=== PATIENT | female | born 1960 | race Caucasian/White ===

== ENCOUNTER 2020-05-04 14:02 | Observation (INO) | payer OTHER, SELFPAY ==
[2020-05-04] VITALS (16 sets, daily range): BP systolic 116–141; BP diastolic 63–79; PULSE 88–106; RESP 18–28; TEMP 36.6–37.2; O2SAT 91–96; BMI 31.7
--- NOTE | ~2020-05-04 | XR_ITS ---
EXAMINATION: XR chest 2V DATE: 05/04/2020 15:12 INDICATION: Chest pain TECHNIQUE: PA and lateral views of the chest are obtained. COMPARISON: 05/03/2019 FINDINGS: The lungs are free of acute opacities. There is no pleural effusion or pneumothorax. The ca rdiomediastinal silhouette is normal. There is mild thoracic spondylosis. There are changes of anteri or fusion procedure in the lower cervical spine. IMPRESSION: 1. No acute cardiopulmonary abnormality. Reviewed, dictated and finalized at location A.
--- NOTE | 2020-05-04 14:14 | ECG_ITS ---
Measurements Intervals [place] Rate: 94 P: 77 MT: 201 QRS: 14 QRSD: 98 T: 63 QT: 333 QTc: 418 Interpretive Statements SINUS RHYTHM BORDERLINE AV CONDUCTION DELAY POSSIBLE LEFT ATRIAL ENLARGEMENT CANNOT RULE OUT SEPTAL INFARCT, AGE INDETERMINATE BASELINE ARTIFACT- I, II, AVR, AVL ABNORMAL ECG Electronically Signed On 05-04-2020 14:41:02 CDT by Channing Mckeon D.O.
[2020-05-04 14:43] LABS: Basophils Percent Auto 0.3 % (0.2-1.2); Hematocrit 47.8 % (37.0-47.0); Hemoglobin 15.3 g/dL (12.0-15.0); Immature Granulocyte Absolute 0.03 K/mm3 (0.00-0.031); Immature Granulocyte Percent A 0.5 % (0-0.5); Lymphocytes Absolute Auto 0.53 K/mm3 (0.9-3.2); Lymphocytes Percent Auto 8.4 % (18.3-44.2); Mean Corpuscular Volume 84.3 fl (80-100); Mean Platelet Volume 9.5 fl (7.4-10.4); Monocytes Absolute Auto 0.1 K/mm3 (0.1-0.6); Monocytes Percent Auto 1.4 % (2.6-8.5); Neutrophils Absolute Auto 5.6 K/mm3 (1.3-6.7); Neutrophils Percent Auto 89.4 % (45.5-73.1); Platelet Count Result 246 k/mm3 (150-375); Red Blood Count 5.67 M/mm3 (4.2-5.4); Red Cell Distribution Width 13.7 % (11.5-14.5); White Blood Count 6.3 K/mm3 (4.5-10.0)
[2020-05-04 14:52] LABS: Prothrombin Time 12.5 Seconds (11.1-14.7)
[2020-05-04 14:53] LABS: Partial Thromboplastin Time 24.7 SECONDS (22.3-36.8)
[2020-05-04 14:54] LABS: Blood Urea Nitrogen 17 mg/dL (7-17); Calcium 9.3 mg/dL (8.4-10.2); Carbon Dioxide 28 mmol/L (22-30); Chloride 95 mmol/L (98-107); Estimated CRCL calculation 105 ml/min; Estimated Glomerular Filt Rate > 60; Glucose 254 mg/dL (65-105); Potassium 4.7 mmol/L (3.4-5.0); Sodium 133 mmol/L (137-145)
[2020-05-04 15:05] LABS: Troponin I < 0.012 ng/mL (0.000-0.034)
--- NOTE | 2020-05-04 15:06 | ED.GENADULT ---
HPI - General Adult General Chief complaint: Recheck/Abnormal Lab/Rx Stated complaint: think i have pneumonia Time Seen by Provider: 05/04/20 15:06 Source: patient Mode of arrival: wheelchair Limitations: no limitations History of Present Illness HPI narrative: Patient is a 59-year-old female with a history of COPD who presents for evaluation of cough and shortness of breath. Patient had low oxygen saturation at her cardiology appointment this morning and was referred to our facility. Patient with oxygen saturation of anywhere from 87 to 88% on room air with shortness of breath, audible wheezing and productive cough. Patient denies fever, chills or myalgias. No cough, congestion, loss of sense of smell or taste. Patient denies nausea or vomiting. She states she has numerous episodes such as this in the past, attributes it to her COPD. She states that she has been using her albuterol inhalers and has been on a steroid taper without much improvement in her symptoms. She denies leg swelling or pain. She reports intermittent stabbing chest pain with deep inspiration, but no chest pain currently. Related Data Home Medications Medication Instructions Recorded Confirmed atorvastatin 40 mg tablet 40 mg PO DAILY 09/18/19 09/19/19 cyanocobalamin (B12)-cobamamide 1 SUBLINGUAL DAILY 09/18/19 09/19/19 5,000 mcg-100 mcg sublingual lozenge estradiol 1 mg tablet 1 mg PO DAILY 09/18/19 09/19/19 famotidine 40 mg tablet 40 mg PO DAILY 09/18/19 09/19/19 fenofibrate 160 mg tablet 160 mg PO DAILY 09/18/19 09/19/19 immune globul G-gly-IgA avg 46 50 mg/kg SUBCUT MONTHLY 09/18/19 09/19/19 levothyroxine 50 mcg tablet 50 mcg PO DAILY 09/18/19 09/19/19 metoprolol tartrate 50 mg tablet 25 mg PO BID 09/18/19 09/19/19 calcium carbonate-vitamin D3 600 1 cap PO DAILY 09/19/19 09/19/19 mg calcium-200 unit capsule aspirin 81 mg tablet,delayed 81 mg PO DAILY 11/25/19 release albuterol sulfate 2 inh INHALATION Q4-6H PRN 05/04/20 05/04/20 fluticasone propion-salmeterol 1 inh INHALATION DAILY 05/04/20 05/04/20 [Wixela Inhub] insulin NPH isoph U-100 human See Rx Instructions .ROUTE .COMPLEX 05/04/20 05/04/20 [Humulin N NPH U-100 Insulin] insulin lispro See Rx Instructions .ROUTE .COMPLEX 05/04/20 05/04/20 ipratropium bromide [Atrovent HFA] 2 inh INHALATION QID 05/04/20 05/04/20 potassium chloride 10 meq PO BID 05/04/20 05/04/20 Allergies Allergy/AdvReac Type Severity Reaction Status Date / Time Sulfa (Sulfonamide Allergy Unknown unknown Verified 09/19/19 11:32 Antibiotics) sulfamethoxazole Allergy Unknown unknown Verified 09/19/19 11:32 Review of Systems Review of Systems: Narrative: CONSTITUTIONAL: Denies fever CARDIOVASCULAR: Denies current chest pain RESPIRATORY: Reports cough and shortness of breath GASTROINTESTINAL: Denies abdominal pain SKIN: Denies rash MUSCULOSKELETAL: Denies back pain NEUROLOGIC: Denies headache PMF Past Medical History Medical History Allergic rhinitis Asthma Asthma-COPD overlap syndrome CVID (common variable immunodeficiency) TATUM (obstructive sleep apnea) RLS (restless legs syndrome) Tobacco abuse Social History Social History Years smoked: 41 Smoking status: Current every day smoker Gender identity (if verbalized by the patient): Female Exam Narrative: Exam Narrative: GENERAL: Awake, alert, conversant HEAD: Normocephalic, atraumatic. EYES: PERRLA and EOMI. ENT: Nares clear, no rhinorrhea or epistaxis. Mucous membranes moist. NECK: Supple. CHEST: Audible wheezing, tachypnea, no use of accessory muscles to breathe, able to speak in short sentences, expiratory wheezing bilaterally, no chest wall tenderness HEART: Borderline tachycardic rate, sinus rhythm ABDOMEN:Non distended, non tender EXTREMITIES: Normal range of motion. No edema. SKIN: Warm, dry, no rash. NEURO:No focal deficit
[2020-05-04] MEDS: ALBUTEROL SULFATE NEB 2.5 MG/0.5 ML INH 5 MG INHALATION ×2 (15:47→21:40)
[2020-05-04] MEDS: IPRATROPIUM BR 0.02% INH SOLN 0.5 MG/2.5 ML VIAL INHALATION ×2 (15:48→21:41)
[2020-05-04] MEDS: ASPIRIN 81 MG CHEWABLE TABLET 324 MG PO (16:19)
[2020-05-04] MEDS: SODIUM CHLORIDE 0.9% IV 500 ML 999 ML IV CONT (16:20)
[2020-05-04] MEDS: methylPREDNISolone SOD SUCC 125 MG VIAL IV PUSH (16:22)
[2020-05-04] MEDS: MAGNESIUM SULF 2 GM/WATER 50ML 2 GM/50 ML BAG IVPB (16:24)
[2020-05-04 17:57] LABS: Troponin I < 0.012 ng/mL (0.000-0.034)
--- NOTE | 2020-05-04 18:46 | ADMGEN ---
This patient, Alma Anderson, was admitted to IMU Room 200-01 @ 1833. [facility] Patient oriented to hospital policies and general routines including ID bracelet, bed and alarms, visiting hours, pain management, procedures, bathroom and other care routines, personal items, smoking policy, room service/diet, and visiting hours. Valuables list has been completed. Information on how to activate the Rapid Response Team has been discussed. Patient encouraged to report perceived risks to care and to ask questions if do not understand what is told or
--- NOTE | 2020-05-04 19:43 | PM.IMHP ---
H&P: HPI History of Present Illness Chief complaint: Dyspnea/COPD exacerbation Narrative: This is a pleasant 59 year old female with known COPD, CVID, TATUM on home CPAP who is a chronic smoker and was referred to the [facility] by her Sales Representative [employer], Dr. Jones secondary to saturating 88% at his office today. The patient has been experiencing a dry cough, increased shortness of breath, wheezing, and chest tightness over the past few days. She denies any fevers, chills, nausea, vomiting, abdominal pain, headache, sore throat, LE pain, dysuria, hematuria or rectal bleeding. the patient has had intermitted midsternal chest pain today which she says is worse with breathing deep. She was placed on 2 liters of NC and given breathing treatment, steroids, and antibiotics in the ER. She has been admitted to the hosptial for a COPD exacerbation. No other complaints. Review of Systems Review of Systems: All systems reviewed & are unremarkable except as noted in HPI and below PMFSH Past Medical History Medical History Allergic rhinitis Asthma Asthma-COPD overlap syndrome CVID (common variable immunodeficiency) Diabetes mellitus TATUM (obstructive sleep apnea) RLS (restless legs syndrome) Tobacco abuse Family History Family History Sibling Lung cancer Social History Social History Smoking packs per day: 1 Smoking cigarettes per day: 20.0 Years smoked: 40 Smoking pack-years: 40.00 Smoking status: Current every day smoker Tobacco type: cigarettes Alcohol intake: former Substance use: never Gender identity (if verbalized by the patient): Female Spiritual care concerns: No Meds Home Medications and Allergies Home Medications Medication Instructions Recorded Confirmed Type albuterol sulfate 2.5 mg INHALATION QID PRN #180 ml 09/02/19 05/04/20 Rx atorvastatin 40 mg tablet 40 mg PO DAILY 09/18/19 05/04/20 History famotidine 40 mg tablet 40 mg PO DAILY 09/18/19 05/04/20 History fenofibrate 160 mg tablet 160 mg PO DAILY 09/18/19 05/04/20 History levothyroxine 50 mcg tablet 50 mcg PO DAILY 09/18/19 05/04/20 History metoprolol tartrate 50 mg tablet 50 mg PO BID 09/18/19 05/04/20 History montelukast 10 mg tablet 10 mg PO DAILY #30 tablet 11/17/19 05/04/20 Rx aspirin 81 mg tablet,delayed 81 mg PO DAILY 11/25/19 05/04/20 History release prednisone 10 mg tablet See Rx Instructions .ROUTE 12/22/19 05/04/20 Rx .COMPLEX #24 tablet albuterol sulfate 2 inh INHALATION Q4-6H PRN 05/04/20 05/04/20 History alprazolam 1 mg PO HS 05/04/20 05/04/20 History diclofenac sodium [Voltaren-XR] 75 mg PO BID 05/04/20 05/04/20 History estradiol 1 mg PO DAILY 05/04/20 05/04/20 History fluconazole 100 mg PO DAILY 05/04/20 05/04/20 History furosemide 40 mg PO DAILY 05/04/20 05/04/20 History glipizide 5 mg PO DAILY 05/04/20 05/04/20 History immun glob G(IgG)-pro-IgA 0-50 40 g IV ONCE 05/04/20 05/04/20 History [Privigen] insulin NPH isoph U-100 human 30 unit SUBCUT QID 05/04/20 05/04/20 History [Humulin N NPH U-100 Insulin] insulin NPH isoph U-100 human See Rx Instructions .ROUTE .COMPLEX 05/04/20 05/04/20 History [Humulin N NPH U-100 Insulin] insulin glulisine U-100 [Apidra 20 unit SUBCUT QID 05/04/20 05/04/20 History U-100 Insulin] insulin lispro See Rx Instructions .ROUTE .COMPLEX 05/04/20 05/04/20 History insulin syringe-needle U-100 05/04/20 05/04/20 History ipratropium bromide 1 spray INTRANASAL DAILY 05/04/20 05/04/20 History ipratropium bromide [Atrovent HFA] 2 inh INHALATION QID 05/04/20 05/04/20 History metformin 500 mg PO DAILY 05/04/20 05/04/20 History nitroglycerin 0.4 mg SUBLINGUAL PRN PRN 05/04/20 05/04/20 History nystatin 100,000 unit TOPICAL DAILY 05/04/20 05/04/20 History omeprazole 20 mg PO DAILY 05/04/20 05/04/20 History oxycodone-acetaminophen 10 tab
[2020-05-04 21:11] LABS: Troponin I < 0.012 ng/mL (0.000-0.034)
[2020-05-04 23:51] LABS: Glucose Point of Care 291 (65-105)
[2020-05-04] MEDS: IBUPROFEN 400 MG TABLET PO (23:55)
[2020-05-05] VITALS (20 sets, daily range): BP systolic 130–156; BP diastolic 43–72; PULSE 65–96; RESP 12–24; TEMP 36.1–37.2; O2SAT 88–97
[2020-05-05] MEDS: IPRATROPIUM BR 0.02% INH SOLN 0.5 MG/2.5 ML VIAL INHALATION ×4 (02:29→20:59)
[2020-05-05] MEDS: ALBUTEROL SULFATE NEB 2.5 MG/0.5 ML INH 5 MG INHALATION ×4 (02:29→20:59)
[2020-05-05 04:42] LABS: Basophils Percent Auto 0.2 % (0.2-1.2); Hematocrit 42.6 % (37.0-47.0); Hemoglobin 13.8 g/dL (12.0-15.0); Immature Granulocyte Absolute 0.03 K/mm3 (0.00-0.031); Immature Granulocyte Percent A 0.5 % (0-0.5); Lymphocytes Absolute Auto 0.67 K/mm3 (0.9-3.2); Lymphocytes Percent Auto 11.3 % (18.3-44.2); Mean Corpuscular HGB Conc 32.4 g/dl (32-36); Mean Corpuscular Hemoglobin 26.8 pg (26-34); Mean Corpuscular Volume 82.7 fl (80-100); Mean Platelet Volume 9.6 fl (7.4-10.4); Monocytes Absolute Auto 0.3 K/mm3 (0.1-0.6); Monocytes Percent Auto 4.6 % (2.6-8.5); Neutrophils Absolute Auto 4.9 K/mm3 (1.3-6.7); Neutrophils Percent Auto 83.4 % (45.5-73.1); Platelet Count Result 215 k/mm3 (150-375); Red Blood Count 5.15 M/mm3 (4.2-5.4); Red Cell Distribution Width 13.4 % (11.5-14.5); White Blood Count 5.9 K/mm3 (4.5-10.0)
[2020-05-05 04:56] LABS: Blood Urea Nitrogen 12 mg/dL (7-17); Calcium 8.6 mg/dL (8.4-10.2); Carbon Dioxide 32 mmol/L (22-30); Chloride 99 mmol/L (98-107); Estimated CRCL calculation 163 ml/min; Estimated Glomerular Filt Rate > 60; Glucose 196 mg/dL (65-105); Magnesium 1.6 mg/dL (1.6-2.3); Potassium 3.7 mmol/L (3.4-5.0); Sodium 134 mmol/L (137-145)
[2020-05-05] MEDS: methylPREDNISolone SOD SUCC 125 MG VIAL 60 MG IV PUSH ×3 (06:11→18:28)
[2020-05-05 08:44] LABS: Glucose Point of Care 116 (65-105)
[2020-05-05] MEDS: ASPIRIN 81 MG ENTERIC TABLET PO (08:53)
[2020-05-05] MEDS: ATORVASTATIN 40 MG TABLET PO (08:53)
[2020-05-05] MEDS: FAMOTIDINE 20 MG TABLET 40 MG PO (08:54)
[2020-05-05] MEDS: estradioL 1 MG TABLET PO (08:54)
[2020-05-05] MEDS: PANTOPRAZOLE 40 MG TABLET PO (08:55)
[2020-05-05] MEDS: FUROSEMIDE 40 MG TABLET PO (08:55)
[2020-05-05] MEDS: MONTELUKAST SODIUM 10 MG TABLET PO (08:56)
[2020-05-05] MEDS: PIOGLITAZONE HCL 15 MG TAB PO (08:56)
[2020-05-05] MEDS: METOPROLOL TARTRATE 50 MG TAB PO ×2 (08:56→21:16)
[2020-05-05] MEDS: rOPINIRole HCL 0.5 MG TABLET PO ×3 (08:57→18:23)
[2020-05-05] MEDS: VENLAFAXINE HCL XR 75 MG CAP.ER.24H PO (08:58)
[2020-05-05] MEDS: FENOFIBRATE 160 MG TABLET PO (09:00)
[2020-05-05 12:38] LABS: Glucose Point of Care 320 (65-105)
[2020-05-05] MEDS: INSULIN ASPART (*BKC) 100 UNITS/ML SUB-Q ×2 (13:00→18:22)
--- NOTE | 2020-05-05 13:39 | PM.IMPN ---
Progress Note: A&P Assessment and Plan (1) COPD exacerbation: Code(s): J44.1 - Chronic obstructive pulmonary disease with (acute) exacerbation Status: Acute Assessment and Plan: She is established with Dr. Cash. She had been started on a prednisone taper outpatient with little improvement. Upon arrival, she was satting at 87-88% and was wheezing. She is maintaining adequate oxygenation with 1L O2. Her SOB has improved and she denies sputum production. CO2 mildly elevated. CXR shows no acute abnormalities. Continue solumedrol Continue azithromycin Supplemental O2 as needed to maintain oxygen sat 90% or above Continue bronchodilators Monitor respiratory status closely. (2) TATUM (obstructive sleep apnea): Code(s): G47.33 - Obstructive sleep apnea (adult) (pediatric) Status: Chronic Assessment and Plan: Continue CPAP titrated to home settings. (3) Diabetes mellitus: Qualifiers: Diabetes mellitus complication status: without complication Diabetes mellitus half-way insulin use: with ferry terminal agent use Diabetes mellitus type: type 2 Qualified Code(s): E11.9 - Type 2 diabetes mellitus without complications; Z79.4 - long-term (current) use of insulin Code(s): E11.9 - Type 2 diabetes mellitus without complications Status: Chronic Assessment and Plan: Blood sugars have been variable. She is on several medications including apidra, lispro, and NPH, metformin, and pioglitazone. Check current A1c Continue SSI, accuchecks ACHS, and hypoglycemic protocol Contine glucotrol, metformin, and apidra. Her NPH is nonformulary (4) CVID (common variable immunodeficiency): Code(s): D83.9 - Common variable immunodeficiency, unspecified Status: Chronic Assessment and Plan: She is established with an area development manager in [place] and receives monthly IgG injections. Due for next injection sometime in May. (5) RLS (restless legs syndrome): Code(s): G25.81 - Restless legs syndrome Status: Chronic Assessment and Plan: Stable. Continue ropinirole (6) Tobacco dependence: Code(s): F17.200 - Nicotine dependence, unspecified, uncomplicated Status: Chronic Assessment and Plan: This is worsening her symptoms. She reports she has cut down to 4-5 cigarettes per day and is motivated to continue cutting out cigarettes. I counseled her on smoking cessation for 5 minutes. She declined a nicotine patch. Additional Plan Downgrade to medical floor given stable oxygen requirements. Subjective Date/time seen: 05/05/20 13:39 Interval history: Date of service: 05/05/2020 She reports she is feeling much better today. Her cough has improved and she has not had any sputum production. She denies any shortness of breath, wheezing, or chest pain. She has been able to lay flat without difficulty. She denies fever, chills, nausea, vomiting, abdominal pain, dizziness, lightheadedness, headache, confusion, dysuria, or hematuria. Her appetite has been good. Review of Systems Review of Systems: Narrative: A 12 point review of systems was reviewed with pertinent positives and negatives as per HPI. Exam Narrative: Exam Narrative: Ms. Anderson is examined alone today. She is a well nourished 59 year old female who is lying supine in bed. She appears comfortable and is in NARD. HR 84, BP 139/61, RR 22, T 98.2, 96% on 2L Neuro: awake, alert and oriented x4, speech clear, no focal neuro deficits noted HEENMT: normocephalic, atraumatic, EOMI, sclerae anicteric, moist oral mucosa, tongue midline Neck: supple, no lymphadenopathy Respiratory: diffuse expiratory wheezes, nonlabored breathing Cardio: regular rate, regular rhythm with S1-S2 Abdomen: nondistended, normoactive bowel sounds, soft, nontender to palpation, no rigidity or guarding Extremities: no edema, erythema, cyanosis, clubbing, or tenderness to palpation, DP
[2020-05-05] MEDS: IBUPROFEN 400 MG TABLET PO (18:37)
[2020-05-05 18:50] LABS: Glucose Point of Care 302 (65-105)
[2020-05-05 21:23] LABS: Glucose Point of Care 334 (65-105)
[2020-05-05] MEDS: WATER FOR IRRIGATION, STERILE 1,000 ML BOTTLE 1000 ML (21:30)
--- NOTE | 2020-05-05 21:46 | PC.NURSE ---
This patient, Alma Anderson, was transferred to [facility] 05/05/20 at 2130. Personal belongings sent with patient. Belongings list checked and signed with receiving [ ]. Report given to FAN KEEN. Appropriate documentation sent with patient.
[2020-05-05] MEDS: ALPRAZolam 0.5 MG TABLET 1 MG PO (22:29)
[2020-05-06] VITALS (9 sets, daily range): BP systolic 138; BP diastolic 68; PULSE 71–78; RESP 12–20; TEMP 36.6; O2SAT 92–99
[2020-05-06] MEDS: methylPREDNISolone SOD SUCC 125 MG VIAL 60 MG IV PUSH ×2 (00:01→06:25)
[2020-05-06] MEDS: IPRATROPIUM BR 0.02% INH SOLN 0.5 MG/2.5 ML VIAL INHALATION ×2 (02:34→09:30)
[2020-05-06] MEDS: ALBUTEROL SULFATE NEB 2.5 MG/0.5 ML INH 5 MG INHALATION ×2 (02:35→09:29)
[2020-05-06 04:18] LABS: Hemoglobin A1C 8.9 % (<5.7)
[2020-05-06] MEDS: LEVOTHYROXINE SODIUM 50 MCG TABLET PO (06:26)
[2020-05-06 07:54] LABS: Glucose Point of Care 282 (65-105)
[2020-05-06] MEDS: ATORVASTATIN 40 MG TABLET PO (09:09)
[2020-05-06] MEDS: metFORMIN HCL 500 MG TABLET PO (09:10)
[2020-05-06] MEDS: FUROSEMIDE 40 MG TABLET PO (09:10)
[2020-05-06] MEDS: FAMOTIDINE 20 MG TABLET 40 MG PO (09:10)
[2020-05-06] MEDS: MONTELUKAST SODIUM 10 MG TABLET PO (09:10)
[2020-05-06] MEDS: rOPINIRole HCL 0.5 MG TABLET PO (09:10)
[2020-05-06] MEDS: VENLAFAXINE HCL XR 75 MG CAP.ER.24H PO (09:10)
[2020-05-06] MEDS: METOPROLOL TARTRATE 50 MG TAB PO (09:10)
[2020-05-06] MEDS: glipiZIDE 5 MG TABLET PO (09:10)
[2020-05-06] MEDS: PANTOPRAZOLE 40 MG TABLET PO (09:11)
[2020-05-06] MEDS: FENOFIBRATE 160 MG TABLET PO (09:11)
[2020-05-06] MEDS: ASPIRIN 81 MG ENTERIC TABLET PO (09:11)
[2020-05-06] MEDS: estradioL 1 MG TABLET PO (09:11)
[2020-05-06] MEDS: INSULIN ASPART (*BKC) 100 UNITS/ML SUB-Q (09:11)
[2020-05-06] MEDS: PIOGLITAZONE HCL 15 MG TAB PO (09:11)
[2020-05-06] MEDS: INSULIN ASPART (*BKC) 100 UNITS/ML 10 UNITS SUB-Q (09:15)
[2020-05-06 09:28] LABS: Glucose Point of Care 250 (65-105)
--- NOTE | 2020-05-06 10:25 | PM.DS ---
DS: Admitting Diagnosis Admitting Diagnosis Admitting Diagnosis: Chronic obstructive pulmonary disease with (acute) exacerbation DS: Discharge Diagnosis Discharge Diagnosis (1) COPD exacerbation: Code(s): J44.1 - Chronic obstructive pulmonary disease with (acute) exacerbation Status: Acute Assessment and Plan: She was having increased cough and SOB, and had been started on a prednisone taper by her PCP with little improvement. Upon arrival, she was satting at 87-88% and was wheezing. She denied sputum production. CO2 was mildly elevated. CXR showed no acute abnormalities. She was given IV solumedrol, azithromycin, and bronchodilators. She was put on 1L of oxyen which she tolerated well and then weaned to room air. She will continue a PO Prednisone taper, as well as azithromycin to complete 5 days. She is on albuterol and ipratropium at home which she will continue. (2) TATUM (obstructive sleep apnea): Code(s): G47.33 - Obstructive sleep apnea (adult) (pediatric) Status: Chronic Assessment and Plan: Continue CPAP titrated to home settings. (3) Diabetes mellitus: Qualifiers: Diabetes mellitus complication status: without complication Diabetes mellitus senior living insulin use: with senior living use Diabetes mellitus type: type 2 Qualified Code(s): E11.9 - Type 2 diabetes mellitus without complications; Z79.4 - director long term care (current) use of insulin Code(s): E11.9 - Type 2 diabetes mellitus without complications Status: Chronic Assessment and Plan: Current A1c is 8.9. Her blood sugars were elevated, which was probably in part due to variation of her insulin regimen while inpatient. She is on several medications including apidra, lispro, and NPH, metformin, and pioglitazone, several of which were nonformulary. She was given 10 units novolog with meals plus sliding scale, as well as glucotrol and metformin during her stay. She will continue her current regimen outpatient and I instructed her to monitor her blood sugars closely at home. She should review her sugars and her insulin regimen with her PCP. (4) CVID (common variable immunodeficiency): Code(s): D83.9 - Common variable immunodeficiency, unspecified Status: Chronic Assessment and Plan: She is established with an bobbin hauler in [place] and receives monthly IgG injections via home health services. She is due for next injection sometime in May. (5) RLS (restless legs syndrome): Code(s): G25.81 - Restless legs syndrome Status: Chronic Assessment and Plan: Stable. Continue ropinirole (6) Tobacco dependence: Code(s): F17.200 - Nicotine dependence, unspecified, uncomplicated Status: Chronic Assessment and Plan: This is worsening her symptoms. She reports she has cut down to 4-5 cigarettes per day and is motivated to continue cutting out cigarettes. I counseled her on smoking cessation for 5 minutes. She declined a nicotine patch. DS: Summary Hospital Course Reason for hospitalization: Shortness of breath Hospital Course: Date of admission: 05/04/2020 Date of discharge: 05/06/2020 Alma Anderson is a pleasant 59 year old female with known COPD, CVID, TATUM on home CPAP who is a chronic smoker who presented to the emergency department on 05/04/20 after being referred to the hospital by her telecasting engineer, Dr. Jones secondary to saturating 88% at his office. She had been experiencing a dry cough, increased shortness of breath, wheezing, and chest tightness over the past few days. She denies any fevers, chills, or sputum production. At presentation, AVSS, Na 133, CO2 28, glucose 254, troponin <0.012, and CXR with no acute cardiopulmonary findings. She was admitted to the hospitalist service for COPD exacerbation. She had significant symptomatic improvement and was weaned from oxygen. Her lung exam improved. She was very eager for discharge. Given her improve
[2020-05-06 11:39] LABS: Glucose Point of Care 316 (65-105)
== END 2020-05-06 12:12 | disposition home health service (06) ==
LOC: ANHED 15:43 → ANHIMU 18:00 → ANH2MED 05-05 22:43
PROVIDERS: Family Medicine; Admitting Provider Internal Medicine; Emergency Provider Emergency Medicine; PCP Internal Medicine; Visit Provider Physician Assistant
DX: J44.1 Chronic obstructive pulmonary disease with (acute) exacerbation (principal); J96.01 Acute respiratory failure with hypoxia; R07.9 Chest pain, unspecified; D83.9 Common variable immunodeficiency, unspecified; E11.9 Type 2 diabetes mellitus without complications; F17.210 Nicotine dependence, cigarettes, uncomplicated; G47.33 Obstructive sleep apnea (adult) (pediatric); G25.81 Restless legs syndrome; Z79.4 Long term (current) use of insulin
CPT/HCPCS: 36415; 71046; 80048; 83036; 83735; 84484; 85025; 85610; 85730; 93005; 94640; 96361; 96365; 96366; 96367; 96374; 96375; 96376; 99285; A9270; G0378; G0379; J0456; J1815; J2930; J3475; J7040

== ENCOUNTER 2021-02-07 14:21 | Outpatient (CLI) | payer OTHER, SELFPAY ==
--- NOTE | ~2021-02-07 | XR_ITS ---
EXAMINATION: XR lumbar spine 2-3V DATE: 02/07/2021 14:43 INDICATION: Lumbar radicular pain with numbness and tingling TECHNIQUE: Anteroposterior and lateral views of the lumbar spine, and cone-down lateral view of the l umbosacral junction were obtained. COMPARISON: 08/15/2011 FINDINGS: L5 laminectomy and partial L4 laminectomy. L4-S1 posterior spinal fusion with bilateral vertical jenny and pedicle screw fixation. Retained stimulator leads project posterior to the lumbosacral spine poss ibly for bone graft stimulation. Interval development of a 8mm anterolisthesis L3 on L4. Vertebral anabella dy heights are normal. Moderate disc height loss at L3-L4 through L5-S1 which is significantly increa sed at L3-L4. Mild disc height loss at T10-T11. Moderate right-sided and mild left-sided sacroiliac o steoarthritis. Cholecystectomy clips in right upper quadrant.. IMPRESSION: 1. Stable appearance of a chronic instrumented L4-S1 posterior spinal fusion. 2. Interval progression of now moderate disc height loss at L3-L4 with new 8 mm anterolisthesis L3 on L4. Reviewed, dictated and finalized at location A.
--- NOTE | ~2021-02-07 | XR_ITS ---
EXAMINATION:XR_[id number]_CR DATE: 02/07/2021 14:43 INDICATION: Cervical radicular pain with numbness and tingling TECHNIQUE: AP, lateral and odontoid views of the cervical spine are provided. COMPARISON: None FINDINGS: Alignment is normal. Odontoid is intact. Normal atlantoaxial interval. Small amount of heterotopic o ssification in the prevertebral soft tissues anterior to the dens. C5-C6 anterior spinal fusion with anterior plate and screw fixation. Unfused vertebral body heights and disc heights are normal. Multil evel mild cervical facet osteoarthritis. Likely atherosclerotic calcific a cyst at the left carotid b ulb. Visualized apices of lungs are clear. IMPRESSION: 1. C5-C6 anterior spinal fusion. 2. Multilevel mild bilateral cervical facet osteoarthritis. Reviewed, dictated and finalized at location A.
== END 2021-02-07 14:22 | disposition home or self-care (01) ==
LOC: ANHIMG 14:24
PROVIDERS: PCP Family Medicine
DX: M54.16 Radiculopathy, lumbar region (principal); M54.12 Radiculopathy, cervical region; R20.0 Anesthesia of skin; Z98.1 Arthrodesis status; M85.88 Other specified disorders of bone density and structure, other site; R29.890 Loss of height; M43.16 Spondylolisthesis, lumbar region
CPT/HCPCS: 72040; 72100

== ENCOUNTER 2021-05-25 10:53 | Outpatient (CLI) | payer OTHER, SELFPAY ==
--- NOTE | ~2021-05-25 | XR_ITS ---
XR chest 2V DATE: 05/25/2021 11:02 INDICATION: Cough TECHNIQUE: PA and lateral views COMPARISON: 05/04/2022 view chest FINDINGS: Moderate bilateral hyperinflation suggesting obstructive airways disease. No pulmonary infi ltrate or consolidation, pleural effusion or pulmonary vascular congestion or pneumothorax. Normal heart size. There is extensive thoracic aortic calcification. No hilar or mediastinal enlargem ent. Status post lower anterior cervical spine surgical fusion. Diffuse osteopenia. Scoliosis and degenerative change of the spine. IMPRESSION: Moderate hyperinflation; no active cardiopulmonary disease Reviewed, dictated and finalized at location A.
== END 2021-05-25 10:54 | disposition home or self-care (01) ==
PROVIDERS: PCP Nurse Practitioner; Visit Provider Nurse Practitioner Family
DX: R05 Cough (principal); R50.9 Fever, unspecified; R06.00 Dyspnea, unspecified; R91.8 Other nonspecific abnormal finding of lung field
CPT/HCPCS: 71046

== ENCOUNTER 2021-06-23 11:16 | Outpatient (CLI) | payer OTHER, SELFPAY ==
--- NOTE | ~2021-06-23 | XR_ITS ---
EXAMINATION: XR hip RT min 2V DATE: 06/23/2021 11:50 INDICATION: Right hip pain TECHNIQUE: Three views of right hip were obtained. COMPARISON: None. FINDINGS: Bone alignment is normal. There is no fracture. Calcified atherosclerosis is noted. IMPRESSION: 1. No acute osseous abnormality. Reviewed, dictated and finalized at location B.
--- NOTE | ~2021-06-23 | XR_ITS ---
EXAMINATION: XR knee RT min 4V DATE: 06/23/2021 11:50 INDICATION: Right knee pain. TECHNIQUE: 4 views of right knee including standing views were obtained. COMPARISON: Right knee radiographs 02/23/2013 FINDINGS: Bone alignment is normal. No fracture. There is mild osteoarthritis of medial and lateral c ompartments characterized by tiny marginal osteophytes. No joint space narrowing. No knee joint effus ion. There are loose bodies in the posterior knee joint measuring up to 7 mm. IMPRESSION: 1. Mild right knee osteoarthritis. 2. Right knee joint loose bodies. Reviewed, dictated and finalized at location A.
--- NOTE | ~2021-06-23 | XR_ITS ---
EXAMINATION: XR knee LT min 4V DATE: 06/23/2021 11:50 INDICATION: Left knee pain. TECHNIQUE: 4 views of left knee including standing views were obtained. COMPARISON: Left knee radiographs 02/23/2013 FINDINGS: Bone alignment is normal. No fracture. Patella is tripartite. There is moderate osteoarthri tis of medial compartment and mild osteoarthritis of lateral compartment. No knee joint effusion. IMPRESSION: 1. Moderate left knee osteoarthritis. Reviewed, dictated and finalized at location A.
== END 2021-06-23 11:17 | disposition home or self-care (01) ==
LOC: ANHIMG 11:21
PROVIDERS: PCP Nurse Practitioner; Visit Provider Pain Medicine Pain Medicine
DX: M17.0 Bilateral primary osteoarthritis of knee (principal); M24.051 Loose body in right hip
CPT/HCPCS: 73502; 73564

== ENCOUNTER 2021-12-14 10:29 | Outpatient (CLI) | payer OTHER, SELFPAY ==
--- NOTE | ~2021-12-14 | MM_ITS ---
EXAMINATION: MM screening [facility] BI w drea HISTORY: Screening mammogram TECHNIQUE: Craniocaudal and mediolateral oblique 3-D tomosynthesis images were obtained and synthetic 2-D images were generated. CAD analysis was submitted and interpreted. COMPARISON: 05/26/2016, 06/16/2011 BREAST PARENCHYMAL COMPOSITION: There are scattered areas of fibroglandular density. FINDINGS: There is no evidence of suspicious mass, calcification, or architectural distortion to sugg est malignancy in either breast. There has been no suspicious interval change. IMPRESSION: 1. No mammographic evidence of malignancy. 2. Recommend routine screening mammography in one year. BI-RADS Category 1: Negative Reviewed, dictated and finalized at location A. F ENGINEER'S HELPER
== END 2021-12-14 10:30 | disposition home or self-care (01) ==
LOC: ANHIMG 10:30
PROVIDERS: PCP Nurse Practitioner; Visit Provider Obstetrics & Gynecology
DX: Z12.31 Encounter for screening mammogram for malignant neoplasm of breast (principal)
CPT/HCPCS: 77063; 77067

== ENCOUNTER 2022-01-04 15:29 | Inpatient (IN) | payer OTHER, SELFPAY ==
--- NOTE | ~2022-01-04 | XR_ITS ---
EXAMINATION: XR chest PICC line EXAM DATE: 01/07/2022 14:57 INDICATION: PICC placement. TECHNIQUE: Portable AP frontal chest x-ray was obtained. Comparison is made to prior examination from 01/07/2022. FINDINGS: There is a right-sided PICC line in position. There is a nasogastric tube seen with tip col limated off the study, but below the left hemidiaphragm. Cervical fusion hardware. There is aortic ar teriosclerosis. Small amount of right basilar atelectasis and pneumonia (correlation was made with CT performed earlier same date). There is no pneumothorax suspected. There are no pleural effusions. Th ere are no osseous abnormalities identified. IMPRESSION: 1. Patchy bibasilar pneumonia and atelectasis. 2. PICC line, feeding tube in position. Reviewed, dictated and finalized at location G.
--- NOTE | ~2022-01-04 | XR_ITS ---
XR abdomen/kub 1V DATE: 01/06/2022 05:20 INDICATION: Small bowel obstruction TECHNIQUE: Portable supine AP view on 01/06/2022 at 0516 hours COMPARISON: 01/01/2022 portable AP chest 01/01/2022 portable AP chest at [id number] hours 01/04/2022 CT abdomen pelvis FINDINGS: NG tube in lower body of stomach. Surgical clips, right upper quadrant, likely due to cholecystectomy. Status post posterior spinal fusion at L4 S1. There is persistent small bowel gaseous distention with small bowel diameter up to 4 cm approximately . IMPRESSION: Persistent small bowel dilatation NG tube in stomach Reviewed, dictated and finalized at Location A. Reviewed, dictated and finalized at location A.
--- NOTE | ~2022-01-04 | XR_ITS ---
EXAMINATION: XR chest 1V DATE: 01/07/2022 09:22 INDICATION: Hypoxia TECHNIQUE: frontal view of the chest was obtained. COMPARISON: Chest radiograph dated 05/25/2021 FINDINGS: New opacities in the right lower lung zone which on immediately prior CT correspond to a right middle lobe collapse and right lower lobe pneumonia. No pleural effusion or pneumothorax. The cardiomediast inal silhouette is normal. Nasogastric tube tip in proximal side port in the stomach. Cholecystectomy clips in right upper quadrant. Excreted contrast from the earlier contrast-enhanced CT in the bilate ral renal collecting systems. Plate and screw fixation for lower cervical anterior spinal fusion. IMPRESSION: 1. Right middle lobe collapse and right lower lobe pneumonia. Reviewed, dictated and finalized at location A.
--- NOTE | ~2022-01-04 | XR_ITS ---
EXAMINATION: XR chest 1V portable DATE: 01/08/2022 05:28 INDICATION: Pneumonia and right middle lobe collapse TECHNIQUE: frontal view of the chest was obtained. COMPARISON: Chest radiograph and CT dated 01/07/2022 FINDINGS: Persistent opacities in the right lower lung zone with silhouetting of the right heart border which b ased on prior CT corresponds to a combination of right middle lobe collapse and right lower lobe pneu monia. Calcified right middle lobe nodule consistent with old granulomatous disease. Left lung remain s clear. No pleural effusion or pneumothorax. The cardiomediastinal silhouette is normal. Nasogastric tube extends into the stomach. Right upper extremity peripherally inserted central venous catheter (PICC) tip at the caudal superior vena cava. Cholecystectomy clips in right upper quadrant . Plate and screw fixation for lower cervical anterior spinal fusion. IMPRESSION: 1. Stable opacity right lower lung zone corresponding to right middle lobe collapse and right lower l obe pneumonia. Reviewed, dictated and finalized at location A. IMPRESSION: 1. Stable opacity right lower lung zone corresponding to right middle lobe pipo apse and right lower lobe pneumonia.
--- NOTE | ~2022-01-04 | CT_ITS ---
EXAMINATION: CTA chest PE protocol DATE: 01/07/2022 08:37 INDICATION: Hypoxia TECHNIQUE: Computed tomography (CT) pulmonary angiogram of the chest was performed with 100 mL Omnipa que-350 intravenous contrast. Additional 3D reconstructions utilizing coronal maximum intensity proje ction (MIP) were performed. The dose-length product was 246.67 mGy-cm. COMPARISON: None FINDINGS: Adequate but suboptimal contrast opacification of the pulmonary arteries. There is mild streak artifa ct from dense contrast in the superior vena cava and right atrium. Mild scattered respiratory motion artifact. Ligament at this decreases sensitivity in some of the smaller subsegmental pulmonary arteri es. No pulmonary embolism. Right middle lobe collapse. Small centrilobular solid and groundglass nodu les throughout the right lower lobe consistent with pneumonia. 1 cm subsolid nodule in the right uppe r lobe. Mild bibasilar atelectasis. No pulmonary edema, pleural effusion or pneumothorax. Calcified n odule in the collapsed right middle lobe along with calcified right hilar and mediastinal lymph nodes and multiple hepatic and splenic calcifications consistent with old granulomatous disease. Heart siz e is normal. Atherosclerotic coronary artery calcific location. No pericardial effusion. Thoracic aor ta is normal in caliber with no dissection. Nasogastric tube tip in the body of the stomach. No patho logically enlarged thoracic lymphadenopathy. Cholecystectomy clips the gallbladder fossa. There appea rs to be some asymmetric edematous wall thickening at the anterior fundus of the stomach. IMPRESSION: 1. No pulmonary embolism. Sensitivity mildly decreased in some of the smaller subsegmental pulmonary arteries due to suboptimal contrast opacification and some respiratory motion. 2. Right lower lobe pneumonia and right middle lobe collapse. 3. Indeterminate 1 cm subsolid right upper lobe nodule, most likely infectious/inflammatory in etiolo gy but would recommend 3 month follow-up low-dose noncontrast chest CT. 4. Edematous-appearing wall thickening at the anterior fundus of the stomach which could be peptic ul cer disease or nonspecific gastritis. Reviewed, dictated and finalized at location A. IMPRESSION: 1. No pulmonary embolism. Sensitivity mildly decreased in some of the smaller s ubsegmental pulmonary arteries due to suboptimal contrast opacification and oma e respiratory motion. 2. Right lower lobe pneumonia and right middle lobe collapse. 3. Indeterminate 1 cm subsolid right upper lobe nodule, most likely infectious/ inflammatory in etiology but would recommend 3 month follow-up low-dose noncont rast chest CT. 4. Edematous-appearing wall thickening at the anterior fundus of the stomach wh ich could be peptic ulcer disease or nonspecific gastritis.
--- NOTE | ~2022-01-04 | US_ITS ---
EXAMINATION: US venous doppler [facility] DATE: 01/07/2022 08:47 INDICATION: Hypoxia TECHNIQUE: Grayscale ultrasound images without and with compression and Doppler ultrasound images of the bilateral lower extremity veins were obtained. COMPARISON: None. FINDINGS: The visualized portions of right common femoral vein, profunda (deep) femoral vein, femoral vein, pop liteal vein, posterior tibial veins, peroneal veins, gastrocnemius vein and greater saphenous vein ou tflow are patent. The visualized portions of left common femoral vein, profunda femoral vein, femoral vein, popliteal v ein, posterior tibial veins, peroneal veins, gastrocnemius vein and greater saphenous vein outflow ar e patent. IMPRESSION: 1. No deep venous thrombosis in either lower limb. Reviewed, dictated and finalized at location A.
--- NOTE | ~2022-01-04 | CT_ITS ---
EXAMINATION: CT abdomen pelvis w con EXAM DATE: 01/04/2022 17:29 INDICATION: abd pain AND Distention x10 days, N/V . TECHNIQUE: Spiral CT of the abdomen and pelvis was performed following intravenous injection of 100 m L Omnipaque 350. Axial, coronal and sagittal images of the abdomen and pelvis were reviewed. The do se-length product (DLP) for this examination was 805.92 mGy-cm. The exposure was tailored according to patient size (auto mA exposure control), and iterative reconstruction (ASIR) was used as additiona l dose reduction technique. Comparison is made to prior examination from 08/23/2009. FINDINGS: The liver, spleen, adrenal glands and pancreas are unremarkable. Gallbladder not identifie d, patient likely has had cholecystectomy. The portal vein measures 2.0 cm diameter, enlarged, could indicate portal hypertension. Portal and splenic veins are patent. Kidneys enhance symmetrically. T here is no hydronephrosis. The uterus is not identified and has likely been surgically resected. T he bladder is unremarkable. There is no retroperitoneal or pelvic lymphadenopathy. Moderate-sized umbilical fat-containing hernia, smaller adjacent left periumbilical fat-containing hernia. There is extensive scattered arterial sclerosis. Multiple loops of severely distended jejunum, small bowel obstruction. The ileum is collapsed. No pne umatosis or perforation. Point of obstruction appears to be in the right mid abdomen, and also causin g completely collapsed hepatic flexure in same location. Internal hernia or adhesions should be consi dered. There are no findings to suggest appendicitis. No free intraperitoneal gas. The heart is normal i n size. There are no pericardial or pleural effusions. Right middle lobe calcified granuloma. Ther e are no osteoblastic or osteolytic lesions identified. L4-S1 posterior lumbar fusion. 7 mm anterolis thesis L3 on L4. IMPRESSION: 1. Bowel obstruction, with small bowel transition point and also hepatic flexure transition point. C onsider adhesions or internal hernia. 2. Dilated portal vein, probable portal hypertension. Reviewed, dictated and finalized at location G. IMPRESSION: 1. Bowel obstruction, with small bowel transition point and also hepatic flexu re transition point. Consider adhesions or internal hernia. 2. Dilated portal vein, probable portal hypertension.
--- NOTE | ~2022-01-04 | XR_ITS ---
EXAMINATION: XR UGI water soluble w sbs DATE: 01/07/2022 14:00 INDICATION: Small bowel obstruction TECHNIQUE: Water-soluble contrast was administered through the patient's existing nasogastric tube. C onventional supine abdomen radiographs and fluoroscopic spot radiographs of the stomach, and proximal small bowel were obtained. Additional overhead radiographs were obtained during the transit through the small bowel. Fluoroscopy exposure time was 0.3 minutes. A total of 12 fluoroscopic images and 9 o verhead radiographs were obtained. COMPARISON: CT dated 01/04/2022 FINDINGS: Trim Die Maker image demonstrates nasogastric tube with tip in proximal side port in the body of the stomach. Cholecystectomy clips in right upper quadrant. L5 laminectomy and partial L4 laminectomy. Lower lumba r posterior spinal fusion with bilateral vertical jenny and pedicle screw fixation at L4-S1. Likely bon e graft stimulator leads project over the posterior elements of the lumbar spine on both the left and right. Excreted contrast from prior imaging is seen in the bilateral renal collecting systems and in the bladder. The stomach is normal. There is no hiatal hernia. There is relatively rapid transit of contrast throu gh the the jejunum and into the more distal ileum within the first 15 minutes of imaging. Dilation of multiple loops of jejunum throughout the abdomen and pelvis. There is minimal roll changer the next 4 hours and 15 minutes. At this point the study was terminated at the request of the referring physici an with no evident contrast opacification of the stool filled cecum at the conclusion of the procedur e. IMPRESSION: 1. Persistent small bowel obstruction in the distal ileum. Reviewed, dictated and finalized at location A.
--- NOTE | ~2022-01-04 | XR_ITS ---
EXAMINATION: XR abdomen/kub 1V DATE: 01/08/2022 05:28 INDICATION: Small bowel obstruction TECHNIQUE: A supine view of the abdomen was obtained. COMPARISON: Upper GI study dated 01/07/2022 FINDINGS: Nasogastric tube tip at the gastric pylorus with proximal side-port in the distal body of the stomach . Cholecystectomy clips in right upper quadrant. Significant amount of residual oral contrast materia l throughout the still mildly dilated small bowel. Is unclear whether there is been any passage of co ntrast into the cecum which contains a small amount of residual stool. Instrumented L4-S1 posterior s annita fusion with residual bone graft stimulator leads. IMPRESSION: 1. Persistent small bowel obstruction. 2. Nasogastric tube tip near the gastric pylorus. Consider withdrawal by 4 cm. Reviewed, dictated and finalized at location A.
--- NOTE | ~2022-01-04 | XR_ITS ---
EXAMINATION: XR abdomen NG/feed tube insert EXAM DATE: 01/04/2022 19:01 INDICATION: Nasogastric tube placement. TECHNIQUE: Frontal projection(s) of the abdomen for interpretation. There is no prior study for edward neely. FINDINGS: Feeding tube is in position. There are severely dilated small bowel loops, obstruction. Co rrelate with CT report same date. Lung bases unremarkable. Lumbar fusion hardware. Cholecystectomy cl ips. Contrast within renal calyces. IMPRESSION: 1. Feeding tube in position. 2. Small bowel obstruction. Reviewed, dictated and finalized at location G.
--- NOTE | ~2022-01-04 | XR_ITS ---
XR abdomen NG/feed tube insert INDICATION: Evaluate NG tube position. TECHNIQUE: Limited KUB perform for evaluating NG tube . COMPARISON: No prior studies for comparison. FINDINGS: NG tube tip in the stomach. Visualized bowel gas pattern is nonspecific.There are cholecys tectomy clips. IMPRESSION: 1: NG tube tip in the stomach. Reviewed, dictated and finalized at location A.
--- NOTE | ~2022-01-04 | XR_ITS ---
EXAMINATION: XR chest 2V EXAM DATE: 01/12/2022 09:06 INDICATION: RML collapse and pneumonia . TECHNIQUE: Frontal and lateral projections of the chest obtained and reviewed. Comparison is made to prior examination from 01/08/2022. FINDINGS: There is progression in the right basilar by and loss, airspace disease. Multi segmental r ight middle and lower lobe atelectasis and pneumonia, correlating with the pulmonary CT from several days ago. Left lung is clear. No pneumothorax. There is a right-sided PICC line, tip projecting over the cavoatrial junction. There is aortic arteriosclerosis. Cervical fusion hardware. IMPRESSION: Progression of right middle and lower lobe pneumonia and atelectasis. Follow-up to resol ution is indicated to exclude any underlying chronic process. Reviewed, dictated and finalized at location B. IMPRESSION: Progression of right middle and lower lobe pneumonia and atelectas is. Follow-up to resolution is indicated to exclude any underlying chronic proc ess.
--- NOTE | ~2022-01-04 | XR_ITS ---
XR abdomen/kub 1V 01/05/2022 07:11 Indication: Small bowel obstruction Procedure: KUB Comparison: 01/04/2022 Findings: Persistent dilated small bowel loops without significant gas in the colon, consistent with obstruction. There are surgical changes at the lumbosacral junction. No abnormal calcifications or ma sses. There are cholecystectomy clips. NG tube tip near the gastroesophageal junction, side port abov e the GE junction. Recommend advancement. Impression: 1: Persistent small bowel obstruction. Reviewed, dictated and finalized at location A. Impression: 1: Persistent small bowel obstruction.
[2022-01-04 15:52] VITALS: BP 142/103; PULSE 97; RESP 15; TEMP 36.4; O2SAT 95
[2022-01-04 16:50] LABS: Basophils Percent Auto 0.4 % (0.2-1.2); Eosinophils Absolute Auto 0.1 K/mm3 (0-0.3); Eosinophils Percent Auto 1.4 % (0-4.4); Hematocrit 43.3 % (37.0-47.0); Hemoglobin 14.8 g/dL (12.0-15.0); Immature Granulocyte Absolute 0.03 K/mm3 (0.00-0.031); Immature Granulocyte Percent A 0.4 % (0-0.5); Lymphocytes Absolute Auto 1.64 K/mm3 (0.9-3.2); Lymphocytes Percent Auto 23.8 % (18.3-44.2); Mean Corpuscular HGB Conc 34.2 g/dl (32-36); Mean Platelet Volume 9.2 fl (7.4-10.4); Monocytes Absolute Auto 0.7 K/mm3 (0.1-0.6); Monocytes Percent Auto 9.4 % (2.6-8.5); Neutrophils Absolute Auto 4.5 K/mm3 (1.3-6.7); Neutrophils Percent Auto 64.6 % (45.5-73.1); Platelet Count Result 256 k/mm3 (150-375); Red Blood Count 5.28 M/mm3 (4.2-5.4); Red Cell Distribution Width 13.1 % (11.5-14.5); White Blood Count 6.9 K/mm3 (4.5-10.0)
[2022-01-04 17:03] LABS: Alanine Aminotransferase 18 U/L (4-35); Albumin Level 3.7 g/dL (3.5-5.1); Alkaline Phosphatase 91 U/L (38-126); Anion Gap 7 mmol/L (8-16); Aspartate Amino Transferase 31 U/L (14-36); Bilirubin,Total 0.6 mg/dL (0.2-1.3); Blood Urea Nitrogen 11 mg/dL (7-17); Calcium 8.7 mg/dL (8.4-10.2); Carbon Dioxide 28 mmol/L (22-30); Chloride 91 mmol/L (98-107); Estimated CRCL calculation 116 ml/min; Estimated Glomerular Filt Rate > 60; Glucose 151 mg/dL (65-110); Lipase 31 U/L (23-300); Potassium 3.7 mmol/L (3.4-5.0); Sodium 126 mmol/L (137-145)
--- NOTE | 2022-01-04 18:04 | ED.ABDPAIN ---
HPI - Abdominal Pain General Chief Complaint: Abdominal Pain Stated Complaint: distended abd and pain Time Seen by Provider: 01/04/22 16:06 Source: patient and family Limitations: no limitations History of Present Illness HPI narrative: Patient is 61 years old white female came to the emergency because of diffuse abdominal pain, nausea and frequent vomiting started 10 days ago. Patient reported that her abdomen is getting bigger every day more than the day before. Did not eat or drink over the last 10 days. Patient denies any fever, chills, chest pain, shortness of breath or back pain or having similar symptoms. History of diabetes, hypertension, hyperlipidemia, asthma, hypothyroidism, TIA, cholecystectomy, appendectomy, hysterectomy, hernia repair. Patient is a smoker, does not drink or uses marijuana Related Data Home Medications Medication Instructions Recorded Confirmed atorvastatin 40 mg tablet 40 mg PO DAILY 09/18/19 05/25/21 famotidine 40 mg tablet 40 mg PO DAILY 09/18/19 05/25/21 fenofibrate 160 mg tablet 160 mg PO DAILY 09/18/19 05/25/21 levothyroxine 50 mcg tablet 50 mcg PO DAILY 09/18/19 05/25/21 metoprolol tartrate 50 mg tablet 50 mg PO BID 09/18/19 05/25/21 aspirin 81 mg tablet,delayed 81 mg PO DAILY 11/25/19 05/25/21 release Apidra U-100 Insulin 20 unit SUBCUT QID 05/04/20 05/25/21 Humulin N NPH U-100 Insulin 30 unit SUBCUT QID 05/04/20 05/25/21 Privigen 40 g IV ONCE 05/04/20 05/25/21 alprazolam 1 mg PO HS 05/04/20 05/25/21 diclofenac sodium [Voltaren-XR] 75 mg PO BID 05/04/20 05/25/21 estradiol 1 mg PO DAILY 05/04/20 05/25/21 furosemide 40 mg PO DAILY 05/04/20 05/25/21 glipizide 5 mg PO DAILY 05/04/20 05/25/21 insulin lispro See Rx Instructions .ROUTE .COMPLEX 05/04/20 05/25/21 insulin syringe-needle U-100 05/04/20 05/25/21 ipratropium bromide 1 spray INTRANASAL DAILY 05/04/20 05/25/21 metformin 500 mg PO DAILY 05/04/20 05/25/21 nitroglycerin 0.4 mg SUBLINGUAL PRN PRN 05/04/20 05/25/21 nystatin 100,000 unit TOPICAL DAILY 05/04/20 05/25/21 omeprazole 20 mg PO DAILY 05/04/20 05/25/21 oxycodone-acetaminophen 10 tablet PO PRN PRN 05/04/20 05/25/21 pen needle, diabetic [BD 05/04/20 05/25/21 Ultra-Fine Mini Pen Needle] pioglitazone 15 mg PO DAILY 05/04/20 05/25/21 potassium chloride 10 meq PO BID 05/04/20 05/25/21 pseudoephedrine HCl [Sudafed] 30 mg PO Q4-6H PRN 05/04/20 05/25/21 ropinirole 0.5 mg PO TID 05/04/20 05/25/21 venlafaxine 75 mg PO DAILY 05/04/20 05/25/21 trazodone 100 mg tablet 100 mg PO QHS PRN 05/25/21 05/25/21 Allergies Allergy/AdvReac Type Severity Reaction Status Date / Time Sulfa (Sulfonamide Allergy Unknown unknown Verified 05/25/21 09:55 Antibiotics) sulfamethoxazole Allergy Unknown unknown Verified 05/25/21 09:55 Review of Systems Review of Systems: CONSTITUTIONAL: Denies fever, chills, or sweats. EYES: Denies visual changes, redness, or discharge. ENT: Denies rhinorrhea, congestion, sore throat, or otalgia. CARDIOVASCULAR: Denies chest pain, palpitations, or edema. RESPIRATORY: Denies cough or dyspnea. GASTROINTESTINAL: Complaining of abdominal pain, nausea and vomiting GENITOURINARY: Denies dysuria or hematuria. SKIN: Denies rash or itching. MUSCULOSKELETAL: Denies back pain, joint pain, or myalgia. NEUROLOGIC: Denies headache, numbness, or weakness. PSYCHIATRIC: Denies anxiety or depression. [facility] Past Medical History Medical History Allergic rhinitis Asthma Asthma CVID (common variable immunodeficiency) Diabetes mellitus TATUM (obstructive sleep apnea) RLS (restless legs syndrome) Tobacco abuse Family History Family History Sibling Lung cancer Social History Social History Smoking packs per day: 1.5 Smoking cigarettes per day: 30.0 Years smoked: 40 Smoking pack-years: 60.00 Smoking status: Current some day s
[2022-01-04] MEDS: SODIUM CHLORIDE 0.9% IV 1,000 ML 999 ML IV CONT ×2 (18:12→18:18)
[2022-01-04] MEDS: ONDANSETRON INJ 4 MG/2 ML VIAL 8 MG IV PUSH (18:13)
[2022-01-04] MEDS: HYDROmorphone HCL INJ (*CRX) 1 MG/ML SYR 0.5 MG IV PUSH (18:14)
[2022-01-04 19:50] VITALS: BP 138/66; PULSE 83; RESP 18; O2SAT 92
[2022-01-04] MEDS: MORPHINE SULFATE (*CRX) 4 MG/ML INJ IV PUSH ×2 (19:58→22:08)
[2022-01-04 20:40] LABS: SARS-CoV-2 RNA PCR Negative
--- NOTE | 2022-01-04 21:03 | PM.IMHP ---
H&P: HPI History of Present Illness Date/Time: 01/04/22 21:03 Chief Complaint: 61 years old female with past medical history of COPD hypertension diabetes mellitus obstructive sleep apnea and anxiety presented to the hospital with abdominal pain started 10 days ago worsening gradually associated with abdominal distension worsening gradually patient also complained of nausea and vomiting worsening with food currently patient is not able to keep anything down at the ER CT scan was done showed bowel obstruction with transition point surgery was consulted nasogastric tube was placed Review of Systems Review of Systems: All systems reviewed & are unremarkable except as noted in HPI and below PMFSH Past Medical History Medical History Allergic rhinitis Asthma Asthma CVID (common variable immunodeficiency) Diabetes mellitus TATUM (obstructive sleep apnea) RLS (restless legs syndrome) Tobacco abuse Family History Family History Sibling Lung cancer Social History Social History Smoking packs per day: 1.5 Smoking cigarettes per day: 30.0 Years smoked: 40 Smoking pack-years: 60.00 Smoking status: Current some day smoker Tobacco type: cigarettes Alcohol intake: former Substance use: never Gender identity (if verbalized by the patient): Female Spiritual care concerns: No Meds Home Medications and Allergies Home Medications Medication Instructions Recorded Confirmed Type atorvastatin 40 mg tablet 40 mg PO DAILY 09/18/19 05/25/21 History famotidine 40 mg tablet 40 mg PO DAILY 09/18/19 05/25/21 History fenofibrate 160 mg tablet 160 mg PO DAILY 09/18/19 05/25/21 History levothyroxine 50 mcg tablet 50 mcg PO DAILY 09/18/19 05/25/21 History metoprolol tartrate 50 mg tablet 50 mg PO BID 09/18/19 05/25/21 History aspirin 81 mg tablet,delayed 81 mg PO DAILY 11/25/19 05/25/21 History release Apidra U-100 Insulin 20 unit SUBCUT QID 05/04/20 05/25/21 History Humulin N NPH U-100 Insulin 30 unit SUBCUT QID 05/04/20 05/25/21 History Privigen 40 g IV ONCE 05/04/20 05/25/21 History alprazolam 1 mg PO HS 05/04/20 05/25/21 History diclofenac sodium [Voltaren-XR] 75 mg PO BID 05/04/20 05/25/21 History estradiol 1 mg PO DAILY 05/04/20 05/25/21 History furosemide 40 mg PO DAILY 05/04/20 05/25/21 History glipizide 5 mg PO DAILY 05/04/20 05/25/21 History insulin lispro See Rx Instructions .ROUTE .COMPLEX 05/04/20 05/25/21 History insulin syringe-needle U-100 05/04/20 05/25/21 History ipratropium bromide 1 spray INTRANASAL DAILY 05/04/20 05/25/21 History metformin 500 mg PO DAILY 05/04/20 05/25/21 History nitroglycerin 0.4 mg SUBLINGUAL PRN PRN 05/04/20 05/25/21 History nystatin 100,000 unit TOPICAL DAILY 05/04/20 05/25/21 History omeprazole 20 mg PO DAILY 05/04/20 05/25/21 History oxycodone-acetaminophen 10 tablet PO PRN PRN 05/04/20 05/25/21 History pen needle, diabetic [BD 05/04/20 05/25/21 History Ultra-Fine Mini Pen Needle] pioglitazone 15 mg PO DAILY 05/04/20 05/25/21 History potassium chloride 10 meq PO BID 05/04/20 05/25/21 History pseudoephedrine HCl [Sudafed] 30 mg PO Q4-6H PRN 05/04/20 05/25/21 History ropinirole 0.5 mg PO TID 05/04/20 05/25/21 History venlafaxine 75 mg PO DAILY 05/04/20 05/25/21 History inhalational spacing device #1 each 07/14/20 05/25/21 Rx nicotine (polacrilex) 2 mg buccal 2 mg BUCCAL Q1-2H PRN #81 ea 12/08/20 05/25/21 Rx lozenge nicotine 14 mg/24 hr daily 1 patch TRANSDERMAL DAILY #14 ea 12/08/20 05/25/21 Rx transdermal patch benzonatate 200 mg capsule 200 mg PO TID PRN #90 cap 01/20/21 05/25/21 Rx albuterol sulfate 90 mcg/actuation See Rx Instructions .ROUTE 05/02/21 05/25/21 Rx aerosol inhaler .COMPLEX #8.5 g albuterol sulfate 2.5 mg INHALATION QID PRN #360 ml 05/09/21 05/25/21 Rx trazodone 100 mg tablet 10
[2022-01-04 21:42] VITALS: BP 161/90; PULSE 72; RESP 18; O2SAT 94
[2022-01-04 22:13] VITALS: BP 160/86; PULSE 82; RESP 16; O2SAT 95
[2022-01-04 22:22] LABS: Add Urine Microscopic? YES; Appearance Urine Cloudy (Clear); Bilirubin Urine Negative (Negative); Blood Urine 1+ (Negative); Color Urine Yellow (Yellow); Glucose Urine UA Negative (Negative); Ketones Urine Trace mg/dL (Negative); Leukocyte Esterase Ur Negative LEU/UL (Negative); Mucus Urine Rare /lpf; Nitrate Urine Negative (Negative); Protein Urine 2+ mg/dL (Negative); Squamous Epithelial Cell Urine Many /hpf (Few); WBC Urine 0-3 /hpf
[2022-01-04 22:24] LABS: Specific Grav Ur 1.059 (1.001-1.035)
[2022-01-04 22:25] VITALS: BP 131/59; PULSE 87; RESP 16; TEMP 36.4; O2SAT 91
--- NOTE | 2022-01-04 23:13 | ADMGEN ---
This patient, Alma Anderson, was admitted to 3 Med Surg Room 321-01. Patient/family oriented to hospital policies and general routines including ID bracelet, bed and alarms, visiting hours, pain management, procedures, bathroom and other care routines, personal items, smoking policy, room service/diet, and visiting hours. Information on how to activate the Rapid Response Team has been discussed. Patient/Family are encouraged to report perceived risks to care and to ask questions if they do not understand what they are told or what they should do.
[2022-01-04 23:25] LABS: Glucose Point of Care 125 mg/dl (65-105)
[2022-01-04] MEDS: ENOXAPARIN 40 MG/0.4 ML SYRINGE SUB-Q (23:26)
[2022-01-04] MEDS: SODIUM CHLORIDE 0.9% IV 1,000 ML 150 ML IV CONT (23:26)
[2022-01-05] VITALS (12 sets, daily range): BP systolic 122–150; BP diastolic 44–72; PULSE 78–104; RESP 16–20; TEMP 36.1–36.7; O2SAT 90–98
[2022-01-05] MEDS: MORPHINE SULFATE (*CRX) 4 MG/ML INJ IV PUSH ×9 (00:41→23:16)
--- NOTE | 2022-01-05 02:47 | PC.NURSE ---
01/04/22 222 pt's home meds unconfirmed states koriyelena in [place] needs to be contacted to verify meds.
[2022-01-05 05:32] LABS: Glucose Point of Care 125 mg/dl (65-105)
[2022-01-05 06:40] LABS: Alanine Aminotransferase 33 U/L (4-35); Albumin Level 3.5 g/dL (3.5-5.1); Alkaline Phosphatase 99 U/L (38-126); Anion Gap 7 mmol/L (8-16); Aspartate Amino Transferase 67 U/L (14-36); Bilirubin,Total 0.6 mg/dL (0.2-1.3); Blood Urea Nitrogen 9 mg/dL (7-17); Calcium 8.4 mg/dL (8.4-10.2); Carbon Dioxide 28 mmol/L (22-30); Chloride 95 mmol/L (98-107); Estimated CRCL calculation 116 ml/min; Estimated Glomerular Filt Rate > 60; Glucose 117 mg/dL (65-110); Potassium 3.6 mmol/L (3.4-5.0); Sodium 130 mmol/L (137-145)
[2022-01-05 08:02] LABS: Glucose Point of Care 113 mg/dl (65-105)
--- NOTE | 2022-01-05 08:33 | PCRCNOTE ---
PT wears cpap at home but does not want to wear one here at this time
--- NOTE | 2022-01-05 08:47 | PM.IMPN ---
Progress Note: A&P Assessment and Plan (1) SBO (small bowel obstruction): Code(s): K56.609 - Unspecified intestinal obstruction, unspecified as to partial versus complete obstruction Status: Acute Assessment and Plan: -IV pain medication -IV Zofran -IV fluid -NPO -Nasogastric tube placed -Surgery consult (2) Acute hyponatremia: Code(s): E87.1 - Hypo-osmolality and hyponatremia Status: Acute Assessment and Plan: -Probably related to dehydration -IV fluid -Improving (3) COPD (chronic obstructive pulmonary disease): Qualifiers: COPD type: COPD with acute exacerbation Qualified Code(s): J44.1 - Chronic obstructive pulmonary disease with (acute) exacerbation Code(s): J44.9 - Chronic obstructive pulmonary disease, unspecified Status: Acute Assessment and Plan: -Stable -pending confirmation of home medication -will give breathing tx right now while pending med rec as she was having some mild wheezing (4) Diabetes mellitus: Qualifiers: Diabetes mellitus type: type 2 Diabetes mellitus alf insulin use: with roasterman use Diabetes mellitus complication status: without complication Qualified Code(s): E11.9 - Type 2 diabetes mellitus without complications; Z79.4 - residential (current) use of insulin Code(s): E11.9 - Type 2 diabetes mellitus without complications Status: Chronic Assessment and Plan: -Started insulin sliding scale -Patient is on insulin U 100? Pending home med rec (5) TATUM (obstructive sleep apnea): Code(s): G47.33 - Obstructive sleep apnea (adult) (pediatric) Status: Chronic Assessment and Plan: -CPAP (6) CVID (common variable immunodeficiency): Code(s): D83.9 - Common variable immunodeficiency, unspecified Status: Chronic Assessment and Plan: -Stable follow-up with PCP (7) RLS (restless legs syndrome): Code(s): G25.81 - Restless legs syndrome Status: Chronic Assessment and Plan: -Pending confirmation for medication Subjective Date/time seen: 01/05/22 08:47 Interval history: 61 years old female with past medical history of COPD, hypertension, diabetes mellitus, obstructive sleep apnea, and anxiety, admitted for SBO. Pt continues to have 8/10 diffuse abdominal pain and bloating. No N/V since NG was placed last night. She c/o wheezing and mild sob bc she has not had her inhalers yet. No chest pain or LE edema. Review of Systems Review of Systems: All systems reviewed & are unremarkable except as noted in HPI and below Exam Narrative: General: No acute distress, non toxic appearing, Eyes: PERRL, no scleral icterus HEENT: NCAT, external ears normal, MMM Respiratory: No respiratory distress, scattered expiratory wheezes, breathing non labored Cardiovascular: RRR, no murmur Abdominal: mild distension, mild ttp BUQ, no rebound or guarding, hypoactive bowel sounds Musculoskeletal: Moves all 4 extremities, no edema Neurological: A/Ox3, speech normal, no facial asymmetry Skin: Warm, dry, no rashes Psychiatric: Normal affect, normal mood Objective Data Vital Signs Vital Signs: Vital Signs - 24 hr 01/04/22 15:52 01/04/22 19:50 01/04/22 21:42 Temperature 97.6 F Pulse Rate 97 83 72 Respiratory Rate 15 18 18 Blood Pressure 142/103 H 138/66 161/90 H Pulse Oximetry 95 92 94 01/04/22 22:13 01/04/22 22:25 01/05/22 00:00 Temperature 97.6 F 97.4 F L Pulse Rate 82 87 90 Respiratory Rate 16 16 16 Blood Pressure 160/86 H 131/59 L 136/54 L Pulse Oximetry 95 91 90 01/05/22 04:00 01/05/22 05:36 01/05/22 08:26 Temperature 96.9 F L 96.9 F L Pulse Rate 94 94 Respiratory Rate 16 16 Blood Pressure 150/68 H 150/68 H Pulse Oximetry 92 92 98 Intake/Output Intake/Output: Intake & Output 01/02/22 01/03/22 01/04/22 01/05/22 23:59 23:59 23:59 23:59 Intake Total 200
[2022-01-05] MEDS: IPRATROPIUM BR 0.02% INH SOLN 0.5 MG/2.5 ML VIAL INHALATION (08:58)
[2022-01-05] MEDS: ALBUTEROL SULFATE NEB 2.5 MG/3 ML INH 1.25 MG INHALATION (08:58)
[2022-01-05] MEDS: SODIUM CHLORIDE 0.9% IV 1,000 ML 150 ML IV CONT ×2 (09:00→15:26)
[2022-01-05 11:02] LABS: Basophils Percent Auto 0.5 % (0.2-1.2); Eosinophils Absolute Auto 0.1 K/mm3 (0-0.3); Eosinophils Percent Auto 2.3 % (0-4.4); Immature Granulocyte Absolute 0.02 K/mm3 (0.00-0.031); Immature Granulocyte Percent A 0.3 % (0-0.5); Lymphocytes Absolute Auto 1.33 K/mm3 (0.9-3.2); Lymphocytes Percent Auto 23.1 % (18.3-44.2); Mean Corpuscular HGB Conc 32.6 g/dl (32-36); Mean Corpuscular Hemoglobin 27.8 pg (26-34); Mean Corpuscular Volume 85.3 fl (80-100); Mean Platelet Volume 10.2 fl (7.4-10.4); Monocytes Absolute Auto 0.5 K/mm3 (0.1-0.6); Neutrophils Absolute Auto 3.8 K/mm3 (1.3-6.7); Neutrophils Percent Auto 65.8 % (45.5-73.1); Platelet Count Result 249 k/mm3 (150-375); Red Blood Count 5.39 M/mm3 (4.2-5.4); Red Cell Distribution Width 13.1 % (11.5-14.5); White Blood Count 5.8 K/mm3 (4.5-10.0)
[2022-01-05 11:23] LABS: Glucose Point of Care 107 mg/dl (65-105)
--- NOTE | 2022-01-05 14:49 | PC.NURSE ---
On 01/05/22, the student, [ Ivanna Veliz], provided care and completed [facility] documentation on this patient. I have reviewed the student's documentation and agree with the findings.
--- NOTE | 2022-01-05 15:21 | PM.CNGS ---
Assessment and Plan Assessment and plan (1) SBO (small bowel obstruction): Code(s): K56.609 - Unspecified intestinal obstruction, unspecified as to partial versus complete obstruction Status: Acute Assessment and Plan: Patient improving with NG suction, bowel rest, IV fluids and p.r.n. analgesics. Will continue to follow with serial exam, flat plate abdomen, labs. I explained to the patient that often these small intestinal obstructions will resolve with nonsurgical methods but surgery can be required. I discussed usual length of stay both with only medical therapy as well as if surgery is needed to be done. All questions were answered. I will follow along with you. Thank you for asking me to see this patient in consultation. (2) Acute hyponatremia: Code(s): E87.1 - Hypo-osmolality and hyponatremia Status: Acute Assessment and Plan: On 150 cc/hour normal saline and following serum sodiums q.6 hours. Will likely need some potassium as more NG output occurs (3) Diabetes mellitus: Qualifiers: Diabetes mellitus type: type 2 Diabetes mellitus adjunct faculty for medical terminology insulin use: with intermediate use Diabetes mellitus complication status: without complication Qualified Code(s): E11.9 - Type 2 diabetes mellitus without complications; Z79.4 - senior living (current) use of insulin Code(s): E11.9 - Type 2 diabetes mellitus without complications Status: Chronic Assessment and Plan: Insulin dependent. Blood sugars satisfactory for my purposes (4) COPD (chronic obstructive pulmonary disease): Qualifiers: COPD type: COPD with acute exacerbation Qualified Code(s): J44.1 - Chronic obstructive pulmonary disease with (acute) exacerbation Code(s): J44.9 - Chronic obstructive pulmonary disease, unspecified Status: Chronic Assessment and Plan: No shortness of breath at present. Could pose a problem if surgery is necessary. Increases surgical risks. (5) Tobacco dependence: Code(s): F17.200 - Nicotine dependence, unspecified, uncomplicated Status: Chronic Assessment and Plan: Advised to quit. Patient tells me she is down to 2 packs of cigarettes a week. She is however a very long time smoker. Increases surgical risks as well. History of Present Illness Consult details Consult date: 01/05/22 Reason for consult: abdominal pain (Small bowel obstruction) Requesting physician: Emeil Palomino MD Narrative: Patient is a 61-year-old woman with insulin-dependent diabetes COPD, chronic smoker, obstructive sleep apnea and has had multiple previous abdominal surgeries. She had 2 C sections, a left oophorectomy, OBDULIO right SO, cholecystectomy and possibly an appendectomy. She started having abdominal pain 10 days ago. This was accompanied by nausea and frequent vomiting. She also noted that her abdomen was much more distended. She came to the emergency room and was evaluated. She was noted to have a very distended abdomen. Her white blood cell count was normal she was not anemic. Chemistries show her to be hyponatremic and hypochloremic. Her creatinine was normal. Her blood sugars were acceptable, 150 or below. She had a CT scan of the abdomen and pelvis which showed a small bowel obstruction with evidence of a transition point in the right lower quadrant. A nasogastric tube was placed and she was admitted. Through the night, she noted that her pain and distention have improved somewhat although they have not gone away. Her I and O shows 600 cc per the NG tube since it was placed yesterday up until 7:00 a.m. this morning. As I came to see her actually, her NG tube had just come out and nursing was in the process of replacing it. She definitely feels better than she did when she came to the emergency room last night. Review of Systems Review of Systems: All systems reviewed & are unremarkable except as noted in HPI and below (HPI or those items noted below) C
[2022-01-05] MEDS: NICOTINE (*PBKC) 14 MG PATCH 1 PATCH TRANSDERM (15:26)
[2022-01-05 16:36] LABS: Glucose Point of Care 93 mg/dl (65-105)
[2022-01-05] MEDS: FLUTICASONE/SALMETEROL 115-21 MCG INHALER 1 PUFF 2 PUFF INHALATION (20:03)
--- NOTE | 2022-01-05 20:12 | PCRCNOTE ---
Pt wears CPAP at home but does not want to use one here at this time due to an NG tube. No machine in room.
[2022-01-05 21:34] LABS: Glucose Point of Care 75 mg/dl (65-105)
[2022-01-05 21:35] LABS: Sodium 132 mmol/L (137-145)
[2022-01-05] MEDS: ENOXAPARIN 40 MG/0.4 ML SYRINGE SUB-Q (21:50)
[2022-01-05] MEDS: DEXTROSE 5%/0.9% SOD CHL 1,000 ML 150 ML IV CONT (21:52)
[2022-01-05 23:31] LABS: Glucose Point of Care 100 mg/dl (65-105)
[2022-01-06] VITALS (8 sets, daily range): BP systolic 122–138; BP diastolic 48–55; PULSE 87–102; RESP 16–18; TEMP 36.6–36.8; O2SAT 87–95
[2022-01-06] MEDS: MORPHINE SULFATE (*CRX) 4 MG/ML INJ IV PUSH ×7 (01:41→21:22)
[2022-01-06] MEDS: DEXTROSE 5%/0.9% SOD CHL 1,000 ML 150 ML IV CONT (05:43)
[2022-01-06 06:21] LABS: Glucose Point of Care 122 mg/dl (65-105)
[2022-01-06 06:30] LABS: Alanine Aminotransferase 21 U/L (4-35); Albumin Level 2.9 g/dL (3.5-5.1); Alkaline Phosphatase 78 U/L (38-126); Anion Gap 6 mmol/L (8-16); Aspartate Amino Transferase 32 U/L (14-36); Bilirubin,Total 0.2 mg/dL (0.2-1.3); Blood Urea Nitrogen 3 mg/dL (7-17); Calcium 7.4 mg/dL (8.4-10.2); Carbon Dioxide 27 mmol/L (22-30); Chloride 99 mmol/L (98-107); Estimated CRCL calculation 147 ml/min; Estimated Glomerular Filt Rate > 60; Glucose 125 mg/dL (65-110); Potassium 2.9 mmol/L (3.4-5.0); Sodium 132 mmol/L (137-145)
[2022-01-06 06:35] LABS: Hematocrit 39.2 % (37.0-47.0); Hemoglobin 13.2 g/dL (12.0-15.0); Mean Corpuscular HGB Conc 33.7 g/dl (32-36); Mean Corpuscular Volume 83.1 fl (80-100); Mean Platelet Volume 9.7 fl (7.4-10.4); Platelet Count Result 231 k/mm3 (150-375); Red Blood Count 4.72 M/mm3 (4.2-5.4); Red Cell Distribution Width 12.8 % (11.5-14.5); White Blood Count 6.2 K/mm3 (4.5-10.0)
[2022-01-06] MEDS: FLUTICASONE/SALMETEROL 115-21 MCG INHALER 1 PUFF 2 PUFF INHALATION ×2 (07:57→20:30)
[2022-01-06] MEDS: UMECLIDINIUM BROMIDE 62.5 MCG ELLIPTA 1 PUFF INHALATION (07:58)
[2022-01-06] MEDS: POTASSIUM CHLORIDE INJ 40 MEQ in SODIUM CHLORIDE 0.9% IV 500 ML 130 MEQ IVPB (08:15)
[2022-01-06] MEDS: FLUTICASONE PROPIONATE 0.05% NA SPR 16 GM BTL (*BKC) 1 SPRAY NASAL (08:16)
[2022-01-06] MEDS: NICOTINE (*PBKC) 14 MG PATCH 1 PATCH TRANSDERM (08:16)
[2022-01-06] MEDS: KCL 40 MEQ/0.9% SOD CHL 1,000 ML 100 ML IV CONT ×2 (08:19→18:37)
[2022-01-06 08:23] LABS: Glucose Point of Care 155 mg/dl (65-105)
--- NOTE | 2022-01-06 08:39 | PM.IMPN ---
Progress Note: A&P Assessment and Plan (1) SBO (small bowel obstruction): Code(s): K56.609 - Unspecified intestinal obstruction, unspecified as to partial versus complete obstruction Status: Acute Assessment and Plan: -IV pain medication -IV Zofran -IV fluid -NPO -Nasogastric tube placed - continue -Surgery consult -continue NG tube at this time, hopefully avoid surgery (2) Acute hyponatremia: Code(s): E87.1 - Hypo-osmolality and hyponatremia Status: Acute Assessment and Plan: -Probably related to dehydration -IV fluid -Improving (3) COPD (chronic obstructive pulmonary disease): Qualifiers: COPD type: COPD with acute exacerbation Qualified Code(s): J44.1 - Chronic obstructive pulmonary disease with (acute) exacerbation Code(s): J44.9 - Chronic obstructive pulmonary disease, unspecified Status: Chronic Assessment and Plan: -Stable -continue home medication -nebs prn, was having some wheezing (4) Diabetes mellitus: Qualifiers: Diabetes mellitus type: type 2 Diabetes 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 insulin use: with 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 use Diabetes mellitus complication status: without complication Qualified Code(s): E11.9 - Type 2 diabetes mellitus without complications; Z79.4 - ocean transportation intermediary (current) use of insulin Code(s): E11.9 - Type 2 diabetes mellitus without complications Status: Chronic Assessment and Plan: -Started insulin sliding scale (5) TATUM (obstructive sleep apnea): Code(s): G47.33 - Obstructive sleep apnea (adult) (pediatric) Status: Chronic Assessment and Plan: -CPAP (6) CVID (common variable immunodeficiency): Code(s): D83.9 - Common variable immunodeficiency, unspecified Status: Chronic Assessment and Plan: -Stable follow-up with PCP (7) RLS (restless legs syndrome): Code(s): G25.81 - Restless legs syndrome Status: Chronic Assessment and Plan: -home meds Subjective Date/time seen: 01/06/22 08:39 Interval history: 61 years old female with past medical history of COPD, hypertension, diabetes mellitus, obstructive sleep apnea, and anxiety, admitted for SBO. Pt continues to have mid upper abd pain but states it is improving. Still feels bloated. No N/V. Has quite a bit of discomfort from the NG tube. No BM. No cp/sob. Review of Systems Review of Systems: All systems reviewed & are unremarkable except as noted in HPI and below Exam Narrative: General: No acute distress, non toxic appearing Eyes: PERRL, no scleral icterus HEENT: NCAT, external ears normal, MMM Respiratory: No respiratory distress, no wheezes, breathing non labored, lungs CTA bilaterally Cardiovascular: RRR, no murmur Abdominal: mild distension, mild ttp BUQ, no rebound or guarding, bowel sounds present Musculoskeletal: Moves all 4 extremities, no edema Neurological: A/Ox3, speech normal, no facial asymmetry Skin: Warm, dry, no rashes Psychiatric: Normal affect, normal mood Objective Data Vital Signs Vital Signs: Vital Signs - 24 hr 01/05/22 08:59 01/05/22 09:00 01/05/22 09:10 Temperature 96.9 F L Pulse Rate 94 104 H 90 Respiratory Rate 16 18 16 Blood Pressure 150/72 H Pulse Oximetry 94 01/05/22 13:30 01/05/22 17:47 01/05/22 20:00 Temperature 97.8 F 97.3 F L 98.1 F Pulse Rate 78 79 81 Respiratory Rate 20 20 18 Blood Pressure 128/63 136/61 122/44 L Pulse Oximetry 92 92 92 01/05/22 20:03 01/05/22 23:49 01/06/22 03:57 Temperature 97.6 F 98.2 F Pulse Rate 83 90 87 Respiratory Rate 18 18 Blood Pressure 149/44 H 133/48 L Pulse Oximetry 92 98 91 01/06/22 07:58 Temperature Pulse Rate Respiratory Rate Blood Pressure Pulse Oximetry 95 Intake/Output Intake/Output: Intake & Output 01/03/22 01/04/22 01/05/22 01/06/22 23:59 23:59 23:59 23:59 Intake Total 1999 1999 999 Output T
--- NOTE | 2022-01-06 08:50 | PM.PNGS ---
Progress Note: A&P Assessment and Plan (1) SBO (small bowel obstruction): Code(s): K56.609 - Unspecified intestinal obstruction, unspecified as to partial versus complete obstruction Status: Acute Assessment and Plan: Improving but hypoactive bowel sounds and still distended abdomen with dilated small bowel loops. I do not think bowel function has returned or the obstruction has resolved as yet. Continue NG suction, IV fluids, serial exams, plain films and labs. Hopefully get small bowel series tomorrow. (2) Acute hyponatremia: Code(s): E87.1 - Hypo-osmolality and hyponatremia Status: Acute Assessment and Plan: Improved. 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 insulin use: with correction use Diabetes mellitus complication status: without complication Qualified Code(s): E11.9 - Type 2 diabetes mellitus without complications; Z79.4 - group home (current) use of insulin Code(s): E11.9 - Type 2 diabetes mellitus without complications Status: Chronic Assessment and Plan: Blood sugars acceptable (4) COPD (chronic obstructive pulmonary disease): Qualifiers: COPD type: COPD with acute exacerbation Qualified Code(s): J44.1 - Chronic obstructive pulmonary disease with (acute) exacerbation Code(s): J44.9 - Chronic obstructive pulmonary disease, unspecified Status: Chronic (5) Tobacco dependence: Code(s): F17.200 - Nicotine dependence, unspecified, uncomplicated Status: Chronic Subjective Subjective Date/Time Seen: 01/06/22 08:50 Patient reports: feels better, pain is less, flatus, no bowel movement and afebrile Review of Systems Review of Systems: All systems reviewed & are unremarkable except as noted in HPI and below (HPI and those items noted below.) Constitutional: Constitutional: Denies body ache(s), Denies chills, Reports difficulty sleeping, Denies headache(s) and Denies night sweats Cardiovascular: Cardiovascular: Denies chest pain, Denies diaphoresis, Denies dyspnea and Denies paroxysmal nocturnal dyspnea Respiratory: Respiratory: Denies chest congestion, Denies cough and Denies dyspnea Gastrointestinal: Gastrointestinal: Reports abdominal pain (Nearly gone), Reports constipation, Denies heartburn, Denies nausea and Denies vomiting Integumentary/Breasts: Skin/Breast: Denies lesions and Denies rash Exam Const: General: comfortable and no acute distress; No confusion Orientation/consciousness: patient oriented x3 and No confusion Resp: Effort & Inspection: normal respiratory effort Auscultation: clear to auscultation bilaterally Cardio: Rate: regular rate Rhythm: regular rhythm GI: Inspection: distended and obesity GI Palp: Yes Soft to palpation, Yes Tenderness to palpation present (GI) (Much less tender), No Guarding due to palpation present (GI), No Hernia present, No Palpable mass present and No Rebound tenderness present Auscultation: Hypoactive bowel sounds present Neuro: General: patient oriented x3, no focal motor deficits and No confusion Extrem: General: no calf tenderness and no edema Psych: Affect: normal affect Insight: Good insight present (Psych) Judgement: Good judgement present (Psych) Objective Data Vital Signs Vital Signs: Vital Signs - 24 hr 01/05/22 08:59 01/05/22 09:00 01/05/22 09:10 Temperature 36.1 C L Pulse Rate 94 104 H 90 Respiratory Rate 16 18 16 Blood Pressure 150/72 H Pulse Oximetry 94 01/05/22 13:30 01/05/22 17:47 01/05/22 20:00 Temperature 36.6 C 36.3 C L 36.7 C Pulse Rate 78 79 81 Respiratory Rate 20 20 18 Blood Pressure 128/63 136/61 122/44 L Pulse Oximetry 92 92 92 01/05/22 20:03 01/05/22 23:49 01/06/22 03:57 Temperature 36.4 C 36.8 C Pulse Rate 83 90 87 Respiratory Rate 18 18 Blood Pressure 149/44 H 133/48 L Pulse Oximetry 92 98 91 01/06/22 07:58 Temperature
[2022-01-06 11:49] LABS: Glucose Point of Care 128 mg/dl (65-105)
[2022-01-06 13:22] LABS: Anion Gap 4 mmol/L (8-16); Blood Urea Nitrogen 3 mg/dL (7-17); Calcium 7.5 mg/dL (8.4-10.2); Carbon Dioxide 33 mmol/L (22-30); Chloride 96 mmol/L (98-107); Estimated CRCL calculation 147 ml/min; Estimated Glomerular Filt Rate > 60; Glucose 118 mg/dL (65-110); Potassium 3.4 mmol/L (3.4-5.0); Sodium 133 mmol/L (137-145)
[2022-01-06 16:50] LABS: Glucose Point of Care 115 mg/dl (65-105)
[2022-01-06 18:37] LABS: EDCOVIDSCREEN Negative (Negative)
[2022-01-06 18:42] LABS: Influenza Control Positive
[2022-01-06] MEDS: ENOXAPARIN 40 MG/0.4 ML SYRINGE SUB-Q (21:22)
[2022-01-06] MEDS: ONDANSETRON INJ 4 MG/2 ML VIAL IV PUSH (21:31)
[2022-01-06 23:31] LABS: Glucose Point of Care 107 mg/dl (65-105)
[2022-01-07] VITALS (15 sets, daily range): BP systolic 113–141; BP diastolic 55–73; PULSE 80–117; RESP 18–24; TEMP 35.5–36.3; O2SAT 86–100
[2022-01-07] MEDS: MORPHINE SULFATE (*CRX) 4 MG/ML INJ IV PUSH ×3 (01:15→10:39)
[2022-01-07 05:59] LABS: Glucose Point of Care 104 mg/dl (65-105)
[2022-01-07] MEDS: KCL 40 MEQ/0.9% SOD CHL 1,000 ML 100 ML IV CONT (06:20)
[2022-01-07 07:21] LABS: Hematocrit 41.7 % (37.0-47.0); Hemoglobin 13.7 g/dL (12.0-15.0); Mean Corpuscular HGB Conc 32.9 g/dl (32-36); Mean Corpuscular Hemoglobin 27.9 pg (26-34); Mean Corpuscular Volume 84.9 fl (80-100); Mean Platelet Volume 9.5 fl (7.4-10.4); Platelet Count Result 207 k/mm3 (150-375); Red Blood Count 4.91 M/mm3 (4.2-5.4); Red Cell Distribution Width 13.2 % (11.5-14.5)
[2022-01-07 07:36] LABS: Alanine Aminotransferase 17 U/L (4-35); Albumin Level 3.1 g/dL (3.5-5.1); Alkaline Phosphatase 77 U/L (38-126); Anion Gap 7 mmol/L (8-16); Aspartate Amino Transferase 28 U/L (14-36); Bilirubin,Total 0.4 mg/dL (0.2-1.3); Blood Urea Nitrogen 6 mg/dL (7-17); Calcium 7.4 mg/dL (8.4-10.2); Carbon Dioxide 34 mmol/L (22-30); Chloride 97 mmol/L (98-107); Estimated CRCL calculation 147 ml/min; Estimated Glomerular Filt Rate > 60; Glucose 118 mg/dL (65-110); Potassium 3.5 mmol/L (3.4-5.0); Sodium 138 mmol/L (137-145)
[2022-01-07 07:59] LABS: Glucose Point of Care 125 mg/dl (65-105)
--- NOTE | 2022-01-07 10:10 | PM.IMPN ---
Progress Note: A&P Assessment and Plan (1) SBO (small bowel obstruction): Code(s): K56.609 - Unspecified intestinal obstruction, unspecified as to partial versus complete obstruction Status: Acute Assessment and Plan: -IV pain medication -IV Zofran -IV fluid -NPO -Surgery consult -continue NG tube at this time, hopefully avoid surgery -small bowel follow through today (2) Pneumonia: Code(s): J18.9 - Pneumonia, unspecified organism Status: Acute Assessment and Plan: -pt developed oxygen requirement overnight 01/06 and became tachypneic. -Ordered stat CTA which showed right middle lobe collapse and right lower lobe pneumonia -changed nebs to scheduled q4 -added IV rocephin and azithromycin -pulm consulted, discussed w/ Dr. Nicole who agrees with current tx plan (3) Lung collapse: Code(s): J98.19 - Other pulmonary collapse Status: Acute Assessment and Plan: -as above -pulm following (4) RLS (restless legs syndrome): Code(s): G25.81 - Restless legs syndrome Status: Chronic Assessment and Plan: -home meds (5) Acute hyponatremia: Code(s): E87.1 - Hypo-osmolality and hyponatremia Status: Acute Assessment and Plan: -Probably related to dehydration -IV fluid -Improving (6) COPD (chronic obstructive pulmonary disease): Qualifiers: COPD type: COPD with acute exacerbation Qualified Code(s): J44.1 - Chronic obstructive pulmonary disease with (acute) exacerbation Code(s): J44.9 - Chronic obstructive pulmonary disease, unspecified Status: Chronic Assessment and Plan: -continue home medication -nebs prn, was having some wheezing (7) Diabetes mellitus: Qualifiers: Diabetes mellitus complication status: without complication Diabetes mellitus skilled nursing insulin use: with 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 use Diabetes mellitus type: type 2 Qualified Code(s): E11.9 - Type 2 diabetes mellitus without complications; Z79.4 - ocean transportation intermediary (current) use of insulin Code(s): E11.9 - Type 2 diabetes mellitus without complications Status: Chronic Assessment and Plan: -insulin sliding scale (8) TATUM (obstructive sleep apnea): Code(s): G47.33 - Obstructive sleep apnea (adult) (pediatric) Status: Chronic Assessment and Plan: -CPAP (9) CVID (common variable immunodeficiency): Code(s): D83.9 - Common variable immunodeficiency, unspecified Status: Chronic Assessment and Plan: -Stable follow-up with PCP Subjective Date/time seen: 01/07/22 10:11 Interval history: 61 years old female with past medical history of COPD, hypertension, diabetes mellitus, obstructive sleep apnea, and anxiety, admitted for SBO. Pt having abdominal pain and distension. says she is passing gas but no BM. no N/V. not tolerating NG tube well, wants it removed. Pt was noted to be hypoxic at 86% on 4L so stat CTA showed pneumonia and R middle lobe collapse. She denies sob, cp, cough. She states she didn't know why her oxygen requirement increased. Review of Systems Review of Systems: All systems reviewed & are unremarkable except as noted in HPI and below Exam Narrative: General: No acute distress, non toxic appearing Eyes: PERRL, no scleral icterus HEENT: NCAT, external ears normal, MMM Respiratory: No respiratory distress, rhonchi noted right lower lobe, no wheezing, on 4L NC Cardiovascular: RRR, no murmur Abdominal: mild distension, mild ttp diffusely, no rebound or guarding, hypoactive bowel sounds Musculoskeletal: Moves all 4 extremities, no edema Neurological: A/Ox3, speech normal, no facial asymmetry Skin: Warm, dry, no rashes Psychiatric: Normal affect, normal mood Objective Data Vital Signs Vital Signs: Vital Signs - 24 hr 01/06/22 14:00 01/06/22 16:53 01/06/22 16:55 Temperature 98.0 F Pul
[2022-01-07] MEDS: FLUTICASONE PROPIONATE 0.05% NA SPR 16 GM BTL (*BKC) 1 SPRAY NASAL (10:17)
[2022-01-07] MEDS: NICOTINE (*PBKC) 14 MG PATCH 1 PATCH TRANSDERM (10:18)
--- NOTE | 2022-01-07 10:39 | PM.CNPUL ---
Assessment and Plan Assessment and plan (1) Pneumonia: Code(s): J18.9 - Pneumonia, unspecified organism Status: Acute Assessment and Plan: Patient has increased phlegm production, leukocytosis, new right middle lobe collapse with right lower lobe infiltrate on her CT scan with recent vomiting from small-bowel aspiration. she had no right middle lobe collapse and right lower lobe infiltrate on CT scan of the abdomen on 01/04. Patient is day 3 in this hospital and she has common variable immunodeficiency with her last home IVIG given on 01/03/2022. I will send sputum for Gram stain and culture. I recommend broadening her antibiotics given her hospitalization and common variable immunodeficiency to vancomycin, Zosyn and azithromycin. She has right middle lobe collapse that is new since 01/04, she tells me that she has been laying continuously on her right side and she has also been off her auto Pap due to her NG tube in place. Is also difficult for her to cough given the NG tube. I suspect this is mucus retention and or micro atelectasis. At this time I will continue albuterol 2.5 mg q.4 hours, ipratropium 0.5 mg q.4 hours and I spoken with respiratory therapy who will assist in incentive spirometry and a Cornet valve to aid in expectoration. Discussed with Alina Santiago Will follow with you (2) COPD (chronic obstructive pulmonary disease): Qualifiers: COPD type: COPD with acute exacerbation Qualified Code(s): J44.1 - Chronic obstructive pulmonary disease with (acute) exacerbation Code(s): J44.9 - Chronic obstructive pulmonary disease, unspecified Status: Chronic Assessment and Plan: At this time I will continue albuterol 2.5 mg q.4 hours, ipratropium 0.5 mg q.4 hours, Budesonide 500 mcg nebulized q.12 hours. She is unable to take Daliresp currently because of her small bowel obstruction. There is no wheezing and at this time I see no need for systemic steroids. Continue nasal cannula oxygen with goal saturations 90-94%. (3) TATUM (obstructive sleep apnea): Code(s): G47.33 - Obstructive sleep apnea (adult) (pediatric) Status: Chronic Assessment and Plan: Patient is on auto PAP 5-15 at home. On 01/09 I will attempt to obtain a download to assess her compliance. Patient states she is unable to wear any PAP device right now because the NG tube is very sore and she would not be able to tolerate the mask. History of Present Illness History of Present Illness Consult date: 01/07/22 Chief complaint: Small bowel obstruction/hyponatremia Narrative: 61-year-old female with a history of hypertension, diabetes, anxiety and asthma COPD overlap syndrome, TATUM on auto PAP 5-15, restless legs syndrome, common variable in pneumo deficiency receives monthly injections At home prescribed with a doctor from [place] ( last home injection was on 01/03/2022). patient was last seen in the pulmonary clinic on a leak 05/25/2021 and at that time she Had low-grade fever, worsening cough, change in phlegm and had a CAT score of 26, smoking 1/4 pack per day and was treated for COPD exacerbation with prednisone and a chest x-ray was obtained that demonstrated no acute disease. PFTs 6 minutes walk and low-dose CT scan were ordered but never completed. Smoking cessation counseling was performed. She was continued on Symbicort, Spiriva Handy haler, Daliresp, Flonase, [id number] anti a histamine. at baseline patient has 1/2 block dyspnea on exertion, with an M MRC grade of 3. She states that her last prednisone burst was given 1-2 months ago and that she has improved on the Daliresp. Patient smoked tobacco from age 18 to current and currently she tells me she is on 1/2 pack of cigarettes. Patient vapor for 6 months the last of which was 2 months ago. 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
[2022-01-07] MEDS: ALBUTEROL SULFATE NEB 2.5 MG/0.5 ML INH 5 MG INHALATION (11:27)
[2022-01-07] MEDS: IPRATROPIUM BR 0.02% INH SOLN 0.5 MG/2.5 ML VIAL INHALATION ×3 (11:27→23:49)
[2022-01-07 11:57] LABS: Glucose Point of Care 165 mg/dl (65-105)
--- NOTE | 2022-01-07 13:35 | PM.PNGS ---
Progress Note: A&P Assessment and Plan (1) SBO (small bowel obstruction): Code(s): K56.609 - Unspecified intestinal obstruction, unspecified as to partial versus complete obstruction Status: Acute Assessment and Plan: Patient currently undergoing small-bowel follow-through. I have reviewed the images so far but I am waiting on final imaging and radiologist interpretation. Will likely have to place patient back to suction soon due to symptoms of the bowel obstruction returning. Discussed that if small-bowel follow-through still shows complete obstruction, then she will likely need exploratory laparotomy with possible small bowel resection. (2) Protein calorie malnutrition: Qualifiers: Protein-calorie malnutrition severity: unspecified severity Qualified Code(s): E46 - Unspecified protein-calorie malnutrition Code(s): E46 - Unspecified protein-calorie malnutrition Status: Acute Assessment and Plan: Will plan to place PICC line today since patient has poor IV access. Start TPN once PICC is placed. She has already been over 1 week without any significant nutrition between her symptoms she was having at home and being at the hospital. Be anticipating patient will likely need nutrition for at least a few more days if she is to require surgery. (3) Pneumonia: Code(s): J18.9 - Pneumonia, unspecified organism Status: Acute (4) COPD (chronic obstructive pulmonary disease): Qualifiers: COPD type: COPD with acute exacerbation Qualified Code(s): J44.1 - Chronic obstructive pulmonary disease with (acute) exacerbation Code(s): J44.9 - Chronic obstructive pulmonary disease, unspecified Status: Chronic (5) Diabetes mellitus: Qualifiers: Diabetes mellitus type: type 2 Diabetes mellitus long term acute care registered nurse insulin use: with long term acute care registered nurse use Diabetes mellitus complication status: without complication Qualified Code(s): E11.9 - Type 2 diabetes mellitus without complications; Z79.4 - USP (current) use of insulin Code(s): E11.9 - Type 2 diabetes mellitus without complications Status: Chronic (6) TATUM (obstructive sleep apnea): Code(s): G47.33 - Obstructive sleep apnea (adult) (pediatric) Status: Chronic (7) CVID (common variable immunodeficiency): Code(s): D83.9 - Common variable immunodeficiency, unspecified Status: Chronic Subjective Subjective Date/Time Seen: 01/07/22 13:35 Interval history: Patient still having bloating and discomfort with NG tube clamped for small-bowel follow-through. Passing a little bit of flatus, but no BM. Exam GI: Inspection: distended and obesity GI Palp: Yes Tenderness to palpation present (GI) (Mild generalized), No Guarding due to palpation present (GI) and No Rebound tenderness present Auscultation: Hypoactive bowel sounds present Objective Data Vital Signs Vital Signs: Vital Signs - 24 hr 01/06/22 14:00 01/06/22 16:53 01/06/22 16:55 Temperature 36.7 C Pulse Rate 102 H Respiratory Rate 16 Blood Pressure 122/52 L Pulse Oximetry 93 87 L 87 L 01/06/22 17:08 01/06/22 20:33 01/06/22 22:00 Temperature 36.6 C Pulse Rate 90 90 Respiratory Rate 18 Blood Pressure 138/55 L Pulse Oximetry 93 95 93 01/07/22 00:00 01/07/22 04:00 01/07/22 08:00 Temperature 36.3 C L 35.9 C L 35.5 C L Pulse Rate 92 98 101 H Respiratory Rate 18 20 22 H Blood Pressure 139/56 L 121/59 L 113/55 L Pulse Oximetry 97 94 86 L 01/07/22 08:10 01/07/22 11:29 01/07/22 11:41 Temperature Pulse Rate 83 80 Respiratory Rate 18 18 Blood Pressure Pulse Oximetry 92 91 Intake/Output Intake/Output: Intake & Output 01/04/22 01/05/22 01/06/22 01/07/22 23:59 23:59 23:59 23:59 Intake Total 1999 1999 2720 1000 Output Total 2600 3700 1200 Balance 1999 -600 -980 -200 Meds/Results Medications: Active Medications Generic Name Dose Route Start Last Admin Trade Nam
[2022-01-07 14:28] LABS: Partial Thromboplastin Time 29.2 SECONDS (22.3-36.8)
[2022-01-07 14:29] LABS: Magnesium 0.8 mg/dL (1.6-2.3)
[2022-01-07 14:44] LABS: Transferrin 185 mg/dL (206-381)
[2022-01-07] MEDS: HYDROmorphone HCL INJ (*CRX) 1 MG/ML SYR IV PUSH ×2 (15:04→17:49)
[2022-01-07] MEDS: FAT EMULSIONS IV 20% 250 ML 20.83 ML IVPB (15:15)
[2022-01-07] MEDS: AMINO ACIDS 5%/D15W/E-LYTES/CA 2,000 ML with MULTIVITAMINS-12 INJ VIAL 1 2.5 ML, MULTIV... 50 ML IV CONT (15:15)
--- NOTE | 2022-01-07 16:47 | WPDANESEPP ---
Anes - Eval Pre Procedure Date/Time: 01/07/22 16:47 Pre Op Diagnosis: Small bowel obstruction/hyponatremia Patient Data Age: 61 Gender: F Height: 1.6 m Weight: 70.4 kg Last Vital Signs Temp 96.5 F L 01/07/22 12:00 Pulse 117 H 01/07/22 12:00 Resp 22 H 01/07/22 12:00 BP 139/70 01/07/22 12:00 Pulse Ox 86 L 01/07/22 12:00 Allergies Allergy/AdvReac Type Severity Reaction Status Date / Time Sulfa (Sulfonamide Allergy Unknown unknown Verified 05/25/21 09:55 Antibiotics) sulfamethoxazole Allergy Unknown unknown Verified 05/25/21 09:55 Home Medications Medication Instructions Recorded Confirmed Type atorvastatin 40 mg tablet 40 mg PO DAILY 09/18/19 01/05/22 History famotidine 40 mg tablet 40 mg PO DAILY 09/18/19 01/05/22 History fenofibrate 160 mg tablet 160 mg PO DAILY 09/18/19 01/05/22 History levothyroxine 50 mcg tablet 50 mcg PO DAILY 09/18/19 01/05/22 History metoprolol tartrate 50 mg tablet 50 mg PO BID 09/18/19 01/05/22 History aspirin 81 mg tablet,delayed 81 mg PO DAILY 11/25/19 01/07/22 History release estradiol 0.5 mg PO DAILY 05/04/20 01/05/22 History furosemide 40 mg PO BID 05/04/20 01/05/22 History glipizide 5 mg PO DAILY 05/04/20 01/05/22 History insulin lispro See Rx Instructions .ROUTE .COMPLEX 05/04/20 01/05/22 History insulin syringe-needle U-100 05/04/20 01/05/22 History oxycodone-acetaminophen 10 tablet PO Q6-8H PRN 05/04/20 01/05/22 History pen needle, diabetic [BD 05/04/20 01/05/22 History Ultra-Fine Mini Pen Needle] potassium chloride 10 meq PO BID 05/04/20 01/05/22 History ropinirole 0.5 mg PO TID 05/04/20 01/05/22 History inhalational spacing device #1 each 07/14/20 01/05/22 Rx nicotine 14 mg/24 hr daily 1 patch TRANSDERMAL DAILY #14 ea 12/08/20 01/05/22 Rx transdermal patch trazodone 100 mg tablet 100 mg PO QHS 05/25/21 01/05/22 History tiotropium bromide 18 mcg capsule 1 cap INHALATION DAILY #30 cap 10/31/21 01/05/22 Rx with inhalation device fluticasone propionate 50 1 spray INTRANASAL BID #16 g 11/01/21 01/05/22 Rx mcg/actuation nasal spray,suspension Daliresp 500 mcg tablet 500 mcg PO DAILY 90 Days #90 11/03/21 01/05/22 Rx tablet NS montelukast 10 mg tablet See Rx Instructions .ROUTE 12/22/21 01/05/22 Rx .COMPLEX #30 tablet budesonide-formoterol [Symbicort] 2 inh INHALATION BID 01/05/22 01/05/22 History Laboratory Tests 01/06/22 01/06/22 01/06/22 16:42 18:10 18:10 WBC RBC Hgb Hct MCV MCH MCHC RDW Plt Count MPV APTT Sodium Potassium Chloride Carbon Dioxide Anion Gap BUN Creatinine Estim Creat Clear Calc Estimated GFR Glucose POC Capillary Glucose 115 mg/dl H mg/dl (65-105) Calcium Magnesium Transferrin Total Bilirubin AST ALT Alkaline Phosphatase Total Protein Albumin Influenza Types A,B Ag Negative (Negative) SARS-CoV-2 IgG/IgM Ag?Rapid Negative (Negative) 01/06/22 01/07/22 01/07/22 23:21 05:50 07:12 WBC RBC Hgb Hct MCV MCH MCHC RDW Plt Count MPV APTT Sodium 138 mmol/L mmol/L (137-145) Potassium 3.5 mmol/L mmol/L (3.4-5.0) Chloride 97 mmol/L L mmol/L (98-107) Carbon Dioxide 34 mmol/L H mmol/L (22-30) Anion Gap 7 mmol/L L mmol/L (8-16) BUN 6 mg/dL L mg/dL (7-17) Creatinine 0.30 mg/dL L mg/dL (0.7-1.0) Estim Creat Clear Calc 147 ml/min ml/min Estimated GFR > 60 (59 - ) Glucose 118 m
[2022-01-07 16:59] LABS: Glucose Point of Care 312 mg/dl (65-105)
--- NOTE | 2022-01-07 17:53 | PCRCNOTE ---
Window of time for administration has passed. See next scheduled administration.
[2022-01-07] MEDS: INSULIN HUMAN REGULAR (*BKC) 100 UNITS/ML SUB-Q (18:18)
[2022-01-07] MEDS: BUDESONIDE RESPULE NEB 0.5 MG/2 ML AMP INHALATION (20:04)
[2022-01-07] MEDS: ALBUTEROL SULFATE NEB 2.5 MG/0.5 ML INH INHALATION ×2 (20:04→23:49)
[2022-01-07] MEDS: CENTRAL LINE FLUSH 10 ML IV PUSH (20:43)
[2022-01-08] VITALS (25 sets, daily range): BP systolic 119–171; BP diastolic 62–89; PULSE 87–112; RESP 13–22; TEMP 36.1–36.6; O2SAT 90–99
[2022-01-08 00:04] LABS: Glucose Point of Care 260 mg/dl (65-105)
[2022-01-08] MEDS: INSULIN HUMAN REGULAR (*BKC) 100 UNITS/ML SUB-Q ×4 (00:07→23:11)
[2022-01-08] MEDS: HYDROmorphone HCL INJ (*CRX) 1 MG/ML SYR IV PUSH ×4 (01:39→22:35)
[2022-01-08] MEDS: IPRATROPIUM BR 0.02% INH SOLN 0.5 MG/2.5 ML VIAL INHALATION ×4 (03:00→20:09)
[2022-01-08] MEDS: ALBUTEROL SULFATE NEB 2.5 MG/0.5 ML INH INHALATION ×4 (03:00→20:09)
[2022-01-08 05:50] LABS: Hematocrit 39.6 % (37.0-47.0); Mean Corpuscular HGB Conc 32.8 g/dl (32-36); Mean Corpuscular Hemoglobin 28.3 pg (26-34); Mean Corpuscular Volume 86.1 fl (80-100); Mean Platelet Volume 9.7 fl (7.4-10.4); Platelet Count Result 205 k/mm3 (150-375); Red Cell Distribution Width 13.2 % (11.5-14.5)
[2022-01-08 06:03] LABS: Alanine Aminotransferase 17 U/L (4-35); Alkaline Phosphatase 67 U/L (38-126); Aspartate Amino Transferase 23 U/L (14-36); Bilirubin,Total 0.5 mg/dL (0.2-1.3); Blood Urea Nitrogen 19 mg/dL (7-17); Calcium 7.7 mg/dL (8.4-10.2); Carbon Dioxide > 40 mmol/L (22-30); Chloride 87 mmol/L (98-107); Estimated CRCL calculation 116 ml/min; Estimated Glomerular Filt Rate > 60; Glucose 310 mg/dL (65-110); Phosphorus 3.3 mg/dL (2.5-4.5); Potassium 2.8 mmol/L (3.4-5.0); Sodium 137 mmol/L (137-145); Triglycerides 111 mg/dL (<150)
[2022-01-08] MEDS: CENTRAL LINE FLUSH 10 ML IV PUSH ×2 (06:46→19:56)
[2022-01-08] MEDS: POTASSIUM CHLORIDE INJ 40 MEQ in SODIUM CHLORIDE 0.9% IV 500 ML 130 MEQ IVPB ×2 (07:03→12:21)
--- NOTE | 2022-01-08 08:04 | PM.PNGS ---
Progress Note: A&P Assessment and Plan (1) SBO (small bowel obstruction): Code(s): K56.609 - Unspecified intestinal obstruction, unspecified as to partial versus complete obstruction Status: Acute Assessment and Plan: Surgery on hold due to electrolyte abnormalities. Will plan to repeat BMP, Mag level this afternoon and either proceed with surgery this afternoon or tomorrow. Eventually will plan for Ex Lap, possible bowel resection due to persistent complete bowel obstruction. (2) Protein calorie malnutrition: Qualifiers: Protein-calorie malnutrition severity: unspecified severity Qualified Code(s): E46 - Unspecified protein-calorie malnutrition Code(s): E46 - Unspecified protein-calorie malnutrition Status: Acute Assessment and Plan: TPN started yesterday Replace electrolytes and continue to monitor (3) Pneumonia: Code(s): J18.9 - Pneumonia, unspecified organism Status: Acute (4) COPD (chronic obstructive pulmonary disease): Qualifiers: COPD type: COPD with acute exacerbation Qualified Code(s): J44.1 - Chronic obstructive pulmonary disease with (acute) exacerbation Code(s): J44.9 - Chronic obstructive pulmonary disease, unspecified Status: Chronic (5) Diabetes mellitus: Qualifiers: Diabetes mellitus type: type 2 Diabetes mellitus detention insulin use: with replenishment merchandising associate use Diabetes mellitus complication status: without complication Qualified Code(s): E11.9 - Type 2 diabetes mellitus without complications; Z79.4 - playground equipment erector (current) use of insulin Code(s): E11.9 - Type 2 diabetes mellitus without complications Status: Chronic (6) TATUM (obstructive sleep apnea): Code(s): G47.33 - Obstructive sleep apnea (adult) (pediatric) Status: Chronic (7) CVID (common variable immunodeficiency): Code(s): D83.9 - Common variable immunodeficiency, unspecified Status: Chronic Subjective Subjective Date/Time Seen: 01/08/22 08:04 Interval history: Plan was to proceed with surgery this AM, but electrolytes significantly off on AM labs and will need time to replace. Patient had significant NG output once placed back to suction yesterday after SBFT, >3000 mL in past 24 hours. She is still having some abdominal pain, but feels a little less distended. No BM. Exam GI: Inspection: distended and other (slightly less distended than yesterday) GI Palp: Yes Soft to palpation and Yes Tenderness to palpation present (GI) (minimal upper abdominal) Auscultation: Hypoactive bowel sounds present Objective Data Vital Signs Vital Signs: Vital Signs - 24 hr 01/07/22 08:10 01/07/22 11:29 01/07/22 11:41 Temperature Pulse Rate 83 80 Respiratory Rate 18 18 Blood Pressure Pulse Oximetry 92 91 01/07/22 12:00 01/07/22 12:05 01/07/22 16:00 Temperature 35.8 C L 36.1 C L Pulse Rate 117 H 101 H Respiratory Rate 22 H 24 H Blood Pressure 139/70 141/73 H Pulse Oximetry 86 L 92 100 01/07/22 20:00 01/07/22 20:06 01/07/22 20:25 Temperature 36.0 C L Pulse Rate 93 92 93 Respiratory Rate 20 18 20 Blood Pressure 137/55 L Pulse Oximetry 100 92 100 01/07/22 20:26 01/07/22 23:45 01/07/22 23:55 Temperature Pulse Rate 92 82 82 Respiratory Rate 18 18 18 Blood Pressure Pulse Oximetry 01/08/22 00:00 01/08/22 03:00 01/08/22 03:10 Temperature 36.3 C L Pulse Rate 102 H 90 90 Respiratory Rate 20 18 18 Blood Pressure 139/63 Pulse Oximetry 92 01/08/22 04:00 Temperature 36.1 C L Pulse Rate 87 Respiratory Rate 18 Blood Pressure 143/65 H Pulse Oximetry 93 Intake/Output Intake/Output: Intake & Output 01/05/22 01/06/22 01/07/22 01/08/22 23:59 23:59 23:59 23:59 Intake Total 19990 0 50 Output Total 0 3700 3900 Balance -576 -307 -1995 50 Meds/Results Medications: Active Medications Generic Name Dose Route Start Last Admin Trade Name Freq PRN R
[2022-01-08] MEDS: BUDESONIDE RESPULE NEB 0.5 MG/2 ML AMP INHALATION ×2 (08:10→20:09)
[2022-01-08 08:14] LABS: Magnesium 1.1 mg/dL (1.6-2.3)
--- NOTE | 2022-01-08 08:23 | PM.PNPUL ---
Progress Note: A&P Assessment and Plan (1) Pneumonia: Code(s): J18.9 - Pneumonia, unspecified organism Status: Acute Assessment and Plan: 01/07 Patient has increased phlegm production, leukocytosis, new right middle lobe collapse with right lower lobe infiltrate on her CT scan with recent vomiting from small-bowel aspiration. she had no right middle lobe collapse and right lower lobe infiltrate on CT scan of the abdomen on 01/04. Patient is day 3 in this hospital and she has common variable immunodeficiency with her last home IVIG given on 01/03/2022. I will send sputum for Gram stain and culture. I recommend broadening her antibiotics given her hospitalization and common variable immunodeficiency to vancomycin, Zosyn and azithromycin. She has right middle lobe collapse that is new since 01/04, she tells me that she has been laying continuously on her right side and she has also been off her auto Pap due to her NG tube in place. Is also difficult for her to cough given the NG tube. I suspect this is mucus retention and or micro atelectasis. At this time I will continue albuterol 2.5 mg q.4 hours, ipratropium 0.5 mg q.4 hours and I spoken with respiratory therapy who will assist in incentive spirometry and a Cornet valve to aid in expectoration. 01/08 the patient states that she is breathing back at her baseline. She denies any wheezing. Minimal phlegm. She has been doing the incentive spirometry and Cornet flutter valve. She is on 3 L nasal cannula saturations 93%. Her white blood cell count is improved to 8.0. She says she has minimal phlegm production. Regarding her small-bowel obstruction this is persistent and was scheduled for an exploratory laparotomy but this was canceled today due to her lack delight imbalances. TPN was started yesterday. Chest x-ray today with continued right lower lobe infiltrate consistent with collapse of the right middle lobe with no progression. plan to continue vancomycin, Zosyn and azithromycin (all started 01/07). From a pulmonary perspective patient does have asthma COPD overlap syndrome and obstructive sleep apnea and now with a right lower lobe pneumonia. Patient is breathing stable her chest x-ray is stable her white count is improved on bronchodilators and antibiotics. She has not had any wheezing this hospitalization I have discussed with the surgeon and there is no contraindication to proceeding with exploratory laparotomy. The surgery team should be aware that she has a history of obstructive sleep apnea, asthma COPD overlap syndrome and she should be monitored closely in the postoperative period for bronchospasm, apneic episodes and hypoxemia. Discussed with . Will follow with you (2) TATUM (obstructive sleep apnea): Code(s): G47.33 - Obstructive sleep apnea (adult) (pediatric) Status: Chronic Assessment and Plan: 01/07 Patient is on auto PAP 5-15 at home. On 01/09 I will attempt to obtain a download to assess her compliance. Patient states she is unable to wear any PAP device right now because the NG tube is very sore and she would not be able to tolerate the mask. 01/08 Patient has a history of obstructive sleep apnea, asthma COPD overlap syndrome and she should be monitored closely in the postoperative period for bronchospasm, apneic episodes and hypoxemia. (3) Asthma-COPD overlap syndrome: Code(s): J44.9 - Chronic obstructive pulmonary disease, unspecified Status: Acute Assessment and Plan: patient with 43 pack year tobacco history, spirometry in 2014 with an FEV1 of 1.71 L, 68% predicted, a positive methacholine challenge test, maintained on Symbicort, Spiriva and Daliresp. not on supplemental oxygen at home. 01/07 At this time I will continue albuterol 2.5 mg q.4 hours, ipratropium 0.5 mg q.4 hours, Budesonide 500 mcg nebulized q.12 hours. She is unable to take Daliresp currently because of her small b
[2022-01-08] MEDS: NICOTINE (*PBKC) 14 MG PATCH 1 PATCH TRANSDERM (08:31)
[2022-01-08] MEDS: FLUTICASONE PROPIONATE 0.05% NA SPR 16 GM BTL (*BKC) 1 SPRAY NASAL (08:31)
--- NOTE | 2022-01-08 08:42 | PM.IMPN ---
Progress Note: A&P Assessment and Plan (1) SBO (small bowel obstruction): Code(s): K56.609 - Unspecified intestinal obstruction, unspecified as to partial versus complete obstruction Status: Acute Assessment and Plan: -IV pain medication, antiemetics, IVF -NPO -Surgery consult -continue NG tube -started on TPN 01/07/22 -scheduled for surgery this AM but was placed on hold due to electrolyte abnormality -plan is to recheck BMP, mag this afternoon, surgery later today or tomorrow (2) Hypomagnesemia: Code(s): E83.42 - Hypomagnesemia Status: Acute Assessment and Plan: -1.1, replace and recheck mag this afternoon (3) Hypokalemia: Code(s): E87.6 - Hypokalemia Status: Acute Assessment and Plan: -2.8, replace and recheck BMP this afternoon (4) Pneumonia: Code(s): J18.9 - Pneumonia, unspecified organism Status: Acute Assessment and Plan: -pt developed oxygen requirement overnight 01/06 and became tachypneic. -Ordered stat CTA which showed right middle lobe collapse and right lower lobe pneumonia -changed nebs to scheduled q4 -added IV rocephin and azithromycin, this was changed to azithro/vanc/zosyn to cover for HAP -pulm consulted, Dr. Nicole is following. He has also had discussions with Dr. Marie general surgery regarding proceeding with surgery (5) Lung collapse: Code(s): J98.19 - Other pulmonary collapse Status: Acute Assessment and Plan: -as above -pulm following (6) COPD (chronic obstructive pulmonary disease): Qualifiers: COPD type: COPD with acute exacerbation Qualified Code(s): J44.1 - Chronic obstructive pulmonary disease with (acute) exacerbation Code(s): J44.9 - Chronic obstructive pulmonary disease, unspecified Status: Chronic Assessment and Plan: -continue home medication -nebs scheduled -pulm consulted (7) Diabetes mellitus: Qualifiers: Diabetes mellitus complication status: without complication Diabetes mellitus chcf insulin use: with highway maintainer use Diabetes mellitus type: type 2 Qualified Code(s): E11.9 - Type 2 diabetes mellitus without complications; Z79.4 - upkeep mechanic (current) use of insulin Code(s): E11.9 - Type 2 diabetes mellitus without complications Status: Chronic Assessment and Plan: -insulin sliding scale (8) TATUM (obstructive sleep apnea): Code(s): G47.33 - Obstructive sleep apnea (adult) (pediatric) Status: Chronic Assessment and Plan: -CPAP (9) CVID (common variable immunodeficiency): Code(s): D83.9 - Common variable immunodeficiency, unspecified Status: Chronic Assessment and Plan: -Stable follow-up with PCP (10) Acute hyponatremia: Code(s): E87.1 - Hypo-osmolality and hyponatremia Status: Acute Assessment and Plan: -Probably related to dehydration -IV fluid -Improving (11) RLS (restless legs syndrome): Code(s): G25.81 - Restless legs syndrome Status: Chronic Assessment and Plan: -home meds Subjective Date/time seen: 01/08/22 08:42 Interval history: 61 years old female with past medical history of COPD, hypertension, diabetes mellitus, obstructive sleep apnea, and anxiety, admitted for SBO. Pt was supposed to go for ex lap this morning but this was postponed due to severe hypokalemia. She is having intermittent abdominal pain still, none currently. Still having some bloating but this is improved. She had just received pain medication when I came in and shortly after started having some nausea and vomiting. No cp/sob. She has been trying to rotate positions from side to side due to her pneumonia/lung collapse. Review of Systems Review of Systems: All systems reviewed & are unremarkable except as noted in HPI and below Exam Narrative: General
[2022-01-08] MEDS: AMINO ACIDS 5%/D15W/E-LYTES/CA 2,000 ML with MULTIVITAMINS-12 INJ VIAL 1 2.5 ML, MULTIV... 50 ML IV CONT (09:30)
[2022-01-08] MEDS: MAGNESIUM SULF 2 GM/WATER 50ML 2 GM/50 ML BAG IVPB (10:59)
[2022-01-08 12:13] LABS: Potassium 3.9 mmol/L (3.4-5.0)
[2022-01-08 12:16] LABS: Glucose Point of Care 208 mg/dl (65-105)
[2022-01-08] MEDS: ONDANSETRON INJ 4 MG/2 ML VIAL IV PUSH ×4 (12:34→22:35)
[2022-01-08 13:20] LABS: Blood Urea Nitrogen 16 mg/dL (7-17); Calcium 7.3 mg/dL (8.4-10.2); Carbon Dioxide > 40 mmol/L (22-30); Chloride 88 mmol/L (98-107); Estimated CRCL calculation 95 ml/min; Estimated Glomerular Filt Rate > 60; Glucose 223 mg/dL (65-110); Potassium 3.7 mmol/L (3.4-5.0); Sodium 133 mmol/L (137-145)
[2022-01-08 13:26] LABS: Magnesium 1.8 mg/dL (1.6-2.3)
--- NOTE | 2022-01-08 13:43 | WPDANESEFPP ---
Anes - Eval Final PreProcedure Day of Procedure 01/08/22 13:43 Patient weight: overweight Heart: regular rate and rhythm Lungs: clear to auscultation and normal air movement Airway: Mallampati scale class II Neurological: alert and oriented Last oral intake: >/= 8 hours ASA classification: IV (Urgent) Anesthetic plan: proceed Anesthesia type and monitoring: general ETT and standard monitoring Results Review: All pre-operative results and documents have been reviewed as part of the pre-operative evaluation. Informed Consent: The patient's anesthetic plan and its attendant risks and benefits were discussed with the patient/family/POA. Questions were solicited and answers provided to the satisfaction of the patient/family/POA.
[2022-01-08] MEDS: LACTATED RINGERS 1,000 ML 30 ML IV CONT ×2 (13:50→15:00)
--- NOTE | 2022-01-08 16:06 | PM.OP ---
Procedure Note - Brief Procedure Note - Brief Date of procedure: 01/08/22 Pre-op diagnosis: Small bowel obstruction/hyponatremia Post-op diagnosis: Same Procedure performed: Ex Lap Right hemicolectomy with ileocolic anastomosis Repair of recurrent incisional hernia Anesthesia: AKTHLEEN Surgeon: Aris Marie DO Estimated blood loss (mL): 50 Pathology: Yes (right colon, old mesh) Complications: No immediate complications Condition: Stable Disposition: Floor Findings: Tight napkin ring adhesive band at terminal ileum and ascending colon. Perforation noted at ileocecal junction. Ascending colon appeared somewhat ischemic as well. Right hemicolectomy performed with side to side anastomosis. Old mesh from midline periumbilical region excised and recurrent incisional hernia repaired primarily with PDS running suture.
[2022-01-08] MEDS: fentaNYL CITRATE INJ (*CRX) 100 MCG/2 ML VIAL 25 MCG IV PUSH ×4 (16:21→16:48)
[2022-01-08 16:41] LABS: Glucose Point of Care 243 mg/dl (65-105)
--- NOTE | 2022-01-08 16:42 | PCRCNOTE ---
TREATMENT OMITTED, PT IN SURGERY.
[2022-01-08] MEDS: FAT EMULSIONS IV 20% 250 ML 20.83 ML IVPB (18:20)
[2022-01-08] MEDS: HYDROmorphone HCL INJ (*CRX) 1 MG/ML SYR 0.5 MG IV PUSH (19:26)
[2022-01-08 21:57] LABS: Glucose Point of Care 234 mg/dl (65-105)
[2022-01-09] VITALS (19 sets, daily range): BP systolic 105–121; BP diastolic 46–63; PULSE 89–115; RESP 12–20; TEMP 35.5–37.3; O2SAT 92–97; BMI 30.3
[2022-01-09] MEDS: ALBUTEROL SULFATE NEB 2.5 MG/0.5 ML INH INHALATION ×6 (00:23→19:37)
[2022-01-09] MEDS: IPRATROPIUM BR 0.02% INH SOLN 0.5 MG/2.5 ML VIAL INHALATION ×6 (00:23→19:37)
[2022-01-09] MEDS: ONDANSETRON INJ 4 MG/2 ML VIAL IV PUSH ×2 (03:20→10:48)
[2022-01-09] MEDS: HYDROmorphone HCL INJ (*CRX) 1 MG/ML SYR IV PUSH ×6 (03:20→23:04)
[2022-01-09] MEDS: INSULIN HUMAN REGULAR (*BKC) 100 UNITS/ML SUB-Q ×3 (05:19→17:55)
[2022-01-09 05:30] LABS: Glucose Point of Care 297 mg/dl (65-105)
[2022-01-09] MEDS: CENTRAL LINE FLUSH 10 ML IV PUSH ×3 (05:40→19:50)
[2022-01-09 06:01] LABS: Basophils Percent Auto 0.5 % (0.2-1.2); Eosinophils Absolute Auto 0.2 K/mm3 (0-0.3); Eosinophils Percent Auto 2.5 % (0-4.4); Hematocrit 42.3 % (37.0-47.0); Hemoglobin 13.5 g/dL (12.0-15.0); Immature Granulocyte Absolute 0.04 K/mm3 (0.00-0.031); Immature Granulocyte Percent A 0.5 % (0-0.5); Lymphocytes Absolute Auto 0.75 K/mm3 (0.9-3.2); Mean Corpuscular HGB Conc 31.9 g/dl (32-36); Mean Corpuscular Hemoglobin 27.6 pg (26-34); Mean Corpuscular Volume 86.5 fl (80-100); Mean Platelet Volume 9.9 fl (7.4-10.4); Monocytes Absolute Auto 0.5 K/mm3 (0.1-0.6); Monocytes Percent Auto 5.7 % (2.6-8.5); Neutrophils Absolute Auto 6.8 K/mm3 (1.3-6.7); Neutrophils Percent Auto 81.8 % (45.5-73.1); Platelet Count Result 183 k/mm3 (150-375); Red Blood Count 4.89 M/mm3 (4.2-5.4); Red Cell Distribution Width 13.3 % (11.5-14.5); White Blood Count 8.3 K/mm3 (4.5-10.0)
[2022-01-09 06:14] LABS: INR 1.3; Partial Thromboplastin Time 26.9 SECONDS (22.3-36.8); Prothrombin Time 15.4 Seconds (11.1-14.7)
[2022-01-09 06:21] LABS: Transferrin 120 mg/dL (206-381)
[2022-01-09 07:57] LABS: Glucose Point of Care 262 mg/dl (65-105)
--- NOTE | 2022-01-09 08:09 | PM.PNPUL ---
Progress Note: A&P Assessment and Plan (1) Pneumonia: Code(s): J18.9 - Pneumonia, unspecified organism Status: Acute Assessment and Plan: 01/07 Patient has increased phlegm production, leukocytosis, new right middle lobe collapse with right lower lobe infiltrate on her CT scan with recent vomiting from small-bowel aspiration. she had no right middle lobe collapse and right lower lobe infiltrate on CT scan of the abdomen on 01/04. Patient is day 3 in this hospital and she has common variable immunodeficiency with her last home IVIG given on 01/03/2022. I will send sputum for Gram stain and culture. I recommend broadening her antibiotics given her hospitalization and common variable immunodeficiency to vancomycin, Zosyn and azithromycin. She has right middle lobe collapse that is new since 01/04, she tells me that she has been laying continuously on her right side and she has also been off her auto Pap due to her NG tube in place. Is also difficult for her to cough given the NG tube. I suspect this is mucus retention and or micro atelectasis. At this time I will continue albuterol 2.5 mg q.4 hours, ipratropium 0.5 mg q.4 hours and I spoken with respiratory therapy who will assist in incentive spirometry and a Cornet valve to aid in expectoration. 01/08 the patient states that she is breathing back at her baseline. She denies any wheezing. Minimal phlegm. She has been doing the incentive spirometry and Cornet flutter valve. She is on 3 L nasal cannula saturations 93%. Her white blood cell count is improved to 8.0. She says she has minimal phlegm production. Regarding her small-bowel obstruction this is persistent and was scheduled for an exploratory laparotomy but this was canceled today due to her lack delight imbalances. TPN was started yesterday. Chest x-ray today with continued right lower lobe infiltrate consistent with collapse of the right middle lobe with no progression. plan to continue vancomycin, Zosyn and azithromycin (all started 01/07). From a pulmonary perspective patient does have asthma COPD overlap syndrome and obstructive sleep apnea and now with a right lower lobe pneumonia. Patient is breathing stable her chest x-ray is stable her white count is improved on bronchodilators and antibiotics. She has not had any wheezing this hospitalization I have discussed with the surgeon and there is no contraindication to proceeding with exploratory laparotomy. The surgery team should be aware that she has a history of obstructive sleep apnea, asthma COPD overlap syndrome and she should be monitored closely in the postoperative period for bronchospasm, apneic episodes and hypoxemia. Later in day, after hypokalemia corrected, underwent exploratory laparotomy with adhesion terminal ilium requiring right hemicolectomy with ileocecal anastomosis, extubated and transfered to medical floor. 01/09 Patient is awake and alert and says that she has no respiratory issues. She has minimal cough and no phlegm. Her she has no wheezes. Her white blood cell count is 8.3. her saturations are 97% on 3 L. she denies worsening abdominal pain with deep breathing. I encouraged her to use her incentive spirometry 10 times and hour while awake and the nurse will check with surgery to see if she can be out of bed today. continue vanc, Zosyn, azithromycin today is day 3. Will follow with you (2) TATUM (obstructive sleep apnea): Code(s): G47.33 - Obstructive sleep apnea (adult) (pediatric) Status: Chronic Assessment and Plan: 01/07 Patient is on auto PAP 5-15 at home. On 01/09 I will attempt to obtain a download to assess her compliance. Patient states she is unable to wear any PAP device right now because the NG tube is very sore and she would not be able to tolerate the mask. 01/08 Patient has a history of obstructive sleep apnea, asthma COPD overlap syndrome and she should be monitored closely in the p
[2022-01-09 08:38] LABS: Glucose Point of Care 293 mg/dl (65-105)
[2022-01-09] MEDS: BUDESONIDE RESPULE NEB 0.5 MG/2 ML AMP INHALATION ×2 (08:46→19:37)
[2022-01-09] MEDS: NICOTINE (*PBKC) 14 MG PATCH 1 PATCH TRANSDERM (08:51)
--- NOTE | 2022-01-09 09:12 | ECG_ITS ---
Measurements Intervals [place] Rate: 99 P: -27 PA: 151 QRS: 15 QRSD: 76 T: 60 QT: 333 QTc: 429 Interpretive Statements SINUS RHYTHM LEFT ATRIAL ENLARGEMENT [-0.15mV P WAVE IN V1/V2] SEPTAL INFARCT, AGE INDETERMINATE INFEROLATERAL ST & T-WAVE ABNORMALITY CONSIDER MYOCARDIAL ISCHEMIA COMPARED TO ECG 05/04/2020 14:30:33 ST ABNORMALITIES ARE NEW Electronically Signed On 01-09-2022 12:25:08 CDT by Corey Franco M.D.
[2022-01-09] MEDS: ENOXAPARIN 40 MG/0.4 ML SYRINGE SUB-Q (10:49)
--- NOTE | 2022-01-09 11:19 | PM.IMPN ---
Progress Note: A&P Assessment and Plan (1) SBO (small bowel obstruction): Code(s): K56.609 - Unspecified intestinal obstruction, unspecified as to partial versus complete obstruction Status: Acute Assessment and Plan: -IV pain medication, antiemetics, IVF -NPO -Surgery consult -continue NG tube -started on TPN 01/07/22, continue -s/p ex lap w/ right hemicolectomy and repair of incisional hernia 01/09/22 -management per surgery (2) Diabetes mellitus: Qualifiers: Diabetes mellitus complication status: without complication Diabetes mellitus fdc insulin use: with fdc use Diabetes mellitus type: type 2 Qualified Code(s): E11.9 - Type 2 diabetes mellitus without complications; Z79.4 - senior care (current) use of insulin Code(s): E11.9 - Type 2 diabetes mellitus without complications Status: Chronic Assessment and Plan: -insulin sliding scale -to be adjusted by surgery who is managing her TPN (3) Hypomagnesemia: Code(s): E83.42 - Hypomagnesemia Status: Acute Assessment and Plan: -monitor and replace (4) Hypokalemia: Code(s): E87.6 - Hypokalemia Status: Acute Assessment and Plan: -monitor and replace (5) Pneumonia: Code(s): J18.9 - Pneumonia, unspecified organism Status: Acute Assessment and Plan: -pt developed oxygen requirement overnight 01/06 and became tachypneic. -Ordered stat CTA which showed right middle lobe collapse and right lower lobe pneumonia -changed nebs to scheduled q4 -added IV rocephin and azithromycin, this was changed to azithro/vanc/zosyn to cover for HAP -pulm consulted, Dr. Nicole is following (6) Lung collapse: Code(s): J98.19 - Other pulmonary collapse Status: Acute Assessment and Plan: -as above -pulm following (7) COPD (chronic obstructive pulmonary disease): Qualifiers: COPD type: COPD with acute exacerbation Qualified Code(s): J44.1 - Chronic obstructive pulmonary disease with (acute) exacerbation Code(s): J44.9 - Chronic obstructive pulmonary disease, unspecified Status: Chronic Assessment and Plan: -continue home medication -nebs scheduled -pulm consulted (8) TATUM (obstructive sleep apnea): Code(s): G47.33 - Obstructive sleep apnea (adult) (pediatric) Status: Chronic Assessment and Plan: -CPAP (9) CVID (common variable immunodeficiency): Code(s): D83.9 - Common variable immunodeficiency, unspecified Status: Chronic Assessment and Plan: -Stable follow-up with PCP (10) Acute hyponatremia: Code(s): E87.1 - Hypo-osmolality and hyponatremia Status: Acute Assessment and Plan: -Probably related to dehydration -IV fluid -Improving (11) RLS (restless legs syndrome): Code(s): G25.81 - Restless legs syndrome Status: Chronic Assessment and Plan: -home meds Subjective Date/time seen: 01/09/22 08:19 Interval history: 61 years old female with past medical history of COPD, hypertension, diabetes mellitus, obstructive sleep apnea, and anxiety, admitted for SBO. pt is drowsy this morning. Has diffuse abd pain and nausea. No vomiting. no cp/sob. S/p ex lap yesterday. Review of Systems Review of Systems: All systems reviewed & are unremarkable except as noted in HPI and below Exam Narrative: General: Mild acute distress, mildly ill appearing Eyes: PERRL, no scleral icterus HEENT: NCAT, MMM, NG in place Respiratory: No respiratory distress, diminished lung sounds throughout, no wheezing Cardiovascular: RRR, no murmur Abdominal: abdominal incision dressing c/d/i. diffusely tender, no rebound or guarding Musculoskeletal: Moves all 4 extremities, no edema Neurological: A/Ox3, speech normal, no facial asymmetry Skin: Warm, dry, no rashes Psychiatric: Mary
[2022-01-09 11:20] LABS: Glucose Point of Care 237 mg/dl (65-105)
[2022-01-09] MEDS: AMINO ACIDS 5%/D15W/E-LYTES/CA 2,000 ML with MULTIVITAMINS-12 INJ VIAL 1 2.5 ML, MULTIV... 50 ML IV CONT (11:47)
[2022-01-09] MEDS: FAT EMULSIONS IV 20% 250 ML 20.83 ML IVPB (12:41)
[2022-01-09 16:17] LABS: Glucose Point of Care 281 mg/dl (65-105)
[2022-01-09 17:29] LABS: Glucose Point of Care 274 mg/dl (65-105)
[2022-01-09 18:00] LABS: Alanine Aminotransferase 13 U/L (4-35); Albumin Level 2.4 g/dL (3.5-5.1); Alkaline Phosphatase 58 U/L (38-126); Aspartate Amino Transferase 26 U/L (14-36); Bilirubin,Total 0.4 mg/dL (0.2-1.3); Blood Urea Nitrogen 25 mg/dL (7-17); Calcium 6.8 mg/dL (8.4-10.2); Carbon Dioxide > 40 mmol/L (22-30); Chloride 81 mmol/L (98-107); Estimated CRCL calculation 48 ml/min; Estimated Glomerular Filt Rate 51; Glucose 283 mg/dL (65-110); Magnesium 1.3 mg/dL (1.6-2.3); Phosphorus 3.6 mg/dL (2.5-4.5); Potassium 2.9 mmol/L (3.4-5.0); Sodium 128 mmol/L (137-145)
--- NOTE | 2022-01-09 18:57 | PM.PNGS ---
Progress Note: A&P Assessment and Plan (1) SBO (small bowel obstruction): Code(s): K56.609 - Unspecified intestinal obstruction, unspecified as to partial versus complete obstruction Status: Acute Assessment and Plan: await return of bowel function increase activity Will probably remove Donato tomorrow, keep NG until passing flatus. (2) Protein calorie malnutrition: Qualifiers: Protein-calorie malnutrition severity: unspecified severity Qualified Code(s): E46 - Unspecified protein-calorie malnutrition Code(s): E46 - Unspecified protein-calorie malnutrition Status: Acute Assessment and Plan: Continue TPN Monitor electrolytes (3) Tobacco dependence: Code(s): F17.200 - Nicotine dependence, unspecified, uncomplicated Status: Chronic (4) COPD (chronic obstructive pulmonary disease): Qualifiers: COPD type: COPD with acute exacerbation Qualified Code(s): J44.1 - Chronic obstructive pulmonary disease with (acute) exacerbation Code(s): J44.9 - Chronic obstructive pulmonary disease, unspecified Status: Chronic (5) Pneumonia: Code(s): J18.9 - Pneumonia, unspecified organism Status: Acute (6) Diabetes mellitus: Qualifiers: Diabetes mellitus type: type 2 Diabetes mellitus terminal gauger insulin use: with terminal gauger use Diabetes mellitus complication status: without complication Qualified Code(s): E11.9 - Type 2 diabetes mellitus without complications; Z79.4 - terminal gauger (current) use of insulin Code(s): E11.9 - Type 2 diabetes mellitus without complications Status: Chronic Subjective Subjective Date/Time Seen: 01/09/22 18:57 Interval history: Pain controlled. No BM or flatus yet. Getting up to chair. Exam GI: Inspection: incision (dressing dry) GI Palp: Yes Tenderness to palpation present (GI) (incisional) Auscultation: Hypoactive bowel sounds present Objective Data Vital Signs Vital Signs: Vital Signs - 24 hr 01/08/22 19:21 01/08/22 20:00 01/08/22 20:09 Temperature 36.4 C Pulse Rate 103 H 107 H Respiratory Rate 18 20 Blood Pressure 138/65 Pulse Oximetry 97 95 01/08/22 20:10 01/08/22 20:19 01/08/22 23:21 Temperature 36.4 C L Pulse Rate 112 H 110 H Respiratory Rate 20 20 Blood Pressure 119/62 Pulse Oximetry 91 93 01/09/22 00:24 01/09/22 00:31 01/09/22 03:10 Temperature Pulse Rate 97 101 H 90 Respiratory Rate 20 20 20 Blood Pressure Pulse Oximetry 01/09/22 03:11 01/09/22 06:09 01/09/22 08:00 Temperature 36.1 C L 36.2 C L Pulse Rate 109 H 105 H Respiratory Rate 18 20 Blood Pressure 121/54 L 114/60 Pulse Oximetry 94 97 93 01/09/22 08:47 01/09/22 08:50 01/09/22 08:56 Temperature Pulse Rate 93 92 Respiratory Rate 20 20 Blood Pressure Pulse Oximetry 93 01/09/22 13:02 01/09/22 13:10 01/09/22 14:00 Temperature 35.5 C L Pulse Rate 98 96 115 H Respiratory Rate 20 20 12 Blood Pressure 105/63 Pulse Oximetry 93 01/09/22 16:08 01/09/22 16:17 01/09/22 16:46 Temperature Pulse Rate 94 95 Respiratory Rate 20 20 Blood Pressure Pulse Oximetry 94 Intake/Output Intake/Output: Intake & Output 01/06/22 01/07/22 01/08/22 01/09/22 23:59 23:59 23:59 23:59 Intake Total 2720 2110 1900 2699.2 Output Total 3700 3900 1625 2750 Balance -980 -1790 275 -50.8 Meds/Results Medications: Active Medications Generic Name Dose Route Start Last Admin Trade Name Freq PRN Reason Stop Dose Admin Albuterol 2.5 mg 01/07/22 12:00 01/09/22 16:07 Albuterol Sulfate Neb 2.5 Mg/0.5 Ml Inh INHALATION 2.5 mg Q4HRT LISY Administration Budesonide 0.5 mg 01/07/22 20:00 01/09/22 08:46 Budesonide Respule Neb 0.5 Mg/2 Ml Amp INHALATION 0.5 mg Q12HRT LISY Administration Dextrose 12.5 gm 01/04/22 21:01 Dextrose 50% 25 Gm/50 Ml Syringe IV PUSH PRN PRN Hypoglycemia Protocol Enoxaparin Sodiu
[2022-01-09] MEDS: MAGNESIUM SULF 2 GM/WATER 50ML 2 GM/50 ML BAG IVPB (19:47)
[2022-01-09] MEDS: KCL 40 MEQ/WATER 100 ML 100 ML 25 ML IVPB (21:15)
[2022-01-09 23:13] LABS: Glucose Point of Care 171 mg/dl (65-105)
[2022-01-10] VITALS (12 sets, daily range): BP systolic 92–117; BP diastolic 54–71; PULSE 89–102; RESP 16–20; TEMP 36–36.6; O2SAT 90–95
[2022-01-10] MEDS: HYDROmorphone HCL INJ (*CRX) 1 MG/ML SYR IV PUSH ×9 (01:10→21:14)
[2022-01-10] MEDS: IPRATROPIUM BR 0.02% INH SOLN 0.5 MG/2.5 ML VIAL INHALATION ×4 (04:15→21:42)
[2022-01-10] MEDS: ALBUTEROL SULFATE NEB 2.5 MG/0.5 ML INH INHALATION ×4 (04:15→21:43)
[2022-01-10 05:29] LABS: Basophils Percent Auto 0.4 % (0.2-1.2); Eosinophils Absolute Auto 0.5 K/mm3 (0-0.3); Eosinophils Percent Auto 4.4 % (0-4.4); Hematocrit 35.9 % (37.0-47.0); Hemoglobin 12.1 g/dL (12.0-15.0); Immature Granulocyte Absolute 0.06 K/mm3 (0.00-0.031); Immature Granulocyte Percent A 0.5 % (0-0.5); Lymphocytes Absolute Auto 1.11 K/mm3 (0.9-3.2); Mean Corpuscular HGB Conc 33.7 g/dl (32-36); Mean Corpuscular Hemoglobin 28.6 pg (26-34); Mean Corpuscular Volume 84.9 fl (80-100); Mean Platelet Volume 9.8 fl (7.4-10.4); Monocytes Absolute Auto 0.8 K/mm3 (0.1-0.6); Monocytes Percent Auto 6.8 % (2.6-8.5); Neutrophils Absolute Auto 8.6 K/mm3 (1.3-6.7); Neutrophils Percent Auto 77.9 % (45.5-73.1); Platelet Count Result 167 k/mm3 (150-375); Red Blood Count 4.23 M/mm3 (4.2-5.4); Red Cell Distribution Width 13.1 % (11.5-14.5); White Blood Count 11.1 K/mm3 (4.5-10.0)
[2022-01-10] MEDS: CENTRAL LINE FLUSH 10 ML IV PUSH ×2 (05:30→12:32)
[2022-01-10 05:47] LABS: Alanine Aminotransferase 13 U/L (4-35); Albumin Level 2.6 g/dL (3.5-5.1); Alkaline Phosphatase 63 U/L (38-126); Aspartate Amino Transferase 32 U/L (14-36); Bilirubin,Total 0.5 mg/dL (0.2-1.3); Blood Urea Nitrogen 24 mg/dL (7-17); Calcium 6.9 mg/dL (8.4-10.2); Carbon Dioxide > 40 mmol/L (22-30); Chloride 81 mmol/L (98-107); Estimated CRCL calculation 53 ml/min; Estimated Glomerular Filt Rate 57; Glucose 272 mg/dL (65-110); Magnesium 1.9 mg/dL (1.6-2.3); Potassium 3.6 mmol/L (3.4-5.0); Sodium 127 mmol/L (137-145)
[2022-01-10] MEDS: INSULIN HUMAN REGULAR (*BKC) 100 UNITS/ML SUB-Q (06:05)
[2022-01-10 06:06] LABS: Glucose Point of Care 250 mg/dl (65-105)
--- NOTE | 2022-01-10 08:37 | PM.PNPUL ---
Progress Note: A&P Assessment and Plan (1) Pneumonia: Code(s): J18.9 - Pneumonia, unspecified organism Status: Acute Assessment and Plan: 01/07 Patient has increased phlegm production, leukocytosis, new right middle lobe collapse with right lower lobe infiltrate on her CT scan with recent vomiting from small-bowel aspiration. she had no right middle lobe collapse and right lower lobe infiltrate on CT scan of the abdomen on 01/04. Patient is day 3 in this hospital and she has common variable immunodeficiency with her last home IVIG given on 01/03/2022. I will send sputum for Gram stain and culture. I recommend broadening her antibiotics given her hospitalization and common variable immunodeficiency to vancomycin, Zosyn and azithromycin. She has right middle lobe collapse that is new since 01/04, she tells me that she has been laying continuously on her right side and she has also been off her auto Pap due to her NG tube in place. Is also difficult for her to cough given the NG tube. I suspect this is mucus retention and or micro atelectasis. At this time I will continue albuterol 2.5 mg q.4 hours, ipratropium 0.5 mg q.4 hours and I spoken with respiratory therapy who will assist in incentive spirometry and a Cornet valve to aid in expectoration. 01/08 the patient states that she is breathing back at her baseline. She denies any wheezing. Minimal phlegm. She has been doing the incentive spirometry and Cornet flutter valve. She is on 3 L nasal cannula saturations 93%. Her white blood cell count is improved to 8.0. She says she has minimal phlegm production. Regarding her small-bowel obstruction this is persistent and was scheduled for an exploratory laparotomy but this was canceled today due to her lack delight imbalances. TPN was started yesterday. Chest x-ray today with continued right lower lobe infiltrate consistent with collapse of the right middle lobe with no progression. plan to continue vancomycin, Zosyn and azithromycin (all started 01/07). From a pulmonary perspective patient does have asthma COPD overlap syndrome and obstructive sleep apnea and now with a right lower lobe pneumonia. Patient is breathing stable her chest x-ray is stable her white count is improved on bronchodilators and antibiotics. She has not had any wheezing this hospitalization I have discussed with the surgeon and there is no contraindication to proceeding with exploratory laparotomy. The surgery team should be aware that she has a history of obstructive sleep apnea, asthma COPD overlap syndrome and she should be monitored closely in the postoperative period for bronchospasm, apneic episodes and hypoxemia. Later in day, after hypokalemia corrected, underwent exploratory laparotomy with adhesion terminal ilium requiring right hemicolectomy with ileocecal anastomosis, extubated and transfered to medical floor. 01/09 Patient is awake and alert and says that she has no respiratory issues. She has minimal cough and no phlegm. Her she has no wheezes. Her white blood cell count is 8.3. her saturations are 97% on 3 L. she denies worsening abdominal pain with deep breathing. I encouraged her to use her incentive spirometry 10 times and hour while awake and the nurse will check with surgery to see if she can be out of bed today. continue vanc, Zosyn, azithromycin today is day 3. 01/10 Patient was sitting up on the side of the bed today and said that she felt much better. She has no respiratory complaints. She is on 2 L nasal cannula saturations 93%. White blood cell count is 11.1. She has flatus. NG tube is still in. She was asking when she could go home. Continue vanc, Zosyn and azithromycin today is day 4. From a pulmonary perspective patient is ready to be discharged. She will need a formal home O2 assessment prior to discharge. Recommended her to discharged on cefdinir 300 mg p.o. b.i.d. to complete 10 days of antibiotics. Meghann
[2022-01-10] MEDS: BUDESONIDE RESPULE NEB 0.5 MG/2 ML AMP INHALATION ×2 (08:46→21:42)
[2022-01-10] MEDS: ENOXAPARIN 40 MG/0.4 ML SYRINGE SUB-Q (10:04)
--- NOTE | 2022-01-10 11:34 | PCNFU ---
Nutrition Follow-Up Complete: Alerted GI function as related to SBO as evidenced by TPN Goal:Meet estimated nutritional needs Pt is progressing towards goal on TPN, currently meeting 83% of caloric needs, 100% of protein needs Pt current nutrition is TPN Clnimix E 15/5 just increased to 60ml/hr to provide 1522kcals, 72g PRO, 1690ml fluid. Nutrition recommendation: Continue with current plan of care. Last recorded weight is 77.5 kg- stable Bowel Motility: hypoactive bowel sounds Labs Reviewed:NA: 127, gluc:272 Meds Noted: Skin: WNL Additional Notes: TPN just increased this morning. Will monitor weight, meds, labs, BM, and skin every Sunday and Sunday.
--- NOTE | 2022-01-10 11:38 | PM.IMPN ---
Progress Note: A&P Assessment and Plan (1) SBO (small bowel obstruction): Code(s): K56.609 - Unspecified intestinal obstruction, unspecified as to partial versus complete obstruction Status: Acute Assessment and Plan: -IV pain medication, antiemetics, IVF -NPO -Surgery consult -continue NG tube -started on TPN 01/07/22, continue -s/p ex lap w/ right hemicolectomy and repair of incisional hernia 01/09/22 -management per surgery (2) Diabetes mellitus: Qualifiers: Diabetes mellitus complication status: without complication Diabetes mellitus predatory animal exterminator insulin use: with fdc use Diabetes mellitus type: type 2 Qualified Code(s): E11.9 - Type 2 diabetes mellitus without complications; Z79.4 - care home (current) use of insulin Code(s): E11.9 - Type 2 diabetes mellitus without complications Status: Chronic Assessment and Plan: -insulin sliding scale -increased to moderate dose 01/10/22 (3) Hypomagnesemia: Code(s): E83.42 - Hypomagnesemia Status: Acute Assessment and Plan: -monitor and replace (4) Hypokalemia: Code(s): E87.6 - Hypokalemia Status: Acute Assessment and Plan: -monitor and replace (5) Pneumonia: Code(s): J18.9 - Pneumonia, unspecified organism Status: Acute Assessment and Plan: -pt developed oxygen requirement overnight 01/06 and became tachypneic. -Ordered stat CTA which showed right middle lobe collapse and right lower lobe pneumonia -changed nebs to scheduled q4 -added IV rocephin and azithromycin, this was changed to azithro/vanc/zosyn to cover for HAP -pulm consulted, Dr. Nicole is following (6) Lung collapse: Code(s): J98.19 - Other pulmonary collapse Status: Acute Assessment and Plan: -as above -pulm following (7) COPD (chronic obstructive pulmonary disease): Qualifiers: COPD type: COPD with acute exacerbation Qualified Code(s): J44.1 - Chronic obstructive pulmonary disease with (acute) exacerbation Code(s): J44.9 - Chronic obstructive pulmonary disease, unspecified Status: Chronic Assessment and Plan: -continue home medication -nebs scheduled -pulm consulted (8) TATUM (obstructive sleep apnea): Code(s): G47.33 - Obstructive sleep apnea (adult) (pediatric) Status: Chronic Assessment and Plan: -CPAP when NG removed (9) CVID (common variable immunodeficiency): Code(s): D83.9 - Common variable immunodeficiency, unspecified Status: Chronic Assessment and Plan: -Stable follow-up with PCP (10) Acute hyponatremia: Code(s): E87.1 - Hypo-osmolality and hyponatremia Status: Acute Assessment and Plan: -Probably related to dehydration -IV fluid -was improving initially on IVF but is continuing to drop despite clinimix. -discussed with [facility] surgery BUNGHOLE BORER and we have decided to consult nephrology for recommendations (11) RLS (restless legs syndrome): Code(s): G25.81 - Restless legs syndrome Status: Chronic Assessment and Plan: -home meds Subjective Date/time seen: 01/10/22 11:39 Interval history: 61 years old female with past medical history of COPD, hypertension, diabetes mellitus, obstructive sleep apnea, and anxiety, admitted for SBO. Pt is doing better today. She is still having moderate abd pain. No nausea. Passing flatus, no BM. NG still in place. No cp, sob. Still some wet cough. Review of Systems Review of Systems: All systems reviewed & are unremarkable except as noted in HPI and below Exam Narrative: General: NAD, non toxic Eyes: PERRL, no scleral icterus HEENT: NCAT, MMM, NG in place Respiratory: No respiratory distress, diminished lung sounds throughout, no wheezing Cardiovascular: RRR, no murmur Abdominal: abdominal incision dressing c/d/i. diffusely ten
[2022-01-10] MEDS: AMINO ACIDS 5%/D15W/E-LYTES/CA 2,000 ML with MULTIVITAMINS-12 INJ VIAL 1 2.5 ML, MULTIV... 50 ML IV CONT (11:55)
[2022-01-10] MEDS: NICOTINE (*PBKC) 14 MG PATCH 1 PATCH TRANSDERM (12:05)
--- NOTE | 2022-01-10 12:14 | P.CONNP_ITS ---
Assessment and Plan Assessment and plan (1) Hyponatremia: Code(s): E87.1 - Hypo-osmolality and hyponatremia Status: Acute Assessment and Plan: * seems acute on chronic * sodium running ~ 133 - 134 in 2019 * on admission, was 126 but normalized with IVF hydration arguing dehydration * however, sodium started to decline again on 01/08 (133 -> 128 -> 127 today) * multiple issues likely playing a role * known COPD * pneumonia * diminished oral intake/TPN use * D5W carrier fluid use with IV K+ supplementation and antibiotics * check urine electrolytes * check TSH and cortisol as well as SPEP and UPEP * will ask pharmacy to change all carrier for PRN IV meds/electrolytes/antibiotics to normal saline * if possible, add increase sodium chloride content in TPN as well * follow trend of repeat sodium levels (2) SBO (small bowel obstruction): Code(s): K56.609 - Unspecified intestinal obstruction, unspecified as to partial versus complete obstruction Status: Acute Assessment and Plan: * no resolution with NG tube decompression * complicated by multiple prior abdominal surgeries * s/p exploratory laparotomy with adhesiolysis and release of SBO with right hemicolectomy and ileocolic anastomosis (on 01/08/22) * Surgery following * on TPN and clear liquids as tolerated * analgesics and antiemetics as needed (3) Pneumonia: Code(s): J18.9 - Pneumonia, unspecified organism Status: Acute Assessment and Plan: * as noted by imaging to date * complicated by known COPD * Pulmonary following * antibiotics * follow culture date * supplemental oxygen PRN (4) COPD exacerbation: Code(s): J44.1 - Chronic obstructive pulmonary disease with (acute) exacerbation Status: Acute Assessment and Plan: * continue nebulizer treatments * supportive therapy (5) Diabetes mellitus: Qualifiers: Diabetes mellitus complication status: without complication Diabetes mellitus terminal supervisor insulin use: with terminal supervisor use Diabetes mellitus type: type 2 Qualified Code(s): E11.9 - Type 2 diabetes mellitus without complications; 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 Will continue to follow. Will continue to follow. History of Present Illness Reason for Consult Consult date: 01/10/22 Reason for consult: hyponatremia Chief Complaint Chief complaint: Small bowel obstruction/hyponatremia History of Present Illness Narrative: The patient is a 61-year-old female with a past medical history as outlined below who presented to [facility] emergency with complaints of abdominal pain. The patient stated that the abdominal pain started almost 10 days ago but has progressively worsened in that time frame despite conservative therapy. As the symptoms continued to get worse, she presented to the ER for further evaluation. Her initial symptoms were abdominal distension that slowly progressed and lead to symptoms of nausea and vomiting with any type of oral intake. She has been unable to keep any food down for the last several days. she denies any other overt symptoms with re
--- NOTE | 2022-01-10 12:14 | PM.CNNEP ---
Assessment and Plan Assessment and plan (1) Hyponatremia: Code(s): E87.1 - Hypo-osmolality and hyponatremia Status: Acute Assessment and Plan: seems acute on chronic sodium running ~ 133 - 134 in 2019 on admission, was 126 but normalized with IVF hydration arguing dehydration however, sodium started to decline again on 01/08 (133 -> 128 -> 127 today) multiple issues likely playing a role known COPD pneumonia diminished oral intake/TPN use D5W carrier fluid use with IV K+ supplementation and antibiotics check urine electrolytes check TSH and cortisol as well as SPEP and UPEP will ask pharmacy to change all carrier for PRN IV meds/electrolytes/antibiotics to normal saline if possible, add increase sodium chloride content in TPN as well follow trend of repeat sodium levels (2) SBO (small bowel obstruction): Code(s): K56.609 - Unspecified intestinal obstruction, unspecified as to partial versus complete obstruction Status: Acute Assessment and Plan: no resolution with NG tube decompression complicated by multiple prior abdominal surgeries s/p exploratory laparotomy with adhesiolysis and release of SBO with right hemicolectomy and ileocolic anastomosis (on 01/08/22) Surgery following on TPN and clear liquids as tolerated analgesics and antiemetics as needed (3) Pneumonia: Code(s): J18.9 - Pneumonia, unspecified organism Status: Acute Assessment and Plan: as noted by imaging to date complicated by known COPD Pulmonary following antibiotics follow culture date supplemental oxygen PRN (4) COPD exacerbation: Code(s): J44.1 - Chronic obstructive pulmonary disease with (acute) exacerbation Status: Acute Assessment and Plan: continue nebulizer treatments supportive therapy (5) Diabetes mellitus: Qualifiers: Diabetes mellitus complication status: without complication Diabetes mellitus intermediate accountant insulin use: with fdc use Diabetes mellitus type: type 2 Qualified Code(s): E11.9 - Type 2 diabetes mellitus without complications; Z79.4 - [employer] (current) use of insulin Code(s): E11.9 - Type 2 diabetes mellitus without complications Status: Chronic Assessment and Plan: follow accuchecks glycemic control Long and extensive discussion (greater than 20 minutes) with the patient as well as family at bedside regarding the above issues specifically with regard to her hyponatremia and the likely resultant issue due to her current clinical situation as noted above. Will continue to follow. Will continue to follow. History of Present Illness Reason for Consult Consult date: 01/10/22 Reason for consult: hyponatremia Chief Complaint Chief complaint: Small bowel obstruction/hyponatremia History of Present Illness Narrative: The patient is a 61-year-old female with a past medical history as outlined below who presented to [facility] emergency with complaints of abdominal pain. The patient stated that the abdominal pain started almost 10 days ago but has progressively worsened in that time frame despite conservative therapy. As the symptoms continued to get worse, she presented to the ER for further evaluation. Her initial symptoms were abdominal distension that slowly progressed and lead to symptoms of nausea and vomiting with any type of oral intake. She has been unable to keep any food down for the last several days. she denies any other overt symptoms with regard to fevers chills diarrhea shortness of breath chest pain palpitations dizziness or lightheadedness. Workup and evaluation emergency room demonstrated the patient to be in [id number] distress secondary to abdominal pain / distension and routine blood tests did demonstrate some electrolyte abnormalities with regard to low potassium and low magnesium but otherwise preserved renal function. Her CBC was otherwis
[2022-01-10 12:15] LABS: Glucose Point of Care 259 mg/dl (65-105)
[2022-01-10] MEDS: INSULIN ASPART (*BKC) 100 UNITS/ML SUB-Q ×2 (12:26→17:46)
[2022-01-10] MEDS: FAT EMULSIONS IV 20% 250 ML 20.83 ML IVPB (12:34)
[2022-01-10 14:12] LABS: Creatinine Urine 48.5 mg/dL; Sodium Urine Random 70 meq/L; Total Protein Urine Random 87 mg/dL; Ur Ttl Prot Creatinine Ratio 1.79 mg/mg (0-0.20)
--- NOTE | 2022-01-10 14:38 | PM.PNGS ---
Progress Note: A&P Assessment and Plan (1) SBO (small bowel obstruction): Code(s): K56.609 - Unspecified intestinal obstruction, unspecified as to partial versus complete obstruction Status: Acute Assessment and Plan: Await return of bowel function Continue NG tube, bowel rest, TPN Encouraged increasing activity and walking the halls today. If able to tolerate activity, will remove Donato catheter today. Continue IV antibiotics (2) Protein calorie malnutrition: Qualifiers: Protein-calorie malnutrition severity: unspecified severity Qualified Code(s): E46 - Unspecified protein-calorie malnutrition Code(s): E46 - Unspecified protein-calorie malnutrition Status: Acute Assessment and Plan: Continue TPN/Clinimix, will increase rate to 60 mL/hr per graphic editor recommendations. May need additional IV fluids if Nephrology feels appropriate for her hyponatremia. Continue to monitor electrolytes (3) COPD (chronic obstructive pulmonary disease): Qualifiers: COPD type: COPD with acute exacerbation Qualified Code(s): J44.1 - Chronic obstructive pulmonary disease with (acute) exacerbation Code(s): J44.9 - Chronic obstructive pulmonary disease, unspecified Status: Chronic (4) Pneumonia: Code(s): J18.9 - Pneumonia, unspecified organism Status: Acute (5) Diabetes mellitus: Qualifiers: Diabetes mellitus type: type 2 Diabetes mellitus skilled nursing insulin use: with machine long goods helper use Diabetes mellitus complication status: without complication Qualified Code(s): E11.9 - Type 2 diabetes mellitus without complications; Z79.4 - [facility] (current) use of insulin Code(s): E11.9 - Type 2 diabetes mellitus without complications Status: Chronic (6) Tobacco dependence: Code(s): F17.200 - Nicotine dependence, unspecified, uncomplicated Status: Chronic Additional Plan I have discussed the patient's case and plan of care with Dr. Marie. Subjective Subjective Date/Time Seen: 01/10/22 14:38 Post Op day: 2 (Ex lap, right hemicolectomy, repair incisional hernia) Patient reports: no new complaints, no bowel movement and afebrile Interval history: Patient seen and examined. Chart reviewed. She reports feeling sore, but otherwise well today. Her post-op pain is well controlled. She reports passing gas once today. She has not gotten up to walk in the room or halls since surgery. She reports a cough but no shortness of breath. She does think she would be able to tolerate walking from a respiratory standpoint. Nursing reports the patient has been getting a lot of ice chips. She had 1350 cc output from NG yesterday during dayshift and 800 cc from overnight. The patient reports only having 3 cups of ice chips so far today. Review of Systems Review of Systems: All systems reviewed & are unremarkable except as noted in HPI and below Constitutional: Constitutional: Reports as per HPI, Reports no additional constitutional complaints, Denies chills and Denies fever(s) Cardiovascular: Cardiovascular: Reports no additional cardiovascular complaints, Denies chest pain and Denies leg edema Respiratory: Respiratory: Reports no additional respiratory complaints, Reports cough and Denies dyspnea Gastrointestinal: Gastrointestinal: Reports as per HPI and Reports no additional gastrointestinal complaints Neurologic: Reports system reviewed and no additional complaints, except as documented, Denies Abnormal speech present and Denies focal weakness Exam Const: General: comfortable, no acute distress, alert and awake Orientation/consciousness: patient oriented x3 Resp: Effort & Inspection: normal respiratory effort (on 2 L O2 via NC) Auscultation: rhonchi right upper and right lower and diminished lung sounds on the right in the lower lung anthony Cardio: Rate: regular rate Rhythm: regular rhythm GI: Inspection: incision (Midline incision dry with stapl
[2022-01-10 16:56] LABS: Triglycerides 271 mg/dL (<150)
[2022-01-10 17:44] LABS: Glucose Point of Care 215 mg/dl (65-105)
[2022-01-10] MEDS: PANTOPRAZOLE SODIUM IV 40 MG VIAL IV PUSH (17:46)
--- NOTE | 2022-01-10 21:45 | PC.NURSE ---
After much encouragement, pt walked about 200ft in the hallway. Deep breathing exercises encouraged while ambulating. No SOB noted. Pt did request to wash at sink, brushed her own teeth as well.
[2022-01-11] VITALS (11 sets, daily range): BP systolic 109–126; BP diastolic 50–55; PULSE 87–100; RESP 18–20; TEMP 36.3–36.4; O2SAT 90–96
[2022-01-11] MEDS: HYDROmorphone HCL INJ (*CRX) 1 MG/ML SYR IV PUSH ×5 (00:15→20:30)
[2022-01-11] MEDS: CENTRAL LINE FLUSH 10 ML IV PUSH ×2 (06:03→14:24)
[2022-01-11 06:06] LABS: Basophils Percent Auto 0.4 % (0.2-1.2); Eosinophils Absolute Auto 0.5 K/mm3 (0-0.3); Eosinophils Percent Auto 4.4 % (0-4.4); Hemoglobin 11.7 g/dL (12.0-15.0); Immature Granulocyte Absolute 0.05 K/mm3 (0.00-0.031); Immature Granulocyte Percent A 0.5 % (0-0.5); Lymphocytes Absolute Auto 1.21 K/mm3 (0.9-3.2); Lymphocytes Percent Auto 11.6 % (18.3-44.2); Mean Corpuscular HGB Conc 32.5 g/dl (32-36); Mean Corpuscular Hemoglobin 27.8 pg (26-34); Mean Corpuscular Volume 85.5 fl (80-100); Monocytes Absolute Auto 0.6 K/mm3 (0.1-0.6); Monocytes Percent Auto 5.6 % (2.6-8.5); Neutrophils Absolute Auto 8.1 K/mm3 (1.3-6.7); Neutrophils Percent Auto 77.5 % (45.5-73.1); Platelet Count Result 178 k/mm3 (150-375); Red Blood Count 4.21 M/mm3 (4.2-5.4); Red Cell Distribution Width 13.2 % (11.5-14.5); White Blood Count 10.5 K/mm3 (4.5-10.0)
[2022-01-11 06:27] LABS: Alanine Aminotransferase 15 U/L (4-35); Albumin Level 2.7 g/dL (3.5-5.1); Alkaline Phosphatase 74 U/L (38-126); Aspartate Amino Transferase 36 U/L (14-36); Bilirubin,Total 0.5 mg/dL (0.2-1.3); Blood Urea Nitrogen 21 mg/dL (7-17); Calcium 7.3 mg/dL (8.4-10.2); Carbon Dioxide > 40 mmol/L (22-30); Chloride 80 mmol/L (98-107); Estimated CRCL calculation 58 ml/min; Estimated Glomerular Filt Rate > 60; Glucose 239 mg/dL (65-110); Magnesium 1.8 mg/dL (1.6-2.3); Phosphorus 2.6 mg/dL (2.5-4.5); Potassium 3.1 mmol/L (3.4-5.0); Sodium 125 mmol/L (137-145)
[2022-01-11] MEDS: BUDESONIDE RESPULE NEB 0.5 MG/2 ML AMP INHALATION ×2 (08:53→21:13)
[2022-01-11] MEDS: ALBUTEROL SULFATE NEB 2.5 MG/0.5 ML INH INHALATION ×2 (08:53→21:13)
[2022-01-11] MEDS: IPRATROPIUM BR 0.02% INH SOLN 0.5 MG/2.5 ML VIAL INHALATION ×2 (08:53→21:13)
--- NOTE | 2022-01-11 09:31 | PM.PNGS ---
Progress Note: A&P Assessment and Plan (1) SBO (small bowel obstruction): Code(s): K56.609 - Unspecified intestinal obstruction, unspecified as to partial versus complete obstruction Status: Acute Assessment and Plan: Remove NG, start clears. Increase activity. (2) Protein calorie malnutrition: Qualifiers: Protein-calorie malnutrition severity: unspecified severity Qualified Code(s): E46 - Unspecified protein-calorie malnutrition Code(s): E46 - Unspecified protein-calorie malnutrition Status: Acute Assessment and Plan: Continue TPN one more day (3) Pneumonia: Code(s): J18.9 - Pneumonia, unspecified organism Status: Acute (4) COPD (chronic obstructive pulmonary disease): Qualifiers: COPD type: COPD with acute exacerbation Qualified Code(s): J44.1 - Chronic obstructive pulmonary disease with (acute) exacerbation Code(s): J44.9 - Chronic obstructive pulmonary disease, unspecified Status: Chronic (5) Tobacco dependence: Code(s): F17.200 - Nicotine dependence, unspecified, uncomplicated Status: Chronic (6) Diabetes mellitus: Qualifiers: Diabetes mellitus type: type 2 Diabetes mellitus custodial insulin use: with continuous churn buttermaker use Diabetes mellitus complication status: without complication Qualified Code(s): E11.9 - Type 2 diabetes mellitus without complications; 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 No BM yet. Pain improving. No other complaints. Exam GI: Inspection: non-distended and incision (intact with tu) GI Palp: Yes Soft to palpation and Yes Tenderness to palpation present (GI) (incisional) Auscultation: normal bowel sounds Objective Data Vital Signs Vital Signs: Vital Signs - 24 hr 01/10/22 13:42 01/10/22 14:27 01/10/22 19:33 Temperature 36.6 C 36.5 C Pulse Rate 102 H 96 89 Respiratory Rate 16 18 Blood Pressure 92/56 L 117/54 L Pulse Oximetry 91 90 92 01/10/22 20:00 01/10/22 21:39 01/10/22 21:46 Temperature Pulse Rate 90 Respiratory Rate 20 Blood Pressure Pulse Oximetry 95 95 01/10/22 21:48 01/11/22 04:30 01/11/22 08:53 Temperature 36.4 C Pulse Rate 92 89 90 Respiratory Rate 20 18 20 Blood Pressure 109/50 L Pulse Oximetry 96 01/11/22 08:54 01/11/22 09:05 Temperature Pulse Rate 90 Respiratory Rate 20 Blood Pressure Pulse Oximetry 95 Intake/Output Intake/Output: Intake & Output 01/08/22 01/09/22 01/10/22 01/11/22 23:59 23:59 23:59 23:59 Intake Total 1900 2799.2 2474 865 Output Total 1625 2750 2875 600 Balance 275 49.2 -401 265 Meds/Results Medications: Active Medications Generic Name Dose Route Start Last Admin Trade Name Freq PRN Reason Stop Dose Admin Albuterol 2.5 mg 01/10/22 12:00 01/11/22 08:53 Albuterol Sulfate Neb 2.5 Mg/0.5 Ml Inh INHALATION 2.5 mg [id number] LISY Administration Budesonide 0.5 mg 01/07/22 20:00 01/11/22 08:53 Budesonide Respule Neb 0.5 Mg/2 Ml Amp INHALATION 0.5 mg Q12HRT LISY Administration Dextrose 12.5 gm 01/04/22 21:01 Dextrose 50% 25 Gm/50 Ml Syringe IV PUSH PRN PRN Hypoglycemia Protocol Enoxaparin Sodium 40 mg 01/09/22 09:00 01/10/22 10:04 Enoxaparin 40 Mg/0.4 Ml Syringe SUB-Q 40 mg DAILY LISY Administration Fluticasone Propionate 1 spray 01/05/22 17:00 01/10/22 17:46 Fluticasone Propionate 0.05% Na Spr 16 Gm Btl (*Bkc) NASAL Not Given BID LISY Glucagon 1 mg 01/04/22 21:01 Glucagon For Inj 1 Mg Vial IM PRN PRN Hypoglycemia Protocol Glucose 15 gm 01/04/22 21:01 Glucose Oral Gel 15 Gm Of Glucse In 37.5 Gm Tube PO PRN PRN Hypoglycemia Protocol Hydralazine HCl 10 mg 01/04/22 22:36 Hydralazine Hc
[2022-01-11] MEDS: HYDROmorphone HCL INJ (*CRX) 1 MG/ML SYR 0.5 MG IV PUSH ×4 (09:39→16:27)
[2022-01-11] MEDS: ENOXAPARIN 40 MG/0.4 ML SYRINGE SUB-Q (09:40)
[2022-01-11] MEDS: NICOTINE (*PBKC) 14 MG PATCH 1 PATCH TRANSDERM (09:40)
[2022-01-11] MEDS: PHARMACIST COMMUNICATION ORDER 1 EACH XX (09:42)
[2022-01-11] MEDS: BISACODYL 10 MG SUPPOSITORY RECTAL (09:42)
[2022-01-11] MEDS: INSULIN GLARGINE (*BKC) 100 UNITS/ML 11 UNITS SUB-Q (09:43)
[2022-01-11] MEDS: MAGNESIUM SULF 1 GM/D5W 100 ML 1 GM/100 ML BAG IVPB (09:43)
--- NOTE | 2022-01-11 09:50 | PM.PNPUL ---
Progress Note: A&P Assessment and Plan (1) Pneumonia: Code(s): J18.9 - Pneumonia, unspecified organism Status: Acute Assessment and Plan: 01/07 Patient has increased phlegm production, leukocytosis, new right middle lobe collapse with right lower lobe infiltrate on her CT scan with recent vomiting from small-bowel aspiration. she had no right middle lobe collapse and right lower lobe infiltrate on CT scan of the abdomen on 01/04. Patient is day 3 in this hospital and she has common variable immunodeficiency with her last home IVIG given on 01/03/2022. I will send sputum for Gram stain and culture. I recommend broadening her antibiotics given her hospitalization and common variable immunodeficiency to vancomycin, Zosyn and azithromycin. She has right middle lobe collapse that is new since 01/04, she tells me that she has been laying continuously on her right side and she has also been off her auto Pap due to her NG tube in place. Is also difficult for her to cough given the NG tube. I suspect this is mucus retention and or micro atelectasis. At this time I will continue albuterol 2.5 mg q.4 hours, ipratropium 0.5 mg q.4 hours and I spoken with respiratory therapy who will assist in incentive spirometry and a Cornet valve to aid in expectoration. 01/08 the patient states that she is breathing back at her baseline. She denies any wheezing. Minimal phlegm. She has been doing the incentive spirometry and Cornet flutter valve. She is on 3 L nasal cannula saturations 93%. Her white blood cell count is improved to 8.0. She says she has minimal phlegm production. Regarding her small-bowel obstruction this is persistent and was scheduled for an exploratory laparotomy but this was canceled today due to her lack delight imbalances. TPN was started yesterday. Chest x-ray today with continued right lower lobe infiltrate consistent with collapse of the right middle lobe with no progression. plan to continue vancomycin, Zosyn and azithromycin (all started 01/07). From a pulmonary perspective patient does have asthma COPD overlap syndrome and obstructive sleep apnea and now with a right lower lobe pneumonia. Patient is breathing stable her chest x-ray is stable her white count is improved on bronchodilators and antibiotics. She has not had any wheezing this hospitalization I have discussed with the surgeon and there is no contraindication to proceeding with exploratory laparotomy. The surgery team should be aware that she has a history of obstructive sleep apnea, asthma COPD overlap syndrome and she should be monitored closely in the postoperative period for bronchospasm, apneic episodes and hypoxemia. Later in day, after hypokalemia corrected, underwent exploratory laparotomy with adhesion terminal ilium requiring right hemicolectomy with ileocecal anastomosis, extubated and transfered to medical floor. 01/09 Patient is awake and alert and says that she has no respiratory issues. She has minimal cough and no phlegm. Her she has no wheezes. Her white blood cell count is 8.3. her saturations are 97% on 3 L. she denies worsening abdominal pain with deep breathing. I encouraged her to use her incentive spirometry 10 times and hour while awake and the nurse will check with surgery to see if she can be out of bed today. continue vanc, Zosyn, azithromycin today is day 3. 01/10 Patient was sitting up on the side of the bed today and said that she felt much better. She has no respiratory complaints. She is on 2 L nasal cannula saturations 93%. White blood cell count is 11.1. She has flatus. NG tube is still in. She was asking when she could go home. Continue vanc, Zosyn and azithromycin today is day 4. 01/11 Patient states she continues to improve. She has no respiratory complaints. She was on 2 L nasal cannula with saturations 95%. White blood cell count is 10.5. She did incentive spirometry at 1300 mL. She is coughing
[2022-01-11] MEDS: ONDANSETRON INJ 4 MG/2 ML VIAL IV PUSH ×2 (09:58→20:39)
--- NOTE | 2022-01-11 11:06 | W.PM.PROC2 ---
Procedure Note - Detailed Date of Procedure 01/08/22 Pre-op Diagnosis Small bowel obstruction/hyponatremia Post-op Diagnosis Same Procedure Performed 1. Exploratory laparotomy with adhesiolysis and release of small-bowel obstruction 2. Right hemicolectomy with ileocolic anastomosis 3. Repair incarcerated recurrent incisional hernia 4. Removal of mesh foreign body Surgeon Aris Marie, DO Anesthesia General Indications This is a 61-year-old woman who presented to the emergency department on 01/04/2022 with abdominal pain, bloating, and nausea and vomiting. She had been experiencing symptoms for about 10 days prior to presentation. She has a history of , total hysterectomy, cholecystectomy, and appendectomy. NG placed in the emergency department. After a couple days of NG decompression, she was still not having any significant bowel function. A small-bowel follow-through was obtained on 01/07/2022. This showed persistent distal small-bowel obstruction without contrast making it into the colon after several hours. Decision was then made to proceed with exploratory laparotomy. Findings Exploratory laparotomy was performed. Patient had 2 recurrent incisional hernias her midline abdomen just above and below her umbilicus. She had mesh from a previous repair that was protruding up to the inferior incisional hernia. The hernia sac was excised. There was some omentum incarcerated within hernia sac but no bowel appeared to be involved. The omental adhesions were all taken down around the mesh and the midline abdominal wall to allow for adequate visualization of the entire abdomen. I then excised the mesh to allow repair of the recurrent incisional hernia at the end of the procedure. The patient was found to have an adhesive band going from the transverse colon just beyond the hepatic flexure all the way down to the underside of the terminal ileum. This was a very tight adhesive band causing a closed loop obstruction involving the terminal ileum and ascending colon. The bowel that was within the closed loop obstruction appeared to be becoming ischemic. There also appeared to be a small microperforation at the ileocecal valve. The remainder of the proximal small bowel all appeared very dilated but appeared healthy and viable. The adhesive band was taken down but the bowel along the terminal ileum and ascending colon did not appear to be viable. Decision was made to perform a right hemicolectomy with [id number] ileocolic anastomosis. The anastomosis appeared healthy and viable. The right colon was sent to the lab for pathology. I was able to place a bowel clamp right at the terminal ileum before the area of perforation to minimize any chance of spillage. There did not appear to be any significant spillage throughout the abdominal cavity. The abdomen was irrigated with sterile saline and no other abnormalities were noted. The fascia was then closed along with the incisional hernias using 0 PDS running suture starting from each end and meeting in the middle. Description of Procedure Procedure as well as risks, benefits, and alternatives were discussed with the patient. Written consent was obtained and placed in chart prior to procedure. Patient was brought back to surgical suite. She was placed supine on operating table. Time-out was done to confirm patient and procedure. She was then intubated by the anesthesia department. Her abdomen was prepped and draped in sterile fashion using chlorhexidine prep. A 12 cm vertical midline incision was made centered on the umbilicus using a 10 blade scalpel. Electrocautery was used for hemostasis and for dissection through the subcutaneous tissue. The linea alba was encountered and this was incised using electrocautery. I then also encountered the incisional hernia and carefully dissected the hernia sac free from the surrounding subcutaneous attachments using electrocautery. The hernia sac wa
[2022-01-11] MEDS: PANTOPRAZOLE SODIUM IV 40 MG VIAL IV PUSH (11:37)
--- NOTE | 2022-01-11 12:11 | P.PNNP_ITS ---
Progress Note: A&P Assessment and Plan (1) Hyponatremia: Code(s): E87.1 - Hypo-osmolality and hyponatremia Status: Acute Assessment and Plan: * seems acute on chronic * sodium running ~ 133 - 134 in 2019 * on admission, was 126 but normalized with IVF hydration arguing dehydration * however, sodium started to decline again on 01/08 - down to 125 today * multiple issues likely playing a role: * known COPD * pneumonia * diminished oral intake/TPN use * D5W carrier fluid use with IV K+ supplementation and antibiotics * urine electrolytes not consistent with pre-renal azotemia * TSH and cortisol okay; SPEP and UPEP pending * have asked pharmacy to change all carrier fluid for PRN IV meds/electrolytes/antibiotics to normal saline * if possible, add/increase sodium chloride content in TPN as well * suspect as oral intake improves, so will sodium level * follow trend of repeat sodium (2) SBO (small bowel obstruction): Code(s): K56.609 - Unspecified intestinal obstruction, unspecified as to partial versus complete obstruction Status: Acute Assessment and Plan: * no resolution with NG tube decompression * complicated by multiple prior abdominal surgeries * s/p exploratory laparotomy with adhesiolysis and release of SBO with right hemicolectomy and ileocolic anastomosis (on 01/08/22) * Surgery following * on TPN and clear liquids -- advance as tolerated * analgesics and antiemetics as needed (3) Pneumonia: Code(s): J18.9 - Pneumonia, unspecified organism Status: Acute Assessment and Plan: * as noted by imaging to date * complicated by known COPD * Pulmonary following * antibiotics * follow culture date * supplemental oxygen PRN (4) COPD exacerbation: Code(s): J44.1 - Chronic obstructive pulmonary disease with (acute) exacerbation Status: Acute Assessment and Plan: * continue nebulizer treatments * supportive therapy (5) Diabetes mellitus: Qualifiers: Diabetes mellitus complication status: without complication Diabetes mellitus senior care insulin use: with batch and furnace operator use Diabetes mellitus type: type 2 Qualified Code(s): E11.9 - Type 2 diabetes mellitus without complications; 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 Subjective Date/time seen: 01/11/22 12:11 Seems to be doing relatively well today; still with some abdominal soreness which is exacerbated with cough; still reports fatigue and weakness; apparently going to attempt clear liquid diet today; no other reported issues or events at this time. Exam Narrative: General: WD/WN female in NAD Heart: normal S1 and S2; no rub Lungs: diminished at bases with a few crackles/rhonchi Abdomen: soft, mild TTP nondistended, positive bowel sounds Extremities: no cyanosis or clubbing; no edema Skin: warm and dry Objective Data Vital Signs Vital Signs: Vital Signs Temp Pulse Resp BP Pulse Ox 01/11/22 09:05 90 20 01/11/22 08:54 95 01/11/22 08:53 90 01/11/22 04:30 36.4 C 89 18 109/50 L 96 01/10/22 21:48 92 20 01/10/22 21:46 95 01/10/22 21:39 90 20 01/10/22 20:00 95 01/10
--- NOTE | 2022-01-11 12:11 | PM.PNNEP ---
Progress Note: A&P Assessment and Plan (1) Hyponatremia: Code(s): E87.1 - Hypo-osmolality and hyponatremia Status: Acute Assessment and Plan: seems acute on chronic sodium running ~ 133 - 134 in 2019 on admission, was 126 but normalized with IVF hydration arguing dehydration however, sodium started to decline again on 01/08 - down to 125 today multiple issues likely playing a role: known COPD pneumonia diminished oral intake/TPN use D5W carrier fluid use with IV K+ supplementation and antibiotics urine electrolytes not consistent with pre-renal azotemia TSH and cortisol okay; SPEP and UPEP pending have asked pharmacy to change all carrier fluid for PRN IV meds/electrolytes/antibiotics to normal saline if possible, add/increase sodium chloride content in TPN as well suspect as oral intake improves, so will sodium level follow trend of repeat sodium (2) SBO (small bowel obstruction): Code(s): K56.609 - Unspecified intestinal obstruction, unspecified as to partial versus complete obstruction Status: Acute Assessment and Plan: no resolution with NG tube decompression complicated by multiple prior abdominal surgeries s/p exploratory laparotomy with adhesiolysis and release of SBO with right hemicolectomy and ileocolic anastomosis (on 01/08/22) Surgery following on TPN and clear liquids -- advance as tolerated analgesics and antiemetics as needed (3) Pneumonia: Code(s): J18.9 - Pneumonia, unspecified organism Status: Acute Assessment and Plan: as noted by imaging to date complicated by known COPD Pulmonary following antibiotics follow culture date supplemental oxygen PRN (4) COPD exacerbation: Code(s): J44.1 - Chronic obstructive pulmonary disease with (acute) exacerbation Status: Acute Assessment and Plan: continue nebulizer treatments supportive therapy (5) Diabetes mellitus: Qualifiers: Diabetes mellitus complication status: without complication Diabetes mellitus oysterman insulin use: with oysterman use Diabetes mellitus type: type 2 Qualified Code(s): E11.9 - Type 2 diabetes mellitus without complications; 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 Subjective Date/time seen: 01/11/22 12:11 Seems to be doing relatively well today; still with some abdominal soreness which is exacerbated with cough; still reports fatigue and weakness; apparently going to attempt clear liquid diet today; no other reported issues or events at this time. Exam Narrative: General: WD/WN female in NAD Heart: normal S1 and S2; no rub Lungs: diminished at bases with a few crackles/rhonchi Abdomen: soft, mild TTP nondistended, positive bowel sounds Extremities: no cyanosis or clubbing; no edema Skin: warm and dry Objective Data Vital Signs Vital Signs: Vital Signs Temp Pulse Resp BP Pulse Ox 01/11/22 09:05 90 20 01/11/22 08:54 95 01/11/22 08:53 90 01/11/22 04:30 36.4 C 89 18 109/50 L 96 01/10/22 21:48 92 01/10/22 21:46 95 01/10/22 21:39 90 20 01/10/22 20:00 95 01/10/22 19:33 36.5 C 89 18 117/54 L 92 01/10/22 14:27 96 90 01/10/22 13:42 36.6 C 102 H 16 92/56 L 91 Intake/Output Intake/Output: Intake & Output 01/08/22 01/09/22 01/10/22 01/11/22 23:59 23:59 23:59 23:59 Intake Total 1900 2799.2 2474 865 Output Total 1625 2750 2875 600 Balance 275 49.2 -401 265 Meds/Results Medications: Active Medications Generic Name Dose Route Start Last Admin Trade Name Freq PRN Reason Stop Dose Admin Albuterol 2.5 mg 01/10/22 12:00 01/11/22 08:53 Albuterol Sulfate Neb 2.5 Mg/0.5 Ml Inh INHALATION 2.5 mg [id number] LISY Administration B
[2022-01-11 12:13] LABS: Glucose Point of Care 296 mg/dl (65-105)
[2022-01-11] MEDS: FAT EMULSIONS IV 20% 250 ML 20.83 ML IVPB (13:25)
[2022-01-11] MEDS: AMINO ACIDS 5%/D15W/E-LYTES/CA 2,000 ML with MULTIVITAMINS-12 INJ VIAL 1 2.5 ML, MULTIV... 60 ML IV CONT (13:26)
[2022-01-11] MEDS: POTASSIUM CHLORIDE INJ 40 MEQ in SODIUM CHLORIDE 0.9% IV 500 ML 130 MEQ IVPB (13:27)
--- NOTE | 2022-01-11 13:38 | PC.NURSE ---
On 01/11/22, the student, Maurizio Ragland, provided care and completed [facility] documentation on this patient. I have reviewed the student's documentation and agree with the findings.
[2022-01-11 14:38] LABS: Vancomycin Trough 14.3 ug/mL (10.0-20.0)
--- NOTE | 2022-01-11 16:10 | P.PNIM_ITS ---
Progress Note: A&P Assessment and Plan (1) SBO (small bowel obstruction): Code(s): K56.609 - Unspecified intestinal obstruction, unspecified as to partial versus complete obstruction Status: Acute Assessment and Plan: Patient presented with abdominal pain, bloating, nausea, vomiting ongoing for 10 days * History of multiple prior abdominal surgeries * SBO did not resolve with NG decompression * Small-bowel follow-through on 01/08/2020 to showed persistent SBO and contrast did not reach the colon * On 01/08/2022 patient had exploratory laparotomy with adhesiolysis and release of SBO with right hemicolectomy and ileocolic anastomosis * Appreciate general surgery consultation management of this issue * Continue TPN (started on 01/07/2022) * NG was removed today * Continue clear liquid diet * Supportive care. Analgesics and antiemetics as needed. Encourage activity (2) Pneumonia: Code(s): J18.9 - Pneumonia, unspecified organism Status: Acute Assessment and Plan: On 01/06 patient developed new oxygen requirement and tachypnea * Stat CTA showed right middle lobe collapse with right lower lobe pneumonia * Appreciate pulmonology consultation * Sputum culture has grown out strep pneumoniae * Continue IV vancomycin, Zosyn, and azithromycin (started on 01/07). Final dose of azithromycin today * Supportive care * Currently maintaining adequate O2 sats on room air. She will need formal home O2 eval prior to discharge (3) Electrolyte abnormality: Code(s): E87.8 - Other disorders of electrolyte and fluid balance, not elsewhere classified Status: Acute Assessment and Plan: * Hypokalemia: Potassium is 3.1 today. Administer 40 mEq KCL * Hypomagnesemia: Magnesium 1.8. Administer 1 g IV magnesium sulfate * Hyponatremia: Initially felt to be due to dehydration and improved with fluids, however has declined again. Sodium is 125 today. May be multifactorial secondary to respiratory illness, decreased p.o. intake, TPN use. Appreciate nephrology consultation. Cortisol and TSH within normal limits. SPEP and UPEP pending (4) Diabetes mellitus: Qualifiers: Diabetes mellitus type: type 2 Diabetes mellitus rn long term care insulin use: with rn long term care use Diabetes mellitus complication status: without complication Qualified Code(s): E11.9 - Type 2 diabetes mellitus without complications; Z79.4 - terminal makeup operator (current) use of insulin Code(s): E11.9 - Type 2 diabetes mellitus without complications Status: Chronic Assessment and Plan: A1c is 8.9 * Blood sugars have been elevated * Continue Accu-Cheks, moderate dose sliding scale insulin, hypoglycemic protocol * Added 10 units Lantus during the daytime as patient was NPO so that this could be monitored closely. She is now tolerating clear liquids. * Monitor blood sugar trends and adjust insulin regimen as needed (5) Lung collapse: Code(s): J98.19 - Other pulmonary collapse Status: Acute Assessment and Plan: Imaging revealed right middle lobe collapse * Appreciate pulmonology consultation * Will need repeat imaging on outpatient follow-up (6) COPD (chronic obstructive pulmonary disease): Qualifiers: COPD type: COPD with acute exacerbation Qualified Code(s): J44.1 - Chronic obstructive pulmonary disease with (acute) exacerbation Code(s): J44.9 - Chronic obstructive pulmonary disease, unspecified Status: Chronic Assessment and Plan: Patient with history of asthma-COPD overlap * Appreciate pulmonology
--- NOTE | 2022-01-11 16:10 | PM.IMPN ---
Progress Note: A&P Assessment and Plan (1) SBO (small bowel obstruction): Code(s): K56.609 - Unspecified intestinal obstruction, unspecified as to partial versus complete obstruction Status: Acute Assessment and Plan: Patient presented with abdominal pain, bloating, nausea, vomiting ongoing for 10 days History of multiple prior abdominal surgeries SBO did not resolve with NG decompression Small-bowel follow-through on 01/08/2020 to showed persistent SBO and contrast did not reach the colon On 01/08/2022 patient had exploratory laparotomy with adhesiolysis and release of SBO with right hemicolectomy and ileocolic anastomosis Appreciate general surgery consultation management of this issue Continue TPN (started on 01/07/2022) NG was removed today Continue clear liquid diet Supportive care. Analgesics and antiemetics as needed. Encourage activity (2) Pneumonia: Code(s): J18.9 - Pneumonia, unspecified organism Status: Acute Assessment and Plan: On 01/06 patient developed new oxygen requirement and tachypnea Stat CTA showed right middle lobe collapse with right lower lobe pneumonia Appreciate pulmonology consultation Sputum culture has grown out strep pneumoniae Continue IV vancomycin, Zosyn, and azithromycin (started on 01/07). Final dose of azithromycin today Supportive care Currently maintaining adequate O2 sats on room air. She will need formal home O2 eval prior to discharge (3) Electrolyte abnormality: Code(s): E87.8 - Other disorders of electrolyte and fluid balance, not elsewhere classified Status: Acute Assessment and Plan: Hypokalemia: Potassium is 3.1 today. Administer 40 mEq KCL Hypomagnesemia: Magnesium 1.8. Administer 1 g IV magnesium sulfate Hyponatremia: Initially felt to be due to dehydration and improved with fluids, however has declined again. Sodium is 125 today. May be multifactorial secondary to respiratory illness, decreased p.o. intake, TPN use. Appreciate nephrology consultation. Cortisol and TSH within normal limits. SPEP and UPEP pending (4) Diabetes mellitus: Qualifiers: Diabetes mellitus type: type 2 Diabetes mellitus correction insulin use: with correction use Diabetes mellitus complication status: without complication Qualified Code(s): E11.9 - Type 2 diabetes mellitus without complications; Z79.4 - care home (current) use of insulin Code(s): E11.9 - Type 2 diabetes mellitus without complications Status: Chronic Assessment and Plan: A1c is 8.9 Blood sugars have been elevated Continue Accu-Cheks, moderate dose sliding scale insulin, hypoglycemic protocol Added 10 units Lantus during the daytime as patient was NPO so that this could be monitored closely. She is now tolerating clear liquids. Monitor blood sugar trends and adjust insulin regimen as needed (5) Lung collapse: Code(s): J98.19 - Other pulmonary collapse Status: Acute Assessment and Plan: Imaging revealed right middle lobe collapse Appreciate pulmonology consultation Will need repeat imaging on outpatient follow-up (6) COPD (chronic obstructive pulmonary disease): Qualifiers: COPD type: COPD with acute exacerbation Qualified Code(s): J44.1 - Chronic obstructive pulmonary disease with (acute) exacerbation Code(s): J44.9 - Chronic obstructive pulmonary disease, unspecified Status: Chronic Assessment and Plan: Patient with history of asthma-COPD overlap Appreciate pulmonology consultation Continue albuterol and ipratropium nebs (7) TATUM (obstructive sleep apnea): Code(s): G47.33 - Obstructive sleep apnea (adult) (pediatric) Status: Chronic Assessment and Plan: At home on auto PAP 5-15 CPAP not continued during admission while patient had NG NG tube has now been removed. We will resume her on the hospital machine at home settings
[2022-01-11 16:42] LABS: Glucose Point of Care 211 mg/dl (65-105)
[2022-01-11] MEDS: INSULIN ASPART (*BKC) 100 UNITS/ML SUB-Q (18:17)
--- NOTE | 2022-01-11 19:57 | PC.NURSE ---
very small light brown BM, pt ambulated in hallway, approx 100ft.
[2022-01-11 20:28] LABS: Glucose Point of Care 128 mg/dl (65-105)
[2022-01-11] MEDS: HYDROcodone/acetaminophen (*CRX) 5-325 MG TABLET 1 TAB PO (22:39)
[2022-01-12] VITALS (11 sets, daily range): BP systolic 111–139; BP diastolic 59–67; PULSE 82–95; RESP 14–20; TEMP 35.7–37.6; O2SAT 85–97
[2022-01-12] MEDS: CENTRAL LINE FLUSH 10 ML IV PUSH ×3 (05:29→20:31)
[2022-01-12] MEDS: oxyCODONE HCL (*CRX) 5 MG TAB IR PO ×3 (06:21→20:30)
[2022-01-12] MEDS: oxyCODONE/ACETAMINOPHEN (*CRX) 5-325 MG TABLET 1 TABLET PO ×2 (06:22→14:03)
[2022-01-12 08:04] LABS: Basophils Percent Auto 0.4 % (0.2-1.2); Eosinophils Absolute Auto 0.3 K/mm3 (0-0.3); Eosinophils Percent Auto 2.7 % (0-4.4); Hematocrit 34.6 % (37.0-47.0); Hemoglobin 11.1 g/dL (12.0-15.0); Immature Granulocyte Absolute 0.06 K/mm3 (0.00-0.031); Immature Granulocyte Percent A 0.6 % (0-0.5); Lymphocytes Absolute Auto 0.97 K/mm3 (0.9-3.2); Lymphocytes Percent Auto 9.8 % (18.3-44.2); Mean Corpuscular HGB Conc 32.1 g/dl (32-36); Mean Corpuscular Hemoglobin 27.4 pg (26-34); Mean Corpuscular Volume 85.4 fl (80-100); Mean Platelet Volume 10.2 fl (7.4-10.4); Monocytes Absolute Auto 0.7 K/mm3 (0.1-0.6); Monocytes Percent Auto 7.2 % (2.6-8.5); Neutrophils Absolute Auto 7.8 K/mm3 (1.3-6.7); Neutrophils Percent Auto 79.3 % (45.5-73.1); Platelet Count Result 174 k/mm3 (150-375); Red Blood Count 4.05 M/mm3 (4.2-5.4); Red Cell Distribution Width 12.9 % (11.5-14.5); White Blood Count 9.9 K/mm3 (4.5-10.0)
[2022-01-12 08:07] LABS: Alanine Aminotransferase 19 U/L (4-35); Albumin Level 2.6 g/dL (3.5-5.1); Alkaline Phosphatase 83 U/L (38-126); Anion Gap 2 mmol/L (8-16); Aspartate Amino Transferase 35 U/L (14-36); Bilirubin,Total 0.4 mg/dL (0.2-1.3); Blood Urea Nitrogen 15 mg/dL (7-17); Calcium 7.1 mg/dL (8.4-10.2); Carbon Dioxide 37 mmol/L (22-30); Chloride 86 mmol/L (98-107); Estimated CRCL calculation 73 ml/min; Estimated Glomerular Filt Rate > 60; Glucose 228 mg/dL (65-110); Magnesium 1.6 mg/dL (1.6-2.3); Phosphorus 2.7 mg/dL (2.5-4.5); Potassium 2.9 mmol/L (3.4-5.0); Sodium 125 mmol/L (137-145)
[2022-01-12 08:08] LABS: Triglycerides 223 mg/dL (<150)
[2022-01-12 08:22] LABS: Glucose Point of Care 237 mg/dl (65-105)
[2022-01-12] MEDS: BUDESONIDE RESPULE NEB 0.5 MG/2 ML AMP INHALATION ×2 (08:36→20:31)
[2022-01-12] MEDS: IPRATROPIUM BR 0.02% INH SOLN 0.5 MG/2.5 ML VIAL INHALATION ×2 (08:36→20:31)
[2022-01-12] MEDS: ALBUTEROL SULFATE NEB 2.5 MG/0.5 ML INH INHALATION ×2 (08:36→20:31)
[2022-01-12] MEDS: ENOXAPARIN 40 MG/0.4 ML SYRINGE SUB-Q (08:37)
[2022-01-12] MEDS: PANTOPRAZOLE SODIUM IV 40 MG VIAL IV PUSH (08:38)
[2022-01-12] MEDS: NICOTINE (*PBKC) 14 MG PATCH 1 PATCH TRANSDERM (08:38)
[2022-01-12] MEDS: INSULIN GLARGINE (*BKC) 100 UNITS/ML 11 UNITS SUB-Q (08:39)
[2022-01-12] MEDS: INSULIN ASPART (*BKC) 100 UNITS/ML SUB-Q ×2 (08:40→17:06)
[2022-01-12] MEDS: FLUTICASONE PROPIONATE 0.05% NA SPR 16 GM BTL (*BKC) 1 SPRAY NASAL ×2 (08:42→17:06)
[2022-01-12] MEDS: POTASSIUM CHLORIDE 20 MEQ PACKET (FOR LIQUID) PO (09:38)
[2022-01-12] MEDS: MAGNESIUM SULF 2 GM/WATER 50ML 2 GM/50 ML BAG IVPB (09:39)
--- NOTE | 2022-01-12 10:45 | PM.PNGS ---
Progress Note: A&P Assessment and Plan (1) SBO (small bowel obstruction): Code(s): K56.609 - Unspecified intestinal obstruction, unspecified as to partial versus complete obstruction Status: Acute Assessment and Plan: Continues to improve. Bowels are moving. Advance to full liquids. Stop TPN. Encouraged increasing activity. (2) Protein calorie malnutrition: Qualifiers: Protein-calorie malnutrition severity: unspecified severity Qualified Code(s): E46 - Unspecified protein-calorie malnutrition Code(s): E46 - Unspecified protein-calorie malnutrition Status: Acute Assessment and Plan: Advancing to full liquids. Will stop TPN. (3) Pneumonia: Code(s): J18.9 - Pneumonia, unspecified organism Status: Acute (4) COPD (chronic obstructive pulmonary disease): Qualifiers: COPD type: COPD with acute exacerbation Qualified Code(s): J44.1 - Chronic obstructive pulmonary disease with (acute) exacerbation Code(s): J44.9 - Chronic obstructive pulmonary disease, unspecified Status: Chronic (5) Tobacco dependence: Code(s): F17.200 - Nicotine dependence, unspecified, uncomplicated Status: Chronic (6) Diabetes mellitus: Qualifiers: Diabetes mellitus complication status: without complication Diabetes mellitus [facility] insulin use: with termite helper use Diabetes mellitus type: type 2 Qualified Code(s): E11.9 - Type 2 diabetes mellitus without complications; Z79.4 - termite control servicer (current) use of insulin Code(s): E11.9 - Type 2 diabetes mellitus without complications Status: Chronic Additional Plan I have discussed the patient's case and plan of care with Dr. Marie. Subjective Subjective Date/Time Seen: 01/12/22 10:45 Post Op day: 4 Patient reports: no new complaints, feels better, tolerating liquids well, voiding w/o difficulty (since chu removed), flatus, bowel movement and afebrile Interval history: Chart reviewed, pt seen and examined. She reports feeling better today. Reports two BMs yesterday and one overnight. No nausea, vomiting, or bloating. Pain well controlled. Pt was able to ambulate in the halls yesterday. Review of Systems Review of Systems: All systems reviewed & are unremarkable except as noted in HPI and below Exam Const: General: no acute distress and awake GI: Inspection: non-distended and incision (intact with tu, scant serosanguineous drainage near umbilicus) GI Palp: Yes Soft to palpation, Yes Tenderness to palpation present (GI) (incisional) and No Guarding due to palpation present (GI) Auscultation: normal bowel sounds Neuro: General: moves all extremities and no focal motor deficits Extrem: General: no calf tenderness and no edema Psych: Insight: Good insight present (Psych) Judgement: Good judgement present (Psych) Objective Data Vital Signs Vital Signs: Vital Signs - 24 hr 01/11/22 14:00 01/11/22 20:00 01/11/22 21:17 Temperature 97.4 F L Pulse Rate 100 88 Respiratory Rate 20 18 Blood Pressure 114/55 L Pulse Oximetry 93 96 01/11/22 21:18 01/11/22 21:26 01/11/22 22:00 Temperature 97.5 F L Pulse Rate 87 96 Respiratory Rate 18 18 Blood Pressure 126/51 L Pulse Oximetry 93 90 01/11/22 23:35 01/12/22 02:50 01/12/22 06:00 Temperature 96.2 F L Pulse Rate 88 82 95 Respiratory Rate 19 16 20 Blood Pressure 111/59 L Pulse Oximetry 95 96 85 L 01/12/22 08:30 01/12/22 08:37 01/12/22 08:38 Temperature Pulse Rate 84 88 Respiratory Rate 18 18 Blood Pressure Pulse Oximetry 95 Intake/Output Intake/Output: Intake & Output 01/09/22 01/10/22 01/11/22 01/12/22 23:59 23:59 23:59 23:59 Intake Total 2799.2 2474 5120 770 Output Total 2750 2875 600 Balance 49.2 -401 4520 770 Meds/Results Medications: Active Medications Generic Name Dose Route Start Last Admin Trade Name Freq PRN Reason Stop Dose Admin Albuterol 2.5
[2022-01-12] MEDS: POTASSIUM CHLORIDE INJ 40 MEQ in SODIUM CHLORIDE 0.9% IV 500 ML 130 MEQ IVPB (10:55)
[2022-01-12 11:35] LABS: Glucose Point of Care 177 mg/dl (65-105)
--- NOTE | 2022-01-12 12:21 | P.PNNP_ITS ---
Progress Note: A&P Assessment and Plan (1) Hyponatremia: Code(s): E87.1 - Hypo-osmolality and hyponatremia Status: Acute Assessment and Plan: * seems acute on chronic * sodium running ~ 133 - 134 in 2019 * on admission, was 126 but normalized with IVF hydration arguing dehydration * however, sodium started to decline again on 01/08 -- stable at 125 for the past 48 hours * multiple issues likely playing a role: * known COPD * pneumonia * diminished oral intake/TPN use * D5W carrier fluid use with IV K+ supplementation and antibiotics * check urine electrolytes * TSH and cortisol okay; SPEP and UPEP pending * pharmacy has changed all carrier fluid for PRN IV meds/electrolytes/antibiotics to normal saline * if possible, add/increase sodium chloride content in TPN also * still suspect as oral intake improves, her sodium will get better * follow trend of repeat sodium levels (2) SBO (small bowel obstruction): Code(s): K56.609 - Unspecified intestinal obstruction, unspecified as to partial versus complete obstruction Status: Acute Assessment and Plan: * no resolution with NG tube decompression * complicated by multiple prior abdominal surgeries * s/p exploratory laparotomy with adhesiolysis and release of SBO with right hemicolectomy and ileocolic anastomosis (on 01/08/22) * Surgery following * diet being advanced * analgesics and antiemetics as needed (3) Pneumonia: Code(s): J18.9 - Pneumonia, unspecified organism Status: Acute Assessment and Plan: * as noted by imaging to date * complicated by known COPD * Pulmonary following * antibiotics * follow culture date * supplemental oxygen PRN (4) COPD exacerbation: Code(s): J44.1 - Chronic obstructive pulmonary disease with (acute) exacerbation Status: Acute Assessment and Plan: * continue nebulizer treatments * supportive therapy (5) Diabetes mellitus: Qualifiers: Diabetes mellitus complication status: without complication 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 Subjective Date/time seen: 03/31/22 12:21 Seems to be doing better today -- still with some abdominal pain around midline abdominal incision; working with therapy and has been ambulating better; diet is slowly being advanced as tolerated and she is taking it slow; passing flatus; no acute distress voiced at this time. Exam Narrative: General: WD/WN female in NAD Heart: normal S1 and S2; no rub Lungs: diminished at bases but seems better Abdomen: soft, mild TTP nondistended, positive bowel sounds Extremities: no cyanosis or clubbing; no edema Skin: warm and intact Objective Data Vital Signs Vital Signs: Vital Signs Temp Pulse Resp BP Pulse Ox 01/12/22 08:38 88 18 01/12/22 08:37 95 01/12/22 08:30 84 18 01/12/22 08:00 90 01/12/22 06:00 35.7 C L 95 20 111/59 L 85 L 01/12/22 02:50 82 16 96 01/11/22 23:35 88 19 95 01/11/22 22:00 36.4 C L 96 18 126/51
--- NOTE | 2022-01-12 12:21 | PM.PNNEP ---
Progress Note: A&P Assessment and Plan (1) Hyponatremia: Code(s): E87.1 - Hypo-osmolality and hyponatremia Status: Acute Assessment and Plan: seems acute on chronic sodium running ~ 133 - 134 in 2019 on admission, was 126 but normalized with IVF hydration arguing dehydration however, sodium started to decline again on 01/08 -- stable at 125 for the past 48 hours multiple issues likely playing a role: known COPD pneumonia diminished oral intake/TPN use D5W carrier fluid use with IV K+ supplementation and antibiotics check urine electrolytes TSH and cortisol okay; SPEP and UPEP pending pharmacy has changed all carrier fluid for PRN IV meds/electrolytes/antibiotics to normal saline if possible, add/increase sodium chloride content in TPN also still suspect as oral intake improves, her sodium will get better follow trend of repeat sodium levels (2) SBO (small bowel obstruction): Code(s): K56.609 - Unspecified intestinal obstruction, unspecified as to partial versus complete obstruction Status: Acute Assessment and Plan: no resolution with NG tube decompression complicated by multiple prior abdominal surgeries s/p exploratory laparotomy with adhesiolysis and release of SBO with right hemicolectomy and ileocolic anastomosis (on 01/08/22) Surgery following diet being advanced analgesics and antiemetics as needed (3) Pneumonia: Code(s): J18.9 - Pneumonia, unspecified organism Status: Acute Assessment and Plan: as noted by imaging to date complicated by known COPD Pulmonary following antibiotics follow culture date supplemental oxygen PRN (4) COPD exacerbation: Code(s): J44.1 - Chronic obstructive pulmonary disease with (acute) exacerbation Status: Acute Assessment and Plan: continue nebulizer treatments supportive therapy (5) Diabetes mellitus: Qualifiers: Diabetes mellitus complication status: without complication Diabetes mellitus [facility] insulin use: with [facility] use Diabetes mellitus type: type 2 Qualified Code(s): E11.9 - Type 2 diabetes mellitus without complications; Z79.4 - moth exterminator (current) use of insulin Code(s): E11.9 - Type 2 diabetes mellitus without complications Status: Chronic Assessment and Plan: follow accuchecks glycemic control Will continue to follow. Subjective Date/time seen: 01/12/22 12:21 Seems to be doing better today -- still with some abdominal pain around midline abdominal incision; working with therapy and has been ambulating better; diet is slowly being advanced as tolerated and she is taking it slow; passing flatus; no acute distress voiced at this time. Exam Narrative: General: WD/WN female in NAD Heart: normal S1 and S2; no rub Lungs: diminished at bases but seems better Abdomen: soft, mild TTP nondistended, positive bowel sounds Extremities: no cyanosis or clubbing; no edema Skin: warm and intact Objective Data Vital Signs Vital Signs: Vital Signs Temp Pulse Resp BP Pulse Ox 01/12/22 08:38 88 18 01/12/22 08:37 95 01/12/22 08:30 84 18 01/12/22 08:00 90 01/12/22 06:00 35.7 C L 95 20 111/59 L 85 L 01/12/22 02:50 82 16 96 01/11/22 23:35 88 19 95 01/11/22 22:00 36.4 C L 96 18 126/51 L 90 01/11/22 21:26 87 18 01/11/22 21:18 93 01/11/22 21:17 88 18 01/11/22 20:00 96 01/11/22 14:00 36.3 C L 100 20 114/55 L 93 Intake/Output Intake/Output: Intake & Output 01/09/22 01/10/22 01/11/22 01/12/22 23:59 23:59 23:59 23:59 Intake Total 2799.2 2474 5120 770 Output Total 2750 2875 600 Balance 49.2 -401 4520 770 Meds/Results Medications: Active Medications Generic Name Dose Route Start Last Admin Trade Name Freq PRN Reason Stop Dose Admin Albuterol 2.5 mg 01/10/22 12:00 01/12/22 08:36 Albuterol Sulfate Neb 2.5 Mg/0.5 Ml Inh IN
--- NOTE | 2022-01-12 14:38 | PC.NURSE ---
On 01/12/22, the student, [Ivanna Veliz ], provided care and completed [facility] documentation on this patient. I have reviewed the student's documentation and agree with the findings.
[2022-01-12 15:18] LABS: Potassium 3.9 mmol/L (3.4-5.0)
--- NOTE | 2022-01-12 15:21 | P.PNIM_ITS ---
Progress Note: A&P Assessment and Plan (1) SBO (small bowel obstruction): Code(s): K56.609 - Unspecified intestinal obstruction, unspecified as to partial versus complete obstruction Status: Acute Assessment and Plan: Patient presented with abdominal pain, bloating, nausea, vomiting ongoing for 10 days * History of multiple prior abdominal surgeries * SBO did not resolve with NG decompression * Small-bowel follow-through on 01/08/2020 to showed persistent SBO and contrast did not reach the colon * On 01/08/2022 patient had exploratory laparotomy with adhesiolysis and release of SBO with right hemicolectomy and ileocolic anastomosis * Appreciate general surgery consultation and management of this issue * NG removed on 01/11/2022 * TPN discontinued today * Advanced to full liquid diet * Supportive care. Analgesics and antiemetics as needed. Encourage activity (2) Pneumonia: Code(s): J18.9 - Pneumonia, unspecified organism Status: Acute Assessment and Plan: On 01/06 patient developed new oxygen requirement and tachypnea * Stat CTA showed right middle lobe collapse with right lower lobe pneumonia * Appreciate pulmonology consultation * Sputum culture has grown out strep pneumoniae * Continue IV vancomycin and Zosyn for pulmonology recommendations. Completed azithromycin on 01/11 * Supportive care * Currently maintaining adequate O2 sats on room air. She will need formal home O2 eval prior to discharge (3) Electrolyte abnormality: Code(s): E87.8 - Other disorders of electrolyte and fluid balance, not elsewhere classified Status: Acute Assessment and Plan: * Hypokalemia: Potassium 2.9 today. Received 40 mEq IV KCL and 20 mEq p.o. KCl. Potassium improved to 3.9 * Hypomagnesemia: Magnesium 1.6. Received 2 g IV magnesium sulfate. * Suspect potassium and magnesium will improve now that diet is being advanced * Hyponatremia: Initially felt to be due to dehydration and improved with fluids, however sodium level subsequently declined again. Sodium is 125 today. May be multifactorial secondary to respiratory illness, decreased p.o. intake, TPN use. Appreciate nephrology consultation. Cortisol and TSH within normal limits. SPEP and UPEP pending. Carrier fluid for IV meds to be changed to normal saline rather than D5W (4) Diabetes mellitus: Qualifiers: Diabetes mellitus complication status: without complication Diabetes mellitus prison insulin use: with manager chemistry use Diabetes mellitus type: type 2 Qualified Code(s): E11.9 - Type 2 diabetes mellitus without complications; Z79.4 - detention (current) use of insulin Code(s): E11.9 - Type 2 diabetes mellitus without complications Status: Chronic Assessment and Plan: A1c is 8.9 * Blood sugars have been elevated ranging from 170-230 today * Continue Accu-Cheks, moderate dose sliding scale insulin, hypoglycemic protocol * Continue Lantus 10 units q.a.m. (Added during the daytime as patient was NPO so that this could be monitored closely) She is no longer NPO and can consider addition of scheduled insulin with meals if blood sugar remains elevated * Monitor blood sugar trends and adjust insulin regimen as needed (5) Lung collapse: Code(s): J98.19 - Other pulmonary collapse Status: Acute Assessment and Plan: Imaging revealed right middle lobe collapse * Appreciate pulmonology consultation * Will need repeat imaging on outpatient follow-up (6) COPD (chronic obstructive pulmonary disease): Qualifiers: COPD t
--- NOTE | 2022-01-12 15:21 | PM.IMPN ---
Progress Note: A&P Assessment and Plan (1) SBO (small bowel obstruction): Code(s): K56.609 - Unspecified intestinal obstruction, unspecified as to partial versus complete obstruction Status: Acute Assessment and Plan: Patient presented with abdominal pain, bloating, nausea, vomiting ongoing for 10 days History of multiple prior abdominal surgeries SBO did not resolve with NG decompression Small-bowel follow-through on 01/08/2020 to showed persistent SBO and contrast did not reach the colon On 01/08/2022 patient had exploratory laparotomy with adhesiolysis and release of SBO with right hemicolectomy and ileocolic anastomosis Appreciate general surgery consultation and management of this issue NG removed on 01/11/2022 TPN discontinued today Advanced to full liquid diet Supportive care. Analgesics and antiemetics as needed. Encourage activity (2) Pneumonia: Code(s): J18.9 - Pneumonia, unspecified organism Status: Acute Assessment and Plan: On 01/06 patient developed new oxygen requirement and tachypnea Stat CTA showed right middle lobe collapse with right lower lobe pneumonia Appreciate pulmonology consultation Sputum culture has grown out strep pneumoniae Continue IV vancomycin and Zosyn for pulmonology recommendations. Completed azithromycin on 01/11 Supportive care Currently maintaining adequate O2 sats on room air. She will need formal home O2 eval prior to discharge (3) Electrolyte abnormality: Code(s): E87.8 - Other disorders of electrolyte and fluid balance, not elsewhere classified Status: Acute Assessment and Plan: Hypokalemia: Potassium 2.9 today. Received 40 mEq IV KCL and 20 mEq p.o. KCl. Potassium improved to 3.9 Hypomagnesemia: Magnesium 1.6. Received 2 g IV magnesium sulfate. Suspect potassium and magnesium will improve now that diet is being advanced Hyponatremia: Initially felt to be due to dehydration and improved with fluids, however sodium level subsequently declined again. Sodium is 125 today. May be multifactorial secondary to respiratory illness, decreased p.o. intake, TPN use. Appreciate nephrology consultation. Cortisol and TSH within normal limits. SPEP and UPEP pending. Carrier fluid for IV meds to be changed to normal saline rather than D5W (4) Diabetes mellitus: Qualifiers: Diabetes mellitus complication status: without complication Diabetes mellitus emt intermediate insulin use: with emt intermediate use Diabetes mellitus type: type 2 Qualified Code(s): E11.9 - Type 2 diabetes mellitus without complications; Z79.4 - terminal operator (current) use of insulin Code(s): E11.9 - Type 2 diabetes mellitus without complications Status: Chronic Assessment and Plan: A1c is 8.9 Blood sugars have been elevated ranging from 170-230 today Continue Accu-Cheks, moderate dose sliding scale insulin, hypoglycemic protocol Continue Lantus 10 units q.a.m. (Added during the daytime as patient was NPO so that this could be monitored closely) She is no longer NPO and can consider addition of scheduled insulin with meals if blood sugar remains elevated Monitor blood sugar trends and adjust insulin regimen as needed (5) Lung collapse: Code(s): J98.19 - Other pulmonary collapse Status: Acute Assessment and Plan: Imaging revealed right middle lobe collapse Appreciate pulmonology consultation Will need repeat imaging on outpatient follow-up (6) COPD (chronic obstructive pulmonary disease): Qualifiers: COPD type: COPD with acute exacerbation Qualified Code(s): J44.1 - Chronic obstructive pulmonary disease with (acute) exacerbation Code(s): J44.9 - Chronic obstructive pulmonary disease, unspecified Status: Chronic Assessment and Plan: Patient with history of asthma-COPD overlap Appreciate pulmonology consultation Continue albuterol and ipratropium nebs (7) TATUM (obs
[2022-01-12 16:57] LABS: Glucose Point of Care 229 mg/dl (65-105)
--- NOTE | 2022-01-12 17:39 | PCRCNOTE ---
Window of time for administration has passed. See next scheduled administration.
[2022-01-12] MEDS: guaiFENesin 12 HR 600 MG TABCR PO (20:30)
[2022-01-12 21:03] LABS: Glucose Point of Care 199 mg/dl (65-105)
[2022-01-13] VITALS (8 sets, daily range): PULSE 79–87; RESP 17–20; O2SAT 90–94
[2022-01-13] MEDS: oxyCODONE HCL (*CRX) 5 MG TAB IR PO ×2 (03:57→10:56)
[2022-01-13] MEDS: oxyCODONE/ACETAMINOPHEN (*CRX) 5-325 MG TABLET 1 TABLET PO ×2 (03:58→10:57)
[2022-01-13] MEDS: CENTRAL LINE FLUSH 10 ML IV PUSH ×2 (06:17→13:40)
[2022-01-13] MEDS: HYDROmorphone HCL INJ (*CRX) 1 MG/ML SYR IV PUSH ×2 (06:32→13:39)
[2022-01-13 06:38] LABS: Anion Gap 5 mmol/L (8-16); Blood Urea Nitrogen 11 mg/dL (7-17); Calcium 7.2 mg/dL (8.4-10.2); Carbon Dioxide 33 mmol/L (22-30); Chloride 92 mmol/L (98-107); Estimated CRCL calculation 75 ml/min; Estimated Glomerular Filt Rate > 60; Glucose 233 mg/dL (65-110); Phosphorus 2.7 mg/dL (2.5-4.5); Potassium 3.5 mmol/L (3.4-5.0); Sodium 130 mmol/L (137-145)
[2022-01-13 07:53] LABS: Glucose Point of Care 160 mg/dl (65-105)
[2022-01-13] MEDS: ALBUTEROL SULFATE NEB 2.5 MG/0.5 ML INH INHALATION (08:16)
[2022-01-13] MEDS: IPRATROPIUM BR 0.02% INH SOLN 0.5 MG/2.5 ML VIAL INHALATION (08:16)
[2022-01-13] MEDS: BUDESONIDE RESPULE NEB 0.5 MG/2 ML AMP INHALATION (08:17)
[2022-01-13 08:53] LABS: Magnesium 1.8 mg/dL (1.6-2.3)
[2022-01-13] MEDS: INSULIN GLARGINE (*BKC) 100 UNITS/ML 11 UNITS SUB-Q (09:32)
[2022-01-13] MEDS: FLUTICASONE PROPIONATE 0.05% NA SPR 16 GM BTL (*BKC) 1 SPRAY NASAL (09:33)
[2022-01-13] MEDS: PANTOPRAZOLE SODIUM IV 40 MG VIAL IV PUSH (09:33)
[2022-01-13] MEDS: NICOTINE (*PBKC) 14 MG PATCH 1 PATCH TRANSDERM (09:33)
[2022-01-13] MEDS: guaiFENesin 12 HR 600 MG TABCR PO (09:33)
[2022-01-13] MEDS: ENOXAPARIN 40 MG/0.4 ML SYRINGE SUB-Q (09:33)
[2022-01-13] MEDS: polyethylene glycoL 3350 17 GM POWD.PACK PO (09:34)
[2022-01-13] MEDS: FLUTICASONE/SALMETEROL 115-21 MCG INHALER 1 PUFF 2 PUFF INHALATION (09:57)
[2022-01-13 11:25] LABS: Glucose Point of Care 180 mg/dl (65-105)
--- NOTE | 2022-01-13 11:39 | HOMEO2EVAL ---
Evaluation was performed at [facility] Home Oxygen Evaluation RC: Home Oxygen (O2) Evaluation Start: 01/13/22 09:47 Freq: ONCE Status: Active Protocol: RPE Activity Type Activity Date Activity User E-Sign Co-Sign Detail Recorded Client Recorded Date Recorded By Document 01/13/22 10:30 [email or web address] [id number] 01/13/22 11:39 DJO Document 01/13/22 10:35 [email or web address] [id number] 01/13/22 11:39 DJO Document 01/13/22 10:45 [email or web address] [email or web address] 01/13/22 11:39 DJO 01/13/22 01/13/22 01/13/22 10:30 10:35 10:45 Home O2 Evaluation Test Phase Resting Exercise Resting Oxygen Delivery Room Air Room Air Room Air Pulse Oximetry (90-100 %) 92 90 92 Pulse Rate (60-100 beats/min) 79 86 82 Ambulation Distance (meters) 150 Home Oxygen Evaluation Comments NO O2 NEEDED AT REST AND WITH ACTIVITY Treatment Charges O2 Evaluation - Inpatient
--- NOTE | 2022-01-13 11:39 | PCRCNOTE ---
HOME O2 EVAL DONE, NO O2 NEEDED AT REST AND WITH ACTIVITY
--- NOTE | 2022-01-13 12:01 | PM.PNGS ---
Progress Note: A&P Assessment and Plan (1) SBO (small bowel obstruction): Code(s): K56.609 - Unspecified intestinal obstruction, unspecified as to partial versus complete obstruction Status: Acute Assessment and Plan: Ok to discharge today Discharge instructions discussed with patient Follow up in 2 weeks Subjective Subjective Date/Time Seen: 01/13/22 12:01 Interval history: Bowels moving. Tolerating regular diet. No nausea or vomiting. Exam GI: Inspection: non-distended and incision (intact with tu) GI Palp: Yes Soft to palpation, No Tenderness to palpation present (GI) and No Guarding due to palpation present (GI) Auscultation: normal bowel sounds Objective Data Vital Signs Vital Signs: Vital Signs - 24 hr 01/12/22 14:20 01/12/22 20:35 01/12/22 20:43 Temperature 36.1 C L Pulse Rate 95 87 90 Respiratory Rate 16 18 18 Blood Pressure Pulse Oximetry 93 01/12/22 20:45 01/12/22 21:16 01/13/22 00:21 Temperature 37.6 C H Pulse Rate 83 82 Respiratory Rate 14 20 Blood Pressure 139/67 Pulse Oximetry 94 97 94 01/13/22 00:23 01/13/22 08:00 01/13/22 08:14 Temperature Pulse Rate 87 87 Respiratory Rate 17 17 Blood Pressure Pulse Oximetry 94 93 01/13/22 08:18 01/13/22 10:30 01/13/22 10:35 Temperature Pulse Rate 79 86 Respiratory Rate Blood Pressure Pulse Oximetry 93 92 90 01/13/22 10:45 Temperature Pulse Rate 82 Respiratory Rate Blood Pressure Pulse Oximetry 92 Intake/Output Intake/Output: Intake & Output 01/10/22 01/11/22 01/12/22 01/13/22 23:59 23:59 23:59 23:59 Intake Total 2474 5120 1840 170 Output Total 2875 600 Balance -401 4520 1840 170 Meds/Results Medications: Active Medications Generic Name Dose Route Start Last Admin Trade Name Freq PRN Reason Stop Dose Admin Dextrose 12.5 gm 01/04/22 21:01 Dextrose 50% 25 Gm/50 Ml Syringe IV PUSH PRN PRN Hypoglycemia Protocol Enoxaparin Sodium 40 mg 01/09/22 09:00 01/13/22 09:33 Enoxaparin 40 Mg/0.4 Ml Syringe SUB-Q 40 mg DAILY LISY Administration Fluticasone Propionate 1 spray 01/05/22 17:00 01/13/22 09:33 Fluticasone Propionate 0.05% Na Spr 16 Gm Btl (*Bkc) NASAL 1 spray BID LISY Administration Glucagon 1 mg 01/04/22 21:01 Glucagon For Inj 1 Mg Vial IM PRN PRN Hypoglycemia Protocol Glucose 15 gm 01/04/22 21:01 Glucose Oral Gel 15 Gm Of Glucse In 37.5 Gm Tube PO PRN PRN Hypoglycemia Protocol Guaifenesin 600 mg 01/12/22 21:00 01/13/22 09:33 Guaifenesin 12 Hr 600 Mg Tabcr PO 600 mg Q12HR LISY Administration Hydralazine HCl 10 mg 01/04/22 22:36 Hydralazine Hcl 20 Mg/Ml Vial IV PUSH Q6H PRN Hypertension Hydromorphone HCl 1 mg 01/11/22 22:21 01/13/22 06:32 Hydromorphone Hcl Inj (*Crx) 1 Mg/Ml Syr IV PUSH 1 mg Q4H PRN Administration Pain Rated 7-10 Dextrose 1,000 mls @ 100 mls/hr 01/04/22 21:01 Dextrose 5% 1,000 Ml IVPB PRN PRN Hypoglycemia Protocol Ibuprofen 800 mg in 200 mls @ 400 mls/hr 01/05/22 15:16 Caldolor 800 Mg/200 Ml IVPB Q6H PRN Pain Rated 1-3 Dextrose 1,000 mls @ 50 mls/hr 01/07/22 13:33 Dextrose 10% IV CONT .Q20H PRN if PN is interrupted Piperacillin Sod/Tazobactam 3.375 gm in 50 mls @ 100 mls/hr 01/11/22 18:00 01/13/22 06:16 Sod 3.375 gm/ Sodium Chloride IVPB 100 mls/hr Q6HR LISY Administration Vancomycin HCl 1,000 mg/ 1,000 mg in 250 mls @ 250 mls/hr 01/12/22 02:00 01/13/22 01:43 Sodium Chloride IVPB 250 mls/hr Q12H LISY Administration Insulin Aspart 3 - 6 units 01/11/22 17:00 01/13/22 08:04 Insulin Aspart (*Bkc) 100 Units/Ml SUB-Q Not Given TIDWM LISY Protocol Insulin Glargine 11 units 01/11/22 09:00 01/13/22 09:32 Insulin Glargine (*Bk) 100 Units/Ml 0.15 units/kg (11 units) 11 units SUB-Q Administration QAM LISY Yaritza
--- NOTE | 2022-01-13 12:08 | PCNFU ---
Addendum entered by Radha Sheth RD, LDN 01/13/22 12:17: Will monitor weight, meds, labs, BM, and skin every 5 days Original Note: Nutrition Follow-Up Complete: Alerted GI function as related to SBO as evidenced by TPN Goal:Meet estimated nutritional needs Pt is progressing towards goal. Continue with current goal at this time. Pt current nutrition is Diabetic Carb Consistent/Soft and Bite Sized, L6 diet Last recorded weight is 80.5 kg, up 3.5kg from last reported weight on 01/12/22. Recommend re-weighing prior to discharge. Bowel Motility: +BM reported 01/13/22 Labs Reviewed: CO2 33, Na 130, Cl 92, Ca 7.2, Glu 233 Meds Noted: Lovenox, Mucinex, Dilaudid, Lantus, Percocet, Protonix, Piperacillin/Tazobactam, Miralax, Vancomycin Skin: Abdomen wound Additional Notes: TPN discontinued 01/12/22. Current nutrition is a Diabetic Carb Consistent/Soft and Bite Sized, L6 diet with reported intake of 100%, 50% x2, 80%, and 90%. Pt appears to be tolerating diet orders with adequate intake. Agree with diet orders at this time. Plans for pt to discharge home today (01/13/22). Will continue to follow if pt is not discharged. Will monitor weight,meds, labs, BM, and skin every Sunday and Sunday.
--- NOTE | 2022-01-13 14:00 | P.DS_ITS ---
DS: Admitting Diagnosis Discharge Date 01/13/2022 <Erin Chinchilla PA-C - Last Filed: 01/25/22 13:02> Admitting Diagnosis Small-bowel obstruction <Erin Chinchilla PA-C - Last Filed: 01/25/22 13:02> DS: Discharge Diagnosis Discharge Diagnosis (1) SBO (small bowel obstruction): Code(s): K56.609 - Unspecified intestinal obstruction, unspecified as to partial versus complete obstruction <Erin Chinchilla PA-C - Last Filed: 01/25/22 13:02> Status: Acute <Erin Chinchilla PA-C - Last Filed: 01/25/22 13:02> Assessment and Plan: Patient presented with abdominal pain, bloating, nausea, vomiting ongoing for 10 days * History of multiple prior abdominal surgeries * SBO did not resolve with NG decompression * Small-bowel follow-through on 01/08/2020 to showed persistent SBO and contrast did not reach the colon * On 01/08/2022 patient had exploratory laparotomy with adhesiolysis and release of SBO with right hemicolectomy and ileocolic anastomosis * Appreciate general surgery consultation and management of this issue * NG removed on 01/11/2022 * TPN discontinued 01/12/2022 * Patient was slowly advanced to a soft and bite size diet and tolerated this well * Bowel function returned and pain improved with supportive care * Continued increased activity encouraged * Follow-up with General surgery in 2 weeks <Erin Chinchilla PA-C - Last Filed: 01/25/22 13:02> (2) Pneumonia: Code(s): J18.9 - Pneumonia, unspecified organism <Erin Chinchilla PA-C - Last Filed: 01/25/22 13:02> Status: Acute <Erin Chinchilla PA-C - Last Filed: 01/25/22 13:02> Assessment and Plan: On 01/06 patient developed new oxygen requirement and tachypnea * Stat CTA showed right middle lobe collapse with right lower lobe pneumonia * Appreciate pulmonology consultation * Sputum culture with growth of strep pneumoniae * Received 7 days of IV vancomycin and Zosyn per pulmonology recommendations. Completed azithromycin on 01/11 * Continue p.o. cefdinir 300 mg b.i.d. through 01/17/2022 for full course of treatment * She maintained adequate O2 sats on room air. Home O2 eval performed on 01/13/2022 with no oxygen requirement at rest or with activity <Erin Chinchilla PA-C - Last Filed: 01/25/22 13:02> (3) Electrolyte abnormality: Code(s): E87.8 - Other disorders of electrolyte and fluid balance, not elsewhere classified <Erin Chinchilla PA-C - Last Filed: 01/25/22 13:02> Status: Acute <Erin Chinchilla PA-C - Last Filed: 01/25/22 13:02> Assessment and Plan: * Hypokalemia: Potassium was decreased due to NPO diet/poor p.o. intake. Resolved with supplementation. Potassium did improve once patient was able to advance her diet. Continue with home potassium chloride supplement 10 mEq PO b.i.d. * Hypomagnesemia: As above, likely due to NPO diet/poor p.o. intake. Resolved with supplementation * Hyponatremia: Initially felt to be due to dehydration and improved with fluids, however sodium level subsequently declined again down to 125. [place] to be multifactorial secondary to respiratory illness, decreased p.o. intake, TPN use. Cortisol and TSH within normal limits. SPEP and UPEP pending. This was managed per Nephrology and resolved once TPN was discontinued and patient was eating. Sodium was 130 at time of discharge * Repeat BMP and magnesium in 1 week to ensure electrolytes remain stable <Erin Chinchilla PA-C - Last Filed: 01/25/22 13:02> (4) Diabetes mellitus: Qualifiers: Diabetes mellitus complication stat
--- NOTE | 2022-01-13 14:00 | PM.DS ---
DS: Admitting Diagnosis Discharge Date 01/13/2022 <Erin Chinchilla PA-C - Last Filed: 01/25/22 13:02> Admitting Diagnosis Small-bowel obstruction <Erin Chinchilla PA-C - Last Filed: 01/25/22 13:02> DS: Discharge Diagnosis Discharge Diagnosis (1) SBO (small bowel obstruction): Code(s): K56.609 - Unspecified intestinal obstruction, unspecified as to partial versus complete obstruction <Erin Chinchilla PA-C - Last Filed: 01/25/22 13:02> Status: Acute <Erin Chinchilla PA-C - Last Filed: 01/25/22 13:02> Assessment and Plan: Patient presented with abdominal pain, bloating, nausea, vomiting ongoing for 10 days History of multiple prior abdominal surgeries SBO did not resolve with NG decompression Small-bowel follow-through on 01/08/2020 to showed persistent SBO and contrast did not reach the colon On 01/08/2022 patient had exploratory laparotomy with adhesiolysis and release of SBO with right hemicolectomy and ileocolic anastomosis Appreciate general surgery consultation and management of this issue NG removed on 01/11/2022 TPN discontinued 01/12/2022 Patient was slowly advanced to a soft and bite size diet and tolerated this well Bowel function returned and pain improved with supportive care Continued increased activity encouraged Follow-up with General surgery in 2 weeks <Erin Chinchilla PA-C - Last Filed: 01/25/22 13:02> (2) Pneumonia: Code(s): J18.9 - Pneumonia, unspecified organism <Erin Chinchilla PA-C - Last Filed: 01/25/22 13:02> Status: Acute <BROOKE Hua Last Filed: 01/25/22 13:02> Assessment and Plan: On 01/06 patient developed new oxygen requirement and tachypnea Stat CTA showed right middle lobe collapse with right lower lobe pneumonia Appreciate pulmonology consultation Sputum culture with growth of strep pneumoniae Received 7 days of IV vancomycin and Zosyn per pulmonology recommendations. Completed azithromycin on 01/11 Continue p.o. cefdinir 300 mg b.i.d. through 01/17/2022 for full course of treatment She maintained adequate O2 sats on room air. Home O2 eval performed on 01/13/2022 with no oxygen requirement at rest or with activity <Erin Chinchilla PA-C - Last Filed: 01/25/22 13:02> (3) Electrolyte abnormality: Code(s): E87.8 - Other disorders of electrolyte and fluid balance, not elsewhere classified <BROOKE Hua Last Filed: 01/25/22 13:02> Status: Acute <Erin Chinchilla PA-C - Last Filed: 01/25/22 13:02> Assessment and Plan: Hypokalemia: Potassium was decreased due to NPO diet/poor p.o. intake. Resolved with supplementation. Potassium did improve once patient was able to advance her diet. Continue with home potassium chloride supplement 10 mEq PO b.i.d. Hypomagnesemia: As above, likely due to NPO diet/poor p.o. intake. Resolved with supplementation Hyponatremia: Initially felt to be due to dehydration and improved with fluids, however sodium level subsequently declined again down to 125. [place] to be multifactorial secondary to respiratory illness, decreased p.o. intake, TPN use. Cortisol and TSH within normal limits. SPEP and UPEP pending. This was managed per Nephrology and resolved once TPN was discontinued and patient was eating. Sodium was 130 at time of discharge Repeat BMP and magnesium in 1 week to ensure electrolytes remain stable <Erin Chinchilla PA-C - Last Filed: 01/25/22 13:02> (4) Diabetes mellitus: Qualifiers: Diabetes mellitus complication status: without complication Diabetes mellitus assistant terminal manager insulin use: with group home use Diabetes mellitus type: type 2 Qualified Code(s): E11.9 - Type 2 diabetes mellitus without complications; Z79.4 - retirement (current) use of insulin <Erin Chinchilla PA-C - Last Filed: 01/25/22 13:02> Code(s): E11.9 - Type 2 diabetes mellitus with
[2022-01-13 15:44] LABS: Chloride Rand Ur <20 mmol/L (32-290); Creatinine Random Urine 46 mg/dL (20-275)
[2022-01-16 08:40] LABS: Creatinine, Random Urine 48 mg/dL (20-275); Total Protein/Creatinine Ratio 1813 mg/g creat (21-161)
[2022-01-20 06:43] LABS: Albumin 1.9 g/dL (3.8-4.8); Alpha 1 Globulin 0.8 g/dL (0.2-0.3); Beta 1 Globulin 0.4 g/dL (0.4-0.6); Gamma Globulin 0.9 g/dL (0.8-1.7); Protein, Total 5.3 g/dL (6.1-8.1)
== END 2022-01-13 17:25 | disposition home or self-care (01) | DRG 231 ==
LOC: ANHED 18:32 → ANH3MEDSUR 21:50
PROVIDERS: Anesthesiology; Internal Medicine; Internal Medicine Nephrology; Physician Assistant; Surgery; Admitting Provider Internal Medicine; Emergency Provider Emergency Medicine; PCP Family Medicine; Visit Provider Family Medicine
PROC: 0DTF0ZZ Resection of Right Large Intestine, Open Approach (ICD-10-PCS; CPT 49000; principal; 2022-01-08 07:30)
DX: K56.50 Intestinal adhesions [bands], unspecified as to partial versus complete obstruction (principal); K63.1 Perforation of intestine (nontraumatic); J18.9 Pneumonia, unspecified organism; D83.9 Common variable immunodeficiency, unspecified; E87.1 Hypo-osmolality and hyponatremia; E83.42 Hypomagnesemia; E86.0 Dehydration; J44.0 Chronic obstructive pulmonary disease with (acute) lower respiratory infection; Z20.822 Contact with and (suspected) exposure to COVID-19; G47.33 Obstructive sleep apnea (adult) (pediatric); G25.81 Restless legs syndrome; E78.5 Hyperlipidemia, unspecified; E03.9 Hypothyroidism, unspecified; E11.9 Type 2 diabetes mellitus without complications; J98.19 Other pulmonary collapse; I10 Essential (primary) hypertension; F41.9 Anxiety disorder, unspecified; F17.210 Nicotine dependence, cigarettes, uncomplicated; K43.2 Incisional hernia without obstruction or gangrene; E87.6 Hypokalemia; Z79.82 Long term (current) use of aspirin; Z79.4 Long term (current) use of insulin; Z79.84 Long term (current) use of oral hypoglycemic drugs; Z86.73 Personal history of transient ischemic attack (TIA), and cerebral infarction without residual deficits; Z90.49 Acquired absence of other specified parts of digestive tract; Z90.710 Acquired absence of both cervix and uterus; E66.9 Obesity, unspecified; Z68.31 Body mass index [BMI] 31.0-31.9, adult
CPT/HCPCS: 36415; 36569; 71045; 71046; 71275; 74018; 74177; 74240; 74248; 80048; 80053; 80202; 81001; 81050; 82436; 82533; 82570; 82948; 83690; 83735; 84100; 84132; 84155; 84156; 84165; 84166; 84295; 84300; 84443; 84466; 84478; 85025; 85027; 85610; 85730; 87070; 87077; 87186; 87205; 87426; 87804; 88300; 88307; 93005; 93970; 94618; 94640; 94667; 94668; 94762; 96374; 96375; 97161; 97165; 99285; A9270; C1751; C9113; C9803; J0131; J0456; J0696; J1170; J1650; J1815; J2250; J2270; J2405; J2543; J2704; J2710; J3010; J3370; J3475; J3480; J7030; J7040; J7042; J7050; J7120; Q9967; U0003; U0005

== ENCOUNTER 2022-04-19 11:17 | Outpatient (CLI) | payer OTHER, SELFPAY ==
--- NOTE | ~2022-04-19 | CT_ITS ---
EXAMINATION: CT diagnostic chest wo con DATE: 04/19/2022 11:46 INDICATION: Solitary pulmonary nodule TECHNIQUE: Computed tomography (CT) of the chest was performed without intravenous contrast. The dose -length product (DLP) was 91.11 mGy-cm. Automated exposure control and iterative reconstruction techn ique were employed. COMPARISON: 01/07/2022, 05/12/2018 FINDINGS: There is mild emphysema. The previously described groundglass nodule of the right upper lob e is no longer evident, consistent with resolved infection/inflammation. There is a chronic subpleura l nodule of the right lower lobe. Right middle lobe collapse and right lower lobe pneumonia have reso lved. No pleural effusion or pneumothorax. No pathologically enlarged thoracic lymph nodes are identi fied. The heart size is normal. Calcified pulmonary nodules and calcified subcarinal and right hilar lymph nodes are consistent with old granulomatous disease. There is mild thoracic spondylosis. IMPRESSION: 1. Resolved right upper lobe nodule, right middle lobe collapse, and right lower lobe pneumonia. Reviewed, dictated and finalized at location B. IMPRESSION: 1. Resolved right upper lobe nodule, right middle lobe collapse, and right lowe r lobe pneumonia.
== END 2022-04-19 11:18 | disposition home or self-care (01) ==
PROVIDERS: PCP Family Medicine; Visit Provider Nurse Practitioner Family
DX: R91.1 Solitary pulmonary nodule (principal)
CPT/HCPCS: 71250; 72220; 73564

== ENCOUNTER 2022-04-19 11:26 | Outpatient (CLI) | payer OTHER, SELFPAY ==
--- NOTE | ~2022-04-19 | XR_ITS ---
XR knee RT min 4V 04/19/2022 12:04 Indication: Right knee pain Procedure: 4 views right knee Comparison: No prior studies for comparison. Findings: No fracture, subluxation or dislocation. Osteopenia. No significant joint effusion. There i s atherosclerosis. There is atherosclerosis. Osteopenia. Impression: 1: No acute bone or joint abnormality. Reviewed, dictated and finalized at location A. Impression: 1: No acute bone or joint abnormality.
--- NOTE | ~2022-04-19 | XR_ITS ---
EXAMINATION: XR sacrum coccyx min 2V INDICATION: Coccydynia TECHNIQUE: Three views of the sacrum and coccyx are obtained. COMPARISON: 12/21/2011 FINDINGS: There are changes of L4-S1 fusion. No fracture is identified. There is chronic anterolisthe sis of L5 on S1. The coccyx has a stable appearance when compared to the prior examination. Phlebolit hs are noted in the pelvis. IMPRESSION: 1. No acute osseous abnormality. Reviewed, dictated and finalized at location B.
--- NOTE | ~2022-04-19 | XR_ITS ---
EXAMINATION: XR knee LT min 4V DATE: 04/19/2022 12:04 INDICATION: Left knee pain TECHNIQUE: Four views of the left knee were obtained. COMPARISON: 06/23/2021 FINDINGS: Alignment is normal. No fracture or osteochondral lesion. 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 There is moderate osteoarthritis of the medial compartment and mild osteoarthritis of the lateral compartment. No joint effusion/synovitis. Calcified atherosclerosis is noted. IMPRESSION: 1. Osteoarthritis without acute osseous abnormality. Reviewed, dictated and finalized at location B.
== END 2022-04-19 11:27 | disposition home or self-care (01) ==
PROVIDERS: PCP Family Medicine
DX: M17.12 Unilateral primary osteoarthritis, left knee (principal)
CPT/HCPCS: 72220; 73564

== ENCOUNTER 2022-06-23 07:40 | Outpatient (CLI) | payer OTHER, SELFPAY ==
--- NOTE | ~2022-06-23 | XR_ITS ---
EXAMINATION: XR chest 2V DATE: 06/23/2022 08:15 INDICATION: Shortness of breath TECHNIQUE: PA and lateral views of the chest are obtained. COMPARISON: None available FINDINGS: The lungs are free of acute opacities. No pleural effusion or pneumothorax. The cardiomedia stinal silhouette is normal. There is moderate thoracic spondylosis. There are changes of anterior fu medina procedure in the lower cervical spine. IMPRESSION: 1. No acute cardiopulmonary abnormality. Reviewed, dictated and finalized at location B.
[2022-06-23 08:08] LABS: Basophils Percent Auto 0.5 % (0.2-1.2); Eosinophils Absolute Auto 0.2 K/mm3 (0-0.3); Eosinophils Percent Auto 2.5 % (0-4.4); Hematocrit 42.7 % (37.0-47.0); Hemoglobin 13.8 g/dL (12.0-15.0); Immature Granulocyte Absolute 0.04 K/mm3 (0.00-0.031); Immature Granulocyte Percent A 0.5 % (0-0.5); Lymphocytes Absolute Auto 1.72 K/mm3 (0.9-3.2); Lymphocytes Percent Auto 22.5 % (18.3-44.2); Mean Corpuscular HGB Conc 32.3 g/dl (32-36); Mean Corpuscular Hemoglobin 28.3 pg (26-34); Mean Corpuscular Volume 87.7 fl (80-100); Mean Platelet Volume 9.3 fl (7.4-10.4); Monocytes Absolute Auto 0.4 K/mm3 (0.1-0.6); Monocytes Percent Auto 4.7 % (2.6-8.5); Neutrophils Absolute Auto 5.3 K/mm3 (1.3-6.7); Neutrophils Percent Auto 69.3 % (45.5-73.1); Platelet Count Result 156 k/mm3 (150-375); Red Blood Count 4.87 M/mm3 (4.2-5.4); Red Cell Distribution Width 14.4 % (11.5-14.5); White Blood Count 7.6 K/mm3 (4.5-10.0)
[2022-06-23 08:26] LABS: Alanine Aminotransferase 31 U/L (6-35); Alkaline Phosphatase 93 U/L (38-126); Anion Gap 9 mmol/L (8-16); Aspartate Amino Transferase 35 U/L (14-36); Bilirubin,Total 0.3 mg/dL (0.2-1.3); Blood Urea Nitrogen 19 mg/dL (7-17); Calcium 9.5 mg/dL (8.4-10.2); Carbon Dioxide 26 mmol/L (22-30); Chloride 104 mmol/L (98-107); Cholesterol 261 mg/dL (0-200); Estimated Glomerular Filt Rate > 60; Glucose 85 mg/dL (65-110); HDL Direct 60 mg/dL; Potassium 4.3 mmol/L (3.4-5.0); Sodium 139 mmol/L (137-145); Triglycerides 339 mg/dL (<150)
[2022-06-23 08:37] LABS: Immunoglobulin G 1120 mg/dL (700-1600); LDL Cholesterol Direct 112 mg/dL
[2022-06-23 08:57] LABS: Free T4 Free Thyroxine 0.86 ng/mL (0.78-2.19); Total Triiodothyronine (T3) 1.16 NG/ML (0.97-1.69); Vitamin D 25 Hydroxy 23.1 ng/mL
[2022-06-23 09:14] LABS: Hemoglobin A1C 7.4 % (<5.7)
[2022-06-23 09:17] LABS: Creatinine Urine 31.1 mg/dL
[2022-06-23 09:23] LABS: MALB Creatinine Ratio 566.6 mg/g (0-30); Microalbumin Urine Random 176.2 mg/L (0-16.7)
[2022-06-26 14:57] LABS: Immunoglobulin G, Serum 1194 mg/dL (600-1640); Immunoglobulin G1 670 mg/dL (382-929); Immunoglobulin G2 400 mg/dL (241-700); Immunoglobulin G3 34 mg/dL (22-178); Immunoglobulin G4 29.7 mg/dL (4.0-86.0)
== END 2022-06-23 07:41 | disposition home or self-care (01) ==
PROVIDERS: PCP Family Medicine; Visit Provider Nurse Practitioner Family
DX: E78.5 Hyperlipidemia, unspecified (principal); I10 Essential (primary) hypertension; E11.9 Type 2 diabetes mellitus without complications; E55.9 Vitamin D deficiency, unspecified
CPT/HCPCS: 36415; 71046; 80053; 80061; 82043; 82306; 82784; 82787; 83036; 84439; 84443; 84480; 85025

== ENCOUNTER 2022-08-19 10:56 | Outpatient (CLI) | payer OTHER, SELFPAY ==
--- NOTE | ~2022-08-19 | XR_ITS ---
XR hip LT min 2V DATE: 08/19/2022 11:20 INDICATION: Left hip pain. No known injury. TECHNIQUE: AP, lateral and crosstable lateral views of left hip COMPARISON: 02/23/2013 left hip FINDINGS: Pedicle screws and rods are noted in the lumbosacral area. No fracture, dislocation, avascular necrosis or bone destruction of the left hip is detected. Left hi p joint space appears well preserved. Left common femoral and femoral artery calcifications. IMPRESSION: No significant abnormality of left hip Reviewed, dictated and finalized at location A. [employer]
== END 2022-08-19 10:57 | disposition home or self-care (01) ==
PROVIDERS: PCP Family Medicine
DX: M25.552 Pain in left hip (principal)
CPT/HCPCS: 73502

== ENCOUNTER 2023-01-13 08:58 | Outpatient (CLI) | payer OTHER, SELFPAY ==
[2023-01-13 09:46] LABS: Basophils Percent Auto 0.4 % (0.2-1.2); Eosinophils Absolute Auto 0.2 K/mm3 (0-0.3); Eosinophils Percent Auto 2.9 % (0-4.4); Hematocrit 43.5 % (37.0-47.0); Hemoglobin 13.9 g/dL (12.0-15.0); Immature Granulocyte Absolute 0.01 K/mm3 (0.00-0.031); Immature Granulocyte Percent A 0.2 % (0-0.5); Lymphocytes Absolute Auto 1.05 K/mm3 (0.9-3.2); Mean Corpuscular Hemoglobin 28.3 pg (26-34); Mean Corpuscular Volume 88.6 fl (80-100); Mean Platelet Volume 9.5 fl (7.4-10.4); Monocytes Absolute Auto 0.3 K/mm3 (0.1-0.6); Monocytes Percent Auto 5.1 % (2.6-8.5); Neutrophils Absolute Auto 3.8 K/mm3 (1.3-6.7); Neutrophils Percent Auto 71.4 % (45.5-73.1); Platelet Count Result 171 k/mm3 (150-375); Red Blood Count 4.91 M/mm3 (4.2-5.4); White Blood Count 5.3 K/mm3 (4.5-10.0)
[2023-01-13 09:56] LABS: Alanine Aminotransferase 18 U/L (6-35); Albumin Level 4.2 g/dL (3.5-5.1); Alkaline Phosphatase 67 U/L (38-126); Anion Gap 6 mmol/L (8-16); Aspartate Amino Transferase 23 U/L (14-36); Bilirubin,Total 0.4 mg/dL (0.2-1.3); Blood Urea Nitrogen 14 mg/dL (7-17); Calcium 8.7 mg/dL (8.4-10.2); Carbon Dioxide 28 mmol/L (22-30); Chloride 106 mmol/L (98-107); Cholesterol 156 mg/dL (0-200); Estimated Glomerular Filt Rate > 60; Glucose 127 mg/dL (65-110); HDL Direct 61 mg/dL; Potassium 4.4 mmol/L (3.4-5.0); Sodium 140 mmol/L (137-145); Triglycerides 89 mg/dL (<150)
[2023-01-13 09:57] LABS: Hemoglobin A1C 7.6 % (<5.7)
[2023-01-13 10:07] LABS: LDL Cholesterol Direct 77 mg/dL
[2023-01-13 10:25] LABS: Thyroid Stimulating Hormone 0.749 uIU/mL (0.465-4.680); Total Triiodothyronine (T3) 1.19 NG/ML (0.97-1.69)
[2023-01-13 10:48] LABS: Creatinine Urine 37.8 mg/dL
[2023-01-13 11:01] LABS: Folic Acid 18.4 ng/mL (2.76->20)
[2023-01-13 11:25] LABS: MALB Creatinine Ratio 1681.7 mg/g (0-30); Microalbumin Urine Random 635.7 mg/L (0-16.7)
[2023-01-13 13:05] LABS: Iron 91 ug/dL (37-170)
[2023-01-13 13:23] LABS: Free T4 Free Thyroxine 0.95 ng/mL (0.78-2.19)
[2023-01-13 14:54] LABS: Vitamin D 25 Hydroxy 38.5 ng/mL
[2023-01-18 13:44] LABS: Vitamin B6 17.1 ng/mL (2.1-21.7)
[2023-01-19 20:50] LABS: Vitamin B2 50.2 nmol/L (6.2-39.0)
== END 2023-01-13 08:59 | disposition home or self-care (01) ==
PROVIDERS: Nurse Practitioner Adult Health; PCP Family Medicine; Visit Provider Family Medicine
DX: E78.5 Hyperlipidemia, unspecified (principal); E11.9 Type 2 diabetes mellitus without complications; E55.9 Vitamin D deficiency, unspecified; R53.83 Other fatigue; R53.1 Weakness; I10 Essential (primary) hypertension
CPT/HCPCS: 36415; 80053; 80061; 82043; 82306; 82607; 82728; 82746; 83036; 83540; 84207; 84252; 84439; 84443; 84446; 84480; 85025

== ENCOUNTER 2023-01-27 18:19 | Observation (INO) | payer OTHER, SELFPAY ==
[2023-01-27] VITALS (20 sets, daily range): BP systolic 115–159; BP diastolic 71–73; PULSE 71–89; RESP 13–22; TEMP 36.6; O2SAT 89–98; BMI 25.6
--- NOTE | ~2023-01-27 | XR_ITS ---
EXAMINATION: XR abdomen obstructive series DATE: 01/28/2023 15:23 INDICATION: Right-sided abdominal pain TECHNIQUE: Frontal supine and upright views of the abdomen were obtained. COMPARISON: 01/08/2022 FINDINGS: No free intraperitoneal gas. Cholecystectomy clips in right upper quadrant. No dilated loops of gas-f illed bowel to suggest obstruction. L4-S1 posterior spinal fusion with bilateral vertical jenny and ped icle screw fixation. Couple retained disconnected leads projecting over the lumbosacral junction pote ntially for bone stimulation related to effusion. Calcified nodules in the right lower lung zone cons istent with old granulomatous disease. The visualized mid to lower lungs are otherwise clear. Heart s ize is normal. IMPRESSION: 1. No free intraperitoneal gas or dilated gas-filled loops of bowel to suggest obstruction. Reviewed, dictated and finalized at location A.
--- NOTE | ~2023-01-27 | XR_ITS ---
EXAMINATION: XR chest 2V DATE: 01/27/2023 21:20 INDICATION: Shortness of breath TECHNIQUE: PA and lateral views of the chest were obtained. COMPARISON: Chest radiograph dated 07/03/[address] dated 04/19/2022 FINDINGS: Calcified right middle lobe nodule and calcified mediastinal lymph node consistent with old granuloma tous disease. No other airspace opacities, pulmonary edema, pleural effusion or pneumothorax. The car diomediastinal silhouette is normal. Mild thoracic spondylosis. C5-C6 anterior spinal fusion with dusty te and screw fixation. IMPRESSION: 1. No acute cardiopulmonary disease. Reviewed, dictated and finalized at location A.
--- NOTE | ~2023-01-27 | US_ITS ---
US right upper quadrant DATE: 01/29/2023 08:41 INDICATION: Abdominal pain TECHNIQUE: Real-time and color flow imaging and Doppler analysis COMPARISON: 01/04/2022 CT abdomen pelvis FINDINGS: Mild surface nodularity of the liver suggests cirrhosis. Portal vein measures approximately 1.5 cm, borderline or dilated. No hepatic or pancreatic space-occupying mass lesion is evident. There is normal hepatopedal portal v enous flow direction. The gallbladder is surgically absent. The common bile duct measures 7.9 mm. IMPRESSION: Hepatic surface nodularity suggesting cirrhosis Portal vein measures up to 1.5 cm, suggesting portal venous hypertension Common bile duct 9 mm, which may be due to cholecystectomy. Recommend correlation with serum bilirubi n level Reviewed, dictated and finalized at Location A. Reviewed, dictated and finalized at location B. IMPRESSION: Hepatic surface nodularity suggesting cirrhosis Portal vein measures up to 1.5 cm, suggesting portal venous hypertension Common bile duct 9 mm, which may be due to cholecystectomy. Recommend correlati on with serum bilirubin level
--- NOTE | 2023-01-27 18:24 | ED.SOB ---
HPI - SOB/Dyspnea General Chief Complaint: Shortness of Breath/Dyspnea <BROOKE Kim Last Filed: 01/28/23 02:18> Stated Complaint: difficulty in breathing <BROOKE Kim Last Filed: 01/28/23 02:18> Time Seen by Provider: 01/27/23 18:24 <BROOKE Kim Last Filed: 01/28/23 02:18> Source: patient and old records reviewed <BROOKE Kim Last Filed: 01/28/23 02:18> Mode of arrival: EMS <BROOKE Kim Last Filed: 01/28/23 02:18> Limitations: no limitations <BROOKE Kim Last Filed: 01/28/23 02:18> History of Present Illness HPI Narrative: Patient is a 62 y/o female who presents to the ED via EMS with c/o SOB. Patient reports a history of asthma and COPD. She reports having upper respiratory symptoms, including a cough, congestion, rhinorrhea, sinus pressure for the last 2 weeks. She has been increasingly short of breath over the last 2 weeks, progressively worsening. She is on multiple medications for her COPD, including inhalers and nebulizers. She was started on prednisone on Sunday, and also recently switched from Trelegy to Bevespi. Patient sees Dr. Cash with pulmonology. Patient states breathing became worse today and she was unable to find any relief with her home therapies, which prompted her to call EMS. EMS gave a breathing treatment, IV mag, and Decadron en route to the ED. Patient denies any recent fever, CP, abdominal pain, N/V, lower extremity swelling. Patient was 89% on RA upon arrival to the ED. She does not use home O2. She still currently smokes 5-6 cigarettes per day. <BROOKE Kim Last Filed: 01/28/23 02:18> Related Data Home Medications: Home Medications Medication Instructions Recorded Confirmed atorvastatin 40 mg tablet 40 mg PO DAILY 09/18/19 01/27/23 famotidine 40 mg tablet 40 mg PO DAILY 09/18/19 01/27/23 fenofibrate 160 mg tablet 160 mg PO DAILY 09/18/19 01/27/23 levothyroxine 50 mcg tablet 50 mcg PO DAILY 09/18/19 01/27/23 metoprolol tartrate 50 mg tablet 25 mg PO BID 09/18/19 01/27/23 aspirin 81 mg tablet,delayed 81 mg PO DAILY 11/25/19 01/27/23 release estradiol 1 mg tablet 0.5 mg PO DAILY 05/04/20 01/27/23 potassium chloride 10 mEq 10 meq PO DAILY 05/04/20 01/27/23 tablet,extended release ropinirole 0.5 mg tablet 0.5 mg PO TID 05/04/20 01/27/23 oxycodone-acetaminophen 10 mg-325 1 tablet PO Q6H PRN pain 04/27/22 01/27/23 mg tablet immune glob G 40 gram/400 500 ml IV MONTHLY 06/26/22 01/27/23 mL(10%)-gly-IgA ave 46 mcg/mL injection soln (Gamunex-C) fluoxetine 20 mg tablet 20 mg PO DAILY 01/27/23 01/27/23 fluticasone fur. 100 mcg-umeclid 1 inh inhalation BID 01/27/23 01/27/23 62.5 mcg-vilant 25 mcg inhalat.powder (Trelegy Ellipta) gabapentin 400 mg capsule 400 mg PO BID 01/27/23 01/27/23 (Neurontin) montelukast 10 mg tablet 10 mg PO DAILY 01/27/23 01/27/23 (Singulair) sitagliptin phosphate 100 mg 100 mg PO DAILY 01/27/23 01/27/23 tablet (Januvia) <Marilin Bryant PA-C - Last Filed: 01/28/23 02:18> Allergies/Adverse Reactions: Allergies Allergy/AdvReac Type Severity Reaction Status Date / Time methylprednisolone Allergy Intermediate Hives Verified 01/27/23 18:55 Sulfa (Sulfonamide Allergy Unknown unknown Verified 01/27/23 18:55 Antibiotics) sulfamethoxazole Allergy Unknown unknown Verified 01/27/23 18:55 MIX IV'S IN NS 01/11/22 Allergy Severe SEE COMMENT Uncoded 01/27/23 18:55 <Marilin Bryant PA-C - Last Filed: 01/28/23 02:18> Review of Systems Review of Systems: CONSTITUTIONAL: Denies fever, chills, or sweats. ENT: See HPI. CARDIOVASCULAR: See HPI. RESPIRATORY: See HPI. GASTROINTESTINAL: Denies abdominal pain, nausea, vomiting, or diarrhea. GENITOURINARY: Denies dysuria or hematuria. SKIN: Denies rash or itching. MUSCULOSKELETAL: Denies back pain, joint pain, or myalgia. NEUROLOGIC: De
--- NOTE | 2023-01-27 18:28 | ECG_ITS ---
Measurements Intervals [place] Rate: 82 P: 87 AL: 175 QRS: 67 QRSD: 98 T: 70 QT: 357 QTc: 418 Interpretive Statements SINUS RHYTHM POSSIBLE LEFT ATRIAL ENLARGEMENT [-0.1mV P WAVE IN V1/V2] POOR R-WAVE PROGRESSION, CANNOT EXCLUDE AN OLD SEPTAL INFARCT COMPARED TO ECG 01/09/2022 09:27:23 NO SIGNIFICANT CHANGES Electronically Signed On 01-28-2023 9:15:20 CDT by Vivi Sexton M.D.
--- NOTE | 2023-01-27 18:28 | PC.NURSE ---
EDP at bedside to assess pt.
[2023-01-27 18:34] LABS: Basophils Percent Auto 0.2 % (0.2-1.2); Hematocrit 43.4 % (37.0-47.0); Hemoglobin 14.3 g/dL (12.0-15.0); Immature Granulocyte Absolute 0.03 K/mm3 (0.00-0.031); Immature Granulocyte Percent A 0.5 % (0-0.5); Lymphocytes Absolute Auto 0.52 K/mm3 (0.9-3.2); Lymphocytes Percent Auto 8.6 % (18.3-44.2); Mean Corpuscular HGB Conc 32.9 g/dl (32-36); Mean Corpuscular Hemoglobin 28.8 pg (26-34); Mean Corpuscular Volume 87.5 fl (80-100); Mean Platelet Volume 9.2 fl (7.4-10.4); Monocytes Absolute Auto 0.3 K/mm3 (0.1-0.6); Monocytes Percent Auto 4.9 % (2.6-8.5); Neutrophils Absolute Auto 5.2 K/mm3 (1.3-6.7); Neutrophils Percent Auto 85.8 % (45.5-73.1); Platelet Count Result 177 k/mm3 (150-375); Red Blood Count 4.96 M/mm3 (4.2-5.4); White Blood Count 6.1 K/mm3 (4.5-10.0)
[2023-01-27 18:47] LABS: Alanine Aminotransferase 26 U/L (6-35); Albumin Level 4.4 g/dL (3.5-5.1); Alkaline Phosphatase 92 U/L (38-126); Anion Gap 8 mmol/L (8-16); Aspartate Amino Transferase 26 U/L (14-36); Bilirubin,Total 0.4 mg/dL (0.2-1.3); Blood Urea Nitrogen 15 mg/dL (7-17); Calcium 9.1 mg/dL (8.4-10.2); Carbon Dioxide 32 mmol/L (22-30); Chloride 93 mmol/L (98-107); Estimated CRCL calculation 80 ml/min; Estimated Glomerular Filt Rate > 60; Glucose 257 mg/dL (65-110); Sodium 133 mmol/L (137-145)
--- NOTE | 2023-01-27 18:49 | PC.NURSE ---
RT at bedside to administer ordered breathing treatment.
[2023-01-27] MEDS: IPRATROPIUM BR 0.02% INH SOLN 0.5 MG/2.5 ML VIAL 1.5 MG INHALATION (18:51)
[2023-01-27] MEDS: LEVALBUTEROL NEB 1.25 MG/3 ML 2.5 MG INHALATION (18:51)
--- NOTE | 2023-01-27 19:12 | PC.NURSE ---
Patient report given to OSMANI Torrez. All questions answered and care of patient transferred.
[2023-01-27 19:13] LABS: Alveolar/Arterial O2 Gradient 67.7 mmHg; Base Excess ABG 4.8 mEq/l (+/-2.0); Carboxyhemoglobin 2.4 % THb (0-2.0); Fractional Inspired Oxygen 28 %; HCO3 ABG 29.5 mEq/l (22.0-26.0); Methemoglobin ABG 0.3 %THb (0-1.5); Oxygen Content ABG 19.7 %vol (16.0-22.0); Oxygen Saturation ABG 96.2 % (95.0-100.0); Oxyhemoglobin 93.2 % THb (90.0-100.0); PCO2 ABG 43.8 mmHg (35.0-45.0); PO2 ABG 80.3 mmHg (80.0-100.0); PO2 FiO2 Ratio Arterial Blood 2.87 %; Reduced Hemoglobin 4.1 %THb (0-5.0); pH ABG 7.446 (7.350-7.450)
[2023-01-27 19:14] LABS: Device NASAL CANNULA; Site Drawn RIGHT BRACHIAL
[2023-01-27 19:27] LABS: NT Pro B Type Natriuretic Pept 125 pg/mL (19.9-100); Troponin I < 0.012 ng/mL (0.000-0.034)
[2023-01-27 19:31] LABS: Influenza A QL RT-PCR Negative (Negative); Influenza B QL RT-PCR Negative (Negative); SARS-CoV-2 RNA PCR Negative
[2023-01-27 21:55] LABS: Troponin I < 0.012 ng/mL (0.000-0.034)
--- NOTE | 2023-01-27 22:40 | ADMGEN ---
This patient, Alma Anderson, was admitted to Medical Room 340-01. Patient/family oriented to hospital policies and general routines including ID bracelet, bed and alarms, visiting hours, pain management, procedures, bathroom and other care routines, personal items, smoking policy, room service/diet, and visiting hours. Information on how to activate the Rapid Response Team has been discussed. Patient/Family are encouraged to report perceived risks to care and to ask questions if they do not understand what they are told or what they should do.
[2023-01-27 22:50] LABS: Glucose Point of Care 243 mg/dl (65-105)
--- NOTE | 2023-01-27 23:46 | PM.IMHP ---
H&P: HPI History of Present Illness Date/Time: 01/27/23 23:46 Chief Complaint: Shortness of breath Narrative: This is a 62-year-old female with past medical history significant for COPD/asthma, although is a, tobacco abuse, restless leg syndrome. Patient presents to the emergency room due to shortness of breath for 2 weeks now not been able to control with home medications and nebulizers cough productive of yellow sputum, denies any fevers, chills or rigors, no nausea, no vomiting no abdominal pain has had poor appetite, worsening today. In emergency room patient received several nebulizer treatments which improved. Decision has been made to admit the patient for further evaluation management and treatment. A chest x-ray was reported as: FINDINGS: Calcified right middle lobe nodule and calcified mediastinal lymph node consistent with old granulomatous disease. No other airspace opacities, pulmonary edema, pleural effusion or pneumothorax. The cardiomediastinal silhouette is normal. Mild thoracic spondylosis. C5-C6 anterior spinal fusion with plate and screw fixation. IMPRESSION: 1. No acute cardiopulmonary disease. Review of Systems Review of Systems: Shortness of breath, cough productive of yellow sputum. Constitutional: Constitutional: Denies chills, Reports fatigue, Denies fever(s), Reports lethargy, Denies malaise, Denies night sweats, Reports poor appetite and Denies weakness Eyes: Eyes: Denies change in vision ENT: Denies dysphagia and Denies odynophagia Cardiovascular: Cardiovascular: Denies chest pain and Denies leg edema Respiratory: Respiratory: Reports change in phlegm color, Reports chest congestion, Reports cough and Reports wheezing Gastrointestinal: Gastrointestinal: Denies abdominal pain, Denies dyspepsia, Denies heartburn, Denies diarrhea, Denies nausea and Denies vomiting Genitourinary: Genitourinary: Denies dysuria Musculoskeletal: Musculoskeletal: Denies back pain, Denies joint swelling and Denies muscle weakness Integumentary/Breasts: Skin/Breast: Denies rash Neurologic: Denies focal weakness and Denies Sensory deficit (Neuro) Psychiatric: Psychiatric: Reports no additional psychiatric complaints and Reports as per HPI Endocrine: Endocrine: Denies cold intolerance, Denies flushing, Denies heat intolerance, Denies polyphagia, Denies polydipsia and Denies palpitations Hematologic/Lymphatic: Hematologic/Lymphatic: Reports no additional hematologic/lymphatic complaints and Reports as per HPI Allergic/Immunologic: Allergic/Immunologic: Reports no additional allergic/immunologic complaints and Reports as per HPI FOR[facility]LY [facility] Past Medical History Medical History Allergic rhinitis Asthma Asthma CVID (common variable immunodeficiency) Diabetes mellitus TATUM (obstructive sleep apnea) RLS (restless legs syndrome) Tobacco abuse Surgical History Surgical History H/O hemicolectomy 01/08/2022 Family History Family History Sibling Lung cancer Social History Social History (Updated 01/27/23 @ 18:52 by Marilin Bryant PA-C) Smoking status: Current every day smoker Tobacco type: cigarettes Second hand tobacco smoke exposure: Yes Alcohol intake: never Substance use: never Substance use type: does not use Lack of Transportation: No Lack of Food: Never True Current Housing: I Have Housing Concerned About Future Housing: No Difficulty Paying Gas/Electric Bills: No Difficulty Paying for Meds: No Currently Unemployed: No Education: Associate Degree Difficulty w/ Childcare or Family Care: No Gender identity (if verbalized by the patient): Female Spiritual care concerns: No Meds Home Medications and Allergies Home Medications Medication Instructions Recorded Confirmed Type atorvastatin
[2023-01-27] MEDS: AZITHROMYCIN IV 500 MG in SODIUM CHLORIDE 0.9% IV 250 ML 250 MG IVPB (23:54)
[2023-01-28] VITALS (23 sets, daily range): BP systolic 103–160; BP diastolic 56–67; PULSE 51–83; RESP 14–21; TEMP 36.4–37; O2SAT 91–96
[2023-01-28] MEDS: rOPINIRole HCL 0.5 MG TABLET PO ×4 (01:10→17:38)
[2023-01-28] MEDS: METOPROLOL TARTRATE 25 MG TABLET PO ×2 (01:10→08:25)
[2023-01-28] MEDS: GABAPENTIN 400 MG CAPSULE PO ×3 (01:10→20:47)
[2023-01-28] MEDS: traZODone HCL 50 MG TABLET 100 MG PO ×2 (01:10→20:47)
[2023-01-28] MEDS: oxyCODONE/ACETAMINOPHEN (*CRX) 10-325 MG TABLET 1 TAB PO ×4 (01:11→20:52)
[2023-01-28 01:17] LABS: Troponin I < 0.012 ng/mL (0.000-0.034)
[2023-01-28] MEDS: DEXAMETHASONE SOD PHOS INJ 4 MG/ML VIAL IV PUSH ×4 (05:55→23:08)
[2023-01-28] MEDS: LEVOTHYROXINE SODIUM 50 MCG TABLET PO (05:55)
[2023-01-28] MEDS: LEVALBUTEROL NEB 1.25 MG/3 ML 0.63 MG INHALATION ×3 (07:37→19:51)
[2023-01-28] MEDS: IPRATROPIUM BR 0.02% INH SOLN 0.5 MG/2.5 ML VIAL INHALATION ×3 (07:37→19:51)
[2023-01-28] MEDS: MONTELUKAST SODIUM 10 MG TABLET PO (08:24)
[2023-01-28] MEDS: ROFLUMILAST 500 MCG TABLET PO (08:24)
[2023-01-28] MEDS: FAMOTIDINE 20 MG TABLET 40 MG PO (08:25)
[2023-01-28] MEDS: FLUoxetine HCL 20 MG CAPSULE PO (08:25)
[2023-01-28] MEDS: FENOFIBRATE 160 MG TABLET PO (08:25)
[2023-01-28] MEDS: ASPIRIN 81 MG ENTERIC TABLET PO (08:26)
[2023-01-28] MEDS: ATORVASTATIN 40 MG TABLET PO (08:26)
[2023-01-28] MEDS: estradioL 0.5 MG TABLET PO (08:26)
[2023-01-28] MEDS: FLUTICASONE/UMECLIDIN/VILANTER 100-62.5-25 MCG ELLIPTA 1 PUFF INHALATION (08:31)
[2023-01-28] MEDS: ENOXAPARIN 40 MG/0.4 ML SYRINGE SUB-Q (09:09)
--- NOTE | 2023-01-28 12:20 | PM.IMPN ---
Progress Note: A&P Assessment and Plan (1) Acute respiratory failure with hypoxia: Code(s): J96.01 - Acute respiratory failure with hypoxia Status: Acute Assessment and Plan: Patient presents with SOB and found to be hypoxic on admission. ABG 7.45/44/80 on 2L. CXR was clear. She does have CVID. Whe was wheezing and felt she had COPD exacerbation. She was started on bronchodilators, steroids and abx. She is feeling better. Wean O2 as tolerated. (2) Acute exacerbation of chronic obstructive airways disease: Code(s): J44.1 - Chronic obstructive pulmonary disease with (acute) exacerbation Status: Acute Assessment and Plan: As above. Patient started on steroids, neb treatments and abx. Continue to monitor (3) TATUM (obstructive sleep apnea): Code(s): G47.33 - Obstructive sleep apnea (adult) (pediatric) Status: Chronic Assessment and Plan: Patient compliant with BiPAP. Continue the same. (4) RLS (restless legs syndrome): Code(s): G25.81 - Restless legs syndrome Status: Chronic Assessment and Plan: Stable. Continue home medications. (5) Tobacco dependence: Code(s): F17.200 - Nicotine dependence, unspecified, uncomplicated Status: Chronic Assessment and Plan: Patient was educated about the benefits of smoking cessation. (6) Abdominal pain: Code(s): R10.9 - Unspecified abdominal pain Status: Acute Assessment and Plan: Patient with RUQ pain. She has hx of SBO. Will check obstructive series. Check RUQ US. Check LFTs and Lipase. Subjective Date/time seen: 01/28/23 12:20 Interval history: 62yo female with asthma, CVID, TATUM and tobacco abuse here for SOB. SOB better. She did wear her bipap last night. Not on home O2. Persistent cough productive of yellow sputum. No n/v. No CP. Exam Narrative: AF 97.6 136/56 65 20 94% 2L Gen - NARD Chest - inspiratory and expiratory wheezes. nml RR CV - RRR S1/S2. Tele showing bradycardia Abd - RUQ pain. No HSM. +BS. Ext - No pedal edema Psych - Nml mood and affect Skin - Warm and dry Objective Data Vital Signs Vital Signs: Vital Signs - 24 hr 01/27/23 18:18 01/27/23 18:24 01/27/23 18:24 Temperature Pulse Rate 83 85 Respiratory Rate 17 Blood Pressure 115/71 Pulse Oximetry 89 L 92 Oxygen Delivery Room Air Nasal Cannula Oxygen Flow Rate 2 Fraction of Inspired Oxygen 01/27/23 18:32 01/27/23 18:45 01/27/23 18:46 Temperature Pulse Rate 83 89 79 Respiratory Rate 15 19 15 Blood Pressure 145/73 H Pulse Oximetry 95 95 93 Oxygen Delivery Oxygen Flow Rate Fraction of Inspired Oxygen 01/27/23 19:00 01/27/23 19:01 01/27/23 19:19 Temperature Pulse Rate 80 80 Respiratory Rate 17 21 H Blood Pressure Pulse Oximetry 93 94 Oxygen Delivery Nasal Cannula Oxygen Flow Rate 2 Fraction of Inspired Oxygen 28 01/27/23 20:15 01/27/23 19:18 01/27/23 19:30 Temperature Pulse Rate 74 76 75 Respiratory Rate 17 22 H 17 Blood Pressure Pulse Oximetry 96 95 Oxygen Delivery Oxygen Flow Rate Fraction of Inspired Oxygen 01/27/23 19:45 01/27/23 20:03 01/27/23 20:28 Temperature Pulse Rate 79 80 83 Respiratory Rate 16 14 22 H Blood Pressure Pulse Oximetry 98 98 92 Oxygen Delivery Oxygen Flow Rate Fraction of Inspired Oxygen 01/27/23 21:19 01/27/23 21:40 01/27/23 21:46 Temperature Pulse Rate 78 80 71 Respiratory Rate 15 13 17 Blood Pressure Pulse Oximetry 94 94 92 Oxygen Delivery Oxygen Flow Rate Fraction of Inspired Oxygen 01/27/23 22:01 01/27/23 22:42 01/28/23 00:12 Temperature 97.9 F Pulse Rate 72 75 75 Respiratory Rate 21 H 18 18 Blood Pressure 159/72 H Pulse Oximetry 94 94 94 Oxygen Delivery Nasal Cannula Oxygen Flow Rate 2 Fraction of Inspired Oxygen 01/28/23 00:00 01/28/23 01:10 01/28/23 03:00 Tempera
[2023-01-28 15:15] LABS: Alanine Aminotransferase 25 U/L (6-35); Alkaline Phosphatase 96 U/L (38-126); Anion Gap 5 mmol/L (8-16); Aspartate Amino Transferase 26 U/L (14-36); Bilirubin,Total 0.5 mg/dL (0.2-1.3); Blood Urea Nitrogen 17 mg/dL (7-17); Calcium 8.6 mg/dL (8.4-10.2); Carbon Dioxide 31 mmol/L (22-30); Chloride 94 mmol/L (98-107); Estimated CRCL calculation 83 ml/min; Estimated Glomerular Filt Rate > 60; Glucose 237 mg/dL (65-110); Lipase 61 U/L (23-300); Potassium 4.7 mmol/L (3.4-5.0); Sodium 130 mmol/L (137-145)
--- NOTE | 2023-01-28 16:53 | PM.CNPUL ---
Assessment and Plan Assessment and plan (1) Acute respiratory failure with hypoxia: Code(s): J96.01 - Acute respiratory failure with hypoxia Status: Acute Assessment and Plan: The patient had acute deterioration in her status, normally, does not use oxygen at home. She did require supplemental oxygen on admission 2 L/min. She does not have CO2 retention. Her deterioration appears to be due to a COPD exacerbation. She has seasonal allergies and for the past 2 weeks has been struggling with the change in weather. She does continue to smoke. We discussed tobacco cessation. She has now been weaned to room air. She feels 90% improved and wants to be discharged tomorrow. Will go home on pred taper, does not need atibiotics. (2) Acute exacerbation of chronic obstructive airways disease: Code(s): J44.1 - Chronic obstructive pulmonary disease with (acute) exacerbation Status: Acute Assessment and Plan: see above; she had 2 weeks of increased symptoms, failed prednisone and 2 rounds antibiotics. (3) Tobacco abuse: Code(s): Z72.0 - Tobacco use Status: Acute Assessment and Plan: continues to smoke outside, has a bird in the house; discussed tobacco cessation 3-7 minutes.She was smoking a few cigarettes a day until 2 days prior to admission Stopping smoking is the most important choice you can make for your health. There is a financial cost, as well as the impact on your health, health of family members and your pets. We recommend picking a quit date, eliminating tobacco from your house, finding alternative activities when you have a craving, and knowing that a craving lasts 5-6 minutes. Nicotine replacement therapy can be helpful, including patches, lozenges, gum and inhalers. 5-171-HLIIPNF is a toll free number with a live person who will talk with you about stopping smoking. (4) TATUM (obstructive sleep apnea): Code(s): G47.33 - Obstructive sleep apnea (adult) (pediatric) Status: Chronic Assessment and Plan: TATUM and RLS, stable issues. She is compliant with therapy, download in October showed 94% days greater than 4 hours usage. Plan Home O2 evaluation before discharge She will go home on prednisone taper, does not have to have antibiotics. Tobacco cessation strongly emphasized. She wants to have Breztri verses Trelegy, our office work load shows that the patient has been on both. She called our office January 16 and January 25, Trelegy was stopped and Breztri was sent. These are both similar drugs with 3 long-acting medications. This will come down to what insurance covers. She was approved for Daliresp/reflumilast 12/04/2022. Her last immunoglobulin panel was 06/23/2022, all values were in the normal range. History of Present Illness History of Present Illness Consult date: 01/28/23 Requesting physician: Marilin Bryant, BROOKE Chief complaint: COPD exacerbation, acute hypoxic resp failure Narrative: Patient was seen at 6:45 p.m. NEW CONSULT: Alma Anderson is a 62-year-old woman followed in our pulmonary clinic for asthma/COPD and obstructive sleep apnea. She also has common variable immune deficiency and is on Gamunex replacement therapy followed by tool repair technician Dr. Mendez; admitted with increased shortness of breath without improvement after2 week of out patient management. Her primary, marjorie Delgado da prednisone taper and 2 rounds of antibiotics, Z-pack and something else. She worsened, and at the point she could not take a breath in with severe shortness of
[2023-01-28 19:58] LABS: Glucose Point of Care 328 mg/dl (65-105)
[2023-01-28] MEDS: hydrALAZINE HCL 20 MG/ML VIAL 10 MG IV PUSH (20:36)
[2023-01-28] MEDS: INSULIN GLARGINE (*BKC) 100 UNITS/ML 10 UNITS SUB-Q (20:43)
[2023-01-28] MEDS: INSULIN ASPART (*BKC) 100 UNITS/ML 6 UNITS SUB-Q (20:44)
[2023-01-28] MEDS: AZITHROMYCIN IV 500 MG in SODIUM CHLORIDE 0.9% IV 250 ML 250 MG IVPB (21:17)
[2023-01-29] VITALS (13 sets, daily range): BP systolic 130–134; BP diastolic 70–72; PULSE 24–97; RESP 14–20; TEMP 36.9–37.2; O2SAT 95–99
--- NOTE | 2023-01-29 | ECHO_ITS ---
Patient Info Name: Alma Anderson Age: 62 years : 1960 Gender: Female Ht: 63 in Wt: 144 lbs BSA: 1.72 m2 HR: 60 bpm BP: 130 / 72 mmHg Heart Rhythm: Sinus Rhythm Technical Quality: Good Exam Date: 01/29/2023 3:11 PM Exam Location: [facility] Patient Status: Outpatient Admit Date: 01/27/2023 Staff Ordering Physician: Maria Luz Cash MD Gas Analyst: Carie Piper RDCS Attending Provider: Fernando Montenegro MD Referring Physician: Shreya ELLIOTT; Exam Type: CA echo doppler color flow Study Info Indications R06.02 - Shortness of breath Complete two-dimensional, color flow and Doppler transthoracic echocardiogram is performed. Summary 1. Complete two-dimensional, color flow and Doppler transthoracic echocardiogram is performed. 2. Normal left ventricular size, thickness, systolic and diastolic function. 3. Normal right ventricular function. 4. Mildly sclerotic aortic valve which is not stenotic. Left Ventricle Left ventricular chamber dimension is normal. Left ventricular systolic function is normal, estimated at 60-65%. The left ventricular diastolic function is normal. Right Ventricle Right ventricular chamber dimension is normal. Left Atria Left atrial chamber dimension is normal. Right Atria Right atrial chamber dimension is normal. Aortic Valve The aortic valve is trileaflet. There is mild aortic valve sclerosis. Pulmonic Valve The pulmonic valve is normal. Mitral Valve The mitral valve has normal leaflets. Tricuspid Valve The tricuspid valve leaflets are normal. Pericardium/Pleural The pericardium appears normal. Aorta The aortic root size at the sinus of Valsalva is normal. Left Ventricular Outflow Tract Name Value Normal LVOT 2D LVOT Diameter 1.9 cm LVOT Doppler LVOT Peak Gradient 6 mmHg LVOT Mean Gradient 3 mmHg LVOT VTI 27 cm LVOT VTI/AV VTI Ratio 0.7 LVOT Stroke Volume 75 ml LVOT CO 4.6 l/min LVOT CI 2.7 l/min/m2 Pulmonic Valve Name Value Normal RVOT Doppler RVOT Peak Gradient 5 mmHg PV Doppler PV Peak Gradient 5 mmHg Mitral Valve Name Value Normal MV Doppler MV Decel [place] 237 cm/s2 MV PHT 92 ms MV Area (PHT) 2.4 cm2
[2023-01-29] MEDS: DEXAMETHASONE SOD PHOS INJ 4 MG/ML VIAL IV PUSH ×3 (05:35→17:20)
[2023-01-29] MEDS: LEVOTHYROXINE SODIUM 50 MCG TABLET PO (05:35)
[2023-01-29] MEDS: oxyCODONE/ACETAMINOPHEN (*CRX) 10-325 MG TABLET 1 TAB PO ×3 (05:49→18:15)
[2023-01-29 05:53] LABS: Hematocrit 45.7 % (37.0-47.0); Hemoglobin 14.8 g/dL (12.0-15.0); Immature Granulocyte Absolute 0.03 K/mm3 (0.00-0.031); Immature Granulocyte Percent A 0.4 % (0-0.5); Lymphocytes Absolute Auto 0.55 K/mm3 (0.9-3.2); Lymphocytes Percent Auto 7.7 % (18.3-44.2); Mean Corpuscular HGB Conc 32.4 g/dl (32-36); Mean Corpuscular Hemoglobin 28.6 pg (26-34); Mean Corpuscular Volume 88.2 fl (80-100); Mean Platelet Volume 9.5 fl (7.4-10.4); Monocytes Absolute Auto 0.2 K/mm3 (0.1-0.6); Monocytes Percent Auto 2.4 % (2.6-8.5); Neutrophils Absolute Auto 6.4 K/mm3 (1.3-6.7); Neutrophils Percent Auto 89.5 % (45.5-73.1); Platelet Count Result 180 k/mm3 (150-375); Red Blood Count 5.18 M/mm3 (4.2-5.4); White Blood Count 7.2 K/mm3 (4.5-10.0)
[2023-01-29 06:10] LABS: Anion Gap 7 mmol/L (8-16); Blood Urea Nitrogen 16 mg/dL (7-17); Calcium 8.8 mg/dL (8.4-10.2); Carbon Dioxide 31 mmol/L (22-30); Chloride 96 mmol/L (98-107); Estimated CRCL calculation 100 ml/min; Estimated Glomerular Filt Rate > 60; Glucose 199 mg/dL (65-110); Potassium 4.3 mmol/L (3.4-5.0); Sodium 134 mmol/L (137-145)
[2023-01-29] MEDS: IPRATROPIUM BR 0.02% INH SOLN 0.5 MG/2.5 ML VIAL INHALATION (07:54)
[2023-01-29] MEDS: LEVALBUTEROL NEB 1.25 MG/3 ML 0.63 MG INHALATION ×2 (07:54→13:55)
[2023-01-29] MEDS: FLUTICASONE/UMECLIDIN/VILANTER 100-62.5-25 MCG ELLIPTA 1 PUFF INHALATION (08:00)
[2023-01-29] MEDS: FENOFIBRATE 160 MG TABLET PO (09:48)
[2023-01-29] MEDS: rOPINIRole HCL 0.5 MG TABLET PO ×3 (09:48→17:21)
[2023-01-29] MEDS: METOPROLOL TARTRATE 25 MG TABLET PO ×2 (09:48→20:22)
[2023-01-29] MEDS: ROFLUMILAST 500 MCG TABLET PO (09:48)
[2023-01-29] MEDS: MONTELUKAST SODIUM 10 MG TABLET PO (09:48)
[2023-01-29] MEDS: ATORVASTATIN 40 MG TABLET PO (09:49)
[2023-01-29] MEDS: FAMOTIDINE 20 MG TABLET 40 MG PO (09:49)
[2023-01-29] MEDS: ASPIRIN 81 MG ENTERIC TABLET PO (09:49)
[2023-01-29] MEDS: GABAPENTIN 400 MG CAPSULE PO ×2 (09:49→20:22)
[2023-01-29] MEDS: FLUoxetine HCL 20 MG CAPSULE PO (09:49)
[2023-01-29] MEDS: ENOXAPARIN 40 MG/0.4 ML SYRINGE SUB-Q (09:49)
[2023-01-29] MEDS: estradioL 0.5 MG TABLET PO (09:49)
--- NOTE | 2023-01-29 10:33 | PM.PNPUL ---
Progress Note: A&P Assessment and Plan (1) Acute respiratory failure with hypoxia: Code(s): J96.01 - Acute respiratory failure with hypoxia Status: Acute Assessment and Plan: The patient had acute deterioration in her status, normally, does not use oxygen at home.? She did require supplemental oxygen on admission 2 L/min.? She does not have CO2 retention.? Her deterioration appears to be due to a COPD /asthma exacerbation.? She has seasonal allergies and for the past 2 weeks has been struggling with the change in weather.? She does continue to smoke.? We discussed tobacco cessation.? She has now been weaned to room air.? She feels 90% improved. Still has significant wheezing and has not been physically active yet. Right upper quadrant ultrasound shows nodular liver and portal hypertension, suggestive of cirrhosis. Patient told me years ago she had a fatty liver due to hypertriglyceridemia but this was controlled with medication. She does not drink alcohol. (2) Asthma-COPD overlap syndrome: Code(s): J44.9 - Chronic obstructive pulmonary disease, unspecified Status: Acute Assessment and Plan: with acute exacerbation Her asthma is followed by her hole filler Dr. Mendez, and she is in between inhalers at home. She restarted Breztri around January 16, not sure of this worsened her symptoms. She has Trelegy 1 puff per day, as this is approved by her insurance. This has and use your dosing schedule and she has tolerated it in the past. (3) Tobacco abuse: Code(s): Z72.0 - Tobacco use Status: Acute Assessment and Plan: continues to smoke outside, has a bird in the house; discussed tobacco cessation 3-7 minutes.She was smoking a few cigarettes a day until 2 days prior to admission Stopping smoking is the most important choice you can make for your health. There is a financial cost, as well as the impact on your health, health of family members and your pets. We recommend picking a quit date, eliminating tobacco from your house, finding alternative activities when you have a craving, and knowing that a craving lasts 5-6 minutes. Nicotine replacement therapy can be helpful, including patches, lozenges, gum and inhalers. 3-705-TAGBUES is a toll free number with a live person who will talk with you about stopping smoking. (4) TATUM (obstructive sleep apnea): Code(s): G47.33 - Obstructive sleep apnea (adult) (pediatric) Status: Chronic Assessment and Plan: TATUM and RLS, stable issues.? She is compliant with therapy, download in October showed 94% days greater than 4 hours usage. She is using hospital PAP currently. Time Spent With Patient Time: * echo today * has no echo in the system, evaluate pulmonary hypertension Home O2 evaluation before discharge; may not be able to go today due to persistent wheezing. * Stop ipratropium nebs since she is currently on Trelegy which has a LAMA* She will go home on prednisone taper, does not have to have antibiotics. Tobacco cessation strongly emphasized. We discussed out patient Rx: will stay with Trelegy 1 puff a day instead of Breztri. Office work load shows that the patient has been on both.? She called our office January 16 and January 25, Trelegy was stopped and Breztri was sent.? These are both similar drugs with 3 long-acting medications.? This will come down to what insurance covers. She was approved for Daliresp/roflumilast? 12/04/2022. Using this is expected to reduce exacerbations when used regularly. Her last immunoglobulin panel was 06/23/2022, all values were in the normal range.
--- NOTE | 2023-01-29 14:25 | PM.IMPN ---
Progress Note: A&P Assessment and Plan (1) Acute respiratory failure with hypoxia: Code(s): J96.01 - Acute respiratory failure with hypoxia Status: Acute Assessment and Plan: Patient presents with SOB and found to be hypoxic on admission. ABG 7.45/44/80 on 2L. CXR was clear. She does have CVID. She was wheezing and felt she had COPD exacerbation. She was started on bronchodilators, steroids and abx. She is feeling better. She remains on 2L. Home O2 evaluation tomorrow. Okay to stop Abx. (2) Acute exacerbation of chronic obstructive airways disease: Code(s): J44.1 - Chronic obstructive pulmonary disease with (acute) exacerbation Status: Acute Assessment and Plan: As above. Patient started on steroids, neb treatments and abx. Continue to monitor (3) TATUM (obstructive sleep apnea): Code(s): G47.33 - Obstructive sleep apnea (adult) (pediatric) Status: Chronic Assessment and Plan: Patient compliant with BiPAP. Continue the same. 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 The patient's blood glucose was reviewed on 01/29 Glucose remains well controlled. Continue AccuCheks covering with sliding scale. Hypoglycemia protocol available as needed. Continue current medications. (5) Abdominal pain: Code(s): R10.9 - Unspecified abdominal pain Status: Acute Assessment and Plan: Patient with RUQ pain. She has hx of SBO and fatty liver. Lipase and LFTs normal. Obstructive series was normal. RUQ US showing hepatic surface nodularity suggesting cirrhosis with evidence of portal venous HTN. CBD 9mm but TBili normal; probably related to CCY. Cirrhosis probably related to fattty liver disease Check PT/PTT. Ammonia level. Check Alpha-1 AT level. Check for Hepatitis (6) Tobacco dependence: Code(s): F17.200 - Nicotine dependence, unspecified, uncomplicated Status: Chronic Assessment and Plan: Patient was educated about the benefits of smoking cessation. (7) RLS (restless legs syndrome): Code(s): G25.81 - Restless legs syndrome Status: Chronic Assessment and Plan: Stable. Continue home medications. Subjective Date/time seen: 01/29/23 14:25 Interval history: 62yo female with asthma, CVID, TATUM and tobacco abuse here for SOB. Anxious last night and was unable to sleep much. Had coughing and wheezing episode this morning and had to go back on O2. Feels better now. Exam Narrative: AF 98.5 130/72 66 20 95% 2L Gen - NARD Chest - scattered expiratory wheezes CV - RRR S1/S2 Abd - No RUQ pain. No HSM. +BS. Ext - No pedal edema Psych - Nml mood and affect Skin - Warm and dry Objective Data Vital Signs Vital Signs: Vital Signs - 24 hr 01/28/23 14:32 01/28/23 16:18 01/28/23 19:25 Temperature 98.5 F Pulse Rate 51 L Respiratory Rate 18 Blood Pressure 160/67 H Pulse Oximetry 96 93 91 Oxygen Delivery Nasal Cannula Room Air Oxygen Flow Rate 1 Fraction of Inspired Oxygen 01/28/23 19:53 01/28/23 20:46 01/28/23 20:00 Temperature Pulse Rate 67 51 L 51 L Respiratory Rate 14 14 Blood Pressure Pulse Oximetry 91 Oxygen Delivery Room Air Oxygen Flow Rate Fraction of Inspired Oxygen 28 01/28/23 22:10 01/29/23 04:23 01/29/23 07:54 Temperature 98.5 F Pulse Rate 59 L 53 L Respiratory Rate 20 14 Blood Pressure 103/56 L 130/72 Pulse Oximetry 97 97 Oxygen Delivery Autopap Oxygen Flow Rate Fraction of Inspired Oxygen 01/29/23 07:58
[2023-01-29 20:13] LABS: Glucose Point of Care 348 mg/dl (65-105)
[2023-01-29] MEDS: traZODone HCL 50 MG TABLET 100 MG PO (20:22)
[2023-01-29] MEDS: INSULIN GLARGINE (*BKC) 100 UNITS/ML 10 UNITS SUB-Q (20:26)
[2023-01-30] VITALS (10 sets, daily range): BP systolic 126; BP diastolic 70; PULSE 52–92; RESP 14–18; TEMP 37; O2SAT 91–99
[2023-01-30] MEDS: DEXAMETHASONE SOD PHOS INJ 4 MG/ML VIAL IV PUSH ×3 (00:04→12:00)
[2023-01-30] MEDS: LEVALBUTEROL NEB 1.25 MG/3 ML 0.63 MG INHALATION ×2 (03:28→09:11)
[2023-01-30] MEDS: oxyCODONE/ACETAMINOPHEN (*CRX) 10-325 MG TABLET 1 TAB PO ×2 (04:21→12:00)
[2023-01-30 05:45] LABS: Ammonia < 9 umol/L (9-30)
[2023-01-30 05:47] LABS: Alanine Aminotransferase 24 U/L (6-35); Alkaline Phosphatase 73 U/L (38-126); Anion Gap 3 mmol/L (8-16); Aspartate Amino Transferase 20 U/L (14-36); Bilirubin,Total 0.6 mg/dL (0.2-1.3); Blood Urea Nitrogen 17 mg/dL (7-17); Calcium 8.8 mg/dL (8.4-10.2); Carbon Dioxide 34 mmol/L (22-30); Chloride 95 mmol/L (98-107); Estimated CRCL calculation 83 ml/min; Estimated Glomerular Filt Rate > 60; Glucose 199 mg/dL (65-110); Potassium 4.3 mmol/L (3.4-5.0); Sodium 132 mmol/L (137-145)
[2023-01-30 05:48] LABS: Partial Thromboplastin Time 23.1 SECONDS (22.3-36.8); Prothrombin Time 12.8 Seconds (11.1-14.7)
[2023-01-30] MEDS: LEVOTHYROXINE SODIUM 50 MCG TABLET PO (06:00)
[2023-01-30 06:43] LABS: Hepatitis B Surface Antigen Negative (Negative)
[2023-01-30 07:03] LABS: Hepatitis B Surface Anti Res Positive; Hepatitis C Virus Antibody Negative (Negative)
[2023-01-30] MEDS: ATORVASTATIN 40 MG TABLET PO (08:11)
[2023-01-30] MEDS: ENOXAPARIN 40 MG/0.4 ML SYRINGE SUB-Q (08:11)
[2023-01-30] MEDS: ROFLUMILAST 500 MCG TABLET PO (08:11)
[2023-01-30] MEDS: FAMOTIDINE 20 MG TABLET 40 MG PO (08:11)
[2023-01-30] MEDS: ASPIRIN 81 MG ENTERIC TABLET PO (08:11)
[2023-01-30] MEDS: estradioL 0.5 MG TABLET PO (08:11)
[2023-01-30] MEDS: FENOFIBRATE 160 MG TABLET PO (08:11)
[2023-01-30] MEDS: rOPINIRole HCL 0.5 MG TABLET PO ×2 (08:11→12:00)
[2023-01-30] MEDS: FLUoxetine HCL 20 MG CAPSULE PO (08:12)
[2023-01-30] MEDS: MONTELUKAST SODIUM 10 MG TABLET PO (08:12)
[2023-01-30] MEDS: METOPROLOL TARTRATE 25 MG TABLET PO (08:12)
[2023-01-30] MEDS: GABAPENTIN 400 MG CAPSULE PO (08:13)
[2023-01-30] MEDS: INSULIN ASPART (*BKC) 100 UNITS/ML SUB-Q ×2 (08:20→12:04)
[2023-01-30 08:25] LABS: Glucose Point of Care 234 mg/dl (65-105)
[2023-01-30] MEDS: FLUTICASONE/UMECLIDIN/VILANTER 100-62.5-25 MCG ELLIPTA 1 PUFF INHALATION (09:11)
[2023-01-30 12:06] LABS: Glucose Point of Care 397 mg/dl (65-105)
--- NOTE | 2023-01-30 13:46 | PM.DS ---
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: with skilled 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 Diabetes mellitus complication status: without complication Qualified Code(s): E11.9 - Type 2 diabetes mellitus without complications; Z79.4 - [facility] (current) use of insulin Code(s): E11.9 - Type 2 diabetes mellitus without complications Status: Chronic (5) Abdominal pain: Code(s): R10.9 - Unspecified abdominal pain Status: Acute (6) Tobacco dependence: Code(s): F17.200 - Nicotine dependence, unspecified, uncomplicated Status: Chronic (7) RLS (restless legs syndrome): Code(s): G25.81 - Restless legs syndrome Status: Chronic (8) CVID (common variable immunodeficiency): Code(s): D83.9 - Common variable immunodeficiency, unspecified Status: Chronic (9) Cirrhosis: Code(s): K74.60 - Unspecified cirrhosis of liver Status: Acute DS: Summary Hospital Course Reason for hospitalization: 62yo female with asthma, CVID, TATUM and tobacco abuse here for SOB. Please see H&P for details. Hospital Course: Patient presents with SOB and found to be hypoxic on admission. ABG 7.45/44/80 on 2L. CXR was clear. She does have CVID. She was wheezing and felt she had COPD exacerbation. She was started on bronchodilators, steroids and abx. She improved. She was seen by Pulmonary. Not felt abx were warranted so these were stopped. She had a home O2 evaluation and did not need O2 at discharge. She was compliant with BiPAP.?A1c 7.6. The patient's blood glucose was monitored closely with AccuCheks covering with sliding scale.? Hypoglycemia protocol was available as needed.? Patient had abdominal/RUQ pain. She has hx of SBO and fatty liver. Lipase and LFTs were normal. Obstructive series was normal. RUQ US showing hepatic surface nodularity suggesting cirrhosis with evidence of portal venous HTN. CBD 9mm but TBili normal; probably related to CCY. Cirrhosis probably related to fatty liver disease PT/PTT normal. Ammonia level <9. Alpha-1 AT level pending. Hepatitis C negative. HepB surface Ab positive. Patient was educated about the benefits of smoking cessation. She overall did well and was able to be discharged home on 01/30/23 Status at Discharge Cognitive/behavioral status at discharge: Stable Time Spent with Patient Time attestation: Total time spent providing and/or coordinating discharge services: 36 minutes Time spent: Greater than 30 minutes Exam Narrative: AF 98.6 126/70 57 18 98% RA Gen - NARD Chest - few basilar rhonchi o/w clear. CV - RRR S1/S2 Abd - soft, NT/ND Ext - No pedal edema Psych - Nml mood and affect Skin - Warm and dry DS: Data Data Completed and Pending Labs on day of discharge: Labs from last 24 hours 01/30/23 01/30/23 01/30/23 12:04 08:09 05:28 PT INR APTT Sodium Potassium Chloride Carbon Dioxide Anion Gap BUN Creatinine Estim Creat Clear Calc Estimated GFR Glucose POC Capillary Glucose 397 H 234 H Calcium Total Bilirubin AST ALT Alkaline Phosphatase Ammonia Total Protein Albumin Alpha-1-AT Phenotype Hep Bs Antigen Hep Bs Antibody Hep B Core Total Ab Pending Hepatitis C Ab Screen 01/30/23 01/30/23 01/30/23 05:28 05:28 05:28 PT
--- NOTE | 2023-01-30 14:04 | HOMEO2EVAL ---
Evaluation was performed at [facility] Home Oxygen Evaluation RC: Home Oxygen (O2) Evaluation Start: 01/30/23 07:44 Freq: ONCE Status: Active Protocol: RPE Activity Type Activity Date Activity User E-sign Co-sign Detail Recorded Client Recorded Date Recorded By Document 01/30/23 11:30 KAREN [email or web address] 01/30/23 14:03 KAREN Document 01/30/23 11:40 KAREN [email or web address] 01/30/23 14:03 KAREN Document 01/30/23 11:45 KAREN [email or web address] 01/30/23 14:03 KAREN 01/30/23 01/30/23 01/30/23 11:30 11:40 11:45 Home O2 Evaluation [Oxygen] -Test Phase Resting Exercise Resting -Oxygen Delivery Room Air Room Air Room Air [Pulse Oximetry] -Pulse Oximetry (90-100 %) 94 91 94 [Pulse Rate] -Pulse Rate (60-100 beats/min) 71 92 76 [Comments] -Home Oxygen Evaluation Comments NO HOME O2 NEEDED [Charges] -Treatment Charges O2 Evaluation - Inpatient
--- NOTE | 2023-01-30 14:04 | PCRCNOTE ---
HOME O2 EVAL DONE, NO HOME O2 NEEDED AT THIS TIME. RN NOTIFIED
[2023-02-03 11:49] LABS: Hepatitis B Core Ab Total Nonreactive (Nonreactive)
--- NOTE | 2023-02-05 10:39 | PC.NURSE ---
HEP B core 0-
--- NOTE | 2023-02-05 10:39 | PC.NURSE ---
Hep B core is nonreactive. Dr. Terry aware.
--- NOTE | 2023-02-07 10:21 | PC.NURSE ---
A1-AT shows phenotype PI*MM. Dr. Harrison harrison.
== END 2023-01-30 15:00 | disposition home or self-care (01) ==
LOC: ANHED 21:30 → ANH3MED 22:16
PROVIDERS: Admitting Provider Internal Medicine; Emergency Provider Physician Assistant; PCP Family Medicine; Visit Provider Internal Medicine
DX: J96.01 Acute respiratory failure with hypoxia (principal); J44.1 Chronic obstructive pulmonary disease with (acute) exacerbation; E11.9 Type 2 diabetes mellitus without complications; G47.33 Obstructive sleep apnea (adult) (pediatric); G25.81 Restless legs syndrome; D83.9 Common variable immunodeficiency, unspecified; K74.60 Unspecified cirrhosis of liver; R10.9 Unspecified abdominal pain; F17.210 Nicotine dependence, cigarettes, uncomplicated; Z20.822 Contact with and (suspected) exposure to COVID-19; Z86.16 Personal history of COVID-19; Z79.51 Long term (current) use of inhaled steroids; Z79.82 Long term (current) use of aspirin; Z79.890 Hormone replacement therapy; Z79.52 Long term (current) use of systemic steroids; Z79.84 Long term (current) use of oral hypoglycemic drugs; Z79.891 Long term (current) use of opiate analgesic; Z79.899 Other long term (current) drug therapy
CPT/HCPCS: 36415; 36600; 71046; 74019; 76705; 80048; 80053; 82104; 82140; 82375; 82805; 82948; 83050; 83690; 83880; 84484; 85025; 85610; 85730; 86704; 86706; 86803; 87070; 87205; 87340; 87634; 87636; 93005; 93306; 94618; 94640; 96365; 96367; 96372; 96374; 96375; 96376; 99285; A9270; G0378; G0379; J0360; J0456; J0696; J1100; J1650; J1815; J7050

== ENCOUNTER 2023-04-30 12:52 | Outpatient (CLI) | payer OTHER, SELFPAY ==
--- NOTE | ~2023-04-30 | XR_ITS ---
XR lumbar spine 2-3V DATE: 04/30/2023 13:59 INDICATION: Chronic back pain TECHNIQUE: AP, lateral, coned lateral lumbosacral views COMPARISON: 02/07/2021 lumbar spine FINDINGS: Again noted is posterior surgical fusion with bilateral L4-S1 pedicle screws and rods. There is diffuse osteopenia. There is moderate degenerative disc disease and grade 1 anterolisthesis at L2-3. Moderate degenerative disc disease at L4-5 and L5-S1. There is grade 1/grade 2 anterolisthesis at L5-S1. The sacroiliac joints are intact. Retained neurostimulator leads. There is extensive calcification of the descending thoracic and abdominal aorta and common iliac timur merari. No abdominal aortic aneurysm is evident. Surgical clips, right upper quadrant, likely due to cholecystectomy. IMPRESSION: Minimal interval change since 02/07/2021. Reviewed, dictated and finalized at location B.
--- NOTE | ~2023-04-30 | XR_ITS ---
XR thoracic spine 3V DATE: 04/30/2023 13:59 INDICATION: Chronic back pain TECHNIQUE: AP, lateral, swimmer views COMPARISON: None FINDINGS: Status post anterior cervical spine fusion at C5-6. Minimal thoracic dextroscoliosis. There is diffuse osteopenia. There is mild to moderate multilevel degenerative spurring of the thoracic spine. No fracture or dislocation or bone destruction is evident. The thoracic pedicles are intact. No mark annita soft tissue thickening is noted. Bilateral cervical carotid arterial calcifications. IMPRESSION: Osteopenia Minimal thoracic dextro scoliosis Mild to moderate multilevel degenerative spurring Reviewed, dictated and finalized at location B.
--- NOTE | ~2023-04-30 | XR_ITS ---
XR cervical spine 4-5V DATE: 04/30/2023 13:59 INDICATION: Neck and back chronic pain TECHNIQUE: AP, lateral, swimmer's, open-mouth, odontoid views COMPARISON: 02/07/2021 cervical spine FINDINGS: Again noted is anterior cervical spine fusion at C5-6. C1 and C2 are normally aligned and the odontoid process is intact. No fracture or dislocation or lock ed facet or prevertebral soft tissue swelling is detected. IMPRESSION: Status post anterior cervical spine fusion at C5-6 Reviewed, dictated and finalized at location B.
[2023-04-30 13:37] LABS: Basophils Percent Auto 0.2 % (0.2-1.2); Eosinophils Absolute Auto 0.1 K/mm3 (0-0.3); Eosinophils Percent Auto 0.5 % (0-4.4); Hematocrit 49.7 % (37.0-47.0); Hemoglobin 16.6 g/dL (12.0-15.0); Immature Granulocyte Absolute 0.07 K/mm3 (0.00-0.031); Immature Granulocyte Percent A 0.5 % (0-0.5); Lymphocytes Absolute Auto 1.29 K/mm3 (0.9-3.2); Lymphocytes Percent Auto 9.8 % (18.3-44.2); Mean Corpuscular HGB Conc 33.4 g/dl (32-36); Mean Corpuscular Hemoglobin 28.6 pg (26-34); Mean Corpuscular Volume 85.7 fl (80-100); Mean Platelet Volume 9.5 fl (7.4-10.4); Monocytes Absolute Auto 0.4 K/mm3 (0.1-0.6); Neutrophils Absolute Auto 11.3 K/mm3 (1.3-6.7); Platelet Count Result 235 k/mm3 (150-375); Red Cell Distribution Width 13.4 % (11.5-14.5); White Blood Count 13.1 K/mm3 (4.5-10.0)
[2023-04-30 13:48] LABS: Hemoglobin A1C 7.2 % (<5.7)
[2023-04-30 13:51] LABS: Alanine Aminotransferase 28 U/L (6-35); Albumin Level 4.4 g/dL (3.5-5.1); Alkaline Phosphatase 79 U/L (38-126); Anion Gap 10 mmol/L (8-16); Aspartate Amino Transferase 27 U/L (14-36); Bilirubin,Total 0.5 mg/dL (0.2-1.3); Blood Urea Nitrogen 24 mg/dL (7-17); Calcium 9.9 mg/dL (8.4-10.2); Carbon Dioxide 24 mmol/L (22-30); Chloride 93 mmol/L (98-107); Estimated Glomerular Filt Rate > 60; Glucose 235 mg/dL (65-110); Potassium 4.7 mmol/L (3.4-5.0); Sodium 127 mmol/L (137-145)
== END 2023-04-30 12:53 | disposition home or self-care (01) ==
PROVIDERS: PCP Family Medicine; Visit Provider Nurse Practitioner Adult Health
DX: M54.2 Cervicalgia (principal); M47.816 Spondylosis without myelopathy or radiculopathy, lumbar region; E78.00 Pure hypercholesterolemia, unspecified; E11.9 Type 2 diabetes mellitus without complications; I10 Essential (primary) hypertension; M41.9 Scoliosis, unspecified; Z98.1 Arthrodesis status
CPT/HCPCS: 36415; 72050; 72072; 72100; 80053; 83036; 85025

== ENCOUNTER 2023-05-01 14:52 | Emergency (ER) | payer OTHER, SELFPAY ==
--- NOTE | ~2023-05-01 | XR_ITS ---
EXAMINATION: XR chest 2V Exam Date/Time: 05/01/2023 16:43 CDT HISTORY: sob, cough X 1 week Comparison: 01/27/2023. RESULT: Lines, tubes, and devices: Cervical fusion hardware. Lungs and pleura: Emphysematous/senescent change. Right middle lobe calcified granuloma. Cardiomediastinal silhouette: Stable. Other: No acute osseous or upper abdominal finding. IMPRESSION: No acute cardiopulmonary process. Reviewed, dictated and finalized at location K.
[2023-05-01 14:58] VITALS: BP 137/64; PULSE 87; RESP 16; TEMP 36.4; O2SAT 100
[2023-05-01 15:34] VITALS: BP 155/119; PULSE 73; RESP 20; TEMP 36.4; O2SAT 96
[2023-05-01 15:56] LABS: Basophils Percent Auto 0.2 % (0.2-1.2); Eosinophils Percent Auto 0.3 % (0-4.4); Hematocrit 51.8 % (37.0-47.0); Hemoglobin 17.4 g/dL (12.0-15.0); Immature Granulocyte Absolute 0.08 K/mm3 (0.00-0.031); Immature Granulocyte Percent A 0.6 % (0-0.5); Mean Corpuscular HGB Conc 33.6 g/dl (32-36); Mean Corpuscular Hemoglobin 28.6 pg (26-34); Mean Corpuscular Volume 85.2 fl (80-100); Mean Platelet Volume 9.6 fl (7.4-10.4); Monocytes Absolute Auto 0.2 K/mm3 (0.1-0.6); Monocytes Percent Auto 1.5 % (2.6-8.5); Neutrophils Percent Auto 90.4 % (45.5-73.1); Platelet Count Result 236 k/mm3 (150-375); Red Blood Count 6.08 M/mm3 (4.2-5.4); Red Cell Distribution Width 13.4 % (11.5-14.5); White Blood Count 14.4 K/mm3 (4.5-10.0)
[2023-05-01 15:59] LABS: Appearance Urine Clear (Clear); Bacteria Urine None Seen /hpf; Bilirubin Urine Negative (Negative); Blood Urine Trace (Negative); Color Urine Yellow (Yellow); Glucose Urine UA 3+ mg/dL (Negative); Ketones Urine Negative (Negative); Leukocyte Esterase Ur 2+ LEU/UL (Negative); Nitrate Urine Negative (Negative); Non Pathogenic Casts 0-2; Protein Urine 1+ mg/dL (Negative); RBC Urine 0-2 /hpf (0-2); Specific Grav Ur 1.013 (1.001-1.035); Squamous Epithelial Cell Urine Few /hpf (Few); Urobilinogen Urine 0.2 mg/dL (<2.0); pH Urine 6.5 (5.0-9.0)
--- NOTE | 2023-05-01 16:02 | ECG_ITS ---
Measurements Intervals [place] Rate: 72 P: 78 RI: 201 QRS: 47 QRSD: 94 T: 95 QT: 355 QTc: 391 Interpretive Statements SINUS RHYTHM RIGHT ATRIAL ENLARGEMENT BORDERLINE AV CONDUCTION DELAY ANTEROSEPTAL INFARCT, AGE INDETERMINATE BORDERLINE ST-T WAVE ABNORMALITY- INF/HIGH LAT LEADS BASELINE ARTIFACT- I, II, III, AVR, AVL, AVF ABNORMAL ECG COMPARED TO ECG 01/27/2023 18:22:48 NO SIGNIFICANT CHANGES Electronically Signed On 05-01-2023 16:29:42 CDT by Channing Mckeon D.O.
--- NOTE | 2023-05-01 16:05 | ED.GENADULT ---
HPI - General Adult General Chief complaint: Nausea/Vomiting/Diarrhea <Marilin Bryant PA-C - Last Filed: 05/01/23 18:52> Stated complaint: dehydrated <BROOKE Kim Last Filed: 05/01/23 18:52> Time Seen by Provider: 05/01/23 15:30 <BROOKE Kim Last Filed: 05/01/23 18:52> Source: patient <BROOKE Kim Last Filed: 05/01/23 18:52> Mode of arrival: ambulatory <BROOKE Kim Last Filed: 05/01/23 18:52> Limitations: no limitations <BROOKE Kim Last Filed: 05/01/23 18:52> History of Present Illness HPI narrative: Patient is a 62 y/o female who presents to the ED with multiple complaints. Patient reports she has been having upper respiratory symptoms, including a cough, chest congestion, rhinorrhea, subjective fevers, mild SOB for the last week and a half. Over the last 2-3 days, she has been feeling weak and nauseous. She was scheduled to follow-up with her primary care doctor later this week and had outpatient blood work drawn yesterday. She was notified by her primary care doctor to come to the ER today as she appeared very dehydrated on her labs. Particularly her sodium was noted to be low at 127. Patient has had decreased PO intake. Denies vomiting, diarrhea, constipation, chest pain, lower extremity pain or swelling. Patient smokes 0.5ppd. <BROOKE Kim Last Filed: 05/01/23 18:52> Related Data Home medications: Home Medications Medication Instructions Recorded Confirmed atorvastatin 40 mg tablet 40 mg PO DAILY 09/18/19 01/27/23 famotidine 40 mg tablet 40 mg PO DAILY 09/18/19 01/27/23 fenofibrate 160 mg tablet 160 mg PO DAILY 09/18/19 01/27/23 levothyroxine 50 mcg tablet 50 mcg PO DAILY 09/18/19 01/27/23 metoprolol tartrate 50 mg tablet 25 mg PO BID 09/18/19 01/27/23 aspirin 81 mg tablet,delayed 81 mg PO DAILY 11/25/19 01/27/23 release estradiol 1 mg tablet 0.5 mg PO DAILY 05/04/20 01/27/23 potassium chloride 10 mEq 10 meq PO DAILY 05/04/20 01/27/23 tablet,extended release ropinirole 0.5 mg tablet 0.5 mg PO TID 05/04/20 01/27/23 oxycodone-acetaminophen 10 mg-325 1 tablet PO Q6H PRN pain 04/27/22 01/27/23 mg tablet immune glob G 40 gram/400 500 ml IV MONTHLY 06/26/22 01/27/23 mL(10%)-gly-IgA ave 46 mcg/mL injection soln (Gamunex-C) fluoxetine 20 mg tablet 20 mg PO DAILY 01/27/23 01/27/23 fluticasone fur. 100 mcg-umeclid 1 inh inhalation BID 01/27/23 01/27/23 62.5 mcg-vilant 25 mcg inhalat.powder (Trelegy Ellipta) gabapentin 400 mg capsule 400 mg PO BID 01/27/23 01/27/23 (Neurontin) montelukast 10 mg tablet 10 mg PO DAILY 01/27/23 01/27/23 (Singulair) sitagliptin phosphate 100 mg 100 mg PO DAILY 01/27/23 01/27/23 tablet (Januvia) <Marilin Bryant PA-C - Last Filed: 05/01/23 18:52> Allergies/adverse reactions: Allergies Allergy/AdvReac Type Severity Reaction Status Date / Time Sulfa (Sulfonamide Allergy Unknown unknown Verified 05/01/23 15:47 Antibiotics) <Marilin Bryant PA-C - Last Filed: 05/01/23 18:52> Review of Systems Review of Systems: CONSTITUTIONAL: Denies fever, chills, or sweats. EYES: Denies visual changes, redness, or discharge. ENT: See HPI. CARDIOVASCULAR: Denies chest pain, palpitations, or edema. RESPIRATORY: See HPI. GASTROINTESTINAL: See HPI. GENITOURINARY: Denies dysuria or hematuria. NEUROLOGIC: See HPI. <Marilin Bryant PA-C - Last Filed: 05/01/23 18:52> All systems reviewed & are unremarkable except as noted in HPI and below <Marilin Bryant PA-C - Last Filed: 05/01/23 18:52> [facility] Past Medical History Medical History: Medical History Allergic rhinitis Asthma Asthma CVID (common variable immunodeficiency) Diabetes mellitus TATUM (obstructive sleep apnea) RLS (restless legs syndrome) Tobacco abuse <Marilin
[2023-05-01 16:08] LABS: Add Urine Microscopic? YES
[2023-05-01 16:21] LABS: Alanine Aminotransferase 29 U/L (6-35); Albumin Level 4.6 g/dL (3.5-5.1); Alkaline Phosphatase 80 U/L (38-126); Anion Gap 12 mmol/L (8-16); Aspartate Amino Transferase 27 U/L (14-36); Bilirubin,Total 0.6 mg/dL (0.2-1.3); Blood Urea Nitrogen 30 mg/dL (7-17); Calcium 10.8 mg/dL (8.4-10.2); Carbon Dioxide 26 mmol/L (22-30); Chloride 92 mmol/L (98-107); Estimated CRCL calculation 66 ml/min; Estimated Glomerular Filt Rate > 60; Glucose 291 mg/dL (65-110); Lipase 180 U/L (23-300); Sodium 130 mmol/L (137-145)
[2023-05-01] MEDS: SODIUM CHLORIDE 0.9% IV 1,000 ML 999 ML IV CONT ×2 (16:35→17:54)
[2023-05-01 16:38] VITALS: BP 120/70; PULSE 78; RESP 16; O2SAT 96
[2023-05-01 16:42] LABS: Troponin I < 0.012 ng/mL (0.000-0.034)
[2023-05-01 17:56] VITALS: BP 124/56; PULSE 74; RESP 14; TEMP 36.4; O2SAT 97
[2023-05-01 18:14] LABS: Influenza A QL RT-PCR Negative (Negative); Influenza B QL RT-PCR Negative (Negative); SARS-CoV-2 RNA PCR Negative (Negative)
[2023-05-01 19:10] VITALS: BP 129/58; PULSE 76; RESP 16
== END 2023-05-01 19:14 | disposition home or self-care (01) ==
PROVIDERS: Emergency Provider Physician Assistant
DX: N30.00 Acute cystitis without hematuria (principal); E87.1 Hypo-osmolality and hyponatremia; E86.0 Dehydration; R53.1 Weakness; Z20.822 Contact with and (suspected) exposure to COVID-19; J45.909 Unspecified asthma, uncomplicated; E11.9 Type 2 diabetes mellitus without complications; G47.33 Obstructive sleep apnea (adult) (pediatric); G25.81 Restless legs syndrome; D83.9 Common variable immunodeficiency, unspecified; F17.210 Nicotine dependence, cigarettes, uncomplicated; Z90.49 Acquired absence of other specified parts of digestive tract; Z79.84 Long term (current) use of oral hypoglycemic drugs; Z79.82 Long term (current) use of aspirin; R94.31 Abnormal electrocardiogram [ECG] [EKG]
CPT/HCPCS: 36415; 71046; 80053; 81001; 83690; 84484; 85025; 87086; 87088; 87636; 93005; 96361; 96365; 99284; J0696; J7030

== ENCOUNTER 2023-06-22 09:03 | Outpatient (CLI) | payer OTHER, SELFPAY ==
[2023-06-22 09:54] LABS: Alanine Aminotransferase 23 U/L (6-35); Albumin Level 3.9 g/dL (3.5-5.1); Alkaline Phosphatase 49 U/L (38-126); Anion Gap 7 mmol/L (8-16); Aspartate Amino Transferase 36 U/L (14-36); Bilirubin,Total 0.3 mg/dL (0.2-1.3); Blood Urea Nitrogen 14 mg/dL (7-17); Calcium 9.5 mg/dL (8.4-10.2); Carbon Dioxide 31 mmol/L (22-30); Chloride 100 mmol/L (98-107); Estimated Glomerular Filt Rate > 60; Glucose 118 mg/dL (65-110); Potassium 4.1 mmol/L (3.4-5.0); Sodium 138 mmol/L (137-145)
== END 2023-06-22 09:04 | disposition home or self-care (01) ==
LOC: ANHLAB 09:05
PROVIDERS: Visit Provider Nurse Practitioner Adult Health
DX: E87.1 Hypo-osmolality and hyponatremia (principal)
CPT/HCPCS: 36415; 80053

== ENCOUNTER 2023-06-29 14:58 | Outpatient (CLI) | payer OTHER, SELFPAY ==
--- NOTE | ~2023-06-29 | CT_ITS ---
EXAMINATION: CT abdomen pelvis wo con DATE: 06/29/2023 15:20 INDICATION: Incisional hernia without obstruction TECHNIQUE: Computed tomography (CT) of the abdomen and pelvis was performed without intravenous contr ast. The dose-length product (DLP) was 399.22 mGy-cm. Automated exposure control and iterative recons truction technique were employed. COMPARISON: 01/04/2022 FINDINGS: Minimal dependent atelectasis is present in the lung bases. The heart size is normal. There are changes of cholecystectomy. Punctate calcifications in otherwise normal appearing liver and sple en likely represent healed granulomatous disease. The liver, pancreas, and adrenal glands are normal. Cysts of the kidneys measure up to 1.8 cm on the right. There are changes of right hemicolectomy. Th ere is diastases of the rectus abdominis muscles just above the umbilicus the small amount of the dis karen stomach protruding. No pathologically enlarged abdominal or pelvic lymph nodes are identified. No free intraperitoneal gas or evidence of bowel obstruction. There are surgical changes from L4 throug h S1. IMPRESSION: 1. Diastases of the rectus abdominis muscles with small amount of the distal stomach protruding. Reviewed, dictated and finalized at location B. IMPRESSION: 1. Diastases of the rectus abdominis muscles with small amount of the distal st omach protruding.
== END 2023-06-29 14:59 | disposition home or self-care (01) ==
LOC: ANHIMG 15:02
PROVIDERS: PCP Family Medicine; Visit Provider Surgery
DX: K43.2 Incisional hernia without obstruction or gangrene (principal); M62.08 Separation of muscle (nontraumatic), other site
CPT/HCPCS: 74150; 74176

== ENCOUNTER 2023-08-27 11:19 | Outpatient (CLI) | payer OTHER, SELFPAY ==
[2023-08-27 12:13] LABS: Anion Gap 9 mmol/L (8-16); Blood Urea Nitrogen 20 mg/dL (7-17); Carbon Dioxide 26 mmol/L (22-30); Chloride 101 mmol/L (98-107); Estimated Glomerular Filt Rate > 60; Glucose 208 mg/dL (65-110); Potassium 4.3 mmol/L (3.4-5.0); Sodium 136 mmol/L (137-145)
== END 2023-08-27 11:20 | disposition home or self-care (01) ==
PROVIDERS: Anesthesiology; PCP Nurse Practitioner Adult Health; Visit Provider Surgery
DX: Z01.818 Encounter for other preprocedural examination (principal); E11.9 Type 2 diabetes mellitus without complications; K43.2 Incisional hernia without obstruction or gangrene
CPT/HCPCS: 36415; 80048; 86850; 86900; 86901

== ENCOUNTER 2023-08-30 14:51 | Observation (INO) | payer OTHER, SELFPAY ==
[2023-08-23 14:53] VITALS: BMI 23.5
--- NOTE | 2023-08-23 15:03 | PC.NURSE ---
Report to the Outpatient Waiting Room, entrance under the green pavilion located off [facility], at time 6:00 on date 08/29/23. Planned Procedure Time: 7:30. Time changes happen often and if your time is changed the preop area will call you the afternoon before. - You and your visitor will be asked to self-screen and do not enter if you have any COVID symptoms. - A mask is optional within the hospital at this time. Patients may have clear liquids (water, carbonated beverages, clear teas, apple juice) until 3 hours prior to surgery (4:30) with a maximum of 20 ounces. - No food from midnight until time of surgery Take the following medications with a SIP of water the morning of surgery: INHALERS, FLUOXETINE, GABAPENTIN, LEVOTHYROXINE, METOPROLOL, PAIN PILL IF NEEDED DO NOT STOP ANY OF YOUR OTHER PRESCRIPTION MEDICATIONS PRIOR TO SURGERY ?EXCEPT THE FOLLOWING Medications to discontinue per physician: VITAMINS/SUPPLEMENTS Date to take last dose: 08/25/23 Please no make-up, nail [place] citizen, hairspray, perfume, deodorant, or body powder the day of surgery. No jewelry (including any body piercings) or valuables the day of surgery, leave them at home. Please take a shower or bath the night before, or the morning of, surgery with an antibacterial soap. Wear comfortable, loose fitting clothing. - Jewelry must be removed prior to entering the operating room. Rings and piercings that are not removed may be cut off. - The hospital will not accept responsibility for valuables. - Please leave all valuables, including medications, at home the day of surgery. If you are going home after surgery, a licensed goat driver must drive you home. - NO public transportation without another adult if you receive anesthesia. - We recommend that an adult stay with you for 24 hours following discharge. - We also recommend that you do not drive, make important decision, drink alcoholic beverages, or take any drugs that were not prescribed by your health care provider for at least 24 hours after your discharge time. Follow any additional instructions given to you from your surgeon. If you or anyone in your household have experienced Covid symptoms in the past week, please notify your surgeon or the nurse liaison at the phone number below for possible testing. Telephone instructions given to PT - BIJAN STACK and asked if any additional questions and then verbalized understanding. Patient advised to call surgeon office or pre surgery nurse liaison [phone] if any additional questions.
[2023-08-29] VITALS (20 sets, daily range): BP systolic 84–123; BP diastolic 40–86; PULSE 53–76; RESP 12–18; TEMP 35.8–36.9; O2SAT 93–100
[2023-08-29] MEDS: KETOROLAC 15 MG/ML VIAL (*BKC) IV PUSH (06:30)
[2023-08-29] MEDS: ACETAMINOPHEN 500 MG TABLET 1000 MG PO ×4 (06:30→23:31)
[2023-08-29] MEDS: LACTATED RINGERS 1,000 ML 30 ML IV CONT ×2 (06:30→09:27)
--- NOTE | 2023-08-29 07:14 | WPDANESEPPF ---
Anes - Initial Pre Proc Eval Procedure: Operation Date: 08/29/23 07:30 Proposed Procedures p Laparoscopic Recurrent Incisional Hernia Repair with Mesh, Davinci Assisted - Aris Marie DO Date/Time: 08/29/23 07:14 Surgeon: Aris Marie DO Pre Op Diagnosis: Recurrent Incisional Hernia Patient Data Age: 62 Gender: F Height: 1.6 m Weight: 60.3 kg Allergies Allergy/AdvReac Type Severity Reaction Status Date / Time Sulfa (Sulfonamide Allergy Unknown Nausea and Verified 08/23/23 14:46 Antibiotics) Vomiting Home Medications Medication Instructions Recorded Confirmed Type atorvastatin 40 mg tablet 40 mg PO DAILY 09/18/19 08/23/23 History famotidine 40 mg tablet 40 mg PO DAILY 09/18/19 08/23/23 History fenofibrate 160 mg tablet 160 mg PO DAILY 09/18/19 08/23/23 History levothyroxine 50 mcg tablet 50 mcg PO DAILY 09/18/19 08/23/23 History metoprolol tartrate 50 mg tablet 25 mg PO BID 09/18/19 08/23/23 History aspirin 81 mg tablet,delayed 81 mg PO DAILY 11/25/19 08/23/23 History release estradiol 1 mg tablet 0.5 mg PO DAILY 05/04/20 08/23/23 History potassium chloride 10 mEq 10 meq PO DAILY 05/04/20 08/23/23 History tablet,extended release ropinirole 0.5 mg tablet 0.5 mg PO TID 05/04/20 08/23/23 History trazodone 100 mg tablet 100 mg PO QHS #0 tabs 01/13/22 08/23/23 Rx oxycodone-acetaminophen 10 mg-325 1 tablet PO Q6H PRN pain 04/27/22 08/23/23 History mg tablet immune glob G 40 gram/400 500 ml IV MONTHLY 06/26/22 08/23/23 History mL(10%)-gly-IgA ave 46 mcg/mL injection soln (Gamunex-C) albuterol sulfate 2.5 mg/3 mL 2.5 mg (3 mL) inhalation QID PRN 10/31/22 08/23/23 Rx (0.083 %) solution for nebulization shortness of breath or wheezing #360 mL Daliresp 500 mcg tablet 500 mcg PO DAILY 90 days #90 tabs 11/29/22 08/23/23 Rx (roflumilast) fluoxetine 20 mg tablet 20 mg PO DAILY 01/27/23 08/23/23 History gabapentin 400 mg capsule 400 mg PO BID 01/27/23 08/23/23 History (Neurontin) budesonide 160 mcg-glycopyr 9 2 inh inhalation BID 08/23/23 08/23/23 History mcg-formot 4.8 mcg/actuation HFA inhaler (Breztri Aerosphere) empagliflozin 25 mg tablet 25 mg PO DAILY 08/23/23 08/23/23 History (Jardiance) liraglutide 0.6 mg/0.1 mL (18 mg/3 1.8 mg subcut DAILY 08/23/23 08/23/23 History mL) subcutaneous pen injector (Victoza 2-Sena) Patient hx anesthesia problems: none Family hx anesthesia problems: none Results Review: All pre-operative results and documents have been reviewed as part of the pre-operative evaluation. [facility] Past Medical History Medical History Allergic rhinitis Anxiety Asthma Asthma CVID (common variable immunodeficiency) Diabetes mellitus Hyperlipidemia Hypertension TATUM (obstructive sleep apnea) RLS (restless legs syndrome) Stroke ~14 mon ago Thyroid disease Tobacco abuse Surgical History Surgical History H/O hemicolectomy 01/08/2022 Family History Family History Sibling Cancer Mother Cancer of kidney Other Cerebrovascular accident Diabetes mellitus Heart disease Hypertension Social History Social History Smoking packs per day: 0.5 Smoking cigarettes per day: 10.0 Years smoked: 44 Smoking pack-years: 22.00 Smoking status: Current every day smoker Tobacco type: cigarettes Second hand tobacco smoke exposure: Yes Alcohol intake: never Substance use: never Substance use type: does not use Lack of Transportation: No Lack of Food: Never True Current Housing: I Have Housing Concerned About Future Housing: No Difficulty Paying Gas/Electric Bills: No Difficulty Paying for Meds: No Currently Unemployed: No Education: Associate Degree Difficulty w/
--- NOTE | 2023-08-29 07:14 | PM.IMHP ---
H&P: HPI History of Present Illness Date/Time: 08/29/23 07:14 Chief Complaint: Recurrent incisional hernia Narrative: 62 yo woman presents for recurrent incisional hernia repair. She has hx of open right hemicolectomy and had a hx of incisional hernia prior to that. CT showed evidence of a recurrent incisional hernia. She reports no changes since last seen in office. Review of Systems Review of Systems: All systems reviewed & are unremarkable except as noted in HPI and below Constitutional: Constitutional: Denies chills, Denies fever(s), Denies headache(s) and Denies weight loss Eyes: Eyes: Denies change in vision ENT: Denies dizziness, Denies headache(s), Denies neck mass and Denies throat swelling Cardiovascular: Cardiovascular: Denies chest pain, Denies lightheadedness and Denies dyspnea Respiratory: Respiratory: Denies cough, Denies dyspnea and Denies wheezing Gastrointestinal: Gastrointestinal: Denies abdominal pain, Denies change in bowel habits, Denies nausea and Denies vomiting Genitourinary: Genitourinary: Denies hematuria and Denies dysuria Musculoskeletal: Musculoskeletal: Reports as per HPI Integumentary/Breasts: Skin/Breast: Reports as per HPI Neurologic: Denies dizziness and Denies headache(s) Allergic/Immunologic: Allergic/Immunologic: Denies throat swelling and Denies wheezing PMFSH Past Medical History Medical History Allergic rhinitis Anxiety Asthma Asthma CVID (common variable immunodeficiency) Diabetes mellitus Hyperlipidemia Hypertension TATUM (obstructive sleep apnea) RLS (restless legs syndrome) Stroke ~14 mon ago Thyroid disease Tobacco abuse Surgical History Surgical History H/O hemicolectomy 01/08/2022 Family History Family History Sibling Cancer Mother Cancer of kidney Other Cerebrovascular accident Diabetes mellitus Heart disease Hypertension Social History Social History Smoking packs per day: 0.5 Smoking cigarettes per day: 10.0 Years smoked: 44 Smoking pack-years: 22.00 Smoking status: Current every day smoker Tobacco type: cigarettes Second hand tobacco smoke exposure: Yes Alcohol intake: never Substance use: never Substance use type: does not use Lack of Transportation: No Lack of Food: Never True Current Housing: I Have Housing Concerned About Future Housing: No Difficulty Paying Gas/Electric Bills: No Difficulty Paying for Meds: No Currently Unemployed: No Education: Associate Degree Difficulty w/ Childcare or Family Care: No Living arrangements: alone Gender identity (if verbalized by the patient): Female Spiritual care concerns: No Meds Home Medications and Allergies Home Medications Medication Instructions Recorded Confirmed Type atorvastatin 40 mg tablet 40 mg PO DAILY 09/18/19 08/23/23 History famotidine 40 mg tablet 40 mg PO DAILY 09/18/19 08/23/23 History fenofibrate 160 mg tablet 160 mg PO DAILY 09/18/19 08/23/23 History levothyroxine 50 mcg tablet 50 mcg PO DAILY 09/18/19 08/23/23 History metoprolol tartrate 50 mg tablet 25 mg PO BID 09/18/19 08/23/23 History aspirin 81 mg tablet,delayed 81 mg PO DAILY 11/25/19 08/23/23 History release estradiol 1 mg tablet 0.5 mg PO DAILY 05/04/20 08/23/23 History potassium chloride 10 mEq 10 meq PO DAILY 05/04/20 08/23/23 History tablet,extended release ropinirole 0.5 mg tablet 0.5 mg PO TID 05/04/20 08/23/23 History trazodone 100 mg tablet 100 mg PO QHS #0 tabs 01/13/22 08/23/23 Rx oxycodone-acetaminophen 10 mg-325 1 tablet PO Q6H PRN pain 04/27/22 08/23/23 History mg tablet immune glob G 40 gram/400 500 ml IV MONTHLY 06/26/22 08/23/23 History mL(10%)-gly-IgA ave 46 mcg/mL injection soln (Gamunex
--- NOTE | 2023-08-29 07:16 | WPDHPUPDATE1 ---
History and Physical Update Update Date/Time: 08/29/23 07:16 History and Physical has been reviewed, including an updated exam of the patient. There are NO changes in the patient's condition. Risks, benefits, and alternatives have been discussed and questions answered. Patient agrees to proceed with procedure.
[2023-08-29 07:20] LABS: Glucose Point of Care 121 mg/dl (65-105)
[2023-08-29] MEDS: ceFAZolin 2 GM/D5W 50 ML 2 GM/50 ML BAG IVPB (07:27)
[2023-08-29] MEDS: BUPIVACAINE/EPINEPHRINE 0.5% 50 ML VIAL 30 ML INFILTRATE (08:06)
--- NOTE | 2023-08-29 09:21 | W.PM.PROC2 ---
Procedure Note - Detailed Date of Procedure 08/29/23 Pre-op Diagnosis Recurrent Incisional Hernia Post-op Diagnosis Same (5 cm reducible recurrent incisional hernia) Procedure Performed Laparoscopic 5 cm reducible recurrent incisional hernia repair with mesh, da Kiko assisted Surgeon Aris Marie DO Anesthesia General and Local (0.5% bupivacaine with epinephrine) Indications This is a 62-year-old woman who presented with pain and swelling superior to her umbilicus that had been present for the last several months. She has a history of incisional hernia repair many years ago, and then 18 months ago she underwent exploratory laparotomy and right hemicolectomy for a distal small-bowel obstruction. He was doing well initially postoperatively but then developed a recurrent bulge superior to her umbilicus. She was noted to have about a 5-6 cm hernia on physical exam. Discussions were made with the patient about treatment options and decision was made to proceed with robotic assisted laparoscopic recurrent incisional hernia repair with mesh. Findings Laparoscopic recurrent incisional hernia repair with mesh was performed. The patient had some adhesions from her prior surgeries but most of these involved omentum. The hernia was identified just superior to the umbilicus and measured 5 cm wide by about 4.5 cm vertical. A robotic intraperitoneal onlay mesh (rIPOM) technique was used for repair. The fascia was closed using 1-Stratafix running absorbable suture. I then placed a Ventralight ST 20 cm x 15 cm mesh and secured this circumferentially using 2-0 Stratafix running absorbable suture. There was 1 area of bleeding as the mesh was secured to the abdominal wall in the right lower quadrant. A small hematoma developed within the preperitoneal space but then this appeared to stabilize as the sutures were pulled taut. No further bleeding was identified after the suture approximation of the mesh was complete. Description of Procedure Procedure as well as risks, benefits, and alternatives were discussed with the patient. Written consent was obtained and placed in chart prior to procedure. Patient was brought back to surgical suite. She was placed supine on operating table. Time-out was done to confirm patient and procedure. She was then intubated by the anesthesia department. A bump was placed under her left hip, and the bed was flexed slightly to extend the space between her costal margin and iliac crest. Her abdomen was prepped and draped in sterile fashion using chlorhexidine prep. A 12 millimeter incision was made in the left upper quadrant, and a 5 millimeter Optiview trocar was advanced through the abdominal layers under direct visualization. Once inside the abdominal cavity, carbon dioxide insufflation was used to create a pneumoperitoneum. Her abdomen was inspected. An 8 millimeter incision was made in the left lower quadrant, and an 8 millimeter robotic trocar was placed under direct visualization. Another 8 millimeter incision was made in the left lateral abdomen, and an 8 millimeter robotic trocar was placed under direct visualization. 0.5% bupivacaine with epinephrine was infiltrated around each port site. The 5 millimeter port was removed, and a 12 mm robotic trocar was placed under direct visualization. The robotic arms were brought up to the patient's bedside and secured to the ports. The camera and instruments were inserted, and I then moved over to the robotic console and took control of the camera and instruments. After careful thorough inspection of the abdominal cavity, I began my dissection at the hernia. The adhesions were taken down using scissors with electrocautery. I then also took the falciform ligament down for several cm cephalad to allow for adequate mesh placement. I then measured the hernia size. The hernia measured 5 cm wide by 4.5 cm vertical. The fascia was closed using an 1-Stratafix running suture in a vertical fashio
[2023-08-29] MEDS: fentaNYL CITRATE INJ (*CRX) 100 MCG/2 ML VIAL 25 MCG IV PUSH ×6 (09:41→11:11)
[2023-08-29] MEDS: HYDROmorphone HCL INJ (*CRX) 1 MG/ML SYR 0.5 MG IV PUSH ×7 (09:58→20:59)
--- NOTE | 2023-08-29 10:37 | SUR.PHASEI ---
1030: Patient meets PACU discharge criteria, unit bed unavailable at this time. Patient placed in extended recovery status.
[2023-08-29 11:11] LABS: Glucose Point of Care 171 mg/dl (65-105)
[2023-08-29] MEDS: LACTATED RINGERS 1,000 ML 100 ML IV CONT (11:43)
--- NOTE | 2023-08-29 11:45 | PC.NURSE ---
This patient, Alma Anderson, was admitted to 3 Med Surg Room 331-02. Patient/family oriented to hospital policies and general routines including ID bracelet, bed and alarms, visiting hours, pain management, procedures, bathroom and other care routines, personal items, smoking policy, room service/diet, and visiting hours. Information on how to activate the Rapid Response Team has been discussed. Patient/Family are encouraged to report perceived risks to care and to ask questions if they do not understand what they are told or what they should do.
[2023-08-29] MEDS: POTASSIUM CHLORIDE 10 MEQ ER TABLET PO (13:08)
[2023-08-29] MEDS: FAMOTIDINE 20 MG TABLET 40 MG PO (13:08)
[2023-08-29] MEDS: EMPAGLIFLOZIN 25 MG TABLET PO (13:09)
[2023-08-29] MEDS: ROFLUMILAST 500 MCG TABLET PO (13:12)
[2023-08-29] MEDS: rOPINIRole HCL 0.5 MG TABLET PO ×2 (13:12→20:24)
[2023-08-29] MEDS: oxyCODONE HCL (*CRX) 5 MG TAB IR 15 MG PO ×2 (13:13→19:06)
[2023-08-29] MEDS: HYDROmorphone HCL INJ (*CRX) 1 MG/ML SYR IV PUSH ×3 (16:06→23:32)
[2023-08-29] MEDS: GABAPENTIN 400 MG CAPSULE PO (16:55)
[2023-08-29] MEDS: ONDANSETRON INJ 4 MG/2 ML VIAL IV PUSH (17:04)
[2023-08-29] MEDS: IBUPROFEN IV 800 MG/200 ML 800 MG/200 ML BAG 400 MG IVPB ×2 (17:04→23:32)
[2023-08-29 17:20] LABS: Glucose Point of Care 189 mg/dl (65-105)
[2023-08-29] MEDS: traZODone HCL 50 MG TABLET 100 MG PO (20:24)
[2023-08-29] MEDS: ATORVASTATIN 40 MG TABLET PO (20:24)
[2023-08-29] MEDS: METOPROLOL TARTRATE 25 MG TABLET PO (20:25)
[2023-08-29 22:35] LABS: Glucose Point of Care 179 mg/dl (65-105)
[2023-08-30] VITALS (10 sets, daily range): BP systolic 90–133; BP diastolic 45–63; PULSE 61–94; RESP 16–18; TEMP 35.8–36.3; O2SAT 91–98; BMI 23.7
[2023-08-30] MEDS: ACETAMINOPHEN 500 MG TABLET 1000 MG PO ×4 (05:30→23:07)
[2023-08-30] MEDS: IBUPROFEN IV 800 MG/200 ML 800 MG/200 ML BAG 400 MG IVPB ×4 (05:30→23:06)
[2023-08-30] MEDS: oxyCODONE HCL (*CRX) 5 MG TAB IR 15 MG PO ×2 (05:31→11:03)
[2023-08-30] MEDS: LEVOTHYROXINE SODIUM 50 MCG TABLET PO (05:34)
[2023-08-30 06:50] LABS: Hematocrit 37.4 % (37.0-47.0); Hemoglobin 11.7 g/dL (12.0-15.0); Mean Corpuscular HGB Conc 31.3 g/dl (32-36); Mean Corpuscular Volume 89.5 fl (80-100); Mean Platelet Volume 9.8 fl (7.4-10.4); Platelet Count Result 153 k/mm3 (150-375); Red Blood Count 4.18 M/mm3 (4.2-5.4); Red Cell Distribution Width 13.3 % (11.5-14.5); White Blood Count 6.6 K/mm3 (4.5-10.0)
[2023-08-30 07:03] LABS: Anion Gap 8 mmol/L (8-16); Blood Urea Nitrogen 14 mg/dL (7-17); Calcium 8.2 mg/dL (8.4-10.2); Carbon Dioxide 26 mmol/L (22-30); Chloride 104 mmol/L (98-107); Estimated CRCL calculation 100 ml/min; Estimated Glomerular Filt Rate > 60; Glucose 100 mg/dL (65-110); Potassium 3.6 mmol/L (3.4-5.0); Sodium 138 mmol/L (137-145)
[2023-08-30] MEDS: HYDROmorphone HCL INJ (*CRX) 1 MG/ML SYR IV PUSH ×3 (07:50→20:10)
[2023-08-30 08:13] LABS: Glucose Point of Care 98 mg/dl (65-105)
[2023-08-30] MEDS: FLUTICASONE/UMECLIDIN/VILANTER 100-62.5-25 MCG ELLIPTA 1 PUFF INHALATION (08:38)
[2023-08-30] MEDS: polyethylene glycoL 3350 17 GM POWD.PACK PO (10:18)
[2023-08-30] MEDS: rOPINIRole HCL 0.5 MG TABLET PO ×3 (10:20→16:44)
[2023-08-30] MEDS: ROFLUMILAST 500 MCG TABLET PO (10:22)
[2023-08-30] MEDS: GABAPENTIN 400 MG CAPSULE PO ×2 (10:22→16:43)
[2023-08-30] MEDS: FLUoxetine HCL 20 MG CAPSULE PO (10:22)
[2023-08-30] MEDS: ASPIRIN 81 MG ENTERIC TABLET PO (10:22)
[2023-08-30] MEDS: EMPAGLIFLOZIN 25 MG TABLET PO (10:23)
[2023-08-30] MEDS: POTASSIUM CHLORIDE 10 MEQ ER TABLET PO (10:23)
[2023-08-30] MEDS: FAMOTIDINE 20 MG TABLET 40 MG PO (10:23)
--- NOTE | 2023-08-30 11:15 | WPDANESPN ---
Anes - Prog Note Post-Op Date/Time: 08/30/23 11:15 Cardiovascular status: normal Respiratory status: normal Airway patency: baseline Mental status: baseline Post-Op hydration status: normal Vital Signs: Last Vital Signs Temp 36.3 C L 08/30/23 08:00 Pulse 68 08/30/23 10:21 Resp 18 08/30/23 08:39 BP 111/53 L 08/30/23 08:00 Pulse Ox 93 08/30/23 08:39 O2 Del Method Room Air 08/30/23 08:39 O2 Flow Rate 1 08/29/23 20:00 Pain Score (VAS): 11/24 I/O: Intake & Output 08/29/23 08/30/23 08/30/23 23:59 07:59 15:59 Intake Total 1900 800 240 Output Total 2500 Balance 1900 -1700 240 Laboratory Tests 08/30/23 06:25 08/30/23 06:25 08/29/23 08/29/23 08/30/23 17:03 22:11 06:25 WBC 6.6 RBC 4.18 L Hgb 11.7 L D Hct 37.4 MCV 89.5 MCH 28.0 MCHC 31.3 L RDW 13.3 Plt Count 153 MPV 9.8 Sodium 138 Potassium 3.6 Chloride 104 Carbon Dioxide 26 Anion Gap 8 BUN 14 D Creatinine 0.40 L Estim Creat Clear Calc 100 Estimated GFR > 60 Glucose 100 POC Capillary Glucose 189 H 179 H Calcium 8.2 L 08/30/23 08:08 WBC RBC Hgb Hct MCV MCH MCHC RDW Plt Count MPV Sodium Potassium Chloride Carbon Dioxide Anion Gap BUN Creatinine Estim Creat Clear Calc Estimated GFR Glucose POC Capillary Glucose 98 Calcium Post-procedural complaints: none Patient Feedback: Patient satisfied with anesthetic care.
--- NOTE | 2023-08-30 11:38 | PM.PNGS ---
Progress Note: A&P Assessment and Plan (1) Recurrent incisional hernia: Code(s): K43.2 - Incisional hernia without obstruction or gangrene Status: Acute Assessment and Plan: Patient having uncontrolled pain despite being on Oxycodone 15 mg q6h. Had lengthy discussion with patient about pain expectations and goals. She is not going to be pain free after surgery, but we want to control pain enough to allow for some activity such as walking in the halls and getting up to the bathroom. Will increase oxycodone to 20 mg q6h for severe pain. Continue to monitor. Possibly home tomorrow if pain better controlled. (2) Acute exacerbation of chronic obstructive airways disease: Code(s): J44.1 - Chronic obstructive pulmonary disease with (acute) exacerbation Status: Acute (3) Narcotic dependence: Code(s): F11.20 - Opioid dependence, uncomplicated Status: Acute Subjective Subjective Date/Time Seen: 08/30/23 11:38 Interval history: Still experiencing a lot of breakthru abdominal pain. Tolerating diet. Ambulating a little so far. Exam GI: Inspection: non-distended GI Palp: Yes Soft to palpation and Yes Tenderness to palpation present (GI) (incisional) Objective Data Vital Signs Vital Signs: Vital Signs - 24 hr 08/29/23 11:50 08/29/23 12:20 08/29/23 11:50 Temperature 36.9 C 36.9 C Pulse Rate 63 62 Respiratory Rate 16 18 Blood Pressure 98/40 L 107/42 L Pulse Oximetry 95 95 96 Oxygen Delivery Nasal Cannula Oxygen Flow Rate 2 08/29/23 14:54 08/29/23 13:05 08/29/23 16:00 Temperature 36.7 C 36.1 C L Pulse Rate 58 L 68 70 Respiratory Rate 18 16 16 Blood Pressure 103/48 L 103/48 L 119/57 L Pulse Oximetry 96 98 94 Oxygen Delivery Oxygen Flow Rate 08/29/23 15:30 08/29/23 20:25 08/29/23 20:00 Temperature Pulse Rate 75 75 Respiratory Rate 16 Blood Pressure Pulse Oximetry 94 95 Oxygen Delivery Nasal Cannula Nasal Cannula Oxygen Flow Rate 1 1 08/29/23 20:46 08/30/23 01:36 08/29/23 20:00 Temperature 35.8 C L Pulse Rate 76 76 53 L Respiratory Rate 12 Blood Pressure 116/66 Pulse Oximetry 94 95 94 Oxygen Delivery CPAP CPAP Oxygen Flow Rate 08/30/23 00:00 08/30/23 01:00 08/30/23 04:52 Temperature 36.3 C L Pulse Rate 94 Respiratory Rate 18 Blood Pressure 90/50 L 96/46 L 106/45 L Pulse Oximetry 92 Oxygen Delivery Oxygen Flow Rate 08/30/23 04:00 08/30/23 08:39 08/30/23 08:39 Temperature 35.8 C L Pulse Rate 61 Respiratory Rate 16 18 Blood Pressure 119/63 Pulse Oximetry 93 93 Oxygen Delivery Room Air Oxygen Flow Rate 08/30/23 08:00 08/30/23 10:21 Temperature 36.3 C L Pulse Rate 65 68 Respiratory Rate 16 Blood Pressure 111/53 L Pulse Oximetry 91 Oxygen Delivery Oxygen Flow Rate Intake/Output Intake/Output: Intake & Output 08/27/23 08/28/23 08/29/23 08/30/23 23:59 23:59 23:59 23:59 Intake Total 3130 1040 Output Total 2500 Balance 3130 -1460 Meds/Results Medications: Active Medications Generic Name Dose Route Start Last Admin Trade Name Freq PRN Reason Stop Dose Admin Acetaminophen 1,000 mg 08/29/23 12:00 08/30/23 05:30 Acetaminophen 500 Mg Tablet PO 1,000 mg Q6HR LISY Administration Albuterol 2.5 mg 08/29/23 11:26 Albuterol Sulfate Neb 2.5 Mg/3 Ml Inh INHALATION QID PRN shortness of breath or wheezing Aspirin 81 mg 08/30/23 09:00 08/30/23 10:22 Aspirin 81 Mg Enteric Tablet PO 81 mg DAILY LISY Administration Atorvastatin Calcium 40 mg 08/29/23 21:00 08/29/23 20:24 Atorvastatin 40 Mg Tablet PO 40 mg HS LISY Administration Empagliflozin 25 mg 08/29/23 12:00 08/30/23 10:23 Empagliflozin 25 Mg Tablet PO 25 mg DAILY LISY Administration Famotidine 40 mg 08/29/23 12:00 08/30/23 10:23 Famotidine 20 Mg Tablet PO 40 mg DAILY LISY Administration Fluoxetine HCl 20 mg 08/29/23 12:00 08/30
[2023-08-30 11:42] LABS: Glucose Point of Care 115 mg/dl (65-105)
[2023-08-30] MEDS: oxyCODONE HCL (*CRX) 5 MG TAB IR 20 MG PO ×2 (16:44→23:07)
[2023-08-30 17:00] LABS: Glucose Point of Care 119 mg/dl (65-105)
[2023-08-30] MEDS: ATORVASTATIN 40 MG TABLET PO (20:09)
[2023-08-30] MEDS: traZODone HCL 50 MG TABLET 100 MG PO (20:09)
[2023-08-30 21:27] LABS: Glucose Point of Care 142 mg/dl (65-105)
[2023-08-31] VITALS (8 sets, daily range): BP systolic 85–135; BP diastolic 36–58; PULSE 63–100; RESP 14–18; TEMP 35.9–37.6; O2SAT 90–93
[2023-08-31] MEDS: HYDROmorphone HCL INJ (*CRX) 1 MG/ML SYR IV PUSH (02:09)
[2023-08-31] MEDS: ONDANSETRON INJ 4 MG/2 ML VIAL IV PUSH ×2 (04:57→08:36)
[2023-08-31] MEDS: oxyCODONE HCL (*CRX) 5 MG TAB IR 20 MG PO ×3 (04:57→17:24)
[2023-08-31] MEDS: ACETAMINOPHEN 500 MG TABLET 1000 MG PO ×3 (07:00→17:25)
[2023-08-31] MEDS: LEVOTHYROXINE SODIUM 50 MCG TABLET PO (07:00)
[2023-08-31] MEDS: FLUTICASONE/UMECLIDIN/VILANTER 100-62.5-25 MCG ELLIPTA 1 PUFF INHALATION (07:44)
[2023-08-31 08:01] LABS: Glucose Point of Care 98 mg/dl (65-105)
[2023-08-31] MEDS: polyethylene glycoL 3350 17 GM POWD.PACK PO (08:36)
[2023-08-31] MEDS: FAMOTIDINE 20 MG TABLET 40 MG PO (08:39)
[2023-08-31] MEDS: METOPROLOL TARTRATE 25 MG TABLET PO ×2 (08:39→19:59)
[2023-08-31] MEDS: EMPAGLIFLOZIN 25 MG TABLET PO (08:39)
[2023-08-31] MEDS: ROFLUMILAST 500 MCG TABLET PO (08:39)
[2023-08-31] MEDS: rOPINIRole HCL 0.5 MG TABLET PO ×3 (08:40→19:59)
[2023-08-31] MEDS: POTASSIUM CHLORIDE 10 MEQ ER TABLET PO (08:40)
[2023-08-31] MEDS: GABAPENTIN 400 MG CAPSULE PO ×2 (08:40→17:25)
[2023-08-31] MEDS: ASPIRIN 81 MG ENTERIC TABLET PO (08:40)
[2023-08-31] MEDS: FLUoxetine HCL 20 MG CAPSULE PO (08:40)
[2023-08-31 12:00] LABS: Glucose Point of Care 138 mg/dl (65-105)
--- NOTE | 2023-08-31 14:29 | PM.PNGS ---
Progress Note: A&P Assessment and Plan (1) Encounter for follow-up: Code(s): Z09 - Encounter for follow-up examination after completed treatment for conditions other than malignant neoplasm Status: Acute Assessment and Plan: Slowly improving, but still having difficulty with pain control. Ordered scheduled oral Ibuprofen. Will order Mucinex for cough. Stimulate bowels. Increase activity. Hopefully home tomorrow. (2) Other specified postprocedural states: Code(s): Z98.890 - Other specified postprocedural states Status: Acute (3) Narcotic dependence: Code(s): F11.20 - Opioid dependence, uncomplicated Status: Acute (4) Hypertension: Code(s): I10 - Essential (primary) hypertension Status: Acute Subjective Subjective Date/Time Seen: 08/31/23 14:29 Interval history: Patient still in a lot of pain. Having to cough a lot which is making pain worse. Tolerating diet. Exam GI: Inspection: non-distended and incision (intact with glue) GI Palp: Yes Soft to palpation, Yes Tenderness to palpation present (GI) (incisional) and No Hernia present Objective Data Vital Signs Vital Signs: Vital Signs - 24 hr 08/30/23 20:00 08/30/23 22:00 08/31/23 02:09 Temperature 35.8 C L Pulse Rate 68 Respiratory Rate 16 Blood Pressure 100/55 L 107/45 L Pulse Oximetry 95 Oxygen Delivery Room Air 08/31/23 06:00 08/31/23 08:00 08/31/23 08:39 Temperature 36.1 C L 37.6 C Pulse Rate 91 88 100 Respiratory Rate 14 16 Blood Pressure 116/58 L 135/52 L Pulse Oximetry 90 91 Oxygen Delivery 08/31/23 08:40 Temperature Pulse Rate Respiratory Rate Blood Pressure Pulse Oximetry Oxygen Delivery Room Air Intake/Output Intake/Output: Intake & Output 08/28/23 08/29/23 08/30/23 08/31/23 23:59 23:59 23:59 23:59 Intake Total 3130 2790 640 Output Total 2500 Balance 3130 290 640 Meds/Results Medications: Active Medications Generic Name Dose Route Start Last Admin Trade Name Freq PRN Reason Stop Dose Admin Acetaminophen 1,000 mg 08/29/23 12:00 08/31/23 12:08 Acetaminophen 500 Mg Tablet PO 1,000 mg Q6HR LISY Administration Albuterol 2.5 mg 08/29/23 11:26 Albuterol Sulfate Neb 2.5 Mg/3 Ml Inh INHALATION QID PRN shortness of breath or wheezing Aspirin 81 mg 08/30/23 09:00 08/31/23 08:40 Aspirin 81 Mg Enteric Tablet PO 81 mg DAILY [facility] Administration Atorvastatin Calcium 40 mg 08/29/23 21:00 08/30/23 20:09 Atorvastatin 40 Mg Tablet PO 40 mg HS [facility] Administration Empagliflozin 25 mg 08/29/23 12:00 08/31/23 08:39 Empagliflozin 25 Mg Tablet PO 25 mg DAILY [facility] Administration Famotidine 40 mg 08/29/23 12:00 08/31/23 08:39 Famotidine 20 Mg Tablet PO 40 mg DAILY [facility] Administration Fluoxetine HCl 20 mg 08/29/23 12:00 08/31/23 08:40 Fluoxetine Hcl 20 Mg Capsule PO 20 mg DAILY [facility] Administration Fluticasone/Umeclidinium/Vilanterol 1 puff 08/30/23 08:00 08/31/23 07:44 Fluticasone/Umeclidin/Vilanter 100-62.5-25 Mcg [facility]a [facility] Gabapentin 400 mg 08/29/23 17:00 08/31/23 08:40 Gabapentin 400 Mg Capsule PO 400 mg BID [facility] Administration Guaifenesin 1,200 mg 08/31/23 14:30 Guaifenesin 12 Hr 600 Mg Tabcr PO Q12HR [facility] Hydromorphone HCl 0.5 mg 08/29/23 11:26 08/29/23 20:59 Hydromorphone Hcl Inj (*Crx) 1 Mg/Ml Syr IV PUSH 0.5 mg Q2H PRN Administration Pain Rated 4-6 Hydromorphone HCl 1 mg 08/29/23 11:26 08/31/23 02:09 Hydromorphone Hcl Inj (*Crx) 1 Mg/Ml Syr IV PUSH 1 mg Q2H PRN Administration Pain Rated 7-10 Ibuprofen 800 mg 08/31/23 14:20 Ibuprofen 400 Mg Tablet PO Q8HR [facility] Levothyroxine Sodium 50 mcg 08/30/23 06:30 08/31/23 07:00 Levothyroxine Sodium 50 Mcg Tablet PO 50 mcg DAILY@0630 [facility] Administration Metoprolol Tartrate 25 mg 08/29/23 21:
[2023-08-31] MEDS: IBUPROFEN 400 MG TABLET 800 MG PO ×2 (15:08→20:06)
[2023-08-31] MEDS: guaiFENesin 12 HR 600 MG TABCR 1200 MG PO (15:08)
[2023-08-31 17:35] LABS: Glucose Point of Care 93 mg/dl (65-105)
[2023-08-31] MEDS: traZODone HCL 50 MG TABLET 100 MG PO (19:59)
[2023-08-31] MEDS: ATORVASTATIN 40 MG TABLET PO (19:59)
[2023-08-31 21:00] LABS: Glucose Point of Care 176 mg/dl (65-105)
[2023-09-01] MEDS: LEVOTHYROXINE SODIUM 50 MCG TABLET PO (05:33)
[2023-09-01] MEDS: ACETAMINOPHEN 500 MG TABLET 1000 MG PO (05:33)
[2023-09-01] MEDS: IBUPROFEN 400 MG TABLET 800 MG PO (05:33)
[2023-09-01 05:54] VITALS: BP 125/65; PULSE 93; RESP 125; TEMP 36.9; O2SAT 93
[2023-09-01] MEDS: oxyCODONE HCL (*CRX) 5 MG TAB IR 20 MG PO (07:17)
[2023-09-01 07:45] LABS: Glucose Point of Care 127 mg/dl (65-105)
[2023-09-01] MEDS: FLUTICASONE/UMECLIDIN/VILANTER 100-62.5-25 MCG ELLIPTA 1 PUFF INHALATION (08:06)
[2023-09-01 08:09] VITALS: RESP 20
[2023-09-01 08:32] VITALS: PULSE 84
[2023-09-01] MEDS: METOPROLOL TARTRATE 25 MG TABLET PO (08:32)
[2023-09-01] MEDS: FLUoxetine HCL 20 MG CAPSULE PO (08:32)
[2023-09-01] MEDS: ROFLUMILAST 500 MCG TABLET PO (08:32)
[2023-09-01] MEDS: rOPINIRole HCL 0.5 MG TABLET PO (08:32)
[2023-09-01] MEDS: EMPAGLIFLOZIN 25 MG TABLET PO (08:33)
[2023-09-01] MEDS: GABAPENTIN 400 MG CAPSULE PO (08:33)
[2023-09-01] MEDS: POTASSIUM CHLORIDE 10 MEQ ER TABLET PO (08:33)
[2023-09-01] MEDS: FAMOTIDINE 20 MG TABLET 40 MG PO (08:33)
[2023-09-01] MEDS: guaiFENesin 12 HR 600 MG TABCR 1200 MG PO (08:33)
[2023-09-01] MEDS: ASPIRIN 81 MG ENTERIC TABLET PO (08:34)
[2023-09-01] MEDS: polyethylene glycoL 3350 17 GM POWD.PACK PO (08:34)
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
[2023-09-01 11:34] LABS: Glucose Point of Care 150 mg/dl (65-105)
--- NOTE | 2023-09-05 10:18 | PM.DS ---
DS: Admitting Diagnosis Discharge Date 09/01/23 Admitting Diagnosis Recurrent reducible incisional ventral hernia DS: Discharge Diagnosis Discharge Diagnosis (1) Recurrent incisional hernia: Code(s): K43.2 - Incisional hernia without obstruction or gangrene Status: Acute Assessment and Plan: Patient is doing very well now postop day number 2 after robotic assisted laparoscopic recurrent incisional hernia repair with mesh by Dr. Eric lópez. Pain is much better controlled with oral pain medications. She will be discharged home today. Postoperative instructions as noted in the chart. DS: Summary Hospital Course Reason for hospitalization: Reducible recurrent ventral incisional hernia Hospital Course: Patient came to [facility] on August 29, 2023 for and elective robotic assisted laparoscopic reducible recurrent incisional hernia repair with intraperitoneal placement prosthetic mesh. The surgery was done by Dr. Aris Gusman. Details of the surgery can be found in the formally dictated operative note. Postoperatively her course in the recovery room was unremarkable. She was then transferred to the surgical floor for routine postoperative care. While on the surgical floor she did require multiple doses of IV narcotic pain medications to make her somewhat comfortable. This persisted postop day 2 and so she was kept in the hospital. She was started on liquid diet advanced to under diet as tolerated. She tolerated diet well. Her IV pain medications were stopped she was given oral narcotic pain medications which seem to manage her postoperative pain fairly well the point that on postop day 3, she was discharged home doing well on oral pain medications. Her incisions were inspected each day and they are healing well without wound complications. There is no redness or drainage. Expected mild tenderness around the incision was noted. She was discharged home with oral pain medications to be used at home in improved condition. Status at Discharge Functional status at discharge: independent ambulation Overall status at discharge: patient is progressing back to baseline Time Spent with Patient Time attestation: Total time spent providing and/or coordinating discharge services: Time spent: Less than 30 minutes Exam Const: General: comfortable and no acute distress HENMT: Ears: TM's normal bilaterally Face/Nose/Sinus: Normal nares present Mouth: Yes moist mucous membranes Eyes: General: appearance normal, both eyes and all related structures Sclera: sclerae normal Neck: Neck: supple Resp: Effort & Inspection: normal respiratory effort Auscultation: clear to auscultation bilaterally Cardio: Rate: regular rate Rhythm: regular rhythm GI: Other: Abdomen is soft and nondistended. Port site incisions in hernia repair healing well. Expected mild tenderness around the port sites and the site of the hernia repair in the mid abdomen. No redness or drainage or postoperative seroma or hematoma. No recurrent hernia. Skin: General skin exam: normal color and no rashes or lesions noted Neuro: General: gait normal Motor exam (neuro): 5/5 motor strength present throughout Sensory Exam: normal sensation Extrem: General: normal to inspection Psych: Mental Status: mental status grossly normal Affect: normal affect Discharge Plan Discharge Attending physician on discharge: Aris Gusman Consulting providers: Сергей Gallagher Sherri M. Discharging Clinician: Will Wyatt Anticipated Discharge Date/Time: 09/01/23 10:24 Patient Disposition: Home, Self-Care Activity: may shower, no straining and other - see discharge instructions Diet: regular Discharge Instructions: DISCHARGE INSTRUCTION SHEET FOR HERNIA, GALLBLADDER AND APPENDIX SURGERIES DR. GUSMAN PATIENT TO TAKE HOME 1. May shower, no soaking in bath x 2weeks. 2. Call office for: Wound
== END 2023-09-01 11:45 | disposition home or self-care (01) ==
LOC: ANHSURGERY 14:59 → ANH3MEDSUR 09-01 10:27
PROVIDERS: Admitting Provider Surgery; PCP Nurse Practitioner Adult Health; Visit Provider Surgery
PROC: (CPT 49615; principal; 2023-08-29 07:30)
DX: K43.2 Incisional hernia without obstruction or gangrene (principal); F41.9 Anxiety disorder, unspecified; J44.1 Chronic obstructive pulmonary disease with (acute) exacerbation; D83.9 Common variable immunodeficiency, unspecified; F11.20 Opioid dependence, uncomplicated; E11.9 Type 2 diabetes mellitus without complications; E78.5 Hyperlipidemia, unspecified; G47.33 Obstructive sleep apnea (adult) (pediatric); G25.81 Restless legs syndrome; E07.9 Disorder of thyroid, unspecified; I10 Essential (primary) hypertension; F17.210 Nicotine dependence, cigarettes, uncomplicated; Z98.890 Other specified postprocedural states; Z79.82 Long term (current) use of aspirin; Z79.890 Hormone replacement therapy; Z79.51 Long term (current) use of inhaled steroids; Z79.84 Long term (current) use of oral hypoglycemic drugs; Z79.85 Long-term (current) use of injectable non-insulin antidiabetic drugs; Z79.899 Other long term (current) drug therapy; Z86.73 Personal history of transient ischemic attack (TIA), and cerebral infarction without residual deficits; Z83.3 Family history of diabetes mellitus; Z82.49 Family history of ischemic heart disease and other diseases of the circulatory system
CPT/HCPCS: 49615; S2900; 36415; 80048; 82948; 85027; 94640; A9270; C1781; G0378; G0379; J0330; J0690; J1100; J1170; J1741; J1885; J2250; J2371; J2405; J2704; J3010; J7120

== ENCOUNTER 2023-10-11 01:58 | Observation (INO) | payer OTHER, SELFPAY ==
[2023-10-11] VITALS (39 sets, daily range): BP systolic 121–158; BP diastolic 53–78; PULSE 67–88; RESP 12–22; TEMP 35.9–37.1; O2SAT 84–99; BMI 22.2
--- NOTE | ~2023-10-11 | XR_ITS ---
EXAMINATION: XR chest 2V DATE: 10/11/2023 02:37 INDICATION: Dyspnea. TECHNIQUE: Frontal and lateral views of the chest were obtained. COMPARISON: Chest CT 10/11/2023, chest 2 views 05/01/2023 FINDINGS: The lungs are hyperexpanded, consistent with emphysema. A calcified right lung nodule and c alcified right hilar lymph nodes are consistent with old granulomatous disease. No pleural effusion o r pneumothorax. The heart size is normal. There are changes of anterior fusion procedure in cervical spine. IMPRESSION: 1. Emphysema. Reviewed, dictated and finalized at location E. ITAL CNA IMPRESSION: 1. Emphysema.
--- NOTE | ~2023-10-11 | CT_ITS ---
EXAMINATION: CTA chest PE protocol DATE: 10/11/2023 04:02 INDICATION: Dyspnea. TECHNIQUE: Computed tomography angiography (CTA) of the chest was performed with 100 mL Omnipaque-350 intravenous contrast timed to evaluate the pulmonary arteries. Coronal maximum intensity projection 3D-reconstructions were created by the technologist. Automated exposure control and iterative reconst ruction technique were employed. The dose-length product was 194.45 mGy-cm. COMPARISON: Chest CT 04/19/2022 FINDINGS: There is mild emphysema. There is mild atelectasis bilaterally. A calcified right lung nodu le and calcified right hilar and mediastinal lymph nodes are consistent with old granulomatous diseas e. No pleural effusion. The heart size is normal. There are coronary artery calcifications. No perica rdial effusion. There is calcified atherosclerosis of the aorta and many of the other arteries. There are changes of cholecystectomy. There is no pulmonary embolus. There is moderate thoracic spondylosi s. There are changes of anterior fusion procedure at C5-C6. IMPRESSION: 1. No pulmonary embolus. 2. Mild emphysema. Reviewed, dictated and finalized at location E. ERN ILLUSTRATOR
--- NOTE | 2023-10-11 02:03 | ECG_ITS ---
Measurements Intervals Firth Rate: 72 P: 81 MD: 183 QRS: 17 QRSD: 98 T: 72 QT: 375 QTc: 412 Interpretive Statements SINUS RHYTHM POSSIBLE RIGHT ATRIAL ENLARGEMENT [0.25mV P WAVE] POSSIBLE LEFT ATRIAL ENLARGEMENT [-0.1mV P WAVE IN V1/V2] ANTEROSEPTAL MYOCARDIAL INFARCTION , OF INDETERMINATE AGE [40+ ms Q WAVE IN V1-V4] COMPARED TO ECG 05/01/2023 16:09:33 NO SIGNIFICANT CHANGES Electronically Signed On 10-11-2023 9:16:24 [facility] by Hilda Aviles M.D.
[2023-10-11 02:16] LABS: Basophils Percent Auto 0.4 % (0.2-1.2); Eosinophils Absolute Auto 0.1 K/mm3 (0-0.3); Eosinophils Percent Auto 1.2 % (0-4.4); Hematocrit 43.7 % (37.0-47.0); Hemoglobin 13.8 g/dL (12.0-15.0); Immature Granulocyte Absolute 0.02 K/mm3 (0.00-0.031); Immature Granulocyte Percent A 0.2 % (0-0.5); Lymphocytes Absolute Auto 2.07 K/mm3 (0.9-3.2); Lymphocytes Percent Auto 24.2 % (18.3-44.2); Mean Corpuscular HGB Conc 31.6 g/dl (32-36); Mean Corpuscular Hemoglobin 27.4 pg (26-34); Mean Corpuscular Volume 86.7 fl (80-100); Mean Platelet Volume 9.5 fl (7.4-10.4); Monocytes Absolute Auto 0.6 K/mm3 (0.1-0.6); Monocytes Percent Auto 6.6 % (2.6-8.5); Neutrophils Absolute Auto 5.8 K/mm3 (1.3-6.7); Neutrophils Percent Auto 67.4 % (45.5-73.1); Platelet Count Result 234 k/mm3 (150-375); Red Blood Count 5.04 M/mm3 (4.2-5.4); Red Cell Distribution Width 13.7 % (11.5-14.5); White Blood Count 8.5 K/mm3 (4.5-10.0)
[2023-10-11 02:28] LABS: Alanine Aminotransferase 46 U/L (6-35); Albumin Level 4.2 g/dL (3.5-5.1); Alkaline Phosphatase 67 U/L (38-126); Anion Gap 4 mmol/L (8-16); Aspartate Amino Transferase 40 U/L (14-36); Bilirubin,Total 0.6 mg/dL (0.2-1.3); Blood Urea Nitrogen 20 mg/dL (7-17); Calcium 9.2 mg/dL (8.4-10.2); Carbon Dioxide 35 mmol/L (22-30); Chloride 97 mmol/L (98-107); Estimated CRCL calculation 99 ml/min; Estimated Glomerular Filt Rate > 60; Glucose 88 mg/dL (65-110); Sodium 136 mmol/L (137-145)
[2023-10-11] MEDS: ALBUTEROL SULFATE NEB 2.5 MG/3 ML INH INHALATION ×4 (02:37→20:17)
[2023-10-11] MEDS: oxyCODONE/ACETAMINOPHEN (*CRX) 5-325 MG TABLET 1 TABLET PO (02:37)
[2023-10-11] MEDS: IPRATROPIUM BR 0.02% INH SOLN 0.5 MG/2.5 ML VIAL INHALATION ×4 (02:38→20:17)
[2023-10-11 02:51] LABS: Influenza A QL RT-PCR Negative (Negative); Influenza B QL RT-PCR Negative (Negative); RSV RNA, RT-PCR Negative (Negative); SARS-CoV-2 RNA PCR Negative (Negative)
[2023-10-11 02:52] LABS: NT Pro B Type Natriuretic Pept 870 pg/mL (19.9-100); Troponin I < 0.012 ng/mL (0.000-0.034)
--- NOTE | 2023-10-11 03:38 | PC.NURSE ---
Patient's SPO2 was at 84%. Patient was placed on 2L/min of oxygen via nasal cannula. EDP Dr. Francisco notified.
--- NOTE | 2023-10-11 03:43 | ED.GENADULT ---
HPI - General Adult General Chief complaint: Shortness of Breath/Dyspnea Stated complaint: worsening sob Time Seen by Provider: 10/11/23 02:17 History of Present Illness HPI narrative: patient is 63-year-old female presents emergency department chief complaint of shortness of breath. Patient has prior history of COPD and reports that she has recently had an exacerbation and has been on a steroid taper. The patient reports that she has had several days of steroid reports her symptoms have been getting worse the patient does not require home oxygen and reports that this evening she was very short of breath and was wheezing. EMS gave her breathing treatment EN route and also notice that she was initially hypoxic in the field of the patient was started on 2 L nasal cannula Related Data Home Medications Medication Instructions Recorded Confirmed atorvastatin 40 mg tablet 40 mg PO DAILY 09/18/19 09/28/23 famotidine 40 mg tablet 40 mg PO DAILY 09/18/19 09/28/23 fenofibrate 160 mg tablet 160 mg PO DAILY 09/18/19 09/28/23 levothyroxine 50 mcg tablet 50 mcg PO DAILY 09/18/19 09/28/23 metoprolol tartrate 50 mg tablet 25 mg PO BID 09/18/19 09/28/23 aspirin 81 mg tablet,delayed 81 mg PO DAILY 11/25/19 09/28/23 release estradiol 1 mg tablet 0.5 mg PO DAILY 05/04/20 09/28/23 potassium chloride 10 mEq 10 meq PO DAILY 05/04/20 09/28/23 tablet,extended release ropinirole 0.5 mg tablet 0.5 mg PO TID 05/04/20 09/28/23 immune glob G 40 gram/400 500 ml IV MONTHLY 06/26/22 09/28/23 mL(10%)-gly-IgA ave 46 mcg/mL injection soln (Gamunex-C) fluoxetine 20 mg tablet 20 mg PO DAILY 01/27/23 09/28/23 gabapentin 400 mg capsule 400 mg PO BID 01/27/23 09/28/23 (Neurontin) budesonide 160 mcg-glycopyr 9 2 inh inhalation BID 08/23/23 09/28/23 mcg-formot 4.8 mcg/actuation HFA inhaler (Breztri Aerosphere) empagliflozin 25 mg tablet 25 mg PO DAILY 08/23/23 09/28/23 (Jardiance) liraglutide 0.6 mg/0.1 mL (18 mg/3 1.8 mg subcut DAILY 08/23/23 09/28/23 mL) subcutaneous pen injector (Victoza 2-Sean) Allergies Allergy/AdvReac Type Severity Reaction Status Date / Time Sulfa (Sulfonamide Allergy Unknown Nausea and Verified 09/28/23 09:45 Antibiotics) Vomiting Review of Systems Review of Systems: A 10 system review of systems was completed on the patient and is negative except for what is stated in the HPI. Nursing and ancillary documentation was reviewed. [facility] Past Medical History Medical History Allergic rhinitis Anxiety Asthma Asthma CVID (common variable immunodeficiency) Diabetes mellitus Hyperlipidemia Hypertension TATUM (obstructive sleep apnea) RLS (restless legs syndrome) Stroke ~14 mon ago Thyroid disease Tobacco abuse Surgical History Surgical History H/O hemicolectomy 01/08/2022 History of incisional hernia repair Laparoscopic 5 cm reducible recurrent incisional hernia repair with mesh, da Kiko assisted on 08/29/23 [facility] Family History Family History Sibling Cancer Mother Cancer of kidney Other Cerebrovascular accident Diabetes mellitus Heart disease Hypertension Social History Social History Smoking packs per day: 0.5 Smoking cigarettes per day: 10.0 Years smoked: 44 Smoking pack-years: 22.00 Smoking status: Current every day smoker Tobacco type: cigarettes Second hand tobacco smoke exposure: Yes Alcohol intake: never Substance use: never Substance use type: does not use Lack of Transportation: No Lack of Food: Never True Current Housing: I Have Housing Concerned About Future Housing: Decline to Answer Difficulty Paying Gas/Electric Bills: Decline to Answer Difficulty Paying for Meds: Decline to A
[2023-10-11] MEDS: MORPHINE SULFATE (*CRX) 4 MG/ML INJ IV PUSH (05:22)
[2023-10-11] MEDS: methylPREDNISolone SOD SUCC 125 MG VIAL 60 MG IV PUSH ×3 (07:31→21:03)
[2023-10-11] MEDS: ACETAMINOPHEN 325 MG TABLET 650 MG PO ×2 (07:32→15:36)
--- NOTE | 2023-10-11 08:03 | PC.NURSE ---
Breakfast tray ordered for pt
--- NOTE | 2023-10-11 10:55 | PM.IMHP ---
H&P: HPI History of Present Illness Date/Time: 10/11/23 10:55 Chief Complaint: Patient brought to the ER for evaluation with worsening shortness Narrative: 63 years old female was is chronic smoker for 44 years and currently smokes half pack a day, came to the ER via EMS for worsening shortness of breath. She recently had an episode of COPD exacerbation and has been on steroids taper. She does not use home oxygen and her shortness of breath and wheezing continues to get worse. EMS was called, patient was brought to the ER for evaluation workup was done which showed hypoxia and COPD exacerbation. She was started on an oxygen, nebulizer, IV steroids and antibiotics and being admitted for medical management and close follow-up. Review of Systems Review of Systems: 14 systems were reviewed with pertinent positives and negatives per HPI. Except as documented in the HPI/progress notes, all other systems were reviewed and are negative. [facility] Past Medical History Medical History Allergic rhinitis Anxiety Asthma Asthma CVID (common variable immunodeficiency) Diabetes mellitus Hyperlipidemia Hypertension TATUM (obstructive sleep apnea) RLS (restless legs syndrome) Stroke ~14 mon ago Thyroid disease Tobacco abuse Surgical History Surgical History H/O hemicolectomy 01/08/2022 History of incisional hernia repair Laparoscopic 5 cm reducible recurrent incisional hernia repair with mesh, da Kiko assisted on 08/29/23 [facility] Family History Family History Sibling Cancer Mother Cancer of kidney Other Cerebrovascular accident Diabetes mellitus Heart disease Hypertension Social History Social History Smoking packs per day: 0.5 Smoking cigarettes per day: 10.0 Years smoked: 17 Smoking pack-years: 8.50 Smoking status: Heavy tobacco smoker Tobacco type: cigarettes Second hand tobacco smoke exposure: No Alcohol intake: never Drinks per week: 0 Substance use: never Substance use type: does not use Do You Feel Safe in your Home?: Yes Lack of Transportation: No Lack of Food: Sometimes True Current Housing: I Have Housing Concerned About Future Housing: No Difficulty Paying Gas/Electric Bills: YES Difficulty Paying for Meds: No Currently Unemployed: No Education: Associate Degree Difficulty w/ Childcare or Family Care: No Living arrangements: alone Gender identity (if verbalized by the patient): Female Spiritual care concerns: No Meds Home Medications and Allergies Home Medications Medication Instructions Recorded Confirmed Type atorvastatin 40 mg tablet 40 mg PO HS 09/18/19 10/11/23 History famotidine 40 mg tablet 40 mg PO DAILY 09/18/19 10/11/23 History fenofibrate 160 mg tablet 160 mg PO HS 09/18/19 10/11/23 History levothyroxine 50 mcg tablet 50 mcg PO DAILY 09/18/19 10/11/23 History metoprolol tartrate 50 mg tablet 25 mg PO BID 09/18/19 10/11/23 History aspirin 81 mg tablet,delayed 81 mg PO HS 11/25/19 10/11/23 History release estradiol 1 mg tablet 0.5 mg PO HS 05/04/20 10/11/23 History potassium chloride 10 mEq 10 meq PO DAILY 05/04/20 10/11/23 History tablet,extended release ropinirole 0.5 mg tablet 0.5 mg PO TID 05/04/20 10/11/23 History immune glob G 40 gram/400 500 ml IV MONTHLY 06/26/22 10/11/23 History mL(10%)-gly-IgA ave 46 mcg/mL injection soln (Gamunex-C) albuterol sulfate 2.5 mg/3 mL 2.5 mg (3 mL) inhalation QID PRN 10/31/22 10/11/23 Rx (0.083 %) solution for nebulization shortness of breath or wheezing #360 mL fluoxetine 20 mg tablet 20 mg PO HS 01/27/23 10/11/23 History gabapentin 400 mg capsule 400 mg PO BID 01/27/23 10/11/23 History (Neurontin) budesonide 160 mcg-glycopyr 9 2 inh inhalation BID 08/23/23 10/11/23
[2023-10-12] VITALS (15 sets, daily range): BP systolic 123–153; BP diastolic 57–72; PULSE 58–92; RESP 14–20; TEMP 35.8–36.6; O2SAT 93–99
[2023-10-12] MEDS: ALBUTEROL SULFATE NEB 2.5 MG/3 ML INH INHALATION ×4 (02:34→22:15)
[2023-10-12] MEDS: IPRATROPIUM BR 0.02% INH SOLN 0.5 MG/2.5 ML VIAL INHALATION ×4 (02:34→22:15)
[2023-10-12] MEDS: methylPREDNISolone SOD SUCC 125 MG VIAL 60 MG IV PUSH ×3 (05:00→21:43)
[2023-10-12 06:59] LABS: Basophils Percent Auto 0.1 % (0.2-1.2); Hematocrit 46.6 % (37.0-47.0); Hemoglobin 14.9 g/dL (12.0-15.0); Immature Granulocyte Absolute 0.03 K/mm3 (0.00-0.031); Immature Granulocyte Percent A 0.3 % (0-0.5); Lymphocytes Percent Auto 8.5 % (18.3-44.2); Mean Corpuscular Hemoglobin 27.4 pg (26-34); Mean Corpuscular Volume 85.8 fl (80-100); Mean Platelet Volume 9.3 fl (7.4-10.4); Monocytes Absolute Auto 0.5 K/mm3 (0.1-0.6); Monocytes Percent Auto 4.9 % (2.6-8.5); Neutrophils Absolute Auto 8.1 K/mm3 (1.3-6.7); Neutrophils Percent Auto 86.2 % (45.5-73.1); Platelet Count Result 208 k/mm3 (150-375); Red Blood Count 5.43 M/mm3 (4.2-5.4); Red Cell Distribution Width 13.7 % (11.5-14.5); White Blood Count 9.4 K/mm3 (4.5-10.0)
[2023-10-12 07:16] LABS: Anion Gap 5 mmol/L (8-16); Blood Urea Nitrogen 18 mg/dL (7-17); Calcium 9.2 mg/dL (8.4-10.2); Carbon Dioxide 32 mmol/L (22-30); Chloride 98 mmol/L (98-107); Estimated CRCL calculation 99 ml/min; Estimated Glomerular Filt Rate > 60; Glucose 164 mg/dL (65-110); Phosphorus 3.2 mg/dL (2.5-4.5); Potassium 4.1 mmol/L (3.4-5.0); Sodium 135 mmol/L (137-145)
[2023-10-12] MEDS: METOPROLOL TARTRATE 25 MG TABLET PO ×2 (09:51→20:31)
[2023-10-12] MEDS: POTASSIUM CHLORIDE 10 MEQ ER TABLET PO (09:52)
[2023-10-12] MEDS: FAMOTIDINE 20 MG TABLET 40 MG PO (09:52)
[2023-10-12] MEDS: GABAPENTIN 400 MG CAPSULE PO ×2 (09:52→20:28)
[2023-10-12] MEDS: EMPAGLIFLOZIN 25 MG TABLET PO (09:52)
[2023-10-12] MEDS: rOPINIRole HCL 0.5 MG TABLET PO ×3 (09:52→20:28)
[2023-10-12] MEDS: ROFLUMILAST 500 MCG TABLET PO (09:55)
[2023-10-12] MEDS: oxyCODONE/ACETAMINOPHEN (*CRX) 10-325 MG TABLET 1 TAB PO ×3 (09:55→20:34)
--- NOTE | 2023-10-12 19:06 | PM.IMPN ---
Progress Note: A&P Assessment and Plan (1) Acute hypoxic respiratory failure: Code(s): J96.01 - Acute respiratory failure with hypoxia Status: Acute (2) Narcotic dependence: Code(s): F11.20 - Opioid dependence, uncomplicated Status: Acute (3) Hypertension: Code(s): I10 - Essential (primary) hypertension Status: Acute (4) Acute exacerbation of chronic obstructive airways disease: Code(s): J44.1 - Chronic obstructive pulmonary disease with (acute) exacerbation Status: Acute (5) Hyponatremia: Code(s): E87.1 - Hypo-osmolality and hyponatremia Status: Acute (6) Tobacco dependence: Code(s): F17.200 - Nicotine dependence, unspecified, uncomplicated Status: Chronic (7) Diabetes mellitus: Qualifiers: Diabetes mellitus type: type 2 Diabetes mellitus senior care insulin use: with senior care use Diabetes mellitus complication status: without complication Qualified Code(s): E11.9 - Type 2 diabetes mellitus without complications; Z79.4 - correction (current) use of insulin Code(s): E11.9 - Type 2 diabetes mellitus without complications Status: Chronic (8) Allergic rhinitis: Qualifiers: Allergic rhinitis trigger: unspecified Allergic rhinitis seasonality: unspecified Qualified Code(s): J30.9 - Allergic rhinitis, unspecified Code(s): J30.9 - Allergic rhinitis, unspecified Status: Acute (9) RLS (restless legs syndrome): Code(s): G25.81 - Restless legs syndrome Status: Chronic (10) Asthma-COPD overlap syndrome: Code(s): J44.9 - Chronic obstructive pulmonary disease, unspecified Status: Acute Plan Admit patient to a medical unit under full inpatient status Oxygen via nasal cannula ordered to keep O2 sats more than 92% Dexamethasone 10 mg IV x 1 dose given in the ER Solu-Medrol taper to 60 mg IV q12 hrs as she is responding clinically to steroids Sputum cultures ordered Follow-up on sputum cultures DuoNeb breathing treatments ordered as needed Ambulate on the floor with assistance Patient weaned off from oxygen 8 liters/minute to 2-3 liters/minute via nasal cannula DC planning once patient is medically stable and breathing is back to baseline Patient would need home O2 eval prior to discharge ? Patient seen and examined at bedside during my morning rounds ? Collaborated with patient's nurse at the bedside in detail and addressed all concerns ? Labs, electrolytes, radiology, investigations and test results reviewed ? Consult/Nursing/Ancilliary notes on the chart reviewed and appreciated ? Spoke with patient/family at the bedside and answered all the questions that they had Repeat labs in a.m. Electrolyte replacement as per protocol. Patient will be monitored very closely on the floor. Further recommendations as per the hospital course. Dependence on nicotine from cigarettes: Tobacco abuse counseling: Patient smokes cigarettes on a chronic basis. Strictly advised patient to cut down on or quit smoking. Nicotine patch ordered. ~5 minutes spent on tobacco cessation counseling with the patient. Websites - http://smokefree.gov & http://www.[employer]com ? Quitlines - 6-949-RZVT-NOW ( ) ? Smokefree Apps - [employer] Lizzy ? Text Messages - SmokefreeTXT ([place] [id number]) Time Spent With Patient Time with patient: 25 - 35 minutes Subjective Date/time seen: 10/12/23 19:06 Interval history: Patient sitting on bed during my morning rounds. Feeling better than yesterday. Using oxygen via nasal cannula. Review of Systems Review of Systems: 14 systems were reviewed with pertinent positives and negatives per HPI. Except as documented in the HPI/progress notes, all other systems were reviewed and are negative. All systems reviewed & are unremarkable except as noted in HPI and below Exam Narrative: PHYSICAL EXAMINATION: Vital signs: Please see the chart Gene
[2023-10-12] MEDS: traZODone HCL 50 MG TABLET 100 MG PO (20:31)
[2023-10-12] MEDS: ATORVASTATIN 40 MG TABLET PO (20:31)
[2023-10-12] MEDS: ASPIRIN 81 MG ENTERIC TABLET PO (20:31)
[2023-10-12] MEDS: FLUoxetine HCL 20 MG CAPSULE PO (20:31)
[2023-10-12] MEDS: FENOFIBRATE 160 MG TABLET PO (20:32)
[2023-10-13] VITALS (10 sets, daily range): BP systolic 132–138; BP diastolic 66–67; PULSE 61–84; RESP 16–20; TEMP 36.2–36.6; O2SAT 91–96
[2023-10-13] MEDS: ALBUTEROL SULFATE NEB 2.5 MG/3 ML INH INHALATION ×3 (04:26→15:07)
[2023-10-13] MEDS: IPRATROPIUM BR 0.02% INH SOLN 0.5 MG/2.5 ML VIAL INHALATION ×3 (04:27→15:07)
[2023-10-13] MEDS: LEVOTHYROXINE SODIUM 50 MCG TABLET PO (06:09)
[2023-10-13 06:25] LABS: Basophils Percent Auto 0.1 % (0.2-1.2); Hematocrit 48.6 % (37.0-47.0); Hemoglobin 15.2 g/dL (12.0-15.0); Immature Granulocyte Absolute 0.03 K/mm3 (0.00-0.031); Immature Granulocyte Percent A 0.4 % (0-0.5); Lymphocytes Absolute Auto 0.63 K/mm3 (0.9-3.2); Lymphocytes Percent Auto 7.7 % (18.3-44.2); Mean Corpuscular HGB Conc 31.3 g/dl (32-36); Mean Corpuscular Hemoglobin 27.3 pg (26-34); Mean Corpuscular Volume 87.4 fl (80-100); Mean Platelet Volume 9.6 fl (7.4-10.4); Monocytes Absolute Auto 0.2 K/mm3 (0.1-0.6); Monocytes Percent Auto 2.2 % (2.6-8.5); Neutrophils Absolute Auto 7.3 K/mm3 (1.3-6.7); Neutrophils Percent Auto 89.6 % (45.5-73.1); Platelet Count Result 215 k/mm3 (150-375); Red Blood Count 5.56 M/mm3 (4.2-5.4); Red Cell Distribution Width 13.8 % (11.5-14.5); White Blood Count 8.2 K/mm3 (4.5-10.0)
[2023-10-13 06:45] LABS: Anion Gap 9 mmol/L (8-16); Blood Urea Nitrogen 26 mg/dL (7-17); Calcium 9.3 mg/dL (8.4-10.2); Carbon Dioxide 26 mmol/L (22-30); Chloride 101 mmol/L (98-107); Estimated CRCL calculation 99 ml/min; Estimated Glomerular Filt Rate > 60; Glucose 203 mg/dL (65-110); Potassium 4.6 mmol/L (3.4-5.0); Sodium 136 mmol/L (137-145)
[2023-10-13] MEDS: FLUTICASONE/UMECLIDIN/VILANTER 100-62.5-25 MCG ELLIPTA 1 PUFF INHALATION ×2 (08:27→08:45)
[2023-10-13] MEDS: METOPROLOL TARTRATE 25 MG TABLET PO (09:40)
[2023-10-13] MEDS: rOPINIRole HCL 0.5 MG TABLET PO ×3 (09:40→15:59)
[2023-10-13] MEDS: ROFLUMILAST 500 MCG TABLET PO (09:40)
[2023-10-13] MEDS: FAMOTIDINE 20 MG TABLET 40 MG PO (09:40)
[2023-10-13] MEDS: oxyCODONE/ACETAMINOPHEN (*CRX) 10-325 MG TABLET 1 TAB PO ×2 (09:40→13:15)
[2023-10-13] MEDS: methylPREDNISolone SOD SUCC 125 MG VIAL 60 MG IV PUSH ×2 (09:40→16:00)
[2023-10-13] MEDS: POTASSIUM CHLORIDE 10 MEQ ER TABLET PO (09:41)
[2023-10-13] MEDS: EMPAGLIFLOZIN 25 MG TABLET PO (09:41)
[2023-10-13] MEDS: GABAPENTIN 400 MG CAPSULE PO ×2 (09:41→15:59)
--- NOTE | 2023-10-13 12:08 | HOMEO2EVAL ---
Evaluation was performed at [facility] Home Oxygen Evaluation RC: Home Oxygen (O2) Evaluation Start: 10/13/23 08:52 Freq: ONCE Status: Active Protocol: RPE Activity Type Activity Date Activity User E-sign Co-sign Detail Recorded Client Recorded Date Recorded By Document 10/13/23 11:55 KAG [email or web address] 10/13/23 12:06 KAG Document 10/13/23 12:00 KAG [email or web address] 10/13/23 12:08 KAG 10/13/23 10/13/23 11:55 12:00 Home O2 Evaluation [Oxygen] -Test Phase Resting Exercise -Oxygen Delivery Room Air Room Air [Pulse Oximetry] -Pulse Oximetry (90-100 %) 93 96 [Pulse Rate] -Pulse Rate (60-100 beats/min) 71 84 [Evaluation] -Activity Tolerance Excellent [Exercise] -Ambulation Distance (feet) 35 -Ambulation Distance (meters) 10.66 [Comments] -Home Oxygen Evaluation Comments Pt walked from bed to doorway and back 3x with no shortness of breath. [Charges] -Evaluation Charges O2 Evaluation by JUD
--- NOTE | 2023-10-13 12:08 | PCRCNOTE ---
Home Oxygen Evaluation completed by RT, this pt does not require home O2 at this time with rest or activity. RN notified.
--- NOTE | 2023-10-13 14:29 | PM.DS ---
DS: Admitting Diagnosis Discharge Date 10/13/2023: Admitting Diagnosis Acute exacerbation of COPD Acute respiratory failure with hypoxia Nicotine dependence DS: Discharge Diagnosis Discharge Diagnosis (1) Narcotic dependence: Code(s): F11.20 - Opioid dependence, uncomplicated Status: Acute (2) Hypertension: Code(s): I10 - Essential (primary) hypertension Status: Acute (3) Cirrhosis: Code(s): K74.60 - Unspecified cirrhosis of liver Status: Acute (4) Acute exacerbation of chronic obstructive airways disease: Code(s): J44.1 - Chronic obstructive pulmonary disease with (acute) exacerbation Status: Acute (5) Overweight (BMI 25.0-29.9): Code(s): E66.3 - Overweight Status: Acute (6) Hyponatremia: Code(s): E87.1 - Hypo-osmolality and hyponatremia Status: Acute (7) Tobacco dependence: Code(s): F17.200 - Nicotine dependence, unspecified, uncomplicated Status: Chronic (8) TATUM (obstructive sleep apnea): Code(s): G47.33 - Obstructive sleep apnea (adult) (pediatric) Status: Chronic (9) Allergic rhinitis: Qualifiers: Allergic rhinitis trigger: unspecified Allergic rhinitis seasonality: unspecified Qualified Code(s): J30.9 - Allergic rhinitis, unspecified Code(s): J30.9 - Allergic rhinitis, unspecified Status: Acute (10) RLS (restless legs syndrome): Code(s): G25.81 - Restless legs syndrome Status: Chronic DS: Summary Hospital Course Reason for hospitalization: Patient brought to the ER for evaluation with worsening shortness of [facility] Hospital Course: H&P: HPI History of Present Illness Date/Time: 10/11/23? 10:55 Chief Complaint: Patient brought to the ER for evaluation with worsening shortness Narrative: 63 years old female was is chronic smoker for 44 years and currently smokes half pack a day, came to the ER via EMS for worsening shortness of breath.? She recently had an episode of COPD exacerbation and has been on steroids taper.? She does not use home oxygen and her shortness of breath and wheezing continues to get worse.? EMS was called, patient was brought to the ER for evaluation workup was done which showed hypoxia and COPD exacerbation.? She was started on an oxygen, nebulizer, IV steroids and antibiotics and being admitted for medical management and close follow-up.? 10/12/2023: Plan Admit patient to a medical unit under full inpatient status Oxygen via nasal cannula ordered to keep O2 sats more than 92% Dexamethasone 10 mg IV x 1 dose given in the ER Solu-Medrol 60 Mg IV q8 hrs started on the floor to be tapered as per clinical response Sputum cultures ordered Follow-up on sputum cultures DuoNeb breathing treatments ordered as needed Ambulate on the floor with assistance DC planning once patient is medically stable and breathing is back to baseline 10/13/2023: Patient is feeling better today. She is off her oxygen. Home oxygen evaluation was done which she passed. She is doing better and wants to go home. Strictly advised patient, again, about quitting smoking. We will discharge her on tapering doses of steroids. Advised patient to follow up closely with her PCP as an outpatient. Dependence on nicotine from cigarettes: Tobacco abuse counseling: Patient smokes cigarettes on a chronic basis. Strictly advised patient to cut down on or quit smoking. Nicotine patch ordered. ~5 minutes spent on tobacco cessation counseling with the patient. Websites - http://smokefree.gov & http://www.quitnet.com ? Quitlines - 1-268-LRFV-NOW ( ) ? Smokefree Apps - [employer] Lizzy ? Text Messages - SmokefreeTXT ([place] the [place]IT to [id number]) Time spent discussing smoking cessation with patient: 3 to 10 minutes Status at Discharge Functional status at discharge: independent ambulation Overall status at discharge: patient is progressing back to baseline Time Spent with Patient
[2023-10-13] MEDS: WATER FOR IRRIGATION, STERILE 1,000 ML BOTTLE 1000 ML (16:00)
== END 2023-10-13 16:40 | disposition home or self-care (01) ==
LOC: ANHED 05:25 → ANH3MEDSUR 07:41
PROVIDERS: Admitting Provider General Practice; Emergency Provider Emergency Medicine; PCP Nurse Practitioner Adult Health; Visit Provider Family Medicine
DX: J96.01 Acute respiratory failure with hypoxia (principal); J44.1 Chronic obstructive pulmonary disease with (acute) exacerbation; J43.9 Emphysema, unspecified; J18.9 Pneumonia, unspecified organism; Z20.822 Contact with and (suspected) exposure to COVID-19; F41.9 Anxiety disorder, unspecified; D83.9 Common variable immunodeficiency, unspecified; E11.9 Type 2 diabetes mellitus without complications; E78.5 Hyperlipidemia, unspecified; I10 Essential (primary) hypertension; E87.1 Hypo-osmolality and hyponatremia; G47.33 Obstructive sleep apnea (adult) (pediatric); G25.81 Restless legs syndrome; F17.210 Nicotine dependence, cigarettes, uncomplicated; F11.20 Opioid dependence, uncomplicated; Z86.73 Personal history of transient ischemic attack (TIA), and cerebral infarction without residual deficits; Z87.898 Personal history of other specified conditions; Z79.51 Long term (current) use of inhaled steroids; Z79.82 Long term (current) use of aspirin; Z79.890 Hormone replacement therapy; Z79.4 Long term (current) use of insulin; Z79.84 Long term (current) use of oral hypoglycemic drugs; Z79.85 Long-term (current) use of injectable non-insulin antidiabetic drugs; Z79.899 Other long term (current) drug therapy
CPT/HCPCS: 36415; 71046; 71275; 80048; 80053; 83605; 83735; 83880; 84100; 84484; 85025; 87637; 93005; 94002; 94618; 94640; 96374; 96375; 96376; 99285; A9270; G0378; G0379; J1100; J2270; J2930; Q9967

== ENCOUNTER 2023-10-31 15:08 | Outpatient (CLI) | payer OTHER, SELFPAY ==
[2023-10-31 16:10] LABS: Basophils Percent Auto 0.3 % (0.2-1.2); Eosinophils Absolute Auto 0.3 K/mm3 (0-0.3); Eosinophils Percent Auto 3.7 % (0-4.4); Hematocrit 43.1 % (37.0-47.0); Hemoglobin 13.7 g/dL (12.0-15.0); Immature Granulocyte Absolute 0.01 K/mm3 (0.00-0.031); Immature Granulocyte Percent A 0.1 % (0-0.5); Lymphocytes Absolute Auto 1.61 K/mm3 (0.9-3.2); Lymphocytes Percent Auto 23.6 % (18.3-44.2); Mean Corpuscular HGB Conc 31.8 g/dl (32-36); Mean Corpuscular Hemoglobin 27.5 pg (26-34); Mean Corpuscular Volume 86.4 fl (80-100); Mean Platelet Volume 9.8 fl (7.4-10.4); Monocytes Absolute Auto 0.3 K/mm3 (0.1-0.6); Monocytes Percent Auto 4.5 % (2.6-8.5); Neutrophils Absolute Auto 4.6 K/mm3 (1.3-6.7); Neutrophils Percent Auto 67.8 % (45.5-73.1); Platelet Count Result 165 k/mm3 (150-375); Red Blood Count 4.99 M/mm3 (4.2-5.4); Red Cell Distribution Width 13.6 % (11.5-14.5); White Blood Count 6.8 K/mm3 (4.5-10.0)
[2023-10-31 16:21] LABS: Potassium 3.9 mmol/L (3.4-5.0)
[2023-10-31 16:25] LABS: Alanine Aminotransferase 22 U/L (6-35); Albumin Level 3.7 g/dL (3.5-5.1); Alkaline Phosphatase 90 U/L (38-126); Anion Gap 8 mmol/L (8-16); Aspartate Amino Transferase 30 U/L (14-36); Bilirubin,Total 0.4 mg/dL (0.2-1.3); Blood Urea Nitrogen 16 mg/dL (7-17); Calcium 8.8 mg/dL (8.4-10.2); Carbon Dioxide 29 mmol/L (22-30); Chloride 96 mmol/L (98-107); Estimated Glomerular Filt Rate > 60; Glucose 247 mg/dL (65-110); Sodium 133 mmol/L (137-145)
[2023-10-31 16:41] LABS: Hemoglobin A1C 8.2 % (<5.7)
[2023-10-31 16:48] LABS: Iron 128 ug/dL (37-170)
[2023-10-31 16:53] LABS: Carcinoembryonic Antigen 7.3 ng/mL (0.0-3.0); Thyroid Stimulating Hormone 0.152 uIU/mL (0.465-4.680)
[2023-10-31 17:08] LABS: Free T4 Free Thyroxine 1.04 ng/mL (0.78-2.19)
[2023-10-31 17:20] LABS: Creatinine Urine 18.8 mg/dL
[2023-10-31 17:25] LABS: MALB Creatinine Ratio 631.4 mg/g (0-30); Microalbumin Urine Random 118.7 mg/L (0-16.7)
[2023-11-02 03:15] LABS: CA-125 10 U/mL (<35)
== END 2023-10-31 15:09 | disposition home or self-care (01) ==
LOC: ANHLAB 15:12
PROVIDERS: PCP Nurse Practitioner Adult Health; Visit Provider Family Medicine
DX: R63.4 Abnormal weight loss (principal); E46 Unspecified protein-calorie malnutrition; I10 Essential (primary) hypertension; E11.9 Type 2 diabetes mellitus without complications; F32.A Depression, unspecified; R53.1 Weakness; R53.83 Other fatigue
CPT/HCPCS: 36415; 80053; 82043; 82378; 82728; 83036; 83540; 84439; 84443; 84480; 85025; 86304

== ENCOUNTER 2024-02-25 07:53 | Outpatient (CLI) | payer OTHER, SELFPAY ==
[2024-02-25 08:50] LABS: Basophils Percent Auto 0.5 % (0.2-1.2); Eosinophils Absolute Auto 0.2 K/mm3 (0-0.3); Eosinophils Percent Auto 1.8 % (0-4.4); Hematocrit 48.3 % (37.0-47.0); Hemoglobin 15.3 g/dL (12.0-15.0); Immature Granulocyte Absolute 0.03 K/mm3 (0.00-0.031); Immature Granulocyte Percent A 0.4 % (0-0.5); Lymphocytes Absolute Auto 2.08 K/mm3 (0.9-3.2); Mean Corpuscular HGB Conc 31.7 g/dl (32-36); Mean Corpuscular Hemoglobin 27.4 pg (26-34); Mean Corpuscular Volume 86.4 fl (80-100); Mean Platelet Volume 9.6 fl (7.4-10.4); Monocytes Absolute Auto 0.5 K/mm3 (0.1-0.6); Monocytes Percent Auto 5.5 % (2.6-8.5); Neutrophils Absolute Auto 5.6 K/mm3 (1.3-6.7); Neutrophils Percent Auto 66.8 % (45.5-73.1); Platelet Count Result 179 k/mm3 (150-375); Red Blood Count 5.59 M/mm3 (4.2-5.4); Red Cell Distribution Width 13.4 % (11.5-14.5); White Blood Count 8.3 K/mm3 (4.5-10.0)
[2024-02-25 09:55] LABS: Free T4 Free Thyroxine 1.42 ng/mL (0.78-2.19)
[2024-02-25 10:03] LABS: Hemoglobin A1C 7.5 % (<5.7)
[2024-02-25 11:02] LABS: Alanine Aminotransferase 22 U/L (6-35); Albumin Level 4.1 g/dL (3.5-5.1); Alkaline Phosphatase 114 U/L (38-126); Anion Gap 7 mmol/L (4-12); Aspartate Amino Transferase 30 U/L (14-36); Bilirubin,Total 0.4 mg/dL (0.2-1.3); Blood Urea Nitrogen 26 mg/dL (7-17); Calcium 9.7 mg/dL (8.4-10.2); Carbon Dioxide 27 mmol/L (22-30); Chloride 104 mmol/L (98-107); Cholesterol 158 mg/dL (0-200); Estimated Glomerular Filt Rate > 60; Glucose 161 mg/dL (65-110); HDL Direct 66 mg/dL; Potassium 4.1 mmol/L (3.4-5.0); Sodium 138 mmol/L (137-145); Triglycerides 148 mg/dL (<150)
[2024-02-25 11:13] LABS: LDL Cholesterol Direct 78 mg/dL
[2024-02-25 11:32] LABS: Thyroid Stimulating Hormone 0.055 uIU/mL (0.465-4.680)
== END 2024-02-25 07:54 | disposition home or self-care (01) ==
LOC: ANHLAB 07:55
PROVIDERS: PCP Registered Nurse; Visit Provider Registered Nurse
DX: E78.5 Hyperlipidemia, unspecified (principal); E11.9 Type 2 diabetes mellitus without complications; E03.9 Hypothyroidism, unspecified
CPT/HCPCS: 36415; 80053; 80061; 83036; 84439; 84443; 84480; 85025

== ENCOUNTER 2024-04-07 16:25 | Outpatient (CLI) | payer OTHER, SELFPAY ==
--- NOTE | ~2024-04-07 | XR_ITS ---
Clinical Indication: COPD PA and lateral views of the chest: Comparison: 10/11/2023 Findings: No acute consolidation or pleural effusion. Probable COPD. Stable calcified nodules compati ble with prior granulomatous disease. Cardiomediastinal silhouette is within normal limits. Bones and soft tissues are unremarkable. Impression: COPD pattern. No acute abnormality evident. Reviewed, dictated and finalized at [facility]. Impression: COPD pattern. No acute abnormality evident.
== END 2024-04-07 16:26 | disposition home or self-care (01) ==
LOC: ANHIMG 16:27
PROVIDERS: PCP Registered Nurse; Visit Provider Registered Nurse
DX: J44.1 Chronic obstructive pulmonary disease with (acute) exacerbation (principal)
CPT/HCPCS: 71046

== ENCOUNTER 2024-04-13 16:45 | Emergency (ER) | payer OTHER, SELFPAY ==
[2024-04-13] VITALS (8 sets, daily range): BP systolic 134–138; BP diastolic 71–75; PULSE 60–82; RESP 14–24; TEMP 36.3; O2SAT 95–97
--- NOTE | ~2024-04-13 | XR_ITS ---
EXAMINATION: XR chest 1V portable DATE: 04/13/2024 19:35 INDICATION: Shortness of breath. TECHNIQUE: A single frontal view of the chest was obtained. COMPARISON: Chest 2 views 04/07/2024 FINDINGS: A calcified right lung nodule is consistent with old granulomatous disease. No pleural effu medina or pneumothorax. The heart size is normal. There are changes of anterior fusion procedure in cer vical spine. IMPRESSION: 1. No acute cardiopulmonary disease. Reviewed, dictated and finalized at location E.
[2024-04-13] MEDS: IPRATROPIUM 0.5 MG/ALBUTEROL SULFATE 2.5 MG AMPUL.NEB 3 ML INHALATION ×2 (19:03→20:25)
[2024-04-13 19:18] LABS: Basophils Percent Auto 0.1 % (0.2-1.2); Eosinophils Percent Auto 0.3 % (0-4.4); Hematocrit 48.5 % (37.0-47.0); Hemoglobin 15.9 g/dL (12.0-15.0); Immature Granulocyte Absolute 0.02 K/mm3 (0.00-0.031); Immature Granulocyte Percent A 0.3 % (0-0.5); Lymphocytes Absolute Auto 0.65 K/mm3 (0.9-3.2); Lymphocytes Percent Auto 9.3 % (18.3-44.2); Mean Corpuscular HGB Conc 32.8 g/dl (32-36); Mean Corpuscular Hemoglobin 27.9 pg (26-34); Mean Corpuscular Volume 85.1 fl (80-100); Mean Platelet Volume 9.3 fl (7.4-10.4); Monocytes Absolute Auto 0.2 K/mm3 (0.1-0.6); Monocytes Percent Auto 2.3 % (2.6-8.5); Neutrophils Absolute Auto 6.1 K/mm3 (1.3-6.7); Neutrophils Percent Auto 87.7 % (45.5-73.1); Platelet Count Result 179 k/mm3 (150-375); Red Cell Distribution Width 14.4 % (11.5-14.5)
--- NOTE | 2024-04-13 19:25 | PC.NURSE ---
Report received from OSMANI Delgado. Assumed care of patient at this time.
[2024-04-13 19:28] LABS: Alanine Aminotransferase 21 U/L (6-35); Albumin Level 4.7 g/dL (3.5-5.1); Alkaline Phosphatase 71 U/L (38-126); Anion Gap 8 mmol/L (4-12); Aspartate Amino Transferase 27 U/L (14-36); Bilirubin,Total 0.5 mg/dL (0.2-1.3); Blood Urea Nitrogen 21 mg/dL (7-17); Calcium 9.2 mg/dL (8.4-10.2); Carbon Dioxide 26 mmol/L (22-30); Chloride 99 mmol/L (98-107); Estimated CRCL calculation 69 ml/min; Estimated Glomerular Filt Rate > 60; Glucose 154 mg/dL (65-110); Potassium 4.5 mmol/L (3.4-5.0); Sodium 133 mmol/L (137-145)
--- NOTE | 2024-04-13 19:33 | ED.GENADULT ---
HPI - General Adult General Chief complaint: Shortness of Breath/Dyspnea Stated complaint: trouble breathing Time Seen by Provider: 04/13/24 18:49 History of Present Illness HPI narrative: Patient is a 63-year-old female who presents to the emergency department this afternoon complaining of shortness of breath. Patient admits that she does have a history of COPD and has been on a prednisone taper for the past 5 days. Patient also has been using her home inhalers with minimal relief of her symptoms. Patient states that she has been congested and has had a mild cough. She also states that she has been feeling feverish at home although has not checked her temperature does not have a documented a fever. She denies any chest pain, any nausea or vomiting. No additional symptoms or concerns at this time. Related Data Home Medications Medication Instructions Recorded Confirmed atorvastatin 40 mg tablet 40 mg PO HS 09/18/19 11/12/23 famotidine 40 mg tablet 40 mg PO DAILY 09/18/19 11/12/23 fenofibrate 160 mg tablet 160 mg PO HS 09/18/19 11/12/23 levothyroxine 50 mcg tablet 50 mcg PO DAILY 09/18/19 11/12/23 metoprolol tartrate 50 mg tablet 25 mg PO BID 09/18/19 11/12/23 aspirin 81 mg tablet,delayed 81 mg PO HS 11/25/19 11/12/23 release estradiol 1 mg tablet 0.5 mg PO HS 05/04/20 11/12/23 potassium chloride 10 mEq 10 meq PO DAILY 05/04/20 11/12/23 tablet,extended release ropinirole 0.5 mg tablet 0.5 mg PO TID 05/04/20 11/12/23 immune glob G 40 gram/400 500 ml IV MONTHLY 06/26/22 11/12/23 mL(10%)-gly-IgA ave 46 mcg/mL injection soln (Gamunex-C) fluoxetine 20 mg tablet 20 mg PO HS 01/27/23 11/12/23 gabapentin 400 mg capsule 400 mg PO BID 01/27/23 11/12/23 (Neurontin) budesonide 160 mcg-glycopyr 9 2 inh inhalation BID 08/23/23 11/12/23 mcg-formot 4.8 mcg/actuation HFA inhaler (Breztri Aerosphere) empagliflozin 25 mg tablet 25 mg PO DAILY 08/23/23 11/12/23 (Jardiance) liraglutide 0.6 mg/0.1 mL (18 mg/3 1.8 mg subcut DAILY 08/23/23 11/12/23 mL) subcutaneous pen injector (Victoza 2-Sean) trazodone 100 mg tablet 100 mg PO HS 10/11/23 11/12/23 Allergies Allergy/AdvReac Type Severity Reaction Status Date / Time Sulfa (Sulfonamide Allergy Unknown Nausea and Verified 11/09/23 10:33 Antibiotics) Vomiting Review of Systems Review of Systems: All systems are reviewed and are negative unless stated otherwise in the HPI. [facility] Past Medical History Medical History Allergic rhinitis Anxiety Asthma Asthma CVID (common variable immunodeficiency) Diabetes mellitus Hyperlipidemia Hypertension TATUM (obstructive sleep apnea) RLS (restless legs syndrome) Stroke ~14 mon ago Thyroid disease Tobacco abuse Surgical History Surgical History H/O hemicolectomy 01/08/2022 History of incisional hernia repair Laparoscopic 5 cm reducible recurrent incisional hernia repair with mesh, da Kiko assisted on 08/29/23 [facility] Family History Family History Sibling Cancer Mother Cancer of kidney Other Cerebrovascular accident Diabetes mellitus Heart disease Hypertension Social History Social History Smoking packs per day: 0.5 Smoking cigarettes per day: 10.0 Years smoked: 17 Smoking pack-years: 8.50 Smoking status: Heavy tobacco smoker Tobacco type: cigarettes Second hand tobacco smoke exposure: No Alcohol intake: never Drinks per week: 0 Substance use: never Substance use type: does not use Do You Feel Safe in your Home?: Yes Lack of Transportation: No Lack of Food: Sometimes True Current Housing: I Have Housing Concerned About Future Housing: No Difficulty Paying Gas/Electric Bills: YES Difficulty Paying for Meds: No Currently Unemployed
[2024-04-13 19:53] LABS: Influenza A QL RT-PCR Negative (Negative); Influenza B QL RT-PCR Negative (Negative); RSV RNA, RT-PCR Negative (Negative); SARS-CoV-2 RNA PCR Negative (Negative)
== END 2024-04-13 20:38 | disposition home or self-care (01) ==
PROVIDERS: Emergency Provider Emergency Medicine; PCP Registered Nurse
DX: J44.1 Chronic obstructive pulmonary disease with (acute) exacerbation (principal); Z20.822 Contact with and (suspected) exposure to COVID-19; I10 Essential (primary) hypertension; E11.9 Type 2 diabetes mellitus without complications; E78.5 Hyperlipidemia, unspecified; E07.9 Disorder of thyroid, unspecified; G47.33 Obstructive sleep apnea (adult) (pediatric); G25.81 Restless legs syndrome; D83.9 Common variable immunodeficiency, unspecified; F17.210 Nicotine dependence, cigarettes, uncomplicated; Z86.73 Personal history of transient ischemic attack (TIA), and cerebral infarction without residual deficits; Z79.82 Long term (current) use of aspirin; Z79.84 Long term (current) use of oral hypoglycemic drugs; Z79.85 Long-term (current) use of injectable non-insulin antidiabetic drugs; Z79.52 Long term (current) use of systemic steroids
CPT/HCPCS: 36415; 71045; 80053; 85025; 87637; 94640; 99284

== ENCOUNTER 2024-07-26 09:08 | Outpatient (CLI) | payer OTHER, SELFPAY ==
[2024-07-26 10:19] LABS: Free T4 Free Thyroxine 1.02 ng/mL (0.78-2.19)
[2024-07-26 10:21] LABS: Thyroid Stimulating Hormone 0.524 uIU/mL (0.465-4.680); Total Triiodothyronine (T3) 1.36 NG/ML (0.97-1.69)
[2024-07-26 11:12] LABS: Hemoglobin A1C 7.2 % (<5.7)
== END 2024-07-26 09:09 | disposition home or self-care (01) ==
LOC: ANHLAB 09:10
PROVIDERS: PCP Registered Nurse; Visit Provider Family Medicine
DX: E11.9 Type 2 diabetes mellitus without complications (principal); R53.83 Other fatigue
CPT/HCPCS: 36415; 83036; 84439; 84443; 84480

== ENCOUNTER 2024-12-05 23:22 | Inpatient (IN) | payer OTHER, SELFPAY ==
--- NOTE | ~2024-12-05 | US_ITS ---
EXAMINATION: US venous doppler [facility] DATE: 12/06/2024 19:02 INDICATION: Lower limb edema. TECHNIQUE: Grayscale ultrasound images without and with compression and Doppler ultrasound images of the bilateral lower extremity veins were obtained. COMPARISON: Ultrasound 01/07/2022 FINDINGS: The visualized portions of right common femoral vein, profunda (deep) femoral vein, femoral vein, pop liteal vein, peroneal veins, posterior tibial veins, and greater saphenous vein outflow are patent. The visualized portions of left common femoral vein, profunda femoral vein, femoral vein, popliteal v ein, peroneal veins, posterior tibial veins, and greater saphenous vein outflow are patent. IMPRESSION: 1. No deep venous thrombosis. Reviewed, dictated and finalized at location A. OR PROCESS ENGINEER
--- NOTE | ~2024-12-05 | XR_ITS ---
EXAMINATION: XR chest 1V portable DATE: 12/06/2024 00:19 INDICATION: Shortness of breath TECHNIQUE: frontal view of the chest was obtained. COMPARISON: Chest radiograph dated 04/13/2024 FINDINGS: Calcified nodules in the right lower lung consistent with old granulomatous disease. No other airspac e opacities, pulmonary edema, pleural effusion or pneumothorax. The cardiomediastinal silhouette is n ormal. IMPRESSION: 1. No acute cardiopulmonary disease. Reviewed, dictated and finalized at location A. CTOR OF SERVICES
--- NOTE | ~2024-12-05 | CT_ITS ---
EXAMINATION: CTA chest PE protocol DATE: 12/08/2024 10:02 SOLID WASTE MANAGER INDICATION: Hypoxia TECHNIQUE: Computed tomographic angiography (CTA) of the chest was performed with 100 mL Omnipaque-35 0 intravenous contrast. The dose-length product was 282.28 mGy-cm. Maximum intensity projection 3D-re constructions of the aorta and other arteries were constructed by the technologist on a separate work station. COMPARISON: 10/11/2023. FINDINGS/OBSERVATIONS: PULMONARY ARTERIES: No filling defect is identified within the main or proximal pulmonary artery. The main pulmonary artery is not enlarged. THORACIC AORTA: No aneurysmal dilatation or dissection is present. The great vessels are intact LUNGS: Biapical scarring is redemonstrated. Calcified granuloma within the right middle lobe. Trace right basilar atelectasis/scar, unchanged. MEDIASTINUM: No morphologically suspicious or pathologically enlarged lymph nodes are identified with in the mediastinum or bilateral axilla. BONES OF THE CHEST: No acute fracture. No significant degenerative disease. No lytic or blastic lesions. HEART: The heart is of normal size, without pericardial effusion. IMPRESSION: No pulmonary embolus. No thoracic aortic dissection. No acute findings within the bilateral lung anthony, as detailed above. Reviewed, dictated and finalized at location A. D WASTE MANAGER
[2024-12-05 23:23] VITALS: BP 123/64; PULSE 90; RESP 21; TEMP 36.9; O2SAT 90
--- NOTE | 2024-12-05 23:26 | ECG_ITS ---
Test Date: 2024-12-06 00:11:28 Measurements Intervals Gravel Switch Rate: 79 P: 66 IN: 170 QRS: 44 QRSD: 78 T: 70 QT: 352 QTc: 404 Interpretive Statements SINUS RHYTHM POSSIBLE LEFT ATRIAL ENLARGEMENT ANTEROSEPTAL INFARCT, AGE INDETERMINATE BASELINE WANDER- V5 ABNORMAL ECG No previous ECG available for comparison Electronically Signed On 12-06-2024 09:01:52 STOCK PULLER by Channing Mckeon D.O.
[2024-12-05 23:46] LABS: Basophils Percent Auto 0.2 % (0.2-1.2); Eosinophils Absolute Auto 0.2 K/mm3 (0-0.3); Eosinophils Percent Auto 3.4 % (0-4.4); Hematocrit 39.8 % (37.0-47.0); Hemoglobin 13.1 g/dL (12.0-15.0); Immature Granulocyte Absolute 0.01 K/mm3 (0.00-0.031); Immature Granulocyte Percent A 0.2 % (0-0.5); Lymphocytes Absolute Auto 0.77 K/mm3 (0.9-3.2); Lymphocytes Percent Auto 15.3 % (18.3-44.2); Mean Corpuscular HGB Conc 32.9 g/dl (32-36); Mean Corpuscular Hemoglobin 28.9 pg (26-34); Mean Corpuscular Volume 87.7 fl (80-100); Mean Platelet Volume 9.5 fl (7.4-10.4); Monocytes Absolute Auto 0.3 K/mm3 (0.1-0.6); Monocytes Percent Auto 5.8 % (2.6-8.5); Neutrophils Absolute Auto 3.8 K/mm3 (1.3-6.7); Neutrophils Percent Auto 75.1 % (45.5-73.1); Platelet Count Result 187 k/mm3 (150-375); Red Blood Count 4.54 M/mm3 (4.2-5.4); Red Cell Distribution Width 13.3 % (11.5-14.5)
[2024-12-05] MEDS: methylPREDNISolone SOD SUCC 125 MG VIAL IV PUSH (23:48)
[2024-12-05] MEDS: IPRATROPIUM 0.5 MG/ALBUTEROL SULFATE 2.5 MG AMPUL.NEB 3 ML INHALATION ×2 (23:53→23:54)
[2024-12-05 23:55] VITALS: PULSE 78; RESP 16
[2024-12-06] VITALS (20 sets, daily range): BP systolic 126–149; BP diastolic 52–76; PULSE 76–103; RESP 15–20; TEMP 36.3–36.8; O2SAT 87–100; BMI 27.8
--- NOTE | 2024-12-06 | ECHO_ITS ---
Patient Info Name: Alma Anderson Age: 64 years : 1960 Gender: Female Ht: 64 in Wt: 152 lbs BSA: 1.78 m2 HR: 92 bpm BP: 140 / 52 mmHg Technical Quality: Good Exam Date: 12/06/2024 2:49 PM Exam Location: Echo Lab Exam Room: [facility] Patient Status: Inpatient Admit Date: 12/06/2024 Staff Ordering Physician: Joao Roach MD Practice Billing Associate: Rowan Cummings RDCS Attending Provider: Crystal Cota DO Exam Type: CA echo doppler color flow Study Info Indications - Edema Complete two-dimensional, color flow and Doppler transthoracic echocardiogram is performed. Summary 1. Complete two-dimensional, color flow and Doppler transthoracic echocardiogram is performed. 2. Left ventricular chamber dimension is normal. 3. Left ventricular systolic function is normal, estimated at 60-65%. 4. The left ventricular diastolic function is grade I diastolic dysfunction. 5. E/e' 10 is mildly elevated. 6. Left atrial chamber dimension is mildly enlarged. 7. There is mild aortic valve sclerosis. 8. Mild pulmonary hypertension, estimated pulmonary arterial systolic pressure is 43 mmHg. 9. Dilated inferior vena cava with >50% collapse upon inspiration consistent with normal right atrial pressure, 10 mmHg. Left Ventricle E/e' 10 is mildly elevated. Left ventricular chamber dimension is normal. Left ventricular systolic function is normal, estimated at 60-65%. The left ventricular diastolic function is grade I diastolic dysfunction. Right Ventricle Right ventricular systolic function is normal and with normal TAPSE 2.1 cm. Right ventricular chamber dimension is normal. Left Atria Left atrial chamber dimension is mildly enlarged. Right Atria Right atrial chamber dimension is normal. Aortic Valve The aortic valve is trileaflet. There is mild aortic valve sclerosis. There is no aortic valve stenosis. There is no aortic valve regurgitation. Pulmonic Valve There is no pulmonic regurgitation. Mitral Valve There is no mitral valve stenosis. There is no mitral valve regurgitation. Tricuspid Valve There is no tricuspid valve regurgitation. Mild pulmonary hypertension, estimated pulmonary arterial systolic pressure is 43 mmHg. Pericardium/Pleural There is no pericardial effusion. Inferior Vena Cava Dilated inferior vena cava with >50% collapse upon inspiration consistent with normal right atrial pressure, 10 mmHg. Aorta The aortic root size at the sinus of Valsalva is normal. Left Ventricular Outflow Tract Name Value Normal LVOT 2D LVOT Diameter 2.0 cm LVOT Doppler LVOT Peak Gradient 7 mmHg LVOT Mean Gradient 4 mmHg LVOT VTI 30 cm LVOT VTI/AV VTI Ratio 0.6 LVOT Stroke Volume 95 ml LVOT CO 8.4 l/min LVOT CI 4.7 l/min/m2 Pulmonic Valve Name Value Normal PV Doppler PV Peak Gradient 7 mmHg Mitral Valve Name Value Normal MV Doppler MV Peak Gradient 6 mmHg MV Mean Gradient 3 mmHg MV Decel Braxton 228 cm/s2 MV PHT 111 ms MV Area (PHT) 2.0 cm2 4.0-5.0 MV Area (Cont Eq VTI) 3.5 cm2 MV Diastolic Function MV E Peak Velocity 87 cm/s MV A Peak Velocity 126 cm/s MV E/A 0.7 MV Decel Time 384 ms MV Annular TDI MV E/e' (Septal) 11.4 <=8.0 MV E/e' (Lateral) 9.2 <=8.0 MV E/e' (Average) 10.3 Tricuspid Valve Name Value Normal TV Regurgitation Doppler TR Peak Velocity 288 cm/s TR Peak Gradient 32 mmHg Estimated PAP/RSVP RA Pressure 10 mmHg <=5 PA Systolic Pressure 43 mmHg <36 RV Systolic Pressure 43 mmHg <36 Aortic Valve Name Value Normal AV Doppler AV Peak Velocity 227 cm/s AV Peak Gradient 18 mmHg AV Mean Gradient 11 mmHg AV VTI 49 cm AV Area (Cont Eq VTI) 1.9 cm2 >=3.0 AV Area (Cont Eq Wallace) 2.0 cm2 AV Regurgitation 2D LVOT Area 3.2 cm2 Ventricles Name Value Normal LV Dimensions 2D/MM IVS Diastolic Thickness (2D) 0.7 cm 0.6-1.0 LVID Diastole (2D) 4.8 cm 3.8-5.2 LVIW Diastolic Thickness (2D) 0.7 cm 0.6-0.9 LVID Systole (2D) 3.3 cm 2.2-3.5 LVOT Diameter 2.0 cm LV Mass (2D Cubed) 110.02 g 67.00-162.00 LV Mass Index (2D Cubed) 62 g/m2 43-95 Relative Wall Thickness (2D) 0.31 LV Fractional Shortening/Ejection Fraction 2D/MM LV Fractional Shortening (2D) 30 % 27-45 LV EF (2D Teicholz) 58 % 54-74 LV Diastolic Volume (4C MOD) 110 ml LV EF (4C MOD) 74 % LV Diastolic Length (4C) 8.3 cm LV Systolic Length (4C) 6.9 cm LV Stroke Volume (4C MOD) 81 ml Atria Name Value Normal LA Dimensions LA Volume (4C A-L) 51 ml LA Volume (BP A-L) 55 ml RA Dimensions RA Area (4C) 12.1 cm2 <=18.0 Report Signatures
[2024-12-06 00:01] LABS: Alanine Aminotransferase 27 U/L (6-35); Albumin Level 4.1 g/dL (3.5-5.1); Alkaline Phosphatase 76 U/L (38-126); Anion Gap 8 mmol/L (4-12); Aspartate Amino Transferase 32 U/L (14-36); Bilirubin,Total 0.7 mg/dL (0.2-1.3); Blood Urea Nitrogen 16 mg/dL (7-17); Calcium 10.2 mg/dL (8.4-10.2); Carbon Dioxide 32 mmol/L (22-30); Chloride 94 mmol/L (98-107); Estimated CRCL calculation 93 ml/min; Estimated Glomerular Filt Rate > 60; Glucose 180 mg/dL (65-110); Sodium 134 mmol/L (137-145)
[2024-12-06] MEDS: MAGNESIUM SULF 2 GM/WATER 50ML 2 GM/50 ML BAG IVPB ×3 (00:19→17:46)
--- NOTE | 2024-12-06 00:19 | ED.GENADULT ---
HPI - General Adult General Chief complaint: Shortness of Breath/Dyspnea Stated complaint: sob, cough Time Seen by Provider: 12/05/24 23:23 History of Present Illness HPI narrative: Patient is a 64-year-old female who presents the emergency department this evening complaining of shortness of breath and a cough that is productive of sputum. Patient states that her symptoms have been ongoing for the past week but has worsened this evening. Admits that she does have a history of COPD and she is a smoker. She was on prednisone for 1 her COPD approximately 1 week ago which was prescribed to her by her primary care physician. Upon EMS arrival, they did note that the patient was satting 90% on room air. They did administer a DuoNeb breathing treatment prior to arrival to the emergency department. Patient states that she believes that the breathing treatment did help with her shortness of breath. She is currently denying any chest pain, nausea vomiting, abdominal pain or any additional symptoms. Related Data Home Medications ?Medication ?Instructions ?Recorded ?Confirmed ?Last Taken ?Type atorvastatin 40 mg tablet 40 mg PO HS 09/18/19 11/07/24 10/10/23 20:00 History famotidine 40 mg tablet 40 mg PO DAILY 09/18/19 11/07/24 10/10/23 08:00 History fenofibrate 160 mg tablet 160 mg PO HS 09/18/19 11/07/24 10/10/23 20:00 History levothyroxine 50 mcg tablet 50 mcg PO DAILY 09/18/19 11/07/24 10/10/23 History metoprolol tartrate 50 mg tablet 25 mg PO BID 09/18/19 11/07/24 10/10/23 20:00 History aspirin 81 mg tablet,delayed 81 mg PO HS 11/25/19 11/07/24 10/10/23 20:00 History release estradiol 1 mg tablet 0.5 mg PO HS 05/04/20 11/07/24 10/10/23 20:00 History potassium chloride 10 mEq 10 meq PO DAILY 05/04/20 11/07/24 10/10/23 08:00 History tablet,extended release ropinirole 0.5 mg tablet 0.5 mg PO TID 05/04/20 11/07/24 10/10/23 History immune glob G 40 gram/400 500 ml IV MONTHLY 06/26/22 11/07/24 07/12/23 History mL(10%)-gly-IgA ave 46 mcg/mL injection soln (Gamunex-C) fluoxetine 20 mg tablet 20 mg PO HS 01/27/23 11/07/24 10/10/23 20:00 History gabapentin 400 mg capsule 400 mg PO BID 01/27/23 11/07/24 10/10/23 20:00 History (Neurontin) budesonide 160 mcg-glycopyr 9 2 inh inhalation BID 08/23/23 11/07/24 10/10/23 20:00 History mcg-formot 4.8 mcg/actuation HFA inhaler (Breztri Aerosphere) empagliflozin 25 mg tablet 25 mg PO DAILY 08/23/23 11/07/24 10/10/23 08:00 History (Jardiance) liraglutide 0.6 mg/0.1 mL (18 mg/3 1.8 mg subcut DAILY 08/23/23 11/07/24 10/10/23 08:00 History mL) subcutaneous pen injector (Moment.Ustoza 2-Sean) trazodone 100 mg tablet 100 mg PO HS 10/11/23 11/07/24 10/10/23 20:00 History ipratropium 0.5 mg-albuterol 3 mg 3 ml inhalation Q6H PRN 11/07/24 11/07/24 Unknown History (2.5 mg base)/3 mL nebulization soln Allergies Allergy/AdvReac Type Severity Reaction Status Date / Time Sulfa (Sulfonamide Allergy Unknown Nausea and Verified 11/07/24 08:42 Antibiotics) Vomiting Review of Systems Review of Systems: All systems are reviewed and are negative unless stated otherwise in the HPI. [facility] Past Medical History Medical History Stroke ~14 mon ago Hyperlipidemia Hypertension Thyroid disease Anxiety Diabetes mellitus Asthma RLS (restless legs syndrome) CVID (common variable immunodeficiency) Allergic rhinitis Asthma TATUM (obstructive sleep apnea) Tobacco abuse Surgical History Surgical History History of incisional hernia repair Laparoscopic 5 cm reducible recurrent incisional hernia repair with mesh, da Kiko assisted on 08/29/23 [facility] H/O hemicolectomy 01/08/2022 Family History Family History Sibling Cancer Mother Cancer of kidney Other Cerebrovascular accident Diabetes mellitus Heart disease Hypertension Social History Social History Smoking packs per day: 1 Smoking cigarettes per day: 20.0 Years smoked: 40 Smoking pack-years: 40.00 Smoking status: Current every day smoker Tobacco type: cigarettes Second hand tobacco smoke exposure: No Additional smoking assessment comments: Smoking 0.5ppd now. Alcohol intake: never Drinks per week: 0 Substance use: never Substance use type: does not use Do You Feel Safe in your Home?: Yes Lack of Transportation: No Lack of Food: Sometimes True Current Housing: I Have Housing Concerned About Future Housing: No Difficulty Paying Gas/Electric Bills: YES Difficulty Paying for Meds: No Currently Unemployed: No Education: Associate Degree Difficulty w/ Childcare or Family Care: No Living arrangements: alone Gender identity (if verbalized by the patient): Female Spiritual care concerns: No Exam Narrative: General: Alert, awake, afebrile, in no acute distress. HEENT: PERRL, no rhinorrhea, no post nasal drip, oropharynx clear. Neck: Trachea midline, no JVD, no lymphadenopathy. Cardiovascular: Regular rate and rhythm, no murmurs, rubs or gallops, no peripheral edema. Respiratory: Mild wheezing bilaterally, no tachypnea, no respiratory distress. Abdomen: Soft, nontender, nondistended, no rebound, no guarding, no peritoneal signs. Musculoskeletal: No joint swelling or deformity, normal muscle tone. Skin: No rashes or petechia, no signs of infection. Psychiatric: Alert and oriented, normal behavior and judgment for situation. Neurological: Alert and oriented to person, place, and time. Follows all commands. No focal deficits, speech is clear and fluent. Course Vital Signs Vital signs: Vital Signs Temperature 98.5 F 12/05/24 23:23 Pulse Rate 90 12/05/24 23:23 Respiratory Rate 21 H 12/05/24 23:23 Blood Pressure 123/64 12/05/24 23:23 Pulse Oximetry 90 12/05/24 23:23 Oxygen Delivery Room Air 12/05/24 23:23 Temperature 98.5 F 12/05/24 23:23 Pulse Rate 76 12/06/24 00:01 Respiratory Rate 15 12/06/24 00:01 Blood Pressure 123/64 12/05/24 23:23 Pulse Oximetry 95 12/06/24 00:25 Oxygen Delivery Nasal Cannula 12/06/24 00:25 Oxygen Flow Rate 2 12/06/24 00:25 Medical Decision Making MDM Narrative Medical decision making narrative: The patient was evaluated by myself in the emergency department. History is obtained from patient who is an independent historian and physical exam was performed. External medical records were reviewed at this time. IV was established and pertinent tests were ordered. Patient was administered 2 DuoNeb breathing treatments and 125 mg of IV Solu-Medrol. EKG was obtained which revealed sinus rhythm rate of 79 beats per min. No ST changes, T wave inversions or evidence of acute ischemia. EKG was independently interpreted by me and is currently pending official cardiology read. Laboratory results obtained revealing a magnesium of 1.0 otherwise unremarkable. At this time patient was administered 4 g of IV magnesium sulfate. Imaging studies obtained included CXR which was independently interpreted by me revealing no acute cardiopulmonary process, which is pending final radiology interpretation. On repeat assessment of the patient, it was noted the patient still has bilateral wheezing. I did recommend admission for COPD exacerbation and patient is agreeable with this plan. Differential diagnosis considerations include COPD exacerbation, acute viral syndrome, infectious process such as pneumonia. Comorbidities impacting this visit include history of COPD and current daily tobacco use. I have evaluated and discussed social determinants of health with the patient that could potentially impact subsequent diagnosis and treatment plans. On repeat assessment of the patient, reevaluation revealed that the patient is doing well and is in no acute distress. Patient symptoms have improved since she arrived to our emergency department. Repeat vital signs were all reviewed and noted to be stable. Differential diagnosis and treatment plan were discussed with the patient at bedside. Patient agrees with discussion and after shared medical decision making agrees with admission. All questions were answered to the patient's satisfaction. Case was discussed with the on-call hospitalist Dr. Cota at 0115 who accepted admission for COPD exacerbation. Scheduled DuoNeb breathing treatments every 6 hours and 60 mg of IV Solu-Medrol every 6 hours were placed at this. Vital Signs Vital Signs: Vital Signs Temperature 98.5 F 12/05/24 23:23 Pulse Rate 90 12/05/24 23:23 Respiratory Rate 21 H 12/05/24 23:23 Blood Pressure 123/64 12/05/24 23:23 Pulse Oximetry 90 12/05/24 23:23 Oxygen Delivery Room Air 12/05/24 23:23 Temperature 98.5 F 12/05/24 23:23 Pulse Rate 76 12/06/24 00:01 Respiratory Rate 15 12/06/24 00:01 Blood Pressure 123/64 12/05/24 23:23 Pulse Oximetry 95 12/06/24 00:25 Oxygen Delivery Nasal Cannula 12/06/24 00:25 Oxygen Flow Rate 2 12/06/24 00:25 Lab Data 12/05/24 23:42 12/05/24 23:42 Labs: Lab Results 12/05/24 Range/Units 23:42 WBC 5.0 (4.5-10.0) K/mm3 RBC 4.54 (4.2-5.4) M/mm3 Hgb 13.1 (12.0-15.0) g/dL Hct 39.8 (37.0-47.0) % MCV 87.7 (80-100) fl MCH 28.9 (26-34) pg MCHC 32.9 (32-36) g/dl RDW 13.3 (11.5-14.5) % Plt Count 187 (150-375) k/mm3 MPV 9.5 (7.4-10.4) fl Immature Gran % (Auto) 0.2 (0-0.5) % Neut % (Auto) 75.1 H (45.5-73.1) % Lymph % (Auto) 15.3 L (18.3-44.2) % [place] % (Auto) 5.8 (2.6-8.5) % Eos % (Auto) 3.4 (0-4.4) % Baso % (Auto) 0.2 (0.2-1.2) % Lymph # (Auto) 0.77 L (0.9-3.2) K/mm3 [place] # (Auto) 0.3 (0.1-0.6) K/mm3 Eos # (Auto) 0.2 (0-0.3) K/mm3 Baso # (Auto) 0.0 (0.0-0.1) K/mm3 Abs Immat Gran (auto) 0.01 (0.00-0.031) K/mm3 Absolute Neuts (auto) 3.8 (1.3-6.7) K/mm3 Absolute Nucleated RBC 0.000 (0.0-0.012) K/mm3 Nucleated RBC % 0.0 (0.0-0.2) % Sodium 134 L (137-145) mmol/L Potassium 4.0 (3.4-5.0) mmol/L Chloride 94 L (98-107) mmol/L Carbon Dioxide 32 H (22-30) mmol/L Anion Gap 8 (4-12) mmol/L BUN 16 (7-17) mg/dL Creatinine 0.48 L (0.7-1.0) mg/dL Estim Creat Clear Calc 93 ml/min Estimated GFR > 60 (59 - ) Glucose 180 H (65-110) mg/dL Calcium 10.2 (8.4-10.2) mg/dL Magnesium 1.0 L (1.6-2.3) mg/dL Total Bilirubin 0.7 (0.2-1.3) mg/dL AST 32 (14-36) U/L ALT 27 (6-35) U/L Alkaline Phosphatase 76 (38-126) U/L Total Protein 9.0 H (6.3-8.2) g/dL Albumin 4.1 (3.5-5.1) g/dL Influenza A (RT-PCR) Negative (Negative) Influenza B (RT-PCR) Negative (Negative) RSV (RT-PCR) Negative (Negative) SARS-CoV-2 RNA (RT-PCR) Negative (Negative) Discharge Plan Discharge Clinical Impression: COPD exacerbation, Tobacco abuse, Hypomagnesemia Patient Disposition: Still a Patient Condition: Improved Patient Language: Occitan Prescriptions: No Action ipratropium-albuterol 0.5 mg-3 mg(2.5 mg base)/3 mL solution for nebulization 3 ml inhalation Q6H PRN prednisone 10 mg tablet 10 mg PO DIRECTED Qty: 45 0RF Rx Instructions: Take 5 tablets by mouth daily for 3 days, then 4 tabs/day 3 days, 3 tabs/day 3 days, 2 tabs/day 3 days, 1 tab/day for 3 days atorvastatin 40 mg tablet 40 mg PO HS famotidine 40 mg tablet 40 mg PO DAILY fenofibrate 160 mg tablet 160 mg PO HS levothyroxine 50 mcg tablet 50 mcg PO DAILY metoprolol tartrate 50 mg tablet 25 mg PO BID Rx Instructions: pt stats, takes half in the morning and half at night. aspirin 81 mg tablet,delayed release (DR/EC) 81 mg PO HS Gamunex-C 40 gram/400 mL (10 %) solution 500 ml IV MONTHLY Patient Comments: Pt had an issue with insurance, is working on getting next dose scheduled, okay with not recieving during this admission Rx Instructions: 50g q28 days potassium chloride 10 mEq tablet extended release 10 meq PO DAILY estradiol 1 mg tablet 0.5 mg PO HS ropinirole 0.5 mg Tablet 0.5 mg PO TID gabapentin [Neurontin] 400 mg capsule 400 mg PO BID fluoxetine 20 mg tablet 20 mg PO HS Victoza 2-Sean 0.6 mg/0.1 mL (18 mg/3 mL) Pen Injector 1.8 mg SUBCUT DAILY Jardiance 25 mg Tablet 25 mg PO DAILY Breztri Aerosphere 160-9-4.8 mcg/actuation HFA aerosol inhaler 2 inh INHALATION BID oxycodone-acetaminophen [Percocet] 10-325 mg tablet 1 - 2 tablet PO Q4H PRN (Reason: pain) Qty: 30 0RF trazodone 100 mg tablet 100 mg PO HS albuterol sulfate 2.5 mg /3 mL (0.083 %) solution for nebulization 2.5 mg inhalation QID PRN (Reason: shortness of breath or wheezing) Qty: 360 3RF roflumilast [Daliresp] 500 mcg tablet See Rx Instructions .ROUTE .COMPLEX Qty: 90 0RF Dose Instruction: TAKE 1 TABLET BY MOUTH DAILY Rx Instructions: TAKE 1 TABLET BY MOUTH DAILY. Need appt for refills Follow-up/Referrals: George,Corey Peralta APRN [Primary Care Provider] -
[2024-12-06 00:22] LABS: Influenza A QL RT-PCR Negative (Negative); Influenza B QL RT-PCR Negative (Negative); RSV RNA, RT-PCR Negative (Negative); SARS-CoV-2 RNA PCR Negative (Negative)
--- OUTSIDE RECORDS SUMMARY | 2024-12-06 00:38 | XMS_ITS | Referral Summary ---
Author Organization [facility] [employer] Address [address] [facility] [place] [address] Care Team Providers Care Hub Bander Name Role Phone Angel Guerra MD Primary Care Provider Source Comments [facility],non-owned Affiliates and Associated Physician Practices is amultiple site organization consisting of ambulatory clinics and hospital sitesin [place], [place], [place] and [place]. This disclosure is being madepursuant to the Care Everywhere program and may not contain all information available regarding this patient. Last updated 18.[facility] [employer] Encounters Date Type Department Care Team Description 11/05/2024 Telephone [facility] - Allergy [address] [place] [phone] Lee Mendez MD Refill Request (Gamunex IVIG) 10/24/2024 Telephone [facility] - [facility]ergy [facility] [place] [phone] Lee Mendez MD MEDICATION REFILL (IVIG) 10/02/2024 Telephone [facility] - [facility]ergy [facility] [place] [phone] Lee Mendez MD Medication Issue 09/10/2024 Telephone [facility] - Allergy [address] [place] [phone] Lee Mendez MD Medication Issue 09/10/2024 Telephone [facility] - Allergy [address] [facility] [place] [phone] Lee Mendez MD Medication Problem from Last 3 Months Allergies Active Allergy Reactions Criticality Noted Date Comments Sulfa Drugs Other Low 02/07/2017 Malaise Medications * Be aware that medications may not be up to date on this document. Alwaysverify current medications with the patient. Medication Sig Dispensed Refills Start Date End Date Status levothyroxine (SYNTHROID) 50 MCG tablet Take 1 (one) tablet by mouth daily before breakfast 01/31/2017 Active potassium chloride (KLOR-CON) 10 MEQ tablet Take 1 (one) tablet by mouth once 01/18/2017 Active oxyCODONE-acetamino phen (PERCOCET) 10-325 MG tablet TK 1 T PO Q 4 TO 6 H PRN 0 02/01/2018 Active metoprolol tartrate (LOPRESSOR) 50 MG tablet Take 1 (one) tablet by mouth DAILY 0 01/26/2017 Active atorvastatin (LIPITOR) 40 MG tablet Take 1 (one) tablet by mouth DAILY 02/07/2017 Active estradiol (ESTRACE) 2 MG tablet Take 1 (one) tablet by mouth DAILY 0 01/20/2017 Active aspirin (ASPIRIN) 81 MG tablet Take 1 (one) tablet by mouth DAILY 02/07/2017 Active albuterol HFA (Ventolin HFA) 108 (90 Base) MCG/ACT inhaler Inhale 2 (two) puffs by mouth every 4 hours as needed 18 g 11 06/07/2022 Active famotidine (Pepcid) 40 MG tablet TAKE 1 TABLET BY MOUTH EVERY DAY 60 tablet 5 01/18/2024 Active Immune Globulin, Human, (immune globulin, GAMUNEX-C,) 500 mL by Intravenous route every 30 days 500 mL 11 03/25/2024 Active Blood Glucose Monitoring Suppl ([employer] Verio Flex System) w/Device KIT USE TO CHECK BLOOD GLUCOSE THREE TIMES DAILY 02/15/2023 Active Breztri Aerosphere 160-9-4.8 MCG/ACT inhaler INHALE 2 PUFFS BY MOUTH IN THE MORNING AND IN THE EVENING. RINSE MOUTH WITH WATER. DO NOT SWALLOW WATER 08/07/2024 Active Jardiance 25 MG tablet Take 1 (one) tablet by mouth once daily Active fenofibrate (Lofibra) 160 MG tablet Take 1 (one) tablet by mouth once daily 08/07/2024 Active FLUoxetine (PROzac) 20 MG tablet Take 1 (one) tablet by mouth once daily 07/31/2024 Active furosemide (Lasix) 40 MG tablet Take 1 (one) tablet by mouth 2 times daily as needed 08/05/2023 Active gabapentin (Neurontin) 400 MG capsule Take 1 (one) capsule by mouth 3 times daily Active OneTouch Verio test strip TEST BLOOD SUGARS THREE TIMES DAILY 08/20/2024 Active TRUEplus 5-Bevel Pen [place] 32G X 4 MM [facility] [place] TO [place] EVERY DAY 12/04/2023 Active albuterol-ipratropi um (Duo-Neb) 0.5-2.5 (3) MG/3ML nebulizer solution USE 1 VIAL VIA NEBULIZER FOUR TIMES DAILY FOR SHORTNESS OF BREATH Active Lancets (Cost Effective DataTOUCH DELICA PLUS 33G EXTRA FINE LANCET) USE TO CHECK BLOOD GLUCOSE THREE TIMES DAILY 2023 Active Victoza 18 MG/3ML pen ADMINISTER 1.8 MG UNDER THE SKIN EVERY DAY Active traZODone (Desyrel) 100 MG tablet Take 1 (one) tablet by mouth at bedtime Active azelastine (Astelin) 0.1 % nasal spray [place] 2 (two) sprays into each nostril 2 times daily 30 mL 11 08/29/2024 Active Active Problems Problem Noted Date Diagnosed Date Hypogammaglobulinemia 01/01/2018 Rash and other nonspecific skin eruption 017 Nicotine dependence, uncomplicated 05/10/2017 Obstructive sleep apnea 05/10/2017 Dependence on other enabling machines and device s 05/10/2017 Unspecified adverse effect of drug or medicament , sequela 05/10/2017 Other irritable bowel syndrome 05/10/2017 Gastro-esophageal reflux disease without esophag itis 05/10/2017 Chronic sinusitis 02/07/2017 Nasal polyp 02/07/2017 Chronic rhinitis 02/07/2017 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/2017 Severe persistent asthma, uncomplicated 02/08/20 17 Social History Tobacco Use Types Packs/Day Years Used Date Smoking Tobacco: Every Day Cigarettes Smokeless Tobacco: Current Tobacco Cessation:Ready to Q uit: Not Asked; Counseling Given: Not Answered Alcohol Use Standard Drinks/Week Comments No 0 (1 standard drink = 0.6 oz pur e alcohol) PHQ-2 Answer Date Recorded Patient Health Questionnaire-2 Score 0 09/26/2023 Sex and Gender Information Value Date Recorded Sex Assigned at Not on file Gender Identity Not on file Sexual Orientation Not on file Last Filed Vital Signs Vital Sign Reading Time Taken Comments Blood Pressure 114/70 08/29/2024 10:52 AM PHOTOGRAPHY SPOTTER Pulse 58 08/29/2024 10:52 AM PHOTOGRAPHY SPOTTER Temperature 36.3 C (97.4 F) 08/29/2024 10:52 AM PHOTOGRAPHY SPOTTER Respiratory Rate 18 09/26/2023 2:53 PM PHOTOGRAPHY SPOTTER Oxygen Saturation 93% 08/29/2024 10:52 AM PHOTOGRAPHY SPOTTER Inhaled Oxygen Concentration - - Weight 62.3 kg (137 lb 6.4 oz) 08/29/2024 10:52 AM PHOTOGRAPHY SPOTTER Height 160 cm (5' 3) 08/29/2024 10:52 AM PHOTOGRAPHY SPOTTER Body Mass Index 24.34 08/29/2024 10:52 AM PHOTOGRAPHY SPOTTER Plan of Treatment Upcoming Encounters Date Type Department Care Team (Late st Contact Info) Description 2025 3:00 PM PHOTOGRAPHY SPOTTER Office Visit [facility] [address] [place] [address], [facility] [place] [phone] Lee Mendez MD [address] [place] [address] OF ALLERGY/[place] [address] Care Teams Hub Bander Relationship Specialty Start Date End Date Angel Guerra MD [address] [place] [address] PCP - General 01/11/22
--- OUTSIDE RECORDS SUMMARY | 2024-12-06 00:38 | XMS_ITS | Patient Health Summary ---
Author Organization [facility] Address [address] [place] [address] Care Team Providers Care Funeral Arrangement Director Name Role Phone Angel Guerra MD Primary Care Provider Note from [facility],non-owned Affiliates and Associated Physician Practices is amultiple site organization consisting of ambulatory clinics and hospital sitesin [place], [place], [place] and [place]. This disclosure is being madepursuant to the Care Everywhere program and may not contain all information available regarding this patient. Last updated 18.[facility] Allergies * Sulfa Drugs(Other) -Low Criticality Medications * Be aware that medications may not be up to date on this document. Alwaysverify current medications with the patient. * levothyroxine (SYNTHROID) 50 MCG tablet(Started 01/31/2017) Take 1 (one) tablet by mouth daily before breakfast * potassium chloride (KLOR-CON) 10 MEQ tablet(Started 01/18/2017) Take 1 (one) tablet by mouth once * oxyCODONE-acetaminophen (PERCOCET) 10-325 MG tablet(Started 02/01/2018) TK 1 T PO Q 4 TO 6 H PRN * metoprolol tartrate (LOPRESSOR) 50 MG tablet(Started 01/26/2017) Take 1 (one) tablet by mouth DAILY * atorvastatin (LIPITOR) 40 MG tablet(Started 02/07/2017) Take 1 (one) tablet by mouth DAILY * estradiol (ESTRACE) 2 MG tablet(Started 01/20/2017) Take 1 (one) tablet by mouth DAILY * aspirin (ASPIRIN) 81 MG tablet(Started 02/07/2017) Take 1 (one) tablet by mouth DAILY * albuterol HFA (Ventolin HFA) 108 (90 Base) MCG/ACT inhaler(Started 06/07/2022) Inhale 2 (two) puffs by mouth every 4 hours as needed 11 refills by 06/07/2023 * famotidine (Pepcid) 40 MG tablet(Started 01/18/2024) TAKE 1 TABLET BY MOUTH EVERY DAY 5 refills by 01/17/2025 * Immune Globulin, Human, (immune globulin, GAMUNEX-C,)(Started 03/25/2024) 500 mL by Intravenous route every 30 days 11 refills by 03/25/2025 * Blood Glucose Monitoring Suppl (Lovliio Flex System) w/Device KIT (Started 02/15/2023) USE TO CHECK BLOOD GLUCOSE THREE TIMES DAILY * Breztri Aerosphere 160-9-4.8 MCG/ACT inhaler(Started 08/07/2024) INHALE 2 PUFFS BY MOUTH IN THE MORNING AND IN THE EVENING. RINSE MOUTH WITH WATER. DO NOT SWALLOW WATER * Jardiance 25 MG tablet Take 1 (one) tablet by mouth once daily * fenofibrate (Lofibra) 160 MG tablet(Started 08/07/2024) Take 1 (one) tablet by mouth once daily * FLUoxetine (PROzac) 20 MG tablet(Started 07/31/2024) Take 1 (one) tablet by mouth once daily * furosemide (Lasix) 40 MG tablet(Started 08/05/2023) Take 1 (one) tablet by mouth 2 times daily as needed * gabapentin (Neurontin) 400 MG capsule Take 1 (one) capsule by mouth 3 times daily * Endoartuch Verio test strip(Started 08/20/2024) TEST BLOOD SUGARS THREE TIMES DAILY * TRUEplus 5-Bevel Pen Tomball 32G X 4 MM [facility](Started 12/04/2023) USE TO INJECT VICTOZA EVERY DAY * albuterol-ipratropium (Duo-Neb) 0.5-2.5 (3) MG/3ML nebulizer solution USE 1 VIAL VIA NEBULIZER FOUR TIMES DAILY FOR SHORTNESS OF BREATH * Lancets (Eyefreight DELICA PLUS 33G EXTRA FINE LANCET)(Started 2023) USE TO CHECK BLOOD GLUCOSE THREE TIMES DAILY * Victoza 18 MG/3ML pen ADMINISTER 1.8 MG UNDER THE SKIN EVERY DAY * traZODone (Desyrel) 100 MG tablet Take 1 (one) tablet by mouth at bedtime * azelastine (Astelin) 0.1 % nasal spray(Started 08/29/2024) [place] 2 (two) sprays into each nostril 2 times daily 11 refills by 08/29/2025 Active Problems Problem Noted Date Diagnosed Date [...] Comments Blood Pressure 114/70 08/29/2024 10:52 AM [facility] Pulse 58 08/29/2024 10:52 AM [facility] Temperature 36.3 C (97.4 F) 08/29/2024 10:52 AM [facility] Respiratory Rate 18 09/26/2023 2:53 PM [facility] Oxygen Saturation 93% 08/29/2024 10:52 AM [facility] Inhaled Oxygen Concentration - - Weight 62.3 kg (137 lb 6.4 oz) 08/29/2024 10:52 AM [facility] Height 160 cm (5' 3) 08/29/2024 10:52 AM [facility] Body Mass Index 24.34 08/29/2024 10:52 AM [facility] Procedures * CBC W AUTO DIFFERENTIAL(Performed 08/29/2024) Performed for Hypogammaglobulinemia (HCC) * IGG BLOOD(Performed 08/29/2024) Performed for Hypogammaglobulinemia (HCC) * FLOW CYTOMETRY AGUILAR MEDIUM PANEL(Performed 09/26/2023) Performed for Hypogammaglobulinemia (HCC) * COMPREHENSIVE METABOLIC PANEL(Performed 09/26/2023) Performed for Hypogammaglobulinemia (HCC) * CBC W AUTO DIFFERENTIAL(Performed 09/26/2023) Performed for Hypogammaglobulinemia (HCC) * IMMUNOGLOBULINS IGG/IGM/IGA PANEL(Performed 09/26/2023) Performed for Hypogammaglobulinemia (HCC) * LAB RESULTS ORDER(Performed 04/28/2020) * LAB RESULTS ORDER(Performed 11/20/2019) * LAB RESULTS ORDER(Performed 07/03/2018) * LAB RESULTS ORDER(Performed 06/19/2018) * LAB HISTORICAL RESULTS-ONBASE(Performed 06/25/2017) * LAB HISTORICAL RESULTS-ONBASE(Performed 06/12/2017) * LAB HISTORICAL RESULTS-ONBASE(Performed 05/30/2017) * LAB HISTORICAL RESULTS-ONBASE(Performed 04/30/2017) * ALLERGEN COCKATIEL FEATHERS IGE(Performed 02/23/2017) * ALLERGEN COCKATIEL FEATHERS IGE(Performed 02/23/2017) * STREP PNEUMO AB IGG 23 SEROTYPES PANEL(Performed 02/23/2017) * IGM BLOOD(Performed 02/23/2017) * IGG BLOOD(Performed 02/23/2017) * FLOW CYTOMETRY AGUILAR MEDIUM PANEL(Performed 02/19/2017) * CBC W AUTO DIFFERENTIAL(Performed 02/19/2017) * CBC W AUTO DIFFERENTIAL(Performed 02/19/2017) * IGA BLOOD(Performed 02/07/2017) * DIPHTHERIA + TETANUS AB PANEL(Performed 02/07/2017) * CULTURE FUNGUS OTHER+FUNGUS SMEAR(Performed 08/20/2014) * CULTURE SPUTUM+GRAM STAIN(Performed 08/20/2014) * CULTURE AFB+SMEAR(Performed 08/20/2014) * CULTURE URINE(Performed 07/16/2014) * CULTURE SPUTUM+GRAM STAIN(Performed 07/15/2014) Results * (ABNORMAL) CBC WITH DIFFERENTIAL (08/29/2024 2:38 PM [facility]) Only the most recent of4 resultswithin the time period is included. [facility] Signature WBC 7.4 4.0 - 10.7 x10E9/L 08/29/2024 3:25 PM [facility] RBC Count 5.26(H) 3.90 - 5.20 x10E12/L 08/29/2024 3:25 PM [facility] Hemoglobin 14.7 11.9 - 15.8 g/dL 08/29/2024 3:25 PM [facility] Hematocrit 44.4 34.8 - 46.1 % 08/29/2024 3:25 PM [facility] MCV 84.4 80.0 - 98.0 fL 08/29/2024 3:25 PM [facility] MCH 27.9 26.7 - 33.6 pg 08/29/2024 3:25 PM [facility] MCHC 33.1 31.7 - 36.3 g/dL 08/29/2024 3:25 PM [facility] RDW-CV 14.6 11.3 - 14.8 % 08/29/2024 3:25 PM [facility] Platelet Count 161 150 - 420 x10E9/L 08/29/2024 3:25 PM [facility] MPV 9.6 7.8 - 11.4 fL 08/29/2024 3:25 PM [facility] Neutrophil % 70.0 41.0 - 74.0 % 08/29/2024 3:25 PM [facility] Lymphocyte % 21.8 17.0 - 47.0 % 08/29/2024 3:25 PM [facility] Monocyte % 4.5 3.0 - 11.0 % 08/29/2024 3:25 PM [facility] Eosinophil % 3.0 0.0 - 7.0 % 08/29/2024 3:25 PM [facility] Basophil % 0.4 0.0 - 1.6 % 08/29/2024 3:25 PM [facility] Immature Granulocytes % 0.3 0.0 - 1.0 % 08/29/2024 3:25 PM [facility] Neutrophil Absolute 5.16 1.60 - 7.50 x10E9/L 08/29/2024 3:25 PM [facility] Lymphocyte Absolute 1.61 1.00 - 4.40 x10E9/L 08/29/2024 3:25 PM [facility] Monocyte Absolute 0.33 0.15 - 1.00 x10E9/L 08/29/2024 3:25 PM [facility] Eosinophil Absolute 0.22 0.00 - 0.60 x10E9/L 08/29/2024 3:25 PM [facility] Basophil Absolute 0.03 0.00 - 0.13 x10E9/L 08/29/2024 3:25 PM [facility] Blood BLOOD SPECIMEN / Unknown Lab Venipuncture / Unknown 08/29/2024 2:38 PM [facility] 08/29/2024 3:16 PM [facility] Lee Mendez MD LAB - HEMATOLOGY ORD ERABLES [address] [address], [facility] [phone] * IGG BLOOD (08/29/2024 2:38 PM [facility]) Only the most recent of2 resultswithin the time period is included. Pathologist [facility] [place] IgG 953 767 - 1,590 mg/dL 08/29/2024 3:39 PM [facility] Blood BLOOD SPECIMEN / Unknown Lab Venipuncture / Unknown 08/29/2024 2:38 PM [facility] 08/29/2024 3:11 PM [facility] Lee Mendez MD LAB - CHEMISTRY ORDE RABSHAYY [address] [address], [place] [phone] * FLOW CYTOMETRY AGUILAR MEDIUM PANEL (09/26/2023 5:16 PM [facility]) Only the most recent of2 resultswithin the time period is included. Pathologist [facility] [place] Reason for test Hypogammaglobulinemi a ([facility]) 279.00 10:48 AM [facility] PATHOLOGY [facility] Client Specimen ID # [id number] 10:48 AM [facility] Number of Markers 9 10:48 AM [facility] Flow Cytometry Results Differential Result Comment WBC Count /uL 8,200 % Lymphocytes 19 Lymphocyte Count u/L 1,558 10:48 AM [facility] Flow Cytometry Results (Continued) Cell Region A: Lymphocytes Dual Labeled Results Results % Absolute Count (cells/uL) CD3 65 1,013 CD3+CD4+ 38 592 CD3+CD8+ 27 421 CD4:CD8 Ratio 1.41 CD19 11 171 CD27 75 1,169 CD56 13 203 sIgD 6 93 %CD4 & CD45RO 59 349 %CD4 &CD45RA 41 243 %CD27 & CD19 9 105 %CD19 & CD27 61 105 %CD19 & CD27 + IgD+ 33 57 %CD19 & CD27 + IgD- 33 57 %CD19 & CD27 - IgD+ 77 132 10:48 AM [facility] PATH[facility] Flow Cytometry Interpretation Testing is technical only and does not require an interpretation of results. 10:48 AM [facility] PATH[facility] Reference Range Adult Normal Referen ce Range Adult (> 18 years) CD3 54-84 % CD4 33-63 % CD8 12-39 % CD19 5-19 % CD56 6-26 % CD4+CD45RA+ 30-50 % CD4+CD45RO+ 17-42 % CD19+CD27+ 7-48 % CD19+CD27+IgD+ 7-29 % CD19+CD27+IgD- 3-23 % CD19+BS37-JuL+ 29-93 % % 10:48 AM [facility] PATHOLOGY LAB Disclaimer Test performed at [facility], [address] [place] [address], [address]. This test was developed and its performance characteristics determined by the Flow Cytometry Laboratory. It has not been cleared by the [place] Food and Drug Administration (FDA). The FDA has determined that such clearance or approval is not necessary. This test is used for clinical purposes. It should not be regarded as investigational or for research. This laboratory is regulated under the Clinical Laboratory Improvement Amendments of 1998 (CLIA) as a qualified to perform high complexity clinical testing. By law [place], CD4 lymphocyte counts on patients with HIV infection must be reported by the physician to the [facility] authority. 3 10:48 AM [facility] PATH[facility] Embedded Images 3 10:48 AM [facility] PATH[facility] Blood BLOOD SPECIMEN / Unknown Lab Venipuncture / Unknown 09/26/2023 5:16 PM [facility] 09/26/2023 5:37 PM [facility] Lee Mendez MD LAB - PATHOLOGY/CYTO LOGY ORDERABLES Performing Organization Address City/State/[facility] Co de Phone Number [facility] [address] [phone] * (ABNORMAL) COMPREHENSIVE METABOLIC PANEL (09/26/2023 5:16 PM [facility]) BUN 10 7 - 26 mg/dL 09/26/2023 6:02 PM [facility] Creatinine 0.48(L) 0.56 - 0.96 mg/dL 09/26/2023 6:02 PM [facility] Sodium 134(L) 136 - 145 mmol/L 09/26/2023 6:02 PM [facility] Potassium 4.2 3.5 - 4.5 mmol/L 09/26/2023 6:02 PM [facility] Chloride 96(L) 98 - 107 mmol/L 09/26/2023 6:02 PM [facility] CO2 27 22 - 29 mmol/L 09/26/2023 6:02 PM [facility] Glucose 89 70 - 115 mg/dL 09/26/2023 6:02 PM [facility] Calcium 9.6 8.4 - 10.2 mg/dL 09/26/2023 6:02 PM [facility] Protein Total 7.3 6.0 - 8.3 g/dL 09/26/2023 6:02 PM [facility] Albumin 3.7 3.4 - 5.0 g/dL 09/26/2023 6:02 PM [facility] Bilirubin Total 0.6 0.2 - 1.2 mg/dL 09/26/2023 6:02 PM [facility] Alkaline Phosphatase 63 40 - 150 U/L 09/26/2023 6:02 PM [facility] ALT 20 5 - 55 U/L 09/26/2023 6:02 PM [facility] AST 23 5 - 34 U/L 09/26/2023 6:02 PM [facility] Anion Gap 11 6 - 16 09/26/2023 6:02 PM [facility] BUN/Creatinine Ratio 21 7 - 23 09/26/2023 6:02 PM [facility] Osmolality Calculated 277 275 - 295 mOsm/kg 09/26/2023 6:02 PM [facility] Albumin/Globulin Ratio 1.0(L) 1.1 - 2.3 09/26/2023 6:02 PM [facility] eGFR by CKD-EPI >90 >=90 mL/min/1.7 3 m2 09/26/2023 6:02 PM [facility] Blood BLOOD SPECIMEN / Unknown Lab Venipuncture / Unknown 09/26/2023 5:16 PM [facility] 09/26/2023 5:33 PM [facility] Lee Mendez MD LAB - CHEMISTRY ORDMaicol VAZQUEZ [facility] [address] [place] [address], [facility] [phone] * IMMUNOGLOBULINS IGG/IGM/IGA PANEL (09/26/2023 5:16 PM [facility]) IgG 804 767 - 1,590 mg/dL 09/26/2023 6:02 PM [facility] IgM 72 37 - 286 mg/dL 09/26/2023 6:02 PM [facility] IgA 302 61 - 356 mg/dL 09/26/2023 6:02 PM [facility] Blood BLOOD SPECIMEN / Unknown Lab Venipuncture / Unknown 09/26/2023 5:16 PM [facility] 09/26/2023 5:29 PM [facility] Lee Mendez MD LAB - CHEMISTRY TATYANA VAZQUEZ Performing Organization Address [facility]/ZIP Co de Phone Number [facility] [address] [place] [address], [facility] [phone] * LAB RESULTS ORDER (04/28/2020 2:12 PM CDT) Only the most recent of4 resultswithin the time period is included. Narrative 04/28/2020 2:12 PM CDT Ordered by an unspecified provider. Scanned Document LAB - THERAPEUTIC DR GIANNA MONITORING ORDERABLES * LAB HISTORICAL RESULTS-ONBASE (06/25/2017) Only the most recent of4 resultswithin the time period is included. 06/25/2017 Historical Provider LAB - CHEMISTRY Tamara LUCIA Performing Organization Address [facility] Co de Phone Number [facility] [address] * (ABNORMAL) ALLERGEN COCKATIEL FEATHERS IGE (02/23/2017 10:00 AM CDT) Only the most recent of2 resultswithin the time period is included. Allergen Cockatiel Droppings IgE 0.44(H) <0.35 kU/L [facility] ([facility]) Class 1 [facility] ([facility]) Comment: Test Performed at: [facility] [address] [place] [phone] SONYA ALFORD,PHD 02/23/2017 10:0 0 AM CDT 02/20/2017 9:58 AM CDT Lee Mendez MD LAB - SEROLOGY ORDER ANNA Performing Organization Address City/[facility]/ZIP Co de Phone Number [facility] ([facility]) * STREP PNEUMO ANTIBODY IGG 23 SEROTYPES PANEL (02/23/2017 10:00 AM CDT) Serotype 1 (1) 0.5 mcg/mL [facility] ([facility]) Serotype 2 11.3 mcg/mL [facility] ([facility]) Serotype 2 (3) <0.3 mcg/mL [facility] ([facility]) Serotype 4 (4) 0.6 mcg/mL [facility] ([facility]) Serotype 5 (5) 1.0 mcg/mL [facility] ([facility]) Serotype 8 (8) 0.8 mcg/mL [facility] ([facility]) Serotype 9 (9N) 2.0 mcg/mL [facility] ([facility]) Serotype 12 (12F) 0.7 mcg/mL [facility] ([facility]) Serotype 14 (14) 7.2 mcg/mL [facility] ([facility]) Serotype 17 1.8 mcg/mL [facility] ([facility]) Serotype 19 (19F) 1.6 mcg/mL [facility] ([facility]) Serotype 20 0.8 mcg/mL [facility] ([facility]) Serotype 22 0.7 mcg/mL [facility] ([facility]) Serotype 23 (23F) 0.3 mcg/mL [facility] ([facility]) Serotype 26 (6B) 0.6 mcg/mL [facility] ([facility]) Serotype 34 1.1 mcg/mL [facility] ([facility]) Serotype 43 <0.3 mcg/mL [facility] ([facility]) Serotype 51 (7F) 2.0 mcg/mL [facility] ([facility]) Serotype 54 <0.3 mcg/mL [facility] ([facility]) Serotype 56 (18C) <0.3 mcg/mL [facility] ([facility]) Serotype 57 (19A) 0.7 mcg/mL [facility] ([facility]) Serotype 68 (9V) <0.3 mcg/mL [facility] ([facility]) Serotype 70 (33F) 0.4 mcg/mL [facility] ([facility]) Comment: Although the minimum serum antibody concentration necessary for protection has not been rigorously established for any pneumococcal serotype, a value of greater than or equal to 0.3-0.50 mcg/mL is supported by peer reviewed publications and expert consensus. This assay detects all of the 23 of the serotypes in the 23-valent vaccine and 12 of the 13 serotypes in the 13-valent conjugate vaccine. Immune response to the vaccine should result in protection against at least 50% of the serotypes in the vaccine. This test was developed and its analytical performance characteristics have been determined by [facility]. It has not been cleared or approved by FDA. This assay has been validated pursuant to the CLIA regulations and is used for clinical purposes. NO COLLECTION DATE RECEIVED. WE HAVE USED THE DATE THE SPECIMEN WAS RECEIVED BY THIS LABORATORY THE COLLECTION DATE. IF THIS IS INCORRECT, PLEASE CONTACT CLIENT SERVICES. PHONE NUMBER: [phone] Test Performed at: [facility] [address] [place] [address] Cari WADSWORTH 02/23/2017 10:0 0 AM CDT 02/20/2017 9:58 AM CDT Narrative [facility] ([facility]) - 02/23/2017 10:00 AM CDT 0.5 mL serum, Plastic screw-cap vail, Room temperature Lee Mendez MD LAB - CHEMISTRY ORDMaicol VAZQUEZ [facility] ([facility]) * IGM BLOOD (02/23/2017 10:00 AM CDT) IgM 53 48 - 271 mg/dL [facility] ([facility]) Comment: Test Performed at: [facility] [address] [place] [address] OFE MITCHELL DO,MPH Blood specimen (specimen) BLOOD SPECIMEN / Unknown 02/23/2017 10:00 AM CDT 02/20/2017 9:58 AM CDT Narrative [facility] ([facility]) - 02/23/2017 10:00 AM CDT 2 mL serum, SST, Room temperature Lee Mendez MD LAB - CHEMISTRY TATYANA VAZQUEZ Performing Organization Address [facility]/State/ZIP Co de Phone Number [facility] ([facility]) * DIPHTHERIA + TETANUS AB PANEL (02/07/2017) Diphtheria Antitoxoid Antibody >2.00 IU/mL [facility] ([facility]) Comment: REFERENCE RANGE: > or = 0.01 IU/mL (Post-Vaccination) INTERPRETIVE CRITERIA: <0.01 IU/mL Nonprotective Antibody Level > or = 0.01 IU/mL Protective Antibody Level This test was developed and its analytical Performance characteristics have been determined by [facility]. It has not been cleared or approved by FDA. This assay has been validated pursuant to the CLIA regulations and is used for clinical purposes. Tetanus Antibody 9.28 IU/mL [facility] ([facility]) Comment: REFERENCE RANGE: > or = 0.50 IU/mL (Post-Vaccination) INTERPRETIVE CRITERIA: <0.05 IU/mL Nonprotective Antibody Level 0.05 - 0.49 IU/mL Indeterminate for Protective Antibody > or = 0.50 IU/mL Protective Antibody Level > or = 0.50 IU/mL Protective Antibody Level Levels greater than or equal to 0.50 IU/mL are generally considered protective, whereas levels less than 0.05 IU/mL indicate a lack of protective antibody. Levels between 0.05 and 0.49 IU/mL are indeterminate for the presence of protective antibody and may indicate a need for further immunization to tetanus toxoid. This test was developed and its analytical Performance characteristics have been determined by [facility]. It has not been cleared or approved by FDA. This assay has been validated pursuant to the CLIA regulations and is used for clinical purposes. REPORT COMMENT: 2 ML SERUM, PLASTIC SCREW TOP VIAL, REFREGERATE 2 ML SERUM, SST, ROOM TEMPERTURE Test Performed at: [facility], [address] [address] Cari WADSWORTH 02/07/2017 02/20/2017 7:2 0 AM CDT Narrative [facility] ([facility]) - 02/25/2017 5:00 PM CDT 2 mL serum, Plastic screw top vial, Refregerate Lee Mendez MD LAB - SEROLOGY ORDER ANNA Performing Organization Address [facility] Co de Phone Number [facility]) * IGA BLOOD (02/07/2017) IgA 272 81 - 463 mg/dL [facility] ([facility]) Comment: Test Performed at: [facility] [place] [address] [place] [address] OFE MITCHELL DO,MPH Blood specimen (specimen) BLOOD SPECIMEN / Unknown 02/07/2017 02/20/2017 7:20 AM CDT Narrative [facility] ([facility]) - 02/25/2017 5:00 PM CDT 2 mL serum, SST, Room temperture Lee Mendez MD LAB - CHEMISTRY TATYANA VAZQUEZ [facility] ([facility]) * (ABNORMAL) CULTURE FUNGUS OTHER+FUNGUS SMEAR (08/20/2014 10:52 AM [facility]) Culture Fungus-Other MAYCOL ALBICANS(A) [facility] Comment:Very Light Growth Ca ndida Albicans Fungus Smear No Fungi seen. [facility] Sputum specimen (specimen) SPUTUM / Unknown 08/20/2014 10:52 AM [facility] 08/21/2014 10:52 AM [facility] Narrative [facility] - 09/21/2014 2:53 PM [facility] Specimen Type->Sputum Historical Provider LAB - MICROBIOLOG Y ORDERABLES Performing Organization Address [facility] de Phone Number [address] [phone] * CULTURE SPUTUM+GRAM STAIN (08/20/2014 10:52 AM [facility]) Only the most recent of2 resultswithin the time period is included. Culture Sputum Growth of respiratory bonnie. [facility] Gram Stain [facility] Comment:not ordered for gram stain per gen req Sputum specimen (specimen) SPUTUM / Unknown 08/20/2014 10:52 AM [facility] 08/21/2014 10:52 AM [facility] Narrative [facility] - 08/22/2014 10:24 AM [facility] Specimen Type->Sputum Gram Stains are routinely screened for the presence of Polymorphonuclear Cells. Orders also received for AFB smear and culture by General Requisition. Quantity of specimen insufficient for AFB testing. Historical Provider MD LAB - MICROBIOLOG Y ORDERABLES Performing Organization Address [facility] Co de Phone Number [address] [phone] * CULTURE AFB+SMEAR (08/20/2014 10:52 AM [facility]) Culture Acid Fast Bacilli Quantity not sufficient for acid fast culture. Testing not performed. Called Robina at [facility] on 08/21/14 at 1005. [facility] AFB Smear No Acid Fast bacilli seen on direct smear. [facility] Sputum specimen (specimen) SPUTUM / Unknown 08/20/2014 10:52 AM [facility] 08/21/2014 12:58 PM [facility] Narrative [facility] - 08/21/2014 12:59 PM [facility] Specimen Type->Sputum Historical Provider LAB - MICROBIOLOG Y ORDERABLES [address] [phone] * CULTURE URINE (07/16/2014 9:25 PM CDT) Culture Urine Less than 10,000 CFU/ML of Normal Urogenital/ Skin Bonnie [facility] Comment:. Urine specimen (specimen) URINE SPECIMEN OBTAINED BY CLEAN CATCH PROCEDURE / Unknown 07/16/2014 9:25 PM CDT 07/17/2014 10:21 AM CDT [facility] - 07/19/2014 9:22 AM CDT AndersonSpecimen#[id number] Ramy Loc/Rm/Bed: 3 MED/320/02 CLN CATCH U Historical Provider LAB - MICROBIOLOG Y ORDERABLES [address] [phone] Care Teams Funeral Arrangement Director Relationship Specialty Start Date End Date Angel Gurera MD [address] [place] [address] PCP - General 01/11/22
--- OUTSIDE RECORDS SUMMARY | 2024-12-06 00:38 | XMS_ITS | Clinical Summary ---
Author Organization [facility] travayl Address [address] [place] [address] Care Team Providers Care Confectionery Cooker Name Role Phone Angel Guerra MD Primary Care Provider Source Comments [facility],non-owned Affiliates and Associated Physician Practices is amultiple site organization consisting of ambulatory clinics and hospital sitesin [place], [place], [place] and [place]. This disclosure is being madepursuant to the Care Everywhere program and may not contain all information available regarding this patient. Last updated 18.[facility] Allergies Active Allergy Reactions Criticality Noted Date [...] 11 03/25/2024 Active Blood Glucose Monitoring Suppl (Zendrive Flex System) w/Device KIT USE TO CHECK [...] capsule by mouth 3 times daily Active Zendrive test strip TEST BLOOD SUGARS THREE TIMES DAILY 08/20/2024 Active TRUEplus 5-Bevel Pen [place] 32G X 4 MM [facility] USE TO INJECT VICTOZA EVERY DAY 12/04/2023 Active albuterol-ipratropi um (Duo-Neb) 0.5-2.5 (3) MG/3ML nebulizer solution USE 1 VIAL VIA NEBULIZER FOUR TIMES DAILY FOR SHORTNESS OF BREATH Active Lancets (JottUCH DELICA PLUS 33G EXTRA FINE LANCET) USE TO CHECK BLOOD GLUCOSE THREE TIMES DAILY 2023 Active Victoza 18 MG/3ML pen ADMINISTER 1.8 MG UNDER THE SKIN EVERY DAY Active traZODone (Desyrel) 100 MG tablet Take 1 (one) tablet by mouth at bedtime Active azelastine (Astelin) 0.1 % nasal spray [place] 2 (two) sprays into each nostril 2 [...] 02/07/2017 Severe persistent asthma, uncomplicated 02/08/20 17 Encounters Date Type Department Care Team Description 11/05/2024 Telephone [facility] [address] [place] [phone] Lee Mendez MD Refill Request (Gamunex IVIG) 10/24/2024 [place] [facility] [address] [place] [phone] Lee Mendez MD MEDICATION REFILL (IVIG) 10/02/2024 [place] [facility] [address] [place] [phone] Lee Mendez MD Medication Issue 09/10/2024 [place] [facility] [address] [place] [phone] Lee Mendez MD Medication Issue 09/10/2024 [place] [facility] [address] [place] [phone] Lee Mendez MD Medication Problem from Last 3 Months Social History Tobacco Use Types Packs/Day Years [...] Comments Blood Pressure 114/70 08/29/2024 10:52 AM [employer] OPERATOR Pulse 58 08/29/2024 10:52 AM [employer] OPER[employer] Temperature 36.3 C (97.4 F) 08/29/2024 10:52 AM [employer] OPERATOR Respiratory Rate 18 09/26/2023 2:53 PM [employer] OPERATOR Oxygen Saturation 93% 08/29/2024 10:52 AM [employer] OPERATOR Inhaled Oxygen Concentration - - Weight 62.3 kg (137 lb 6.4 oz) 08/29/2024 10:52 AM [employer] OPERATOR Height 160 cm (5' 3) 08/29/2024 10:52 AM [employer] OPERATOR Body Mass Index 24.34 08/29/2024 10:52 AM [employer] OPERATOR Plan of Treatment Upcoming Encounters Date Type Department Care Team (Late st Contact Info) Description 2025 3:00 PM [employer] OPERATOR Office Visit [facility] [address] [place] [address], [place] [phone] Lee Mendez MD [address] [place] [address] OF ALLERGY/[place] [address] Health Maintenance Due Date Last Done Comments COLOGUARD (AGES 45-75) - COLON CA SCREENING 1962 COLON MONITORING 1962 COLONOSCOPY - COLON CA SCREENING 1962 CT COLONOGRAPHY - COLON CA SCREENING 1962 Colorectal Cancer Screening 1962 FIT - COLON CA SCREENING 1962 FLEX SIG - COLON CA SCREENING 1962 MAMMOGRAM 1962 PAP SMEAR 1962 HIV SCREENING 1977 HEPATITIS C SCREENING 08/28/1980 DTAP/TDAP/TD VACCINES (1 - Tdap) 1981 PNEUMOCOCCAL VACCINE 50+ (1 of 2 - PCV) 1981 ZOSTER VACCINE (1 of 2) 2012 Respiratory Syncytial Virus (RSV) Vaccine Pt: or over 60 yrs (1 - Risk 60-74 years 1-dose series) 2022 COVID-19 VACCINE ( season) 2024 INFLUENZA VACCINE (#1) 2024 9, 07/25/2018, 08/01/2017, Additional history exists DEPRESSION SCREENING 10/15/2024 09/26/2023, 06/07/20 HEPATITIS B VACCINE Aged Out No longe r eligible based on patient's age to complete this topic HIB VACCINE Aged Out No longer eligi ble based on patient's age to complete this topic HPV VACCINE Aged Out No longer eligi ble based on patient's age to complete this topic MENINGOCOCCAL (Group B) VACCINE Aged Out No longer eligible based on patient's age to complete this topic MENINGOCOCCAL VACCINE Aged Out No gerardo meir eligible based on patient's age to complete this topic Care Teams Confectionery Cooker Relationship Specialty Start Date End Date Angel Guerra MD [address] [place] [address] PCP - General 01/11/22
--- OUTSIDE RECORDS SUMMARY | 2024-12-06 00:38 | XMS_ITS | Encounter Summary ---
Author Organization [facility] Address [address] [place] [address] Care Team Providers Care Analytics Senior Manager Name Role Phone Paulette Pedraza MD Primary Care Provider [phone] New Referring, Provider Primary Care Provider Un available Paulette Pedraza MD Unavailable [phone] Lee Mendez MD Unavailable [phone] Paulette Pedraza MD Primary Care Provider + [phone] Encounter Details Date Type Department Care Team (Late st Contact Info) Description 05/15/2018 Abstract [facility] Family & Internal Medicine [facility] [address] [place] [phone] [place] [address] [place] [address] Social History Tobacco Use Types Packs/Day Years Used Date Smoking Tobacco: Never Assessed Comments Unknown Sex and Gender Information Value Date Recorded Sex Assigned at Not on file Legal Sex Female 4:10 PM CDT Gender Identity Not on file Sexual Orientation Not on file documented as of this encounter Plan of Treatment Not on file documented as of this encounter Visit Diagnoses Not on filedocumented in this encounter Care Teams Analytics Senior Manager Relationship Specialty Start Date End Date Paulette Pedraza MD PCP - General 11/28/16 09/01/19 New Referring, Provider PCP - General UNKNOWN PHYSICIAN SPECIALTY 09/02/19 02/09/20 Paulette Pedraza MD PCP - General INTERNAL MEDICINE 02/10/20 01/04/21 Paulette Pedraza MD 09/02/19 01/04/21 Lee Mendez MD INTERNAL MEDICINE 09/03/19 documented as of this encounter
--- OUTSIDE RECORDS SUMMARY | 2024-12-06 00:38 | XMS_ITS | Clinical Summary ---
Author Organization [facility] Address [address] [place] [address] Care Team Providers Care Dry Cell Assembly Supervisor Name Role Phone Lee Mendez MD Unavailable [phone] Allergies Active Allergy Reactions Criticality Noted Date Comments Sulfa Antibiotics Other (see comment) Low 7 Malaise Sulfacetamide Vomiting Low 06/03/2018 Medications albuterol (2.5 MG/3ML) 0.083% nebulizer solution 2 puffs every 4 hours as needed for COPD 11 07/30/20 18 Active atorvastatin 40 MG tablet take one tablet by mouth daily for cholesterol. 3 08/04/20 18 Active vitamin B-12 1000 MCG tabletIndications :Deficiency of other B group vitamins Take 1 tablet by mouth daily. 06/03/20 18 Active fenofibrate 160 MG tablet take one tablet by mouth daily for cholesterol. 3 08/04/20 18 Active furosemide 40 MG tabletIndications :Edema Take 1 tablet by mouth daily. 11/14/19 14 Active ATROVENT HFA 17 MCG/ACT inhaler inhale 2 puffs four times daily as needed for shortness of breath. 11 08/25/20 18 Active montelukast 10 MG tabletIndications :Cough Take 1 tablet by mouth daily. 06/03/20 18 Active metoprolol tartrate 50 MG tabletIndications :Hypertension Take 50 mg by mouth daily. 10/15/19 19 Active oxyCODONE-acetami nophen 10-325 MG tablet take one tablet by mouth every 4-6 hours as needed for pain. 0 08/28/20 18 Active potassium chloride 10 MEQ Tab CR tabletIndications :Decreased Serum Potassium Take 10 mEq by mouth 2 (two) times daily. Indications: Decreased Blood Potassium Levels 3 08/08/20 Active ropinirole 0.5 MG tablet take one tablet by mouth daily for restless legs syndrome 1 08/20/20 Active diphenhydrAMINE 25 MG tabletIndications :Infusion Related Reaction Take 25 mg by mouth every 6 (six) hours as needed for Allergies or Itching. Take 1 tablet 30 minutes prior to IVIG infusion PRN and every 6 hours PRN for itching. 10/15/19 Active calcium, elemental, 600 MG tabletIndications :Nutritional Support Take 1,200 mg by mouth daily. Take 1 tablet daily. 10/15/19 Active immune globulin, Human, 20 GM/200ML SolutionIndicatio ns:Immunoglobulin Suppression (Inactive) Inject 50 g into the vein every 30 (thirty) days. * EVERY 4 WEEKS* TOTAL DOSE INFUSED IS 50 GRAMS (TWO 20 GRAM/200ML BOTTLES AND 1 10GRAM/100ML BOTTLE) FOR HYPOGAMMAGLOBULIN EMIA. INFUSE AT RATE OF 50 ML/HOUR FOR 15 MINUTES FOR VOLUME OF 25 ML, THENRATE OF 100 ML/HR FOR 15 MINUTES FOR VOLUME OF 25 ML, THEN RATE OF 200 ML/HOUR FOR 15 MINUTES FOR VOLUME OF 50 ML, THEN RATE OF 300 ML/HOUR FOR 30 MIN FOR A VOLUME OF 200ML. THEN 400ML/HOUR FOR 30 MIN FOR A VOLUME OF 200MLS. TOTAL VOLUME OF 500 ML. 06/02/20 Active nystatin cream MERISSA TO RASH BID PRN for antifungal 0 06/25/20 Active ipratropium 0.03 % nasal spray use 2 sprays each nostril 3 times daily as needed for congestion 6 06/19/20 Active Fluticasone-Salme terol 232-14 MCG/ACT AEROSOL POWDER, BREATH ACTIVATEDIndicati ons:COPD with Bronchospasms Prophylaxis Inhale 1 puff into the lungs 2 (two) times a day. Indications: Treatment to Prevent COPD with Bronchospasms 03/01/20 Active naloxone 4 MG/0.1ML nasal sprayIndications: Opioid use [The details of the medication are not available because there are pending changes by a home health clinician.] 1 each 2 08/05/20 Active Additional Information Patient taking differently:1 spray Nasal As needed, Opioid reversal,Indications: Overdose, Reported on 09/30/2019 lidocaine 4 % creamIndications: Pain Apply 1 each topically as needed (IV insertion). Apply topically to area IV insertion is to occur. Allow to sit for 20 minutes before cleaning off and inserting IV. Indications: Pain 09/02/20 Active nitroglycerin 0.4 MG SL tabletIndications :Chest Pain Place 0.4 mg under the tongue every 5 (five) minutes as needed. Indications: Chest Pain 09/23/20 Active azelastine 0.1 % nasal sprayIndications: Allergic Rhinitis 1 spray by Nasal route 2 (two) times daily. Indications: Allergic Rhinitis 10/21/19 Active sodium chloride 0.9 % solutionIndicatio ns:Intravenous Administration,Ve nipuncture or Intravenous Cannulation Inject 3 mLs into the vein see administration instructions. Flush 3 mLs, via peripheral iv site, prior to infusion and 3 mLs when infusion complete, and after blood draw Indications: Administration of Medications Into the Veins, Introduction of Needle or Catheter Into Vein 03/01/20 Active aspirin 81 MG chewable tabletIndications :Benign Hypertensive Heart Disease Chew 81 mg by mouth daily. Indications: Benign Hypertensive Heart Disease 04/02/20 Active psyllium 400 MG capsuleIndication s:Mixed hyperlipidemia [The details of the medication are not available because there are pending changes by a home health clinician.] 100 capsule 3 04/06/20 Active Additional Information Patient taking differently:400 mg Oral 2 times daily,Indications: Constipation, Reported on 06/01/2020 glipiZIDE 5 MG tabletIndications :Uncontrolled type 2 diabetes mellitus with hyperglycemia ([facility]) [The details of the medication are not available because there are pending changes by a home health clinician.] 180 tablet 1 04/06/20 Active Additional Information Patient taking differently:5 mg Oral 2 times daily before meals,Indications: Diabetes Mellitus, Reported on 08/26/2020 ALPRAZolam 0.5 MG tabletIndications :Primary insomnia TAKE 1 TABLET(0.5 MG) BY MOUTH EVERY NIGHT NEEDED FOR SLEEP OR ANXIETY PRN 30 tablet 5 04/06/20 Active insulin glargine 100 UNIT/ML injection (PEN)Indications: Uncontrolled type 2 diabetes mellitus with hyperglycemia ([facility]) Inject 20 Units into the skin nightly at bedtime. 1 pen 3 04/06/20 Active Additional Information Patient taking differently:20 Units Subcutaneous Nightly at bedtime,For diabetes., Indications: Diabetes Mellitus, Reported on 06/08/2020 insulin lispro (HUMALOG) 100 UNIT/ML injection (VIAL)Indications :Uncontrolled type 2 diabetes mellitus with hyperglycemia ([facility] HHS/HCC) Inject 4-10 Units into the skin 3 (three) times daily before meals. Per sliding scale 10 mL 12 04/06/20 Active Additional Information Patient taking differently:4-10 Units Subcutaneous 3 times daily before meals,Per sliding scale for diabetes mellitus., Indications: Diabetes Mellitus, Reported on 06/08/2020 COMPRESSION STOCKINGSIndicati ons:Local edema 1 Units by Does not apply route daily. 1 box moderate compression 20 1 Container 5 04/06/20 Active famotidine 40 MG tabletIndications :Acid Regurgitation Take 1 tablet (40 mg total) by mouth daily. Indications: Acid Regurgitation 90 tablet 1 04/06/20 Active levothyroxine 50 MCG tabletIndications :Hypothyroidism, unspecified type Take 1 tablet (50 mcg total) by mouth daily. 90 tablet 3 04/06/20 Active Additional Information Patient taking differently:50 mcg Oral Daily,For Thyroid Disease., Indications: Thyroid Disease, Reported on 06/08/2020 Continuous Blood Gluc Scrum Product Owner (DEXCOM G5 EXTRACTOR AND WRINGER OPERATOR KIT) DeviceIndications :Uncontrolled type 2 diabetes mellitus with hyperglycemia ([facility] HHS/HCC) 1 Device by Does not apply route 4 (four) times a day. Check glucose qid ac & hs insulin dependent uncontrolled 1 Device 04/07/20 Active Insulin Pen Needle (B-D UF III MINI PEN NEEDLES) 31G X 5 MM MiscIndications:U ncontrolled type 2 diabetes mellitus with hyperglycemia ([facility] HHS/HCC) Use with insulin daily 100 Container 3 04/08/20 Active Insulin Syringe-Needle U-100 (INSULIN SYRINGE 1CC/31GX5/16) 31G X 5/16 1 ML MiscIndications:D iabetes mellitus type 2, uncontrolled USE DIRECTED WITH INSULIN 3 TO 4 TIMES DAILY 100 each 3 05/07/20 Active WIXELA INHUB 250-50 MCG/DOSE inhaler Inhale 1 puff into the lungs 2 (two) times daily. 04/10/20 Active ESTRADIOL 1 MG tabletIndications :Menopausal symptoms [The details of the medication are not available because there are pending changes by a home health clinician.] 30 tablet 06/22/20 20 Active Additional Information Patient taking differently: TAKE 1 TABLET(1 MG) BY MOUTH DAILY FOR REPLACEMENT THERAPY, Reported on 08/26/2020 predniSONE 10 mg tabletIndications :Severe persistent asthma, uncomplicated (CMS/HCC HHS/HCC) Tapering dose 4 tabs x 4 days, then 3 tabs x 4, then 2 T x 4, then 1 tab x 4 day. 40 tablet 06/24/20 20 Active venlafaxine XR 37.5 MG 24 hr capsuleIndication s:Anxiety Take 1 capsule (37.5 mg total) by mouth daily. 14 capsule 07/23/20 20 Active budesonide-formot monica (SYMBICORT) 160-4.5 MCG/ACT inhalerIndication s:COPD exacerbation, complicated Inhale 2 puffs into the lungs 2 (two) times daily. Indications: COPD exacerbation, complicated 07/23/20 20 Active Roflumilast (DALIRESP) 250 MCG TabIndications:CO PD exacerbation, complicated Take 250 mg by mouth daily. Indications: COPD exacerbation, complicated 07/23/20 20 Active METFORMIN 500 MG tabletIndications :Uncontrolled type 2 diabetes mellitus with hyperglycemia (CMS/HCC HHS/HCC) TAKE 1 TABLET(500 MG) BY MOUTH EVERY NIGHT 30 tablet 09/15/20 20 Active pioglitazone 30 MG tabletIndications :Uncontrolled type 2 diabetes mellitus with hyperglycemia (CMS/HCC HHS/HCC) Take 1 tablet (30 mg total) by mouth daily. Increased dose 90 tablet 10/05/20 20 Active OMEPRAZOLE 20 MG capsuleIndication s:Gastroesophagea l reflux disease without esophagitis TAKE 1 TABLET BY MOUTH DAILY FOR GERD 90 capsule 10/11/20 20 Active pseudoephedrine 30 MG tabletIndications :Asthma, mild intermittent (HHS/HCC),COPD with asthma (CMS/HCC HHS/HCC) TAKE 2 TABLETS BY MOUTH THREE TIMES DAILY NEEDED 60 tablet 2 10/18/19 21 Active Active Problems Problem Noted Date Diagnosed Date Productive cough 04/30/2019 Assessment & Plan (04/30/2019 10:13 AM CDT): Productive cough, fevers, and BERTRAND. UA was normal so will get CXR as she had wheezing and rhonchi R>L Will decide treatment based on results of CXR Wrist pain 01/24/2018 Irritable bowel syndrome (IBS) 11/26/2017 Unspecified adverse effect of drug or medicament , sequela 05/10/2017 Obstructive sleep apnea 05/10/2017 Nicotine dependence, uncomplicated 05/10/2017 Coronary artery disease with stable angina pecto ris 03/09/2017 Severe persistent asthma, uncomplicated ([facility]) 02/07/2017 Nasal polyp 02/07/2017 Hypogammaglobulinemia ([facility]) 02/08/20 17 Chronic rhinitis 02/07/2017 Fatigue 12/11/2016 Finger infection 10/10/2016 Overview (09/16/2018): Annotation - [id number]: 10/24/15 Dx, MRI, DM & immune deficiency; R index finger Impingement syndrome of left shoulder 05/28/2015 Gastroesophageal reflux dise ase, esophagitis presence not specified 01/04/2015 Primary osteoarthritis of left knee 01/04/2015 COPD with asthma ([facility]) 08/03/2014 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 Overview (09/16/2018): Annotation - [id number]: per Dr Lowery Diabetes mellitus type 2, uncontrolled 4 Insulin long-term use ([facility]) 04/08/20 14 Anxiety 11/17/2013 Asthma, mild intermittent ([facility]) 11/17/2013 Neck pain 11/17/2013 Overview (09/16/2018): Onset: 11/17/1993; Description: fell in had Lumbar fx & surgery with rods, chronic LBP Onset: 11/17/1993; Description: herniated disc Hyperlipidemia 11/17/2013 Hypertension 11/17/2013 Hypothyroidism 11/17/2013 Knee pain, right 11/17/2013 Menopausal symptoms 11/17/2013 Immunizations Name Administration Dates Next Due Fluzone 6 Months+ Quad (0.5 mL Prefilled Syringe) 08/05/2019 Influenza (Generic) 07/18/2014 Influenza Adult (Generic) 07/25/2018,08/01/2017, 07/21/2016 Pneumococcal (Pneumovax 23) 03/13/2017, 6,07/18/2014 Td (Tenivac) preservative free 10/10/2016 Family History Medical History Relation Comments Heart Disease Father Diabetes Mother Heart Disease Mother Cancer Other Relation Status Comments Father Mother Other Social History Tobacco Use Types Packs/Day Years Used Date Smoking Tobacco: Every Day Cigarettes 0.3 40 Smokeless Tobacco: Never Tobacco Cessation:Ready to Q uit: No; Counseling Given: Yes Alcohol Use Standard Drinks/Week Comments No 0 (1 standard drink = 0.6 oz pur e alcohol) AUDIT-C Answer Date Recorded Frequency of Alcohol Consumption Never 04/30/2019 Average Number of Drinks Not on file 019 Frequency of Binge Drinking Not on file 04/14 PHQ-2 Answer Date Recorded PHQ-2 Score - If the patient scores above 3, please move on to questions 3-9 0 04/06/2020 Comments No Sex and Gender Information Value Date Recorded Sex Assigned at Not on file Legal Sex Female 4:10 PM CDT Gender Identity Not on file Sexual Orientation Not on file Last Filed Vital Signs Vital Sign Reading Time Taken Comments Blood Pressure 122/64 09/28/2020 9:38 AM FURRIER APPRENTICE Pulse 85 09/28/2020 9:38 AM FURRIER APPRENTICE Temperature 36.9 C (98.4 F) 09/28/2020 9:38 AM FURRIER APPRENTICE Respiratory Rate 18 09/28/2020 9:38 AM FURRIER APPRENTICE Oxygen Saturation 94% 09/28/2020 9:38 AM FURRIER APPRENTICE Inhaled Oxygen Concentration - - Weight 81.6 kg (180 lb) 06/08/2020 9:11 AM CDT Height 162.6 cm (5' 4) 06/08/2020 9:11 AM CDT Body Mass Index 30.9 06/08/2020 9:11 AM CDT Plan of Treatment Health Maintenance Due Date Last Done Comments ASCVD Statin 1962 Cervical Cancer Screening Pap Smear (Age 30 to 64) Every 3 Years 1962 Kidney Health Evaluation 1962 Annual Physical 1965 COVID-19 Vaccine (#1) 1967 Diabetes: Retinopathy Eye Exam 1980 Hepatitis C 1980 Zoster Vaccines (1 of 2) 1981 Cervical Cancer Screening Pap with HPV Testing (Age 30 to 64) Every 5 Years 1992 Cervical Cancer Screening with HPV 1992 Mammogram Screening 2002 DTaP, Tdap and Td Vaccines (1 - Tdap) 10/11/2016 10/10/2016 Pneumococcal Vaccine: Pediatrics (0 to 5 Years) and At-Risk Patients (6 to 64 Years) (3 of 3 - PCV) 03/13/2018 03/13/2017, 07/21/2016, 07/18/2014 Hemoglobin A1C 03/29/2021 09/28/2020, 03/15, 12/05/2019, Additional history exists ASCVD LDL 04/02/2021 04/02/2020, 11/16, 10/04/2018, Additional history exists Lipid Panel 04/02/2021 04/02/2020, 11/16, 10/04/2018, Additional history exists RSV Immunization or 60+ Years (1 - Risk 60-74 years 1-dose series) 2022 Influenza Adult (#1) 2024 08/05/2019, 07/25/2018, 08/01/2017, Additional history exists Colorectal Cancer Screening Colonoscopy (10 Years) 07/15/2025 07/15/2015 Meningococcal B Vaccine Aged Out No l onger eligible based on patient's age to complete this topic Meningococcal Vaccine Aged Out No gerardo meir eligible based on patient's age to complete this topic RSV Immunizations Under 20 Months Aged Out No longer eligible based on patient's age to complete this topic Procedures Procedure Name Priority Date/Time Associated Diagnosis Comments HEMOGLOBIN, GLYCOSYLATED Routine 09/28/2020 11:20 AM FURRIER APPRENTICE Uncontrolled type 2 diabetes mellitus with hyperglycemia ([facility]) LIPID PANEL Routine 04/02/2020 11:05 AM CDT Mixed hyperlipidemia COLONOSCOPY Routine 07/15/2015 12:00 AM CDT from Last 3 Months or Most Recently Relevant to Health Maintenance Results * (ABNORMAL) HEMOGLOBIN, GLYCOSYLATED (09/28/2020 11:20 AM FURRIER APPRENTICE) HGB A1C 7.5(H) <5.7 % 09/29/2020 1:40 PM FURRIER APPRENTICE [facility] Comment: INCREASED RISK OF DIABETES <5.7% NON-DIABETES 5.7-6.4% INCREASED RISK FOR FUTURE DIABETES > OR = 6.5 CONSISTENT WITH DIABETES STANDARDS OF MEDICAL CARE IN DIABETES-2010 DIABETES CARE, 33(SUPP 1): S1-S61,2009 09/28/2020 11:2 0 AM FURRIER APPRENTICE Paulette Pedraza MD LABORATORY Final Result [facility] [address] [place] [address], * LIPID PANEL (04/02/2020 11:05 AM CDT) CHOLESTEROL 114 <200.0 MG/DL 04/02/2020 2:56 PM CDT [facility] TRIGLYCERIDES 111 <150 MG/DL 04/02/2020 2:56 PM CDT [facility] HDL 50 >40.0 MG/DL 04/02/2020 2:56 PM CDT [facility] LDL (CALCULATED) 42 <100 MG/DL 04/02/20 20 2:56 PM CDT [facility] NON HDL CHOLESTEROL 64 <130 MG/DL 04/02 2:56 PM CDT [facility] CHOL/HDL RATIO 2.3 0.0 - 4.5 04/02/2020 2:56 PM T [facility] VLDL CALCULATION 22 5 - 55 MG/DL 04/02/2020 2:56 PM T [facility] LIPID INTERPRETATION 04/02/2020 2:56 PM T [facility] Comment: NIH CONCENSUS REPORT RECOMMENDATIONS: ADULT CHILD LOW RISK: CHOLESTEROL <200 <170 TRIGLYCERIDE <150 --- HDL >=60 --- LDL <100 <110 BORDERLINE: CHOLESTEROL 200-239 170-199 TRIGLYCERIDE 150-199 --- HDL 40-59 --- LDL 100-159 110-129 HIGH RISK: CHOLESTEROL >=240 >=200 TRIGLYCERIDE >=200 --- HDL <40 --- LDL >=160 >=130 04/02/2020 11:0 5 AM CDT Paulette Pedraza MD LABORATORY Final Result [facility] [address] [place] [address], * Colonoscopy (07/15/2015 12:00 AM CDT) 07/15/2015 07/15/2015 Narrative [facility] TO EPIC CONVERSION - 07/15/2015 12:00 AM CDT Documented hx of procedure Procedure Note Md Generic MD Liane - 08/18/2018 Documented hx of procedure Generic Conversion Md [facility] PROCEDURE ORDERABLES Final Result [facility] TO EPIC CONVERSION from Last 3 Months or Most Recently Relevant to Health Maintenance Insurance Advance Directives * Full Code (Latest Code Status on File) Date Activated Date Inactivated Comments 06/01/2020 4:15 PM * Full Code Date Activated Date Inactivated Comments 10/31/2019 12:30 AM 06/01/2020 4:18 PM * Full Code Date Activated Date Inactivated Comments 2019 11:10 AM 10/31/2019 12:32 AM Care Teams Dry Cell Assembly Supervisor Relationship Specialty Start Date End Date Lee Mendez MD INTERNAL MEDICINE 09/03/19
--- OUTSIDE RECORDS SUMMARY | 2024-12-06 00:38 | XMS_ITS | Encounter Summary ---
Author Organization [facility] Address [address] [place] [address] Care Team Providers Care Roustabout Crew Name Role Phone Paulette Pedraza MD Primary Care Provider [phone] New Referring, Provider Primary Care Provider Un available Paulette Pedraza MD Unavailable [phone] Lee Mendez MD Unavailable [phone] Paulette Pedraza MD Primary Care Provider + [phone] Encounter Details Date Type Department Care Team (Latest Contact Info) Description 06/27/2018 Abstract [facility] [place] [address] [place] [address] Social History Tobacco Use Types Packs/Day Years [...] on filedocumented in this encounter Care Teams Roustabout Crew Relationship Specialty Start Date End Date Paulette Pedraza MD PCP - General 11/28/16 09/01/19 New Referring, Provider PCP - General UNKNOWN PHYSICIAN SPECIALTY 09/02/19 02/09/20 Paulette Pedraza MD PCP - General INTERNAL MEDICINE 02/10/20 01/04/21 Paulette Pedraza MD 09/02/19 01/04/21 Lee Mendez MD INTERNAL MEDICINE 09/03/19 documented as of this encounter
--- OUTSIDE RECORDS SUMMARY | 2024-12-06 00:39 | XMS_ITS | Encounter Summary ---
Author Organization [facility] Address [address] [place] [address] Care Team Providers Care Tool Grinding Technician Name Role Phone Angel Guerra MD Primary Care Provider [phone] Reason for Visit * Reason Onset Date Comments Refill Request 09/26/2023 Encounter Details Date Type Department Care Team (Late st Contact Info) Description 09/26/2023 Telephone [facility] [address] [facility], [facility] [place] [address] Trisha Bray MD [address] [place] [address] Refill Request Social History Tobacco Use Types Packs/Day Years Used Date Smoking Tobacco: Every Day Cigarettes Smokeless Tobacco: Current Alcohol Use Standard Drinks/Week Comments No 0 (1 standard drink = 0.6 oz pur e alcohol) PHQ-2 Answer Date Recorded Patient Health Questionnaire-2 Score 0 09/26/2023 Sex and Gender Information Value Date Recorded Sex Assigned at Not on file Gender Identity Not on file Sexual Orientation Not on file documented as of this encounter Miscellaneous Notes * Telephone Encounter - Trisha Bray MD - 09/26/2023 4:40 PM CST Spoke with [facility]. Gave verbal order to renew gamunex C 50g [id number], and add 500cc NS bolus Trisha Bray MD Allergy & Immunology Fellow COORDINATOR documented in this encounter Plan of Treatment Upcoming Encounters Date Type Department Care Team (Late st Contact Info) Description 2025 3:00 PM HR COORDINATOR Office Visit [facility] [address] [place] [address], [place] [address] Lee Mendez MD [address] [place] [address] DIV OF ALLERGY/[place] [address] documented as of this encounter Visit Diagnoses Not on filedocumented in this encounter Care Teams Tool Grinding Technician Relationship Specialty Start Date End Date Angel Guerra MD [address] [place] [address] PCP - General 01/11/22 documented as of this encounter
--- OUTSIDE RECORDS SUMMARY | 2024-12-06 00:39 | XMS_ITS | Encounter Summary ---
Author Organization [facility] Address [address] [place] [address] Care Team Providers Care Oil Inspector Name Role Phone Paulette Pedraza MD Primary Care Provider + [phone] Angel Guerra MD Primary Care Provider + [phone] Encounter Details Date Type Department Care Team (Late st Contact Info) Description 08/05/[address] [facility] [address] [place] [address] Lee Mendez MD [facility] OF ALLERGY/[place] [address] Social History Tobacco Use Types Packs/Day Years Used Date Smoking Tobacco: Every Day Cigarettes Smokeless Tobacco: Current Alcohol Use Standard Drinks/Week Comments No 0 (1 standard drink = 0.6 oz pur e alcohol) PHQ-2 Answer Date Recorded PHQ2 TOTAL SCORE 0 07/27/2021 Sex and Gender Information Value Date Recorded Sex Assigned at Not on file Gender Identity Not on file Sexual Orientation Not on file documented as of this encounter Patient Instructions * Patient Instructions* Jessica Armijo - 08/05/2021 11:44 AM CDT Pt is calling to get her Gamunex re certified by Dr Mendez documented in this encounter Plan of Treatment Upcoming Encounters Date Type Department Care Team (Late st Contact Info) Description 2025 3:00 PM CONSUMER ANALYST Office Visit [facility] [address] [place] [address], [place] [address] Lee Mendez MD [address] [place] [address] [address] DIV OF ALLERGY/[place] [address] documented as of this encounter Visit Diagnoses Not on filedocumented in this encounter Care Teams Oil Inspector Relationship Specialty Start Date End Date Paulette ePdraza MD PCP - General 12/26/16 01/10/22 Angel Guerra MD [address] [place] [address] PCP - General 01/11/22 documented as of this encounter
--- OUTSIDE RECORDS SUMMARY | 2024-12-06 00:39 | XMS_ITS | Encounter Summary ---
Author Organization [facility] Address [address] [facility] [place] [address] Care Team Providers Care Wash Oil Pump Operator Name Role Phone Paulette Pedraza MD Primary Care Provider + [phone] Angel Guerra MD Primary Care Provider + [phone] Encounter Details Date Type Department Care Team (Late st Contact Info) Description 07/27/2021 Telephone [facility] [address] [place] [address] Lee Mendez MD [facility] OF [place]ERGY[place] [address] Social History Tobacco Use Types Packs/Day Years [...] this encounter Patient Instructions * Patient Instructions* Mervat Good - 07/27/2021 12:01 PM CDT Please call patient today for her telephone appt. At [phone]. Thank you documented in this encounter Plan of Treatment Upcoming Encounters Date Type Department Care Team (Late st Contact Info) Description 2025 3:00 PM SUPERVISOR COMMISSARY PRODUCTION Office Visit [facility] [address] [place] [address], [place] [address] Lee Mendez MD [address] [place] [address] [address] DIV OF ALLERGY/[place] [address] documented as of this encounter Visit Diagnoses Not on filedocumented in this encounter Care Teams Wash Oil Pump Operator Relationship Specialty Start Date End Date Paulette Pedraza MD PCP - General 12/26/16 01/10/22 Angel Guerra MD [address] [place] [address] PCP - General 01/11/22 documented as of this encounter
--- OUTSIDE RECORDS SUMMARY | 2024-12-06 00:39 | XMS_ITS | Encounter Summary ---
Author Organization [facility] Address [address] [place] [address] Care Team Providers Care Sales Program Coordinator Name Role Phone Paulette Pedraza MD Primary Care Provider + [phone] Angel Guerra MD Primary Care Provider + [phone] Encounter Details Date Type Department Care Team (Late st Contact Info) Description 06/15/2020 Telephone [facility] [address] [place] [address] Lee Mendez MD [address] OF ALLERGY/[place] [address] Social History Tobacco Use Types Packs/Day Years Used Date Smoking Tobacco: Every Day Cigarettes Smokeless Tobacco: Current Alcohol Use Standard Drinks/Week Comments No 0 (1 standard drink = 0.6 oz pur e alcohol) Sex and Gender Information Value Date Recorded Sex Assigned at Not on file Gender Identity Not on file Sexual Orientation Not on file documented as of this encounter Miscellaneous Notes * Telephone Encounter - Grayson, Galina - 06/15/2020 3:21 PM CDT Current Provider name: Dr. Lee Mendez Reason for call: Ms. Alma Anderson's 06/16/2020 appt was BMPD. She called back in to reschedule and your first available was 07/07/2020. She needs to do a telephone appt. She doesn't have VID capability. However, we can not do Phone or VID appts with Osvaldo beyond July 03, 2020 per GUIDELINES. She needs to do her FU for her infusions for her immune deficiency. Can she be worked in as a telephone prior to July 03, 2020? Her other challenge is transportation. She can't make the late appts because transportation stops at a certain time. Worse case, she will see if someone can bring her in. But any Telemedicine will have to be done prior to July 03, 2020 Please call. Thanks. Fernie Call Back number: [phone] documented in this encounter Plan of Treatment Upcoming Encounters Date Type Department Care Team (Late st Contact Info) Description 2025 3:00 PM NETWORKING SPECIALIST Office Visit [facility] [address] [place] [address], [place] [address] Lee Mendez MD [address] [place] [address] DIV OF ALLERGY/[place] [address] documented as of this encounter Visit Diagnoses Not on filedocumented in this encounter Care Teams Sales Program Coordinator Relationship Specialty Start Date End Date Paulette Pedraza MD PCP - General 12/26/16 01/10/22 Angel Guerra MD [address] [place] [address] PCP - General 01/11/22 documented as of this encounter
--- OUTSIDE RECORDS SUMMARY | 2024-12-06 00:39 | XMS_ITS | Encounter Summary ---
Author Organization [facility] Address [address] [place] [address] Care Team Providers Care Triage Rn Name Role Phone Angel Guerra MD Primary Care Provider [phone] Reason for Visit * Reason Onset Date Comments Results 10/01/2023 Encounter Details Date Type Department Care Team (Late st Contact Info) Description 10/01/2023 Telephone [facility] [address] [facility], [place] [address] Trisha Bray MD [address] [place] [address] Results Social History Tobacco Use Types Packs/Day Years [...] Telephone Encounter - Trisha Bray MD - 10/01/2023 3:25 PM CST Lab review 0 Result Notes Component Ref Range & Units 5 d ago (09/26/23) 6 yr ago (02/23/17) 6 yr ago (02/23/17) 6 yr ago (02/07/17) IgG 767 - 1,590 mg/dL 804 446??Low?? R, CM IgM 37 - 286 mg/dL 72 53 R, CM IgA 61 - 356 mg/dL 302 272 R, CM Resulting Agency [facility] Parameters Male Ref. Range Female Ref. Range 09/26/23 WBC [id number] 2600-52653 8200 Lymphocytes % 21-48 18-54 19 Lymphocytes 3099-9077 5889-8124 1558 CD3+ % 75-80 76-78 65 CD3 8429-7505 2817-6409 1013 CD3+CD4+ % (CD4 T cells) 34-61 26-62 38 CD3+CD4+ 564-3452 803-2792 592 CD3+CD8+ % (CD8 T cells) 16-38 14-44 27 CD3+CD8+ 314-628 541-8455 421 CD4:CD8 Ratio 0.97-3.71 0.6-4.4 1.41 CD19 % (Total B cells) 4-9 5-26 11 CD19 64-452 66-800 171 CD56 % (NK cells) 2-27 2-19 13 CD56 27-483 43-693 203 CD4 & CD45RO % (Memory T cells) 34-79 34-79 59 CD4 & CD45RO 518-2300 518-2300 349 CD4 & CD45RA % (Na ve T cells) 0.23-53 0.23-53 41 CD4 & CD45RA 4-1424 4-1424 243 CD19 & CD27 % (Total Memory B cells) 4-9 5-26 9 CD19 & CD27 64-452 66-800 105 CD19 & CD27 + IgD+ % (Non-switch Memory B cells) 2-25 2-25 33 CD19 & CD27 + IgD+ - 4- 57 CD19 & CD27 + IgD- % (Class-switch Memory B cells) 3- 3-23 33 CD19 & CD27 + IgD- 4- 57 CD19 & CD27 - IgD+ % (Na ve B cells) 29- 77 CD19 & CD27 - IgD+ 33423 33-423 132 References: Fabian Cody, Idris Hitchcock, Pura Adams, Pura Daigle, Harry Quinn, & Ev Watts (2014). Reference ranges of lymphocyte subsets in healthy adults and adolescents with special mention of T cell maturation subsets in adults of [facility]. Immunobiology, 219(7), 487-496. Matheus Randle, Matheus Ceja, Pura Bass, Idris Hidalgo, Edi Ng, & Edi Peck (2010). B cell subsets in healthy children: reference values for evaluation of B cell maturation process in peripheral blood. Cytometry Part B: Clinical Cytometry, 78(6), 372-381. CMP wnl Assessment: Normal immunoglobulin A, G and M levels. Normal T and B cell lymphocyte panel Trisha Bray MD Allergy & Immunology Fellow HANDISE COLLECTOR documented in this encounter Plan of Treatment Upcoming Encounters Date Type Department Care Team (Late st Contact Info) Description 2025 3:00 PM MERCHANDISE COLLECTOR Office Visit [facility] [address] [place] [address], [place] [address] Lee Mendez MD [address] [place] [address] DIV OF ALLERGY/[place] [address] documented as of this encounter Visit Diagnoses Not on filedocumented in this encounter Care Teams Triage Rn Relationship Specialty Start Date End Date Angel Guerra MD [address] [place] [address] PCP - General 01/11/22 documented as of this encounter
--- OUTSIDE RECORDS SUMMARY | 2024-12-06 00:39 | XMS_ITS | Encounter Summary ---
Author Organization [facility] Address [address] [facility] [place] [address] Care Team Providers Care Lead Shipper Name Role Phone Paulette Pedraza MD Primary Care Provider + [phone] Angel Guerra MD Primary Care Provider + [phone] Encounter Details Date Type Department Care Team (Late st Contact Info) Description 08/09/2021 Telephone [facility] [address] [place] [address] Lee Mendez MD [facility] OF ALLERGY[place] [address] Social History Tobacco Use Types Packs/Day Years [...] this encounter Patient Instructions * Patient Instructions* Lore Amezquita - 08/09/2021 1:14 PM CDT Patient called and would like to talk to Dr. Mendez's nurse in regards to her medication needing to be certified. Contact number is [phone]. documented in this encounter Plan of Treatment Upcoming Encounters Date Type Department Care Team (Late st Contact Info) Description 2025 3:00 PM CUFF SETTER OVERLOCK Office Visit [facility] [address] [place] [address], [place] [address] Lee Mendez MD [address] [place] [address] DIV OF ALLERGY/[place] [address] documented as of this encounter Visit Diagnoses Not on filedocumented in this encounter Care Teams Lead Shipper Relationship Specialty Start Date End Date Paulette Pedraza MD PCP - General 12/26/16 01/10/22 Angel Guerra MD [address] [place] [address] PCP - General 01/11/22 documented as of this encounter
--- OUTSIDE RECORDS SUMMARY | 2024-12-06 00:39 | XMS_ITS | Encounter Summary ---
Author Organization [facility] Address [address] [facility] [place] [address] Care Team Providers Care Ship Ceiler Name Role Phone Paulette Pedraza MD Primary Care Provider + [phone] Angel Guerra MD Primary Care Provider + [phone] Reason for Visit * Reason Onset Date Comments Refill Request 07/25/2018 Encounter Details Date Type Department Care Team (Late Contact Info) Description 07/25/2018 Telephone [facility] [address] [place] [address] Js Khna DO [address] [place] [address] Refill Request Social History Tobacco Use Types [...] encounter Miscellaneous Notes * Telephone Encounter - Js Khan DO - 07/25/2018 11:11 AM CDT Received home certification request from [facility]. documented in this encounter Plan of Treatment Upcoming Encounters Date Type Department Care Team (Late Contact Info) Description 2025 3:00 PM LEAD FABRICATOR Office Visit [facility] [address] [place] [address], [place] [address] Lee Mendez MD [address] [place] [address] DIV [place]ERGY/[place] [address] documented as of this encounter Visit Diagnoses Not on filedocumented in this encounter Care Teams Ship Ceiler Relationship Specialty Start Date End Date Paulette Pedraza MD PCP - General 12/26/16 01/10/22 Angel Guerra MD [address] [place] [address] PCP - General 01/11/22 documented as of this encounter
--- OUTSIDE RECORDS SUMMARY | 2024-12-06 00:39 | XMS_ITS | Encounter Summary ---
Author Organization [facility] Address [address] [facility] [place] [address] Care Team Providers Care Computer Technical Specialist Name Role Phone Paulette Pedraza MD Primary Care Provider + [phone] Angel Guerra MD Primary Care Provider + [phone] Reason for Visit * Reason Onset Date Comments Results 01/15/2019 Encounter Details Date Type Department Care Team (Late st Contact Info) Description 01/15/2019 Telephone [facility] [address] [place] [address] Js Dubon DO [address] [place] [address] Results Social History Tobacco Use Types Packs/Day [...] Miscellaneous Notes * Telephone Encounter - Js Dubon DO - 01/15/2019 5:07 PM CDT Received lab results from [facility]. 01/06/2019 IgG 642, Creatine 0.62, eGFR > 90, BUN 12 Patient currently receives Gamunex-C 40 grams every 4 weeks (473mg/kg). Discussed with Dr. Mendez. Previous IgG 1447 from outside lab likely not a trough IgG. Given pneumonia with trough IgG of 642 on Gamunex-C 40 grams, will increase to 50 grams every 4 weeks 592 (mg/kg) Signed Prescriptions Disp Refills ??? immune globulin, human, (GAMUNEX-C) infusion 500 mL 11 Si g by Intravenous route every 28 days Authorizing Provider: JS DUBON Prescription left in AI RN's basket. Will also have staff notify patient of dose increase. Js Dubon DO 01/15/2019 5:56 PM documented in this encounter Plan of Treatment Upcoming Encounters Date Type Department Care Team (Late st Contact Info) Description 2025 3:00 PM RAKER BUFFING WHEEL Office Visit [facility] [address] [place] [address], [place] [address] Lee Mendez MD [address] [place] [address] OF ALLERGY[place] [address] documented as of this encounter Visit Diagnoses Diagnosis Hypogammaglobulinemia (HCC)- Primary Hypogammaglobulinaemia, unspecified documented in this encounter Care Teams Computer Technical Specialist Relationship Specialty Start Date End Date Paulette Pedraza MD PCP - General 12/26/16 01/10/22 Angel Guerra MD [address] [place] [address] PCP - General 01/11/22 documented as of this encounter
--- OUTSIDE RECORDS SUMMARY | 2024-12-06 00:39 | XMS_ITS | Data Portability ---
Author Organization [place] - [facility] OFFICE Address [address] [place] [id number] Care Team Providers Care Rn Float Name Role Phone BROOKLYN FIGUEROA Primary Care Provider Assessment No assessment recorded. Plan of Treatment Reminders Order Date Submit Date Provider Last Modified By Organization Details Last Modified Time Details Appointments None recorded. Lab None recorded. Referral None recorded. Procedures None recorded. Surgeries None recorded. Imaging electrocar diogram 2017 018 [email or web address] Not available 9 17:12:22 Medication Orders furosemide 40 mg tablet 2017 018 [email or web address] [facility] #[id number], [address], [place], [id number], 0 12:38:49 potassium chloride ER 10 mEq tablet,ext ended release 2017 018 INTERFACE [facility] #[id number], [address], [place], [id number], 8 17:58:14 nitroglyce rin 0.4 mg sublingual tablet 2017 018 [email or web address] Not available 8 10:50:12 metoprolol tartrate 50 mg tablet 2017 018 INTERFACE [facility] #[id number], [address], [place], [id number], 8 17:57:45 atorvastat in 40 mg tablet 2017 018 INTERFACE [facility] #[id number], [address] [facility], [place], [place], [id number], 17:55:31 fenofibrat e 160 mg tablet 2017 INTERFACE [facility] #[id number], [address] [facility], [place], [place], [id number], 17:57:46 Patient TargetsNo targets recorded. Patient Instructions Encounter Date Encounter Id Patient Instructions Last Modified By Organization Details Last Modified Time 06/11/2018 [id number] sleep apnea: car e instructions [email or web address] Not available 06/11/2018 17:55:27 learning about low-fat eating [email or web address] Not available 06/11/2018 17:55:27 Scribed by Ronel Su HABITAT BIOLOGIST-C lsenci Not available 06/11/2018 17:59:45 05/04/2020 [id number] sleep apnea: car e instructions [email or web address] Not available 05/04/2020 13:28:27 learning about low-fat eating [email or web address] Not available 05/04/2020 13:28:27 05/04/2020 Advise d to go to the ER from the office. Pt. verbalized understanding and states she will go to [facility] from the office. Pt took her own transportation to the ER. Weight loss, Exercise advised Education on smoking. Reports a decrease in use to 4-5 per day from 1ppd. Low cholesterol diet advised Low sodium diet advised. Not available 05/04/2020 13:26:21 Scribed by Nicci Bernard, MSN, LEATHER PRODUCTION MACHINE OPERATOR, HABITAT BIOLOGIST-C [email or web address] Not available 05/04/2020 12:48:14 04/04/2021 [id number] sleep apnea: car e instructions [email or web address] Not available 04/04/2021 21:37:57 learning about low-fat eating [email or web address] Not available 04/04/2021 21:37:57 Exercise advised Low cholesterol diet advised Low sodium diet advised [email or web address] Not available 04/04/2021 21:37:07 Scribed by Bhavik Galloway HABITAT BIOLOGIST-BC [email or web address] Not available 04/04/2021 21:37:20 10/18/2021 [id number] sleep apnea: car e instructions [email or web address] Not available 10/18/2021 16:10:56 learning about low-fat eating [email or web address] Not available 10/18/2021 16:10:56 Exercise advised Low cholesterol diet advised Low sodium diet advised. [email or web address] Not available 10/18/2021 16:11:04 12/21/2022 [id number] Exercise advised Low cholesterol diet advised Low sodium diet advised. [email or web address] Not available 12/21/2022 17:53:19 Reason for Referral None Reported. Results Created Date Observation Date Name Description Value Unit Range Abnormal Flag Note LastModifiedBy Organization Detail LastModifiedTime 05/05/20 20 05/04/2020 elect rocar diogr am No observ ation record ed. [email or web address] Not Available 2019 14:19:37 04/06/20 21 04/04/2021 elect rocar diogr am No observ ation record ed. [email or web address] Not Available 2020 13:26:14 10/20/19 22 10/18/2021 elect rocar diogr am No observ ation record ed. [email or web address] Not Available 2021 12:17:16 12/28/19 23 12/21/2022 elect rocar diogr am No observ ation record ed. [email or web address] Not Available 2022 15:28:35 01/31/20 23 01/29/2023 elect rocar diogr am No observ ation record ed. [email or web address] Not Available 2022 14:53:07 Result Notes None recorded. Problems Name Problem SNOMED Code Status Onset Date Resolution Date Notes Provider Name and Address Organization Details Recorded Time Hyperlipid emia [id number] Active 2016 [place] [facility] 4 06:55:10 Edema of lower extremity 245298505 Active 2016 [place] [facility] 7 15:09:10 Palpitatio ns 93929321 Active 2015 [place] [facility] 6 01:56:30 Benign hypertensi on 57008845 Active 2015 [place] - [facility] 4 06:54:58 Disorder of coronary artery 443171039 Active 2015 [place] - [facility] 6 01:57:10 Diabetes mellitus 00336737 Active 2015 Insulin dependent [place] - [facility] 4 06:55:06 Moderate chronic obstructiv e pulmonary disease 765638997 Active 2015 [place] [facility] 6 01:58:18 Asthma 289715478 Active 2015 [place] [facility] 4 06:55:01 Bronchitis 13149357 Active 2015 [place] [facility] 6 01:58:37 Pneumonia 175212609 Active 2015 [place] [facility] 6 01:58:49 Obstructiv e sleep apnea syndrome 16914893 Active 2015 [place] [facility] 4 06:55:17 Hypothyroi dism 75049088 Active 2015 [place] [facility] 4 06:55:12 Cerebrovas cular accident 665709124 Active 2015 [place] [facility] 6 01:59:26 History of depression 906396186 Active 2015 [place] [facility] 6 01:59:37 Gastroesop hageal reflux disease 325943138 Active 2015 [place] [facility] 6 01:59:48 Degenerati on of interverte bral disc 48322189 Active 2015 [place] [facility] 6 02:00:46 Anxiety 60662433 Active 2015 [place] [facility] 6 02:00:57 Problem Notes None recorded. Procedures Surgical History None recorded. Imaging Results Imaging Date Name Status LastModified by Organization Details LastModified Time 05/04/2020 electrocardiogram completed [email or web address] Informa tion not available 05/05/2020 14:19:37 04/04/2021 electrocardiogram completed Informa tion not available 04/06/2021 13:26:14 10/18/2021 electrocardiogram completed Informa tion not available 10/20/2021 12:17:16 12/21/2022 electrocardiogram completed Informa tion not available 12/27/2022 15:28:35 01/29/2023 electrocardiogram completed Informa tion not available 03/30/2023 14:53:07 Procedure Notes None recorded. Medical Equipment None Reported. Allergies Allergen ID Allergen Name Allergen Category Reaction Reaction Severity Criticality Documentation Date Start Date Code Code System Note Provider Name and Address Organization Details Recorded Time 851 Substance with sulfonami de structure and antibacte rial mechanism of action (substanc e) medicatio n Not available Not available Not available 02/10/2016 [id number] SNOMED Statu s- Activ e Type- Drug Intol eranc e Xu Gao [facility], [place] - [facility] 6 02:12:55 Medications Name Sig Start Date Stop Date Status Note LastModified by Organization Details LastModified Time cyclobenza gianna 10 mg tablet 11/21 completed Not Available Not Available Not Available amoxicilli n 500 mg capsule 02/17 completed Not Available Not Available Not Available furosemide 40 mg tablet TAKE 1 TABLET BY MOUTH TWICE DAILY NEEDED active Not Available Not Available No t Available pioglitazo ne 15 mg tablet 04/04 completed Not Available Not Available Not Available fluconazol e 100 mg tablet 11/17 completed Not Available Not Available Not Available atorvastat in 40 mg tablet TAKE 1 TABLET BY MOUTH EVERY DAY AT BEDTIME 2023 active Not Available Not Available Not Avai lable methocarba mol 500 mg tablet active Not Available Not Available Not Available theophylli ne 300 mg tablet bid 02/06 completed Not Available Not Available Not Available metformin 500 mg tablet active pt is no longer taking sa 10/18/21 Not Available Not Available Not Available nystatin 100,000 unit/mL oral suspension SWISH AND SWALLOW 4 ML BY MOUTH FOUR TIMES DAILY FOR 14 DAYS active Not Available Not Available No t Available venlafaxin e ER 37.5 mg capsule,ex tended release 24 hr 04/04 completed Not Available Not Available Not Available prednisone 10 mg tablet TAKE 4 TABLETS BY MOUTH DAILY FOR 5 DAYS active Not Available Not Available No t Available venlafaxin e ER 75 mg capsule,ex tended release 24 hr 1 tab qd active Not Available Not Available Not Available doxycyclin e hyclate 100 mg capsule TAKE 1 CAPSULE BY MOUTH TWICE DAILY FOR 10 DAYS 04/04 completed Not Available Not Available Not Available nicotine 14 mg/24 hr daily transderma l patch APPLY 1 PATCH TRANSDER MIGUEL EVERY DAY active Not Available Not Available No t Available ipratropiu m 0.5 mg-albuter ol 3 mg (2.5 mg base)/3 mL nebulizati on soln USE 1 VIAL VIA NEBULIZE R FOUR TIMES DAILY FOR SHORTNES S OF BREATH active Not Available Not Available No t Available clindamyci n HCl 300 mg capsule 1 tab q6h 02/06 completed Not Available Not Available Not Available albuterol sulfate 2.5 mg/3 mL (0.083 %) solution for nebulizati on USE 1 VIAL VIA NEBULIZE R FOUR TIMES DAILY NEEDED FOR SHORTNES S OF BREATH OR WHEEZING active Not Available Not Available No t Available cefaclor 500 mg capsule 05/21 completed Not Available Not Available Not Available trazodone 50 mg tablet TAKE 1 TABLET BY MOUTH EVERY DAY AT BEDTIME 09/13 completed pt is no longer taking 10/18/21 Not Available Not Available Not Available polyethyle ne glycol 3350 17 gram oral powder packet MIX ONE PACKET IN LIQUID AND DRINK ONCE EVERY MORNING NEEDED FOR CONSTIPA TION active Not Available Not Available No t Available cetirizine 10 mg tablet TAKE 1 TABLET BY MOUTH ONCE A DAY active Not Available Not Available No t Available azithromyc in 250 mg tablet FOLLOW PACKAGE DIRECTIO NS active Not Available Not Available No t Available ibuprofen 800 mg tablet TAKE 1 TABLET BY MOUTH EVERY 8 HOURS NEEDED FOR PAIN active Not Available Not Available No t Available alprazolam 1 mg tablet 1 tab prn active pt is no longer taking 10/18/21 Not Available Not Available Not Available ofloxacin 0.3 % eye drops 04/25 completed Not Available Not Available Not Available fluconazol e 150 mg tablet TAKE 1 TABLET BY MOUTH EVERY 72 HOURS active Not Available Not Available No t Available metoprolol succinate ER 50 mg tablet,ext ended release 24 hr 02/17 completed Not Available Not Available Not Available citalopram 10 mg tablet TAKE 1 TABLET BY MOUTH EVERY DAY WITH 20 MG 08/06 completed Not Available Not Available Not Available Ativan 1 mg tablet Take 1 tablet every day by oral route at bedtime. 02/06 completed Not Available Not Available Not Available minocyclin e 100 mg capsule 02/06 completed Not Available Not Available Not Available glipizide ER 10 mg tablet, extended release 24 hr TAKE 1 TABLET BY MOUTH EVERY DAY active Not Available Not Available No t Available promethazi ne 12.5 mg tablet 02/17 completed Not Available Not Available Not Available ondansetro n HCl 4 mg tablet TAKE 1 TABLET BY MOUTH EVERY 6 HOURS NEEDED FOR NAUSEA OR VOMITING active Not Available Not Available No t Available glipizide 10 mg tablet TAKE 1 TABLET BY MOUTH EVERY MORNING active Not Available Not Available No t Available famotidine 40 mg tablet TAKE 1 TABLET BY MOUTH EVERY DAY active Not Available Not Available No t Available prednisone 20 mg tablet TAKE 2 TABLETS BY MOUTH DAILY FOR 4 DAYS active Not Available Not Available No t Available gabapentin 400 mg capsule TAKE 1 CAPSULE BY MOUTH THREE TIMES DAILY active Not Available Not Available No t Available sertraline 100 mg tablet 1 tab bid active Not Available Not Available No t Available prednisone 5 mg tablet 11/21 completed Not Available Not Available Not Available potassium chloride ER 10 mEq tablet,ext ended release TAKE 1 TABLET BY MOUTH TWICE DAILY active Not Available Not Available No t Available ciprofloxa jordan 500 mg tablet 05/04 completed Not Available Not Available Not Available sulfametho xazole 800 mg-trimeth oprim 160 mg tablet 02/06 completed Not Available Not Available Not Available omeprazole 40 mg capsule,de layed release Take 1 capsule every day by oral route. 02/06 completed Not Available Not Available Not Available ondansetro n 8 mg disintegra ting tablet DISSOLVE 1 TABLET ON THE TONGUE TWICE DAILY active Not Available Not Available No t Available theophylli ne ER 300 mg tablet,ext ended release,12 hr 1 tab bid active Not Available Not Available No t Available pantoprazo le 20 mg tablet,del ayed release TAKE 1 TABLET BY MOUTH EVERY DAY 08/05 completed Not Available Not Available Not Available ketorolac 0.5 % eye drops active Not Available Not Available Not Available prednisone 10 mg tablets in a dose pack active Not Available Not Available Not Available meloxicam 7.5 mg tablet 1 tab qd 02/06 completed Not Available Not Available Not Available oxycodone- acetaminop hen 5 mg-325 mg tablet TAKE 1 TABLET BY MOUTH EVERY 6 HOURS NEEDED FOR PAIN active Not Available Not Available No t Available alprazolam 0.5 mg tablet 04/04 completed Not Available Not Available Not Available K-Dur 20 mEq tablet,ext ended release Take 1 tablet every day by oral route. 11/21 completed Not Available Not Available Not Available amoxicilli n 875 mg tablet TAKE 1 TABLET BY MOUTH TWICE DAILY active Not Available Not Available No t Available Aspirin Low Strength 81 mg chewable tablet Chew 1 tablet every day by oral route. 09/13 completed Not Available Not Available Not Available citalopram 20 mg tablet TAKE 1 TABLET BY MOUTH DAILY active Not Available Not Available No t Available famotidine 20 mg tablet 04/04 completed Not Available Not Available Not Available prednisolo ne acetate 1 % eye drops,susp ension active Not Available Not Available Not Available estradiol 1 mg tablet 1 tab qd 08/06 completed pt is no longe taking 12/21/22 SA Not Available Not Available Not Available oxycodone- acetaminop hen 10 mg-325 mg tablet TAKE 1 TABLET BY MOUTH FOUR TIMES DAILY FOR 30 DAYS active Not Available Not Available No t Available trazodone 100 mg tablet TAKE 1 TABLET BY MOUTH AT BEDTIME active Not Available Not Available No t Available ropinirole 0.25 mg tablet 05/21 completed Not Available Not Available Not Available dicyclomin e 20 mg tablet prn 02/06 completed Not Available Not Available Not Available doxycyclin e monohydrat e 100 mg capsule 05/04 completed Not Available Not Available Not Available levothyrox ine 50 mcg tablet TAKE 1 TABLET BY MOUTH DAILY active Not Available Not Available No t Available cephalexin 500 mg capsule TAKE 1 CAPSULE BY MOUTH EVERY 6 HOURS FOR 7 DAYS active Not Available Not Available No t Available pantoprazo le 40 mg tablet,del ayed release TAKE 1 TABLET BY MOUTH EVERY DAY active Not Available Not Available No t Available simvastati n 20 mg tablet TAKE 1 TABLET BY MOUTH EVERY DAY AT DINNER 06/11 completed Not Available Not Available Not Available fluoxetine 20 mg tablet TAKE 1 TABLET BY MOUTH EVERY DAY active Not Available Not Available No t Available ropinirole 0.5 mg tablet TAKE 1 TABLET BY MOUTH THREE TIMES DAILY active Not Available Not Available No t Available nystatin 100,000 unit/gram topical cream active Not Available Not Available Not Available hyoscyamin e 0.125 mg sublingual tablet 11/21 completed Not Available Not Available Not Available Humulin N NPH U-100 Insulin (isophane susp) 100 unit/mL subcutaneo us slide scale active Not Available Not Available No t Available metoprolol tartrate 50 mg tablet TAKE 1 TABLET BY MOUTH TWICE DAILY 2023 active Not Available Not Available Not Avai lable nicotine 21 mg/24 hr daily transderma l patch APPLY 1 PATCH TRANSDER MIGUEL DAILY active Not Available Not Available No t Available nitroglyce rin 0.[address] ONE TABLET UNDER TONGUE NEEDED FOR CHEST PAIN EVERY 5 MINUTES, NO MORE THAN 3 DOSES DIRECTED 2019 active PRN Not Available Not Available Not Avai lable docusate sodium 100 mg capsule active Not Available Not Available N ot Available gabapentin 300 mg capsule TAKE 1 CAPSULE BY MOUTH TWICE DAILY active pt is no longe taking 12/21/22 SA Not Available Not Available Not Available omeprazole 20 mg capsule,de layed release TK 1 T PO D FOR GERD active Not Available Not Available No t Available estradiol 2 mg tablet Take 1 tablet every day by oral route. 06/11 completed Not Available Not Available Not Available diclofenac sodium 75 mg tablet,del ayed release 06/11 completed Not Available Not Available Not Available pseudoephe drine 30 mg tablet TAKE 2 TABLETS BY MOUTH THREE TIMES DAILY NEEDED active Not Available Not Available No t Available insulin syringe U-100 with needle 1 mL 31 gauge x / active Not Available Not Available Not Available montelukas t 10 mg tablet TAKE 1 TABLET BY MOUTH DAILY active Not Available Not Available No t Available codeine 10 mg-guaifen esin 100 mg/5 mL oral liquid TAKE 10 ML BY MOUTH EVERY 4 HOURS. MAXI OF 6 DOSES PER DAY/24 HOURS active Not Available Not Available No t Available acyclovir 200 mg capsule 05/04 completed Not Available Not Available Not Available diclofenac sodium 50 mg tablet,del ayed release TAKE 1 TABLET BY MOUTH EVERY 12 HOURS WITH FOOD active Not Available Not Available No t Available zolpidem 5 mg tablet TAKE 1 TABLET BY MOUTH EVERY NIGHT AT BEDTIME 04/04 completed Not Available Not Available Not Available gabapentin 100 mg capsule TAKE 2 CAPSULES BY MOUTH AT BEDTIME active pt is no longe taking 12/21/22 SA Not Available Not Available Not Available estradiol 0.5 mg tablet TAKE 1 TABLET BY MOUTH EVERY DAY active Not Available Not Available No t Available azelastine 137 mcg (0.1 %) nasal spray USE 2 SPRAYS IN EACH NOSTRIL TWICE DAILY active Not Available Not Available No t Available insulin lispro (U-100) 100 unit/mL subcutaneo us solution ADMINIST ER 4 TO 10 UNITS UNDER THE SKIN THREE TIMES DAILY BEFORE MEALS PER SLIDING SCALE active Not Available Not Available No t Available diazepam 10 mg tablet TAKE 1 TABLET BY MOUTH ONCE A DAY BEFORE INJECTIO N active pt is no longe taking 12/21/22 Not Available Not Available Not Available cefuroxime axetil 500 mg tablet 11/21 completed Not Available Not Available Not Available polyethyle ne glycol 3350 17 gram/dose oral powder 06/11 completed Not Available Not Available Not Available levofloxac in 500 mg tablet active pt is no longe taking Not Available Not Available Not Available oxycodone- acetaminop hen 7.5 mg-325 mg tablet TAKE 1 TABLET BY MOUTH EVERY 6 HOURS NEEDED active Not Available Not Available No t Available zolpidem 10 mg tablet TAKE 1 TABLET BY MOUTH EVERY DAY AT BEDTIME active Not Available Not Available No t Available methylpred nisolone 4 mg tablets in a dose pack active Not Available Not Available Not Available albuterol sulfate HFA 90 mcg/actuat ion aerosol inhaler INHALE 2 PUFFS BY MOUTH EVERY 4 HOURS NEEDED active Not Available Not Available No t Available pioglitazo ne 30 mg tablet TAKE 1 TABLET BY MOUTH EVERY DAY active Not Available Not Available No t Available hydromorph one 4 mg tablet 11/21 completed Not Available Not Available Not Available ondansetro n 4 mg disintegra ting tablet DISSOLVE 1 TABLET ON THE TONGUE EVERY 6 HOURS NEEDED FOR NAUSEA OR VOMITING active Not Available Not Available No t Available cefdinir 300 mg capsule TAKE 1 CAPSULE BY MOUTH EVERY 12 HOURS active pt is no longe taking 12/21/22 Not Available Not Available Not Available fluoxetine 20 mg capsule Take 1 capsule every day by oral route. 07/08 completed Not Available Not Available Not Available fluticason e propionate 50 mcg/actuat ion nasal spray,susp ension SHAKE LIQUID AND USE 2 SPRAYS IN EACH NOSTRIL EVERY DAY active Not Available Not Available No t Available sertraline 50 mg tablet qd 04/04 completed Not Available Not Available Not Available doxycyclin e hyclate 100 mg tablet TAKE 1 TABLET BY MOUTH TWICE DAILY FOR 5 DAYS 08/06 completed Not Available Not Available Not Available ipratropiu m bromide 21 mcg (0.03 %) nasal spray active Not Available Not Available Not Available glipizide 5 mg tablet TAKE 1 TABLET BY MOUTH EVERY DAY active Not Available Not Available No t Available ipratropiu m bromide 0.02 % solution for inhalation 11/21 completed Not Available Not Available Not Available spironolac tone 50 mg tablet TAKE 1 TABLET BY MOUTH EVERY MORNING active Not Available Not Available No t Available metoclopra mide 10 mg tablet active Not Available Not Available Not Available amoxicilli n 875 mg-potassi um clavulanat e 125 mg tablet TAKE 1 TABLET BY MOUTH TWICE DAILY FOR 5 DAYS 08/05 completed pt is no longer taking 12/21/22 Not Available Not Available Not Available ceftriaxon e 2 gram solution for injection 2 gm qd 02/06 completed Not Available Not Available Not Available amoxicilli n 500 mg-potassi um clavulanat e 125 mg tablet TAKE 1 TABLET BY MOUTH TWICE DAILY 03/08 completed Not Available Not Available Not Available nicotine 7 mg/24 hr daily transderma l patch APPLY 1 PATCH TO THE SKIN DAILY active Not Available Not Available No t Available Meclizine Hcl Chewable 25 mg tablet prn 02/06 completed Not Available Not Available Not Available Humalog U-100 Insulin 100 unit/mL subcutaneo us cartridge Inject 15 units 4 times a day by subcutan eous route as directed . 05/21 completed Not Available Not Available Not Available azithromyc in 500 mg tablet 11/17 completed Not Available Not Available Not Available escitalopr am 20 mg tablet 1 tab qd 02/06 completed Not Available Not Available Not Available Spiriva with HandiHaler 18 mcg and inhalation capsules INHALE THE CONTENTS OF 1 CAPSULE VIA INHALATI ON DEVICE EVERY DAY active Not Available Not Available No t Available duloxetine 30 mg capsule,de layed release 05/21 completed Not Available Not Available Not Available BD Ultra-Fine Mini Pen Needle 31 gauge x 12/28 active Not Available Not Available Not Available Atrovent HFA 17 mcg/actuat ion aerosol inhaler INHALE 1 TO 2 PUFFS BY MOUTH TWICE DAILY NEEDED FOR SHORTNES S OF BREATH OR WHEEZING active Not Available Not Available No t Available fenofibrat e 160 mg tablet TAKE 1 TABLET BY MOUTH EVERY DAY active Not Available Not Available No t Available oxycodone 10-325 mg every 4 hours 02/06 completed Not Available Not Available Not Available levothyrox ine 50 mcg 1 each once a day 05/21 completed Not Available Not Available Not Available metoprolol tartrate 50 mg 0.5 Tablet bid 12/29 completed Not Available Not Available Not Available simvastati n Pt unsure of dose 07/19 completed Not Available Not Available Not Available Sudafed 11/21 completed Not Available Not Available Not Available Klor-Con 10 1 tab bid 12/17 completed Not Available Not Available Not Available Lotrimin bid 02/06 completed Not Available Not Available Not Available 1 tab qd 05/21 completed Not Available Not Available Not Available Humalog U-100 Insulin 20-30 U sliding scale 05/21 completed Not Available Not Available Not Available Hair,Skin and Nails 2 gummys qd 05/21 completed Not Available Not Available Not Available Apidra U-100 Insulin 100 unit/mL subcutaneo us solution 20-30 units qid active pt is no longer taking sa 10/18/21 Not Available Not Available Not Available ProAir HFA prn 02/06 completed Not Available Not Available Not Available Januvia 100 mg tablet TAKE 1 TABLET BY MOUTH EVERY MORNING active Not Available Not Available No t Available Symbicort 160 mcg-4.5 mcg/actuat ion HFA aerosol inhaler INHALE 2 PUFFS BY MOUTH TWICE DAILY active Not Available Not Available No t Available peg 3350 240 gram-elect rolytes 22.72 gram-6.72 g-5.84 g powdr for soln 02/17 completed Not Available Not Available Not Available Steven Catalanostar U-100 Insulin 100 unit/mL (3 mL) subcutaneo us pen ADM 20 UNI SC QHS active Not Available Not Available No t Available omeprazole 20 mg tablet,del ayed release 02/06 completed Not Available Not Available Not Available olopatadin e 0.6 % nasal spray USE 2 SPRAYS IN EACH NOSTRIL TWICE DAILY active Not Available Not Available No t Available B12 1 tab qd 09/13 completed Not Available Not Available Not Available Dulera 200 mcg-5 mcg/actuat ion HFA aerosol inhaler qd 06/11 completed Not Available Not Available Not Available Gamunex-C 10 gram/100 mL (10 %) injection solution active Not Available Not Available Not Available Gamunex-C 20 gram/200 mL (10 %) injection solution q month active Not Available Not Available Not Available Tradjenta 5 mg tablet TAKE 1 TABLET BY MOUTH EVERY DAY active Not Available Not Available No t Available Daliresp 500 mcg tablet TAKE 1 TABLET BY MOUTH DAILY active Not Available Not Available No t Available OneTouch Verio test strips USE TO CHECK BLOOD SUGARS THREE TIMES DAILY active Not Available Not Available No t Available Combivent Respimat 20 mcg-100 mcg/actuat ion solution for inhalation qd active Not Available Not Available N ot Available Victoza 2-Sean 0.6 mg/0.1 mL (18 mg/3 mL) subcutaneo us pen injector ADMINIST ER 1.8 MG UNDER THE SKIN EVERY DAY active Not Available Not Available No t Available Jardiance 10 mg tablet TAKE 1 TABLET BY MOUTH EVERY MORNING active Not Available Not Available No t Available Jardiance 25 mg tablet TAKE 1 TABLET BY MOUTH EVERY DAY active Not Available Not Available No t Available Incruse Ellipta 62.5 mcg/actuat ion powder for inhalation Inhale 1 puff every day by inhalati on route as directed . active Not Available Not Available No t Available Narcan 4 mg/actuati on nasal spray CALL 911. SPR CONTENTS OF ONE SPRAYER (0.1ML) INTO ONE NOSTRIL. REPEAT IN 2-3 MIN IF SYMPTOMS OF OPIOID EMERGENC Y PERSIST, ALTERNAT E NOSTRILS active Not Available Not Available No t Available OneTouch Verio Flex Meter USE TO CHECK BLOOD GLUCOSE THREE TIMES DAILY active Not Available Not Available No t Available TRUEplus Pen Needle 32 gauge x USE TO INJECT VICTOZA EVERY DAY active Not Available Not Available No t Available fluticason e 113 mcg-salmet monica 14 mcg/actuat ion breath activated powdr active Not Available Not Available Not Available fluticason e 232 mcg-salmet monica 14 mcg/actuat ion breath activated powdr active Not Available Not Available Not Available Trelegy Ellipta 100 mcg-62.5 mcg-25 mcg powder for inhalation active Not Available Not Available N ot Available Adult Aspirin Regimen 81 mg tablet,del ayed release Take 1 tablet every day by oral route. active Not Available Not Available No t Available Wixela Inhub 250 mcg-50 mcg/dose powder for inhalation active Not Available Not Available N ot Available OneTouch Delica Plus Lancet 33 gauge USE TO CHECK BLOOD GLUCOSE THREE TIMES DAILY active Not Available Not Available No t Available ID NOW COVID-19 Test Kit TEST DIRECTED TODAY active Not Available Not Available No t Available Afluria Qd 2019- (36 mos up)(PF)60 mcg (15 mcg x4)/0.5 mL IM syringe 11/17 completed Not Available Not Available Not Available Breztri Aerosphere 160 mcg-9mcg-4 .8mcg/actu ation HFA aerosol inhaler INHALE 2 PUFFS BY MOUTH IN THE MORNING AND IN THE EVENING. RINSE MOUTH WITH WATER. DO NOT SWALLOW WATER active Not Available Not Available No t Available Vitals Date Recorded Body height Body mass index (BMI) Body weight Provider Name and Address Organization Details Last Updated DateTime 06/11/2018 160.02 cm 32.1 kg/m2 61313.22 g Mariluz Purcell [facility] 06/11/2018 17:26:23 Date Recorded Body weight Heart rate Oxygen saturation Oxygen saturation in Arterial blood by Pulse oximetry Systolic blood pressure Diastolic blood pressure Provider Name and Address Organization Details Last Updated DateTime 0 21912.1 4 g 87 /min 88 % 88 % 128 mm[Hg] 75 mm[Hg] Fuentesesme Vallenicolas [facility] 0 12:31:53 Date Recorded Body weight Heart rate Respiratory rate Oxygen saturation Oxygen saturation in Arterial blood by Pulse oximetry Systolic blood pressure Diastolic blood pressure Provider Name and Address Organization Details Last Updated DateTime 1 48719.5 9 g 79 /min 16 /min 97 % 97 % 104 mm[Hg] 62 mm[Hg] Christal Galloway [facility] 1 16:08:54 Date Recorded Body weight Oxygen saturation Oxygen saturation in Arterial blood by Pulse oximetry Heart rate Systolic blood pressure Diastolic blood pressure Provider Name and Address Organization Details Last Updated DateTime 2 02179.5 1 g 95 % 95 % 78 /min 142 mm[Hg] 80 mm[Hg] [facility] 2 15:53:53 Date Recorded Body height Body mass index (BMI) Body weight Body weight Oxygen saturation Oxygen saturation in Arterial blood by Pulse oximetry Heart rate Systolic blood pressure Diastolic blood pressure Provider Name and Address Organization Details Last Updated DateTime 3 160.02 cm 27.9 kg/m2 77329.5 2 g 82610.8 6 g 90 % 90 % 62 /min 122 mm[Hg] 62 mm[Hg] [facility] 3 17:29:12 Social History None recorded. Functional Status None recorded. Mental Status None recorded. Family History Nothing Reported. Medical History Condition Response Depression Y COPD Y Stroke Y Diabetes Y Asthma Y Sleep Apnea Y GERD/Reflux Y Hypertension Y Gynecological HistoryNo gynecological history recorded. Obstetrics History GPAL:G 0 P 0 0 0 0 Past Encounters Encounter ID Performer Location Encounter Start Date Encounter Closed Date Diagnosis/Indication Diagnosis SNOMED-CT Code Diagnosis ICD10 Code Diagnosis Note [id number] Fuentes Bell MD [facility] [address] [place] [address] 02/18/2016 12:00:26 02/18/2016 13:17:22 Hyperlipidemia 44868777 E78.5 Needs to keep LDL less than 70, and HDL more than 40 Disorder o f coronary artery 324183727 I77.9 Diabetes mellitus 981855 09 E11.9 Obstructiv e sleep apnea syndrome 75429215 G47.33 Atypical chest pain 1025 52807 R07.89 Treadmill Myoview Stress test, has high Aguila Risk score. Has Known CAD, or CAD risk equivalent . To look for any ischemia. Carotid bruit 309073923 R09.89 [id number] Fuentes Bell MD [facility] [address] [place] [address] 11/21/2016 09:40:06 11/22/2016 10:41:10 Benign hypertension 02142320 I10 Now well controlled Disorder o f coronary artery 595692379 I77.9 stable no new angina Palpitations 47660900 R0 0.2 Atypical chest pain 1025 00095 R07.89 Hyperlipidemia 72501184 E78.5 Needs to keep LDL less than 70, and HDL more than 40 Diabetes mellitus 553095 09 E11.9 with fair control Obstructiv e sleep apnea syndrome 36916811 G47.33 Carotid bruit 417540731 R09.89 Edema of l ower extremity 155326332 R60.0 Dyslipidemia 952676019 E 78.5 [id number] Fuentes Bell MD [facility] [address] [place] [address] 02/06/2017 14:39:27 02/07/2017 12:40:08 Benign hypertension 56997932 I10 Now well controlled Disorder o f coronary artery 034517416 I77.9 stable angina Dobutamine Myoview stress test, pt can not walk. Has known coronary artery disease, with atypical symptoms now Palpitations 20765521 R0 0.2 Atypical chest pain 1025 46960 R07.89 Hyperlipidemia 94830015 E78.5 Needs to keep LDL less than 70, and HDL more than 40 Diabetes mellitus 502648 09 E11.9 with fair control Obstructiv e sleep apnea syndrome 91619413 G47.33 Carotid bruit 097701155 R09.89 Edema of l ower extremity 487188303 R60.0 Dyslipidemia 085662990 E 78.5 Needs to keep LDL less than 70, and HDL more than 40Will [place] [id number] Fuentes Bell MD [facility] [address] [place] [address] 05/21/2018 15:57:23 05/21/2018 17:01:21 Benign hypertension 96018387 I10 Now well controlled Disorder o f coronary artery 367297632 I77.9 stable angina The patient will be scheduled for left heart catheteriz ation, with coronary angiogram, and possible PTCA/Stent . The procedure was discussed with the patient, and risks, benefits, and alternativ e options were explained. The patient was given informatio n about heart catheteriz ation and interventi onal procedures . The patient agrees to proceed. Palpitations 37631580 R0 0.2 Atypical chest pain 1025 55336 R07.89 Hyperlipidemia 73051967 E78.5 Needs to keep LDL less than 70, and HDL more than 40 Diabetes mellitus 655634 09 E11.9 with fair control Obstructiv e sleep apnea syndrome 51874074 G47.33 Carotid bruit 306499151 R09.89 Edema of l ower extremity 599529032 R60.0 On Lasix Dyslipidemia 476817167 E 78.5 Needs to keep LDL less than 70, and HDL more than 40Will [place] [id number] Fuentes Bell MD [place] [facility] [place] [address] 06/11/2018 16:37:18 10/21/2018 17:12:22 Benign hypertension 64293715 I10 Now well controlled Disorder o f coronary artery 701805158 I77.9 stable angina Had Cardiac cath on 05/27/18 that mild to moderate coronary artery disease. Maximal medical treatment. Atypical chest pain 1025 87235 R07.89 Occasional , but feels that it is related to asthma. Hyperlipidemia 07364108 E78.5 Needs to keep LDL less than 70, and HDL more than 40. 06/11/18 Discontinu ed Simvastati n 20 mg and started Atorvastat in 40 mg.Continu e Fenofibrat e. Diabetes mellitus 753146 09 E11.9 with fair control Obstructiv e sleep apnea syndrome 90922363 G47.33 Wears CPAP machine. Edema of l ower extremity 804337178 R60.0 On Lasix Benign ess ential hypertension 3147854 I10 Well controlled . [id number] Fuentes Bell MD [place] [facility] [place] [address] 05/04/2020 12:06:21 05/04/2020 13:28:36 Disorder of coronary artery 833529912 I77.9 05/04/2020 stable angina Had Cardiac cath on 05/27/18 that mild to moderate coronary artery disease. Maximal medical treatment. Atypical chest pain 1025 65861 R07.89 05/04/2020S OB, Wheezing, coughing. Advised to go to ER.Occasio nal, but feels that it is related to asthma. Hyperlipidemia 42631358 E78.5 05/04/2020L ast LDL on 12/05/2019 71, Continue Atorvastat inTri 192Continu e Fenofibrat e.Needs to keep LDL less than 70, and HDL more than 40. 06/11/18 Discontinu ed Simvastati n 20 mg and started Atorvastat in 40 mg.Continu e Fenofibrat e. Diabetes mellitus 776330 09 E11.9 05/04/2020L ast A1C 8.9 manage per PCP Obstructiv e sleep apnea syndrome 75223279 G47.33 05/04/2020W ears CPAP machine. Edema of l ower extremity 207740361 R60.0 05/04/2020E maria de jesus noted to the lower extremitie s. Is not taking her lasix Benign ess ential hypertension 8406126 I10 05/04/2020W ell controlled . [id number] Alayna Olivo [place] [facility] [address] [place] [address] 04/04/2021 16:02:07 04/04/2021 16:58:51 Atypical chest pain 655197581 R07.89 Dobutamine Stress test, has high Aguila Risk score. Has Known CAD, or CAD risk equivalent . To look for any ischemia. Hyperlipidemia 21612006 E78.5 Needs to keep LDL less than 70, and HDL more than 40. 020 LDL 42Continue Lipitor 40 mg Diabetes mellitus 753228 09 E11.9 Treatment and evaluation by primary care doctor Discussed importance of adequate glycemic control to minimize cardiovasc ular disease progressio n, A1C goal of < 7% for type 2 DM. Obstructiv e sleep apnea syndrome 05636113 G47.33 Compliant with nightly CPAP use Edema of l ower extremity 009139630 R60.0 Stable on Lasix Benign ess ential hypertension 2251626 I10 Well controlled on current regimen Dizziness 888928127 R42 Obtain echo to evaluate for structural [place] [id number] Alayna Olivo [facility] [address] [place] [address] 10/18/2021 15:28:55 10/18/2021 16:18:34 Atypical chest pain 528972972 R07.89 Lexiscan Stress test, has high Aguila Risk score. Unable to walk a treadmill due to exercise induced chest pain and increased fall risk due to dizziness. Has Known CAD, or CAD risk equivalent . To look for any ischemia. Hyperlipidemia 54307368 E78.5 Needs to keep LDL less than 70, and HDL more than 40. 020 LDL 42Continue Lipitor 40 mg Diabetes mellitus 434154 E11.9 Treatment and evaluation by primary care doctor Discussed importance of adequate glycemic control to minimize cardiovasc ular disease progressio n, A1C goal of < 7% for type 2 DM. Obstructiv e sleep apnea syndrome 53481442 G47.33 Compliant with nightly CPAP use Edema of l ower extremity 572380506 R60.0 Stable on LasixLeg elevationO btain echo to evaluate for structural /functiona l disease. Benign ess ential hypertension 3917667 I10 Well controlled on current regimen Dizziness 913583075 R42 Obtain echo to evaluate for structural [place] [id number] Fuentes Bell MD [place] [facility] [address] [place] [address] 12/21/2022 16:52:03 12/21/2022 17:58:03 Atypical chest pain 146487631 R07.89 Hyperlipidemia 69307413 E78.5 Needs to keep LDL less than 70, and HDL more than 40. 020 LDL 42Continue Lipitor 40 mg Diabetes mellitus 504767 E11.9 Treatment and evaluation by primary care doctor Discussed importance of adequate glycemic control to minimize cardiovasc ular disease progressio n, A1C goal of < 7% for type 2 DM. Obstructiv e sleep apnea syndrome 93094568 G47.33 Compliant with nightly CPAP use Edema of l ower extremity 605537421 R60.0 Stable on LasixLeg elevationO btain echo to evaluate for structural /functiona l disease. Benign ess ential hypertension 7878181 I10 Well controlled on current regimen Dizziness 694101927 R42 24 Hour Holter, to evaluate arrhythmia Obtain echo to evaluate for structural /functiona l disease. Health Concerns Section Related Observation LastModified by Organization Detai ls LastModified Time None Recorded Concern Status LastModified by Organization Details LastModified Time None Recorded Advance Directives Directive None Recorded Payers Encounter Date Sequence Insurance Name Policy Number Policy Truong Covered Member ID Truong Member ID Guarantor Name 06/11/2018 1 [facility] PRIOR TO 04/14/2021 (MEDICAID REPLACEMENT - HMO) Alma Anderson [id number] Alma Anderson 05/04/2020 1 [facility] PRIOR TO 04/14/2021 (MEDICAID REPLACEMENT - HMO) Alma Anderson [id number] Alma Anderson 04/04/2021 1 [facility] PRIOR TO 04/14/2021 (MEDICAID REPLACEMENT - HMO) Alma Anderson [id number] Alma Anderson 10/18/2021 1 [facility] ON OR AFTER 04/14/21 (MEDICAID REPLACEMENT - HMO) Alma Anderson [id number] Alma Anderson 12/21/2022 1 [facility] ON OR AFTER 04/14/21 (MEDICAID REPLACEMENT - HMO) Alma Anderson [id number] Alma Anderson Notes Date Note Type Note Provider Name and Address Organization Details Recorded Time 06/11/2018 text/html 06/11/18 CC: Chest Pain, dizziness 57 year old white woman with Diabetes mellitus, and Hyperlipidemia , is here for follow-up. Had palpitations and dizziness few times last week. She continues to complain of a few episodes of chest pain. She reports that it is bettr than it was. She describes it as sharp and occasionally dull and heavy. No shortness of breath at rest. Reported dyspnea on exertion. No orthopnea. No PND's . No dizziness. No palpitation. No syncope or near syncope. Reported leg swelling. No nausea and vomiting. No major bleeding events.No side effects from medications. She had a cardiac cath on 05/27/18 that showed mild to moderate coronary artery disease. 02/10/16 ECHO: normal Left ventricular systolic function , EF > 55%, stage I diastolic dysfunction. 02/17/16 Carotid-Antegrade flow noted in both vertebral arteries. Mild bilateral internal carotid artery stenosis with less than 50% diameter stenosis. No previous study to compare. Recommend follow up study in 12 months. Results from this visit, or from the past: 08/01/17: Na 140 ,K 4.4 ,CL 102 ,CO2 27 ,GLU 114 ,BUN 13 ,CR 0.68 ,TC 223 ,TG 175 ,HDL 46 ,LDL 142 ,AST21 ,ALT16 , 11/28/16: SOD 136, K 4.4, CL 94, CO2 28, GL 122, BUN 11, CR 0.39 11/07/16: HB 14.4, HT 43.2 05/03/15 SOD 141, K 4.2, CL 104, Co2 27, GLU 125, BUN 17 05/03/15 TC 134, HDL 34, TR 130, LDL 74, AST 20, ALT 23. 12/08/15 SOD 139 K 4.3, CL 101, Co2 27, GLU 266, BUN 12,CR 0.50, HB 14.2,HT 42.6, EKG 05/21/18 : Left posterior hemiblock. Possibly acute anterior myocardial infarction EKG 11/21/16:sinus rhythm. P: normal. QRS: vertical axis. possible septal infarct. QS in V1 V2. R <0.15mV in V3. ST-T: normal .Conclusion: possibly abnormal ECG EK11/25/14 Sinus rhythm. Right atrial enlargement. Old anteroseptal infarct. Abnormal. EK12/06/15 Sinus rhythm. Right atrial enlargement (0.3MVP wave). Anteroseptal infarct(40+MS Q wave in v1-v4),age undetermined. Abnormal ECG. HOLTER: 01/03/16 Unremarkable holter. NUC: 12/22/14 Positive stress test. Normal LV systolic function with wall motion abnormality. Reversible defect consistent with ischemia in inferior area. LVEF 69%. CARDIAC CATHETERIZATION: 11/24/08 mild coronary artery disease, with single-vessel disease in the right coronary artery. Slightly elevated left ventricular end diastolic pressure. Normal left ventricular systolic function ULTRASOUND, CAROTID ARTERY DUPLEX 02/27/16: Antegrade flow noted in both vertebral arteries. Mild bilateral internal carotid artery stenosis with less than 50% diameter stenosis. No previous study to compare. Recommend follow up study in 12 months. ECHO 02/10/16: Normal global left ventricular size, wall thickness systolic function with no obvious regional wall motion abnormalities with an EF >55%. Abnormal relaxation filling pattern of the left ventricle for age (stage I diastolic dysfunction). ECHO: 02/10/14 Compared to prior study, there is no significant change. There is normal left ventricular wall thickness. Left ventricular systolic function is normal. EF=>55%. Fuentes Bell MD [address] [place], [address], [facility] 06/11/2018 18:28:12 05/04/2020 text/html 05-04-20 CC: leg swelling, Chest Pain, dizziness follow-up 59 year-old white woman with a PMH of CAD, diabetes mellitus, hypertension, hyperlipidemia, edema TATUM, presents today for follow-up. She was last seen in office May 2018. 5-6 appts have been rescheduled. Reports that she has been feeling sick and that her chest feels closed up. Has asthma and believes it related to it and her hereditary disorder. Reports frequent cough. Reports occasional low grade temps of 99. Denies temperatures above 100. Had palpitations and dizziness few times. She reports that it is better than it was before. Still reports chest pain daily, off and on throughout the day described as sharp pain. Pain reduced with nitroglycerin. Still feeling palpitations, occasional dizziness. Reports SOB at rest very occasionally. Leg swelling worsening recently. Lipid results from pt: 04/02/2020 - Cholesterol 114, triglyceride 111, HDL 50, LDL 40. Reported chest pain. Reported shortness of breath at rest. Reported dyspnea on exertion. No orthopnea. No PND's . Reported palpitations daily. No syncope or near syncope. Reported leg swelling that has increased. No nausea and vomiting. No major bleeding events. No side effects from medications. Reports cramping and sydney horses in her legs that wake her at night almost nightly and legs are sore like when you get the flu, worse with walking. Has TATUM on nightly CPAP therapy. She had a cardiac cath on 05/27/18 that showed mild to moderate coronary artery disease. Had echo 02/10/16: normal Left ventricular systolic function , EF > 55%, stage I diastolic dysfunction. 02/17/16 Carotid-Antegrade flow noted in both vertebral arteries. Mild bilateral internal carotid artery stenosis with less than 50% diameter stenosis. No previous study to compare. Recommend follow up study in 12 months. On Atorva 40 mg and Fenofibrate as of last visit Results from this visit, or from the past: 12/05/19 HgA1c: 8.9 12/05/19 BMP: NA 137, K 3.8, CL 97, CO2 25.5, GLU 179, BUN 8, CR 0.53 12/05/19 CBC: WBC 11.2, HGB 15.0, HCT 48.2, PLT 233 12/05/19 LIPID: TC 167, TR 192, HDL 58, LDL 71 08/01/17: Na 140 ,K 4.4 ,CL 102 ,CO2 27 ,GLU 114 ,BUN 13 ,CR 0.68 ,TC 223 ,TG 175 ,HDL 46 ,LDL 142 ,AST21 ,ALT16 , 11/28/16: SOD 136, K 4.4, CL 94, CO2 28, GL 122, BUN 11, CR 0.39 11/07/16: HB 14.4, HT 43.2 05/03/15 SOD 141, K 4.2, CL 104, Co2 27, GLU 125, BUN 17 05/03/15 TC 134, HDL 34, TR 130, LDL 74, AST 20, ALT 23. 12/08/15 SOD 139 K 4.3, CL 101, Co2 27, GLU 266, BUN 12,CR 0.50, HB 14.2,HT 42.6, EKG 05/21/18 : Left posterior hemiblock. Possibly acute anterior myocardial infarction EKG 11/21/16:sinus rhythm. P: normal. QRS: vertical axis. possible septal infarct. QS in V1 V2. R <0.15mV in V3. ST-T: normal .Conclusion: possibly abnormal ECG EK11/25/14 Sinus rhythm. Right atrial enlargement. Old anteroseptal infarct. Abnormal. EK12/06/15 Sinus rhythm. Right atrial enlargement (0.3MVP wave). Anteroseptal infarct(40+MS Q wave in v1-v4),age undetermined. Abnormal ECG. HOLTER: 01/03/16 Unremarkable holter. NUC: 12/22/14 Positive stress test. Normal LV systolic function with wall motion abnormality. Reversible defect consistent with ischemia in inferior area. LVEF 69%. CARDIAC CATHETERIZATION: 11/24/08 mild coronary artery disease, with single-vessel disease in the right coronary artery. Slightly elevated left ventricular end diastolic pressure. Normal left ventricular systolic function ULTRASOUND, CAROTID ARTERY DUPLEX 02/27/16: Antegrade flow noted in both vertebral arteries. Mild bilateral internal carotid artery stenosis with less than 50% diameter stenosis. No previous study to compare. Recommend follow up study in 12 months. ECHO 02/10/16: Normal global left ventricular size, wall thickness systolic function with no obvious regional wall motion abnormalities with an EF >55%. Abnormal relaxation filling pattern of the left ventricle for age (stage I diastolic dysfunction). ECHO: 02/10/14 Compared to prior study, there is no significant change. There is normal left ventricular wall thickness. Left ventricular systolic function is normal. EF=>55%. Fuentes Bell MD [address] [place], [address], [facility] 05/04/2020 13:28:33 04/04/2021 text/html 04/04/2021 CC: leg swelling, Chest Pain, dizziness follow-up 60-year-old white woman with a PMH of CAD, diabetes mellitus, hypertension, hyperlipidemia, edema TATUM, presents today for follow-up. She was last seen in clinic 11 months ago on 05/04/2020. She reports intermittent chest pain across both side of her chest. She has also has continued dizziness and palpitations. She continues to smoke about 1/2 ppd. No ER visits or hospitalizations since she was last seen. No shortness of breath at rest. No dyspnea on exertion. No orthopnea. No PND. No syncope or near syncope. No leg swelling. No nausea and vomiting. No side effects from medications. She had a cardiac cath on 05/27/18 that showed mild to moderate coronary artery disease. Had echo 02/10/16: normal Left ventricular systolic function , EF > 55%, stage I diastolic dysfunction. 02/17/16 Carotid-Antegrade flow noted in both vertebral arteries. Mild bilateral internal carotid artery stenosis with less than 50% diameter stenosis. No previous study to compare. Recommend follow up study in 12 months. Results from this visit, or from the past: 04/02/20 GL > 200, BUN 13, CR < 0.48, NA 136, K 4.8, CL < 98, C02, CA 8.8, TP 6.8, AST 28, ALT 24, AP 102 04/02/20 TC 114, TR 111, HDL 50, LDL 42 04/02/20 BUN 13 04/02/20 WBC > 11.3, RBC > 5.28, HGB 14.7, HCT > 45.5, PLT 235 04/02/20 IgG 608 04/02/20 HGM A1C 9.7 creatine kinase + creatine kinase mb, serum or plasma 04-02-2020 04/02/20 CR < 0.48 12/05/19 HgA1c: 8.9 12/05/19 BMP: NA 137, K 3.8, CL 97, CO2 25.5, GLU 179, BUN 8, CR 0.53 12/05/19 CBC: WBC 11.2, HGB 15.0, HCT 48.2, PLT 233 12/05/19 LIPID: TC 167, TR 192, HDL 58, LDL 71 08/01/17: Na 140 ,K 4.4 ,CL 102 ,CO2 27 ,GLU 114 ,BUN 13 ,CR 0.68 ,TC 223 ,TG 175 ,HDL 46 ,LDL 142 ,AST21 ,ALT16 , 11/28/16: SOD 136, K 4.4, CL 94, CO2 28, GL 122, BUN 11, CR 0.39 11/07/16: HB 14.4, HT 43.2 05/03/15 SOD 141, K 4.2, CL 104, Co2 27, GLU 125, BUN 17 05/03/15 TC 134, HDL 34, TR 130, LDL 74, AST 20, ALT 23. 12/08/15 SOD 139 K 4.3, CL 101, Co2 27, GLU 266, BUN 12,CR 0.50, HB 14.2,HT 42.6, 05/04/2020 EKG : Right atrial enlargement, probably old anterior CO EKG 05/21/18 : Left posterior hemiblock. Possibly acute anterior myocardial infarction EKG 11/21/16:sinus rhythm. P: normal. QRS: vertical axis. possible septal infarct. QS in V1 V2. R <0.15mV in V3. ST-T: normal .Conclusion: possibly abnormal ECG EK11/25/14 Sinus rhythm. Right atrial enlargement. Old anteroseptal infarct. Abnormal. EK12/06/15 Sinus rhythm. Right atrial enlargement (0.3MVP wave). Anteroseptal infarct(40+MS Q wave in v1-v4),age undetermined. Abnormal ECG. HOLTER: 01/03/16 Unremarkable holter. NUC: 12/22/14 Positive stress test. Normal LV systolic function with wall motion abnormality. Reversible defect consistent with ischemia in inferior area. LVEF 69%. CARDIAC CATHETERIZATION: 11/24/08 mild coronary artery disease, with single-vessel disease in the right coronary artery. Slightly elevated left ventricular end diastolic pressure. Normal left ventricular systolic function ULTRASOUND, CAROTID ARTERY DUPLEX 02/27/16: Antegrade flow noted in both vertebral arteries. Mild bilateral internal carotid artery stenosis with less than 50% diameter stenosis. No previous study to compare. Recommend follow up study in 12 months. ECHO 02/10/16: Normal global left ventricular size, wall thickness systolic function with no obvious regional wall motion abnormalities with an EF >55%. Abnormal relaxation filling pattern of the left ventricle for age (stage I diastolic dysfunction). ECHO: 02/10/14 Compared to prior study, there is no significant change. There is normal left ventricular wall thickness. Left ventricular systolic function is normal. EF=>55%. 07/18/15 STRESS LEXISCAN MYOVIEW: EKG portion of the stress test is negative for ischemia nuclear portion is pending. [place] - [facility] 04/11/2021 14:34:35 10/18/2021 text/html 10/18/20CC : Car diac follow up, chest [id number] white woman with a PMH of CAD, diabetes mellitus, hypertension, hyperlipidemia, and TATUM, presents today for 6 month follow-up.She was last seen in the clinic on 04/04/21 , since then she is doing wellShe denies ER visits and hospitalizations since she was last seen. Had few more episodes chest pain.Denies shortness of breath at rest. Has mild dyspnea on exertion.No orthopnea. No PNDs.occasional heart palpitations.Dizziness . Denies syncope or near syncope.No ankle or leg edema.No major bleeding events.No reported side effects from medications. Taking medications as prescribed with no missed doses.Denies snoring, daytime somnolence and AM headache.*Last LDL was 71 done on 12/04/19 .Pt takes atorvastatin 40 mg. Previously :She reports intermittent chest pain across both side of her chest. She has also has continued dizziness and palpitations. She continues to smoke about 1/2 ppd. No ER visits or hospitalizations since she was last seen. *She had a cardiac cath on 05/27/18 that showed mild to moderate coronary artery disease. *Had echo 02/10/16: normal Left ventricular systolic function , EF > 55%, stage I diastolic dysfunction. *02/17/16 Carotid-Antegrade flow noted in both vertebral arteries. Mild bilateral internal carotid artery stenosis with less than 50% diameter stenosis. No previous study to compare. Recommend follow up study in 12 months.Results from this visit, or from the past:04/02/20 GL > 200, BUN 13, CR < 0.48, NA 136, K 4.8, CL < 98, C02, CA 8.8, TP 6.8, AST 28, ALT 24, AP 102 04/02/20 TC 114, TR 111, HDL 50, LDL 42 04/02/20 BUN 13 04/02/20 WBC > 11.3, RBC > 5.28, HGB 14.7, HCT > 45.5, PLT 235 04/02/20 IgG 608 04/02/20 HGM A1C 9.7 creatine kinase + creatine kinase mb, serum or plasma 04-02-2020 04/02/20 CR < 0.48 12/05/19 HgA1c: 8.9 12/05/19 BMP: NA 137, K 3.8, CL 97, CO2 25.5, GLU 179, BUN 8, CR 0.53 12/05/19 CBC: WBC 11.2, HGB 15.0, HCT 48.2, PLT 233 12/05/19 LIPID: TC 167, TR 192, HDL 58, LDL 71 08/01/17: Na 140 ,K 4.4 ,CL 102 ,CO2 27 ,GLU 114 ,BUN 13 ,CR 0.68 ,TC 223 ,TG 175 ,HDL 46 ,LDL 142 ,AST21 ,ALT16 , 11/28/16: SOD 136, K 4.4, CL 94, CO2 28, GL 122, BUN 11, CR 0.39 11/07/16: HB 14.4, HT 43.2 05/03/15 SOD 141, K 4.2, CL 104, Co2 27, GLU 125, BUN 17 05/03/15 TC 134, HDL 34, TR 130, LDL 74, AST 20, ALT 23. 12/08/15 SOD 139 K 4.3, CL 101, Co2 27, GLU 266, BUN 12,CR 0.50, HB 14.2,HT 42.6, 05/04/2020 EKG : Right atrial enlargement, probably old anterior CO EKG 05/21/18 : Left posterior hemiblock. Possibly acute anterior myocardial infarction EKG 11/21/16:sinus rhythm. P: normal. QRS: vertical axis. possible septal infarct. QS in V1 V2. R <0.15mV in V3. ST-T: normal .Conclusion: possibly abnormal ECG EK11/25/14 Sinus rhythm. Right atrial enlargement. Old anteroseptal infarct. Abnormal. EK12/06/15 Sinus rhythm. Right atrial enlargement (0.3MVP wave). Anteroseptal infarct(40+MS Q wave in v1-v4),age undetermined. Abnormal ECG. HOLTER: 01/03/16 Unremarkable holter. NUC: 12/22/14 Positive stress test. Normal LV systolic function with wall motion abnormality. Reversible defect consistent with ischemia in inferior area. LVEF 69%. CARDIAC CATHETERIZATION: 11/24/08 mild coronary artery disease, with single-vessel disease in the right coronary artery. Slightly elevated left ventricular end diastolic pressure. Normal left ventricular systolic function ULTRASOUND, CAROTID ARTERY DUPLEX 02/27/16: Antegrade flow noted in both vertebral arteries. Mild bilateral internal carotid artery stenosis with less than 50% diameter stenosis. No previous study to compare. Recommend follow up study in 12 months. ECHO 02/10/16: Normal global left ventricular size, wall thickness systolic function with no obvious regional wall motion abnormalities with an EF >55%. Abnormal relaxation filling pattern of the left ventricle for age (stage I diastolic dysfunction). ECHO: 02/10/14 Compared to prior study, there is no significant change. There is normal left ventricular wall thickness. Left ventricular systolic function is normal. EF=>55%. 07/18/15 STRESS LEXISCAN MYOVIEW: EKG portion of the stress test is negative for ischemia nuclear portion is pending. [place] - [facility] 10/29/2021 19:15:52 12/21/2022 text/html 12/21/22CC : Car diac follow up, [id number] white woman with a PMH of CAD, diabetes mellitus, hypertension, hyperlipidemia, and TATUM, presents today for follow-up.She was last seen in the clinic on 10/18/21 , since then she is doing wellShe denies ER visits and hospitalizations since she was last seen. Denies shortness of breath at rest. Has mild dyspnea on exertion.No orthopnea. No PNDs.occasional heart palpitations.Dizziness . Denies syncope or near syncope.No ankle or leg edema.No major bleeding events.No reported side effects from medications. Taking medications as prescribed with no missed doses.Denies snoring, daytime somnolence and AM headache.*Last LDL was 71 done on 12/04/19 .Pt takes atorvastatin 40 mg.She has also has continued dizziness and palpitations. She continues to smoke about 1/2 ppd. No ER visits or hospitalizations since she was last seen. *She had a cardiac cath on 05/27/18 that showed mild to moderate coronary artery disease. *Had echo 02/10/16: normal Left ventricular systolic function , EF > 55%, stage I diastolic dysfunction. *02/17/16 Carotid-Antegrade flow noted in both vertebral arteries. Mild bilateral internal carotid artery stenosis with less than 50% diameter stenosis. No previous study to compare. Recommend follow up study in 12 months.Results from this visit, or from the past:04/02/20 GL > 200, BUN 13, CR < 0.48, NA 136, K 4.8, CL < 98, C02, CA 8.8, TP 6.8, AST 28, ALT 24, AP 102 04/02/20 TC 114, TR 111, HDL 50, LDL 42 04/02/20 BUN 13 04/02/20 WBC > 11.3, RBC > 5.28, HGB 14.7, HCT > 45.5, PLT 235 04/02/20 IgG 608 04/02/20 HGM A1C 9.7 creatine kinase + creatine kinase mb, serum or plasma 04-02-2020 04/02/20 CR < 0.48 12/05/19 HgA1c: 8.9 12/05/19 BMP: NA 137, K 3.8, CL 97, CO2 25.5, GLU 179, BUN 8, CR 0.53 12/05/19 CBC: WBC 11.2, HGB 15.0, HCT 48.2, PLT 233 12/05/19 LIPID: TC 167, TR 192, HDL 58, LDL 71 08/01/17: Na 140 ,K 4.4 ,CL 102 ,CO2 27 ,GLU 114 ,BUN 13 ,CR 0.68 ,TC 223 ,TG 175 ,HDL 46 ,LDL 142 ,AST21 ,ALT16 , 11/28/16: SOD 136, K 4.4, CL 94, CO2 28, GL 122, BUN 11, CR 0.39 11/07/16: HB 14.4, HT 43.2 05/03/15 SOD 141, K 4.2, CL 104, Co2 27, GLU 125, BUN 17 05/03/15 TC 134, HDL 34, TR 130, LDL 74, AST 20, ALT 23. 12/08/15 SOD 139 K 4.3, CL 101, Co2 27, GLU 266, BUN 12,CR 0.50, HB 14.2,HT 42.6, 05/04/2020 EKG : Right atrial enlargement, probably old anterior CO EKG 05/21/18 : Left posterior hemiblock. Possibly acute anterior myocardial infarction EKG 11/21/16:sinus rhythm. P: normal. QRS: vertical axis. possible septal infarct. QS in V1 V2. R <0.15mV in V3. ST-T: normal .Conclusion: possibly abnormal ECG EK11/25/14 Sinus rhythm. Right atrial enlargement. Old anteroseptal infarct. Abnormal. EK12/06/15 Sinus rhythm. Right atrial enlargement (0.3MVP wave). Anteroseptal infarct(40+MS Q wave in v1-v4),age undetermined. Abnormal ECG. HOLTER: 01/03/16 Unremarkable holter. NUC: 12/22/14 Positive stress test. Normal LV systolic function with wall motion abnormality. Reversible defect consistent with ischemia in inferior area. LVEF 69%. CARDIAC CATHETERIZATION: 11/24/08 mild coronary artery disease, with single-vessel disease in the right coronary artery. Slightly elevated left ventricular end diastolic pressure. Normal left ventricular systolic function ULTRASOUND, CAROTID ARTERY DUPLEX 02/27/16: Antegrade flow noted in both vertebral arteries. Mild bilateral internal carotid artery stenosis with less than 50% diameter stenosis. No previous study to compare. Recommend follow up study in 12 months. ECHO 02/10/16: Normal global left ventricular size, wall thickness systolic function with no obvious regional wall motion abnormalities with an EF >55%. Abnormal relaxation filling pattern of the left ventricle for age (stage I diastolic dysfunction). ECHO: 02/10/14 Compared to prior study, there is no significant change. There is normal left ventricular wall thickness. Left ventricular systolic function is normal. EF=>55%. 07/18/15 STRESS LEXISCAN MYOVIEW: EKG portion of the stress test is negative for ischemia nuclear portion is pending. Fuentes Bell MD [address] [place], [address], [facility] - [facility] 12/21/2022 17:53:36 OBGyn Episode No OBEpisode recorded.
--- OUTSIDE RECORDS SUMMARY | 2024-12-06 00:39 | XMS_ITS | Encounter Summary ---
Author Organization [facility] Address [address] [place] [address] Care Team Providers Care Civil Engineering Draftsperson Name Role Phone Angel Guerra MD Primary Care Provider [phone] Reason for Visit * Reason Onset Date Comments Medication Problem 10/04/2023 Encounter Details Date Type Department Care Team (Late st Contact Info) Description 10/04/2023 Telephone [facility] - Allergy [address], [place] [address] Trisha Bray MD [address] [place], [place] [id number] Medication Problem Social History Tobacco Use Types Packs/Day Years [...] Telephone Encounter - Trisha Bray MD - 10/04/2023 2:44 PM CST Wrote medical appeal letter to approve gamunex for hypogammaglobulinemia Trisha Bray MD Allergy & Immunology Fellow [employer] SALESPERSON documented in this encounter Plan of Treatment Upcoming Encounters Date Type Department Care Team (Late st Contact Info) Description 2025 3:00 PM [employer] SALESPERSON Office Visit [facility] - [facility] [address] [place] [address], [place] [address] Lee Mendez MD [address] [place] [address] [address] DIV OF ALLERGY/[place] [address] documented as of this encounter Visit Diagnoses Not on filedocumented in this encounter Care Teams Civil Engineering Draftsperson Relationship Specialty Start Date End Date Angel Guerra MD [address] [place] [address] PCP - General 01/11/22 documented as of this encounter
[2024-12-06] MEDS: oxyCODONE/ACETAMINOPHEN (*CRX) 10-325 MG TABLET 1 TAB PO ×3 (01:56→20:38)
--- NOTE | 2024-12-06 02:46 | ADMGEN ---
This patient, Alma Anderson, was admitted to 3 Med Surg Room 321-01 at 0246. Patient/family oriented to hospital policies and general routines including ID bracelet, bed and alarms, visiting hours, pain management, procedures, bathroom and other care routines, personal items, smoking policy, room service/diet, and visiting hours. Information on how to activate the Rapid Response Team has been discussed. Patient/Family are encouraged to report perceived risks to care and to ask questions if they do not understand what they are told or what they should do.
[2024-12-06] MEDS: methylPREDNISolone SOD SUCC 40 MG VIAL 60 MG IV PUSH ×4 (05:51→23:42)
[2024-12-06] MEDS: IPRATROPIUM 0.5 MG/ALBUTEROL SULFATE 2.5 MG AMPUL.NEB 3 ML INHALATION ×3 (07:25→19:27)
[2024-12-06 08:23] LABS: Glucose Point of Care 293 mg/dl (65-105)
--- NOTE | 2024-12-06 12:07 | P.HP_ITS ---
H&P: HPI History of Present Illness Date/Time: 12/06/24 12:07 Chief Complaint: Shortness of breath Narrative: Patient is a 64-year-old female who presents the emergency department this evening complaining of shortness of breath and a cough that is productive of sputum. Patient states that her symptoms have been ongoing for the past week but has worsened this evening. Admits that she does have a history of COPD and she is a smoker. She was on prednisone for 1 her COPD approximately 1 week ago which was prescribed to her by her primary care physician. Upon EMS arrival, they did note that the patient was satting 90% on room air. They did administer a DuoNeb breathing treatment prior to arrival to the emergency department. Patient states that she believes that the breathing treatment did help with her shortness of breath. She is currently denying any chest pain, nausea vomiting, abdominal pain or any additional symptoms. Review of Systems Review of Systems: - CONSTITUTIONAL: Denies weight loss, fe mohit and chills. - HEENT: Denies changes in vision and he aring - RESPIRATORY: Reports SOB and cough. - CV: Denies palpitations and CP. - GI: Denies abdominal pain, nausea, vom iting and diarrhea. - : Denies dysuria and urinary frequen cy. - MSK: Denies myalgia and joint pain. R eports leg swelling - SKIN: Denies rash and pruritus. - NEUROLOGICAL: Denies headache and sync ope. - PSYCHIATRIC: Denies recent changes in mood. Denies anxiety and depression. PMFSH Past Medical History Medical History Stroke ~14 mon ago Hyperlipidemia Hypertension Thyroid disease Anxiety Diabetes mellitus Asthma RLS (restless legs syndrome) CVID (common variable immunodeficiency) Allergic rhinitis Asthma TATUM (obstructive sleep apnea) Tobacco abuse Surgical History Surgical History History of incisional hernia repair Laparoscopic 5 cm reducible recurrent incisional hernia repair with mesh, da Kiko assisted on 08/29/23 [facility] H/O hemicolectomy 01/08/2022 Family History Family History Sibling Cancer Mother Cancer of kidney Other Cerebrovascular accident Diabetes mellitus Heart disease Hypertension Social History Social History Smoking packs per day: 0.5 Smoking cigarettes per day: 10.0 Years smoked: 40 Smoking pack-years: 20.00 Smoking status: Current every day smoker Tobacco type: cigarettes Second hand tobacco smoke exposure: No Additional smoking assessment comments: Smoking 0.5ppd now. Alcohol intake: never Drinks per week: 0 Substance use: current Substance use type: marijuana Other substance usage details: Gummies Last use: 12/04/24 Do You Feel Safe in your Home?: Yes Lack of Transportation: No Lack of Food: Never True Current Housing: I Have Housing Concerned About Future Housing: No Difficulty Paying Gas/Electric Bills: No Difficulty Paying for Meds: No Currently Unemployed: No Education: Bachelor's Degree Difficulty w/ Childcare or Family Care: No Living arrangements: alone Gender identity (if verbalized by the patient): Female Spiritual care concerns: No Meds Home Medications and Allergies Home Medications ?Medication ?Instructions ?Recorded ?Confirmed ?Type atorvastatin 40 mg tablet 40 mg PO HS 09/18/19 12/06/24 History famotidine 40 mg tablet 40 mg PO DAILY 09/18/19 12/06/24 History fenofibrate 160 mg tablet 160 mg PO HS 09/18/19 12/06/24 History levothyroxine 50 mcg tablet 50 mcg PO DAILY 09/18/19 12/06/24 History metoprolol tartrate 50 mg tablet 25 mg PO BID 09/18/19 12/06/24 History aspirin 81 mg tablet,delayed 81 mg PO HS 11/25/19 12/06/24 History release estradiol 1 mg tablet 0.5 mg PO HS 05/04/20 12/06/24 History potassium chloride 10 mEq 10 meq PO DAILY 05/04/20 12/06/24 History tablet,extended release ropinirole 0.5 mg tablet 0.5 mg PO TID 05/04/20 12/06/24 History immune glob G 40 gram/400 500 ml IV MONTHLY 06/26/22 12/06/24 History mL(10%)-gly-IgA ave 46 mcg/mL injection soln (Gamunex-C) albuterol sulfate 2.5 mg/3 mL 2.5 mg (3 mL) inhalation QID PRN 10/31/22 12/06/24 Rx (0.083 %) solution for nebulization shortness of breath or wheezing #360 mL fluoxetine 20 mg tablet 20 mg PO HS 01/27/23 12/06/24 History gabapentin 400 mg capsule 400 mg PO BID 01/27/23 12/06/24 History (Neurontin) budesonide 160 mcg-glycopyr 9 2 inh inhalation BID 08/23/23 12/06/24 History mcg-formot 4.8 mcg/actuation HFA inhaler (Breztri Aerosphere) liraglutide 0.6 mg/0.1 mL (18 mg/3 1.8 mg subcut DAILY 08/23/23 12/06/24 History mL) subcutaneous pen injector (Victoza 2-Sean) oxycodone-acetaminophen 10 mg-325 1 - 2 tablet PO Q4H PRN pain #30 08/31/23 12/06/24 Rx mg tablet (Percocet) tabs trazodone 100 mg tablet 100 mg PO HS 10/11/23 12/06/24 History Daliresp 500 mcg tablet See Rx Instructions .Route 10/22/23 12/06/24 Rx (roflumilast) .COMPLEX #90 tabs ipratropium 0.5 mg-albuterol 3 mg 3 ml inhalation Q6H PRN shortness 11/07/24 12/06/24 History (2.5 mg base)/3 mL nebulization of breath or wheezing soln Allergies Allergy/AdvReac Type Severity Reaction Status Date / Time Sulfa (Sulfonamide Allergy Unknown Nausea and Verified 11/07/24 08:42 Antibiotics) Vomiting Vital Signs Vital Signs - 24 hr 12/05/24 23:23 12/05/24 23:55 12/06/24 00:01 Temperature 98.5 F Pulse Rate 90 78 76 Respiratory Rate 21 H 16 15 Blood Pressure 123/64 Pulse Oximetry 90 Oxygen Delivery Room Air Oxygen Flow Rate 12/06/24 00:25 12/06/24 00:25 12/06/24 02:31 Temperature Pulse Rate 85 Respiratory Rate 15 Blood Pressure 126/58 L Pulse Oximetry 87 L 95 100 Oxygen Delivery Room Air Nasal Cannula Oxygen Flow Rate 2 12/06/24 02:32 12/06/24 02:33 12/06/24 03:00 Temperature Pulse Rate 84 Respiratory Rate 17 Blood Pressure 130/56 L Pulse Oximetry 97 96 91 Oxygen Delivery Room Air Nasal Cannula Oxygen Flow Rate 2 12/06/24 03:10 12/06/24 04:00 12/06/24 05:15 Temperature 97.6 F 98 F Pulse Rate 93 89 Respiratory Rate 18 20 Blood Pressure 146/68 H 140/52 L Pulse Oximetry 88 L 96 96 Oxygen Delivery Nasal Cannula Oxygen Flow Rate 3 12/06/24 07:25 12/06/24 07:25 12/06/24 07:35 Temperature Pulse Rate 87 87 88 Respiratory Rate 18 18 18 Blood Pressure Pulse Oximetry 95 Oxygen Delivery Nasal Cannula Oxygen Flow Rate 3 Exam Narrative: General: Alert, awake, afebrile, in no acute distress. HEENT: PERRL, no rhinorrhea Neck: Trachea midline, no JVD, no lymphadenopathy. Cardiovascular: Regular rate and rhythm, no murmurs, rubs or gallops, no peripheral edema. Respiratory: Mild wheezing bilaterally, no tachypnea, no respiratory distress. Coarse breath sounds bilaterally Abdomen: Soft, nontender, nondistended, no rebound, no guarding, no peritoneal signs. Musculoskeletal: No joint swelling or deformity, normal muscle tone. Skin: No rashes or petechia, no signs of infection. Trace to 1+ edema bilateral lower extremities Psychiatric: Alert and oriented, normal behavior and judgment for situation. Neurological: Alert and oriented to person, place, and time. Follows all commands. No focal deficits, speech is clear and fluent. H&P: Results Labs Labs: Short CBC 12/05/24 Range/Units 23:42 WBC 5.0 (4.5-10.0) K/mm3 Hgb 13.1 (12.0-15.0) g/dL Hct 39.8 (37.0-47.0) % Plt Count 187 (150-375) k/mm3 BMP 12/05/24 23:42 Sodium 134 L Potassium 4.0 Chloride 94 L Carbon Dioxide 32 H BUN 16 Creatinine 0.48 L Glucose 180 H Calcium 10.2 Liver Function 12/05/24 Range/Units 23:42 Total Bilirubin 0.7 (0.2-1.3) mg/dL AST 32 (14-36) U/L ALT 27 (6-35) U/L Alkaline Phosphatase 76 (38-126) U/L Albumin 4.1 (3.5-5.1) g/dL Assessment and Plan Assessment and plan (1) Diabetes mellitus: Qualifiers: Diabetes mellitus type: type 2 Diabetes mellitus residential insulin use: with terminal system operator use Diabetes mellitus complication status: without complication Qualified Code(s): E11.9 - Type 2 diabetes mellitus without complications; 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 Code(s): E11.9 - Type 2 diabetes mellitus without complications Status: Chronic (2) Hypertension: Code(s): I10 - Essential (primary) hypertension Status: Acute (3) CVID (common variable immunodeficiency): Code(s): D83.9 - Common variable immunodeficiency, unspecified Status: Chronic (4) RLS (restless legs syndrome): Code(s): G25.81 - Restless legs syndrome Status: Chronic (5) Asthma: Qualifiers: Asthma severity: unspecified severity Asthma persistence: unspecified Asthma complication type: unspecified Qualified Code(s): J45.909 - Unspecified asthma, uncomplicated Code(s): J45.909 - Unspecified asthma, uncomplicated Status: Acute (6) COPD exacerbation: Code(s): J44.1 - Chronic obstructive pulmonary disease with (acute) exacerbation Status: Acute (7) Acute hypoxic respiratory failure: Code(s): J96.01 - Acute respiratory failure with hypoxia Status: Acute (8) TATUM (obstructive sleep apnea): Code(s): G47.33 - Obstructive sleep apnea (adult) (pediatric) Status: Chronic (9) Tobacco abuse: Code(s): Z72.0 - Tobacco use Status: Acute Plan Patient is a 64-year-old female who presents the emergency department with his evening complaints of shortness of breath and a cough that is productive of sputum. Patient states that her symptoms have been ongoing for the past week but has worsened this evening. Admits that she does have a history of COPD and she is a smoker. She was on prednisone for her COPD approximately 1 week ago which was prescribed to her by her primary care physician. Upon EMS arrival, they did note that the patient was satting 90% on room air. She received DuoNeb treatment prior to arrival to the ED which helped. No chest pain nausea vomiting abdominal pain. She does report lower extremity swelling. On ED evaluation her vitals were stable except for hypoxia down to 87% on room air She was diffusely wheezy. Patient received a Solu-Medrol IV and DuoNeb treatment. EKG showed normal sinus rhythm with no acute ST-T changes. Magnesium was low at 1. Chest x-ray with no acute cardiopulmonary process. Laboratory evaluation revealed normal WBC of 5 hemoglobin of 13.1 Chem panel unremarkable. Influenza RSV and COVID swab was negative. She is admitted for further treatment. Acute hypoxic respiratory failure COPD exacerbation Lower extremity edema check venous duplex and echo History of stroke Hypertension Hyperlipidemia Diabetes mellitus Restless leg syndrome Common variable immunodeficiency Asthma Obstructive sleep apnea Tobacco abuse Code status full code DVT prophylaxis [facility] Hospitalist [facility] Advance Care Plan I have confirmed that the patient's Advanced Care Plan is present, code status is documented, or surrogate decision maker is listed in patient medical record.: Yes Medication Reconciliation I have utilized all available resources to obtain, update and review the patients current medications (includes all prescriptions, OTC, herbals, cannabis, and nutritional supplements).: Yes
[2024-12-06 12:19] LABS: Glucose Point of Care 288 mg/dl (65-105)
[2024-12-06] MEDS: ROFLUMILAST 500 MCG TABLET BY MOUTH (12:38)
[2024-12-06] MEDS: rOPINIRole HCL 0.5 MG TABLET PO ×2 (12:38→17:47)
[2024-12-06 13:27] LABS: Hematocrit 38.9 % (37.0-47.0); Hemoglobin 12.6 g/dL (12.0-15.0); Immature Granulocyte Absolute 0.02 K/mm3 (0.00-0.031); Immature Granulocyte Percent A 0.5 % (0-0.5); Lymphocytes Absolute Auto 0.19 K/mm3 (0.9-3.2); Lymphocytes Percent Auto 4.9 % (18.3-44.2); Mean Corpuscular HGB Conc 32.4 g/dl (32-36); Mean Corpuscular Hemoglobin 27.9 pg (26-34); Mean Corpuscular Volume 86.3 fl (80-100); Mean Platelet Volume 9.4 fl (7.4-10.4); Neutrophils Absolute Auto 3.6 K/mm3 (1.3-6.7); Neutrophils Percent Auto 93.6 % (45.5-73.1); Platelet Count Result 183 k/mm3 (150-375); Red Blood Count 4.51 M/mm3 (4.2-5.4); Red Cell Distribution Width 13.1 % (11.5-14.5); White Blood Count 3.9 K/mm3 (4.5-10.0)
[2024-12-06 13:38] LABS: Alanine Aminotransferase 23 U/L (6-35); Alkaline Phosphatase 81 U/L (38-126); Anion Gap 6 mmol/L (4-12); Aspartate Amino Transferase 25 U/L (14-36); Bilirubin,Total 0.5 mg/dL (0.2-1.3); Blood Urea Nitrogen 15 mg/dL (7-17); Calcium 9.2 mg/dL (8.4-10.2); Carbon Dioxide 32 mmol/L (22-30); Chloride 92 mmol/L (98-107); Estimated CRCL calculation 94 ml/min; Estimated Glomerular Filt Rate > 60; Glucose 274 mg/dL (65-110); Magnesium 1.4 mg/dL (1.6-2.3); Potassium 4.3 mmol/L (3.4-5.0); Sodium 130 mmol/L (137-145)
[2024-12-06] MEDS: FLUTICASONE/UMECLIDIN/VILANTER 100-62.5-25 MCG ELLIPTA 1 PUFF INHALATION (13:39)
[2024-12-06 13:46] LABS: NT Pro B Type Natriuretic Pept 296 pg/mL (19.9-100)
[2024-12-06 17:04] LABS: Glucose Point of Care 293 mg/dl (65-105)
[2024-12-06] MEDS: GABAPENTIN 400 MG CAPSULE PO (17:47)
[2024-12-06 20:33] LABS: Glucose Point of Care 189 mg/dl (65-105)
[2024-12-06] MEDS: FLUoxetine HCL 20 MG CAPSULE PO (20:38)
[2024-12-06] MEDS: estradioL 0.5 MG TABLET PO (20:38)
[2024-12-06] MEDS: ATORVASTATIN 40 MG TABLET PO (20:38)
[2024-12-06] MEDS: ASPIRIN 81 MG ENTERIC TABLET PO (20:38)
[2024-12-06] MEDS: ONDANSETRON INJ 4 MG/2 ML VIAL IV PUSH (20:38)
[2024-12-06] MEDS: traZODone HCL 50 MG TABLET 100 MG PO (20:38)
[2024-12-06] MEDS: FENOFIBRATE 160 MG TABLET PO (20:38)
[2024-12-06] MEDS: METOPROLOL TARTRATE 25 MG TABLET PO (20:39)
[2024-12-07] VITALS (14 sets, daily range): BP systolic 127–154; BP diastolic 57–70; PULSE 67–90; RESP 16–20; TEMP 36.8–37.1; O2SAT 92–100
[2024-12-07] MEDS: IPRATROPIUM 0.5 MG/ALBUTEROL SULFATE 2.5 MG AMPUL.NEB 3 ML INHALATION ×4 (01:08→19:53)
[2024-12-07] MEDS: LEVOTHYROXINE SODIUM 50 MCG TABLET PO (05:41)
[2024-12-07] MEDS: methylPREDNISolone SOD SUCC 40 MG VIAL 60 MG IV PUSH ×2 (05:41→12:13)
[2024-12-07 07:52] LABS: Glucose Point of Care 205 mg/dl (65-105)
[2024-12-07] MEDS: FLUTICASONE/UMECLIDIN/VILANTER 100-62.5-25 MCG ELLIPTA 1 PUFF INHALATION (07:56)
[2024-12-07] MEDS: ROFLUMILAST 500 MCG TABLET BY MOUTH (08:24)
[2024-12-07] MEDS: POTASSIUM CHLORIDE 10 MEQ ER TABLET PO (08:25)
[2024-12-07] MEDS: GABAPENTIN 400 MG CAPSULE PO ×2 (08:25→16:50)
[2024-12-07] MEDS: FAMOTIDINE 20 MG TABLET 40 MG PO (08:25)
[2024-12-07] MEDS: METOPROLOL TARTRATE 25 MG TABLET PO ×2 (08:26→19:52)
[2024-12-07] MEDS: rOPINIRole HCL 0.5 MG TABLET PO ×3 (08:26→16:50)
[2024-12-07 08:31] LABS: Basophils Percent Auto 0.2 % (0.2-1.2); Hematocrit 42.6 % (37.0-47.0); Hemoglobin 13.7 g/dL (12.0-15.0); Immature Granulocyte Absolute 0.02 K/mm3 (0.00-0.031); Immature Granulocyte Percent A 0.3 % (0-0.5); Lymphocytes Absolute Auto 0.37 K/mm3 (0.9-3.2); Lymphocytes Percent Auto 5.8 % (18.3-44.2); Mean Corpuscular HGB Conc 32.2 g/dl (32-36); Mean Corpuscular Hemoglobin 28.2 pg (26-34); Mean Corpuscular Volume 87.7 fl (80-100); Mean Platelet Volume 9.1 fl (7.4-10.4); Monocytes Absolute Auto 0.1 K/mm3 (0.1-0.6); Monocytes Percent Auto 1.6 % (2.6-8.5); Neutrophils Absolute Auto 5.8 K/mm3 (1.3-6.7); Neutrophils Percent Auto 92.1 % (45.5-73.1); Platelet Count Result 186 k/mm3 (150-375); Red Blood Count 4.86 M/mm3 (4.2-5.4); Red Cell Distribution Width 13.2 % (11.5-14.5); White Blood Count 6.3 K/mm3 (4.5-10.0)
[2024-12-07] MEDS: oxyCODONE/ACETAMINOPHEN (*CRX) 10-325 MG TABLET 1 TAB PO ×3 (08:45→19:53)
[2024-12-07 08:53] LABS: Alanine Aminotransferase 24 U/L (6-35); Albumin Level 4.1 g/dL (3.5-5.1); Alkaline Phosphatase 68 U/L (38-126); Anion Gap 5 mmol/L (4-12); Aspartate Amino Transferase 24 U/L (14-36); Bilirubin,Total 0.5 mg/dL (0.2-1.3); Blood Urea Nitrogen 15 mg/dL (7-17); Calcium 9.3 mg/dL (8.4-10.2); Carbon Dioxide 36 mmol/L (22-30); Chloride 96 mmol/L (98-107); Estimated CRCL calculation 108 ml/min; Estimated Glomerular Filt Rate > 60; Glucose 203 mg/dL (65-110); Magnesium 1.7 mg/dL (1.6-2.3); Potassium 4.6 mmol/L (3.4-5.0); Sodium 137 mmol/L (137-145)
[2024-12-07 12:00] LABS: Glucose Point of Care 285 mg/dl (65-105)
--- NOTE | 2024-12-07 12:20 | P.PNIM_ITS ---
Progress Note: A&P Assessment and Plan (1) Diabetes mellitus: Qualifiers: Diabetes mellitus type: type 2 Diabetes mellitus retirement insulin use: with buttermaker use Diabetes mellitus complication status: without complication Qualified Code(s): E11.9 - Type 2 diabetes mellitus without complications; Z79.4 - buttermaker (current) use of insulin Code(s): E11.9 - Type 2 diabetes mellitus without complications Status: Chronic (2) Hypertension: Code(s): I10 - Essential (primary) hypertension Status: Acute (3) CVID (common variable immunodeficiency): Code(s): D83.9 - Common variable immunodeficiency, unspecified Status: Chronic (4) RLS (restless legs syndrome): Code(s): G25.81 - Restless legs syndrome Status: Chronic (5) Asthma: Qualifiers: Asthma severity: unspecified severity Asthma persistence: unspecified Asthma complication type: unspecified Qualified Code(s): J45.909 - Unspecified asthma, uncomplicated Code(s): J45.909 - Unspecified asthma, uncomplicated Status: Acute (6) COPD exacerbation: Code(s): J44.1 - Chronic obstructive pulmonary disease with (acute) exacerbation Status: Acute (7) Acute hypoxic respiratory failure: Code(s): J96.01 - Acute respiratory failure with hypoxia Status: Acute (8) TATUM (obstructive sleep apnea): Code(s): G47.33 - Obstructive sleep apnea (adult) (pediatric) Status: Chronic (9) Tobacco abuse: Code(s): Z72.0 - Tobacco use Status: Acute Plan Patient is a 64-year-old female who presents the emergency department with his evening complaints of shortness of breath and a cough that is productive of sputum. Patient states that her symptoms have been ongoing for the past week but has worsened this evening. Admits that she does have a history of COPD and she is a smoker. She was on prednisone for her COPD approximately 1 week ago which was prescribed to her by her primary care physician. Upon EMS arrival, they did note that the patient was satting 90% on room air. She received DuoNeb treatment prior to arrival to the ED which helped. No chest pain nausea vomiti ng abdominal pain. She does report lower extremity swelling. On ED evaluation her vitals were stable except for hypoxia down to 87% on room air She was diffusely wheezy. Patient received a Solu-Medrol IV and DuoNeb treatment. EKG showed normal sinus rhythm with no acute ST-T changes. Magnesium was low at 1. Chest x-ray with no acute cardiopulmonary process. Laboratory evaluation revealed normal WBC of 5 hemoglobin of 13.1 Chem panel unremarkable. Influenza RSV and COVID swab was negative. She is admitted for further treatment. Acute hypoxic respiratory failure still requiring oxygen. Will get CTA to further evaluate COPD exacerbation steroid. Add Levaquin Lower extremity edema venous duplex is negative for DVT. Echo with EF 60-65% grade 1 diastolic dysfunction mild pulmonary hypertension. No significant valvular abnormality. History of stroke Hypertension Hyperlipidemia Diabetes mellitus Restless leg syndrome Common variable immunodeficiency Asthma Obstructive sleep apnea Tobacco abuse Code status full code DVT prophylaxis Lovenox Subjective Date/time seen: 12/07/24 12:20 Interval history: Patient feels much better. Still on 5 L oxygen. She does not use oxygen at home. Leg swelling present. Review of Systems Review of Systems: All systems reviewed & are unremarkable except as noted in HPI and below Exam 2 Narrative: General: Alert, awake, afebrile, in no acute distress. HEENT: PERRL, no rhinorrhea Neck: Trachea midline, no JVD, no lymphadenopathy. Cardiovascular: Regular rate and rhythm, no murmurs, rubs or gallops, no peripheral edema. Respiratory: Mild wheezing bilaterally, no tachypnea, no respiratory distress. Coarse breath sounds bilaterally Abdomen: Soft, nontender, nondistended, no rebound, no guarding, no peritoneal signs. Musculoskeletal: No joint swelling or deformity, normal muscle tone. Skin: No rashes or petechia, no signs of infection. Trace to 1+ edema bilateral lower extremities Psychiatric: Alert and oriented, normal behavior and judgment for situation. Neurological: Alert and oriented to person, place, and time. Follows all comm ands. No focal deficits, speech is clear and fluent. Objective Data Vital Signs Vital Signs: Vital Signs - 24 hr 12/06/24 13:05 12/06/24 13:15 12/06/24 14:21 Temperature 97.3 F L Pulse Rate 93 92 93 Respiratory Rate 18 18 20 Blood Pressure 149/76 H Pulse Oximetry 90 Oxygen Delivery Oxygen Flow Rate Fraction of Inspired Oxygen 12/06/24 19:27 12/06/24 19:27 12/06/24 19:40 Temperature Pulse Rate 98 103 H Respiratory Rate 20 20 Blood Pressure Pulse Oximetry 93 Oxygen Delivery Nasal Cannula Oxygen Flow Rate 5 Fraction of Inspired Oxygen 40 12/06/24 20:00 12/06/24 20:39 12/06/24 21:51 Temperature 98.3 F Pulse Rate 84 85 Respiratory Rate 18 Blood Pressure 137/54 L Pulse Oximetry 97 97 Oxygen Delivery Oxygen Flow Rate 3 Fraction of Inspired Oxygen 12/07/24 01:08 12/07/24 01:17 12/07/24 06:00 Temperature 98.3 F Pulse Rate 69 67 69 Respiratory Rate 18 18 20 Blood Pressure 127/57 L Pulse Oximetry 97 Oxygen Delivery Oxygen Flow Rate Fraction of Inspired Oxygen 12/07/24 07:56 12/07/24 07:56 12/07/24 08:11 Temperature Pulse Rate 86 86 84 Respiratory Rate 20 20 20 Blood Pressure Pulse Oximetry 92 Oxygen Delivery Nasal Cannula Oxygen Flow Rate 5 Fraction of Inspired Oxygen 12/07/24 08:26 12/07/24 08:26 Temperature Pulse Rate 84 Respiratory Rate 20 Blood Pressure Pulse Oximetry 92 Oxygen Delivery Nasal Cannula Oxygen Flow Rate 5 Fraction of Inspired Oxygen Intake/Output Intake/Output: Intake & Output 12/04/24 12/05/24 12/06/24 12/07/24 23:59 23:59 23:59 23:59 Intake Total 1882 790 Balance 1882 790 Meds/Results Medications: Active Medications Generic Name Dose Route Start Last Admin Trade Name Freq PRN Reason Stop Dose Admin Albuterol/Ipratropium 3 ml 12/06/24 08:00 12/07/24 07:56 Ipratropium 0.5 Mg/Albuterol Sulfate 2.5 Mg Ampul.Neb 3 Ml INHALATION 3 ml Q6HRT LISY Administration Albuterol/Ipratropium 3 ml 12/06/24 12:05 Ipratropium 0.5 Mg/Albuterol Sulfate 2.5 Mg Ampul.Neb 3 Ml INHALATION Q6H PRN shortness of breath or wheezing Aspirin 81 mg 12/06/24 21:00 12/06/24 20:38 Aspirin 81 Mg Enteric Tablet PO 81 mg HS LISY Administration Atorvastatin Calcium 40 mg 12/06/24 21:00 12/06/24 20:38 Atorvastatin 40 Mg Tablet PO 40 mg HS LISY Administration Estradiol 0.5 mg 12/06/24 21:00 12/06/24 20:38 Estradiol 0.5 Mg Tablet PO 0.5 mg HS LISY Administration Famotidine 40 mg 12/07/24 09:00 12/07/24 08:25 Famotidine 20 Mg Tablet PO 40 mg DAILY LISY Administration Fenofibrate 160 mg 12/06/24 21:00 12/06/24 20:38 Fenofibrate 160 Mg Tablet PO 160 mg HS LISY Administration Fluoxetine HCl 20 mg 12/06/24 21:00 12/06/24 20:38 Fluoxetine Hcl 20 Mg Capsule PO 20 mg HS LISY Administration Fluticasone/Umeclidinium/Vilanterol 1 puff 12/06/24 15:00 12/07/24 07:56 Fluticasone/Umeclidin/Vilanter 100-62.5-25 Mcg Ellipta INHALATION 1 puff DAILYRT LISY Administration Gabapentin 400 mg 12/06/24 17:00 12/07/24 08:25 Gabapentin 400 Mg Capsule PO 400 mg BID LISY Administration Levothyroxine Sodium 50 mcg 12/07/24 06:30 12/07/24 05:41 Levothyroxine Sodium 50 Mcg Tablet PO 50 mcg DAILY@0630 LISY Administration Methylprednisolone Sodium Succinate 60 mg 12/06/24 06:00 12/07/24 12:13 Methylprednisolone Sod Succ 40 Mg Vial IV PUSH 60 mg Q6HR LISY Administration Metoprolol Tartrate 25 mg 12/06/24 21:00 12/07/24 08:26 Metoprolol Tartrate 25 Mg Tablet PO 25 mg Q12HR LISY Administration Miscellaneous Information 1 each 12/06/24 00:01 12/07/24 07:35 Victoza Nonformulary. Can Patient Use Form Home Or Hold Till Discharge? XX 01/05/25 00:00 Not Given CLARIFY LISY Non-Formulary Medication 1.8 mg 12/07/24 09:00 Liraglutide [Victoza 2-Sean] SUB-Q 01/06/25 08:59 DAILY LISY Oxycodone/Acetaminophen 1 tab 12/06/24 12:05 12/07/24 08:45 Oxycodone/Acetaminophen (*Crx) 10-325 Mg Tablet PO 1 tab Q4H PRN Administration pain Perflutren Lipid Microsphere 0 ml 12/06/24 12:24 Perflutren Lipid Microspheres 1.5 Ml Vial Diluted To 10 Ml Total Volume IV PUSH 12/09/24 12:24 ONCE PRN adequate visualization Protocol Potassium Chloride 10 meq 12/07/24 09:00 12/07/24 08:25 Potassium Chloride 10 Meq Er Tablet PO 10 meq DAILY LISY Administration Roflumilast 500 mcg 12/06/24 13:00 12/07/24 08:24 Roflumilast 500 Mcg Tablet BY MOUTH 500 mcg DAILY LISY Administration Ropinirole HCl 0.5 mg 12/06/24 13:00 12/07/24 12:12 Ropinirole Hcl 0.5 Mg Tablet PO 0.5 mg TID LISY Administration Trazodone HCl 100 mg 12/06/24 21:00 12/06/24 20:38 Trazodone Hcl 50 Mg Tablet PO 100 mg HS LISY Administration Radiology Results: ITS Impressions Chest X-Ray 12/06/24 06:58 IMPRESSION: 1. No acute cardiopulmonary disease. Venous Doppler Study 12/06/24 19:19 IMPRESSION: 1. No deep venous thrombosis. Labs Labs: Laboratory Results - last 24 hr 12/06/24 12/06/24 12/06/24 13:12 17:00 20:12 WBC 3.9 L RBC 4.51 Hgb 12.6 Hct 38.9 MCV 86.3 MCH 27.9 MCHC 32.4 RDW 13.1 Plt Count 183 MPV 9.4 Immature Gran % (Auto) 0.5 Neut % (Auto) 93.6 H Lymph % (Auto) 4.9 L [place] % (Auto) 1.0 L Eos % (Auto) 0.0 Baso % (Auto) 0.0 L Lymph # (Auto) 0.19 L [place] # (Auto) 0.0 L Eos # (Auto) 0.0 Baso # (Auto) 0.0 Abs Immat Gran (auto) 0.02 Absolute Neuts (auto) 3.6 Absolute Nucleated RBC 0.000 Nucleated RBC % 0.0 Sodium 130 L Potassium 4.3 Chloride 92 L Carbon Dioxide 32 H Anion Gap 6 BUN 15 Creatinine 0.47 L Estim Creat Clear Calc 94 Estimated GFR > 60 Glucose 274 H POC Capillary Glucose 293 H 189 H Calcium 9.2 Magnesium 1.4 L Total Bilirubin 0.5 AST 25 ALT 23 Alkaline Phosphatase 81 NT-Pro-B Natriuret Pep 296 H Total Protein 8.0 Albumin 4.0 12/07/24 12/07/24 12/07/24 07:47 08:23 11:52 WBC 6.3 RBC 4.86 Hgb 13.7 Hct 42.6 MCV 87.7 MCH 28.2 MCHC 32.2 RDW 13.2 Plt Count 186 MPV 9.1 Immature Gran % (Auto) 0.3 Neut % (Auto) 92.1 H Lymph % (Auto) 5.8 L [place] % (Auto) 1.6 L Eos % (Auto) 0.0 Baso % (Auto) 0.2 Lymph # (Auto) 0.37 L [place] # (Auto) 0.1 Eos # (Auto) 0.0 Baso # (Auto) 0.0 Abs Immat Gran (auto) 0.02 Absolute Neuts (auto) 5.8 Absolute Nucleated RBC 0.000 Nucleated RBC % 0.0 Sodium 137 Potassium 4.6 Chloride 96 L Carbon Dioxide 36 H Anion Gap 5 BUN 15 Creatinine 0.40 L Estim Creat Clear Calc 108 Estimated GFR > 60 Glucose 203 H POC Capillary Glucose 205 H 285 H Calcium 9.3 Magnesium 1.7 Total Bilirubin 0.5 AST 24 ALT 24 Alkaline Phosphatase 68 NT-Pro-B Natriuret Pep Total Protein 8.0 Albumin 4.1
[2024-12-07] MEDS: levoFLOXacin 750 MG/D5W 150 ML 750 MG/150 ML BAG 100 MG IVPB (12:55)
[2024-12-07 16:35] LABS: Glucose Point of Care 326 mg/dl (65-105)
[2024-12-07] MEDS: ASPIRIN 81 MG ENTERIC TABLET PO (19:52)
[2024-12-07] MEDS: estradioL 0.5 MG TABLET PO (19:52)
[2024-12-07] MEDS: FENOFIBRATE 160 MG TABLET PO (19:52)
[2024-12-07] MEDS: traZODone HCL 50 MG TABLET 100 MG PO (19:53)
[2024-12-07] MEDS: FLUoxetine HCL 20 MG CAPSULE PO (19:53)
[2024-12-07] MEDS: ATORVASTATIN 40 MG TABLET PO (19:54)
[2024-12-07 21:40] LABS: Glucose Point of Care 293 mg/dl (65-105)
[2024-12-08] VITALS (13 sets, daily range): BP systolic 130–133; BP diastolic 57–86; PULSE 64–118; RESP 16–20; TEMP 36.4–37.3; O2SAT 91–98
[2024-12-08] MEDS: IPRATROPIUM 0.5 MG/ALBUTEROL SULFATE 2.5 MG AMPUL.NEB 3 ML INHALATION ×3 (01:17→14:11)
[2024-12-08] MEDS: LEVOTHYROXINE SODIUM 50 MCG TABLET PO (05:11)
[2024-12-08] MEDS: oxyCODONE/ACETAMINOPHEN (*CRX) 10-325 MG TABLET 1 TAB PO ×2 (05:26→11:59)
[2024-12-08 07:53] LABS: Basophils Percent Auto 0.2 % (0.2-1.2); Eosinophils Percent Auto 0.6 % (0-4.4); Hematocrit 38.3 % (37.0-47.0); Hemoglobin 12.3 g/dL (12.0-15.0); Immature Granulocyte Absolute 0.01 K/mm3 (0.00-0.031); Immature Granulocyte Percent A 0.2 % (0-0.5); Lymphocytes Absolute Auto 1.04 K/mm3 (0.9-3.2); Mean Corpuscular HGB Conc 32.1 g/dl (32-36); Mean Corpuscular Hemoglobin 28.9 pg (26-34); Mean Corpuscular Volume 90.1 fl (80-100); Mean Platelet Volume 9.5 fl (7.4-10.4); Monocytes Absolute Auto 0.3 K/mm3 (0.1-0.6); Neutrophils Absolute Auto 3.3 K/mm3 (1.3-6.7); Platelet Count Result 146 k/mm3 (150-375); Red Blood Count 4.25 M/mm3 (4.2-5.4); Red Cell Distribution Width 13.2 % (11.5-14.5); White Blood Count 4.7 K/mm3 (4.5-10.0)
[2024-12-08] MEDS: FLUTICASONE/UMECLIDIN/VILANTER 100-62.5-25 MCG ELLIPTA 1 PUFF INHALATION (07:55)
[2024-12-08 08:07] LABS: Alanine Aminotransferase 18 U/L (6-35); Albumin Level 3.6 g/dL (3.5-5.1); Alkaline Phosphatase 66 U/L (38-126); Anion Gap 3 mmol/L (4-12); Aspartate Amino Transferase 22 U/L (14-36); Bilirubin,Total 0.4 mg/dL (0.2-1.3); Blood Urea Nitrogen 19 mg/dL (7-17); Calcium 8.9 mg/dL (8.4-10.2); Carbon Dioxide 35 mmol/L (22-30); Chloride 98 mmol/L (98-107); Estimated CRCL calculation 87 ml/min; Estimated Glomerular Filt Rate > 60; Glucose 111 mg/dL (65-110); Magnesium 1.7 mg/dL (1.6-2.3); Potassium 4.4 mmol/L (3.4-5.0); Sodium 136 mmol/L (137-145)
[2024-12-08 08:19] LABS: Glucose Point of Care 120 mg/dl (65-105)
[2024-12-08] MEDS: GABAPENTIN 400 MG CAPSULE PO (09:13)
[2024-12-08] MEDS: ROFLUMILAST 500 MCG TABLET BY MOUTH (09:13)
[2024-12-08] MEDS: POTASSIUM CHLORIDE 10 MEQ ER TABLET PO (09:13)
[2024-12-08] MEDS: FAMOTIDINE 20 MG TABLET 40 MG PO (09:13)
[2024-12-08] MEDS: methylPREDNISolone SOD SUCC 40 MG VIAL 60 MG IV PUSH (09:14)
[2024-12-08] MEDS: METOPROLOL TARTRATE 25 MG TABLET PO (09:14)
[2024-12-08] MEDS: rOPINIRole HCL 0.5 MG TABLET PO ×2 (09:14→11:59)
--- NOTE | 2024-12-08 11:51 | P.DS_ITS ---
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 Code(s): E11.9 - Type 2 diabetes mellitus without complications Status: Chronic (2) Hypertension: Code(s): I10 - Essential (primary) hypertension Status: Acute (3) CVID (common variable immunodeficiency): Code(s): D83.9 - Common variable immunodeficiency, unspecified Status: Chronic (4) RLS (restless legs syndrome): Code(s): G25.81 - Restless legs syndrome Status: Chronic (5) Asthma: Qualifiers: Asthma complication type: unspecified Asthma persistence: unspecified Asthma severity: unspecified severity Qualified Code(s): J45.909 - Unspecified asthma, uncomplicated Code(s): J45.909 - Unspecified asthma, uncomplicated Status: Acute (6) COPD exacerbation: Code(s): J44.1 - Chronic obstructive pulmonary disease with (acute) exacerbation Status: Acute (7) Acute hypoxic respiratory failure: Code(s): J96.01 - Acute respiratory failure with hypoxia Status: Acute (8) TATUM (obstructive sleep apnea): Code(s): G47.33 - Obstructive sleep apnea (adult) (pediatric) Status: Chronic (9) Tobacco abuse: Code(s): Z72.0 - Tobacco use Status: Acute DS: Summary Hospital Course Hospital Course: Patient is a 64-year-old female who presents the emergency department with his evening complaints of shortness of breath and a cough that is productive of sputum. Patient states that her symptoms have been ongoing for the past week but has worsened this evening. Admits that she does have a history of COPD and she is a smoker. She was on prednisone for her COPD approximately 1 week ago which was prescribed to her by her primary care physician. Upon EMS arrival, they did note that the patient was satting 90% on room air. She received DuoNeb treatment prior to arrival to the ED which helped. No chest pain nausea vomiting abdominal pain. She does report lower extremity swelling. On ED evaluation her vitals were stable except for hypoxia down to 87% on room air She was diffusely wheezy. Patient received a Solu-Medrol IV and DuoNeb treatment. EKG showed normal sinus rhythm with no acute ST-T changes. M agnesium was low at 1. Chest x-ray with no acute cardiopulmonary process. Laboratory evaluation revealed normal WBC of 5 hemoglobin of 13.1 Chem panel unremarkable. Influenza RSV and COVID swab was negative. She is admitted for further treatment. Acute hypoxic respiratory failure requiring oxygen supplementation. CTA was performed which came back negative for PE. Oxygen has been tapered off. Home oxygen evaluation was performed and she did not require any oxygen at discharge. COPD exacerbation steroid. Add Levaquin. Continue antibiotics at discharge Lower extremity edema venous duplex is negative for DVT. Echo with EF 60-65% grade 1 diastolic dysfunction mild pulmonary hypertension. No significant valvular abnormality. History of stroke Hypertension Hyperlipidemia Diabetes mellitus Restless leg syndrome Common variable immunodeficiency Asthma Obstructive sleep apnea Tobacco abuse Code status full code DVT prophylaxis Lovenox Time Spent with Patient Time attestation: Total time spent providing and/or coordinating discharge services: 40 minute Exam Narrative: General: Alert, awake, afebrile, in no acute distress. HEENT: PERRL, no rhinorrhea Neck: Trachea midline, no JVD, no lymphadenopathy. Cardiovascular: Regular rate and rhythm, no murmurs, rubs or gallops, no peripheral edema. Respiratory: Mild wheezing bilaterally, no tachypnea, no respiratory distress. Coarse breath sounds bilaterally Abdomen: Soft, nontender, nondistended, no rebound, no guarding, no peritoneal signs. Musculoskeletal: No joint swelling or deformity, normal muscle tone. Skin: No rashes or petechia, no signs of infection. Trace to 1+ edema bilateral lower extremities Psychiatric: Alert and oriented, normal behavior and judgment for situation. Neurological: Alert and oriented to person, place, and time. Follows all commands. No focal deficits, speech is clear and fluent. DS: Data Data Completed and Pending Completed studies during hospitalization: Exam Type: CA echo doppler color flow Study Info Indications - Edema Complete two-dimensional, color flow and Doppler transthoracic echocardiogram is performed. Summary 1. Complete two-dimensional, color flow and Doppler transthoracic echocardiogram is performed. 2. Left ventricular chamber dimension is normal. 3. Left ventricular systolic function is normal, estimated at 60-65%. 4. The left ventricular diastolic function is grade I diastolic dysfunction. 5. E/e' 10 is mildly elevated. 6. Left atrial chamber dimension is mildly enlarged. 7. There is mild aortic valve sclerosis. 8. Mild pulmonary hypertension, estimated pulmonary arterial systolic pressure is 43 mmHg. 9. Dilated inferior vena cava with >50% collapse upon inspiration consistent with normal right atrial pressure, 10 mmHg. Left Ventricle E/e' 10 is mildly elevated. Left ventricular chamber dimension is normal. Left ventricular systolic function is normal, estimated at 60-65%. The left ventricular diastolic function is grade I diastolic dysfunction. Right Ventricle Right ventricular systolic function is normal and with normal TAPSE 2.1 cm. Right ventricular chamber dimension is normal. Left Atria Left atrial chamber dimension is mildly enlarged. Right Atria Right atrial chamber dimension is normal. Aortic Valve The aortic valve is trileaflet. There is mild aortic valve sclerosis. There is no aortic valve stenosis. There is no aortic valve regurgitation. Pulmonic Valve There is no pulmonic regurgitation. Mitral Valve There is no mitral valve stenosis. There is no mitral valve regurgitation. Tricuspid Valve There is no tricuspid valve regurgitation. Mild pulmonary hypertension, estimated pulmonary arterial systolic pressure is 43 mmHg. Pericardium/Pleural There is no pericardial effusion. Inferior Vena Cava Dilated inferior vena cava with >50% collapse upon inspiration consistent with normal right atrial pressure, 10 mmHg. Aorta The aortic root size at the sinus of Valsalva is normal. Labs on day of discharge: Labs from last 24 hours 12/08/24 12/08/24 12/07/24 08:08 07:31 20:21 WBC 4.7 RBC 4.25 Hgb 12.3 Hct 38.3 MCV 90.1 MCH 28.9 MCHC 32.1 RDW 13.2 Plt Count 146 L MPV 9.5 Immature Gran % (Auto) 0.2 Neut % (Auto) 70.0 Lymph % (Auto) 22.0 [place] % (Auto) 7.0 Eos % (Auto) 0.6 Baso % (Auto) 0.2 Lymph # (Auto) 1.04 [place] # (Auto) 0.3 Eos # (Auto) 0.0 Baso # (Auto) 0.0 Abs Immat Gran (auto) 0.01 Absolute Neuts (auto) 3.3 Absolute Nucleated RBC 0.000 Nucleated RBC % 0.0 Sodium 136 L Potassium 4.4 Chloride 98 Carbon Dioxide 35 H Anion Gap 3 L BUN 19 H Creatinine 0.51 L Estim Creat Clear Calc 87 Estimated GFR > 60 Glucose 111 H POC Capillary Glucose 120 H 293 H Calcium 8.9 Magnesium 1.7 Total Bilirubin 0.4 AST 22 ALT 18 Alkaline Phosphatase 66 Total Protein 7.0 Albumin 3.6 12/07/24 12/07/24 16:33 11:52 WBC RBC Hgb Hct MCV MCH MCHC RDW Plt Count MPV Immature Gran % (Auto) Neut % (Auto) Lymph % (Auto) [place] % (Auto) Eos % (Auto) Baso % (Auto) Lymph # (Auto) [place] # (Auto) Eos # (Auto) Baso # (Auto) Abs Immat Gran (auto) Absolute Neuts (auto) Absolute Nucleated RBC Nucleated RBC % Sodium Potassium Chloride Carbon Dioxide Anion Gap BUN Creatinine Estim Creat Clear Calc Estimated GFR Glucose POC Capillary Glucose 326 H 285 H Calcium Magnesium Total Bilirubin AST ALT Alkaline Phosphatase Total Protein Albumin Imaging Radiologist's impression: ITS Impressions Chest X-Ray 12/06/24 06:58 IMPRESSION: 1. No acute cardiopulmonary disease. Venous Doppler Study 12/06/24 19:19 IMPRESSION: 1. No deep venous thrombosis. Chest CTA 12/08/24 10:01 IMPRESSION: No pulmonary embolus. No thoracic aortic dissection. No acute findings within the bilateral lung anthony, as detailed above. Discharge Plan Discharge Attending physician on discharge: Joao Roach Discharging Clinician: Joao Roach Anticipated Discharge Date/Time: 12/08/24 15:10 Patient Disposition: Home, Self-Care Activity: as tolerated Diet: heart healthy Patient Instructions: Antibiotic Form, Hypomagnesemia (GEN) Patient Language: [place] Irish Stand Alone Forms: General Discharge Information Follow-up/Referrals: George,Corey Peralta APRN [Primary Care Provider] - 1 Week Discharge Medications: New prednisone 20 mg tablet 20 mg PO DAILY Qty: 6 0RF levofloxacin 500 mg tablet 500 mg PO DAILY Qty: 5 0RF Continued ipratropium-albuterol 0.5 mg-3 mg(2.5 mg base)/3 mL solution for nebulization 3 ml inhalation Q6H PRN (Reason: shortness of breath or wheezing) atorvastatin 40 mg tablet 40 mg PO HS famotidine 40 mg tablet 40 mg PO DAILY fenofibrate 160 mg tablet 160 mg PO HS levothyroxine 50 mcg tablet 50 mcg PO DAILY metoprolol tartrate 50 mg tablet 25 mg PO BID Rx Instructions: pt stats, takes half in the morning and half at night. aspirin 81 mg tablet,delayed release (DR/EC) 81 mg PO HS Gamunex-C 40 gram/400 mL (10 %) solution 500 ml IV MONTHLY Patient Comments: Pt had an issue with insurance, is working on getting next dose scheduled, okay with not recieving during this admission Rx Instructions: 50g q28 days potassium chloride 10 mEq tablet extended release 10 meq PO DAILY estradiol 1 mg tablet 0.5 mg PO HS ropinirole 0.5 mg Tablet 0.5 mg PO TID gabapentin [Neurontin] 400 mg capsule 400 mg PO BID fluoxetine 20 mg tablet 20 mg PO HS liraglutide [Victoza 2-Sean] 0.6 mg/0.1 mL (18 mg/3 mL) Pen Injector 1.8 mg SUBCUT DAILY Breztri Aerosphere 160-9-4.8 mcg/actuation HFA aerosol inhaler 2 inh INHALATION BID oxycodone-acetaminophen [Percocet] 10-325 mg tablet 1 - 2 tablet PO Q4H PRN (Reason: pain) Qty: 30 0RF trazodone 100 mg tablet 100 mg PO HS albuterol sulfate 2.5 mg /3 mL (0.083 %) solution for nebulization 2.5 mg inhalation QID PRN (Reason: shortness of breath or wheezing) Qty: 360 3RF roflumilast [Daliresp] 500 mcg tablet See Rx Instructions .ROUTE .COMPLEX Qty: 90 0RF Dose Instruction: TAKE 1 TABLET BY MOUTH DAILY Rx Instructions: TAKE 1 TABLET BY MOUTH DAILY. Need appt for refills Date of admission: 12/06/24 01:21 Primary Care Provider: George,Corey Peralta Admitting Provider: Crystal Cota Attending physician on admission: Crystal Cota Condition: Improved
[2024-12-08] MEDS: levoFLOXacin 750 MG/D5W 150 ML 750 MG/150 ML BAG 100 MG IVPB (11:59)
[2024-12-08 12:25] LABS: Glucose Point of Care 228 mg/dl (65-105)
--- NOTE | 2024-12-08 14:28 | PCRCNOTE ---
No home O2 needed. Home O2 eval done.
== END 2024-12-08 16:35 | disposition home or self-care (01) | DRG 140 ==
LOC: ANHED 12-06 01:24 → ANH3MEDSUR 12-06 04:40
PROVIDERS: Admitting Provider Internal Medicine; Emergency Provider Emergency Medicine; PCP Registered Nurse; Visit Provider Internal Medicine
DX: J44.1 Chronic obstructive pulmonary disease with (acute) exacerbation (principal); E78.5 Hyperlipidemia, unspecified; I10 Essential (primary) hypertension; E83.42 Hypomagnesemia; E11.9 Type 2 diabetes mellitus without complications; G25.81 Restless legs syndrome; G47.33 Obstructive sleep apnea (adult) (pediatric); F17.210 Nicotine dependence, cigarettes, uncomplicated; Z86.73 Personal history of transient ischemic attack (TIA), and cerebral infarction without residual deficits; Z99.81 Dependence on supplemental oxygen; Z79.4 Long term (current) use of insulin; Z20.822 Contact with and (suspected) exposure to COVID-19
CPT/HCPCS: 36415; 71045; 71275; 80053; 82948; 83735; 83880; 85025; 87637; 93005; 93306; 93970; 94618; 94640; 96374; 99285; A9270; J1956; J2405; J2919; J3475; Q9967

== ENCOUNTER 2024-12-31 14:59 | Inpatient (IN) | payer OTHER, SELFPAY ==
--- NOTE | ~2024-12-31 | XR_ITS ---
CHEST RADIOGRAPH, PA AND LATERAL CLINICAL HISTORY: cp, sob, cough . COMPARISON: 12/06/2024 TECHNIQUE: PA and lateral views of the chest. FINDINGS The cardiomediastinal silhouette is unremarkable. Blunting of the right costophrenic sulcus suggesting a small right-sided pleural effusion. The remainder of the lungs are clear. IMPRESSION: Small right-sided pleural effusion without focal infiltrate. Reviewed, dictated and finalized at location A.
--- NOTE | ~2024-12-31 | CT_ITS ---
EXAMINATION: CT abdomen pelvis wo con DATE: 01/01/2025 12:28 INDICATION: Abdominal pain TECHNIQUE: Computed tomography (CT) of the abdomen and pelvis was performed without intravenous contr ast. Automated exposure control and iterative reconstruction technique were employed. The dose-length product was 395.62 mGy-cm. COMPARISON: 06/29/2023 FINDINGS: Calcified right middle lobe nodule consistent with old granulomatous disease. Heart size is normal. N o pericardial or pleural effusion. There are few scattered hepatic and splenic calcifications also co nsistent with old granulomatous disease., Bladder not visualized consistent with prior cholecystectom y. Pancreas and bilateral adrenal glands are normal. Bilateral renal cysts the larger on the right me asuring 2.3 cm. Postoperative change of prior right hemicolectomy with ileocolic anastomosis in the r ight abdomen. No bowel obstruction. Bladder is normal. The uterus is not identified and has likely be en surgically resected. No free intraperitoneal gas or fluid. No pathologically enlarged abdominal or pelvic lymphadenopathy. There is calcified atherosclerosis of the aorta and many of the other arteri es. Interval repair of prior supraumbilical rectus abdominous diastases. There is also suggestion of a prior Chronic subcutaneous scarring along the anterior wall of the left lower quadrant. Grade 1 ant erolisthesis L3 on L4 and L5 on S1. L5 laminectomy with L4-S1 instrumented posterior spinal fusion wi th bilateral vertical jenny and pedicle screw fixation. IMPRESSION: 1. No acute intra-abdominal/pelvic process. 2. Postoperative changes in the abdomen and pelvis as detailed above. Reviewed, dictated and finalized at location A.
--- NOTE | ~2024-12-31 | XR_ITS ---
Portable chest x-ray Comparison: 12/31/2024 Clinical History: Coarse breath sounds Findings: Lungs are clear, without focal consolidation or pleural effusion. Possible COPD. Cardiome diastinal silhouette is stable. Bones and soft tissues are unremarkable. Impression: Clear lungs. Possible COPD. Reviewed, dictated and finalized at location . Impression: Clear lungs. Possible COPD.
[2024-12-31 15:06] VITALS: BP 157/75; PULSE 89; RESP 16; TEMP 37; O2SAT 96
--- OUTSIDE RECORDS SUMMARY | 2024-12-31 16:33 | XMS_ITS | Clinical Summary ---
Author Organization [facility] [employer] Address [address] [place] [address] Care Team Providers Care Puller Out Name Role Phone Angel Guerra MD Primary Care Provider Source Comments [facility],non-owned Affiliates and Associated Physician Practices is amultiple site organization consisting of ambulatory clinics and hospital sitesin [place], [place] and [place]. This disclosure is being madepursuant to the Care Everywhere program and may not contain all information available regarding this patient. Last updated 18.[facility] [employer] Allergies Active Allergy Reactions Criticality Noted Date [...] 11 03/25/2024 Active Blood Glucose Monitoring Suppl (Styloola Flex System) w/Device KIT USE TO CHECK [...] capsule by mouth 3 times daily Active Styloola test strip TEST BLOOD SUGARS THREE TIMES DAILY 08/20/2024 Active TRUEplus 5-Bevel Pen [place] 32G X 4 MM [facility] USE TO INJECT VICTOZA EVERY DAY 12/04/2023 Active albuterol-ipratropi um (Duo-Neb) 0.5-2.5 (3) MG/3ML nebulizer solution USE 1 VIAL VIA NEBULIZER FOUR TIMES DAILY FOR SHORTNESS OF BREATH Active Lancets (EventapUCH DELICA PLUS 33G EXTRA FINE LANCET) USE TO CHECK BLOOD GLUCOSE THREE TIMES DAILY 2023 Active Victoza 18 MG/3ML pen ADMINISTER 1.8 MG UNDER THE SKIN EVERY DAY Active traZODone (Desyrel) 100 MG tablet Take 1 (one) tablet by mouth at bedtime Active azelastine (Astelin) 0.1 % nasal spray [place] 2 (two) sprays into each nostril 2 [...] 11/05/2024 Telephone [facility] [address] [place] [phone] Lee Mendez MD Refill Request (Gamunex IVIG) 10/24/2024 Telephone [facility] [address] [place] [phone] Lee Mendez MD MEDICATION REFILL (IVIG) 10/02/2024 Telephone [facility] [address] [place] [phone] Lee Mendez MD Medication Issue from Last 3 Months Social History Tobacco [...] Comments Blood Pressure 114/70 08/29/2024 10:52 AM RESERVE OPERATOR Pulse 58 08/29/2024 10:52 AM RESERVE OPERATOR Temperature 36.3 C (97.4 F) 08/29/2024 10:52 AM RESERVE OPERATOR Respiratory Rate 18 09/26/2023 2:53 PM RESERVE OPERATOR Oxygen Saturation 93% 08/29/2024 10:52 AM RESERVE OPERATOR Inhaled Oxygen Concentration - - Weight 62.3 kg (137 lb 6.4 oz) 08/29/2024 10:52 AM RESERVE OPERATOR Height 160 cm (5' 3 ) 08/29/2024 10:52 AM RESERVE OPERATOR Body Mass Index 24.34 08/29/2024 10:52 AM RESERVE OPERATOR Plan of Treatment Upcoming Encounters Date Type Department Care Team (Late st Contact Info) Description 2025 3:00 PM RESERVE OPERATOR Office Visit [facility] [address] [place] [address], [place] [address] Lee Mendez MD [address] [place] [address] OF ALLERGY/[place] [address] Health Maintenance Due Date Last Done Comments [...] 60-74 years 1-dose series) 2022 COVID-19 VACCINE (1 - season) 2024 INFLUENZA VACCINE (#1) 2024 9, [...] complete this topic MENINGOCOCCAL (Group B) VACCINE SHARED DECISION-MAKING Aged Out No longer eligible based on patient's age to complete this topic MENINGOCOCCAL GROUPS A/C/Y/W VACCINE Aged Out No longer eligible based on patient's age to complete this topic Care Teams Puller Out Relationship Specialty Start Date End Date Angel Guerra MD [address] [place] [address] PCP - General 01/11/22
--- OUTSIDE RECORDS SUMMARY | 2024-12-31 16:33 | XMS_ITS | Encounter Summary ---
Author Organization [facility] Address [address] [place] [address] Care Team Providers Care Can Stacker Name Role Phone Paulette Pedraza MD Primary Care Provider + [phone] Angel Guerra MD Primary Care Provider + [phone] Encounter Details Date Type Department Care Team (Late st Contact Info) Description 08/05/2021 Telephone [facility] [address] [place] [address] Lee Mendez MD [facility] OF ALLERGY/[place] [address] Social History Tobacco Use Types Packs/Day Years [...] st Contact Info) Description 2025 3:00 PM OUTSOLE COMPRESSOR Office Visit [facility] [address] [place] [address], [place] [address] Lee Mendez MD [address] [place] [address] [address] DIV OF ALLERGY/[place] [address] documented as of this encounter Visit Diagnoses Not on filedocumented in this encounter Care Teams Can Stacker Relationship Specialty Start Date End Date Paulette Pedraza MD PCP - General 12/26/16 01/10/22 Angel Guerra MD [address] [place] [address] PCP - General 01/11/22 documented as of this encounter
--- OUTSIDE RECORDS SUMMARY | 2024-12-31 16:33 | XMS_ITS | Encounter Summary ---
Author Organization [facility] Address [address] [place] [address] Care Team Providers Care Comedian Name Role Phone Paulette Pedraza MD Primary Care Provider + [phone] Angel Guerra MD Primary Care Provider + [phone] Reason for Visit * Reason Onset Date Comments Results 01/15/2019 Encounter Details Date Type Department Care Team (Late st Contact Info) Description 01/15/2019 Telephone [facility] [address] [place] [address] Js Dubon DO [address] [place] [address] Results Social History Tobacco Use Types Packs/Day [...] 5:07 PM CDT Received lab results from [facility]. 01/06/2019 IgG 642, Creatine 0.62, eGFR > [...] st Contact Info) Description 2025 3:00 PM CINDER BLOCK MAKER Office Visit [facility] [address] [place] [address], [place] [address] Lee Mendez MD [address] [place] [address] OF ALLERGY/[place] [address] documented as of this encounter Visit Diagnoses Diagnosis Hypogammaglobulinemia (HCC)- Primary Hypogammaglobulinaemia, unspecified documented in this encounter Care Teams Comedian Relationship Specialty Start Date End Date Paulette Pedraza MD PCP - General 12/26/16 01/10/22 Angel Guerra MD [address] [place] [address] PCP - General 01/11/22 documented as of this encounter
--- OUTSIDE RECORDS SUMMARY | 2024-12-31 16:33 | XMS_ITS | Encounter Summary ---
Author Organization [facility] Address [address] [place] [address] Care Team Providers Care Gill Box Operator Name Role Phone Angel Guerra MD Primary Care Provider Reason for Visit * Reason Onset Date Comments Results 10/01/2023 Encounter Details Date Type Department Care Team (Late st Contact Info) Description 10/01/2023 Telephone [facility] [address], [place] [address] Trisha Bray MD [address] [place] [address] Results Social History Tobacco Use Types Packs/Day [...] mg/dL 302 272 R, CM Resulting Agency [facility] Parameters Male Ref. Range Female Ref. Range 09/26/23 WBC [phone] 2600-90384 8200 Lymphocytes % 21-48 18-54 19 Lymphocytes [phone] 1558 CD3+ % 75-80 76-78 65 CD3 2986-6869 2684-3538 1013 CD3+CD4+ % (CD4 T cells) 34-61 26-62 38 CD3+CD4+ 564-8428 482-9753 592 CD3+CD8+ % (CD8 T cells) 16-38 14-44 27 CD3+CD8+ 314-426 466-4157 421 CD4:CD8 Ratio 0.97-3.71 0.6-4.4 1.41 CD19 [...] T cell maturation subsets in adults of [facility]. Immunobiology, 219(7), 487-496. Matheus Randle, Matheus Ceja, [...] Trisha Bray MD Allergy & Immunology Fellow E WASHER PILER documented in this encounter Plan of Treatment Upcoming Encounters Date Type Department Care Team (Late st Contact Info) Description 2025 3:00 PM WHITE WASHER PILER Office Visit [facility] [address] [place] [address], [place] [address] Lee Mendez MD [address] [place] [address] DIV OF ALLERGY/[place] [address] documented as of this encounter Visit Diagnoses Not on filedocumented in this encounter Care Teams Gill Box Operator Relationship Specialty Start Date End Date Angel Guerra MD [address] [place] [address] PCP - General 01/11/22 documented as of this encounter
--- OUTSIDE RECORDS SUMMARY | 2024-12-31 16:33 | XMS_ITS | Encounter Summary ---
Author Organization [facility] Address [address] [place] [address] Care Team Providers Care Mining Professionals Name Role Phone Paulette Pedraza MD Primary Care Provider + [phone] Angel Guerra MD Primary Care Provider + [phone] Reason for Visit * Reason Onset Date Comments Refill Request 07/25/2018 Encounter Details Date Type Department Care Team (Late Contact Info) Description 07/25/2018 Telephone [facility] [address] [place] [address] Js Khan DO [address] [place] [address] Refill Request Social History Tobacco Use Types [...] AM CDT Received home certification request [facility]. documented in this encounter Plan of Treatment Upcoming Encounters Date Type Department Care Team (Late Contact Info) Description 2025 3:[address]INEER Office Visit [facility] [address] [place] [address], [place] [address] Lee Mendez MD [address] [place] [address] DIV OF ALLERGY/[place] [address] documented as of this encounter Visit Diagnoses Not on filedocumented in this encounter Care Teams Mining Professionals Relationship Specialty Start Date End Date Paulette Pedraza MD PCP - General 12/26/16 01/10/22 Angel Guerra MD [address] [place] [address] PCP - General 01/11/22 documented as of this encounter
--- OUTSIDE RECORDS SUMMARY | 2024-12-31 16:33 | XMS_ITS | Clinical Summary ---
Author Organization [facility] Address [address] [place] [address] Care Team Providers Care Retail Business Manager Name Role Phone Lee Mendez MD Unavailable [phone] Allergies Active Allergy Reactions Criticality Noted [...] :Uncontrolled type 2 diabetes mellitus with hyperglycemia ([facility]) [The details of the medication are not [...] Uncontrolled type 2 diabetes mellitus with hyperglycemia ([facility]) Inject 20 Units into the skin nightly at bedtime. 1 pen 3 04/06/20 Active Additional Information Patient taking differently:20 Units Subcutaneous Nightly at bedtime,For diabetes., Indications: Diabetes Mellitus, Reported on 06/08/2020 insulin lispro (HUMALOG) 100 UNIT/ML injection (VIAL)Indications :Uncontrolled type 2 diabetes mellitus with hyperglycemia ([facility] HHS/HCC) Inject 4-10 Units into the skin [...] Disease, Reported on 06/08/2020 Continuous Blood Gluc Automobile Or Truck Rental Dispatcher ([facility]ASHIER KIT) DeviceIndications :Uncontrolled type 2 diabetes mellitus with hyperglycemia ([facility] HHS/HCC) 1 Device by Does not apply route 4 (four) times a day. Check glucose qid ac & hs insulin dependent uncontrolled 1 Device 04/07/20 Active Insulin Pen Needle (B-D UF III MINI PEN NEEDLES) 31G X 5 MM MiscIndications:U ncontrolled type 2 diabetes mellitus with hyperglycemia ([facility] HHS/HCC) Use with insulin daily 100 Container 3 04/08/20 Active Insulin Syringe-Needle U-100 (INSULIN SYRINGE 1CC/31GX5/16 ) 31G X 5/16 1 ML MiscIndications:D iabetes [...] pecto ris 03/09/2017 Severe persistent asthma, uncomplicated (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) 04/08/20 14 Anxiety 11/17/2013 Asthma, mild intermittent ([facility]) 11/17/2013 Neck pain 11/17/2013 Overview (09/16/2018): [...] Comments Blood Pressure 122/64 09/28/2020 9:38 AM GLOVE FORMER Pulse 85 09/28/2020 9:38 AM [facility]OVE FORMER Temperature 36.9 C (98.4 F) 09/28/2020 9:38 AM GLOVE FORMER Respiratory Rate 18 09/28/2020 9:38 AM [employer]OVE FORMER Oxygen Saturation 94% 09/28/2020 9:38 AM GLOVE FORMER Inhaled Oxygen Concentration - - Weight 81.6 kg (180 lb) 06/08/2020 9:11 AM CDT Height 162.6 cm (5' 4 ) 06/08/2020 9:11 AM CDT Body Mass Index [...] Comments HEMOGLOBIN, GLYCOSYLATED Routine 09/28/2020 11:20 AM [facility] FORMER Uncontrolled type 2 diabetes mellitus with hyperglycemia LIPID PANEL Routine 04/02/2020 11:05 AM CDT Mixed hyperlipidemia COLONOSCOPY Routine 07/15/2015 12:00 AM CDT from Last 3 Months or Most Recently Relevant to Health Maintenance Results * (ABNORMAL) HEMOGLOBIN, GLYCOSYLATED (09/28/2020 11:20 AM [facility] FOR[facility]) HGB A1C 7.5(H) <5.7 % 09/29/2020 1:40 PM GL[facility] FORMER [facility] Comment: INCREASED RISK OF DIABETES <5.7% NON-DIABETES 5.7-6.4% INCREASED RISK FOR FUTURE DIABETES > OR = 6.5 CONSISTENT WITH DIABETES STANDARDS OF MEDICAL CARE IN DIABETES-2010 DIABETES CARE, 33(SUPP 1): S1-S61,2010 09/28/2020 11:2 0 AM [facility] FORMER Paultete Pedraza MD LABORATORY Final Result [facility] [address] [place] [address], * LIPID PANEL (04/02/2020 11:05 AM CDT) CHOLESTEROL 114 <200.0 MG/DL 04/02/2020 2:56 PM CDT [facility] TRIGLYCERIDES 111 <150 MG/DL 04/02/2020 2:56 PM CDT [facility] HDL 50 >40.0 MG/DL 04/02/2020 2:56 PM T [facility] LDL (CALCULATED) 42 <100 MG/DL 04/02/20 20 2:56 PM T [facility] NON HDL CHOLESTEROL 64 <130 MG/DL 04/02 2:56 PM T [facility] CHOL/HDL RATIO 2.3 0.0 - 4.5 04/02/2020 2:56 PM T [facility] VLDL CALCULATION 22 5 - 55 MG/DL 04/02/2020 2:56 PM T [facility] LIPID INTERPRETATION 04/02/2020 2:56 PM T [facility] Comment: NIH CONCENSUS REPORT RECOMMENDATIONS: ADULT CHILD LOW RISK: CHOLESTEROL <200 <170 TRIGLYCERIDE <150 --- HDL >=60 --- LDL <100 <110 BORDERLINE: CHOLESTEROL 200-239 170-199 TRIGLYCERIDE 150-199 --- HDL 40-59 --- LDL 100-159 110-129 HIGH RISK: CHOLESTEROL >=240 >=200 TRIGLYCERIDE >=200 --- HDL <40 --- LDL >=160 >=130 04/02/2020 11:0 5 AM CDT us Paulette Pedraza MD LABORATORY Final Result [facility] [address] [place] [address], * Colonoscopy (07/15/2015 12:00 AM CDT) 07/15/2015 07/15/2015 Narrative [facility] TO EPIC CONVERSION - 07/15/2015 12:00 AM CDT Documented hx of procedure Procedure Note , Generic MD Liane - 08/18/2018 Documented hx of procedure us Generic Conversion Md [facility] PROCEDURE ORDERABLES Final Result Performing Organization Address City/State/[facility] Co de Phone Number [facility] TO EPIC CONVERSION from Last 3 [...] 11:10 AM 10/31/2019 12:32 AM Care Teams Retail Business Manager Relationship Specialty Start Date End Date Lee Mendez MD INTERNAL MEDICINE 09/03/19
--- OUTSIDE RECORDS SUMMARY | 2024-12-31 16:33 | XMS_ITS | Data Portability ---
Author Organization [place] - [facility] OFFICE Address [address] [place] [address] Care Team Providers Care Stamp Press Operator Name Role Phone BROOKLYN FIGUEROA Primary Care Provider [phone] Assessment No assessment recorded. Plan of Treatment Reminders Order Date Submit Date Provider Last Modified By Organization Details Last Modified Time Details Appointments None recorded. Lab None recorded. Referral None recorded. Procedures None recorded. Surgeries None recorded. Imaging electrocar diogram 2017 018 [email or web address] Not available 9 17:12:22 Medication Orders furosemide 40 mg tablet 2017 018 [email or web address] [facility] #[id number], [address], [place], [id number], 0 12:38:49 potassium chloride ER 10 mEq tablet,ext ended release 2017 018 INTERFACE [facility] #[id number], [address], [place], [id number], 8 17:58:14 nitroglyce rin 0.4 mg sublingual tablet 2017 018 [email or web address] Not available 8 10:50:12 metoprolol tartrate 50 mg tablet 2017 018 INTERFACE [facility] #[id number], [address], [place], [id number], 8 17:57:45 atorvastat in 40 mg tablet 2017 018 INTERFACE [facility] #[id number], [address] [facility], [place], [place], [id number], 17:55:31 fenofibrat e 160 mg tablet 2017 INTERFACE [facility] #12594, [address] [facility], [place], [place], [id number], 17:57:46 Patient TargetsNo targets recorded. Patient Instructions Encounter Date Encounter Id Patient Instructions Last Modified By Organization Details Last Modified Time 06/11/2018 [id number] sleep apnea: car e instructions [email or web address] Not available 06/11/2018 17:55:27 learning about low-fat eating [email or web address] Not available 06/11/2018 17:55:27 Scribed by Ronel Su LIFE ENRICHMENT MANAGER-C lsenci Not available 06/11/2018 17:59:45 05/04/2020 [id number] sleep apnea: car e instructions [email or web address] Not available 05/04/2020 13:28:27 learning about low-fat eating [email or web address] Not available 05/04/2020 13:28:27 05/04/2020 Advise d to go to the ER from the office. Pt. verbalized understanding and states she will go to [facility] from the office. Pt took her own transportation to the ER. Weight loss, Exercise advised Education on smoking. Reports a decrease in use to 4-5 per day from 1ppd. Low cholesterol diet advised Low sodium diet advised. [email or web address] Not available 05/04/2020 13:26:21 Scribed by Nicci Bernard, MSN, TECHNOLOGY SERVICES MANAGER, LIFE ENRICHMENT MANAGER-C [email or web address] Not available 05/04/2020 12:48:14 04/04/2021 [id number] sleep apnea: car e instructions [email or web address] Not available 04/04/2021 21:37:57 learning about low-fat eating [email or web address] Not available 04/04/2021 21:37:57 Exercise advised Low cholesterol diet advised Low sodium diet advised [email or web address] Not available 04/04/2021 21:37:07 Scribed by Bhavik Galloway LIFE ENRICHMENT MANAGER-BC Not available 04/04/2021 21:37:20 10/18/2021 [id number] sleep apnea: car e instructions [email or web address] Not available 10/18/2021 16:10:56 learning about low-fat eating [email or web address] Not available 10/18/2021 16:10:56 Exercise advised Low cholesterol diet advised Low sodium diet advised. [email or web address] Not available 10/18/2021 16:11:04 12/21/2022 [id number] Exercise advised Low cholesterol diet advised Low [...] Address Organization Details Recorded Time Hyperlipid emia 28605042 Active 2016 [place] [facility] 4 06:55:10 Edema of lower extremity 768537256 Active 2016 [place] [facility] 7 15:09:10 Palpitatio ns 12823377 Active 2015 [place] [facility] 6 01:56:30 Benign hypertensi on 33581010 Active 2015 [place] - [facility] 4 06:54:58 Disorder of coronary artery 742374790 Active 2015 [place] [facility] 6 01:57:10 Diabetes mellitus 51576884 Active 2015 Insulin dependent [place] [facility] 4 06:55:06 Moderate chronic obstructiv e pulmonary disease 072847155 Active 2015 [place] [facility] 6 01:58:18 Asthma 198154789 Active 2015 [place] [facility] 4 06:55:01 Bronchitis 36843838 Active 2015 [place] [facility] 6 01:58:37 Pneumonia 088777781 Active 2015 [place] [facility] 6 01:58:49 Obstructiv e sleep apnea syndrome 89527470 Active 2015 [place] [facility] 4 06:55:17 Hypothyroi dism 11695066 Active 2015 [place] [facility] 4 06:55:12 Cerebrovas cular accident 158051635 Active 2015 [place] [facility] 6 01:59:26 History of depression 128841357 Active 2015 [place] [facility] 6 01:59:37 Gastroesop hageal reflux disease 298518209 Active 2015 [place] [facility] 6 01:59:48 Degenerati on of interverte bral disc 68679467 Active 2015 [place] [facility] 6 02:00:46 Anxiety 44379768 Active 2015 [place] [...] Not available Not available Not available 02/10/2016 [id number] SNOMED Statu s- Activ e Type- Drug Intol eranc e [place] Gao [facility], [place] - [facility] 6 02:12:55 [...] Updated DateTime 06/11/2018 160.02 cm 32.1 kg/m2 79547.22 g Mariluz Purcell [facility] 06/11/2018 17:26:23 Date Recorded Body weight Heart rate Oxygen saturation Oxygen saturation in Arterial blood by Pulse oximetry Systolic blood pressure Diastolic blood pressure Provider Name and Address Organization Details Last Updated DateTime 0 52390.1 4 g 87 /min 88 % 88 % 128 mm[Hg] 75 mm[Hg] Fuentesesme Vallenicolas [facility] 0 12:31:53 Date Recorded Body weight Heart rate Respiratory rate Oxygen saturation Oxygen saturation in Arterial blood by Pulse oximetry Systolic blood pressure Diastolic blood pressure Provider Name and Address Organization Details Last Updated DateTime 1 71044.5 9 g 79 /min 16 /min 97 % 97 % 104 mm[Hg] 62 mm[Hg] Christal Galloway [facility] 1 16:08:54 Date Recorded Body weight Oxygen saturation Oxygen saturation in Arterial blood by Pulse oximetry Heart rate Systolic blood pressure Diastolic blood pressure Provider Name and Address Organization Details Last Updated DateTime 2 61672.5 1 g 95 % 95 % 78 /min 142 mm[Hg] 80 mm[Hg] [facility] 2 15:53:53 Date Recorded Body height Body mass index (BMI) Body weight Body weight Oxygen saturation Oxygen saturation in Arterial blood by Pulse oximetry Heart rate Systolic blood pressure Diastolic blood pressure Provider Name and Address Organization Details Last Updated DateTime 3 160.02 cm 27.9 kg/m2 06826.5 2 g 30669.8 6 g 90 % 90 % 62 /min 122 mm[Hg] 62 mm[Hg] [facility] 3 17:29:12 Social History None recorded. Functional Status None recorded. Mental Status None recorded. Family History Nothing Reported. Medical History Condition Response Diabetes Y Sleep Apnea Y GERD/Reflux Y Stroke Y Hypertension Y Depression Y COPD Y Asthma Y Gynecological HistoryNo gynecological history recorded. Obstetrics History GPAL:G 0 P 0 0 0 0 Past Encounters Encounter ID Performer Location Encounter Start Date Encounter Closed Date Diagnosis/Indication Diagnosis SNOMED-CT Code Diagnosis ICD10 Code Diagnosis Note [id number] Fuentes Bell MD [facility] [address] [place] [address] 02/18/2016 12:00:26 02/18/2016 13:17:22 Hyperlipidemia 20964271 E78.5 Needs to keep LDL less than 70, and HDL more than 40 Disorder o f coronary artery 191844759 I77.9 Diabetes mellitus 799084 09 E11.9 Obstructiv e sleep apnea syndrome 95603364 G47.33 Atypical chest pain 1025 21157 R07.89 Treadmill Myoview Stress test, has high [place] Risk score. Has Known CAD, or CAD risk equivalent . To look for any ischemia. Carotid bruit 111733690 R09.89 [id number] Fuentes Bell MD [facility] [address] [place] [address] 11/21/2016 09:40:06 11/22/2016 10:41:10 Benign hypertension 24595831 I10 Now well controlled Disorder o f coronary artery 093282346 I77.9 stable no new angina Palpitations 86775190 R0 0.2 Atypical chest pain 1025 59634 R07.89 Hyperlipidemia 54719492 E78.5 Needs to keep LDL less than 70, and HDL more than 40 Diabetes mellitus 659413 09 E11.9 with fair control Obstructiv e sleep apnea syndrome 99762963 G47.33 Carotid bruit 511627976 R09.89 Edema of l ower extremity 141022940 R60.0 Dyslipidemia 581277527 E 78.5 [id number] Fuentes Bell MD [facility] [address] [place] [address] 02/06/2017 14:39:27 02/07/2017 12:40:08 Benign hypertension 61466007 I10 Now well controlled Disorder o f coronary artery 968887981 I77.9 stable angina Dobutamine Myoview stress test, pt can not walk. Has known coronary artery disease, with atypical symptoms now Palpitations 66635886 R0 0.2 Atypical chest pain 1025 97821 R07.89 Hyperlipidemia 80898233 E78.5 Needs to keep LDL less than 70, and HDL more than 40 Diabetes mellitus 161245 09 E11.9 with fair control Obstructiv e sleep apnea syndrome 25988165 G47.33 Carotid bruit 209017435 R09.89 Edema of l ower extremity 221938163 R60.0 Dyslipidemia 956935685 E 78.5 Needs to keep LDL less than 70, and HDL more than 40Will [place] [id number] Fuentes Bell MD [facility] [address] [place] [address] 05/21/2018 15:57:23 05/21/2018 17:01:21 Benign hypertension 57027557 I10 Now well controlled Disorder o f coronary artery 508389586 I77.9 stable angina The patient will be scheduled for left heart catheteriz ation, with coronary angiogram, and possible PTCA/Stent . The procedure was discussed with the patient, and risks, benefits, and alternativ e options were explained. The patient was given informatio n about heart catheteriz ation and interventi onal procedures . The patient agrees to proceed. Palpitations 73397621 R0 0.2 Atypical chest pain 1025 42553 R07.89 Hyperlipidemia 52486225 E78.5 Needs to keep LDL less than 70, and HDL more than 40 Diabetes mellitus 197270 09 E11.9 with fair control Obstructiv e sleep apnea syndrome 32236699 G47.33 Carotid bruit 713998108 R09.89 Edema of l ower extremity 513137234 R60.0 On Lasix Dyslipidemia 290818148 E 78.5 Needs to keep LDL less than 70, and HDL more than 40Will [place] [id number] Fuentes Bell MD [facility] [place] [address] 06/11/2018 16:37:18 10/21/2018 17:12:22 Benign hypertension 75269232 I10 Now well controlled Disorder o f coronary artery 633582237 I77.9 stable angina Had Cardiac cath on 05/27/18 that mild to moderate coronary artery disease. Maximal medical treatment. Atypical chest pain 1025 49422 R07.89 Occasional , but feels that it is related to asthma. Hyperlipidemia 53010319 E78.5 Needs to keep LDL less than 70, and HDL more than 40. 06/11/18 Discontinu ed Simvastati n 20 mg and started Atorvastat in 40 mg.Continu e Fenofibrat e. Diabetes mellitus 052775 09 E11.9 with fair control Obstructiv e sleep apnea syndrome 88133592 G47.33 Wears CPAP machine. Edema of l ower extremity 064805018 R60.0 On Lasix Benign ess ential hypertension 2448989 I10 Well controlled . [id number] Fuentes Bell MD [facility] [place] [address] 05/04/2020 12:06:21 05/04/2020 13:28:36 Disorder of coronary artery 287929688 I77.9 05/04/2020 stable angina Had Cardiac cath on 05/27/18 that mild to moderate coronary artery disease. Maximal medical treatment. Atypical chest pain 1025 72535 R07.89 05/04/2020S OB, Wheezing, coughing. Advised to go to ER.Occasio nal, but feels that it is related to asthma. Hyperlipidemia 34567916 E78.5 05/04/2020L ast LDL on 12/05/2019 71, Continue Atorvastat inTri 192Continu e Fenofibrat e.Needs to keep LDL less than 70, and HDL more than 40. 06/11/18 Discontinu ed Simvastati n 20 mg and started Atorvastat in 40 mg.Continu e Fenofibrat e. Diabetes mellitus 211616 09 E11.9 05/04/2020L ast A1C 8.9 manage per PCP Obstructiv e sleep apnea syndrome 37209529 G47.33 05/04/2020W ears CPAP machine. Edema of l ower extremity 351364923 R60.0 05/04/2020E maria de jesus noted to the lower extremitie s. Is not taking her lasix Benign ess ential hypertension 5864596 I10 05/04/2020W ell controlled . [id number] Alayna Olivo [place] [facility] [address] [place] [address] 04/04/2021 16:02:07 04/04/2021 16:58:51 Atypical chest pain 374190516 R07.89 Dobutamine Stress test, has high [place] Risk score. Has Known CAD, or CAD risk equivalent . To look for any ischemia. Hyperlipidemia 48047047 E78.5 Needs to keep LDL less than 70, and HDL more than 40. 020 LDL 42Continue Lipitor 40 mg Diabetes mellitus 454568 09 E11.9 Treatment and evaluation by primary care doctor Discussed importance of adequate glycemic control to minimize cardiovasc ular disease progressio n, A1C goal of < 7% for type 2 DM. Obstructiv e sleep apnea syndrome 37414663 G47.33 Compliant with nightly CPAP use Edema of l ower extremity 599576309 R60.0 Stable on Lasix Benign ess ential hypertension 9992534 I10 Well controlled on current regimen Dizziness 895523227 R42 Obtain echo to evaluate for structural [place] [id number] Alayna Olivo [facility] [address] [place] [address] 10/18/2021 15:28:55 10/18/2021 16:18:34 Atypical chest pain 788886889 R07.89 Lexiscan Stress test, has high [place] Risk score. Unable to walk a treadmill due to exercise induced chest pain and increased fall risk due to dizziness. Has Known CAD, or CAD risk equivalent . To look for any ischemia. Hyperlipidemia 03892143 E78.5 Needs to keep LDL less than 70, and HDL more than 40. 020 LDL 42Continue Lipitor 40 mg Diabetes mellitus 820567 E11.9 Treatment and evaluation by primary care doctor Discussed importance of adequate glycemic control to minimize cardiovasc ular disease progressio n, A1C goal of < 7% for type 2 DM. Obstructiv e sleep apnea syndrome 57268829 G47.33 Compliant with nightly CPAP use Edema of l ower extremity 460956559 R60.0 Stable on LasixLeg elevationO btain echo to evaluate for structural /functiona l disease. Benign ess ential hypertension 7029332 I10 Well controlled on current regimen Dizziness 674802197 R42 Obtain echo to evaluate for structural /[place] [id number] Fuentes Bell MD [facility] [address] [place] [address] 12/21/2022 16:52:03 12/21/2022 17:58:03 Atypical chest pain 298912473 R07.89 Hyperlipidemia 44387787 E78.5 Needs to keep LDL less than 70, and HDL more than 40. 020 LDL 42Continue Lipitor 40 mg Diabetes mellitus 127766 E11.9 Treatment and evaluation by primary care doctor Discussed importance of adequate glycemic control to minimize cardiovasc ular disease progressio n, A1C goal of < 7% for type 2 DM. Obstructiv e sleep apnea syndrome 58509804 G47.33 Compliant with nightly CPAP use Edema of l ower extremity 513969949 R60.0 Stable on LasixLeg elevationO btain echo to evaluate for structural /functiona l disease. Benign ess ential hypertension 4896000 I10 Well controlled on current regimen Dizziness 779698398 R42 24 Hour Holter, to evaluate arrhythmia [...] Truong Member ID Guarantor Name 06/11/2018 1 [facility] PRIOR TO 04/14/2021 (MEDICAID REPLACEMENT - HMO) Alma Anderson [id number] Alma Anderson 05/04/2020 1 [facility] PRIOR TO 04/14/2021 (MEDICAID REPLACEMENT - HMO) Alma Anderson [id number] Alma Anderson 04/04/2021 1 [facility] PRIOR TO 04/14/2021 (MEDICAID REPLACEMENT - HMO) Alma Anderson [id number] Alma Anderson 10/18/2021 1 [facility] ON OR AFTER 04/14/21 (MEDICAID REPLACEMENT - HMO) Alma Anderson [id number] Alma Anderson 12/21/2022 1 [facility] ON OR AFTER 04/14/21 (MEDICAID REPLACEMENT - HMO) Alma Anderson [id number] Alma Anderson Notes Date Note Type Note [...] function is normal. EF=>55%. Fuentes Bell MD [address] [place], [address], [facility] 06/11/2018 18:28:12 05/04/2020 [...] are sore like when you get the flu , worse with walking. Has TATUM on nightly [...] is normal. EF=>55%. Fuentes Bell MD [address] [place], [address], [facility] 05/04/2020 13:28:33 04/04/2021 text/html [...] : Right atrial enlargement, probably old anterior TN EKG 05/21/18 : Left posterior hemiblock. Possibly [...] ischemia nuclear portion is pending. [place] [facility] 04/11/2021 14:34:35 10/18/2021 text/html 10/18/20CC : Car diac follow up, chest ypaj31-trug-tst white woman with a PMH of CAD, [...] : Right atrial enlargement, probably old anterior TN EKG 05/21/18 : Left posterior hemiblock. Possibly [...] ischemia nuclear portion is pending. [place] [facility] 10/29/2021 19:15:52 12/21/2022 text/html 12/21/22CC : Car diac follow up, Qcuryiyisah54-wqwj-fkb white woman with a PMH of CAD, [...] : Right atrial enlargement, probably old anterior TN EKG 05/21/18 : Left posterior hemiblock. Possibly [...] nuclear portion is pending. Fuentes Bell MD [address] [place], [address], [facility] 12/21/2022 17:53:36 OBGyn Episode No OBEpisode recorded.
--- OUTSIDE RECORDS SUMMARY | 2024-12-31 16:33 | XMS_ITS | Encounter Summary ---
Author Organization [facility] Address [address] [facility] [place] [address] Care Team Providers Care Presiding Steward Name Role Phone Angel Guerra MD Primary Care Provider [phone] Reason for Visit * Reason Onset Date Comments Medication Problem 10/04/2023 Encounter Details Date Type Department Care Team (Late st Contact Info) Description 10/04/2023 Telephone [facility] [address] [facility], [facility] [place] [address] Trisha Bray MD [address] [place], [place] [id number] Medication Problem Social History Tobacco Use Types [...] Trisha Bray MD Allergy & Immunology Fellow PENDENT VIDEO PRODUCER documented in this encounter Plan of Treatment Upcoming Encounters Date Type Department Care Team (Late st Contact Info) Description 2025 3:00 PM INDEPENDENT VIDEO PRODUCER Office Visit [facility] [address] [place] [address], [place] [address] Lee Mendez MD [address] [place] [address] [address] DIV OF ALLERGY/[place] [address] documented as of this encounter Visit Diagnoses Not on filedocumented in this encounter Care Teams Presiding Steward Relationship Specialty Start Date End Date Angel Guerra MD [address] [place] [address] PCP - General 01/11/22 documented as of this encounter
--- OUTSIDE RECORDS SUMMARY | 2024-12-31 16:33 | XMS_ITS | Encounter Summary ---
Author Organization [facility] Address [address] [facility] [place] [address] Care Team Providers Care Typing Pool Supervisor Name Role Phone Angel Guerra MD Primary Care Provider Reason for Visit * Reason Onset Date Comments Refill Request 09/26/2023 Encounter Details Date Type Department Care Team (Late st Contact Info) Description 09/26/2023 Telephone [facility] [address] [facility], [facility] [place] [address] Trisha Bray MD [address] [place] [address] Refill Request Social History Tobacco Use Types [...] verbal order to renew gamunex C 50g i1vcrjl, and add 500cc NS bolus Trisha Bray MD Allergy & Immunology Fellow DULING COORDINATOR documented in this encounter Plan of Treatment Upcoming Encounters Date Type Department Care Team (Late st Contact Info) Description 2025 3:00 PM SCHEDULING COORDINATOR Office Visit [facility] [address] [place] [address], [place] [address] Lee Mendez MD [address] [place] [address] DIV OF ALLERGY/[place] [address] documented as of this encounter Visit Diagnoses Not on filedocumented in this encounter Care Teams Typing Pool Supervisor Relationship Specialty Start Date End Date Angel Guerra MD [address] [place] [address] PCP - General 01/11/22 documented as of this encounter
--- OUTSIDE RECORDS SUMMARY | 2024-12-31 16:33 | XMS_ITS | Encounter Summary ---
Author Organization [facility] Address [address] [place] [address] Care Team Providers Care Crusher Setter Name Role Phone Paulette Pedraza MD Primary Care Provider [phone] New Referring, Provider Primary Care Provider Un available Paulette Pedraza MD Unavailable [phone] Lee Mendez MD Unavailable [phone] Paulette Pedraza MD Primary Care Provider + [phone] Encounter Details Date Type Department Care Team (Late st Contact Info) Description 05/15/2018 Abstract [facility] Family & Internal Medicine [facility] [address] [place] [address] [place] [address] [place] [address] Social History Tobacco Use Types [...] on filedocumented in this encounter Care Teams Crusher Setter Relationship Specialty Start Date End Date Paulette Pedraza MD PCP - General 11/28/16 09/01/19 New Referring, Provider PCP - General UNKNOWN PHYSICIAN SPECIALTY 09/02/19 02/09/20 Paulette Pedraza MD PCP - General INTERNAL MEDICINE 02/10/20 01/04/21 Paulette Pedraza MD 09/02/19 01/04/21 Lee Mendez MD INTERNAL MEDICINE 09/03/19 documented as of this encounter
--- OUTSIDE RECORDS SUMMARY | 2024-12-31 16:33 | XMS_ITS | Encounter Summary ---
Author Organization [facility] Address [address] [facility] [place] [address] Care Team Providers Care Editing Internship Name Role Phone Paulette Pedraza MD Primary Care Provider + [phone] Angel Guerra MD Primary Care Provider + [phone] Encounter Details Date Type Department Care Team (Late st Contact Info) Description 08/09/2021 Telephone [facility] [address] [place] [address] Lee Mendez MD [facility] OF ALLERGY/[place] [address] Social History Tobacco Use Types Packs/Day Years [...] needing to be certified. Contact number is [phone]. documented in this encounter Plan of Treatment Upcoming Encounters Date Type Department Care Team (Late st Contact Info) Description 2025 3:00 PM BRAZING FURNACE OPERATOR Office Visit [facility] [address] [place] [address], [place] [address] Lee Mendez MD [address] [place] [address] DIV OF ALLERGY/[place] [address] documented as of this encounter Visit Diagnoses Not on filedocumented in this encounter Care Teams Editing Internship Relationship Specialty Start Date End Date Paulette Pedraza MD PCP - General 12/26/16 01/10/22 Angel Guerra MD [address] [place] [address] PCP - General 01/11/22 documented as of this encounter
--- OUTSIDE RECORDS SUMMARY | 2024-12-31 16:33 | XMS_ITS | Encounter Summary ---
Author Organization [facility] Address [address] [place] [address] Care Team Providers Care Warehouse Sorter Name Role Phone Paulette Pedraza MD Primary Care Provider + [phone] Angel Guerra MD Primary Care Provider + [phone] Encounter Details Date Type Department Care Team (Late st Contact Info) Description 07/27/2021 Telephone [facility] [address] [place] [address] Lee Mendez MD [facility] OF [place]ERGY/[place] [address] Social History Tobacco Use Types Packs/Day Years [...] patient today for her telephone appt. At [phone]. Thank you documented in this encounter Plan of Treatment Upcoming Encounters Date Type Department Care Team (Late st Contact Info) Description 2025 3:00 PM ELASTIC ATTACHER CHAINSTITCH Office Visit [facility] [address] [place] [address], [place] [address] Lee Mendez MD [address] [place] [address] [address] DIV OF ALLERGY/[place] [address] documented as of this encounter Visit Diagnoses Not on filedocumented in this encounter Care Teams Warehouse Sorter Relationship Specialty Start Date End Date Paulette Pedraza MD PCP - General 12/26/16 01/10/22 Angel Guerra MD [address] [place] [address] PCP - General 01/11/22 documented as of this encounter
--- OUTSIDE RECORDS SUMMARY | 2024-12-31 16:33 | XMS_ITS | Encounter Summary ---
Author Organization [facility] Address [address] [facility] [place] [address] Care Team Providers Care All Round Butcher Name Role Phone Paulette Pedraza MD Primary Care Provider + [phone] Angel Guerra MD Primary Care Provider + [phone] Encounter Details Date Type Department Care Team (Late st Contact Info) Description 06/15/2020 Telephone [facility] [address] [place] [address] Lee Mendez MD [address] OF ALLERGY/[place] [address] Social History Tobacco Use Types Packs/Day Years [...] Please call. Thanks. Fernie Call Back number: [phone] documented in this encounter Plan of Treatment Upcoming Encounters Date Type Department Care Team (Late st Contact Info) Description 2025 3:00 PM SPECTRAL SCIENTIST Office Visit [facility] [address] [place] [address], [place] [address] Lee Mendez MD [address] [place] [address] DIV OF ALLERGY/[place] [address] documented as of this encounter Visit Diagnoses Not on filedocumented in this encounter Care Teams All Round Butcher Relationship Specialty Start Date End Date Paulette Pedraza MD PCP - General 12/26/16 01/10/22 Angel Guerra MD [address] [place] [address] PCP - General 01/11/22 documented as of this encounter
--- OUTSIDE RECORDS SUMMARY | 2024-12-31 16:33 | XMS_ITS | Encounter Summary ---
Author Organization [facility] Address [address] [place] [address] Care Team Providers Care Mri Technician Name Role Phone Paulette Pedraza MD Primary Care Provider [phone] New Referring, Provider Primary Care Provider Un available Paulette Pedraza MD Unavailable [phone] Lee Mendez MD Unavailable [phone] Paulette Pedraza MD Primary Care Provider + [phone] Encounter Details Date Type Department Care Team (Latest Contact Info) Description 06/27/2018 Abstract [facility] [place] [address] [place] [address] Social History Tobacco Use Types Packs/Day Years [...] on filedocumented in this encounter Care Teams Mri Technician Relationship Specialty Start Date End Date Paulette Pedraza MD PCP - General 11/28/16 09/01/19 New Referring, Provider PCP - General UNKNOWN PHYSICIAN SPECIALTY 09/02/19 02/09/20 Paulette Pedraza MD PCP - General INTERNAL MEDICINE 02/10/20 01/04/21 Paulette Pedraza MD 09/02/19 01/04/21 Lee Mendez MD INTERNAL MEDICINE 09/03/19 documented as of this encounter
--- NOTE | 2024-12-31 18:09 | ED.SOB ---
HPI - SOB/Dyspnea General Chief Complaint: Shortness of Breath/Dyspnea <BROOKE Kim Last Filed: 12/31/24 18:16> Stated Complaint: dyspnea <BROOKE Kim Last Filed: 12/31/24 18:16> Time Seen by Provider: 12/31/24 18:09 <BROOKE Kim Last Filed: 12/31/24 18:16> Focused HPI: Patient is a 64 y/o female, with PMH of CVA, COPD, who presents to the ED with c/o URI sx's. Patient reports she has been sick since Sunday night with productive cough, congestion, nausea, diarrhea, headache, weakness, lightheadedness , palpitations. Has been feeling increasingly short of breath, worse with exertion. Has been using her inhalers at home without improvement. Reports fevers up to 101 degree F, today. Denies significant chest pain. Denies sick contacts. She notes she was admitted to the hospital last month for shortness of breath, respiratory failure. GENERAL: Appears older than stated age, and in no acute distress. HEAD: Normocephalic, atraumatic. CHEST: Diffuse rhonchi in bases joe. Diffuse inspiratory and expiratory wheezing bilaterally. Frequent coughing. HEART: Regular rate and rhythm.? NEURO: ?Alert and oriented x3. Patient screened in triage and initial orders placed.? ?Additional care and disposition to be based upon?diagnostic testing and treatment. <BROOKE Kim Last Filed: 12/31/24 18:16> Source: patient <BROOKE Kim Last Filed: 12/31/24 18:16> Mode of arrival: ambulatory <BROOKE Kim Last Filed: 12/31/24 18:16> Limitations: no limitations <BROOKE Kim Last Filed: 12/31/24 18:16> Related Data Home Medications: Home Medications ?Medication ?Instructions ?Recorded ?Confirmed ?Last Taken ?Type atorvastatin 40 mg tablet 40 mg PO HS 09/18/19 12/06/24 12/04/24 History famotidine 40 mg tablet 40 mg PO DAILY 09/18/19 12/06/24 12/05/24 History fenofibrate 160 mg tablet 160 mg PO HS 09/18/19 12/06/24 12/04/24 History levothyroxine 50 mcg tablet 50 mcg PO DAILY 09/18/19 12/06/24 12/05/24 History metoprolol tartrate 50 mg tablet 25 mg PO BID 09/18/19 12/06/24 12/05/24 History aspirin 81 mg tablet,delayed 81 mg PO HS 11/25/19 12/06/24 12/05/24 History release estradiol 1 mg tablet 0.5 mg PO HS 05/04/20 12/06/24 12/04/24 History potassium chloride 10 mEq 10 meq PO DAILY 05/04/20 12/06/24 12/05/24 History tablet,extended release ropinirole 0.5 mg tablet 0.5 mg PO TID 05/04/20 12/06/24 12/05/24 History immune glob G 40 gram/400 500 ml IV MONTHLY 06/26/22 12/06/24 12/05/24 History mL(10%)-gly-IgA ave 46 mcg/mL injection soln (Gamunex-C) fluoxetine 20 mg tablet 20 mg PO HS 01/27/23 12/06/24 12/04/24 History gabapentin 400 mg capsule 400 mg PO BID 01/27/23 12/06/24 12/05/24 History (Neurontin) budesonide 160 mcg-glycopyr 9 2 inh inhalation BID 08/23/23 12/06/24 12/05/24 History mcg-formot 4.8 mcg/actuation HFA inhaler (Breztri Aerosphere) liraglutide 0.6 mg/0.1 mL (18 mg/3 1.8 mg subcut DAILY 08/23/23 12/06/24 12/05/24 History mL) subcutaneous pen injector (Victoza 2-Sean) trazodone 100 mg tablet 100 mg PO HS 10/11/23 12/06/24 12/04/24 History ipratropium 0.5 mg-albuterol 3 mg 3 ml inhalation Q6H PRN shortness 11/07/24 12/06/24 12/05/24 History (2.5 mg base)/3 mL nebulization of breath or wheezing soln <BROOKE Kim Last Filed: 12/31/24 18:16> Allergies/Adverse Reactions: Allergies Allergy/AdvReac Type Severity Reaction Status Date / Time Sulfa (Sulfonamide Allergy Unknown Nausea and Verified 11/07/24 08:42 Antibiotics) Vomiting <BROOKE Kim Last Filed: 12/31/24 18:16> Review of Systems Review of Systems: All systems reviewed & are unremarkable except as noted in HPI and below <Essie Villagran PA-C - Last Filed: 01/01/25 02:00> PMFSH Past Medical History Medical History: Medical History Stroke ~14 mon ago Hyperlipidemia Hypertension Thyroid disease Anxiety Diabetes mellitus Asthma RLS (restless legs syndrome) CVID (common variable immunodeficiency) Allergic rhinitis Asthma TATUM (obstructive sleep apnea) Tobacco abuse <BROOKE Kim Last Filed: 12/31/24 18:16> Surgical History Surgical History: Surgical History History of incisional hernia repair Laparoscopic 5 cm reducible recurrent incisional hernia repair with mesh, da Kiko assisted on 08/29/23 [facility] H/O hemicolectomy 01/08/2022 <BROOKE Kim Last Filed: 12/31/24 18:16> Family History Family History: Family History Sibling Cancer Mother Cancer of kidney Other Cerebrovascular accident Diabetes mellitus Heart disease Hypertension <BROOKE Kim Last Filed: 12/31/24 18:16> Social History Social History: Social History Smoking packs per day: 0.5 Smoking cigarettes per day: 10.0 Years smoked: 40 Smoking pack-years: 20.00 Smoking status: Current every day smoker Tobacco type: cigarettes Second hand tobacco smoke exposure: No Additional smoking assessment comments: Smoking 0.5ppd now. Alcohol intake: never Drinks per week: 0 Substance use: current Substance use type: marijuana Other substance usage details: Gummies Last use: 12/04/24 Do You Feel Safe in your Home?: Yes Lack of Transportation: No Lack of Food: Never True Current Housing: I Have Housing Concerned About Future Housing: No Difficulty Paying Gas/Electric Bills: No Difficulty Paying for Meds: No Currently Unemployed: No Education: Bachelor's Degree Difficulty w/ Childcare or Family Care: No Living arrangements: alone Gender identity (if verbalized by the patient): Female Spiritual care concerns: No <Marilin Bryant PA-C - Last Filed: 12/31/24 18:16> Exam Narrative: GENERAL: Well-appearing, well-nourished, and in no acute distress. HEAD: Normocephalic, atraumatic. EYES: EOMI. ENT: Nares clear, no rhinorrhea or epistaxis. Mucous membranes moist. Oropharynx without tonsillar hypertrophy exudate or other lesions. Bilateral TMs pearly villafuerte non-bulging NECK: Supple. No adenopathy or masses. CHEST: No respiratory distress. Diffuse expiratory wheezing. No rales or rhonchi HEART: Regular rate and rhythm. No murmur heard. Normal peripheral pulses. EXTREMITIES: Normal range of motion. No edema. SKIN: Warm, dry, no rash. NEURO: No focal deficits. Alert and oriented x3. PSYCH: Normal mood and affect <Essie Villagran PA-C - Last Filed: 01/01/25 02:00> Course Course Emergency Course: Patient and family updated on workup and recommendation for admission. <BROOKE Garcia Last Filed: 01/01/25 02:00> Consultations Consultation #1: Spoke with hospitalist about patient and workup who accepts admission <BROOKE Garcia Last Filed: 01/01/25 02:00> Date: 01/01/25 <BROOKE Garcia Last Filed: 01/01/25 02:00> Vital Signs Vital signs: Vital Signs Temperature 98.6 F 12/31/24 15:06 Pulse Rate 89 12/31/24 15:06 Respiratory Rate 16 12/31/24 15:06 Blood Pressure 157/75 H 12/31/24 15:06 Pulse Oximetry 96 12/31/24 15:06 Temperature 97.5 F L 12/31/24 18:49 Pulse Rate 107 H 01/01/25 00:32 Respiratory Rate 22 H 01/01/25 00:32 Blood Pressure 138/72 12/31/24 18:49 Pulse Oximetry 97 12/31/24 23:46 Oxygen Delivery Nasal Cannula 12/31/24 23:46 Oxygen Flow Rate 2 12/31/24 23:46 <Marilin Bryant PA-C - Last Filed: 12/31/24 18:16> Vital Signs Temperature 98.6 F 12/31/24 15:06 Pulse Rate 89 12/31/24 15:06 Respiratory Rate 16 12/31/24 15:06 Blood Pressure 157/75 H 12/31/24 15:06 Pulse Oximetry 96 12/31/24 15:06 Temperature 97.5 F L 12/31/24 18:49 Pulse Rate 107 H 01/01/25 00:32 Respiratory Rate 22 H 01/01/25 00:32 Blood Pressure 138/72 12/31/24 18:49 Pulse Oximetry 97 12/31/24 23:46 Oxygen Delivery Nasal Cannula 12/31/24 23:46 Oxygen Flow Rate 2 12/31/24 23:46 <Essie Villagran PA-C - Last Filed: 01/01/25 02:00> MDM - SOB/Dyspnea MDM Narrative Medical decision making narrative: MSE by MERISSA in triage. <Marilin Bryant PA-C - Last Filed: 12/31/24 18:16> MSE by MERISSA in triage. Patient presents to the emergency department for cold symptoms ongoing over the last several days. She is afebrile and nontoxic appearing. Oxygen saturation noted to be around 90 on room air. Placed on 2 L nasal cannula. CBC without leukocytosis. Shows hemoconcentration. Metabolic panel with hyponatremia with sodium of 127. BNP is not concerning the elevated. Baseline troponin is negative. Influenza, RSV, COVID screens are negative. Chest x-ray shows a possible small right pleural effusion. Patient updated on her workup. Still with diffuse wheezing after nebulizer treatment, steroid, magnesium. Will admit for further management <Essie Villagran PA-C - Last Filed: 01/01/25 02:00> Differential Diagnosis Differential diagnosis: Likely acute exacerbation of chronic obstructive airways disease, congestive heart failure and community acquired pneumonia <Essie Villagran PA-C - Last Filed: 01/01/25 02:00> Lab Data Attestation: I reviewed the patient's lab results. <Essie Villagran PA-C - Last Filed: 01/01/25 02:00> Result diagrams: 12/31/24 23:35 12/31/24 23:35 <Marilin Bryant PA-C - Last Filed: 12/31/24 18:16> Labs: Lab Results 12/31/24 01/01/25 Range/Units 23:35 01:05 WBC 6.4 (4.5-10.0) K/mm3 RBC 5.78 H (4.2-5.4) M/mm3 Hgb 16.2 H D (12.0-15.0) g/dL Hct 46.6 (37.0-47.0) % MCV 80.6 (80-100) fl MCH 28.0 (26-34) pg MCHC 34.8 (32-36) g/dl RDW 13.2 (11.5-14.5) % Plt Count 207 (150-375) k/mm3 MPV 9.1 (7.4-10.4) fl Immature Gran % (Auto) 0.3 (0-0.5) % Neut % (Auto) 71.0 (45.5-73.1) % Lymph % (Auto) 17.4 L (18.3-44.2) % Madison % (Auto) 9.4 H (2.6-8.5) % Eos % (Auto) 1.4 (0-4.4) % Baso % (Auto) 0.5 (0.2-1.2) % Lymph # (Auto) 1.11 (0.9-3.2) K/mm3 Madison # (Auto) 0.6 (0.1-0.6) K/mm3 Eos # (Auto) 0.1 (0-0.3) K/mm3 Baso # (Auto) 0.0 (0.0-0.1) K/mm3 Abs Immat Gran (auto) 0.02 (0.00-0.031) K/mm3 Absolute Neuts (auto) 4.5 (1.3-6.7) K/mm3 Absolute Nucleated RBC 0.000 (0.0-0.012) K/mm3 Nucleated RBC % 0.0 (0.0-0.2) % PT 12.5 (11.1-14.7) Seconds INR 0.9 APTT 23.7 (22.3-36.8) Seconds Sodium 127 L (137-145) mmol/L Potassium 4.2 (3.4-5.0) mmol/L Chloride 92 L (98-107) mmol/L Carbon Dioxide 25 (22-30) mmol/L Anion Gap 10 (4-12) mmol/L BUN 14 D (7-17) mg/dL Creatinine 0.50 L (0.7-1.0) mg/dL Estim Creat Clear Calc 80 ml/min Estimated GFR > 60 (59 - ) Glucose 196 H (65-110) mg/dL POC Capillary Glucose 167 H (65-105) mg/dl Calcium 9.7 (8.4-10.2) mg/dL Magnesium 1.5 L (1.6-2.3) mg/dL Total Bilirubin 0.6 (0.2-1.3) mg/dL AST 31 (14-36) U/L ALT 31 (6-35) U/L Alkaline Phosphatase 100 (38-126) U/L Troponin I < 0.012 (0.000-0.034) ng/mL NT-Pro-B Natriuret Pep 136 H (19.9-100) pg/mL Total Protein 8.0 (6.3-8.2) g/dL Albumin 4.5 (3.5-5.1) g/dL Influenza A (RT-PCR) Negative (Negative) Influenza B (RT-PCR) Negative (Negative) RSV (RT-PCR) Negative (Negative) SARS-CoV-2 RNA (RT-PCR) Negative (Negative) <Marilin Bryant PA-C - Last Filed: 12/31/24 18:16> Lab Results 12/31/24 01/01/25 Range/Units 23:35 01:05 WBC 6.4 (4.5-10.0) K/mm3 RBC 5.78 H (4.2-5.4) M/mm3 Hgb 16.2 H D (12.0-15.0) g/dL Hct 46.6 (37.0-47.0) % MCV 80.6 (80-100) fl MCH 28.0 (26-34) pg MCHC 34.8 (32-36) g/dl RDW 13.2 (11.5-14.5) % Plt Count 207 (150-375) k/mm3 MPV 9.1 (7.4-10.4) fl Immature Gran % (Auto) 0.3 (0-0.5) % Neut % (Auto) 71.0 (45.5-73.1) % Lymph % (Auto) 17.4 L (18.3-44.2) % Madison % (Auto) 9.4 H (2.6-8.5) % Eos % (Auto) 1.4 (0-4.4) % Baso % (Auto) 0.5 (0.2-1.2) % Lymph # (Auto) 1.11 (0.9-3.2) K/mm3 Madison # (Auto) 0.6 (0.1-0.6) K/mm3 Eos # (Auto) 0.1 (0-0.3) K/mm3 Baso # (Auto) 0.0 (0.0-0.1) K/mm3 Abs Immat Gran (auto) 0.02 (0.00-0.031) K/mm3 Absolute Neuts (auto) 4.5 (1.3-6.7) K/mm3 Absolute Nucleated RBC 0.000 (0.0-0.012) K/mm3 Nucleated RBC % 0.0 (0.0-0.2) % PT 12.5 (11.1-14.7) Seconds INR 0.9 APTT 23.7 (22.3-36.8) Seconds Sodium 127 L (137-145) mmol/L Potassium 4.2 (3.4-5.0) mmol/L Chloride 92 L (98-107) mmol/L Carbon Dioxide 25 (22-30) mmol/L Anion Gap 10 (4-12) mmol/L BUN 14 D (7-17) mg/dL Creatinine 0.50 L (0.7-1.0) mg/dL Estim Creat Clear Calc 80 ml/min Estimated GFR > 60 (59 - ) Glucose 196 H (65-110) mg/dL POC Capillary Glucose 167 H (65-105) mg/dl Calcium 9.7 (8.4-10.2) mg/dL Magnesium 1.5 L (1.6-2.3) mg/dL Total Bilirubin 0.6 (0.2-1.3) mg/dL AST 31 (14-36) U/L ALT 31 (6-35) U/L Alkaline Phosphatase 100 (38-126) U/L Troponin I < 0.012 (0.000-0.034) ng/mL NT-Pro-B Natriuret Pep 136 H (19.9-100) pg/mL Total Protein 8.0 (6.3-8.2) g/dL Albumin 4.5 (3.5-5.1) g/dL Influenza A (RT-PCR) Negative (Negative) Influenza B (RT-PCR) Negative (Negative) RSV (RT-PCR) Negative (Negative) SARS-CoV-2 RNA (RT-PCR) Negative (Negative) <Essie Villagran PA-C - Last Filed: 01/01/25 02:00> Imaging Data Radiologist's impression: ITS Impressions Chest X-Ray 12/31/24 19:19 IMPRESSION: Small right-sided pleural effusion without focal infiltrate. <Essie Villagran PA-C - Last Filed: 01/01/25 02:00> Critical Care Time Critical Care Time Critical Care Time: Yes <Essie Villagran PA-C - Last Filed: 01/01/25 02:00> Total Critical Care Time: 35 <BROOKE Garcia Last Filed: 01/01/25 02:00> Discharge Plan Discharge Clinical Impression: Acute hypoxic respiratory failure, Hyponatremia <BROOKE Kim Last Filed: 12/31/24 18:16> Patient Disposition: Still a Patient <BROOKE Kim Last Filed: 12/31/24 18:16> Condition: Stable <BROOKE Kim Last Filed: 12/31/24 18:16> Patient Language: [place] <Marilin Bryant PA-C - Last Filed: 12/31/24 18:16> Prescriptions: No Action ipratropium-albuterol 0.5 mg-3 mg(2.5 mg base)/3 mL solution for nebulization 3 ml inhalation Q6H PRN (Reason: shortness of breath or wheezing) atorvastatin 40 mg tablet 40 mg PO HS famotidine 40 mg tablet 40 mg PO DAILY fenofibrate 160 mg tablet 160 mg PO HS levothyroxine 50 mcg tablet 50 mcg PO DAILY metoprolol tartrate 50 mg tablet 25 mg PO BID Rx Instructions: pt stats, takes half in the morning and half at night. aspirin 81 mg tablet,delayed release (DR/EC) 81 mg PO HS Gamunex-C 40 gram/400 mL (10 %) solution 500 ml IV MONTHLY Patient Comments: Pt had an issue with insurance, is working on getting next dose scheduled, okay with not recieving during this admission Rx Instructions: 50g q28 days potassium chloride 10 mEq tablet extended release 10 meq PO DAILY estradiol 1 mg tablet 0.5 mg PO HS ropinirole 0.5 mg Tablet 0.5 mg PO TID gabapentin [Neurontin] 400 mg capsule 400 mg PO BID fluoxetine 20 mg tablet 20 mg PO HS liraglutide [Victoza 2-Sean] 0.6 mg/0.1 mL (18 mg/3 mL) Pen Injector 1.8 mg SUBCUT DAILY Breztri Aerosphere 160-9-4.8 mcg/actuation HFA aerosol inhaler 2 inh INHALATION BID oxycodone-acetaminophen [Percocet] 10-325 mg tablet 1 - 2 tablet PO Q4H PRN (Reason: pain) Qty: 30 0RF trazodone 100 mg tablet 100 mg PO HS levofloxacin 500 mg tablet 500 mg PO DAILY Qty: 5 0RF prednisone 20 mg tablet 20 mg PO DAILY Qty: 6 0RF albuterol sulfate 2.5 mg /3 mL (0.083 %) solution for nebulization 2.5 mg inhalation QID PRN (Reason: shortness of breath or wheezing) Qty: 360 3RF roflumilast [Daliresp] 500 mcg tablet See Rx Instructions .ROUTE .COMPLEX Qty: 90 0RF Dose Instruction: TAKE 1 TABLET BY MOUTH DAILY Rx Instructions: TAKE 1 TABLET BY MOUTH DAILY. Need appt for refills <Marilni Bryant PA-C - Last Filed: 12/31/24 18:16> Follow-up/Referrals: George,Corey Peralta, DROP WIRER [Primary Care Provider] - <Marilin Bryant PA-C - Last Filed: 12/31/24 18:16>
[2024-12-31 18:49] VITALS: BP 138/72; PULSE 90; RESP 20; TEMP 36.4; O2SAT 92
[2024-12-31 22:50] VITALS: O2SAT 92
[2024-12-31 23:44] VITALS: O2SAT 97
[2024-12-31 23:45] LABS: Basophils Percent Auto 0.5 % (0.2-1.2); Eosinophils Absolute Auto 0.1 K/mm3 (0-0.3); Eosinophils Percent Auto 1.4 % (0-4.4); Hematocrit 46.6 % (37.0-47.0); Hemoglobin 16.2 g/dL (12.0-15.0); Immature Granulocyte Absolute 0.02 K/mm3 (0.00-0.031); Immature Granulocyte Percent A 0.3 % (0-0.5); Lymphocytes Absolute Auto 1.11 K/mm3 (0.9-3.2); Lymphocytes Percent Auto 17.4 % (18.3-44.2); Mean Corpuscular HGB Conc 34.8 g/dl (32-36); Mean Corpuscular Volume 80.6 fl (80-100); Mean Platelet Volume 9.1 fl (7.4-10.4); Monocytes Absolute Auto 0.6 K/mm3 (0.1-0.6); Monocytes Percent Auto 9.4 % (2.6-8.5); Neutrophils Absolute Auto 4.5 K/mm3 (1.3-6.7); Platelet Count Result 207 k/mm3 (150-375); Red Blood Count 5.78 M/mm3 (4.2-5.4); Red Cell Distribution Width 13.2 % (11.5-14.5); White Blood Count 6.4 K/mm3 (4.5-10.0)
[2024-12-31 23:46] VITALS: O2SAT 97
[2024-12-31 23:57] LABS: Alanine Aminotransferase 31 U/L (6-35); Albumin Level 4.5 g/dL (3.5-5.1); Alkaline Phosphatase 100 U/L (38-126); Anion Gap 10 mmol/L (4-12); Aspartate Amino Transferase 31 U/L (14-36); Bilirubin,Total 0.6 mg/dL (0.2-1.3); Blood Urea Nitrogen 14 mg/dL (7-17); Calcium 9.7 mg/dL (8.4-10.2); Carbon Dioxide 25 mmol/L (22-30); Chloride 92 mmol/L (98-107); Estimated CRCL calculation 80 ml/min; Estimated Glomerular Filt Rate > 60; Glucose 196 mg/dL (65-110); Magnesium 1.5 mg/dL (1.6-2.3); Potassium 4.2 mmol/L (3.4-5.0); Sodium 127 mmol/L (137-145)
[2025-01-01] VITALS (18 sets, daily range): BP systolic 116–159; BP diastolic 46–81; PULSE 70–107; RESP 16–22; TEMP 36.1–36.8; O2SAT 91–100; BMI 27.1
[2025-01-01 00:02] LABS: INR 0.9; Prothrombin Time 12.5 Seconds (11.1-14.7)
[2025-01-01 00:03] LABS: Partial Thromboplastin Time 23.7 Seconds (22.3-36.8)
[2025-01-01 00:08] LABS: NT Pro B Type Natriuretic Pept 136 pg/mL (19.9-100); Troponin I < 0.012 ng/mL (0.000-0.034)
[2025-01-01 00:23] LABS: Influenza A QL RT-PCR Negative (Negative); Influenza B QL RT-PCR Negative (Negative); RSV RNA, RT-PCR Negative (Negative); SARS-CoV-2 RNA PCR Negative (Negative)
--- OUTSIDE RECORDS SUMMARY | 2025-01-01 00:30 | XMS_ITS | Encounter Summary ---
Author Organization [facility] Address [address] [address] Care Team Providers Care Income Tax Expert Name Role Phone Paulette Pedraza MD Primary Care Provider + [phone] Angel Guerra MD Primary Care Provider + [phone] Encounter Details Date Type Department Care Team (Late st Contact Info) Description 08/09/2021 Telephone [facility] [address] [place] [address] Lee Mendez MD [facility] OF ALLERGY/[place] [address] Social History Tobacco Use Types Packs/Day Years [...] needing to be certified. Contact number is [phone]. 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
--- OUTSIDE RECORDS SUMMARY | 2025-01-01 00:30 | XMS_ITS | Encounter Summary ---
Author Organization [facility] Address [address] [place] [address] Care Team Providers Care Regional Property Manager Name Role Phone Angel Guerra MD Primary Care Provider Reason for Visit * Reason Onset Date Comments Medication Problem 10/04/2023 Encounter Details Date Type Department Care Team (Late st Contact Info) Description 10/04/2023 Telephone [facility] [address] [facility], [facility] [place] [address] Trisha Bray MD [address] [place], [place] [id number] Medication Problem Social History Tobacco Use Types [...] Trisha Bray MD Allergy & Immunology Fellow ER MORTISER OPERATOR documented in this encounter Plan of Treatment Upcoming Encounters Date Type Department Care Team (Late st Contact Info) Description 2025 3:00 PM LOUVER MORTISER OPERATOR Office Visit [facility] [address] [place] [address], [place] [address] Lee Mendez MD [address] [place] [address] 2L DIV OF ALLERGY/[place] [address] documented as of this encounter Visit Diagnoses Not on filedocumented in this encounter Care Teams Regional Property Manager Relationship Specialty Start Date End Date Angel Guerra MD [address] [place] [address] PCP - General 01/11/22 documented as of this encounter
--- OUTSIDE RECORDS SUMMARY | 2025-01-01 00:30 | XMS_ITS | Encounter Summary ---
Author Organization [facility] Address [address] [place] [address] Care Team Providers Care Ultrasound Specialist Name Role Phone Paulette Pedraza MD Primary Care Provider + [phone] Angel Guerra MD Primary Care Provider + [phone] Encounter Details Date Type Department Care Team (Late st Contact Info) Description 08/05/2021 Telephone [facility] [address] [place] [address] Lee Mendez MD [facility] OF ALLERGY/[place] [address] Social History Tobacco Use Types Packs/Day Years [...] st Contact Info) Description 2025 3:00 PM NAVAL AIRCREWMAN Office Visit [facility] [address] [place] [address], [place] [address] Lee Mendez MD [address] [place] [address] 2L DIV OF ALLERGY/[place] [address] documented as of this encounter Visit Diagnoses Not on filedocumented in this encounter Care Teams Ultrasound Specialist Relationship Specialty Start Date End Date Paulette Pedraza MD PCP - General 12/26/16 01/10/22 Angel Guerra MD [address] [place] [address] PCP - General 01/11/22 documented as of this encounter
--- OUTSIDE RECORDS SUMMARY | 2025-01-01 00:30 | XMS_ITS | Encounter Summary ---
Author Organization [facility] Address [address] [place] [place] [address] Care Team Providers Care Firearms Expert Name Role Phone Angel Guerra MD Primary Care Provider Reason for Visit * Reason Onset Date Comments Refill Request 09/26/2023 Encounter Details Date Type Department Care Team (Late st Contact Info) Description 09/26/2023 Telephone [facility] [address] [facility], [facility] [place] [address] Trisha Bray MD [address] [place] [address] Refill Request Social History Tobacco Use Types [...] verbal order to renew gamunex C 50g a0auzub, and add 500cc NS bolus Trisha Bray MD Allergy & Immunology Fellow UNT SUPERVISOR documented in this encounter Plan of Treatment Upcoming Encounters Date Type Department Care Team (Late st Contact Info) Description 2025 3:00 PM ACCOUNT SUPERVISOR Office Visit [facility] [address] [place] [address], [place] [address] Lee Mendez MD [address] [place] [address] DIV OF ALLERGY/[place] [address] documented as of this encounter Visit Diagnoses Not on filedocumented in this encounter Care Teams Firearms Expert Relationship Specialty Start Date End Date Angel Guerra MD [address] [place] [address] PCP - General 01/11/22 documented as of this encounter
--- OUTSIDE RECORDS SUMMARY | 2025-01-01 00:30 | XMS_ITS | Clinical Summary ---
Author Organization [facility] Address [address] [place] [address] Care Team Providers Care Commodities Clerk Name Role Phone Angel Guerra MD Primary Care Provider Source Comments [facility],non-owned Affiliates and Associated Physician Practices is amultiple site organization consisting of ambulatory clinics and hospital sitesin [place], [place], [place] and [place]. This disclosure is being madepursuant to the Care Everywhere program and may not contain all information available regarding this patient. Last updated 18.[facility] [employer] Allergies Active Allergy Reactions Criticality Noted Date [...] 11 03/25/2024 Active Blood Glucose Monitoring Suppl (MesMateriaux Flex System) w/Device KIT USE TO CHECK [...] capsule by mouth 3 times daily Active MesMateriaux test strip TEST BLOOD SUGARS THREE TIMES DAILY 08/20/2024 Active TRUEplus 5-Bevel Pen [place] 32G X 4 MM [facility] USE TO INJECT VICTOZA EVERY DAY 12/04/2023 Active albuterol-ipratropi um (Duo-Neb) 0.5-2.5 (3) MG/3ML nebulizer solution USE 1 VIAL VIA NEBULIZER FOUR TIMES DAILY FOR SHORTNESS OF BREATH Active Lancets (Punch!UCH DELICA PLUS 33G EXTRA FINE LANCET) USE TO CHECK BLOOD GLUCOSE THREE TIMES DAILY 2023 Active Victoza 18 MG/3ML pen ADMINISTER 1.8 MG UNDER THE SKIN EVERY DAY Active traZODone (Desyrel) 100 MG tablet Take 1 (one) tablet by mouth at bedtime Active azelastine (Astelin) 0.1 % nasal spray Rio 2 (two) sprays into each nostril 2 [...] 11/05/2024 Telephone [facility] [address] [place] [address] Lee Mendez MD Refill Request (Gamunex IVIG) 10/24/2024 Telephone [facility] [address] [place] [phone] Lee Mendez MD MEDICATION REFILL (IVIG) from Last 3 Months Social History Tobacco [...] Comments Blood Pressure 114/70 08/29/2024 10:52 AM SEWER INSPECTOR Pulse 58 08/29/2024 10:52 AM SEWER INSPECTOR Temperature 36.3 C (97.4 F) 08/29/2024 10:52 AM SEWER INSPECTOR Respiratory Rate 18 09/26/2023 2:53 PM SEWER INSPECTOR Oxygen Saturation 93% 08/29/2024 10:52 AM SEWER INSPECTOR Inhaled Oxygen Concentration - - Weight 62.3 kg (137 lb 6.4 oz) 08/29/2024 10:52 AM SEWER INSPECTOR Height 160 cm (5' 3 ) 08/29/2024 10:52 AM SEWER INSPECTOR Body Mass Index 24.34 08/29/2024 10:52 AM SEWER INSPECTOR Plan of Treatment Upcoming Encounters Date Type Department Care Team (Late st Contact Info) Description 2025 3:00 PM SEWER INSPECTOR Office Visit [facility] [address] [place] [address], [place] [address] Lee Mendez MD [address] [place] [address] OF ALLERGY/[place] [address] Health Maintenance Due Date Last Done Comments [...] years 1-dose series) 2022 COVID-19 VACCINE ( - season) 2024 INFLUENZA VACCINE (#1) 2024 9, 07/25/2018, 08/01/2017, Additional history exists DEPRESSION SCREENING 10/15/2024 09/26/2023, 06/07/20 22 HEPATITIS B VACCINE Aged Out No longe [...] age to complete this topic Care Teams Commodities Clerk Relationship Specialty Start Date End Date Angel Guerra MD [address] [place], [place] [address] PCP - General 01/11/22
--- OUTSIDE RECORDS SUMMARY | 2025-01-01 00:30 | XMS_ITS | Encounter Summary ---
Author Organization [facility] Address [address] [facility] [place] [address] Care Team Providers Care Manager Combination Name Role Phone Paulette Pedraza MD Primary Care Provider + [phone] Angel Guerra MD Primary Care Provider + [phone] Encounter Details Date Type Department Care Team (Late st Contact Info) Description 07/27/2021 Telephone [facility] [address] [place] [address] Lee Mendez MD [facility] OF ALLERGY[place] [address] Social History Tobacco Use Types Packs/Day Years [...] patient today for her telephone appt. At [phone]. Thank you documented in this encounter Plan of Treatment Upcoming Encounters Date Type Department Care Team (Late st Contact Info) Description 2025 3:00 PM TERADATA SOLUTION ARCHITECT Office Visit [facility] [address] [place] [address], [place] [address] Lee Mendez MD [address] [place] [address] 2L DIV OF ALLERGY/[place] [address] documented as of this encounter Visit Diagnoses Not on filedocumented in this encounter Care Teams Manager Combination Relationship Specialty Start Date End Date Paulette Pedraza MD PCP - General 12/26/16 01/10/22 Angel Guerra MD [address] [place] [address] PCP - General 01/11/22 documented as of this encounter
--- OUTSIDE RECORDS SUMMARY | 2025-01-01 00:30 | XMS_ITS | Encounter Summary ---
Author Organization [facility] Address [address] [facility] [place] [address] Care Team Providers Care Telephoto Engineer Name Role Phone Paulette Pedraza MD Primary Care Provider + [phone] Angel Guerra MD Primary Care Provider + [phone] Encounter Details Date Type Department Care Team (Late st Contact Info) Description 06/15/2020 Telephone [facility] [address] [place] [address] Lee Mendez MD [address] OF ALLERGY/[place] [address] Social History Tobacco Use Types Packs/Day Years [...] Please call. Thanks. Fernie Call Back number: [phone] documented in this encounter Plan of Treatment Upcoming Encounters Date Type Department Care Team (Late st Contact Info) Description 2025 3:[address] CREW MEMBER Office Visit [facility] [address] [place] [address], [place] [address] Lee Mendez MD [address] [place] [address] DIV OF ALLERGY/[place] [address] documented as of this encounter Visit Diagnoses Not on filedocumented in this encounter Care Teams Telephoto Engineer Relationship Specialty Start Date End Date Paulette Pedraza MD PCP - General 12/26/16 01/10/22 Angel Guerra MD [address] [place] [address] PCP - General 01/11/22 documented as of this encounter
--- OUTSIDE RECORDS SUMMARY | 2025-01-01 00:30 | XMS_ITS | Encounter Summary ---
Author Organization [facility] Address [address] [place] [address] Care Team Providers Care Bean Weigher Name Role Phone Paulette Pedraza MD Primary Care Provider + [phone] Angel Guerra MD Primary Care Provider + [phone] Reason for Visit * Reason Onset Date Comments Results 01/15/2019 Encounter Details Date Type Department Care Team (Late st Contact Info) Description 01/15/2019 Telephone [facility] [address] [place] [address] Js Dubon DO [address] [place] [address] Results Social History Tobacco Use Types Packs/Day [...] 5:07 PM CDT Received lab results from [facility]. 01/06/2019 IgG 642, Creatine 0.62, [...] st Contact Info) Description 2025 3:00 PM PLANT OPERATOR HELPER Office Visit [facility] [address] [place] [address], [place] [address] Lee Mendez MD [address] [place] [address] OF ALLERGY/[place] [address] documented as of this encounter Visit Diagnoses Diagnosis Hypogammaglobulinemia (HCC)- Primary Hypogammaglobulinaemia, unspecified documented in this encounter Care Teams Bean Weigher Relationship Specialty Start Date End Date Paulette Pedraza MD PCP - General 12/26/16 01/10/22 Angel Guerra MD [address] [place] [address] PCP - General 01/11/22 documented as of this encounter
--- OUTSIDE RECORDS SUMMARY | 2025-01-01 00:30 | XMS_ITS | Encounter Summary ---
Author Organization [facility] Address [address] [facility] [place] [address] Care Team Providers Care Lobster Man Name Role Phone Paulette Pedraza MD Primary Care Provider + [phone] Angel Guerra MD Primary Care Provider + [phone] Reason for Visit * Reason Onset Date Comments Refill Request 07/25/2018 Encounter Details Date Type Department Care Team (Late Contact Info) Description 07/25/2018 Telephone [facility] [address] [place] [address] Js Khan DO [address] [place] [address] Refill Request Social History Tobacco Use Types [...] AM CDT Received home certification request from [facility]. documented in this encounter Plan of Treatment Upcoming Encounters Date Type Department Care Team (Late Contact Info) Description 2025 3:00 PM ROULETTE DEALER Office Visit [facility] [address] [place] [address], [place] [address] Lee Mendez MD [address] [place] [address] DIV [place]ERGY/[place] [address] documented as of this encounter Visit Diagnoses Not on filedocumented in this encounter Care Teams Lobster Man Relationship Specialty Start Date End Date Paulette Pedraza MD PCP - General 12/26/16 01/10/22 Angel Guerra MD [address] [place] [address] PCP - General 01/11/22 documented as of this encounter
--- OUTSIDE RECORDS SUMMARY | 2025-01-01 00:30 | XMS_ITS | Encounter Summary ---
Author Organization [facility] Address [address] [place] [address] Care Team Providers Care Margarine Churn Operator Name Role Phone Paulette Pedraza MD Primary Care Provider [phone] New Referring, Provider Primary Care Provider Un available Paulette Pedraza MD Unavailable [phone] Lee Mendez MD Unavailable [phone] Paulette Pedraza MD Primary Care Provider + [phone] Encounter Details Date Type Department Care Team (Latest Contact Info) Description 06/27/2018 Abstract [facility] [place] [address] [place] [address] Social History Tobacco Use Types Packs/Day Years [...] on filedocumented in this encounter Care Teams Margarine Churn Operator Relationship Specialty Start Date End Date Paulette Pedraza MD PCP - General 11/28/16 09/01/19 New Referring, Provider PCP - General UNKNOWN PHYSICIAN SPECIALTY 09/02/19 02/09/20 Paulette Pedraza MD PCP - General INTERNAL MEDICINE 02/10/20 01/04/21 Paulette Pedraza MD 09/02/19 01/04/21 Lee Mendez MD INTERNAL MEDICINE 09/03/19 documented as of this encounter
--- OUTSIDE RECORDS SUMMARY | 2025-01-01 00:30 | XMS_ITS | Clinical Summary ---
Author Organization [facility] Address [address] [place] [address] Care Team Providers Care Lap Polisher Name Role Phone Lee Mendez MD Unavailable [phone] Allergies Active Allergy Reactions Criticality Noted [...] :Uncontrolled type 2 diabetes mellitus with hyperglycemia ([facility]) [The details of the medication are not [...] Uncontrolled type 2 diabetes mellitus with hyperglycemia ([facility]) Inject 20 Units into the skin nightly at bedtime. 1 pen 3 04/06/20 Active Additional Information Patient taking differently:20 Units Subcutaneous Nightly at bedtime,For diabetes., Indications: Diabetes Mellitus, Reported on 06/08/2020 insulin lispro (HUMALOG) 100 UNIT/ML injection (VIAL)Indications :Uncontrolled type 2 diabetes mellitus with hyperglycemia ([facility] HHS/HCC) Inject 4-10 Units into the skin [...] Disease, Reported on 06/08/2020 Continuous Blood Gluc Computer Technical Specialist (DEXCOM G5 PAINTER SPRAY KIT) DeviceIndications :Uncontrolled type 2 diabetes mellitus with hyperglycemia ([facility] HHS/HCC) 1 Device by Does not apply route 4 (four) times a day. Check glucose qid ac & hs insulin dependent uncontrolled 1 Device 04/07/20 Active Insulin Pen Needle (B-D UF III MINI PEN NEEDLES) 31G X 5 MM MiscIndications:U ncontrolled type 2 diabetes mellitus with hyperglycemia ([facility] HHS/HCC) Use with insulin daily 100 Container [...] pecto ris 03/09/2017 Severe persistent asthma, uncomplicated ([facility]) 02/07/2017 Nasal polyp 02/07/2017 Hypogammaglobulinemia ([facility]) 02/07/2017 Chronic rhinitis 02/07/2017 Fatigue 12/11/2016 Finger infection 10/10/2016 Overview (09/16/2018): Annotation - [id number]: 10/24/15 Dx, MRI, DM & immune deficiency; R index finger Impingement syndrome of left shoulder 05/28/2015 Gastroesophageal reflux dise ase, esophagitis presence not specified 01/04/2015 Primary osteoarthritis of left knee 01/04/2015 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 Overview (09/16/2018): Annotation - [id number]: per Dr Lowery Diabetes mellitus type 2, uncontrolled 4 Insulin long-term use ([facility]) 04/08/20 14 Anxiety 11/17/2013 Asthma, mild intermittent ([facility]) 11/17/2013 Neck pain 11/17/2013 Overview (09/16/2018): Onset: [...] Comments Blood Pressure 122/64 09/28/2020 9:38 AM AUTOMOTIVE WARRANTY ADMINISTRATOR Pulse 85 09/28/2020 9:38 AM AUTOMOTIVE WARRANTY ADMINISTRATOR Temperature 36.9 C (98.4 F) 09/28/2020 9:38 AM AUTOMOTIVE WARRANTY ADMINISTRATOR Respiratory Rate 18 09/28/2020 9:38 AM AUTOMOTIVE WARRANTY ADMINISTRATOR Oxygen Saturation 94% 09/28/2020 9:38 AM AUTOMOTIVE WARRANTY ADMINISTRATOR Inhaled Oxygen Concentration - - Weight 81.6 [...] Comments HEMOGLOBIN, GLYCOSYLATED Routine 09/28/2020 11:20 AM AUTOMOTIVE WARRANTY ADMINISTRATOR Uncontrolled type 2 diabetes mellitus with hyperglycemia LIPID PANEL Routine 04/02/2020 11:05 AM CDT Mixed hyperlipidemia COLONOSCOPY Routine 07/15/2015 12:00 AM CDT from Last 3 Months or Most Recently Relevant to Health Maintenance Results * (ABNORMAL) HEMOGLOBIN, GLYCOSYLATED (09/28/2020 11:20 AM AUTOMOTIVE WARRANTY ADMINISTRATOR) HGB A1C 7.5(H) <5.7 % 09/29/2020 1:40 PM AUTOMOTIVE WARRANTY ADMINISTRATOR [facility] Comment: INCREASED RISK OF DIABETES <5.7% NON-DIABETES 5.7-6.4% INCREASED RISK FOR FUTURE DIABETES > OR = 6.5 CONSISTENT WITH DIABETES STANDARDS OF MEDICAL CARE IN DIABETES-2010 DIABETES CARE, 33(SUPP 1): S1-S61,2010 09/28/2020 11:2 0 AM AUTOMOTIVE WARRANTY ADMINISTRATOR Paulette Pedraza MD LABORATORY Final Result [facility] [address] [place] [address], * LIPID PANEL (04/02/2020 11:05 AM CDT) CHOLESTEROL 114 <200.0 MG/DL 04/02/2020 2:56 PM CDT [facility] TRIGLYCERIDES 111 <150 MG/DL 04/02/2020 2:56 PM CDT [facility] HDL 50 >40.0 MG/DL 04/02/2020 2:56 PM T [facility] LDL (CALCULATED) 42 <100 MG/DL 04/02/20 20 2:56 PM T [facility] NON HDL CHOLESTEROL 64 <130 MG/DL 04/02 2:56 PM T [facility] CHOL/HDL RATIO 2.3 0.0 - 4.5 04/02/2020 2:56 PM T [facility] VLDL CALCULATION 22 5 - 55 MG/DL 04/02/2020 2:56 PM T [facility] LIPID INTERPRETATION 04/02/2020 2:56 PM T [facility] Comment: NIH CONCENSUS REPORT RECOMMENDATIONS: ADULT CHILD LOW RISK: CHOLESTEROL <200 <170 TRIGLYCERIDE <150 --- HDL >=60 --- LDL <100 <110 BORDERLINE: CHOLESTEROL 200-239 170-199 TRIGLYCERIDE 150-199 --- HDL 40-59 --- LDL 100-159 110-129 HIGH RISK: CHOLESTEROL >=240 >=200 TRIGLYCERIDE >=200 --- HDL <40 --- LDL >=160 >=130 04/02/2020 11:0 5 AM CDT us Paulette Pedraza MD LABORATORY Final Result [facility] [address] [place] [address], * Colonoscopy (07/15/2015 12:00 AM CDT) 07/15/2015 07/15/2015 Narrative [facility] TO EP[facility] CONVERSION - 07/15/2015 12:00 AM CDT Documented hx of procedure Procedure Note , Generic MD iLane - 08/18/2018 Documented hx of procedure us Generic Conversion Md [facility] PROCEDURE ORDERABLES Final Result Performing Organization Address City/State/[facility] Co de Phone Number [facility] TO EPIC [...] 11:10 AM 10/31/2019 12:32 AM Care Teams Lap Polisher Relationship Specialty Start Date End Date Lee Mendez MD INTERNAL MEDICINE 09/03/19
--- OUTSIDE RECORDS SUMMARY | 2025-01-01 00:30 | XMS_ITS | Encounter Summary ---
Author Organization [facility] Address [address] [facility] [place] [address] Care Team Providers Care Talent Scout Name Role Phone Angel Guerra MD Primary Care Provider Reason for Visit * Reason Onset Date Comments Results 10/01/2023 Encounter Details Date Type Department Care Team (Late st Contact Info) Description 10/01/2023 Telephone [facility] [address] [facility], [place] [address] Trisha Bray MD [address] [place] [address] Results Social History Tobacco Use Types Packs/Day [...] mg/dL 302 272 R, CM Resulting Agency [facility] Parameters Male Ref. Range Female Ref. Range 09/26/23 WBC [id number] 2600-78639 8200 Lymphocytes % 21-48 18-54 19 Lymphocytes 3372-2163 1831-7697 1558 CD3+ % 75-80 76-78 65 CD3 7867-1221 2918-1227 1013 CD3+CD4+ % (CD4 T cells) 34-61 26-62 38 CD3+CD4+ 564-7389 758-5528 592 CD3+CD8+ % (CD8 T cells) 16-38 14-44 27 CD3+CD8+ 314-180 353-3602 421 CD4:CD8 Ratio 0.97-3.71 0.6-4.4 1.41 CD19 [...] T cell maturation subsets in adults of [facility]. Immunobiology, 219(7), 487-496. Matheus Randle, Matheus [...] Trisha Bray MD Allergy & Immunology Fellow TENANCE PARTS TECHNICIAN documented in this encounter Plan of Treatment Upcoming Encounters Date Type Department Care Team (Late st Contact Info) Description 2025 3:00 PM MAINTENANCE PARTS TECHNICIAN Office Visit [facility] [address] [place] [address], [place] [address] Lee Mendez MD [address] [place] [address] DIV OF ALLERGY/[place] [address] documented as of this encounter Visit Diagnoses Not on filedocumented in this encounter Care Teams Talent Scout Relationship Specialty Start Date End Date Angel Guerra MD [address] [place] [address] PCP - General 01/11/22 documented as of this encounter
--- OUTSIDE RECORDS SUMMARY | 2025-01-01 00:30 | XMS_ITS | Encounter Summary ---
Author Organization [facility] Address [address] [place] [address] Care Team Providers Care Craps Manager Name Role Phone Paulette Pedraza MD Primary Care Provider [phone] New Referring, Provider Primary Care Provider Un available Paulette Pedraza MD Unavailable [phone] Lee Mendez MD Unavailable [phone] Paulette Pedraza MD Primary Care Provider + [phone] Encounter Details Date Type Department Care Team (Late st Contact Info) Description 05/15/2018 Abstract [facility] Family & Internal Medicine [facility] [address] [place] [address] [place] [address] [place] [address] Social History Tobacco Use Types [...] on filedocumented in this encounter Care Teams Craps Manager Relationship Specialty Start Date End Date Paulette Pedraza MD PCP - General 11/28/16 09/01/19 New Referring, Provider PCP - General UNKNOWN PHYSICIAN SPECIALTY 09/02/19 02/09/20 Paulette Pedraza MD PCP - General INTERNAL MEDICINE 02/10/20 01/04/21 Paulette Pedraza MD 09/02/19 01/04/21 Lee Mendez MD INTERNAL MEDICINE 09/03/19 documented as of this encounter
[2025-01-01] MEDS: IPRATROPIUM 0.5 MG/ALBUTEROL SULFATE 2.5 MG AMPUL.NEB 3 ML INHALATION ×4 (00:32→21:34)
[2025-01-01] MEDS: methylPREDNISolone SOD SUCC 125 MG VIAL IV PUSH (00:35)
[2025-01-01] MEDS: SODIUM CHLORIDE 0.9% IV 500 ML 999 ML IV CONT (00:37)
[2025-01-01] MEDS: MAGNESIUM SULF 2 GM/WATER 50ML 2 GM/50 ML BAG IVPB (00:38)
[2025-01-01] MEDS: oxyCODONE HCL (*CRX) 5 MG TAB IR 10 MG PO (00:59)
[2025-01-01 01:08] LABS: Glucose Point of Care 167 mg/dl (65-105)
--- NOTE | 2025-01-01 01:52 | ECG_ITS ---
Test Date: 2025-01-01 01:52:20 Measurements Intervals [place] Rate: 88 P: 22 NC: 153 QRS: 35 QRSD: 97 T: 79 QT: 358 QTc: 435 Interpretive Statements SINUS RHYTHM POSSIBLE LEFT ATRIAL ENLARGEMENT [-0.1mV P WAVE IN V1/V2] ANTEROSEPTAL MYOCARDIAL INFARCTION , OF INDETERMINATE AGE [40+ ms Q WAVE IN V1-V4] Compared to ECG 12/06/2024 00:11:28 No significant changes Electronically Signed On 01-01-2025 11:56:39 CDT by Eusebio Dickey M.D.
[2025-01-01] MEDS: SODIUM CHLORIDE 0.9% IV 1,000 ML 100 ML IV CONT (03:32)
--- NOTE | 2025-01-01 03:53 | ADMGEN ---
This patient, Alma Anderson, was admitted to 3 Med Surg Room 307-02. Patient/family oriented to hospital policies and general routines including ID bracelet, bed and alarms, visiting hours, pain management, procedures, bathroom and other care routines, personal items, smoking policy, room service/diet, and visiting hours. Information on how to activate the Rapid Response Team has been discussed. Patient/Family are encouraged to report perceived risks to care and to ask questions if they do not understand what they are told or what they should do.
[2025-01-01 04:29] LABS: Glucose Point of Care 355 mg/dl (65-105)
[2025-01-01] MEDS: INSULIN ASPART (*BKC) 100 UNITS/ML 6 UNITS SUB-Q (04:54)
[2025-01-01] MEDS: oxyCODONE/ACETAMINOPHEN (*CRX) 10-325 MG TABLET 1 TAB PO ×4 (06:13→21:25)
[2025-01-01] MEDS: LEVOTHYROXINE SODIUM 50 MCG TABLET PO (06:16)
[2025-01-01 07:50] LABS: Hemoglobin A1C 6.8 % (<5.7)
[2025-01-01] MEDS: FLUTICASONE/UMECLIDIN/VILANTER 100-62.5-25 MCG ELLIPTA 1 PUFF INHALATION (08:00)
--- NOTE | 2025-01-01 08:02 | P.HP_ITS ---
H&P: HPI History of Present Illness Date/Time: 01/01/25 08:02 Chief Complaint: Shortness of breath Narrative: 64-year-old female past medical history of hypertension hyperthyroidism, diabetes, asthma, and common variable immunodeficiency presents the hospital shortness of breath. Patient states she has been sick since Sunday night with productive cough, congestion, nausea, diarrhea, headache, weakness, ligh theadedness, palpitations, and fever. She states that due to her asthma she gets frequent respiratory infections. She denies ever having nausea, diarrhea, weakness or fever with her previous respiratory infections. She states that she has crampy like abdominal pain. Patient describes her bowel movements cough he like grounds. She denies coffee-ground emesis. Her lab work from the ED shows hyponatremia 127, hyperglycemia at 196, A1c 6.8, magnesium 1.5, influenza A/B, RSV, COVID negative. Chest x-ray shows small right pleural effusion without infiltrates EKG shows sinus rhythm with QTC of 435. CT abdomen shows no acute intra-abdominal process. No pleural effusion seen on chest CT. Review of Systems Review of Systems: 12 systems were reviewed and are negativ e except for as per HPI. [facility] Past Medical History Medical History Stroke ~14 mon ago Hyperlipidemia Hypertension Thyroid disease Anxiety Diabetes mellitus Asthma RLS (restless legs syndrome) CVID (common variable immunodeficiency) Allergic rhinitis Asthma TATUM (obstructive sleep apnea) Tobacco abuse Surgical History Surgical History History of incisional hernia repair Laparoscopic 5 cm reducible recurrent incisional hernia repair with mesh, da Kiko assisted on 08/29/23 [facility] H/O hemicolectomy 01/08/2022 Family History Family History Sibling Cancer Mother Cancer of kidney Other Cerebrovascular accident Diabetes mellitus Heart disease Hypertension Social History Social History Smoking packs per day: 0.5 Smoking cigarettes per day: 10.0 Years smoked: 40 Smoking pack-years: 20.00 Smoking status: Current every day smoker Second hand tobacco smoke exposure: No Additional smoking assessment comments: Smoking 0.5ppd now. Alcohol intake: never Drinks per week: 0 Substance use: current Substance use type: marijuana Other substance usage details: Gummies Last use: 12/04/24 Do You Feel Safe in your Home?: Yes Lack of Transportation: No Lack of Food: Never True Current Housing: I Have Housing Concerned About Future Housing: No Difficulty Paying Gas/Electric Bills: No Difficulty Paying for Meds: No Currently Unemployed: No Education: Bachelor's Degree Difficulty w/ Childcare or Family Care: No Living arrangements: alone Gender identity (if verbalized by the patient): Female Spiritual care concerns: No Meds Home Medications and Allergies Home Medications ?Medication ?Instructions ?Recorded ?Confirmed ?Type atorvastatin 40 mg tablet 40 mg PO HS 09/18/19 01/01/25 History famotidine 40 mg tablet 40 mg PO DAILY 09/18/19 01/01/25 History fenofibrate 160 mg tablet 160 mg PO HS 09/18/19 01/01/25 History levothyroxine 50 mcg tablet 50 mcg PO DAILY 09/18/19 01/01/25 History metoprolol tartrate 50 mg tablet 25 mg PO BID 09/18/19 01/01/25 History aspirin 81 mg tablet,delayed 81 mg PO HS 11/25/19 01/01/25 History release estradiol 1 mg tablet 0.5 mg PO HS 05/04/20 01/01/25 History potassium chloride 10 mEq 10 meq PO DAILY 05/04/20 01/01/25 History tablet,extended release ropinirole 0.5 mg tablet 0.5 mg PO TID 05/04/20 01/01/25 History immune glob G 40 gram/400 500 ml IV MONTHLY 06/26/22 01/01/25 History mL(10%)-gly-IgA ave 46 mcg/mL injection soln (Gamunex-C) albuterol sulfate 2.5 mg/3 mL 2.5 mg (3 mL) inhalation QID PRN 10/31/22 01/01/25 Rx (0.083 %) solution for nebulization shortness of breath or wheezing #360 mL fluoxetine 20 mg tablet 20 mg PO HS 01/27/23 01/01/25 History gabapentin 400 mg capsule 400 mg PO BID 01/27/23 01/01/25 History (Neurontin) budesonide 160 mcg-glycopyr 9 2 inh inhalation BID 08/23/23 01/01/25 History mcg-formot 4.8 mcg/actuation HFA inhaler (Breztri Aerosphere) liraglutide 0.6 mg/0.1 mL (18 mg/3 1.8 mg subcut DAILY 08/23/23 01/01/25 History mL) subcutaneous pen injector (Victoza 2-Sean) oxycodone-acetaminophen 10 mg-325 1 - 2 tablet PO Q4H PRN pain #30 08/31/23 01/01/25 Rx mg tablet (Percocet) tabs trazodone 100 mg tablet 100 mg PO HS 10/11/23 01/01/25 History Daliresp 500 mcg tablet See Rx Instructions .Route 10/22/23 01/01/25 Rx (roflumilast) .COMPLEX #90 tabs ipratropium 0.5 mg-albuterol 3 mg 3 ml inhalation Q6H PRN shortness 11/07/24 01/01/25 History (2.5 mg base)/3 mL nebulization of breath or wheezing soln Allergies Allergy/AdvReac Type Severity Reaction Status Date / Time Sulfa (Sulfonamide Allergy Unknown Nausea and Verified 11/07/24 08:42 Antibiotics) Vomiting Vital Signs Vital Signs - 24 hr 12/31/24 15:06 12/31/24 18:49 12/31/24 22:50 Temperature 98.6 F 97.5 F L Pulse Rate 89 90 Respiratory Rate 16 20 Blood Pressure 157/75 H 138/72 Pulse Oximetry 96 92 92 Oxygen Delivery Room Air Oxygen Flow Rate 12/31/24 23:44 12/31/24 23:46 01/01/25 00:32 Temperature Pulse Rate 107 H Respiratory Rate 22 H Blood Pressure Pulse Oximetry 97 97 Oxygen Delivery Nasal Cannula Nasal Cannula Oxygen Flow Rate 2 2 01/01/25 03:34 01/01/25 03:44 01/01/25 04:00 Temperature 96.9 F L Pulse Rate 91 91 97 Respiratory Rate 21 H 21 H 20 Blood Pressure 139/81 139/81 159/71 H Pulse Oximetry 94 94 94 Oxygen Delivery Oxygen Flow Rate 01/01/25 05:08 01/01/25 07:45 01/01/25 07:58 Temperature Pulse Rate 91 85 85 Respiratory Rate 21 H 20 20 Blood Pressure Pulse Oximetry 94 Oxygen Delivery Nasal Cannula Oxygen Flow Rate 2 Exam Narrative: General: well appearing, appears stated age. HEENT: normocephalic, atraumatic. Mucous membranes moist. EOMI, PERRLA, bilateral sclera anicteric, no conjunctival injection. Neck supple without JVD, lymphadenopathy, or bruit. Respiratory: Diminished to ascultation bilaterally. No rales/rhonic/wheezes. Cardiovascular: Regular rate and rhythm, normal S1-S2 upon ascultation. No murmurs, rubs, or clicks. PMI is nondisplaced, capillary refill less than 3 second. Abdomen: Soft, round, no pulsatile masses, nondistended and nontender. No rebound, no guarding. No CVA tenderness, no hepatosplenomegaly. Bowel sounds present to all four quadrants. No high pitch or tinkling sounds, resonant to percussion. Extremities: No cyanosis, clubbing, or edema present. Pulses are palpable 2/2. Active ROM to all four extremities. Neuro: Alert and orientated x 4. PERRLA. Cranial nerves 2-12 intact without focal deficit. Skin: Warm, dry, and intact, without rash, erythema, or lesion. Psych: pleasant, cooperative, normal speech, normal affect, no hallucinations, no dysarthia H&P: Results Labs Labs: Short CBC 12/31/24 Range/Units 23:35 WBC 6.4 (4.5-10.0) K/mm3 Hgb 16.2 H D (12.0-15.0) g/dL Hct 46.6 (37.0-47.0) % Plt Count 207 (150-375) k/mm3 [facility] 12/31/24 23:35 Sodium 127 L Potassium 4.2 Chloride 92 L Carbon Dioxide 25 BUN 14 D Creatinine 0.50 L Glucose 196 H Calcium 9.7 Cardiac Enzymes 12/31/24 Range/Units 23:35 Troponin I < 0.012 (0.000-0.034) ng/mL Liver Function 12/31/24 Range/Units 23:35 Total Bilirubin 0.6 (0.2-1.3) mg/dL AST 31 (14-36) U/L ALT 31 (6-35) U/L Alkaline Phosphatase 100 (38-126) U/L Albumin 4.5 (3.5-5.1) g/dL Assessment and Plan Assessment and plan (1) COPD exacerbation: Code(s): J44.1 - Chronic obstructive pulmonary disease with (acute) exacerbation Status: Acute Assessment and Plan: Wean oxygen as able IV Solu-Medrol x1 Prednisone Repeat chest x-ray (2) Fever: Code(s): R50.9 - Fever, unspecified Status: Acute Assessment and Plan: productive cough, congestion, nausea, diarrhea, headache, weakness, lightheadedness, palpitations, and fever C diff test negative Chest x-ray without infiltrates Abdominal CT with no acute findings WBC within normal limits Possibly the viral in nature (3) Diabetes mellitus: Qualifiers: Diabetes mellitus complication status: without complication Diabetes mellitus terminal supervisor insulin use: with halfway use Diabetes mellitus type: type 2 Qualified Code(s): E11.9 - Type 2 diabetes mellitus without complications; Z79.4 - terminologist (current) use of insulin Code(s): E11.9 - Type 2 diabetes mellitus without complications Status: Chronic Assessment and Plan: Diabetic diet Accu-Cheks a.c. HS SSI and lantus Hemoglobin A1c 6.8 (4) Hyponatremia: Code(s): E87.1 - Hypo-osmolality and hyponatremia Status: Acute Assessment and Plan: Na 127 on admission could be due to poor oral intake and diarrhea IV fluid Patient may need low-dose Lasix once hydrated (5) Hypertension: Code(s): I10 - Essential (primary) hypertension Status: Acute Assessment and Plan: Patient does not appear to be on antihypertensives Continue to monitor (6) Cirrhosis: Code(s): K74.60 - Unspecified cirrhosis of liver Status: Acute Assessment and Plan: AST and ALT within normal range (7) Hypomagnesemia: Code(s): E83.42 - Hypomagnesemia Status: Acute Assessment and Plan: Magnesium level morning Repleted as needed Quality VTE Prophylaxis VTE prophylaxis: mechanical ordered and pharmacologic ordered Hospitalist MIPS Advance Care Plan I have confirmed that the patient's Advanced Care Plan is present, code status is documented, or surrogate decision maker is listed in patient medical record.: Yes Medication Reconciliation I have utilized all available resources to obtain, update and review the patients current medications (includes all prescriptions, OTC, herbals, cannabis, and nutritional supplements).: Yes
[2025-01-01 08:10] LABS: Glucose Point of Care 208 mg/dl (65-105)
[2025-01-01] MEDS: rOPINIRole HCL 0.5 MG TABLET PO ×3 (08:17→16:04)
[2025-01-01] MEDS: ROFLUMILAST 500 MCG TABLET FEED TUBE (08:17)
[2025-01-01] MEDS: METOPROLOL TARTRATE 25 MG TABLET PO ×2 (08:17→21:26)
[2025-01-01] MEDS: FAMOTIDINE 20 MG TABLET 40 MG PO (08:17)
[2025-01-01] MEDS: POTASSIUM CHLORIDE 10 MEQ ER TABLET PO (08:17)
[2025-01-01] MEDS: GABAPENTIN 400 MG CAPSULE PO ×2 (08:17→16:04)
[2025-01-01] MEDS: INSULIN ASPART (*BKC) 100 UNITS/ML SUB-Q ×4 (09:41→21:27)
[2025-01-01 11:58] LABS: Glucose Point of Care 290 mg/dl (65-105)
[2025-01-01 12:27] LABS: Toxigenic C. Diff NEGATIVE (NEGATIVE)
[2025-01-01] MEDS: LOPERAMIDE HCL 2 MG CAPSULE PO (13:43)
[2025-01-01 16:58] LABS: Glucose Point of Care 286 mg/dl (65-105)
[2025-01-01 21:21] LABS: Glucose Point of Care 242 mg/dl (65-105)
[2025-01-01] MEDS: INSULIN GLARGINE (*BKC) 100 UNITS/ML 10 UNITS SUB-Q (21:26)
[2025-01-01] MEDS: FENOFIBRATE 160 MG TABLET PO (21:26)
[2025-01-01] MEDS: ASPIRIN 81 MG ENTERIC TABLET PO (21:26)
[2025-01-01] MEDS: traZODone HCL 50 MG TABLET 100 MG PO (21:26)
[2025-01-01] MEDS: FLUoxetine HCL 20 MG CAPSULE PO (21:26)
[2025-01-01] MEDS: ATORVASTATIN 40 MG TABLET PO (21:26)
[2025-01-01] MEDS: guaiFENesin 600 MG/DEXTROMETHORPHAN 30 MG SR TAB 12 HR 1 TAB PO (23:10)
[2025-01-02] VITALS (7 sets, daily range): BP systolic 102–104; BP diastolic 43–60; PULSE 61–87; RESP 16–20; TEMP 36.4–36.6; O2SAT 92–97
[2025-01-02] MEDS: IPRATROPIUM 0.5 MG/ALBUTEROL SULFATE 2.5 MG AMPUL.NEB 3 ML INHALATION ×2 (02:02→08:08)
[2025-01-02 05:42] LABS: Alanine Aminotransferase 22 U/L (6-35); Albumin Level 3.4 g/dL (3.5-5.1); Alkaline Phosphatase 95 U/L (38-126); Anion Gap 5 mmol/L (4-12); Aspartate Amino Transferase 21 U/L (14-36); Bilirubin,Total 0.2 mg/dL (0.2-1.3); Blood Urea Nitrogen 11 mg/dL (7-17); Calcium 8.3 mg/dL (8.4-10.2); Carbon Dioxide 25 mmol/L (22-30); Chloride 107 mmol/L (98-107); Estimated CRCL calculation 102 ml/min; Estimated Glomerular Filt Rate > 60; Glucose 115 mg/dL (65-110); Magnesium 1.7 mg/dL (1.6-2.3); Phosphorus 2.4 mg/dL (2.5-4.5); Potassium 4.3 mmol/L (3.4-5.0); Sodium 137 mmol/L (137-145)
[2025-01-02 05:55] LABS: Hematocrit 38.4 % (37.0-47.0); Hemoglobin 12.6 g/dL (12.0-15.0); Mean Corpuscular HGB Conc 32.8 g/dl (32-36); Mean Corpuscular Hemoglobin 28.4 pg (26-34); Mean Corpuscular Volume 86.7 fl (80-100); Mean Platelet Volume 9.4 fl (7.4-10.4); Platelet Count Result 141 k/mm3 (150-375); Red Blood Count 4.43 M/mm3 (4.2-5.4); Red Cell Distribution Width 13.3 % (11.5-14.5); White Blood Count 5.3 K/mm3 (4.5-10.0)
[2025-01-02] MEDS: oxyCODONE/ACETAMINOPHEN (*CRX) 10-325 MG TABLET 1 TAB PO ×2 (06:14→12:03)
[2025-01-02] MEDS: LEVOTHYROXINE SODIUM 50 MCG TABLET PO (06:15)
[2025-01-02] MEDS: FLUTICASONE/UMECLIDIN/VILANTER 100-62.5-25 MCG ELLIPTA 1 PUFF INHALATION (08:08)
[2025-01-02 08:22] LABS: Glucose Point of Care 173 mg/dl (65-105)
[2025-01-02] MEDS: POTASSIUM CHLORIDE 10 MEQ ER TABLET PO (08:59)
[2025-01-02] MEDS: ROFLUMILAST 500 MCG TABLET FEED TUBE (08:59)
[2025-01-02] MEDS: predniSONE 20 MG TABLET 40 MG PO (09:00)
[2025-01-02] MEDS: FAMOTIDINE 20 MG TABLET 40 MG PO (09:00)
[2025-01-02] MEDS: rOPINIRole HCL 0.5 MG TABLET PO ×2 (09:00→12:04)
[2025-01-02] MEDS: METOPROLOL TARTRATE 25 MG TABLET PO (09:00)
[2025-01-02] MEDS: ENOXAPARIN 40 MG/0.4 ML SYRINGE SUB-Q (09:01)
[2025-01-02] MEDS: GABAPENTIN 400 MG CAPSULE PO (09:01)
--- NOTE | 2025-01-02 09:33 | P.DS_ITS ---
DS: Admitting Diagnosis Discharge Date 01/02/25 Admitting Diagnosis COPD exacerbation DS: Discharge Diagnosis Discharge Diagnosis (1) COPD exacerbation: Code(s): J44.1 - Chronic obstructive pulmonary disease with (acute) exacerbation Status: Acute (2) Fever: Code(s): R50.9 - Fever, unspecified Status: Acute (3) Diabetes mellitus: Qualifiers: Diabetes mellitus complication status: without complication Diabetes mellitus mcfp insulin use: with mcfp use Diabetes mellitus type: type 2 Qualified Code(s): E11.9 - Type 2 diabetes mellitus without complications; Z79.4 - FDC (current) use of insulin Code(s): E11.9 - Type 2 diabetes mellitus without complications Status: Chronic (4) Hyponatremia: Code(s): E87.1 - Hypo-osmolality and hyponatremia Status: Acute (5) Hypertension: Code(s): I10 - Essential (primary) hypertension Status: Acute (6) Cirrhosis: Code(s): K74.60 - Unspecified cirrhosis of liver Status: Acute (7) Hypomagnesemia: Code(s): E83.42 - Hypomagnesemia Status: Acute DS: Summary Hospital Course Reason for hospitalization: Shortness of breath Hospital Course: 64-year-old female past medical history of hypertension hyperthyroidism, diabetes, asthma, and common variable immunodeficiency presents the hospital shortness of breath. Patient states she has been sick since Sunday night with productive cough, congestion, nausea, diarrhea, headache, weakness, lightheadedness, palpitations, and fever. She states that due to her asthma she gets frequent respiratory infections. She denies ever having nausea, diarrhea, weakness or fever with her previous respiratory infections. She states that she has crampy like abdominal pain. Patient describes her bowel movements cough he like grounds. She denies coffee-ground emesis. Her lab work from the ED shows hyponatremia 127, hyperglycemia at 196, A1c 6.8, magnesium 1.5, influenza A/B, RSV, COVID negative. Chest x-ray shows small right pleural effusion without infiltrates EKG shows sinus rhythm with QTC of 435. CT abdomen shows no acute intra-abdominal process. No pleural effusion seen on chest CT. On 01/02, WBC was within normal limits. Creatinine was 0.44 (which appears to be chronic), and CMP was otherwise unremarkable. Repeat chest xray showed lungs were clear without focal consolidation or pleural effusion. After receiving D uoneb treatments and steroids, patient endorsed a significant decrease in lung symptoms, stating that she feels comfortable going home with a prescription of Duonebs and prednisone. Upon examination, lung sounds are not diminished with slight crackles throughout. Given patient is afebrile, near baseline, without leukocytosis, and already has an appointment scheduled with her Pulmonology for 01/13, patient is stable for discharge. Time Spent with Patient Time attestation: Total time spent providing and/or coordinating discharge services:45 Exam Narrative: General: well appearing, appears stated age. Does not appear to be in re spiratory distress. HEENT: normocephalic, atraumatic. Mucous membranes moist. EOMI, PERRLA, bilateral sclera anicteric, no conjunctival injection. Neck supple without JVD, lymphadenopathy, or bruit. Respiratory: Slight crackles bilaterally. No diminished breath sounds. No rales/rhonic/wheezes. Cardiovascular: Regular rate and rhythm, normal S1-S2 upon ascultation. No murmurs, rubs, or clicks. PMI is nondisplaced, capillary refill less than 3 second. Abdomen: Soft, round, no pulsatile masses, nondistended and nontender. No rebound, no guarding. No CVA tenderness, no hepatosplenomegaly. Bowel sounds present to all four quadrants. No high pitch or tinkling sounds, resonant to percussion. Extremities: No cyanosis, clubbing, or edema present. Pulses are palpable 2/2. Active ROM to all four extremities. Neuro: Alert and orientated x 4. PERRLA. Cranial nerves 2-12 intact without focal deficit. Skin: Warm, dry, and intact, without rash, erythema, or lesion. Psych: pleasant, cooperative, normal speech, normal affect, no hallucinations, no dysarthia DS: Data Data Completed and Pending Labs on day of discharge: Labs from last 24 hours 01/02/25 01/02/25 01/01/25 08:10 05:25 21:17 WBC 5.3 RBC 4.43 Hgb 12.6 D Hct 38.4 MCV 86.7 D MCH 28.4 MCHC 32.8 RDW 13.3 Plt Count 141 L MPV 9.4 Sodium 137 Potassium 4.3 Chloride 107 Carbon Dioxide 25 Anion Gap 5 BUN 11 Creatinine 0.44 L Estim Creat Clear Calc 102 Estimated GFR > 60 Glucose 115 H POC Capillary Glucose 173 H 242 H Calcium 8.3 L Phosphorus 2.4 L Magnesium 1.7 Total Bilirubin 0.2 AST 21 ALT 22 Alkaline Phosphatase 95 Total Protein 6.0 L Albumin 3.4 L C. difficile (PCR) 01/01/25 01/01/25 01/01/25 16:51 11:42 11:01 WBC RBC Hgb Hct MCV MCH MCHC RDW Plt Count MPV Sodium Potassium Chloride Carbon Dioxide Anion Gap BUN Creatinine Estim Creat Clear Calc Estimated GFR Glucose POC Capillary Glucose 286 H 290 H Calcium Phosphorus Magnesium Total Bilirubin AST ALT Alkaline Phosphatase Total Protein Albumin C. difficile (PCR) Negative Discharge Plan Discharge Attending physician on discharge: Ronn Ho Consulting providers: Ronn Ho Discharging Clinician: Ronn Ho Anticipated Discharge Date/Time: 01/02/25 09:12 Patient Disposition: Home, Self-Care Activity: as tolerated Diet: as tolerated Discharge Instructions: Take medications as prescribed Remain active Monitor urine output Daily weights, if you gain more than 3 lb within 1 day or 5 lb in 1 week notify your primary care provider If you develop chest pain, shortness breath, fever greater than 101, nausea, or vomiting notify a clinician or come to the emergency department Follow-up with primary care provider within 1-2 weeks Thank you for [facility] for your healthcare needs Patient Instructions: Antibiotic Form Patient Language: Kyrgyz Stand Alone Forms: General Discharge Information Follow-up/Referrals: George,Corey Peralta APRN [Primary Care Provider] - Bogdan Conley APRN [Advanced Practice Nurse] - Discharge Medications: New prednisone 20 mg tablet 20 mg PO DAILY Qty: 5 0RF ipratropium-albuterol 0.5 mg-3 mg(2.5 mg base)/3 mL solution for nebulization 3 ml inhalation Q6-8H PRN (Reason: shortness of breath) Qty: 90 0RF Continued ipratropium-albuterol 0.5 mg-3 mg(2.5 mg base)/3 mL solution for nebulization 3 ml inhalation Q6H PRN (Reason: shortness of breath or wheezing) atorvastatin 40 mg tablet 40 mg PO HS famotidine 40 mg tablet 40 mg PO DAILY fenofibrate 160 mg tablet 160 mg PO HS levothyroxine 50 mcg tablet 50 mcg PO DAILY metoprolol tartrate 50 mg tablet 25 mg PO BID Rx Instructions: pt stats, takes half in the morning and half at night. aspirin 81 mg tablet,delayed release (DR/EC) 81 mg PO HS Gamunex-C 40 gram/400 mL (10 %) solution 500 ml IV MONTHLY Patient Comments: Pt had an issue with insurance, is working on getting next dose scheduled, okay with not recieving during this admission Rx Instructions: 50g q28 days potassium chloride 10 mEq tablet extended release 10 meq PO DAILY estradiol 1 mg tablet 0.5 mg PO HS ropinirole 0.5 mg Tablet 0.5 mg PO TID gabapentin [Neurontin] 400 mg capsule 400 mg PO BID fluoxetine 20 mg tablet 20 mg PO HS liraglutide [Victoza 2-Sean] 0.6 mg/0.1 mL (18 mg/3 mL) Pen Injector 1.8 mg SUBCUT DAILY Breztri Aerosphere 160-9-4.8 mcg/actuation HFA aerosol inhaler 2 inh INHALATION BID oxycodone-acetaminophen [Percocet] 10-325 mg tablet 1 - 2 tablet PO Q4H PRN (Reason: pain) Qty: 30 0RF trazodone 100 mg tablet 100 mg PO HS albuterol sulfate 2.5 mg /3 mL (0.083 %) solution for nebulization 2.5 mg inhalation QID PRN (Reason: shortness of breath or wheezing) Qty: 360 3RF roflumilast [Daliresp] 500 mcg tablet See Rx Instructions .ROUTE .COMPLEX Qty: 90 0RF Dose Instruction: TAKE 1 TABLET BY MOUTH DAILY Rx Instructions: TAKE 1 TABLET BY MOUTH DAILY. Need appt for refills Date of admission: 01/01/25 08:05 Primary Care Provider: George,Corey Peralta Admitting Provider: Galen Terry Attending physician on admission: Galen Terry Condition: Stable Quality VTE Prophylaxis VTE prophylaxis: mechanical ordered and pharmacologic ordered Hospitalist MIPS Heart Failure (Exclusion) Patient has history of Heart Transplant or Left Ventricular Assistive Device?: No IF YES, STOP HERE Heart Failure (Qualifier) Patient has current or prior documentation of LVEF less than or equal to 40%, or mod/servere depressed LVSF?: No IF NO, STOP HERE
[2025-01-02 12:28] LABS: Glucose Point of Care 265 mg/dl (65-105)
== END 2025-01-02 12:05 | disposition home or self-care (01) | DRG 140 ==
LOC: ANHED 01-01 02:00 → ANH3MEDSUR 01-01 02:58
PROVIDERS: Nurse Practitioner Gerontology; Physician Assistant; Admitting Provider Internal Medicine; Emergency Provider Physician Assistant; PCP Registered Nurse; Visit Provider Physician Assistant
DX: J44.1 Chronic obstructive pulmonary disease with (acute) exacerbation (principal); D83.9 Common variable immunodeficiency, unspecified; E87.1 Hypo-osmolality and hyponatremia; E83.42 Hypomagnesemia; I10 Essential (primary) hypertension; E11.9 Type 2 diabetes mellitus without complications; E78.5 Hyperlipidemia, unspecified; K74.60 Unspecified cirrhosis of liver; G47.33 Obstructive sleep apnea (adult) (pediatric); G25.81 Restless legs syndrome; F41.9 Anxiety disorder, unspecified; Z20.822 Contact with and (suspected) exposure to COVID-19; Z79.82 Long term (current) use of aspirin; Z86.73 Personal history of transient ischemic attack (TIA), and cerebral infarction without residual deficits
CPT/HCPCS: 36415; 71045; 71046; 74176; 80053; 82948; 83036; 83735; 83880; 84100; 84484; 85025; 85027; 85610; 85730; 87493; 87637; 93005; 94640; 96365; 96375; 99285; A9270; G0378; J1650; J1815; J2919; J3475; J7030; J7040; J7512

== ENCOUNTER 2025-02-02 12:04 | Outpatient (CLI) | payer OTHER, SELFPAY ==
--- NOTE | ~2025-02-02 | CT_ITS ---
CT Scan of the Chest without Contrast: Clinical Indication: Lung cancer screening, nicotine dependence Technique: Contiguous sections were acquired throughout the chest without intravenous contrast. Dose reduction technique was used on this scan by utilizing automated exposure control and iterative recon struction technique. The dose-length product (DLP) was 80.77 mGy-cm. COMPARISON: 12/08/2024 Findings: There is no evidence of any significant mediastinal, hilar or axillary lymphadenopathy. Extensive cor onary artery calcifications are present. There is no evidence of pleural or pericardial effusion. Calcified right middle lobe granuloma present. There is stable scarring at the right lung base border patrol agent iorly. Images through the upper abdomen reveal no abnormalities. Impression: Lung RADS 2: Benign appearance. 12 month follow-up screening CT advised. Reviewed, dictated and finalized at [facility]. Impression: Lung RADS 2: Benign appearance. 12 month follow-up screening CT advised.
--- OUTSIDE RECORDS SUMMARY | 2025-02-02 13:40 | XMS_ITS | Clinical Summary ---
Author Organization [facility] Address [address] [place] [address] Care Team Providers Care Master Pilot Name Role Phone Lee Mendez MD Unavailable [phone] Allergies Active Allergy Reactions Criticality Noted [...] Indications: Decreased Blood Potassium Levels 3 08/08/20 18 Active ropinirole 0.5 MG tablet take one [...] :Uncontrolled type 2 diabetes mellitus with hyperglycemia ([facility]) [The details of the medication are [...] Uncontrolled type 2 diabetes mellitus with hyperglycemia ([facility]/HCC) Inject 20 Units into the skin nightly at bedtime. 1 pen 3 04/06/20 Active Additional Information Patient taking differently:20 Units Subcutaneous Nightly at bedtime,For diabetes., Indications: Diabetes Mellitus, Reported on 06/08/2020 insulin lispro (HUMALOG) 100 UNIT/ML injection (VIAL)Indications :Uncontrolled type 2 diabetes mellitus with hyperglycemia ([facility]/HCC) Inject 4-10 Units into the [...] Disease, Reported on 06/08/2020 Continuous Blood Gluc Software Technician ([employer] G5 WAREHOUSE OPERATIONS ASSOCIATE KIT) DeviceIndications :Uncontrolled type 2 diabetes mellitus with hyperglycemia ([facility]/HCC) 1 Device by Does not apply route 4 (four) times a day. Check glucose qid ac & hs insulin dependent uncontrolled 1 Device 04/07/20 Active Insulin Pen Needle (B-D UF III MINI PEN NEEDLES) 31G X 5 MM MiscIndications:U ncontrolled type 2 diabetes mellitus with hyperglycemia ([facility]/HCC) Use with insulin daily 100 [...] by a home health clinician.] 30 tablet 09/08/20 20 Active Additional Information Patient taking differently: TAKE 1 TABLET(1 MG) BY MOUTH DAILY FOR REPLACEMENT THERAPY, Reported on 08/26/2020 predniSONE 10 mg tabletIndications :Severe persistent asthma, uncomplicated ([facility]) Tapering dose 4 tabs x 4 days, [...] :Uncontrolled type 2 diabetes mellitus with hyperglycemia ([facility]/HCC) TAKE 1 TABLET(500 MG) BY MOUTH EVERY NIGHT 30 tablet 09/15/20 20 Active pioglitazone 30 MG tabletIndications :Uncontrolled type 2 diabetes mellitus with hyperglycemia ([facility]/HCC) Take 1 tablet (30 mg total) by mouth daily. Increased dose 90 tablet 10/05/20 20 Active OMEPRAZOLE 20 MG capsuleIndication s:Gastroesophagea l reflux disease without esophagitis TAKE 1 TABLET BY MOUTH DAILY FOR GERD 90 capsule 10/11/20 20 Active pseudoephedrine 30 MG tabletIndications :Asthma, mild intermittent ([facility]),COPD with asthma ([facility]/HCC) TAKE 2 TABLETS BY MOUTH THREE [...] pecto ris 03/09/2017 Severe persistent asthma, uncomplicated ([facility]) 02/07/2017 Nasal polyp 02/07/2017 Hypogammaglobulinemia (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) 11/17/2013 Neck pain 11/17/2013 Overview (09/16/2018): Onset: 11/17/1993; Description: fell in had Lumbar fx & surgery with rods, chronic LBP Onset: 11/17/1993; Description: herniated disc Hyperlipidemia 11/17/2013 Hypertension 11/17/2013 Hypothyroidism 11/17/2013 Knee pain, right 11/17/2013 Menopausal symptoms 11/17/2013 Immunizations Immunization Administration Dates Next Due Fluzone 6 Months+ [...] Comments Blood Pressure 122/64 09/28/2020 9:38 AM OPEN HEARTH LABORER Pulse 85 09/28/2020 9:38 AM OPEN HEARTH LABORER Temperature 36.9 C (98.4 F) 09/28/2020 9:38 AM OPEN HEARTH LABORER Respiratory Rate 18 09/28/2020 9:38 AM OPEN HEARTH LABORER Oxygen Saturation 94% 09/28/2020 9:38 AM OPEN HEARTH LABORER Inhaled Oxygen Concentration - - Weight 81.6 [...] (1 - Tdap) 10/11/2016 10/10/2016 Pneumococcal Vaccine: 50+ Years (3 of 3 - PCV) 03/13/2018 03/13/2017, 07/21/2016, 07/18/2014 Hemoglobin A1C 03/29/2021 09/28/2020, 03/15, 12/05/2019, Additional history exists ASCVD LDL 04/02/2021 04/02/2020, 11/16, 10/04/2018, Additional history exists Lipid Panel 04/02/2021 04/02/2020, 11/16, 10/04/2018, Additional history exists RSV Immunization or 60+ Years (1 - Risk 60-74 years 1-dose series) 2022 Colorectal Cancer Screening Colonoscopy (10 Years) 07/15/2025 [...] Comments HEMOGLOBIN, GLYCOSYLATED Routine 09/28/2020 11:20 AM OPEN HEARTH LABORER Uncontrolled type 2 diabetes mellitus with hyperglycemia LIPID PANEL Routine 04/02/2020 11:05 AM CDT Mixed hyperlipidemia COLONOSCOPY Routine 07/15/2015 12:00 AM CDT from Last 3 Months or Most Recently Relevant to Health Maintenance Results * (ABNORMAL) HEMOGLOBIN, GLYCOSYLATED (09/28/2020 11:20 AM OPEN HEARTH LABORER) HGB A1C 7.5(H) <5.7 % 09/29/2020 1:40 PM OPEN HEARTH LABORER [facility] Comment: INCREASED RISK OF DIABETES <5.7% NON-DIABETES 5.7-6.4% INCREASED RISK FOR FUTURE DIABETES > OR = 6.5 CONSISTENT WITH DIABETES STANDARDS OF MEDICAL CARE IN DIABETES-2010 DIABETES CARE, 33(SUPP 1): S1-S61,2009 09/28/2020 11:2 0 AM OPEN HEARTH LABORER Paulette Pedraza MD LABORATORY Final Result Performing Organization Address City/[facility]/ZIP Co de Phone Number [facility] [address] [place] [address], [place] [phone] * LIPID PANEL (04/02/2020 11:05 AM CDT) CHOLESTEROL 114 <200.0 MG/DL 04/02/2020 2:56 PM CDT [facility] TRIGLYCERIDES 111 <150 MG/DL 04/02/2020 2:56 PM CDT [facility] HDL 50 >40.0 MG/DL 04/02/2020 2:56 PM CDT [facility] LDL (CALCULATED) 42 <100 MG/DL 04/02/20 20 2:56 PM CDT [facility] NON HDL CHOLESTEROL 64 <130 MG/DL 04/02 2:56 PM CDT [facility] CHOL/HDL RATIO 2.3 0.0 - 4.5 04/02/2020 2:56 PM CDT [facility] VLDL CALCULATION 22 5 - 55 MG/DL 04/02/2020 2:56 PM CDT [facility] LIPID INTERPRETATION 04/02/2020 2:56 PM CDT [facility] Comment: NIH CONCENSUS REPORT RECOMMENDATIONS: ADULT CHILD LOW RISK: CHOLESTEROL <200 <170 TRIGLYCERIDE <150 --- HDL >=60 --- LDL <100 <110 BORDERLINE: CHOLESTEROL 200-239 170-199 TRIGLYCERIDE 150-199 --- HDL 40-59 --- LDL 100-159 110-129 HIGH RISK: CHOLESTEROL >=240 >=200 TRIGLYCERIDE >=200 --- HDL <40 --- LDL >=160 >=130 04/02/2020 11:0 5 AM CDT Paulette Pedraaz MD LABORATORY Final Result [facility] () [facility] [address] [place] [address], * Colonoscopy (07/15/2015 12:00 AM CDT) 07/15/2015 07/15/2015 Narrative [facility] TO EPIC CONVERSION - 07/15/2015 12:00 AM CDT Documented hx of procedure Procedure Note Kavitha Parker MD - 08/18/2018 Documented hx of procedure us [...] 11:10 AM 10/31/2019 12:32 AM Care Teams Master Pilot Relationship Specialty Start Date End Date Lee Mendez MD INTERNAL MEDICINE 09/03/19
--- OUTSIDE RECORDS SUMMARY | 2025-02-02 13:40 | XMS_ITS | Encounter Summary ---
Author Organization [facility] Address [address] [place] [address] Care Team Providers Care Senior Windows Systems Engineer Name Role Phone Paulette Pedraza MD Primary Care Provider [phone] New Referring, Provider Primary Care Provider Un available Paulette Pedraza MD Unavailable [phone] Lee Mendez MD Unavailable [phone] Paulette Pedraza MD Primary Care Provider + [phone] Encounter Details Date Type Department Care Team (Late st Contact Info) Description 05/15/2018 Abstract [facility] Family & Internal Medicine [facility] [address] [place] [address] [place] [id number] [place] [address] Social History Tobacco Use Types Packs/Day [...] on filedocumented in this encounter Care Teams Senior Windows Systems Engineer Relationship Specialty Start Date End Date Paulette Pedraza MD PCP - General 11/28/16 09/01/19 New Referring, Provider PCP - General UNKNOWN PHYSICIAN SPECIALTY 09/02/19 02/09/20 Paulette Pedraza MD PCP - General INTERNAL MEDICINE 02/10/20 01/04/21 Paulette Pedraza MD 09/02/19 01/04/21 Lee Mendez MD INTERNAL MEDICINE 09/03/19 documented as of this encounter
--- OUTSIDE RECORDS SUMMARY | 2025-02-02 13:41 | XMS_ITS | Encounter Summary ---
Author Organization [facility] Address [address] [facility] [place] [address] Care Team Providers Care Independent Contractor Name Role Phone Angel Guerra MD Primary Care Provider Reason for Visit * Reason Onset Date Comments Refill Request 09/26/2023 Encounter Details Date Type Department Care Team (Late st Contact Info) Description 09/26/2023 Telephone [facility] [address] [facility], [place] [address] Trisha Bray MD [address] [place] [address] Refill Request Social History Tobacco Use Types Packs/Day Years Used Date Smoking Tobacco: Every Day Cigarettes Smokeless Tobacco: Current Alcohol Use Standard Drinks/Week Comments No 0 (1 standard drink = 0.6 oz pur e alcohol) PHQ-2 Answer Date Recorded Patient Health Questionnaire-2 Score 0 09/26/2023 Comments Unknown Sex and Gender Information Value Date Recorded Sex Assigned at Not on file Legal Sex Female 5:13 PM DECAL CUTTER Gender Identity Not on file Sexual Orientation Not on file documented as of this encounter Functional Status * Over the past 2 weeks, how often have you been bothered by any of the following problems? Question Answer Date of Assessment Author Little interest or pleasure in doing things Not at all 09/26/2023 2:48 PM Nelida Khan RN Feeling down, depressed, or hopeless Not at all 09/26/2023 2:48 PM DECAL CUTTER Nelida Carrasco RN Patient Health Questionnaire -2 Score 0 09/26/2023 2:48 PM DECAL CUTTER Nelida Carrasco RN documented as of this encounter Miscellaneous Notes * Telephone Encounter - Trisha Bray MD - 09/26/2023 4:40 PM CST Spoke with [facility]. Gave verbal order to renew gamunex C 50g [id number], and add 500cc NS bolus Trisha Bray MD Allergy & Immunology Fellow L CUTTER documented in this encounter Plan of Treatment Upcoming Encounters Date Type Department Care Team (Late st Contact Info) Description 2025 3:00 PM DECAL CUTTER Office Visit [facility] [address] [place] [address], [place] [address] Lee Mendez MD [address] [place] [address] [address] DIV OF ALLERGY/[place] [address] documented as of this encounter Visit Diagnoses Not on filedocumented in this encounter Care Teams Independent Contractor Relationship Specialty Start Date End Date Angel Guerra MD [address] [place] [address] PCP - General 01/11/22 documented as of this encounter
--- OUTSIDE RECORDS SUMMARY | 2025-02-02 13:41 | XMS_ITS | Encounter Summary ---
Author Organization [facility] Address [address] [place] [address] Care Team Providers Care Electronics Maintenance Technician Name Role Phone Paulette Pedraza MD Primary Care Provider [phone] New Referring, Provider Primary Care Provider Un available Paulette Pedraza MD Unavailable [phone] Lee Mendez MD Unavailable [phone] Paulette Pedraza MD Primary Care Provider + [phone] Encounter Details Date Type Department Care Team (Latest Contact Info) Description 06/27/2018 Abstract [facility] [place] [address] [place] [address] Social History Tobacco Use Types [...] on filedocumented in this encounter Care Teams Electronics Maintenance Technician Relationship Specialty Start Date End Date Paulette Pedraza MD PCP - General 11/28/16 09/01/19 New Referring, Provider PCP - General UNKNOWN PHYSICIAN SPECIALTY 09/02/19 02/09/20 Paulette Pedraza MD PCP - General INTERNAL MEDICINE 02/10/20 01/04/21 Paulette Pedraza MD 09/02/19 01/04/21 Lee Mendez MD INTERNAL MEDICINE 09/03/19 documented as of this encounter
--- OUTSIDE RECORDS SUMMARY | 2025-02-02 13:41 | XMS_ITS | Encounter Summary ---
Author Organization [facility] Address [address] [facility] [place] [address] Care Team Providers Care Counseling Aide Name Role Phone Angel Guerra MD Primary Care Provider [phone] Reason for Visit * Reason Onset Date Comments Medication Problem 10/04/2023 Encounter Details Date Type Department Care Team (Late st Contact Info) Description 10/04/2023 Telephone [facility] [address] [facility], [facility] [place] [address] Trisha Bray MD [address] [place] [address] Medication Problem Social History Tobacco Use Types [...] on file Legal Sex Female 5:13 PM VESSEL LINER Gender Identity Not on file Sexual Orientation Not on file documented as of this encounter Miscellaneous Notes * Telephone Encounter - Trisha Bray MD - 10/04/2023 2:44 PM CST Wrote medical appeal letter to approve gamunex for hypogammaglobulinemia Trisha Bray MD Allergy & Immunology Fellow EL LINER documented in this encounter Plan of Treatment Upcoming Encounters Date Type Department Care Team (Late st Contact Info) Description 2025 3:00 PM VESSEL LINER Office Visit [facility] [address] [place] [address], [place] [address] Lee Mendez MD [address] [place] [address] DIV OF ALLERGY/[place] [address] documented as of this encounter Visit Diagnoses Not on filedocumented in this encounter Care Teams Counseling Aide Relationship Specialty Start Date End Date Angel Guerra MD [address] [place] [address] PCP - General 01/11/22 documented as of this encounter
--- OUTSIDE RECORDS SUMMARY | 2025-02-02 13:41 | XMS_ITS | Encounter Summary ---
Author Organization [facility] Address [address] [facility] [place] [address] Care Team Providers Care Bullet Lubricating Machine Operator Name Role Phone Angel Guerra MD Primary Care Provider Reason for Visit * Reason Onset Date Comments Results 10/01/2023 Encounter Details Date Type Department Care Team (Late st Contact Info) Description 10/01/2023 Telephone [facility] [address] [facility], [place] [address] Trisha Bray MD [address] [place] [address] Results Social History Tobacco Use Types Packs/Day [...] on file Legal Sex Female 5:13 PM LEGAL TRANSCRIPTIONIST Gender Identity Not on file Sexual Orientation [...] mg/dL 302 272 R, CM Resulting Agency [facility] Parameters Male Ref. Range Female Ref. Range 09/26/23 WBC [phone] 2600-86102 8200 Lymphocytes % 21-48 18-54 19 Lymphocytes [id number] 9241-7108 1558 CD3+ % 75-80 76-78 65 CD3 3317-8360 3613-8440 1013 CD3+CD4+ % (CD4 T cells) 34-61 26-62 38 CD3+CD4+ 564-5976 836-5264 592 CD3+CD8+ % (CD8 T cells) 16-38 14-44 27 CD3+CD8+ 314-997 177-6281 421 CD4:CD8 Ratio 0.97-3.71 0.6-4.4 1.41 CD19 [...] + IgD+ % (Non-switch Memory B cells) 2- 2-25 33 CD19 & CD27 + IgD+ 4- 57 CD19 & CD27 + IgD- % (Class-switch Memory B cells) 3- 3- 33 CD19 & CD27 + IgD- - 57 CD19 & CD27 - IgD+ % (Na ve B cells) 29- 77 CD19 & CD27 - IgD+ 33423 33-423 132 References: Fabian Cody, Ivy Hitchcock., Pura Adams, Pura Daigle, Harry Quinn, & Ev Watts (2014). Reference ranges of lymphocyte subsets in healthy adults and adolescents with special mention of T cell maturation subsets in adults of [facility]. Immunobiology, 219(7), 487-496. Matheus Randle, Matheus Ceja, [...] Bray MD Allergy & Immunology Fellow L TRANSCRIPTIONIST documented in this encounter Plan of Treatment Upcoming Encounters Date Type Department Care Team (Late st Contact Info) Description 2025 3:00 PM LEGAL TRANSCRIPTIONIST Office Visit [facility] [address] [place] [address], [place] [address] Lee Mendez MD [address] [place] [address] DIV OF ALLERGY/[place] [address] documented as of this encounter Visit Diagnoses Not on filedocumented in this encounter Care Teams Bullet Lubricating Machine Operator Relationship Specialty Start Date End Date Angel Guerra MD [address] [place] [address] PCP - General 01/11/22 documented as of this encounter
--- OUTSIDE RECORDS SUMMARY | 2025-02-02 13:41 | XMS_ITS | Clinical Summary ---
Author Organization [facility] Address [address] [place] [address] Care Team Providers Care Laundry Marker Supervisor Name Role Phone Angel Guerra MD Primary Care Provider [phone] Source Comments [facility],non-owned Affiliates and Associated Physician Practices is amultiple site organization consisting of ambulatory clinics and hospital sitesin [place], [place], [place] and [place]. This disclosure is being madepursuant to the Care Everywhere program and may not contain all information available regarding this patient. Last updated 18.[facility] Allergies Active Allergy Reactions Criticality Noted Date Comments Sulfa Drugs Other Low 02/07/2017 Malaise Medications * Be aware that medications may not be up to date on this document. Alwaysverify current medications with the patient. levothyroxine (SYNTHROID) 50 MCG tablet Take 1 (one) tablet by mouth daily before breakfast 7 Active potassium chloride (KLOR-CON) 10 MEQ tablet Take 1 (one) tablet by mouth once 7 Active oxyCODONE-aceta minophen (PERCOCET) 10-325 MG tablet TK 1 T PO Q 4 TO 6 H PRN 0 8 Active metoprolol tartrate (LOPRESSOR) 50 MG tablet Take 1 (one) tablet by mouth DAILY 0 7 Active atorvastatin (LIPITOR) 40 MG tablet Take 1 (one) tablet by mouth DAILY 7 Active estradiol (ESTRACE) 2 MG tablet Take 1 (one) tablet by mouth DAILY 0 7 Active aspirin (ASPIRIN) 81 MG tablet Take 1 (one) tablet by mouth DAILY 7 Active albuterol HFA (Ventolin HFA) 108 (90 Base) MCG/ACT inhaler Inhale 2 (two) puffs by mouth every 4 hours as needed 18 g 11 2 Active famotidine (Pepcid) 40 MG tablet TAKE 1 TABLET BY MOUTH EVERY DAY 60 tablet 5 4 Active Immune Globulin, Human, (immune globulin, GAMUNEX-C,) 500 mL by Intravenous route every 30 days 500 mL 11 4 Active Blood Glucose Monitoring Suppl (Applied MicroStructures Verio Flex System) w/Device KIT USE TO CHECK BLOOD GLUCOSE THREE TIMES DAILY 3 Active Breztri Aerosphere 160-9-4.8 MCG/ACT inhaler INHALE 2 PUFFS BY MOUTH IN THE MORNING AND IN THE EVENING. RINSE MOUTH WITH WATER. DO NOT SWALLOW WATER 4 Active Jardiance 25 MG tablet Take 1 (one) tablet by mouth once daily Active fenofibrate (Lofibra) 160 MG tablet Take 1 (one) tablet by mouth once daily 4 Active FLUoxetine (PROzac) 20 MG tablet Take 1 (one) tablet by mouth once daily 4 Active furosemide (Lasix) 40 MG tablet Take 1 (one) tablet by mouth 2 times daily as needed 3 Active gabapentin (Neurontin) 400 MG capsule Take 1 (one) capsule by mouth 3 times daily Active Applied Micro[employer] Verio test strip TEST BLOOD SUGARS THREE TIMES DAILY 4 Active TRUEplus 5-Bevel Pen Seibert 32G X 4 MM [facility] USE TO INJECT VICTOZA EVERY DAY 4 Active albuterol-iprat ropium (Duo-Neb) 0.5-2.5 (3) MG/3ML nebulizer solution USE 1 VIAL VIA NEBULIZER FOUR TIMES DAILY FOR SHORTNESS OF BREATH Active Lancets (BookigeeTOUCH DELICA PLUS 33G EXTRA FINE LANCET) USE TO CHECK BLOOD GLUCOSE THREE TIMES DAILY 3 Active Victoza 18 MG/3ML pen ADMINISTER 1.8 MG UNDER THE SKIN EVERY DAY Active traZODone (Desyrel) 100 MG tablet Take 1 (one) tablet by mouth at bedtime Active azelastine (Astelin) 0.1 % nasal spray Midway 2 (two) sprays into each nostril 2 times daily 30 mL 11 4 Active Active Problems Problem Noted Date Diagnosed [...] 11/05/2024 Telephone [facility] [address] [place] [address], [facility] [place] [address] Lee Mendez MD Refill Request (Gamunex IVIG) from Last 3 Months Social History Tobacco [...] on file Legal Sex Female 5:13 PM FINANCIAL HEALTH COUNSELOR Gender Identity Not on file Sexual Orientation Not on file Last Filed Vital Signs Vital Sign Reading Time Taken Comments Blood Pressure 114/70 08/29/2024 10:52 AM FINANCIAL HEALTH COUNSELOR Pulse 58 08/29/2024 10:52 AM FINANCIAL HEALTH COUNSELOR Temperature 36.3 C (97.4 F) 08/29/2024 10:52 AM FINANCIAL HEALTH COUNSELOR Respiratory Rate 18 09/26/2023 2:53 PM FINANCIAL HEALTH COUNSELOR Oxygen Saturation 93% 08/29/2024 10:52 AM FINANCIAL HEALTH COUNSELOR Inhaled Oxygen Concentration - - Weight 62.3 kg (137 lb 6.4 oz) 08/29/2024 10:52 AM FINANCIAL HEALTH COUNSELOR Height 160 cm (5' 3 ) 08/29/2024 10:52 AM FINANCIAL HEALTH COUNSELOR Body Mass Index 24.34 08/29/2024 10:52 AM FINANCIAL HEALTH COUNSELOR Plan of Treatment Upcoming Encounters Date Type Department Care Team (Late st Contact Info) Description 2025 3:00 PM FINANCIAL HEALTH COUNSELOR Office Visit [facility] [address] [place] [address], [place] [address] Lee Mendez MD [address] [place] [address] OF ALLERGY/[place] [address] Health Maintenance Due Date Last Done Comments [...] 2022 COVID-19 VACCINE ( - season) 2024 DEPRESSION SCREENING 10/15/2024 09/26/2023, 06/07/20 INFLUENZA VACCINE (Season Ended) 2025 08/05/2019, 07/25/2018, 08/01/2017, Additional history exists HEPATITIS B VACCINE Aged Out No longe [...] on patient's age to complete this topic Insurance Care Teams Laundry Marker Supervisor Relationship Specialty Start Date End Date Angel Guerra MD [address] [place] [address] PCP - General 01/11/22
--- OUTSIDE RECORDS SUMMARY | 2025-02-02 13:41 | XMS_ITS | Encounter Summary ---
Author Organization [facility] Address [address] [place] [address] Care Team Providers Care Surveillance Inspector Name Role Phone Paulette Pedraza MD Primary Care Provider + [phone] Angel Guerra MD Primary Care Provider + [phone] Reason for Visit * Reason Onset Date Comments Refill Request 07/25/2018 Encounter Details Date Type Department Care Team (Late st Contact Info) Description 07/25/2018 Telephone [facility] [address] [place] [address] Js Khan DO [address] [place] [address] Refill Request Social History Tobacco Use Types Packs/Day Years Used Date Smoking Tobacco: Every Day Cigarettes Smokeless Tobacco: Current Alcohol Use Standard Drinks/Week Comments No 0 (1 standard drink = 0.6 oz pur e alcohol) Comments Unknown Sex and Gender Information Value Date Recorded Sex Assigned at Not on file Legal Sex Female 5:13 PM CTO Gender Identity Not on file Sexual Orientation Not on file documented as of this encounter Miscellaneous Notes * Telephone Encounter - Js Khan DO - 07/25/2018 11:11 AM CDT Received home certification request from [facility]. documented in this encounter Plan of Treatment Upcoming Encounters Date Type Department Care Team (Late st Contact Info) Description 2025 3:00 PM CTO Office Visit [facility] - Allergy [address] [place] [address], [place] [address] Lee Mendez MD [address] [place] [address] 2L DIV OF ALLERGY/[place] [address] documented as of this encounter Visit Diagnoses Not on filedocumented in this encounter Care Teams Surveillance Inspector Relationship Specialty Start Date End Date Paulette Pedraza MD PCP - General 12/26/16 01/10/22 Angel Guerra MD [address] [place] [address] PCP - General 01/11/22 documented as of this encounter
--- OUTSIDE RECORDS SUMMARY | 2025-02-02 13:42 | XMS_ITS | Encounter Summary ---
Author Organization [facility] Address [address] [facility] [place] [address] Care Team Providers Care Steward Racetrack Name Role Phone Paulette Pedraza MD Primary Care Provider + [phone] Angel Guerra MD Primary Care Provider + [phone] Reason for Visit * Reason Onset Date Comments Results 01/15/2019 Encounter Details Date Type Department Care Team (Late st Contact Info) Description 01/15/2019 Telephone [facility] [address] [place] [address] Js Dubon DO [address] [place] [address] Results Social History Tobacco Use Types Packs/Day Years Used Date Smoking Tobacco: Every Day Cigarettes Smokeless Tobacco: Current Alcohol Use Standard Drinks/Week Comments No 0 (1 standard drink = 0.6 oz pur e alcohol) Comments Unknown Sex and Gender Information Value Date Recorded Sex Assigned at Not on file Legal Sex Female 5:13 PM CREATIVE WRITING TEACHER Gender Identity Not on file Sexual Orientation Not on file documented as of this encounter Miscellaneous Notes * Telephone Encounter - Js Dubon DO - 01/15/2019 5:07 PM CDT Received lab results from [facility]. 01/06/2019 IgG 642, Creatine 0.62, eGFR > [...] st Contact Info) Description 2025 3:00 PM CREATIVE WRITING TEACHER Office Visit [facility] - Allergy [address] [place] [address], [place] [address] Lee Mendez MD [address] [place] [address] OF ALLERGY/[place] [address] documented as of this encounter Visit Diagnoses Diagnosis Hypogammaglobulinemia (HCC)- Primary Hypogammaglobulinaemia, unspecified documented in this encounter Care Teams Steward Racetrack Relationship Specialty Start Date End Date Paulette Pedraza MD PCP - General 12/26/16 01/10/22 Angel Guerra MD [address] [place] [address] PCP - General 01/11/22 documented as of this encounter
--- OUTSIDE RECORDS SUMMARY | 2025-02-02 13:42 | XMS_ITS | Encounter Summary ---
Author Organization [facility] Address [address] [place] [address] Care Team Providers Care Commercial Leasing Agent Name Role Phone Paulette Pedraza MD Primary Care Provider + [phone] Angel Guerra MD Primary Care Provider + [phone] Encounter Details Date Type Department Care Team (Late st Contact Info) Description 08/05/2021 Telephone [facility] [address] [place] [address] Lee Mendez MD [facility] OF [place]GY[place] [address] Social History Tobacco Use Types Packs/Day Years Used Date Smoking Tobacco: Every Day Cigarettes Smokeless Tobacco: Current Alcohol Use Standard Drinks/Week Comments No 0 (1 standard drink = 0.6 oz pur e alcohol) PHQ-2 Answer Date Recorded PHQ2 TOTAL SCORE 0 07/27/2021 Comments Unknown Sex and Gender Information Value Date Recorded Sex Assigned at Not on file Legal Sex Female 5:13 PM FOUNTAIN MANAGER Gender Identity Not on file Sexual Orientation Not on file documented as of this encounter Patient Instructions * Patient Instructions* Jessica Armijo - 08/05/2021 11:44 AM CDT Pt is calling to get her Gamunex re certified by Dr Mendez documented in this encounter Plan of Treatment Upcoming Encounters Date Type Department Care Team (Late st Contact Info) Description 2025 3:00 PM FOUNTAIN MANAGER Office Visit [facility] - [facility]ergy [address] [place] [address], [place] [address] Lee Mendez MD [address] [place] [address] 2L DIV [place]ERGY/[place] [address] documented as of this encounter Visit Diagnoses Not on filedocumented in this encounter Care Teams Commercial Leasing Agent Relationship Specialty Start Date End Date Paulette Pedraza MD PCP - General 12/26/16 01/10/22 Angel Guerra MD [address] [place] [address] PCP - General 01/11/22 documented as of this encounter
--- OUTSIDE RECORDS SUMMARY | 2025-02-02 13:42 | XMS_ITS | Encounter Summary ---
Author Organization [facility] Address [address] [facility] [place] [address] Care Team Providers Care Store Receiving Clerk Name Role Phone Paulette Pedraza MD Primary Care Provider + [phone] Angel Guerra MD Primary Care Provider + [phone] Encounter Details Date Type Department Care Team (Late st Contact Info) Description 06/15/2020 Telephone [facility] [address] [place] [address] Lee Mendez MD [address] OF ALLERGY/[place] [address] Social History Tobacco Use Types Packs/Day Years Used Date Smoking Tobacco: Every Day Cigarettes Smokeless Tobacco: Current Alcohol Use Standard Drinks/Week Comments No 0 (1 standard drink = 0.6 oz pur e alcohol) Comments Unknown Sex and Gender Information Value Date Recorded Sex Assigned at Not on file Legal Sex Female 5:13 PM POST ACUTE CARE REGISTERED NURSE Gender Identity Not on file Sexual Orientation Not on file documented as of this encounter Miscellaneous Notes * Telephone Encounter - Galina Grayson - 06/15/2020 3:21 PM CDT Current Provider [...] to July 03, 2020 Please call. Thanks. Patiient Call Back number: [phone] documented in this encounter Plan of Treatment Upcoming Encounters Date Type Department Care Team (Late st Contact Info) Description 2025 3:00 PM POST ACUTE CARE REGISTERED NURSE Office Visit [facility] [address] [place] [address], [place] [address] Lee Mendez MD [address] [place] [address] DIV OF ALLERGY/[place] [address] documented as of this encounter Visit Diagnoses Not on filedocumented in this encounter Care Teams Store Receiving Clerk Relationship Specialty Start Date End Date Paulette Pedraza MD PCP - General 12/26/16 01/10/22 Angel Guerra MD [address] [place] [address] PCP - General 01/11/22 documented as of this encounter
--- OUTSIDE RECORDS SUMMARY | 2025-02-02 13:42 | XMS_ITS | Encounter Summary ---
Author Organization [facility] Address [address] [place] [address] Care Team Providers Care Horse Trader Name Role Phone Paulette Pedraza MD Primary Care Provider + [phone] Angel Guerra MD Primary Care Provider + [phone] Encounter Details Date Type Department Care Team (Late st Contact Info) Description 08/09/2021 Telephone [facility] [address] [place] [address] Lee Mendez MD [facility] [address] OF ALLERGY/[place] [address] Social History Tobacco Use Types Packs/Day Years Used Date Smoking Tobacco: Every Day Cigarettes Smokeless Tobacco: Current Alcohol Use Standard Drinks/Week Comments No 0 (1 standard drink = 0.6 oz pur e alcohol) PHQ-2 Answer Date Recorded PHQ2 TOTAL SCORE 0 07/27/2021 Comments Unknown Sex and Gender Information Value Date Recorded Sex Assigned at Not on file Legal Sex Female 5:13 PM PREFLIGHT MECHANIC Gender Identity Not on file Sexual Orientation Not on file documented as of this encounter Patient Instructions * Patient Instructions* Lore Amezquita - 08/09/2021 1:14 PM CDT Patient called and would like to talk to Dr. Mendez's nurse in regards to her medication needing to be certified. Contact number is [phone]. documented in this encounter Plan of Treatment Upcoming Encounters Date Type Department Care Team (Late st Contact Info) Description 2025 3:00 PM PREFLIGHT MECHANIC Office Visit [facility] [address] [place] [address], [place] [address] Lee Mendez MD [address] [place] [address] DIV OF ALLERGY/[place] [address] documented as of this encounter Visit Diagnoses Not on filedocumented in this encounter Care Teams Horse Trader Relationship Specialty Start Date End Date Paulette Pedraza MD PCP - General 12/26/16 01/10/22 Angel Guerra MD [address] [facility] [address] [place] [address] PCP - General 01/11/22 documented as of this encounter
--- OUTSIDE RECORDS SUMMARY | 2025-02-02 13:42 | XMS_ITS | Encounter Summary ---
Author Organization [facility] Address [address] [address] Care Team Providers Care It Applications Analyst Name Role Phone Paulette Pedraza MD Primary Care Provider + [phone] Angel Guerra MD Primary Care Provider + [phone] Encounter Details Date Type Department Care Team (Late st Contact Info) Description 07/27/2021 Telephone [facility] [address] [place] [address] Lee Mendez MD [facility] OF ALLERGY/[place] [address] Social History Tobacco Use Types Packs/Day Years Used Date Smoking Tobacco: Every Day Cigarettes Smokeless Tobacco: Current Alcohol Use Standard Drinks/Week Comments No 0 (1 standard drink = 0.6 oz pur e alcohol) PHQ-2 Answer Date Recorded PHQ2 TOTAL SCORE 0 07/27/2021 Comments Unknown Sex and Gender Information Value Date Recorded Sex Assigned at Not on file Legal Sex Female 5:13 PM VP INFORMATICS Gender Identity Not on file Sexual Orientation Not on file documented as of this encounter Patient Instructions * Patient Instructions* Mervat Good - 07/27/2021 12:01 PM CDT Please call patient today for her telephone appt. At [phone]. Thank you documented in this encounter Plan of Treatment Upcoming Encounters Date Type Department Care Team (Late st Contact Info) Description 2025 3:00 PM VP INFORMATICS Office Visit [facility] [address] [place] [address], [place] [address] Lee Mendez MD [address] [place] [address] DIV OF ALLERGY/[place] [address] documented as of this encounter Visit Diagnoses Not on filedocumented in this encounter Care Teams It Applications Analyst Relationship Specialty Start Date End Date Paulette Pedraza MD PCP - General 12/26/16 01/10/22 Angel Guerra MD [address] [place] [address] PCP - General 01/11/22 documented as of this encounter
== END 2025-02-02 12:05 | disposition home or self-care (01) ==
PROVIDERS: PCP Registered Nurse; Visit Provider Nurse Practitioner Family
DX: Z12.2 Encounter for screening for malignant neoplasm of respiratory organs (principal); Z87.891 Personal history of nicotine dependence
CPT/HCPCS: 71271

== ENCOUNTER 2025-03-27 18:57 | Observation (INO) | payer OTHER, SELFPAY ==
[2025-03-27] VITALS (12 sets, daily range): BP systolic 123–157; BP diastolic 50–99; PULSE 77–95; RESP 16–22; O2SAT 87–100
--- NOTE | ~2025-03-27 | NM_ITS ---
EXAMINATION: NM sherrill stress w perfusion DATE: 03/30/2025 12:20 INDICATION: Chest pain TECHNIQUE: Rest images were obtained following intravenous administration of 10.2 mCi Tc99m tetrofosm in (Myoview). The patient was infused intravenously with Lexiscan (Regadenoson). Then, 33.6 mCi Tc99m tetrofosmin (Myoview) was administered intravenously, and stress images were obtained. Data was mehdi nstructed into short axis and horizontal and vertical long axis SPECT images. Gated SPECT images were also obtained. COMPARISON: None. FINDINGS: No reversible mild perfusion defect consistent with infarct involving the apical septal, ap ical inferior, mid anteroseptal, mid inferoseptal and mid inferior segments. There is normal left ve ntricular chamber size, wall motion and ejection fraction. Left ventricular ejection fraction measur es >70%. IMPRESSION: 1. 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 No reversible ischemia.. 2. Left ventricular ejection fraction measuring >70%. Reviewed, dictated and finalized at location A. IMPRESSION: 1. Moderate-sized mild infarct involving primarily the right coronary artery va scular distribution as detailed above. No reversible ischemia.. 2. Left ventricular ejection fraction measuring >70%.
--- NOTE | ~2025-03-27 | XR_ITS ---
XR chest 1V portable Ordering provider: Mckenzie Shelby MD History: 64 years Female with . TIFFANIE . Comparison: January 02, 2025 FINDINGS: MEDIASTINUM: The cardiac silhouette is not enlarged. LUNGS: No infiltrates, effusions or pneumothorax. OTHER: No free air under the diaphragm. Degenerative changes of the spine. IMPRESSION: No acute cardiopulmonary pathology Reviewed, dictated and finalized at location A.
--- NOTE | 2025-03-27 19:03 | ECG_ITS ---
Test Date: 2025-03-27 19:06:53 Measurements Intervals [place]ister Rate: 78 P: 78 NC: 207 QRS: 39 QRSD: 87 T: 57 QT: 351 QTc: 400 Interpretive Statements SINUS RHYTHM WITH FIRST DEGREE AV BLOCK CANNOT R/O SEPTAL INFARCT, AGE INDETERMINATE ABNORMAL ECG Compared to ECG 01/01/2025 01:52:20 NO SIGNIFICANT CHANGE Electronically Signed On 03-27-2025 19:57:47 CDT by Channing Mckeon D.O.
[2025-03-27 19:19] LABS: Basophils Percent Auto 0.3 % (0.2-1.2); Eosinophils Absolute Auto 0.1 K/mm3 (0-0.3); Hematocrit 41.2 % (37.0-47.0); Immature Granulocyte Absolute 0.01 K/mm3 (0.00-0.031); Immature Granulocyte Percent A 0.2 % (0-0.5); Lymphocytes Absolute Auto 1.01 K/mm3 (0.9-3.2); Lymphocytes Percent Auto 16.4 % (18.3-44.2); Mean Corpuscular HGB Conc 31.6 g/dl (32-36); Mean Corpuscular Hemoglobin 27.9 pg (26-34); Mean Corpuscular Volume 88.4 fl (80-100); Mean Platelet Volume 9.3 fl (7.4-10.4); Monocytes Absolute Auto 0.4 K/mm3 (0.1-0.6); Monocytes Percent Auto 6.2 % (2.6-8.5); Neutrophils Absolute Auto 4.7 K/mm3 (1.3-6.7); Neutrophils Percent Auto 75.9 % (45.5-73.1); Platelet Count Result 146 k/mm3 (150-375); Red Blood Count 4.66 M/mm3 (4.2-5.4); Red Cell Distribution Width 14.3 % (11.5-14.5); White Blood Count 6.2 K/mm3 (4.5-10.0)
--- OUTSIDE RECORDS SUMMARY | 2025-03-27 19:22 | XMS_ITS | Encounter Summary ---
Author Organization [facility] Address [address] [place] [address] Care Team Providers Care Fisheries Technical Officer Name Role Phone Paulette Pedraza MD Primary Care Provider + [phone] Angel Guerra MD Primary Care Provider + [phone] Reason for Visit * Reason Onset Date Comments Refill Request 07/25/2018 Encounter Details Date Type Department Care Team (Late st Contact Info) Description 07/25/2018 Telephone [facility] [address] [place] [address] Js Khan DO [address] [place] [address] Refill Request Social History Tobacco Use Types Packs/Day Years Used Date Smoking Tobacco: Every Day Cigarettes Smokeless Tobacco: Current Alcohol Use Standard Drinks/Week Comments No 0 (1 standard drink = 0.6 oz pur e alcohol) Comments Unknown Sex and Gender Information Value Date Recorded Sex Assigned at Not on file Legal Sex Female 5:13 PM PURCHASING OFFICER Gender Identity Not on file Sexual Orientation Not on file documented as of this encounter Miscellaneous Notes * Telephone Encounter - Js Khan DO - 07/25/2018 11:11 AM CDT Received home certification request from [facility]. documented in this encounter Plan of Treatment Upcoming Encounters Date Type Department Care Team (Late st Contact Info) Description 2025 3:00 PM PURCHASING OFFICER Office Visit [facility] Allergy [address] [place] [address], [place] [address] Lee Mendez MD [address] [place] [address] 2L DIV OF ALLERGY/[place] [address] documented as of this encounter Visit Diagnoses Not on filedocumented in this encounter Care Teams Fisheries Technical Officer Relationship Specialty Start Date End Date Paulette Pedraza MD PCP - General 12/26/16 01/10/22 Angel Guerra MD [address] [place] [address] PCP - General 01/11/22 documented as of this encounter
--- OUTSIDE RECORDS SUMMARY | 2025-03-27 19:23 | XMS_ITS | Clinical Summary ---
Author Organization [facility] [employer] Address [address] [place] [address] Care Team Providers Care Graphite Pan Drier Tender Name Role Phone Angel Guerra MD Primary Care Provider Source Comments [facility],non-owned Affiliates and Associated Physician Practices is amultiple site organization consisting of ambulatory clinics and hospital sitesin [place], [place], [place] and [place]. This disclosure is being madepursuant to the Care Everywhere program and may not contain all information available regarding this patient. Last updated 18.[facility] [employer] Allergies Active Allergy Reactions Criticality Noted Date [...] 11 4 Active Blood Glucose Monitoring Suppl ([employer] Verio Flex System) w/Device KIT USE TO [...] capsule by mouth 3 times daily Active [employer] Verio test strip TEST BLOOD SUGARS THREE TIMES DAILY 4 Active TRUEplus 5-Bevel Pen Weare 32G X 4 MM [facility] USE TO INJECT VICTOZA EVERY DAY 4 Active albuterol-iprat ropium (Duo-Neb) 0.5-2.5 (3) MG/3ML nebulizer solution USE 1 VIAL VIA NEBULIZER FOUR TIMES DAILY FOR SHORTNESS OF BREATH Active Lancets (Maker StudiosTOUCH DELICA PLUS 33G EXTRA FINE LANCET) USE TO CHECK BLOOD GLUCOSE THREE TIMES DAILY 3 Active Victoza 18 MG/3ML pen ADMINISTER 1.8 MG UNDER THE SKIN EVERY DAY Active traZODone (Desyrel) 100 MG tablet Take 1 (one) tablet by mouth at bedtime Active azelastine (Astelin) 0.1 % nasal spray [place] 2 (two) sprays into each nostril 2 [...] Encounters Date Type Department Care Team Description 03/23/2025 Telephone [facility] - [facility]ious Disease [address] [place] [address], [facility] [place] [address] Lee Mendez MD Medication Prior Auth Request from Last 3 Months Social History Tobacco [...] on file Legal Sex Female 5:13 PM BRINE PURIFIER Gender Identity Not on file Sexual Orientation Not on file Last Filed Vital Signs Vital Sign Reading Time Taken Comments Blood Pressure 114/70 08/29/2024 10:52 AM BRINE PURIFIER Pulse 58 08/29/2024 10:52 AM BRINE PURIFIER Temperature 36.3 C (97.4 F) 08/29/2024 10:52 AM BRINE PURIFIER Respiratory Rate 18 09/26/2023 2:53 PM BRINE PURIFIER Oxygen Saturation 93% 08/29/2024 10:52 AM BRINE PURIFIER Inhaled Oxygen Concentration - - Weight 62.3 kg (137 lb 6.4 oz) 08/29/2024 10:52 AM BRINE PURIFIER Height 160 cm (5' 3) 08/29/2024 10:52 AM BRINE PURIFIER Body Mass Index 24.34 08/29/2024 10:52 AM BRINE PURIFIER Plan of Treatment Upcoming Encounters Date Type Department Care Team (Late st Contact Info) Description 2025 3:00 PM BRINE PURIFIER Office Visit [facility]ergy [address] [place] [address], [place] [address] Lee Mendez MD [address] [place] [address] DIV OF ALLERGY/[place] [address] Health Maintenance Due Date Last Done Comments COLOGUARD (AGES 45-75) - COLON CA SCREENING 1962 COLON MONITORING 1962 COLONOSCOPY - COLON CA SCREENING 1962 CT COLONOGRAPHY - COLON CA SCREENING 1962 Colorectal Cancer Screening 1962 FIT - COLON CA SCREENING 1962 FLEX SIG - COLON CA SCREENING 1962 MAMMOGRAM 1962 HIV SCREENING 1977 HEPATITIS C SCREENING 08/28/1980 DTAP/TDAP/TD VACCINES (1 - Tdap) 1981 PNEUMOCOCCAL VACCINE 50+ (1 of 2 - PCV) 1981 PAP SMEAR 1983 ZOSTER VACCINE (1 of 2) 2012 Respiratory [...] patient's age to complete this topic [place] [place] [address] [facility] Care Teams Graphite Pan Drier Tender Relationship Specialty Start Date End Date Angel Guerra MD [address] [place] [address] PCP - General 01/11/22
--- OUTSIDE RECORDS SUMMARY | 2025-03-27 19:23 | XMS_ITS | Encounter Summary ---
Author Organization [facility] Address [address] [facility] [place] [address] Care Team Providers Care Costume Shop Coordinator Name Role Phone Angel Guerra MD Primary Care Provider Reason for Visit * Reason Onset Date Comments Results 10/01/2023 Encounter Details Date Type Department Care Team (Late st Contact Info) Description 10/01/2023 Telephone [facility] [address] [facility], [place] [address] Trisha Bray MD [address] [place] [address] Results Social History Tobacco Use Types Packs/Day [...] on file Legal Sex Female 5:13 PM PIPE FITTER MAINTENANCE Gender Identity Not on file Sexual Orientation [...] mg/dL 302 272 R, CM Resulting Agency [facility] Parameters Male Ref. Range Female Ref. Range 09/26/23 WBC [phone] 2600-15296 8200 Lymphocytes % 21-48 18-54 19 Lymphocytes 5349-7412 3694-3038 1558 CD3+ % 75-80 76-78 65 CD3 5889-4395 2306-6716 1013 CD3+CD4+ % (CD4 T cells) 34-61 26-62 38 CD3+CD4+ 564-3581 525-4012 592 CD3+CD8+ % (CD8 T cells) 16-38 14-44 27 CD3+CD8+ 314-939 822-4905 421 CD4:CD8 Ratio 0.97-3.71 0.6-4.4 1.41 CD19 [...] maturation subsets in adults of [facility]. Immunobiology, 219(7), 487-496. Matheus Randle, Matheus [...] Trisha Bray MD Allergy & Immunology Fellow FITTER MAINTENANCE documented in this encounter Plan of Treatment Upcoming Encounters Date Type Department Care Team (Late st Contact Info) Description 2025 3:00 PM PIPE FITTER MAINTENANCE Office Visit [facility] [address] [place] [address], [place] [address] Lee Mendez MD [address] [place] [address] DIV OF ALLERGY/[place] [address] documented as of this encounter Visit Diagnoses Not on filedocumented in this encounter Care Teams Costume Shop Coordinator Relationship Specialty Start Date End Date Angel Guerra MD [address] [place] [address] PCP - General 01/11/22 documented as of this encounter
--- OUTSIDE RECORDS SUMMARY | 2025-03-27 19:23 | XMS_ITS | Encounter Summary ---
Author Organization [facility] Address [address] [place] [address] Care Team Providers Care Platform Operations Director Name Role Phone Paulette Pedraza MD Primary Care Provider + [phone] Angel Guerra MD Primary Care Provider + [phone] Encounter Details Date Type Department Care Team (Late st Contact Info) Description 07/27/2021 Telephone [facility] [address] [place] [address] Lee Mendez MD [facility] OF ALLERGY/[place] [address] Social History Tobacco Use Types Packs/Day Years Used Date Smoking Tobacco: Every Day Cigarettes Smokeless Tobacco: Current Alcohol Use Standard Drinks/Week Comments No 0 (1 standard drink = 0.6 oz pur e alcohol) PHQ-2 Answer Date Recorded PHQ2 TOTAL SCORE 0 07/27/2021 Comments Unknown Sex and Gender Information Value Date Recorded Sex Assigned at Not on file Legal Sex Female 5:13 PM NEW VEHICLE SALES CONSULTANT Gender Identity Not on file Sexual Orientation Not on file documented as of this encounter Patient Instructions * Patient Instructions* Mervat Good - 07/27/2021 12:01 PM CDT Please call patient today for her telephone appt. At [phone]. Thank you documented in this encounter Plan of Treatment Upcoming Encounters Date Type Department Care Team (Late st Contact Info) Description 2025 3:00 PM NEW VEHICLE SALES CONSULTANT Office Visit [facility] [address] [place] [address], [place] [address] Lee Mendez MD [address] [place] [address] DIV OF ALLERGY/[place] [address] documented as of this encounter Visit Diagnoses Not on filedocumented in this encounter Care Teams Platform Operations Director Relationship Specialty Start Date End Date Paulette Pedraza MD PCP - General 12/26/16 01/10/22 Angel Guerra MD [address] [place] [address] PCP - General 01/11/22 documented as of this encounter
--- OUTSIDE RECORDS SUMMARY | 2025-03-27 19:23 | XMS_ITS | Encounter Summary ---
Author Organization [facility] Address [address] [facility] [place] [address] Care Team Providers Care Plastic Outfitter Name Role Phone Paulette Pedraza MD Primary Care Provider + [phone] Angel Guerra MD Primary Care Provider + [phone] Encounter Details Date Type Department Care Team (Late st Contact Info) Description 08/05/2021 Telephone [facility] [address] [place] [address] Lee Mendez MD [facility] OF [place]ERGY[place] [address] Social History Tobacco Use Types Packs/Day Years Used Date Smoking Tobacco: Every Day Cigarettes Smokeless Tobacco: Current Alcohol Use Standard Drinks/Week Comments No 0 (1 standard drink = 0.6 oz pur e alcohol) PHQ-2 Answer Date Recorded PHQ2 TOTAL SCORE 0 07/27/2021 Comments Unknown Sex and Gender Information Value Date Recorded Sex Assigned at Not on file Legal Sex Female 5:13 PM METALLURGICAL TECHNICIAN Gender Identity Not on file Sexual Orientation Not on file documented as of this encounter Patient Instructions * Patient Instructions* Jessica Armijo - 08/05/2021 11:44 AM CDT Pt is calling to get her Gamunex re certified by Dr Mendez documented in this encounter Plan of Treatment Upcoming Encounters Date Type Department Care Team (Late st Contact Info) Description 2025 3:00 PM METALLURGICAL TECHNICIAN Office Visit [facility] [address] [place] [address], [place] [address] Lee Mendez MD [address] [place] [address] [address] DIV [place]ERGY/[place] [address] documented as of this encounter Visit Diagnoses Not on filedocumented in this encounter Care Teams Plastic Outfitter Relationship Specialty Start Date End Date Paulette Pedraza MD PCP - General 12/26/16 01/10/22 Angel Guerra MD [address] [place] [address] PCP - General 01/11/22 documented as of this encounter
--- OUTSIDE RECORDS SUMMARY | 2025-03-27 19:23 | XMS_ITS | Encounter Summary ---
Author Organization [facility] Address [address] [facility] [place] [address] Care Team Providers Care Fourth Grade Teacher Name Role Phone Paulette Pedraza MD Primary Care Provider + [phone] Angel Guerra MD Primary Care Provider + [phone] Encounter Details Date Type Department Care Team (Late st Contact Info) Description 06/15/2020 Telephone [facility] [address] [place] [address] Lee Mendez MD [address] OF ALLERGY/[place] [address] Social History Tobacco Use Types Packs/Day Years Used Date Smoking Tobacco: Every Day Cigarettes Smokeless Tobacco: Current Alcohol Use Standard Drinks/Week Comments No 0 (1 standard drink = 0.6 oz pur e alcohol) Comments Unknown Sex and Gender Information Value Date Recorded Sex Assigned at Not on file Legal Sex Female 5:13 PM CITY SUPERVISOR Gender Identity Not on file Sexual Orientation [...] Please call. Thanks. Patiient Call Back number: [phone] documented in this encounter Plan of Treatment Upcoming Encounters Date Type Department Care Team (Late st Contact Info) Description 2025 3:00 PM CITY SUPERVISOR Office Visit [facility] [address] [place] [address], [place] [address] Lee Mendez MD [address] [place] [address] DIV OF ALLERGY/[place] [address] documented as of this encounter Visit Diagnoses Not on filedocumented in this encounter Care Teams Fourth Grade Teacher Relationship Specialty Start Date End Date Paulette Pedraza MD PCP - General 12/26/16 01/10/22 Angel Guerra MD [address] [place] [address] PCP - General 01/11/22 documented as of this encounter
--- OUTSIDE RECORDS SUMMARY | 2025-03-27 19:23 | XMS_ITS | Encounter Summary ---
Author Organization [facility] Address [address] [facility] [address] Care Team Providers Care Computer Network Support Specialist Name Role Phone Angel Guerra MD Primary Care Provider Reason for Visit * Reason Onset Date Comments Refill Request 09/26/2023 Encounter Details Date Type Department Care Team (Late st Contact Info) Description 09/26/2023 Telephone [facility] [address] [facility], [place] [address] Trisha Bray MD [address] [place] [address] Refill Request Social History Tobacco [...] on file Legal Sex Female 5:13 PM NAIL MILL WORKER Gender Identity Not on file Sexual Orientation [...] hopeless Not at all 09/26/2023 2:48 PM NAIL MILL WORKER Nelida Carrasco RN Patient Health Questionnaire -2 Score 0 09/26/2023 2:48 PM NAIL MILL WORKER Nelida Carrasco RN documented as of this encounter Miscellaneous Notes * Telephone Encounter - Trisha Bray MD - 09/26/2023 4:40 PM CST Spoke with [facility]. Gave verbal order to renew gamunex C 50g [id number], and add 500cc NS bolus Trisha Bray MD Allergy & Immunology Fellow MILL WORKER documented in this encounter Plan of Treatment Upcoming Encounters Date Type Department Care Team (Late st Contact Info) Description 2025 3:00 PM NAIL MILL WORKER Office Visit [facility] [address] [place] [address], [place] [address] Lee Mendez MD [address] [place] [address] [address] DIV [place]ERGY/[place] [address] documented as of this encounter Visit Diagnoses Not on filedocumented in this encounter Care Teams Computer Network Support Specialist Relationship Specialty Start Date End Date Angel Guerra MD [address] [place] [address] PCP - General 01/11/22 documented as of this encounter
--- OUTSIDE RECORDS SUMMARY | 2025-03-27 19:23 | XMS_ITS | Encounter Summary ---
Author Organization [facility] Address [address] [place] [address] Care Team Providers Care Mill Manager Name Role Phone Paulette Pedraza MD Primary Care Provider + [phone] Angel Guerra MD Primary Care Provider + [phone] Encounter Details Date Type Department Care Team (Late st Contact Info) Description 08/09/2021 Telephone [facility] [address] [place] [address] Lee Mendez MD [facility] OF ALLERGY/[place] [address] Social History Tobacco Use Types Packs/Day Years Used Date Smoking Tobacco: Every Day Cigarettes Smokeless Tobacco: Current Alcohol Use Standard Drinks/Week Comments No 0 (1 standard drink = 0.6 oz pur e alcohol) PHQ-2 Answer Date Recorded PHQ2 TOTAL SCORE 0 07/27/2021 Comments Unknown Sex and Gender Information Value Date Recorded Sex Assigned at Not on file Legal Sex Female 5:13 PM APPLICATION COUNSELOR Gender Identity Not on file Sexual Orientation Not on file documented as of this encounter Patient Instructions * Patient Instructions* Lore Amezquita - 08/09/2021 1:14 PM CDT Patient called and would like to talk to Dr. Mendez's nurse in regards to her medication needing to be certified. Contact number is [phone]. documented in this encounter Plan of Treatment Upcoming Encounters Date Type Department Care Team (Late st Contact Info) Description 2025 3:00 PM APPLICATION COUNSELOR Office Visit [facility] [address] [place] [address], [place] [address] Lee Mendez MD [address] [place] [address] DIV OF [place]ERGY/[place] [address] documented as of this encounter Visit Diagnoses Not on filedocumented in this encounter Care Teams Mill Manager Relationship Specialty Start Date End Date Paulette Pedraza MD PCP - General 12/26/16 01/10/22 Angel Guerra MD [address] [facility] [address] [place] [address] PCP - General 01/11/22 documented as of this encounter
--- OUTSIDE RECORDS SUMMARY | 2025-03-27 19:23 | XMS_ITS | Data Portability ---
Author Organization [place] - [facility] OFFICE Address [address] [place] [address] Care Team Providers Care Franchise Consultant Name Role Phone BROOKLYN FIGUEROA Primary Care Provider Assessment No assessment recorded. Plan of Treatment Reminders Order Date Submit Date Provider Last Modified By Organization Details Last Modified Time Details Appointments None recorded. Lab None recorded. Referral None recorded. Procedures None recorded. Surgeries None recorded. Imaging electrocar diogram 2017 018 [email or web address] Not available 9 17:12:22 Medication Orders furosemide 40 mg tablet 2017 018 [email or web address] [facility][id number], [address], [place], [id number], 0 12:38:49 potassium chloride ER 10 mEq tablet,ext ended release 2017 018 INTERFACE [facility] #54778, [address], [place], [id number], 8 17:58:14 nitroglyce rin 0.4 mg sublingual tablet 2017 018 Not available 8 10:50:12 metoprolol tartrate 50 mg tablet 2017 018 INTERFACE [facility] #[id number], [address], [place], [id number], 8 17:57:45 atorvastat in 40 mg tablet 2017 018 INTERFACE [facility] #[id number], [address] [facility], [place], [place], [id number], 17:55:31 fenofibrat e 160 mg tablet 2017 INTERFACE [facility] #34558, [address] [facility], [place], [place], [id number], 17:57:46 Patient TargetsNo targets recorded. Patient Instructions Encounter Date Encounter Id Patient Instructions Last Modified By Organization Details Last Modified Time 06/11/2018 [id number] sleep apnea: car e instructions [email or web address] Not available 06/11/2018 17:55:27 learning about low-fat eating [email or web address] Not available 06/11/2018 17:55:27 Scribed by Ronel Su ROPER OPERATOR-C lsenci Not available 06/11/2018 17:59:45 05/04/2020 [id number] sleep apnea: car e instructions [email or web address] Not available 05/04/2020 13:28:27 learning about low-fat eating [email or web address] Not available 05/04/2020 13:28:27 05/04/2020 Advise d to go to the ER from the office. Pt. verbalized understanding and states she will go to [facility] from the office. Pt took her own transportation to the ER. Weight loss, Exercise advised Education on smoking. Reports a decrease in use to 4-5 per day from 1ppd. Low cholesterol diet advised Low sodium diet advised. [email or web address] Not available 05/04/2020 13:26:21 Scribed by Nicci Bernard, MSN, YOUTH CORRECTIONS OFFICER, ROPER OPERATOR-C [email or web address] Not available 05/04/2020 12:48:14 04/04/2021 [id number] sleep apnea: car e instructions [email or web address] Not available 04/04/2021 21:37:57 learning about low-fat eating [email or web address] Not available 04/04/2021 21:37:57 Exercise advised Low cholesterol diet advised Low sodium diet advised [email or web address] Not available 04/04/2021 21:37:07 Scribed by Bhavik Galloway ROPER OPERATOR-BC [email or web address] Not available 04/04/2021 21:37:20 10/18/2021 [id number] sleep apnea: car e instructions [email or web address] Not available 10/18/2021 16:10:56 learning about low-fat eating [email or web address] Not available 10/18/2021 16:10:56 Exercise advised Low cholesterol diet advised Low sodium diet advised. [email or web address] Not available 10/18/2021 16:11:04 12/21/2022 [id number] Exercise advised Low cholesterol diet advised Low [...] Address Organization Details Recorded Time Hyperlipid emia 48805060 Active 2016 [place] [facility] 4 06:55:10 Edema of lower extremity 169038401 Active 2016 [place] [facility] 7 15:09:10 Palpitatio ns 98167246 Active 2015 [place] [facility] 6 01:56:30 Benign hypertensi on 06846883 Active 2015 [place] - [facility] 4 06:54:58 Disorder of coronary artery 658593339 Active 2015 [place] [facility] 6 01:57:10 Diabetes mellitus 56303202 Active 2015 Insulin dependent [place] [facility] 4 06:55:06 Moderate chronic obstructiv e pulmonary disease 663095866 Active 2015 [place] [facility] 6 01:58:18 Asthma 976335928 Active 2015 [place] [facility] 4 06:55:01 Bronchitis 83046465 Active 2015 [place] [facility] 6 01:58:37 Pneumonia 399648647 Active 2015 [place] [facility] 6 01:58:49 Obstructiv e sleep apnea syndrome 35884177 Active 2015 [place] [facility] 4 06:55:17 Hypothyroi dism 92139081 Active 2015 [place] [facility] 4 06:55:12 Cerebrovas cular accident 427110675 Active 2015 [place] [facility] 6 01:59:26 History of depression 537983766 Active 2015 [place] [facility] 6 01:59:37 Gastroesop hageal reflux disease 804640907 Active 2015 [place] [facility] 6 01:59:48 Degenerati on of interverte bral disc 66152382 Active 2015 [place] [facility] 6 02:00:46 Anxiety 06260197 Active 2015 [place] [facility] 6 02:00:57 Problem Notes None recorded. Medical Equipment None Reported. Allergies Allergen ID Allergen Name Allergen Category Reaction Reaction Severity Criticality Documentation Date Start Date Code Code System Note Provider Name and Address Organization Details Recorded Time 851 Substance with sulfonami de structure and antibacte rial mechanism of action (substanc e) medicatio n Not available Not available Not available 02/10/2016 41353 8003 SNOMED Statu s- Activ e Type- Drug Intol eranc e [place] [facility], [place] - [facility] 6 02:12:55 [...] 09/13 completed pt is no longer taking sa 10/18/21 [...] prn active pt is no longer taking sa [...] SA Not Available Not Available Not Available cefuroxime [...] SA Not Available Not Available Not Available fluoxetine [...] completed pt is no longer taking 12/21/22 SA Not Available Not Available Not Available ceftriaxon [...] completed Not Available Not Available Not Available Lantus Solostar U-100 Insulin 100 unit/mL (3 mL) subcutaneo [...] Available TRUEplus Pen Needle 32 gauge x 5/32 USE TO INJECT VICTOZA EVERY DAY active [...] Not Available No t Available Afluria Qd (36 mos up)(PF)60 mcg (15 mcg x4)/0.5 mL IM syringe 11/17 completed Not Available Not Available Not Available Breztri Aerosphere 160 mcg-9mcg-4 .8mcg/actu ation HFA aerosol inhaler INHALE 2 PUFFS BY MOUTH IN THE MORNING AND IN THE EVENING. RINSE MOUTH WITH WATER. DO NOT SWALLOW WATER active Not Available Not Available No t Available Vitals Date Recorded Body weight Oxygen saturation Oxygen saturation in Arterial blood by Pulse oximetry Heart rate Systolic blood pressure Diastolic blood pressure Provider Name and Address Organization Details Last Updated DateTime 2 76293.5 1 g 95 % 95 % 78 /min 142 mm[Hg] 80 mm[facility]Hg[facility] [place] 2 15:53:53 Date Recorded Body height Body mass index (BMI) Body weight Body weight Oxygen saturation Oxygen saturation in Arterial blood by Pulse oximetry Heart rate Systolic blood pressure Diastolic blood pressure Provider Name and Address Organization Details Last Updated DateTime 3 160.02 cm 27.9 kg/m2 37746.5 2 g 26740.8 6 g 90 % 90 % 62 /min 122 mm[Hg] 62 mm[Hg] ONEIL [facility] [place] 3 17:29:12 Date Recorded Body weight Heart rate Respiratory rate Oxygen saturation Oxygen saturation in Arterial blood by Pulse oximetry Systolic blood pressure Diastolic blood pressure Provider Name and Address Organization Details Last Updated DateTime 1 52488.5 9 g 79 /min 16 /min 97 % 97 % 104 mm[Hg] 62 mm[Hg] Christal Galloway [facility] [place] 1 16:08:54 Date Recorded Body weight Heart rate Oxygen saturation Oxygen saturation in Arterial blood by Pulse oximetry Systolic blood pressure Diastolic blood pressure Provider Name and Address Organization Details Last Updated DateTime 0 15305.1 4 g 87 /min 88 % 88 % 128 mm[Hg] 75 mm[Hg] Fuentes Asia [facility] 0 12:31:53 Date Recorded Body height Body mass index (BMI) Body weight Provider Name and Address Organization Details Last Updated DateTime 06/11/2018 160.02 cm 32.1 kg/m2 43642.22 g Mariluz Purcell [facility] 06/11/2018 17:26:23 Social History None recorded. Functional Status None [...] Code Diagnosis Note 1180 Fuentes Bell MD [facility] [place] [address] 02/18/2016 12:00:26 02/18/2016 13:17:22 Hyperlipidemia 42162102 E78.5 Needs to keep LDL less than 70, and HDL more than 40 Disorder o f coronary artery 738215901 I77.9 Diabetes mellitus 715840 09 E11.9 Obstructiv e sleep apnea syndrome 38740054 G47.33 Atypical chest pain 1025 32496 R07.89 Treadmill Myoview Stress test, has high [place] Risk score. Has Known CAD, or CAD risk equivalent . To look for any ischemia. Carotid bruit 179044913 R09.89 8895 Fuentes Bell MD [facility] [place] [address] 11/21/2016 09:40:06 11/22/2016 10:41:10 Benign hypertension 95917047 I10 Now well controlled Disorder o f coronary artery 853669919 I77.9 stable no new angina Palpitations 53814853 R0 0.2 Atypical chest pain 1025 90913 R07.89 Hyperlipidemia 35675201 E78.5 Needs to keep LDL less than 70, and HDL more than 40 Diabetes mellitus 798000 09 E11.9 with fair control Obstructiv e sleep apnea syndrome 34492503 G47.33 Carotid bruit 523750798 R09.89 Edema of l ower extremity 444864812 R60.0 Dyslipidemia 548421222 E 78.5 14952 Fuentes Bell MD [facility] [place] [address] 02/06/2017 14:39:27 02/07/2017 12:40:08 Benign hypertension 77695685 I10 Now well controlled Disorder o f coronary artery 957915159 I77.9 stable angina Dobutamine Myoview stress test, pt can not walk. Has known coronary artery disease, with atypical symptoms now Palpitations 75287678 R0 0.2 Atypical chest pain 1025 36920 R07.89 Hyperlipidemia 63209598 E78.5 Needs to keep LDL less than 70, and HDL more than 40 Diabetes mellitus 589826 09 E11.9 with fair control Obstructiv e sleep apnea syndrome 57081370 G47.33 Carotid bruit 975805475 R09.89 Edema of l ower extremity 466770812 R60.0 Dyslipidemia 381529617 E 78.5 Needs to keep LDL less than 70, and HDL more than 40Will [place] [address] Fuentes Bell MD [place] [place] [address] 05/21/2018 15:57:23 05/21/2018 17:01:21 Benign hypertension 11551217 I10 Now well controlled Disorder o f coronary artery 632620609 I77.9 stable angina The patient will be scheduled for left heart catheteriz ation, with coronary angiogram, and possible PTCA/Stent . The procedure was discussed with the patient, and risks, benefits, and alternativ e options were explained. The patient was given informatio n about heart catheteriz ation and interventi onal procedures . The patient agrees to proceed. Palpitations 09318214 R0 0.2 Atypical chest pain 1025 96456 R07.89 Hyperlipidemia 71805281 E78.5 Needs to keep LDL less than 70, and HDL more than 40 Diabetes mellitus 635421 09 E11.9 with fair control Obstructiv e sleep apnea syndrome 66618626 G47.33 Carotid bruit 589176256 R09.89 Edema of l ower extremity 141874428 R60.0 On Lasix Dyslipidemia 429581197 E 78.5 Needs to keep LDL less than 70, and HDL more than 40Will [place] [address] Fuentes Bell MD [facility] [address] [place] [address] 06/11/2018 16:37:18 10/21/2018 17:12:22 Benign hypertension 23060415 I10 Now well controlled Disorder o f coronary artery 624386600 I77.9 stable angina Had Cardiac cath on 05/27/18 that mild to moderate coronary artery disease. Maximal medical treatment. Atypical chest pain 1025 08404 R07.89 Occasional , but feels that it is related to asthma. Hyperlipidemia 38398661 E78.5 Needs to keep LDL less than 70, and HDL more than 40. 06/11/18 Discontinu ed Simvastati n 20 mg and started Atorvastat in 40 mg.Continu e Fenofibrat e. Diabetes mellitus 300272 09 E11.9 with fair control Obstructiv e sleep apnea syndrome 93058413 G47.33 Wears CPAP machine. Edema of l ower extremity 276077757 R60.0 On Lasix Benign ess ential hypertension 4512526 I10 Well controlled . [address] Fuentes Bell MD [facility] [address] [place] [address] 05/04/2020 12:06:21 05/04/2020 13:28:36 Disorder of coronary artery 512076191 I77.9 05/04/2020 stable angina Had Cardiac cath on 05/27/18 that mild to moderate coronary artery disease. Maximal medical treatment. Atypical chest pain 1025 61130 R07.89 05/04/2020S OB, Wheezing, coughing. Advised to go to ER.Occasio nal, but feels that it is related to asthma. Hyperlipidemia 94785665 E78.5 05/04/2020L ast LDL on 12/05/2019 71, Continue Atorvastat inTri 192Continu e Fenofibrat e.Needs to keep LDL less than 70, and HDL more than 40. 06/11/18 Discontinu ed Simvastati n 20 mg and started Atorvastat in 40 mg.Continu e Fenofibrat e. Diabetes mellitus 726964 09 E11.9 05/04/2020L ast A1C 8.9 manage per PCP Obstructiv e sleep apnea syndrome 05448376 G47.33 05/04/2020W ears CPAP machine. Edema of l ower extremity 964469407 R60.0 05/04/2020E maria de jesus noted to the lower extremitie s. Is not taking her lasix Benign ess ential hypertension 1434664 I10 05/04/2020W ell controlled . 40766 Fuentes Bell MD [place] [facility] [address] [place] [address] 04/04/2021 16:02:07 04/04/2021 16:58:51 Atypical chest pain 188542541 R07.89 Dobutamine Stress test, has high [place] Risk score. Has Known CAD, or CAD risk equivalent . To look for any ischemia. Hyperlipidemia 40031427 E78.5 Needs to keep LDL less than 70, and HDL more than 40. 020 LDL 42Continue Lipitor 40 mg Diabetes mellitus 222108 E11.9 Treatment and evaluation by primary care doctor Discussed importance of adequate glycemic control to minimize cardiovasc ular disease progressio n, A1C goal of < 7% for type 2 DM. Obstructiv e sleep apnea syndrome 89737255 G47.33 Compliant with nightly CPAP use Edema of l ower extremity 446892239 R60.0 Stable on Lasix Benign ess ential hypertension 8311074 I10 Well controlled on current regimen Dizziness 721620912 R42 Obtain echo to evaluate for structural [place] [address] Fuentes Bell MD [facility] [address] [place] [address] 10/18/2021 15:28:55 10/18/2021 16:18:34 Atypical chest pain 835964073 R07.89 Lexiscan Stress test, has high [place] Risk score. Unable to walk a treadmill due to exercise induced chest pain and increased fall risk due to dizziness. Has Known CAD, or CAD risk equivalent . To look for any ischemia. Hyperlipidemia 06826976 E78.5 Needs to keep LDL less than 70, and HDL more than 40.2 020 LDL 42Continue Lipitor 40 mg Diabetes mellitus 335703 09 E11.9 Treatment and evaluation by primary care doctor Discussed importance of adequate glycemic control to minimize cardiovasc ular disease progressio n, A1C goal of < 7% for type 2 DM. Obstructiv e sleep apnea syndrome 38394690 G47.33 Compliant with nightly CPAP use Edema of l ower extremity 991414334 R60.0 Stable on LasixLeg elevationO btain echo to evaluate for structural /functiona l disease. Benign ess ential hypertension 1763342 I10 Well controlled on current regimen Dizziness 844295597 R42 Obtain echo to evaluate for structural /[place] [address] Fuentes Bell MD [facility] [address] [place] [address] 12/21/2022 16:52:03 12/21/2022 17:58:03 Atypical chest pain 414036841 R07.89 Hyperlipidemia 14873868 E78.5 Needs to keep LDL less than 70, and HDL more than 40. 020 LDL 42Continue Lipitor 40 mg Diabetes mellitus 785807 09 E11.9 Treatment and evaluation by primary care doctor Discussed importance of adequate glycemic control to minimize cardiovasc ular disease progressio n, A1C goal of < 7% for type 2 DM. Obstructiv e sleep apnea syndrome 70587151 G47.33 Compliant with nightly CPAP use Edema of l ower extremity 751390560 R60.0 Stable on LasixLeg elevationO btain echo to evaluate for structural /functiona l disease. Benign ess ential hypertension 8084366 I10 Well controlled on current regimen Dizziness 082588642 R42 24 Hour Holter, to evaluate arrhythmia Obtain echo to evaluate for structural /functiona l disease. Health Concerns Section Related Observation LastModified by Organization Detai ls LastModified Time None Recorded Concern Status LastModified by Organization Details LastModified Time None Recorded Advance Directives Directive None Recorded Payers Insurance Date Sequence Insurance Name Policy Number Policy Truong Covered Member ID Truong Member ID Guarantor Name 11/13/2024 1 [facility] - DOS ON OR AFTER 21 (MEDICAID REPLACEMENT - HMO) Alma Anderson [id number] Alma Anderson 06/07/2021 1 [facility] - DOS PRIOR TO 2021 (MEDICAID REPLACEMENT - HMO) Alma Anderson [id number] Alma Anderson Notes Date Note Type Note [...] Left ventricular systolic function is normal. EF=>55%. Fuentse Bell MD [address] [place], [address], [facility] 06/11/2018 18:28:12 05/04/2020 text/html [...] function is normal. EF=>55%. Fuentes Bell MD [address] [place], [address], [place] - [facility] 05/04/2020 13:28:33 04/04/2021 text/html [...] : Right atrial enlargement, probably old anterior AL EKG 05/21/18 : Left posterior hemiblock. Possibly [...] ischemia nuclear portion is pending. [place], [place] - [facility] 04/11/2021 14:34:35 10/18/2021 text/html 10/18/20CC : Car diac follow up, chest [id number] white woman with a PMH of CAD, [...] : Right atrial enlargement, probably old anterior [place] EKG 05/21/18 : Left posterior hemiblock. Possibly [...] [place] - [facility] 10/29/2021 19:15:52 12/21/2022 text/html 12/21/22CC : Car diac follow up, [id number] white woman with a PMH of CAD, [...] : Right atrial enlargement, probably old anterior [place] EKG 05/21/18 : Left posterior hemiblock. Possibly [...] nuclear portion is pending. Fuentes Bell MD [address] [place], [address], [facility] - [facility] 12/21/2022 17:53:36 OBGyn Episode No OBEpisode recorded.
--- OUTSIDE RECORDS SUMMARY | 2025-03-27 19:23 | XMS_ITS | Encounter Summary ---
Author Organization [facility] Address [address] [place] [address] Care Team Providers Care Scrap Sorter Name Role Phone Angel Guerra MD Primary Care Provider Reason for Visit * Reason Onset Date Comments Medication Problem 10/04/2023 Encounter Details Date Type Department Care Team (Late st Contact Info) Description 10/04/2023 Telephone [facility] - All[facility] [address] [facility], [facility] [place] [address] Trisha Bray MD [address] [place] [address] Medication Problem Social History Tobacco Use Types [...] on file Legal Sex Female 5:13 PM THERAPY ASSISTANT Gender Identity Not on file Sexual Orientation Not on file documented as of this encounter Miscellaneous Notes * Telephone Encounter - Trisha Bray MD - 10/04/2023 2:44 PM CST Wrote medical appeal letter to approve gamunex for hypogammaglobulinemia Trisha Bray MD Allergy & Immunology Fellow APY ASSISTANT documented in this encounter Plan of Treatment Upcoming Encounters Date Type Department Care Team (Late st Contact Info) Description 2025 3:00 PM THERAPY ASSISTANT Office Visit [facility] - Allergy [address] [place] [address], [place] [address] Lee Mendez MD [address] [place] [address] DIV OF ALLERGY/[place] [address] documented as of this encounter Visit Diagnoses Not on filedocumented in this encounter Care Teams Scrap Sorter Relationship Specialty Start Date End Date Angel Guerra MD [address] [place] [address] PCP - General 01/11/22 documented as of this encounter
--- OUTSIDE RECORDS SUMMARY | 2025-03-27 19:23 | XMS_ITS | Encounter Summary ---
Author Organization [facility] Address [address] [place] [address] Care Team Providers Care Channel Machine Operator Name Role Phone Paulette Pedraza MD Primary Care Provider + [phone] Angel Guerra MD Primary Care Provider + [phone] Reason for Visit * Reason Onset Date Comments Results 01/15/2019 Encounter Details Date Type Department Care Team (Late st Contact Info) Description 01/15/2019 Telephone [facility] [address] [place] [address] Js Dubon DO [address] [place] [address] Results Social History Tobacco Use Types Packs/Day Years Used Date Smoking Tobacco: Every Day Cigarettes Smokeless Tobacco: Current Alcohol Use Standard Drinks/Week Comments No 0 (1 standard drink = 0.6 oz pur e alcohol) Comments Unknown Sex and Gender Information Value Date Recorded Sex Assigned at Not on file Legal Sex Female 5:13 PM BLACKJACK DEALER Gender Identity Not on file Sexual Orientation Not on file documented as of this encounter Miscellaneous Notes * Telephone Encounter - Js Dubon DO - 01/15/2019 5:07 PM CDT Received lab results from [facility]. 01/06/2019 IgG 642, Creatine 0.62, eGFR [...] st Contact Info) Description 2025 3:00 PM BLACKJACK DEALER Office Visit [facility] - Allergy [address] [place] [address], [place] [address] Lee Mendez MD [address] [place] [address] OF ALLERGY/[place] [address] documented as of this encounter Visit Diagnoses Diagnosis Hypogammaglobulinemia (HCC)- Primary Hypogammaglobulinaemia, unspecified documented in this encounter Care Teams Channel Machine Operator Relationship Specialty Start Date End Date Paulette Pedraza MD PCP - General 12/26/16 01/10/22 Angel Guerra MD [address] [place] [address] PCP - General 01/11/22 documented as of this encounter
[2025-03-27] MEDS: methylPREDNISolone SOD SUCC 40 MG VIAL IV PUSH (19:30)
[2025-03-27 19:31] LABS: Alanine Aminotransferase 15 U/L (6-35); Albumin Level 3.8 g/dL (3.5-5.1); Alkaline Phosphatase 62 U/L (38-126); Anion Gap 5 mmol/L (4-12); Aspartate Amino Transferase 28 U/L (14-36); Bilirubin,Total 0.2 mg/dL (0.2-1.3); Blood Urea Nitrogen 10 mg/dL (7-17); Calcium 9.1 mg/dL (8.4-10.2); Carbon Dioxide 33 mmol/L (22-30); Chloride 95 mmol/L (98-107); Estimated CRCL calculation 86 ml/min; Estimated Glomerular Filt Rate > 60; Glucose 128 mg/dL (65-110); Magnesium 1.3 mg/dL (1.6-2.3); Potassium 4.3 mmol/L (3.4-5.0); Sodium 133 mmol/L (137-145); Total Protein 6.9 g/dL (6.3-8.2)
[2025-03-27] MEDS: oxyCODONE/ACETAMINOPHEN (*CRX) 5-325 MG TABLET 1 TABLET PO (19:32)
[2025-03-27] MEDS: ALBUTEROL SULFATE NEB 2.5 MG/3 ML INH 15 MG INHALATION (19:39)
[2025-03-27] MEDS: IPRATROPIUM BR 0.02% INH SOLN 0.5 MG/2.5 ML VIAL 1 MG INHALATION (19:39)
[2025-03-27 19:40] LABS: NT Pro B Type Natriuretic Pept 171 pg/mL (19.9-100)
[2025-03-27 19:43] LABS: Troponin I < 0.012 ng/mL (0.000-0.034)
--- NOTE | 2025-03-27 19:56 | ED_ITS ---
HPI - Chest Pain General Chief Complaint: Chest Pain Stated Complaint: Difficulty breathing/cp Time Seen by Provider: 03/27/25 19:03 History of Present Illness HPI narrative: Patient with history of COPD/asthma has been having increasing shortness of breath and some chest tightness for last 4 days, despite trying to take her asthma medications at home. She has also noticed swelling to both of her feet, this has happened in the past also. Related Data Home Medications ?Medication ?Instructions ?Recorded ?Confirmed ?Last Taken ?Type atorvastatin 40 mg tablet 40 mg PO HS 09/18/19 03/06/25 12/31/24 History famotidine 40 mg tablet 40 mg PO DAILY 09/18/19 03/06/25 12/31/24 History fenofibrate 160 mg tablet 160 mg PO HS 09/18/19 03/06/25 12/31/24 History levothyroxine 50 mcg tablet 50 mcg PO DAILY 09/18/19 03/06/25 12/31/24 History metoprolol tartrate 50 mg tablet 25 mg PO BID 09/18/19 03/06/25 12/31/24 History aspirin 81 mg tablet,delayed 81 mg PO HS 11/25/19 03/06/25 12/31/24 History release estradiol 1 mg tablet 0.5 mg PO HS 05/04/20 03/06/25 12/31/24 History potassium chloride 10 mEq 10 meq PO DAILY 05/04/20 03/06/25 12/31/24 History tablet,extended release ropinirole 0.5 mg tablet 0.5 mg PO TID 05/04/20 03/06/25 12/31/24 History immune glob G 40 gram/400 500 ml IV MONTHLY 06/26/22 03/06/25 12/05/24 History mL(10%)-gly-IgA ave 46 mcg/mL injection soln (Gamunex-C) fluoxetine 20 mg tablet 20 mg PO HS 01/27/23 03/06/25 12/31/24 History gabapentin 400 mg capsule 400 mg PO BID 01/27/23 03/06/25 12/31/24 History (Neurontin) liraglutide 0.6 mg/0.1 mL (18 mg/3 1.8 mg subcut DAILY 08/23/23 03/06/25 12/31/24 History mL) subcutaneous pen injector (Victoza 2-Sean) trazodone 100 mg tablet 100 mg PO HS 10/11/23 03/06/25 12/31/24 History ipratropium 0.5 mg-albuterol 3 mg 3 ml inhalation Q6H PRN shortness 11/07/24 03/06/25 12/31/24 History (2.5 mg base)/3 mL nebulization of breath or wheezing soln ensifentrine 3 mg/2.5 mL 2.5 ml inhalation QAM AND QPM 03/06/25 03/06/25 Unknown History suspension for nebulization (Ohtuvayre) Allergies Allergy/AdvReac Type Severity Reaction Status Date / Time Sulfa (Sulfonamide Allergy Unknown Nausea and Verified 03/06/25 11:24 Antibiotics) Vomiting Review of Systems 2 Review of Systems: All systems reviewed & are unremarkable except as noted in HPI and below PMFSH Past Medical History Medical History Stroke ~14 mon ago Hyperlipidemia Hypertension Thyroid disease Anxiety Diabetes mellitus Asthma RLS (restless legs syndrome) CVID (common variable immunodeficiency) Allergic rhinitis Asthma TATUM (obstructive sleep apnea) Tobacco abuse Surgical History Surgical History History of incisional hernia repair Laparoscopic 5 cm reducible recurrent incisional hernia repair with mesh, da Kiko assisted on 08/29/23 [facility] H/O hemicolectomy 01/08/2022 Family History Family History Sibling Cancer Mother Cancer of kidney Other Cerebrovascular accident Diabetes mellitus Heart disease Hypertension Social History Social History Smoking packs per day: 0.5 Smoking cigarettes per day: 10.0 Years smoked: 40 Smoking pack-years: 20.00 Smoking status: Current every day smoker Second hand tobacco smoke exposure: No Additional smoking assessment comments: Smoking 0.5ppd now. Alcohol intake: never Drinks per week: 0 Substance use: current Substance use type: marijuana Other substance usage details: Gummies Last use: 12/04/24 Do You Feel Safe in your Home?: Yes Lack of Transportation: No Lack of Food: Never True Current Housing: I Have Housing Concerned About Future Housing: No Difficulty Paying Gas/Electric Bills: No Difficulty Paying for Meds: No Currently Unemployed: No Education: Bachelor's Degree Difficulty w/ Childcare or Family Care: No Living arrangements: alone Gender identity (if verbalized by the patient): Female Spiritual care concerns: No Exam 2 Narrative: EXAMINATION OF ORGAN SYSTEMS/BODY AREAS: Constitutional: Vital signs per nursing GENERAL:[No acute distress, non-toxic appearing.] HEAD: Normal with no signs of head trauma. EYES: EOMI, conjunctiva normal ENT: Hearing grossly intact LUNGS: Extensive wheezing bilateral lungs HEART: [Regular rate and rhythm] ABD: [Soft], [nontender to palpation] EXT: Normal range of motion, bilateral lower feet swelling, no tenderness either leg, negative Homans SKIN: [No rashes or lesions.] NEURO: [Alert and oriented x 3. No gross focal sensory or strength deficits.] PSYCH: Normal affect Course Vital Signs Vital signs: Vital Signs Pulse Rate 80 03/27/25 19:17 Respiratory Rate 21 H 03/27/25 19:17 Blood Pressure 140/74 03/27/25 19:17 Pulse Oximetry 92 03/27/25 19:17 Oxygen Delivery Room Air 03/27/25 19:17 Pulse Rate 95 03/27/25 23:11 Respiratory Rate 16 03/27/25 23:11 Blood Pressure 157/79 H 03/27/25 23:11 Pulse Oximetry 98 03/27/25 23:11 Oxygen Delivery Nasal Cannula 03/27/25 22:01 Oxygen Flow Rate 2 03/27/25 22:01 MDM - Chest Pain MDM Narrative Medical decision making narrative: ED COURSE AND MEDICAL DECISION MAKIN-year-old female with acute dyspnea and wheezing likely due to acute asthma/COPD exacerbation based on history and exam. Patient is hemodynamically stable. Nebulizer treatments are started and steroids given orally. Patient monitored in the ED for a couple of hours and on reevaluation is still wheezing extensively. Additional breathing treatment started. Magnesium ordered. EKG on my independent interpretation at 7:06 p.m. shows normal sinus rate 78, AR 207, QRS 87, QTC 400, no obvious ST elevations depressions or signs of acute ischemia or arrhythmia. Troponins were negative. Chest x-ray on my independent interpretation without any obvious consolidations or pneumothorax. On re-evaluation, she is still wheezing. She has been admitted for this in the past. Would like to be admitted, her oxygen did drop to 86% so she started on oxygen and discussed with hospitalist for admission. Smoking cessation counseled. Lab Data 03/27/25 19:14 03/27/25 19:14 Labs: Lab Results 03/27/25 Range/Units 19:14 WBC 6.2 (4.5-10.0) K/mm3 RBC 4.66 (4.2-5.4) M/mm3 Hgb 13.0 (12.0-15.0) g/dL Hct 41.2 (37.0-47.0) % MCV 88.4 (80-100) fl MCH 27.9 (26-34) pg MCHC 31.6 L (32-36) g/dl RDW 14.3 (11.5-14.5) % Plt Count 146 L (150-375) k/mm3 MPV 9.3 (7.4-10.4) fl Immature Gran % (Auto) 0.2 (0-0.5) % Neut % (Auto) 75.9 H (45.5-73.1) % Lymph % (Auto) 16.4 L (18.3-44.2) % Logan % (Auto) 6.2 (2.6-8.5) % Eos % (Auto) 1.0 (0-4.4) % Baso % (Auto) 0.3 (0.2-1.2) % Lymph # (Auto) 1.01 (0.9-3.2) K/mm3 Logan # (Auto) 0.4 (0.1-0.6) K/mm3 Eos # (Auto) 0.1 (0-0.3) K/mm3 Baso # (Auto) 0.0 (0.0-0.1) K/mm3 Abs Immat Gran (auto) 0.01 (0.00-0.031) K/mm3 Absolute Neuts (auto) 4.7 (1.3-6.7) K/mm3 Absolute Nucleated RBC 0.000 (0.0-0.012) K/mm3 Nucleated RBC % 0.0 (0.0-0.2) % Sodium 133 L (137-145) mmol/L Potassium 4.3 (3.4-5.0) mmol/L Chloride 95 L (98-107) mmol/L Carbon Dioxide 33 H (22-30) mmol/L Anion Gap 5 (4-12) mmol/L BUN 10 (7-17) mg/dL Creatinine 0.56 L (0.7-1.0) mg/dL Estim Creat Clear Calc 86 ml/min Estimated GFR > 60 (59 - ) Glucose 128 H (65-110) mg/dL Calcium 9.1 (8.4-10.2) mg/dL Magnesium 1.3 L (1.6-2.3) mg/dL Total Bilirubin 0.2 (0.2-1.3) mg/dL AST 28 (14-36) U/L ALT 15 (6-35) U/L Alkaline Phosphatase 62 (38-126) U/L Troponin I < 0.012 (0.000-0.034) ng/mL NT-Pro-B Natriuret Pep 171 H (19.9-100) pg/mL Total Protein 6.9 (6.3-8.2) g/dL Albumin 3.8 (3.5-5.1) g/dL Discharge Plan Discharge Clinical Impression: COPD exacerbation Patient Disposition: Still a Patient Condition: Stable
[2025-03-27] MEDS: MAGNESIUM SULF 2 GM/WATER 50ML 2 GM/50 ML BAG IVPB (20:12)
[2025-03-27] MEDS: ALBUTEROL SULFATE NEB 2.5 MG/3 ML INH 5 MG INHALATION (22:42)
[2025-03-28] VITALS (12 sets, daily range): BP systolic 126–138; BP diastolic 50–73; PULSE 63–102; RESP 16–20; TEMP 36.2–36.4; O2SAT 93–98; BMI 28.5
--- NOTE | 2025-03-28 | ECHO_ITS ---
Patient Info Name: Alma Anderson Age: 64 years : 1960 Gender: Female Ht: 62 in Wt: 156 lbs BSA: 1.78 m2 HR: 70 bpm BP: 138 / 61 mmHg Heart Rhythm: Sinus Rhythm Technical Quality: Good Exam Date: 03/28/2025 1:36 PM Patient Status: I Admit Date: 03/28/2025 Exam Type: CA echo doppler color flow Complete two-dimensional, color flow and Doppler transthoracic echocardiogram is performed. Staff Referring Physician: Gael Song Seam Steamer: Kelli Ta Attending Provider: Gael Song Summary 1. Complete two-dimensional, color flow and Doppler transthoracic echocardiogram is performed. 2. Left ventricular chamber dimension is normal. 3. Left ventricular systolic function is normal, estimated at 65-70. 4. There is no increased left ventricular wall thickness. 5. The left ventricular diastolic function is grade I diastolic dysfunction. 6. Left atrial chamber dimension is mildly enlarged. 7. There is moderate aortic valve sclerosis. 8. There is mild aortic valve calcification. 9. There is mild mitral valve regurgitation. 10. There is mild tricuspid valve regurgitation. 11. There is mild pulmonic regurgitation. Left Ventricle Left ventricular chamber dimension is normal. Left ventricular systolic function is normal, estimated at 65-70. There is no increased left ventricular wall thickness. The left ventricular diastolic function is grade I diastolic dysfunction. Right Ventricle Right ventricular chamber dimension is normal. Right ventricular systolic function is normal. Left Atria Left atrial chamber dimension is mildly enlarged. Right Atria Right atrial chamber dimension is normal. Atrial Septum Intact interatrial septum visualized by color flow imaging. Aortic Valve The aortic valve is trileaflet. There is moderate aortic valve sclerosis. There is no aortic valve stenosis. There is trace aortic valve regurgitation. There is mild aortic valve calcification. Pulmonic Valve The pulmonic valve is normal. There is no pulmonic valve stenosis. There is mild pulmonic regurgitation. Mitral Valve The mitral valve has normal leaflets. There is no mitral valve stenosis. There is mild mitral valve regurgitation. Tricuspid Valve The tricuspid valve leaflets are normal. There is no significant tricuspid valve stenosis. There is mild tricuspid valve regurgitation. No pulmonary hypertension, estimated pulmonary arterial systolic pressure is 25 mmHg. Pericardium/Pleural The pericardium appears normal. There is no pericardial effusion. Inferior Vena Cava Dilated inferior vena cava with >50% collapse upon inspiration consistent with elevated right atrial pressure, 10 mmHg. Aorta The aortic root size at the sinus of Valsalva is normal. Left Ventricular Outflow Tract Name Value Normal LVOT 2D LVOT Diameter 2.0 cm LVOT Doppler LVOT Peak Velocity 145 cm/s LVOT Peak Gradient 8 mmHg LVOT Mean Gradient 5 mmHg LVOT VTI 37 cm LVOT VTI/AV VTI Ratio 0.7 LVOT Stroke Volume 117 ml LVOT CO 7.5 l/min LVOT CI 4.2 l/min/m2 Pulmonic Valve Name Value Normal RVOT Doppler RVOT Peak Velocity 88 cm/s RVOT Peak Gradient 3 mmHg PV Doppler PV Peak Velocity 132 cm/s PV Peak Gradient 7 mmHg Mitral Valve Name Value Normal MV Diastolic Function MV E Peak Velocity 101 cm/s MV A Peak Velocity 98 cm/s MV E/A 1.0 MV Decel Time (PW) 259 ms MV Annular TDI MV E/e' (Septal) 13.0 MV E/e' (Lateral) 10.0 MV E/e' (Average) 11.5 Tricuspid Valve Name Value Normal Estimated PAP/RSVP RA Pressure 10 mmHg <=5 PA Systolic Pressure 25 mmHg <36 Aortic Valve Name Value Normal AV Doppler AV Peak Velocity 244 cm/s AV Peak Gradient 24 mmHg AV Mean Gradient 13 mmHg AV VTI 55 cm AV Area (Cont Eq VTI) 2.1 cm2 >=3.0 AV Area (Cont Eq Wallace) 1.9 cm2 AV DI (Wallace) 0.60 AV Regurgitation 2D LVOT Area 3.1 cm2 Ventricles Name Value Normal LV Dimensions 2D/MM IVS Diastolic Thickness (2D) 0.8 cm 0.6-1.0 LVID Diastole (2D) 4.5 cm 3.8-5.2 LVIW Diastolic Thickness (2D) 0.9 cm 0.6-0.9 LVID Systole (2D) 2.4 cm 2.2-3.5 LVOT Diameter 2.0 cm LV Mass (2D Cubed) 119.67 g 67.00-162.00 LV Mass Index (2D Cubed) 67 g/m2 43-95 Relative Wall Thickness (2D) 0.41 <=0.42 LV Fractional Shortening/Ejection Fraction 2D/MM LV Fractional Shortening (2D) 46 % 27-45 LV EF (2D Teichholz) 77 % LV Diastolic Volume (4C MOD) 82 ml LV EF (4C MOD) 67 % LV Diastolic Volume (2C MOD) 76 ml LV EF (2C MOD) 65 % LV Diastolic Volume (BP MOD) 79 ml 46-106 LV Diastolic Volume Index (BP MOD) 44 ml/m2 29-61 LV Systolic Volume (BP MOD) 27 ml 14-42 LV Systolic Volume Index (BP MOD) 15 ml/m2 8-24 LV EF (BP MOD) 66 % 54-74 LV Diastolic Length (4C) 7.6 cm LV Systolic Length (4C) 6.3 cm LV Stroke Volume (4C MOD) 55 ml Atria Name Value Normal LA Dimensions LA Volume (4C A-L) 41 ml LA Volume (BP A-L) 47 ml RA Dimensions RA Systolic Major [place] Length (4C) 4.7 cm 2.2-2.8 RA Area (4C) 12.1 cm2 <=18.0 Report Signatures
[2025-03-28] MEDS: HYDROcodone/acetaminophen (*CRX) 5-325 MG TABLET 1 TAB PO ×3 (02:25→18:33)
[2025-03-28 02:52] LABS: Glucose Point of Care 273 mg/dl (65-105)
[2025-03-28] MEDS: ACETAMINOPHEN 325 MG TABLET 650 MG PO (07:05)
[2025-03-28 07:54] LABS: Glucose Point of Care 139 mg/dl (65-105)
--- NOTE | 2025-03-28 08:26 | PM.IMHP ---
H&P: HPI History of Present Illness Date/Time: 03/28/25 08:26 Chief Complaint: Shortness of breath Narrative: 64-year-old female past medical history of hypertension hyperthyroidism, diabetes, asthma, and common variable immunodeficiency presents to the hospital shortness of breath, chest tightness and chest pain. Pertinent ED labs: WBC 6.2, hemoglobin 13, platelet 146 sodium 133, potassium 4.3, creatinine 0.56, glucose 128, magnesium 1.3 BNP 171 Troponin less than 0.012 Chest x-ray shows no acute cardiopulmonary pathology Patient is a chronic smoker for more than 50 years half a pack per day. Patient reports that lately she has ankle swelling and chest tightness. Patient has a history of CVA at the age of 42 and takes aspirin and atorvastatin. Patient the due to her insurance issues its been long she seen a acetylene gas compressor or seed laboratory assistant. Patient reports that she has chronic chest pain but not associated with sweating. Ordered echocardiogram and Lexiscan. In regards to COPD exacerbation patient will be started on ceftriaxone and doxycycline. Patient to not use oxygen at home currently on 2 L. Review of Systems Review of Systems: All systems reviewed & are unremarkable except as noted in HPI and below PMFSH Past Medical History Medical History Stroke ~14 mon ago Hyperlipidemia Hypertension Thyroid disease Anxiety Diabetes mellitus Asthma RLS (restless legs syndrome) CVID (common variable immunodeficiency) Allergic rhinitis Asthma TATUM (obstructive sleep apnea) Tobacco abuse Surgical History Surgical History History of incisional hernia repair Laparoscopic 5 cm reducible recurrent incisional hernia repair with mesh, da Kiko assisted on 08/29/23 [facility] H/O hemicolectomy 01/08/2022 Family History Family History Sibling Cancer Mother Cancer of kidney Other Cerebrovascular accident Diabetes mellitus Heart disease Hypertension Social History Social History Smoking packs per day: 0.25 Smoking cigarettes per day: 5.0 Years smoked: 45 Smoking pack-years: 11.25 Smoking status: Current every day smoker Tobacco type: cigarettes Second hand tobacco smoke exposure: No Additional smoking assessment comments: Smoking 0.5ppd now. Alcohol intake: never Drinks per week: 0 Substance use: current Substance use type: marijuana Other substance usage details: gummies once in awhile Last use: 12/04/24 Do You Feel Safe in your Home?: No Lack of Transportation: No Lack of Food: Never True Current Housing: I Have Housing Concerned About Future Housing: No Difficulty Paying Gas/Electric Bills: No Difficulty Paying for Meds: No Currently Unemployed: No Education: Associate Degree Difficulty w/ Childcare or Family Care: No Living arrangements: alone Gender identity (if verbalized by the patient): Female Spiritual care concerns: No Meds Home Medications and Allergies Home Medications ?Medication ?Instructions ?Recorded ?Confirmed ?Type atorvastatin 40 mg tablet 40 mg PO HS 09/18/19 03/28/25 History famotidine 40 mg tablet 40 mg PO DAILY 09/18/19 03/28/25 History fenofibrate 160 mg tablet 160 mg PO HS 09/18/19 03/28/25 History levothyroxine 50 mcg tablet 50 mcg PO DAILY 09/18/19 03/28/25 History metoprolol tartrate 50 mg tablet 25 mg PO BID 09/18/19 03/28/25 History aspirin 81 mg tablet,delayed 81 mg PO HS 11/25/19 03/28/25 History release estradiol 1 mg tablet 0.5 mg PO HS 05/04/20 03/28/25 History potassium chloride 10 mEq 10 meq PO DAILY 05/04/20 03/28/25 History tablet,extended release ropinirole 0.5 mg tablet 0.5 mg PO TID 05/04/20 03/28/25 History immune glob G 40 gram/400 500 ml IV MONTHLY 06/26/22 03/28/25 History mL(10%)-gly-IgA ave 46 mcg/mL injection soln (Gamunex-C) fluoxetine 20 mg tablet 20 mg PO HS 01/27/23 03/28/25 History gabapentin 400 mg capsule 400 mg PO BID 01/27/23 03/28/25 History (Neurontin) liraglutide 0.6 mg/0.1 mL (18 mg/3 1.8 mg subcut DAILY 08/23/23 03/28/25 History mL) subcutaneous pen injector (Victoza 2-Sean) oxycodone-acetaminophen 10 mg-325 1 - 2 tablet PO Q4H PRN pain #30 11/17/23 06/14/25 Rx mg tablet (Percocet) tabs trazodone 100 mg tablet 100 mg PO HS 10/11/23 03/28/25 History ipratropium 0.5 mg-albuterol 3 mg 3 ml inhalation Q6H PRN shortness 11/07/24 03/28/25 History (2.5 mg base)/3 mL nebulization of breath or wheezing soln ipratropium 0.5 mg-albuterol 3 mg 3 ml inhalation Q6-8H PRN 01/02/25 03/28/25 Rx (2.5 mg base)/3 mL nebulization shortness of breath #90 mL soln Airsupra 90 mcg-80 mcg/actuation 2 inh inhalation DIRECTED #10.7 03/06/25 03/28/25 Rx HFA aerosol inhaler grams (albuterol-budesonide) budesonide 160 mcg-glycopyr 9 2 inh inhalation BID #10.7 grams 03/06/25 03/28/25 Rx mcg-formot 4.8 mcg/actuation HFA inhaler (Breztri Aerosphere) roflumilast 500 mcg tablet See Rx Instructions .Route 03/06/25 03/28/25 Rx (Daliresp) .COMPLEX 90 days #90 tabs glimepiride 2 mg tablet 2 mg PO DAILY 03/28/25 03/28/25 History Allergies Allergy/AdvReac Type Severity Reaction Status Date / Time Sulfa (Sulfonamide Allergy Unknown Nausea and Verified 03/06/25 11:24 Antibiotics) Vomiting Vital Signs Vital Signs - 24 hr 03/27/25 19:17 03/27/25 19:27 03/27/25 19:27 Temperature Pulse Rate 80 79 77 Respiratory Rate 21 H 16 Blood Pressure 140/74 140/74 Pulse Oximetry 92 96 Oxygen Delivery Room Air Room Air Oxygen Flow Rate 03/27/25 19:27 03/27/25 19:30 03/27/25 19:42 Temperature Pulse Rate 80 86 Respiratory Rate 20 20 Blood Pressure 140/74 Pulse Oximetry 96 94 Oxygen Delivery Room Air Oxygen Flow Rate 03/27/25 20:30 03/27/25 20:45 03/27/25 21:30 Temperature Pulse Rate 82 85 94 Respiratory Rate 18 19 22 H Blood Pressure 132/77 136/99 H 147/64 H Pulse Oximetry 100 99 99 Oxygen Delivery Oxygen Flow Rate 03/27/25 21:59 03/27/25 21:59 03/27/25 22:01 Temperature Pulse Rate 91 Respiratory Rate 16 Blood Pressure 123/50 L Pulse Oximetry 87 L 98 98 Oxygen Delivery Nasal Cannula Nasal Cannula Oxygen Flow Rate 2 2 03/27/25 22:46 03/27/25 22:50 03/27/25 23:11 Temperature Pulse Rate 92 92 95 Respiratory Rate 20 16 16 Blood Pressure 135/82 157/79 H Pulse Oximetry 98 98 Oxygen Delivery Oxygen Flow Rate 03/28/25 02:52 03/28/25 05:12 Temperature 97.1 F L 97.4 F L Pulse Rate 102 H 102 H Respiratory Rate 20 20 Blood Pressure 126/50 L 138/61 Pulse Oximetry 93 97 Oxygen Delivery Oxygen Flow Rate Exam Narrative: EXAMINATION OF ORGAN SYSTEMS/BODY AREAS: Constitutional: Vital signs per nursing GENERAL:[No acute distress, non-toxic appearing.] HEAD: Normal with no signs of head trauma. EYES: EOMI, conjunctiva normal ENT: Hearing grossly intact LUNGS: Extensive wheezing bilateral lungs HEART: [Regular rate and rhythm] ABD: [Soft], [nontender to palpation] EXT: Normal range of motion, bilateral lower feet swelling, no tenderness either leg, negative Homans SKIN: [No rashes or lesions.] NEURO: [Alert and oriented x 3. No gross focal sensory or strength deficits.] PSYCH: Normal affect H&P: Results Labs Labs: Short CBC 03/27/25 Range/Units 19:14 WBC 6.2 (4.5-10.0) K/mm3 Hgb 13.0 (12.0-15.0) g/dL Hct 41.2 (37.0-47.0) % Plt Count 146 L (150-375) k/mm3 BMP 03/27/25 19:14 Sodium 133 L Potassium 4.3 Chloride 95 L Carbon Dioxide 33 H BUN 10 Creatinine 0.56 L Glucose 128 H Calcium 9.1 Cardiac Enzymes 03/27/25 Range/Units 19:14 Troponin I < 0.012 (0.000-0.034) ng/mL Liver Function 03/27/25 Range/Units 19:14 Total Bilirubin 0.2 (0.2-1.3) mg/dL AST 28 (14-36) U/L ALT 15 (6-35) U/L Alkaline Phosphatase 62 (38-126) U/L Albumin 3.8 (3.5-5.1) g/dL Assessment and Plan Assessment and plan (1) Chest pain: Qualifiers: Chest pain type: unspecified Qualified Code(s): R07.9 - Chest pain, unspecified Code(s): R07.9 - Chest pain, unspecified Status: Acute (2) COPD exacerbation: Code(s): J44.1 - Chronic obstructive pulmonary disease with (acute) exacerbation Status: Acute Assessment and Plan: Plan COPD Exacerbation Currently on 3 L nasal cannula with no respiratory distress Chest x-ray reviewed Quad screen pending Continue DuoNeb Monitor vitals Monitor culture Nasal MRSA pending Consider Pulmonology consult Chest pain Trend troponin Or[facility] Advance Care Plan I have confirmed that the patient's Advanced Care Plan is present, code status is documented, or surrogate decision maker is listed in patient medical record.: Yes Medication Reconciliation I have utilized all available resources to obtain, update and review the patients current medications (includes all prescriptions, OTC, herbals, cannabis, and nutritional supplements).: Yes
[2025-03-28] MEDS: GABAPENTIN 400 MG CAPSULE PO ×2 (08:38→18:27)
[2025-03-28] MEDS: POTASSIUM CHLORIDE 10 MEQ ER TABLET PO (08:38)
[2025-03-28] MEDS: rOPINIRole HCL 0.5 MG TABLET PO ×3 (08:38→18:27)
[2025-03-28] MEDS: METOPROLOL TARTRATE 25 MG TABLET PO ×2 (08:39→20:05)
[2025-03-28] MEDS: GLIMEPIRIDE 2 MG TABLET PO (08:40)
[2025-03-28] MEDS: FAMOTIDINE 20 MG TABLET 40 MG PO (08:40)
[2025-03-28] MEDS: FLUTICASONE/UMECLIDIN/VILANTER 100-62.5-25 MCG ELLIPTA 1 PUFF INHALATION (08:53)
[2025-03-28] MEDS: ROFLUMILAST 500 MCG TABLET PO (08:54)
[2025-03-28 11:56] LABS: Glucose Point of Care 89 mg/dl (65-105)
[2025-03-28] MEDS: IPRATROPIUM 0.5 MG/ALBUTEROL SULFATE 2.5 MG AMPUL.NEB 3 ML INHALATION ×2 (13:30→21:39)
[2025-03-28] MEDS: MAGNESIUM SULFATE 3GM/D5W100ML 3 GM/100 ML BAG IVPB (14:07)
[2025-03-28] MEDS: DOXYCYCLINE 100 MG/NS 100 ML 100 MG/100 ML BAG IVPB ×2 (14:08→23:35)
[2025-03-28 16:41] LABS: Glucose Point of Care 93 mg/dl (65-105)
--- NOTE | 2025-03-28 17:07 | PC.NURSE ---
On 03/28/25, the SOFTWARE TESTING SPECIALIST, [Dianne HUNTLEY ], provided care and completed [employer] documentation on this patient. I have reviewed the SOFTWARE TESTING SPECIALIST's documentation and agree with the findings.
[2025-03-28] MEDS: oxyCODONE/ACETAMINOPHEN (*CRX) 10-325 MG TABLET PO ×2 (20:02→23:36)
[2025-03-28] MEDS: FLUoxetine HCL 20 MG CAPSULE PO (20:02)
[2025-03-28] MEDS: traZODone HCL 50 MG TABLET 100 MG PO (20:03)
[2025-03-28] MEDS: FENOFIBRATE NANOCRYSTALLIZED 145 MG TABLET PO (20:03)
[2025-03-28] MEDS: ASPIRIN 81 MG ENTERIC TABLET PO (20:04)
[2025-03-28] MEDS: ATORVASTATIN 40 MG TABLET PO (20:04)
[2025-03-28 20:09] LABS: Influenza A QL RT-PCR Negative (Negative); Influenza B QL RT-PCR Negative (Negative); RSV RNA, RT-PCR Negative (Negative); SARS-CoV-2 RNA PCR Negative (Negative)
[2025-03-28 20:46] LABS: MRSA (PCR) NOT DETECTED (NOT DETECTE)
[2025-03-28 22:06] LABS: Glucose Point of Care 173 mg/dl (65-105)
[2025-03-29] VITALS (13 sets, daily range): BP systolic 113–116; BP diastolic 52–68; PULSE 57–85; RESP 16–20; TEMP 36.2–36.9; O2SAT 96–99
[2025-03-29] MEDS: IPRATROPIUM 0.5 MG/ALBUTEROL SULFATE 2.5 MG AMPUL.NEB 3 ML INHALATION ×4 (02:29→19:58)
[2025-03-29] MEDS: HYDROcodone/acetaminophen (*CRX) 5-325 MG TABLET 1 TAB PO ×3 (02:41→19:33)
[2025-03-29] MEDS: LEVOTHYROXINE SODIUM 50 MCG TABLET PO (05:53)
[2025-03-29] MEDS: oxyCODONE/ACETAMINOPHEN (*CRX) 10-325 MG TABLET PO ×3 (05:53→21:42)
[2025-03-29 07:29] LABS: Hematocrit 38.7 % (37.0-47.0); Hemoglobin 12.2 g/dL (12.0-15.0); Mean Corpuscular HGB Conc 31.5 g/dl (32-36); Mean Corpuscular Hemoglobin 27.9 pg (26-34); Mean Corpuscular Volume 88.6 fl (80-100); Mean Platelet Volume 9.7 fl (7.4-10.4); Platelet Count Result 145 k/mm3 (150-375); Red Blood Count 4.37 M/mm3 (4.2-5.4); Red Cell Distribution Width 14.5 % (11.5-14.5)
[2025-03-29 07:42] LABS: Alanine Aminotransferase 17 U/L (6-35); Albumin Level 3.5 g/dL (3.5-5.1); Alkaline Phosphatase 48 U/L (38-126); Anion Gap 5 mmol/L (4-12); Aspartate Amino Transferase 31 U/L (14-36); Bilirubin,Total 0.2 mg/dL (0.2-1.3); Blood Urea Nitrogen 9 mg/dL (7-17); Calcium 8.4 mg/dL (8.4-10.2); Carbon Dioxide 27 mmol/L (22-30); Chloride 98 mmol/L (98-107); Estimated CRCL calculation 100 ml/min; Estimated Glomerular Filt Rate > 60; Glucose 84 mg/dL (65-110); Potassium 4.3 mmol/L (3.4-5.0); Sodium 130 mmol/L (137-145); Total Protein 6.5 g/dL (6.3-8.2)
[2025-03-29 08:10] LABS: Glucose Point of Care 90 mg/dl (65-105)
[2025-03-29 08:48] LABS: Magnesium 1.8 mg/dL (1.6-2.3)
[2025-03-29] MEDS: FLUTICASONE/UMECLIDIN/VILANTER 100-62.5-25 MCG ELLIPTA 1 PUFF INHALATION (08:52)
[2025-03-29] MEDS: DOXYCYCLINE 100 MG/NS 100 ML 100 MG/100 ML BAG IVPB ×2 (08:54→21:39)
[2025-03-29] MEDS: ROFLUMILAST 500 MCG TABLET PO (08:55)
[2025-03-29] MEDS: METOPROLOL TARTRATE 25 MG TABLET PO ×2 (08:55→21:37)
[2025-03-29] MEDS: GABAPENTIN 400 MG CAPSULE PO ×2 (08:55→16:48)
[2025-03-29] MEDS: FAMOTIDINE 20 MG TABLET 40 MG PO (08:55)
[2025-03-29] MEDS: POTASSIUM CHLORIDE 10 MEQ ER TABLET PO (08:55)
[2025-03-29] MEDS: predniSONE 20 MG TABLET 40 MG PO (08:55)
[2025-03-29] MEDS: GLIMEPIRIDE 2 MG TABLET PO (08:55)
[2025-03-29] MEDS: rOPINIRole HCL 0.5 MG TABLET PO ×3 (08:56→16:48)
[2025-03-29] MEDS: ENOXAPARIN 40 MG/0.4 ML SYRINGE SUB-Q (09:19)
[2025-03-29 12:02] LABS: Glucose Point of Care 232 mg/dl (65-105)
[2025-03-29] MEDS: INSULIN ASPART (*BKC) 100 UNITS/ML SUB-Q ×2 (13:54→16:48)
--- NOTE | 2025-03-29 15:44 | PC.NURSE ---
On 03/29/25, the CRIMINALIST TECHNICIAN, [Dianne HUNTLEY ], provided care and completed [employer] documentation on this patient. I have reviewed the CRIMINALIST TECHNICIAN's documentation and agree with the findings.
[2025-03-29 16:33] LABS: Glucose Point of Care 261 mg/dl (65-105)
--- NOTE | 2025-03-29 16:36 | PM.IMPN ---
Progress Note: A&P Assessment and Plan (1) Chest pain: Qualifiers: Chest pain type: unspecified Qualified Code(s): R07.9 - Chest pain, unspecified Code(s): R07.9 - Chest pain, unspecified Status: Acute (2) COPD exacerbation: Code(s): J44.1 - Chronic obstructive pulmonary disease with (acute) exacerbation Status: Acute Plan COPD Exacerbation Currently on 3 L nasal cannula with no respiratory distress Chest x-ray reviewed Quad screen pending Continue DuoNeb Monitor vitals Monitor culture Nasal MRSA pending Consider Pulmonology consult Chest pain Trend troponin echocardiogram shows Left ventricular systolic function is normal, estimated at 65-70. Ordered Lexiscan Subjective Date/time seen: 03/29/25 16:36 Interval history: Pending stress test. Saturating well on 1 L nasal cannula. Will titrate oxygen. Chest pain resolved. Review of Systems Review of Systems: All systems reviewed & are unremarkable except as noted in HPI and below Exam Narrative: EXAMINATION OF ORGAN SYSTEMS/BODY AREAS: Constitutional: Vital signs per nursing GENERAL:[No acute distress, non-toxic appearing.] HEAD: Normal with no signs of head trauma. EYES: EOMI, conjunctiva normal ENT: Hearing grossly intact LUNGS: Extensive wheezing bilateral lungs HEART: [Regular rate and rhythm] ABD: [Soft], [nontender to palpation] EXT: Normal range of motion, bilateral lower feet swelling, no tenderness either leg, negative Homans SKIN: [No rashes or lesions.] NEURO: [Alert and oriented x 3. No gross focal sensory or strength deficits.] PSYCH: Normal affect Objective Data Vital Signs Vital Signs: Vital Signs - 24 hr 03/28/25 20:00 03/28/25 20:05 03/28/25 20:50 Temperature 97.2 F L Pulse Rate 68 68 Respiratory Rate 18 Blood Pressure 137/73 Pulse Oximetry 97 98 Oxygen Delivery Nasal Cannula Oxygen Flow Rate 1 03/28/25 21:39 03/29/25 02:30 03/29/25 02:49 Temperature Pulse Rate 63 65 76 Respiratory Rate 16 16 20 Blood Pressure Pulse Oximetry Oxygen Delivery Oxygen Flow Rate 03/29/25 06:00 03/29/25 08:00 03/29/25 08:55 Temperature 97.1 F L Pulse Rate 57 L 60 Respiratory Rate 18 Blood Pressure 113/52 L Pulse Oximetry 96 Oxygen Delivery Room Air Oxygen Flow Rate 03/29/25 08:55 03/29/25 08:55 03/29/25 10:17 Temperature 97.1 F L Pulse Rate 76 Respiratory Rate 20 Blood Pressure Pulse Oximetry 96 Oxygen Delivery Room Air Oxygen Flow Rate 03/29/25 14:00 03/29/25 14:45 03/29/25 14:49 Temperature 97.5 F L Pulse Rate 71 77 74 Respiratory Rate 16 20 20 Blood Pressure 116/53 L Pulse Oximetry 96 Oxygen Delivery Oxygen Flow Rate Intake/Output Intake/Output: Intake & Output 03/26/25 03/27/25 03/28/25 03/29/25 23:59 23:59 23:59 23:59 Intake Total 50 1770 560 Balance 50 1770 560 Meds/Results Medications: Active Medications Generic Name Dose Route Start Last Admin Trade Name Freq PRN Reason Stop Dose Admin Acetaminophen 650 mg 03/28/25 06:54 03/28/25 07:05 Acetaminophen 325 Mg Tablet PO 650 mg Q6H PRN Administration Mild Pain (1-3) or Fever Hydrocodone Bitart/Acetaminophen 1 tab 03/28/25 08:58 03/29/25 09:17 Hydrocodone/Acetaminophen (*Crx) 5-325 Mg Tablet PO 1 tab Q4H PRN Administration Pain Rated 7-10 Albuterol/Ipratropium 3 ml 03/28/25 14:00 03/29/25 14:42 Ipratropium 0.5 Mg/Albuterol Sulfate 2.5 Mg Ampul.Neb 3 Ml INHALATION 3 ml Q6HRT LISY Administration Aspirin 81 mg 03/28/25 21:00 03/28/25 20:04 Aspirin 81 Mg Enteric Tablet PO 81 mg HS LISY Administration Atorvastatin Calcium 40 mg 03/28/25 21:00 03/28/25 20:04 Atorvastatin 40 Mg Tablet PO 40 mg HS LISY Administration Dextrose 12.5 gm 03/28/25 06:56 Dextrose 50% 25 Gm/50 Ml Syringe IV PUSH PRN PRN Hypoglycemia Protocol Enoxaparin Sodium 40 mg 03/29/25 09:00 03/29/25 09:19 Enoxaparin 40 Mg/0.4 Ml Syringe SUB-Q 40 mg DAILY LISY Administration Famotidine 40 mg 03/28/25 09:00 03/29/25 08:55 Famotidine 20 Mg Tablet PO 40 mg DAILY LISY Administration Fenofibrate 145 mg 03/28/25 21:00 03/28/25 20:03 Fenofibrate Nanocrystallized 145 Mg Tablet PO 145 mg HS LISY Administration Fluoxetine HCl 20 mg 03/28/25 21:00 03/28/25 20:02 Fluoxetine Hcl 20 Mg Capsule PO 20 mg HS LISY Administration Fluticasone/Umeclidinium/Vilanterol 1 puff 03/28/25 08:00 03/29/25 08:52 Fluticasone/Umeclidin/Vilanter 100-62.5-25 Mcg Ellipta INHALATION 1 puff DAILYRT LISY Administration Gabapentin 400 mg 03/28/25 09:00 03/29/25 08:55 Gabapentin 400 Mg Capsule PO 400 mg BID LISY Administration Glimepiride 2 mg 03/28/25 08:00 03/29/25 08:55 Glimepiride 2 Mg Tablet PO 2 mg DAILY@0800 LISY Administration Glucagon 1 mg 03/28/25 06:56 Glucagon For Inj 1 Mg Vial IM PRN PRN Hypoglycemia Protocol Glucose 15 gm 03/28/25 06:56 Glucose Oral Gel 15 Gm Of Glucse In 37.5 Gm Tube PO PRN PRN Hypoglycemia Protocol Dextrose 1,000 mls @ 100 mls/hr 03/28/25 06:56 Dextrose 5% 1,000 Ml IVPB PRN PRN Hypoglycemia Protocol Ceftriaxone Sodium 1 gm in 50 mls @ 100 mls/hr 03/28/25 13:00 03/29/25 13:00 Rocephin 1 Gm/Ns 50 Ml IVPB 100 mls/hr Q24H LISY Administration Doxycycline Hyclate 100 mg in 100 mls @ 100 mls/hr 03/28/25 13:30 03/29/25 08:54 Vibramycin 100 Mg/Ns 100 Ml IVPB 100 mls/hr BID@1000,2200 LISY Administration Insulin Aspart 3 - 6 units 03/28/25 08:00 03/29/25 13:54 Insulin Aspart (*Bkc) 100 Units/Ml SUB-Q 3 units TIDWM LISY Administration Protocol Insulin Aspart 1 - 3 units 03/28/25 21:00 03/28/25 21:24 Insulin Aspart (*Bkc) 100 Units/Ml SUB-Q Not Given HS LISY Protocol Levothyroxine Sodium 50 mcg 03/29/25 06:30 03/29/25 05:53 Levothyroxine Sodium 50 Mcg Tablet PO 50 mcg DAILY@0630 LISY Administration Metoprolol Tartrate 25 mg 03/28/25 09:00 03/29/25 08:55 Metoprolol Tartrate 25 Mg Tablet PO 25 mg Q12HR LISY Administration Oxycodone/Acetaminophen 1 - 2 tab 03/28/25 12:49 03/29/25 13:54 Oxycodone/Acetaminophen (*Crx) 10-325 Mg Tablet PO 1 tab Q4H PRN Administration pain 4-7 Perflutren Lipid Microsphere 0 ml 03/28/25 12:39 Perflutren Lipid Microspheres 1.5 Ml Vial Diluted To 10 Ml Total Volume IV PUSH 03/31/25 12:39 ONCE PRN adequate visualization Protocol Potassium Chloride 10 meq 03/28/25 09:00 03/29/25 08:55 Potassium Chloride 10 Meq Er Tablet PO 10 meq DAILY LISY Administration Prednisone 40 mg 03/29/25 08:00 03/29/25 08:55 Prednisone 20 Mg Tablet PO 04/01/25 07:59 40 mg DAILY@0800 LISY Administration Roflumilast 500 mcg 03/28/25 09:00 03/29/25 08:55 Roflumilast 500 Mcg Tablet PO 500 mcg DAILY LISY Administration Ropinirole HCl 0.5 mg 03/28/25 09:00 03/29/25 13:00 Ropinirole Hcl 0.5 Mg Tablet PO 0.5 mg TID LISY Administration Trazodone HCl 100 mg 03/28/25 21:00 03/28/25 20:03 Trazodone Hcl 50 Mg Tablet PO 100 mg HS LISY Administration Radiology Results: ITS Impressions Chest X-Ray 03/27/25 19:15 IMPRESSION: No acute cardiopulmonary pathology Labs Labs: Laboratory Results - last 24 hr 03/28/25 03/28/25 03/28/25 16:38 19:28 20:08 WBC RBC Hgb Hct MCV MCH MCHC RDW Plt Count MPV Sodium Potassium Chloride Carbon Dioxide Anion Gap BUN Creatinine Estim Creat Clear Calc Estimated GFR Glucose POC Capillary Glucose 93 173 H Calcium Magnesium Total Bilirubin AST ALT Alkaline Phosphatase Total Protein Albumin Nasal MRSA (PCR) Not detected Influenza A (RT-PCR) Negative Influenza B (RT-PCR) Negative RSV (RT-PCR) Negative SARS-CoV-2 RNA (RT-PCR) Negative 03/29/25 03/29/25 03/29/25 06:41 08:08 11:59 WBC 5.0 RBC 4.37 Hgb 12.2 Hct 38.7 MCV 88.6 MCH 27.9 MCHC 31.5 L RDW 14.5 Plt Count 145 L MPV 9.7 Sodium 130 L Potassium 4.3 Chloride 98 Carbon Dioxide 27 Anion Gap 5 BUN 9 Creatinine 0.44 L Estim Creat Clear Calc 100 Estimated GFR > 60 Glucose 84 POC Capillary Glucose 90 232 H Calcium 8.4 Magnesium 1.8 Total Bilirubin 0.2 AST 31 ALT 17 Alkaline Phosphatase 48 Total Protein 6.5 Albumin 3.5 Nasal MRSA (PCR) Influenza A (RT-PCR) Influenza B (RT-PCR) RSV (RT-PCR) SARS-CoV-2 RNA (RT-PCR) 03/29/25 16:30 WBC RBC Hgb Hct MCV MCH MCHC RDW Plt Count MPV Sodium Potassium Chloride Carbon Dioxide Anion Gap BUN Creatinine Estim Creat Clear Calc Estimated GFR Glucose POC Capillary Glucose 261 H Calcium Magnesium Total Bilirubin AST ALT Alkaline Phosphatase Total Protein Albumin Nasal MRSA (PCR) Influenza A (RT-PCR) Influenza B (RT-PCR) RSV (RT-PCR) SARS-CoV-2 RNA (RT-PCR) Hospitalist MIPS Advance Care Plan I have confirmed that the patient's Advanced Care Plan is present, code status is documented, or surrogate decision maker is listed in patient medical record.: Yes Medication Reconciliation I have utilized all available resources to obtain, update and review the patients current medications (includes all prescriptions, OTC, herbals, cannabis, and nutritional supplements).: Yes
[2025-03-29 20:41] LABS: Glucose Point of Care 207 mg/dl (65-105)
[2025-03-29] MEDS: ATORVASTATIN 40 MG TABLET PO (21:37)
[2025-03-29] MEDS: FENOFIBRATE NANOCRYSTALLIZED 145 MG TABLET PO (21:37)
[2025-03-29] MEDS: traZODone HCL 50 MG TABLET 100 MG PO (21:37)
[2025-03-29] MEDS: ASPIRIN 81 MG ENTERIC TABLET PO (21:37)
[2025-03-29] MEDS: FLUoxetine HCL 20 MG CAPSULE PO (21:37)
[2025-03-30] VITALS (15 sets, daily range): BP systolic 107–160; BP diastolic 56–76; PULSE 60–78; RESP 16–21; TEMP 36.5–36.9; O2SAT 92–100
[2025-03-30] MEDS: HYDROcodone/acetaminophen (*CRX) 5-325 MG TABLET 1 TAB PO ×4 (00:30→16:08)
[2025-03-30] MEDS: IPRATROPIUM 0.5 MG/ALBUTEROL SULFATE 2.5 MG AMPUL.NEB 3 ML INHALATION ×4 (02:02→20:08)
[2025-03-30] MEDS: oxyCODONE/ACETAMINOPHEN (*CRX) 10-325 MG TABLET PO ×4 (03:46→21:01)
[2025-03-30 06:06] LABS: Hematocrit 39.8 % (37.0-47.0); Hemoglobin 12.5 g/dL (12.0-15.0); Mean Corpuscular HGB Conc 31.4 g/dl (32-36); Mean Corpuscular Hemoglobin 28.2 pg (26-34); Mean Corpuscular Volume 89.8 fl (80-100); Mean Platelet Volume 9.6 fl (7.4-10.4); Platelet Count Result 153 k/mm3 (150-375); Red Blood Count 4.43 M/mm3 (4.2-5.4); Red Cell Distribution Width 14.2 % (11.5-14.5); White Blood Count 5.7 K/mm3 (4.5-10.0)
[2025-03-30] MEDS: LEVOTHYROXINE SODIUM 50 MCG TABLET PO (06:20)
[2025-03-30 06:23] LABS: Alanine Aminotransferase 18 U/L (6-35); Albumin Level 3.5 g/dL (3.5-5.1); Alkaline Phosphatase 63 U/L (38-126); Anion Gap 4 mmol/L (4-12); Aspartate Amino Transferase 26 U/L (14-36); Bilirubin,Total 0.2 mg/dL (0.2-1.3); Blood Urea Nitrogen 9 mg/dL (7-17); Calcium 8.8 mg/dL (8.4-10.2); Carbon Dioxide 27 mmol/L (22-30); Chloride 104 mmol/L (98-107); Estimated CRCL calculation 102 ml/min; Estimated Glomerular Filt Rate > 60; Glucose 93 mg/dL (65-110); Potassium 4.2 mmol/L (3.4-5.0); Sodium 135 mmol/L (137-145); Total Protein 6.5 g/dL (6.3-8.2)
[2025-03-30 07:48] LABS: Glucose Point of Care 73 mg/dl (65-105)
[2025-03-30] MEDS: FAMOTIDINE 20 MG TABLET 40 MG PO (08:13)
[2025-03-30] MEDS: predniSONE 20 MG TABLET 40 MG PO (08:13)
[2025-03-30] MEDS: GLIMEPIRIDE 2 MG TABLET PO (08:13)
[2025-03-30] MEDS: METOPROLOL TARTRATE 25 MG TABLET PO ×2 (08:13→21:02)
[2025-03-30] MEDS: GABAPENTIN 400 MG CAPSULE PO ×2 (08:13→16:09)
[2025-03-30] MEDS: POTASSIUM CHLORIDE 10 MEQ ER TABLET PO (08:13)
[2025-03-30] MEDS: ROFLUMILAST 500 MCG TABLET PO (08:14)
[2025-03-30] MEDS: FLUTICASONE/UMECLIDIN/VILANTER 100-62.5-25 MCG ELLIPTA 1 PUFF INHALATION (08:14)
[2025-03-30] MEDS: rOPINIRole HCL 0.5 MG TABLET PO ×3 (08:14→16:09)
[2025-03-30] MEDS: ENOXAPARIN 40 MG/0.4 ML SYRINGE SUB-Q (08:25)
[2025-03-30 08:43] LABS: Glucose Point of Care 115 mg/dl (65-105)
[2025-03-30] MEDS: DOXYCYCLINE 100 MG/NS 100 ML 100 MG/100 ML BAG IVPB (09:33)
--- NOTE | 2025-03-30 12:42 | EST_ITS ---
Patient Info Name: Alma Anderson Age: 64 years : 1960 Gender: Female Ht: 62 in Wt: 153 lbs BSA: 1.76 m2 HR: 66 bpm BP: 127 / 69 mmHg Exam Date: 03/30/2025 12:42 PM Patient Status: I Admit Date: 03/28/2025 Exam Type: CA stress sherrill w NM A regadenoson stress test was performed. 4cc Aminophyline given at 2:58 minutes into recovery. Staff Referring Physician: Gael Song Attending Provider: Gael Song Exercise Technologist: Erika Garcias Exercise Physician: Channing Mckeon DO Summary 1. 1. Negative lexiscan stress test for ischemic ST changes by ECG criteria. 2. 2. Stable hemodynamics throughout the test. 3. 3. Nuclear scan to follow and will be reported separately. Please correlate with it. 4. 4. Patient informed of the above results. Protocol: Lexiscan Stress ECG Details Stage: REST Duration (min): 1 min : 53 sec HR (bpm): 65 SBP (mmHg): 127 DBP (mmHg): 69 Stage: REST Duration (min): 7 min : 10 sec HR (bpm): 64 SBP (mmHg): 127 DBP (mmHg): 69 Stage: STAGE 1 Duration (min): 0 min : 59 sec HR (bpm): 73 SBP (mmHg): 129 DBP (mmHg): 71 Stage: RECOVERY Duration (min): 1 min : 0 sec HR (bpm): 87 SBP (mmHg): 129 DBP (mmHg): 71 Stage: RECOVERY Duration (min): 2 min : 0 sec HR (bpm): 91 SBP (mmHg): 129 DBP (mmHg): 71 Stage: RECOVERY Duration (min): 3 min : 0 sec HR (bpm): 84 SBP (mmHg): 145 DBP (mmHg): 68 Stage: RECOVERY Duration (min): 4 min : 0 sec HR (bpm): 78 SBP (mmHg): 145 DBP (mmHg): 68 Stage: RECOVERY Duration (min): 4 min : 5 sec HR (bpm): 77 SBP (mmHg): 145 DBP (mmHg): 68 Rest HR: 64 bpm Peak HR: 91 bpm Rest Sys BP: 127 mmHg Peak Sys BP: 145 mmHg Max Pred HR: 158 bpm % Max Pred HR: 58 % Target HR: 134 bpm Max RPP: 13,195 bpm*mmHg Termination Reason: Completed protocol Cardiac Symptoms: Shortness of breath, Nausea Total Time: 1 min : 0 sec Rest Petty BP: 69 mmHg Peak Petty BP: 68 mmHg Total Dose: 0.4 mg Resting ECG Sinus rhythm. Stress ECG No ECG changes. Aminophylline 100 mg IVx1 given for intolerable nausea. Arrhythmias None. Report Signatures
--- NOTE | 2025-03-30 14:59 | PM.IMPN ---
Progress Note: A&P Assessment and Plan (1) Chest pain: Qualifiers: Chest pain type: unspecified Qualified Code(s): R07.9 - Chest pain, unspecified Code(s): R07.9 - Chest pain, unspecified Status: Acute (2) COPD exacerbation: Code(s): J44.1 - Chronic obstructive pulmonary disease with (acute) exacerbation Status: Acute Plan COPD Exacerbation Currently on 3 L nasal cannula with no respiratory distress Chest x-ray reviewed Quad screen pending Continue DuoNeb Monitor vitals Monitor culture Nasal MRSA pending Consider Pulmonology consult Chest pain Trend troponin echocardiogram shows Left ventricular systolic function is normal, estimated at 65-70. Lexiscan positive Cardiology consulted Subjective Date/time seen: 03/30/25 14:59 Interval history: Patient sherrill scan is positive and consulted Dr. Mckeon Review of Systems Review of Systems: All systems reviewed & are unremarkable except as noted in HPI and below Exam Narrative: EXAMINATION OF ORGAN SYSTEMS/BODY AREAS: Constitutional: Vital signs per nursing GENERAL:[No acute distress, non-toxic appearing.] HEAD: Normal with no signs of head trauma. EYES: EOMI, conjunctiva normal ENT: Hearing grossly intact LUNGS: Extensive wheezing bilateral lungs HEART: [Regular rate and rhythm] ABD: [Soft], [nontender to palpation] EXT: Normal range of motion, bilateral lower feet swelling, no tenderness either leg, negative Homans SKIN: [No rashes or lesions.] NEURO: [Alert and oriented x 3. No gross focal sensory or strength deficits.] PSYCH: Normal affect Objective Data Vital Signs Vital Signs: Vital Signs - 24 hr 03/29/25 19:58 03/29/25 20:09 03/29/25 21:02 Temperature Pulse Rate 76 76 Respiratory Rate 16 16 Blood Pressure Pulse Oximetry 98 Oxygen Delivery Room Air Oxygen Flow Rate Fraction of Inspired Oxygen 03/29/25 21:37 03/29/25 22:00 03/30/25 02:02 Temperature 98.4 F Pulse Rate 84 85 76 Respiratory Rate 18 16 Blood Pressure 113/68 Pulse Oximetry 99 Oxygen Delivery Oxygen Flow Rate Fraction of Inspired Oxygen 03/30/25 02:02 03/30/25 02:12 03/30/25 06:00 Temperature 97.7 F Pulse Rate 76 76 60 Respiratory Rate 21 H 16 16 Blood Pressure 107/56 L Pulse Oximetry 96 95 Oxygen Delivery Autopap Oxygen Flow Rate Fraction of Inspired Oxygen 03/30/25 08:00 03/30/25 08:01 03/30/25 08:01 Temperature Pulse Rate 70 Respiratory Rate 16 Blood Pressure Pulse Oximetry 99 100 Oxygen Delivery Nasal Cannula Room Air Oxygen Flow Rate 1 Fraction of Inspired Oxygen 03/30/25 08:13 03/30/25 08:14 03/30/25 09:30 Temperature Pulse Rate 65 65 Respiratory Rate 16 Blood Pressure Pulse Oximetry 92 Oxygen Delivery Room Air Oxygen Flow Rate Fraction of Inspired Oxygen 03/30/25 13:35 03/30/25 13:35 03/30/25 13:42 Temperature Pulse Rate 66 68 Respiratory Rate 20 20 Blood Pressure Pulse Oximetry 95 Oxygen Delivery Room Air Oxygen Flow Rate Fraction of Inspired Oxygen 03/30/25 14:00 Temperature 97.7 F Pulse Rate 76 Respiratory Rate 16 Blood Pressure 160/76 H Pulse Oximetry 96 Oxygen Delivery Oxygen Flow Rate Fraction of Inspired Oxygen Intake/Output Intake/Output: Intake & Output 03/27/25 03/28/25 03/29/25 03/30/25 23:59 23:59 23:59 23:59 Intake Total 50 1770 930 Balance 50 1770 930 Meds/Results Medications: Active Medications Generic Name Dose Route Start Last Admin Trade Name Freq PRN Reason Stop Dose Admin Acetaminophen 650 mg 03/28/25 06:54 03/28/25 07:05 Acetaminophen 325 Mg Tablet PO 650 mg Q6H PRN Administration Mild Pain (1-3) or Fever Hydrocodone Bitart/Acetaminophen 1 tab 03/28/25 08:58 03/30/25 10:25 Hydrocodone/Acetaminophen (*Crx) 5-325 Mg Tablet PO 1 tab Q4H PRN Administration Pain Rated 7-10 Albuterol/Ipratropium 3 ml 03/28/25 14:00 03/30/25 13:35 Ipratropium 0.5 Mg/Albuterol Sulfate 2.5 Mg Ampul.Neb 3 Ml INHALATION 3 ml Q6HRT LISY Administration Amoxicillin/Clavulanate Potassium 1 tablet 03/31/25 09:00 Amoxicillin/Clavulanate K 875-125 Mg Tab PO 04/01/25 21:01 Q12HR LISY Aspirin 81 mg 03/28/25 21:00 03/29/25 21:37 Aspirin 81 Mg Enteric Tablet PO 81 mg HS LISY Administration Atorvastatin Calcium 40 mg 03/28/25 21:00 03/29/25 21:37 Atorvastatin 40 Mg Tablet PO 40 mg HS LISY Administration Dextrose 12.5 gm 03/28/25 06:56 Dextrose 50% 25 Gm/50 Ml Syringe IV PUSH PRN PRN Hypoglycemia Protocol Doxycycline Hyclate 100 mg 03/30/25 21:00 Doxycycline Hyclate 100 Mg Tablet PO 04/01/25 21:01 Q12HR LISY Enoxaparin Sodium 40 mg 03/29/25 09:00 03/30/25 08:25 Enoxaparin 40 Mg/0.4 Ml Syringe SUB-Q 40 mg DAILY LISY Administration Famotidine 40 mg 03/28/25 09:00 03/30/25 08:13 Famotidine 20 Mg Tablet PO 40 mg DAILY LISY Administration Fenofibrate 145 mg 03/28/25 21:00 03/29/25 21:37 Fenofibrate Nanocrystallized 145 Mg Tablet PO 145 mg HS LISY Administration Fluoxetine HCl 20 mg 03/28/25 21:00 03/29/25 21:37 Fluoxetine Hcl 20 Mg Capsule PO 20 mg HS LISY Administration Fluticasone/Umeclidinium/Vilanterol 1 puff 03/28/25 08:00 03/30/25 08:14 Fluticasone/Umeclidin/Vilanter 100-62.5-25 Mcg Ellipta INHALATION 1 puff DAILYRT LISY Administration Gabapentin 400 mg 03/28/25 09:00 03/30/25 08:13 Gabapentin 400 Mg Capsule PO 400 mg BID LISY Administration Glimepiride 2 mg 03/28/25 08:00 03/30/25 08:13 Glimepiride 2 Mg Tablet PO 2 mg DAILY@0800 LISY Administration Glucagon 1 mg 03/28/25 06:56 Glucagon For Inj 1 Mg Vial IM PRN PRN Hypoglycemia Protocol Glucose 15 gm 03/28/25 06:56 Glucose Oral Gel 15 Gm Of Glucse In 37.5 Gm Tube PO PRN PRN Hypoglycemia Protocol Dextrose 1,000 mls @ 100 mls/hr 03/28/25 06:56 Dextrose 5% 1,000 Ml IVPB PRN PRN Hypoglycemia Protocol Insulin Aspart 3 - 6 units 03/28/25 08:00 03/30/25 13:01 Insulin Aspart (*Bkc) 100 Units/Ml SUB-Q Not Given TIDWM [facility] Protocol Insulin Aspart 1 - 3 units 03/28/25 21:00 03/29/25 21:38 Insulin Aspart (*Bkc) 100 Units/Ml SUB-Q Not Given HS [facility] Protocol Levothyroxine Sodium 50 mcg 03/29/25 06:30 03/30/25 06:20 Levothyroxine Sodium 50 Mcg Tablet PO 50 mcg DAILY@0630 LISY Administration Metoprolol Tartrate 25 mg 03/28/25 09:00 03/30/25 08:13 Metoprolol Tartrate 25 Mg Tablet PO 25 mg Q12HR LISY Administration Oxycodone/Acetaminophen 1 - 2 tab 03/28/25 12:49 03/30/25 13:24 Oxycodone/Acetaminophen (*Crx) 10-325 Mg Tablet PO 2 tab Q4H PRN Administration pain 4-7 Perflutren Lipid Microsphere 0 ml 03/28/25 12:39 Perflutren Lipid Microspheres 1.5 Ml Vial Diluted To 10 Ml Total Volume IV PUSH 03/31/25 12:39 ONCE PRN adequate visualization Protocol Potassium Chloride 10 meq 03/28/25 09:00 03/30/25 08:13 Potassium Chloride 10 Meq Er Tablet PO 10 meq DAILY LISY Administration Prednisone 40 mg 03/29/25 08:00 03/30/25 08:13 Prednisone 20 Mg Tablet PO 04/01/25 07:59 40 mg DAILY@0800 LISY Administration Roflumilast 500 mcg 03/28/25 09:00 03/30/25 08:14 Roflumilast 500 Mcg Tablet PO 500 mcg DAILY LISY Administration Ropinirole HCl 0.5 mg 03/28/25 09:00 03/30/25 13:22 Ropinirole Hcl 0.5 Mg Tablet PO 0.5 mg TID LISY Administration Trazodone HCl 100 mg 03/28/25 21:00 03/29/25 21:37 Trazodone Hcl 50 Mg Tablet PO 100 mg HS LISY Administration Radiology Results: ITS Impressions Chest X-Ray 03/27/25 19:15 IMPRESSION: No acute cardiopulmonary pathology Lexiscan Stress Test 03/30/25 12:33 IMPRESSION: 1. 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 No reversible ischemia.. 2. Left ventricular ejection fraction measuring >70%. Labs Labs: Laboratory Results - last 24 hr 03/29/25 03/29/25 03/30/25 16:30 20:22 05:50 WBC 5.7 RBC 4.43 Hgb 12.5 Hct 39.8 MCV 89.8 MCH 28.2 MCHC 31.4 L RDW 14.2 Plt Count 153 MPV 9.6 Sodium 135 L Potassium 4.2 Chloride 104 Carbon Dioxide 27 Anion Gap 4 BUN 9 Creatinine 0.43 L Estim Creat Clear Calc 102 Estimated GFR > 60 Glucose 93 POC Capillary Glucose 261 H 207 H Calcium 8.8 Total Bilirubin 0.2 AST 26 ALT 18 Alkaline Phosphatase 63 Total Protein 6.5 Albumin 3.5 03/30/25 03/30/25 07:24 08:38 WBC RBC Hgb Hct MCV MCH MCHC RDW Plt Count MPV Sodium Potassium Chloride Carbon Dioxide Anion Gap BUN Creatinine Estim Creat Clear Calc Estimated GFR Glucose POC Capillary Glucose 73 115 H Calcium Total Bilirubin AST ALT Alkaline Phosphatase Total Protein Albumin Hospitalist MIPS Advance Care Plan I have confirmed that the patient's Advanced Care Plan is present, code status is documented, or surrogate decision maker is listed in patient medical record.: Yes Medication Reconciliation I have utilized all available resources to obtain, update and review the patients current medications (includes all prescriptions, OTC, herbals, cannabis, and nutritional supplements).: Yes
[2025-03-30 16:35] LABS: Glucose Point of Care 438 mg/dl (65-105)
[2025-03-30] MEDS: SODIUM CHLORIDE 0.9% IV 1,000 ML 75 ML IV CONT (16:59)
[2025-03-30] MEDS: INSULIN ASPART (*BKC) 100 UNITS/ML 10 UNITS SUB-Q (17:05)
[2025-03-30 18:05] LABS: Glucose Point of Care 386 mg/dl (65-105)
[2025-03-30 18:05] LABS: Glucose Point of Care 336 mg/dl (65-105)
--- NOTE | 2025-03-30 18:33 | P.CONCA_ITS ---
Assessment and Plan Assessment and plan (1) Chest pain: Qualifiers: Chest pain type: unspecified Qualified Code(s): R07.9 - Chest pain, unspecified Code(s): R07.9 - Chest pain, unspecified Status: Acute Assessment and Plan: Probably pulmonary related. No ACS. Troponin and EKG are negative. Echo is normal. Lexiscan myoview shows no ischemia. No further cardiac workup is needed. Will sign off, please call with any questions. Have her f/u with me in 2 weeks upon discharge. (2) Tobacco abuse: Code(s): Z72.0 - Tobacco use Status: Acute Assessment and Plan: Counseled regarding smoking cessation. (3) Hypertension: Code(s): I10 - Essential (primary) hypertension Status: Acute Assessment and Plan: Stable. (4) Hyperlipidemia: Code(s): E78.5 - Hyperlipidemia, unspecified Status: Acute Assessment and Plan: On Atorvastatin. (5) COPD (chronic obstructive pulmonary disease): Qualifiers: COPD type: COPD with acute exacerbation Qualified Code(s): J44.1 - Chronic obstructive pulmonary disease with (acute) exacerbation Code(s): J44.9 - Chronic obstructive pulmonary disease, unspecified Status: Chronic Assessment and Plan: On antibiotics and steroids. (6) CAD (coronary artery disease): Code(s): I25.10 - Atherosclerotic heart disease of [place] coronary artery without angina pectoris Status: Acute Assessment and Plan: Stable with no ischemia on nuclear stress test. On aspirin and statin. History of Present Illness History of Present Illness Consult date/time: 03/30/25 18:33 Reason For Visit: asthma/COPD exac Narrative: 64 yr old woman who is my regular cardiology patient a patient of Dr. Guerra presents to ER with chest pain. She has a history of CAD on CT, dyslipidemia, COPD, smoking, family history of father with CAD/RI and from it and uncles with CAD, and brother had CABG. Reports intermittent chest pain as sharp and and tightness randomly happens every other day. Currently not having any chest pain. She can walk 1/2 block and [place]. She smokes 1/4 ppd as she is trying to quit. She has extra beats occasionally. Denies orthopnea, PND, edema, dizziness. Cardiovascular Procedures Echo/MUGA:: 12/06/24 Echo: EF 60-65%, grade I diastolic dysfunction (E/e' 10), mild LAE, RVSP 43 mmHg. Electrophysiology:: 01/01/25 EKG: Sinus rhythm, anteroseptal infarct, age indeterminate. Stress Tests:: 02/02/25 CT lung: Extensive coronary calcifications. 12/08/24 CTA chest: No pulm embolism. Review of Systems 2 Review of Systems: All systems reviewed & are unremarkable except as noted in HPI and below Constitutional: Constitutional: Reports as per HPI, Denies chills and Denies fever(s) Cardiovascular: Cardiovascular: Reports as per HPI, Reports chest pain and Denies irregular heart rhythm Respiratory: Respiratory: Reports as per HPI and Reports dyspnea Gastrointestinal: Gastrointestinal: Reports as per HPI and Denies abdominal pain Genitourinary: Genitourinary: Reports as per HPI and Denies dysuria Musculoskeletal: Musculoskeletal: Reports as per HPI Neurologic: Reports as per HPI, Denies dizziness and Denies syncope [facility] Past Medical History Medical History Stroke ~14 mon ago Hyperlipidemia Hypertension Thyroid disease Anxiety Diabetes mellitus Asthma RLS (restless legs syndrome) CVID (common variable immunodeficiency) Allergic rhinitis Asthma TATUM (obstructive sleep apnea) Tobacco abuse Surgical History Surgical History History of incisional hernia repair Laparoscopic 5 cm reducible recurrent incisional hernia repair with mesh, da Kiko assisted on 08/29/23 [facility] H/O hemicolectomy 01/08/2022 Family History Family History Sibling Cancer Mother Cancer of kidney Other Cerebrovascular accident Diabetes mellitus Heart disease Hypertension Social History Social History Smoking packs per day: 0.25 Smoking cigarettes per day: 5.0 Years smoked: 45 Smoking pack-years: 11.25 Smoking status: Current every day smoker Tobacco type: cigarettes Second hand tobacco smoke exposure: No Additional smoking assessment comments: Smoking 0.5ppd now. Alcohol intake: never Drinks per week: 0 Substance use: current Substance use type: marijuana Other substance usage details: gummies once in awhile Last use: 12/04/24 Do You Feel Safe in your Home?: No Lack of Transportation: No Lack of Food: Never True Current Housing: I Have Housing Concerned About Future Housing: No Difficulty Paying Gas/Electric Bills: No Difficulty Paying for Meds: No Currently Unemployed: No Education: Associate Degree Difficulty w/ Childcare or Family Care: No Living arrangements: alone Gender identity (if verbalized by the patient): Female Spiritual care concerns: No Meds Home Medications and Allergies Home Medications ?Medication ?Instructions ?Recorded ?Confirmed ?Type atorvastatin 40 mg tablet 40 mg PO HS 09/18/19 03/28/25 History famotidine 40 mg tablet 40 mg PO DAILY 09/18/19 03/28/25 History fenofibrate 160 mg tablet 160 mg PO HS 09/18/19 03/28/25 History levothyroxine 50 mcg tablet 50 mcg PO DAILY 09/18/19 03/28/25 History metoprolol tartrate 50 mg tablet 25 mg PO BID 09/18/19 03/28/25 History aspirin 81 mg tablet,delayed 81 mg PO HS 11/25/19 03/28/25 History release estradiol 1 mg tablet 0.5 mg PO HS 05/04/20 03/28/25 History potassium chloride 10 mEq 10 meq PO DAILY 05/04/20 03/28/25 History tablet,extended release ropinirole 0.5 mg tablet 0.5 mg PO TID 05/04/20 03/28/25 History immune glob G 40 gram/400 500 ml IV MONTHLY 06/26/22 03/28/25 History mL(10%)-gly-IgA ave 46 mcg/mL injection soln (Gamunex-C) fluoxetine 20 mg tablet 20 mg PO HS 01/27/23 03/28/25 History gabapentin 400 mg capsule 400 mg PO BID 01/27/23 03/28/25 History (Neurontin) liraglutide 0.6 mg/0.1 mL (18 mg/3 1.8 mg subcut DAILY 08/23/23 03/28/25 History mL) subcutaneous pen injector (Victoza 2-Sean) oxycodone-acetaminophen 10 mg-325 1 - 2 tablet PO Q4H PRN pain #30 08/31/23 03/28/25 Rx mg tablet (Percocet) tabs trazodone 100 mg tablet 100 mg PO HS 10/11/23 03/28/25 History ipratropium 0.5 mg-albuterol 3 mg 3 ml inhalation Q6H PRN shortness 11/07/24 03/28/25 History (2.5 mg base)/3 mL nebulization of breath or wheezing soln ipratropium 0.5 mg-albuterol 3 mg 3 ml inhalation Q6-8H PRN 01/02/25 03/28/25 Rx (2.5 mg base)/3 mL nebulization shortness of breath #90 mL soln Airsupra 90 mcg-80 mcg/actuation 2 inh inhalation DIRECTED #10.7 03/06/25 03/28/25 Rx HFA aerosol inhaler grams (albuterol-budesonide) budesonide 160 mcg-glycopyr 9 2 inh inhalation BID #10.7 grams 03/06/25 03/28/25 Rx mcg-formot 4.8 mcg/actuation HFA inhaler (Breztri Aerosphere) roflumilast 500 mcg tablet See Rx Instructions .Route 03/06/25 03/28/25 Rx (Daliresp) .COMPLEX 90 days #90 tabs glimepiride 2 mg tablet 2 mg PO DAILY 03/28/25 03/28/25 History Allergies Allergy/AdvReac Type Severity Reaction Status Date / Time Sulfa (Sulfonamide Allergy Unknown Nausea and Verified 03/06/25 11:24 Antibiotics) Vomiting Vital Signs Vital Signs - 24 hr 03/29/25 19:58 03/29/25 20:09 03/29/25 21:02 Temperature Pulse Rate 76 76 Respiratory Rate 16 16 Blood Pressure Pulse Oximetry 98 Oxygen Delivery Room Air Oxygen Flow Rate Fraction of Inspired Oxygen 03/29/25 21:37 03/29/25 22:00 03/30/25 02:02 Temperature 98.4 F Pulse Rate 84 85 76 Respiratory Rate 18 16 Blood Pressure 113/68 Pulse Oximetry 99 Oxygen Delivery Oxygen Flow Rate Fraction of Inspired Oxygen 03/30/25 02:02 03/30/25 02:12 03/30/25 06:00 Temperature 97.7 F Pulse Rate 76 76 60 Respiratory Rate 21 H 16 16 Blood Pressure 107/56 L Pulse Oximetry 96 95 Oxygen Delivery Autopap Oxygen Flow Rate Fraction of Inspired Oxygen 03/30/25 08:00 03/30/25 08:01 03/30/25 08:01 Temperature Pulse Rate 70 Respiratory Rate 16 Blood Pressure Pulse Oximetry 99 100 Oxygen Delivery Nasal Cannula Room Air Oxygen Flow Rate 1 Fraction of Inspired Oxygen 21 03/30/25 08:13 03/30/25 08:14 03/30/25 09:30 Temperature Pulse Rate 65 65 Respiratory Rate 16 Blood Pressure Pulse Oximetry 92 Oxygen Delivery Room Air Oxygen Flow Rate Fraction of Inspired Oxygen 03/30/25 13:35 03/30/25 13:35 03/30/25 13:42 Temperature Pulse Rate 66 68 Respiratory Rate 20 20 Blood Pressure Pulse Oximetry 95 Oxygen Delivery Room Air Oxygen Flow Rate Fraction of Inspired Oxygen 21 03/30/25 14:00 Temperature 97.7 F Pulse Rate 76 Respiratory Rate 16 Blood Pressure 160/76 H Pulse Oximetry 96 Oxygen Delivery Oxygen Flow Rate Fraction of Inspired Oxygen Exam 2 Const: General: cooperative, healthy appearing and comfortable Resp: Auscultation: wheezes and diminished lung sounds Other: Coarse breath sounds bilaterally Cardio: Rate: regular rate Rhythm: regular rhythm Heart sounds: no murmurs Peripheral pulses: dorsalis pedis present GI: GI Palp: No abdominal tenderness and Yes Soft to palpation Neuro: General: oriented to person, oriented to place and oriented to time Extrem: Right lower extremity: no edema Left lower extremity: no edema Results Labs and Meds 03/30/25 05:50 03/30/25 05:50 Lab results: Cardiac Enzymes 03/30/25 Range/Units 05:50 AST 26 (14-36) U/L CBC 03/30/25 Range/Units 05:50 WBC 5.7 (4.5-10.0) K/mm3 RBC 4.43 (4.2-5.4) M/mm3 Hgb 12.5 (12.0-15.0) g/dL Hct 39.8 (37.0-47.0) % Plt Count 153 (150-375) k/mm3 Comprehensive Metabolic Panel 03/30/25 Range/Units 05:50 Sodium 135 L (137-145) mmol/L Potassium 4.2 (3.4-5.0) mmol/L Chloride 104 (98-107) mmol/L Carbon Dioxide 27 (22-30) mmol/L BUN 9 (7-17) mg/dL Creatinine 0.43 L (0.7-1.0) mg/dL Glucose 93 (65-110) mg/dL Calcium 8.8 (8.4-10.2) mg/dL AST 26 (14-36) U/L ALT 18 (6-35) U/L Alkaline Phosphatase 63 (38-126) U/L Total Protein 6.5 (6.3-8.2) g/dL Albumin 3.5 (3.5-5.1) g/dL Intake and Output 03/30/25 03/30/25 03/30/25 07:59 15:59 23:59 Intake Total 240 240 Balance 240 240 Intake: Oral 240 240 Other: # Unmeasured Voids 3 4 Number of Bowel Movements Today 1
[2025-03-30] MEDS: traZODone HCL 50 MG TABLET 100 MG PO (21:01)
[2025-03-30] MEDS: FENOFIBRATE NANOCRYSTALLIZED 145 MG TABLET PO (21:01)
[2025-03-30] MEDS: ASPIRIN 81 MG ENTERIC TABLET PO (21:02)
[2025-03-30] MEDS: ATORVASTATIN 40 MG TABLET PO (21:02)
[2025-03-30] MEDS: FLUoxetine HCL 20 MG CAPSULE PO (21:02)
[2025-03-30] MEDS: DOXYCYCLINE HYCLATE 100 MG TABLET PO (21:02)
[2025-03-30] MEDS: INSULIN GLARGINE (*BKC) 100 UNITS/ML 10 UNITS SUB-Q (21:04)
[2025-03-30] MEDS: INSULIN ASPART (*BKC) 100 UNITS/ML SUB-Q (21:05)
[2025-03-30 22:06] LABS: Glucose Point of Care 246 mg/dl (65-105)
[2025-03-31] VITALS (9 sets, daily range): BP systolic 132–142; BP diastolic 66–72; PULSE 60–74; RESP 14–20; TEMP 36.2–36.9; O2SAT 95–97
[2025-03-31] MEDS: oxyCODONE/ACETAMINOPHEN (*CRX) 10-325 MG TABLET PO ×2 (01:25→09:05)
[2025-03-31] MEDS: IPRATROPIUM 0.5 MG/ALBUTEROL SULFATE 2.5 MG AMPUL.NEB 3 ML INHALATION ×3 (02:10→13:39)
[2025-03-31] MEDS: HYDROcodone/acetaminophen (*CRX) 5-325 MG TABLET 1 TAB PO ×2 (06:10→12:16)
[2025-03-31] MEDS: LEVOTHYROXINE SODIUM 50 MCG TABLET PO (06:10)
[2025-03-31] MEDS: SODIUM CHLORIDE 0.9% IV 1,000 ML 75 ML IV CONT (06:10)
[2025-03-31] MEDS: FLUTICASONE/UMECLIDIN/VILANTER 100-62.5-25 MCG ELLIPTA 1 PUFF INHALATION (07:43)
[2025-03-31 08:04] LABS: Glucose Point of Care 69 mg/dl (65-105)
[2025-03-31] MEDS: FAMOTIDINE 20 MG TABLET 40 MG PO (09:04)
[2025-03-31] MEDS: ROFLUMILAST 500 MCG TABLET PO (09:04)
[2025-03-31] MEDS: DOXYCYCLINE HYCLATE 100 MG TABLET PO (09:04)
[2025-03-31] MEDS: GLIMEPIRIDE 2 MG TABLET PO (09:04)
[2025-03-31] MEDS: AMOXICILLIN/CLAVULANATE K 875-125 MG TAB 1 TABLET PO (09:04)
[2025-03-31] MEDS: METOPROLOL TARTRATE 25 MG TABLET PO (09:05)
[2025-03-31] MEDS: rOPINIRole HCL 0.5 MG TABLET PO ×2 (09:06→12:16)
[2025-03-31] MEDS: GABAPENTIN 400 MG CAPSULE PO (09:06)
[2025-03-31] MEDS: POTASSIUM CHLORIDE 10 MEQ ER TABLET PO (09:06)
[2025-03-31] MEDS: ENOXAPARIN 40 MG/0.4 ML SYRINGE SUB-Q (09:07)
[2025-03-31 09:28] LABS: Glucose Point of Care 81 mg/dl (65-105)
[2025-03-31 11:22] LABS: Glucose Point of Care 157 mg/dl (65-105)
--- NOTE | 2025-03-31 11:48 | PM.DS ---
DS: Admitting Diagnosis Discharge Date 0 03/31/2025 Admitting Diagnosis Shortness of breath DS: Discharge Diagnosis Discharge Diagnosis (1) Chest pain: Qualifiers: Chest pain type: unspecified Qualified Code(s): R07.9 - Chest pain, unspecified Code(s): R07.9 - Chest pain, unspecified Status: Acute (2) COPD exacerbation: Code(s): J44.1 - Chronic obstructive pulmonary disease with (acute) exacerbation Status: Acute Plan Please refer to hospital course for brief summary COPD Exacerbation Currently on 3 L nasal cannula with no respiratory distress Chest x-ray reviewed Quad screen pending Continue DuoNeb Monitor vitals Monitor culture Nasal MRSA pending Consider Pulmonology consult Chest pain Trend troponin echocardiogram shows Left ventricular systolic function is normal, estimated at 65-70. Lexiscan positive Cardiology consulted DS: Summary Hospital Course Hospital Course: 64-year-old female past medical history of hypertension hyperthyroidism, diabetes, asthma, and common variable immunodeficiency presents to the hospital shortness of breath, chest tightness and chest pain. Pertinent ED labs: WBC 6.2, hemoglobin 13, platelet 146 sodium 133, potassium 4.3, creatinine 0.56, glucose 128, magnesium 1.3 BNP 171 Troponin less than 0.012 Chest x-ray shows no acute cardiopulmonary pathology Patient is a chronic smoker for more than 50 years half a pack per day. Patient reports that lately she has ankle swelling and chest tightness. Patient has a history of CVA at the age of 42 and takes aspirin and atorvastatin. Patient the due to her insurance issues its been long she seen a licensed marine engineer or road maker. Patient reports that she has chronic chest pain but not associated with sweating. Ordered echocardiogram and Lexiscan. In regards to COPD exacerbation patient will be started on ceftriaxone and doxycycline. Patient to not use oxygen at home currently on 2 L. In regards to COPD exacerbation patient is in baseline. Patient will complete a Augmentin and doxycycline until 0 04/01 In regards to chest pain patient underwent Lexiscan. Stress test:1. 1. Negative lexiscan stress test for ischemic ST changes by ECG criteria. 2. 2. Stable hemodynamics throughout the test. 3. 3. Nuclear scan to follow and will be reported separately. Please correlate with it. 4. 4. Patient informed of the above results Lexiscan:1. 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 No reversible ischemia.. 2. Left ventricular ejection fraction measuring >70%. Echocardiogram shows Left ventricular systolic function is normal, estimated at 65-70. Cardiology was consulted. Outpatient follow-up On the day of discharge, the patient was seen and examined. Vital signs were stable. Physical exam were stable and labs were reviewed at length. Discharge instructions, medications, and follow-up appointments were discussed with the patient at length and all day questions were answered. ER warnings were given. Status at Discharge Cognitive/behavioral status at discharge: Stable Time Spent with Patient Time attestation: Total time spent providing and/or coordinating discharge services: 45 minutes Exam Narrative: EXAMINATION OF ORGAN SYSTEMS/BODY AREAS: Constitutional: Vital signs per nursing GENERAL:[No acute distress, non-toxic appearing.] HEAD: Normal with no signs of head trauma. EYES: EOMI, conjunctiva normal ENT: Hearing grossly intact LUNGS: Extensive wheezing bilateral lungs HEART: [Regular rate and rhythm] ABD: [Soft], [nontender to palpation] EXT: Normal range of motion, bilateral lower feet swelling, no tenderness either leg, negative Homans SKIN: [No rashes or lesions.] NEURO: [Alert and oriented x 3. No gross focal sensory or strength deficits.] PSYCH: Normal affect DS: Data Data Completed and Pending Labs on day of discharge: Labs from last 24 hours 03/31/25 03/31/25 03/31/25 11:10 09:10 07:44 POC Capillary Glucose 157 H 81 69 03/30/25 03/30/25 03/30/25 20:47 18:00 17:05 POC Capillary Glucose 246 H 336 H 386 H 03/30/25 16:30 POC Capillary Glucose 438 H Imaging Radiologist's impression: ITS Impressions Chest X-Ray 03/27/25 19:15 IMPRESSION: No acute cardiopulmonary pathology Lexiscan Stress Test 03/30/25 12:33 IMPRESSION: 1. 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 No reversible ischemia.. 2. Left ventricular ejection fraction measuring >70%. Discharge Plan Discharge Attending physician on discharge: Gael Song Consulting providers: Channing Mckeon Discharging Clinician: Gael Song Anticipated Discharge Date/Time: 03/31/25 13:09 Patient Disposition: Home Activity: as tolerated Diet: heart healthy and diabetic Discharge Instructions: Printed and given stress test result. Closely follow up with Cardiology Check blood pressure 1 to 2 times a day. Record and bring into your doctor for review. Call your doctor if your blood pressure is greater than 180/110 or less than 90/45. Walk with cane or other assist device. Take precautions to avoid falls. Rise slowly from a lying or sitting position. Pause before standing or walking. Contact your doctor or call 911 and come to the Emergency Room if you have any type of trauma, lightheadedness with standing or other worrisome symptoms. Avoid NSAIDs (ibuprofen, naproxen, Aleve). Tylenol is safe to take. Follow-up with your primary care provider in 1-2 weeks. Please call for appointment. Follow-up with Cardiology in 2-4 weeks. Please call for an appointment. Thank you for using [facility] for your health care needs. Patient Instructions: Antibiotic Form Patient Language: [place] Stand Alone Forms: General Discharge Information Follow-up/Referrals: Channing Mckeon DO [Physician] - Angel Guerra MD [Primary Care Provider] - Discharge Medications: New doxycycline hyclate 100 mg Tablet 100 mg PO Q12HR Qty: 4 0RF amoxicillin-pot clavulanate 875-125 mg tablet 1 tablet PO Q12H Qty: 4 0RF Continued ipratropium-albuterol 0.5 mg-3 mg(2.5 mg base)/3 mL solution for nebulization 3 ml inhalation Q6H PRN (Reason: shortness of breath or wheezing) atorvastatin 40 mg tablet 40 mg PO HS famotidine 40 mg tablet 40 mg PO DAILY fenofibrate 160 mg tablet 160 mg PO HS levothyroxine 50 mcg tablet 50 mcg PO DAILY metoprolol tartrate 50 mg tablet 25 mg PO BID Rx Instructions: pt stats, takes half in the morning and half at night. aspirin 81 mg tablet,delayed release (DR/EC) 81 mg PO HS Gamunex-C 40 gram/400 mL (10 %) solution 500 ml IV MONTHLY Patient Comments: Pt to verify date of last dose belived schedule for next week Rx Instructions: 50g q28 days Airsupra 90-80 mcg/actuation HFA aerosol inhaler 2 inh inhalation DIRECTED Qty: 10.7 5RF Rx Instructions: as a single dose; may repeat up to 6 doses per day (12 inhalations) roflumilast [Daliresp] 500 mcg tablet See Rx Instructions .ROUTE .COMPLEX 90 Days Qty: 90 3RF Dose Instruction: TAKE 1 TABLET BY MOUTH DAILY Rx Instructions: TAKE 1 TABLET BY MOUTH DAILY. Breztri Aerosphere 160-9-4.8 mcg/actuation HFA aerosol inhaler 2 inh INHALATION BID Qty: 10.7 11RF Rx Instructions: rinse and spit potassium chloride 10 mEq tablet extended release 10 meq PO DAILY estradiol 1 mg tablet 0.5 mg PO HS ropinirole 0.5 mg Tablet 0.5 mg PO TID gabapentin [Neurontin] 400 mg capsule 400 mg PO BID fluoxetine 20 mg tablet 20 mg PO HS ipratropium-albuterol 0.5 mg-3 mg(2.5 mg base)/3 mL solution for nebulization 3 ml inhalation Q6-8H PRN (Reason: shortness of breath) Qty: 90 0RF glimepiride 2 mg tablet 2 mg PO DAILY liraglutide [Victoza 2-Sean] 0.6 mg/0.1 mL (18 mg/3 mL) Pen Injector 1.8 mg SUBCUT DAILY oxycodone-acetaminophen [Percocet] 10-325 mg tablet 1 - 2 tablet PO Q4H PRN (Reason: pain) Qty: 30 0RF trazodone 100 mg tablet 100 mg PO HS Date of admission: 03/28/25 00:56 Primary Care Provider: Angel Guerra Admitting Provider: Gael Song Attending physician on admission: Gael Song Condition: Stable
== END 2025-03-31 14:50 | disposition home or self-care (01) ==
LOC: ANHED 19:20 → ANH3MEDSUR 03-28 01:52
PROVIDERS: Admitting Provider General Practice; Emergency Provider Emergency Medicine; PCP Family Medicine; Visit Provider General Practice
DX: J44.1 Chronic obstructive pulmonary disease with (acute) exacerbation (principal); R07.9 Chest pain, unspecified; I25.10 Atherosclerotic heart disease of native coronary artery without angina pectoris; F17.210 Nicotine dependence, cigarettes, uncomplicated; E78.5 Hyperlipidemia, unspecified; I10 Essential (primary) hypertension; F41.9 Anxiety disorder, unspecified; E11.9 Type 2 diabetes mellitus without complications; G25.81 Restless legs syndrome; D83.9 Common variable immunodeficiency, unspecified; G47.33 Obstructive sleep apnea (adult) (pediatric); E05.90 Thyrotoxicosis, unspecified without thyrotoxic crisis or storm; Z20.822 Contact with and (suspected) exposure to COVID-19; Z79.51 Long term (current) use of inhaled steroids; Z79.82 Long term (current) use of aspirin; Z79.899 Other long term (current) drug therapy; Z82.49 Family history of ischemic heart disease and other diseases of the circulatory system; Z86.73 Personal history of transient ischemic attack (TIA), and cerebral infarction without residual deficits
CPT/HCPCS: 36415; 71045; 78452; 80053; 82948; 83735; 83880; 84484; 85025; 85027; 87637; 87641; 93005; 93017; 93306; 94640; 96361; 96365; 96366; 96367; 96375; 96376; 99285; A9270; A9502; G0378; G0379; J0280; J0696; J1650; J1815; J2785; J2919; J3475; J7030; J7512

== ENCOUNTER 2025-05-01 11:48 | Emergency (ER) | payer OTHER, SELFPAY ==
--- NOTE | ~2025-05-01 | XR_ITS ---
Left wrist Technique: PA, oblique, lateral, and ulnar deviation views were obtained. Clinical History: Injury Findings: No acute fracture or dislocation is seen. Osseous alignment is anatomic. Joint spaces are p reserved. Soft tissues are unremarkable. Impression: Unremarkable left wrist radiographs. Reviewed, dictated and finalized at location . Impression: Unremarkable left wrist radiographs.
--- OUTSIDE RECORDS SUMMARY | 2025-05-01 11:51 | XMS_ITS | Encounter Summary ---
Author Organization [facility] Address [address] [place] [address] Care Team Providers Care Ict Support Engineer Name Role Phone Paulette Pedraza MD Primary Care Provider [phone] New Referring, Provider Primary Care Provider Un available Paulette Pedraza MD Unavailable [phone] Lee Mendez MD Unavailable [phone] Paulette Pedraza MD Primary Care Provider + [phone] Encounter Details Date Type Department Care Team (Late st Contact Info) Description 05/15/2018 Abstract [facility] Family & Internal Medicine [facility] [address] [place] [address] Paulette Pedraza [place] [id number] [place] [id number] Social History Tobacco Use Types Packs/Day [...] on filedocumented in this encounter Care Teams Ict Support Engineer Relationship Specialty Start Date End Date Paulette Pedraza MD PCP - General 11/28/16 09/01/19 New Referring, Provider PCP - General UNKNOWN PHYSICIAN SPECIALTY 09/02/19 02/09/20 Paulette Pedraza MD PCP - General INTERNAL MEDICINE 02/10/20 01/04/21 Paulette Pedraza MD 09/02/19 01/04/21 Lee Mendez MD INTERNAL MEDICINE 09/03/19 documented as of this encounter
--- OUTSIDE RECORDS SUMMARY | 2025-05-01 11:51 | XMS_ITS | Clinical Summary ---
Author Organization [facility] Address [address] [place] [address] Care Team Providers Care Retrieval Specialist Name Role Phone Angel Guerra MD Primary Care Provider Source Comments [facility],non-owned Affiliates and Associated Physician Practices is amultiple site organization consisting of ambulatory clinics and hospital sitesin [place], [place], [place] and [place]. This disclosure is being madepursuant to the Care Everywhere program and may not contain all information available regarding this patient. Last updated 18.[facility] Allergies Active Allergy Reactions Criticality Noted Date [...] 11 4 Active Blood Glucose Monitoring Suppl (Kickfire Verio Flex System) w/Device KIT USE TO [...] capsule by mouth 3 times daily Active Kickfire Verio test strip TEST BLOOD SUGARS THREE TIMES DAILY 4 Active TRUEplus 5-Bevel Pen [place] 32G X 4 MM [facility] [place] TO INJECT VICTOZA EVERY DAY 4 Active albuterol-iprat ropium (Duo-Neb) 0.5-2.5 (3) MG/3ML nebulizer solution USE 1 VIAL VIA NEBULIZER FOUR TIMES DAILY FOR SHORTNESS OF BREATH Active Lancets (evlyTOUCH DELICA PLUS 33G EXTRA FINE LANCET) USE TO CHECK BLOOD GLUCOSE THREE TIMES DAILY 3 Active Victoza 18 MG/3ML pen ADMINISTER 1.8 MG UNDER THE SKIN EVERY DAY Active traZODone (Desyrel) 100 MG tablet Take 1 (one) tablet by mouth at bedtime Active azelastine (Astelin) 0.1 % nasal spray [place] 2 (two) sprays into each nostril 2 [...] Encounters Date Type Department Care Team Description 04/02/2025 Telephone [facility] - Infectious Disease [address] [place] [phone] Lee Mendez MD Medication Prior Auth Request 04/02/2025 Telephone [facility] - Infectious Disease [address] [place] [phone] Lee Mendez MD Medication Prior Auth Request 03/23/2025 Telephone [facility] - Infectious Disease [address] [place] [phone] Lee Mendez MD Medication Prior Auth Request [...] on file Legal Sex Female 5:13 PM INTERNET ECOMM[employer] SPECIALIST Gender Identity Not on file Sexual Orientation Not on file Last Filed Vital Signs Vital Sign Reading Time Taken Comments Blood Pressure 114/70 08/29/2024 10:52 AM INTERNET [employer] SPECIALIST Pulse 58 08/29/2024 10:52 AM INTERNET [employer] SPECIALIST Temperature 36.3 C (97.4 F) 08/29/2024 10:52 AM INTERNET E[employer] SPECIALIST Respiratory Rate 18 09/26/2023 2:53 PM INTERNET E[employer] SPECIALIST Oxygen Saturation 93% 08/29/2024 10:52 AM INTERNET E[employer] SPECIALIST Inhaled Oxygen Concentration - - Weight 62.3 kg (137 lb 6.4 oz) 08/29/2024 10:52 AM INTERNET ECOMM[employer] SPECIALIST Height 160 cm (5' 3) 08/29/2024 10:52 AM INTERNET ECOMMER[employer] SPECIALIST Body Mass Index 24.34 08/29/2024 10:52 AM INTERNET ECOMMER[employer] SPECIALIST Plan of Treatment Upcoming Encounters Date Type Department Care Team (Late st Contact Info) Description 2025 3:00 PM INTERNET ECOMM[employer] SPECIALIST Office Visit [facility] - Allergy [address] [place] [address], [place] [address] Lee Mendez MD [address] [place] [address] OF ALLERGY/[place] [address] Health Maintenance Due Date Last Done Comments [...] 2022 COVID-19 VACCINE (1 - season) 2024 DEPRESSION SCREENING 10/15/2024 09/26/2023, 06/07/20 22 INFLUENZA VACCINE (#1) 2025 9, 07/25/2018, 08/01/2017, Additional history exists HEPATITIS B [...] to complete this topic Insurance Care Teams Retrieval Specialist Relationship Specialty Start Date End Date Angel Guerra MD [address] [place] [id number] PCP - General 01/11/22
--- OUTSIDE RECORDS SUMMARY | 2025-05-01 11:51 | XMS_ITS | Clinical Summary ---
Author Organization [facility] Address [address] [place] [address] Care Team Providers Care Minute Clerk Name Role Phone Lee Mendez MD Unavailable [phone] Allergies Active Allergy Reactions Criticality Noted [...] :Uncontrolled type 2 diabetes mellitus with hyperglycemia ([facility]) [The details of the medication are not [...] Uncontrolled type 2 diabetes mellitus with hyperglycemia ([facility] HHS/HCC) Inject 20 Units into the skin nightly at bedtime. 1 pen 3 04/06/20 Active Additional Information Patient taking differently:20 Units Subcutaneous Nightly at bedtime,For diabetes., Indications: Diabetes Mellitus, Reported on 06/08/2020 insulin lispro (HUMALOG) 100 UNIT/ML injection (VIAL)Indications :Uncontrolled type 2 diabetes mellitus with hyperglycemia ([facility] HHS/HCC) Inject 4-10 Units into the skin [...] Disease, Reported on 06/08/2020 Continuous Blood Gluc Tax Preparer (DEXCOM G5 WALLPAPER CONSULTANT KIT) DeviceIndications :Uncontrolled type 2 diabetes mellitus with hyperglycemia ([facility] HHS/HCC) 1 Device by Does not apply route 4 (four) times a day. Check glucose qid ac & hs insulin dependent uncontrolled 1 Device 04/07/20 Active Insulin Pen Needle (B-D UF III MINI PEN NEEDLES) 31G X 5 MM MiscIndications:U ncontrolled type 2 diabetes mellitus with hyperglycemia ([facility] HHS/HCC) Use with insulin daily 100 Container [...] 10 mg tabletIndications :Severe persistent asthma, uncomplicated ([facility]) Tapering dose 4 tabs x 4 days, [...] :Uncontrolled type 2 diabetes mellitus with hyperglycemia ([facility] HHS/HCC) TAKE 1 TABLET(500 MG) BY MOUTH EVERY NIGHT 30 tablet 09/15/20 20 Active pioglitazone 30 MG tabletIndications :Uncontrolled type 2 diabetes mellitus with hyperglycemia ([facility]HS/HCC) Take 1 tablet (30 mg total) by mouth daily. Increased dose 90 tablet 10/05/20 20 Active OMEPRAZOLE 20 MG capsuleIndication s:Gastroesophagea l reflux disease without esophagitis TAKE 1 TABLET BY MOUTH DAILY FOR GERD 90 capsule 10/11/20 20 Active pseudoephedrine 30 MG tabletIndications :Asthma, mild intermittent ([facility]),COPD with asthma ([facility] HHS/HCC) TAKE 2 TABLETS BY MOUTH THREE [...] pecto ris 03/09/2017 Severe persistent asthma, uncomplicated ([facility]) 02/07/2017 Nasal polyp 02/07/2017 Hypogammaglobulinemia ([facility]) 02/07/2017 Chronic rhinitis 02/07/2017 Fatigue 12/11/2016 Finger infection 10/10/2016 Overview (09/16/2018): Annotation - [id number]: 10/24/15 Dx, MRI, DM & immune deficiency; R index finger Impingement syndrome of left shoulder 05/28/2015 Gastroesophageal reflux dise ase, esophagitis presence not specified 01/04/2015 Primary osteoarthritis of left knee 01/04/2015 COPD with asthma ([facility]) 08/03/2014 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 Overview (09/16/2018): Annotation - [id number]: per Dr Lowery Diabetes mellitus type 2, uncontrolled 4 Insulin long-term use ([facility]) 04/08/20 14 Anxiety 11/17/2013 Asthma, mild intermittent ([facility]) 11/17/2013 Neck pain 11/17/2013 Overview (09/16/2018): [...] Comments Blood Pressure 122/64 09/28/2020 9:38 AM CALENDER WIND UP TENDER Pulse 85 09/28/2020 9:38 AM CALENDER WIND UP TENDER Temperature 36.9 C (98.4 F) 09/28/2020 9:38 AM CALENDER WIND UP TENDER Respiratory Rate 18 09/28/2020 9:38 AM CALENDER WIND UP TENDER Oxygen Saturation 94% 09/28/2020 9:38 AM CALENDER WIND UP TENDER Inhaled Oxygen Concentration - - Weight 81.6 [...] Comments HEMOGLOBIN, GLYCOSYLATED Routine 09/28/2020 11:20 AM CALENDER WIND UP TENDER Uncontrolled type 2 diabetes mellitus with hyperglycemia LIPID PANEL Routine 04/02/2020 11:05 AM CDT Mixed hyperlipidemia COLONOSCOPY Routine 07/15/2015 12:00 AM CDT from Last 3 Months or Most Recently Relevant to Health Maintenance Results * (ABNORMAL) HEMOGLOBIN, GLYCOSYLATED (09/28/2020 11:20 AM CALENDER WIND UP TENDER) HGB A1C 7.5(H) <5.7 % 09/29/2020 1:40 PM CALENDER WIND UP TENDER [facility] Comment: INCREASED RISK OF DIABETES <5.7% NON-DIABETES 5.7-6.4% INCREASED RISK FOR FUTURE DIABETES > OR = 6.5 CONSISTENT WITH DIABETES STANDARDS OF MEDICAL CARE IN DIABETES-2010 DIABETES CARE, 33(SUPP 1): S1-S61,2009 09/28/2020 11:2 0 AM CALENDER WIND UP TENDER Paulette Pedraza MD LABORATORY Final Result Performing Organization Address City/[facility]/ZIP Co de Phone Number [facility] [address] [place] [address], [place] [phone] * LIPID PANEL (04/02/2020 11:05 AM CDT) CHOLESTEROL 114 <200.0 MG/DL 04/02/2020 2:56 PM CDT [facility] TRIGLYCERIDES 111 <150 MG/DL 04/02/2020 2:56 PM CDT [facility] HDL 50 >40.0 MG/DL 04/02/2020 2:56 PM CDT [facility] LDL (CALCULATED) 42 <100 MG/DL 04/02/20 20 2:56 PM CDT [facility] NON HDL CHOLESTEROL 64 <130 MG/DL 04/02 2:56 PM CDT [facility] CHOL/HDL RATIO 2.3 0.0 - 4.5 04/02/2020 2:56 PM CDT [facility] VLDL CALCULATION 22 5 - 55 MG/DL 04/02/2020 2:56 PM CDT [facility] LIPID INTERPRETATION 04/02/2020 2:56 PM CDT [facility] Comment: [...] CDT Paulette Pedraza MD LABORATORY Final Result [facility] () [facility] [address] [place] [address], * Colonoscopy (07/15/2015 12:00 AM CDT) 07/15/2015 [...] 11:10 AM 10/31/2019 12:32 AM Care Teams Minute Clerk Relationship Specialty Start Date End Date Lee Mendez MD INTERNAL MEDICINE 09/03/19
--- OUTSIDE RECORDS SUMMARY | 2025-05-01 11:51 | XMS_ITS | Encounter Summary ---
Author Organization [facility] Address [address] [place] [address] Care Team Providers Care Racing Board Marker Name Role Phone Paulette Pedraza MD Primary Care Provider [phone] New Referring, Provider Primary Care Provider Un available Paulette Pedraza MD Unavailable [phone] Lee Mendez MD Unavailable [phone] Paulette Pedraza MD Primary Care Provider + [phone] Encounter Details Date Type Department Care Team (Latest Contact Info) Description 06/27/2018 Abstract [facility] [place] [address] [place] [address] Social History Tobacco Use Types [...] on filedocumented in this encounter Care Teams Racing Board Marker Relationship Specialty Start Date End Date Paulette Pedraza MD PCP - General 11/28/16 09/01/19 New Referring, Provider PCP - General UNKNOWN PHYSICIAN SPECIALTY 09/02/19 02/09/20 Paulette Pedraza MD PCP - General INTERNAL MEDICINE 02/10/20 01/04/21 Paulette Pedraza MD 09/02/19 01/04/21 Lee Mendez MD INTERNAL MEDICINE 09/03/19 documented as of this encounter
--- OUTSIDE RECORDS SUMMARY | 2025-05-01 11:52 | XMS_ITS | Encounter Summary ---
Author Organization [facility] Address [address] [facility] [place] [address] Care Team Providers Care Auto Damage Trainee Name Role Phone Paulette Pedraza MD Primary Care Provider + [phone] Angel Guerra MD Primary Care Provider + [phone] Encounter Details Date Type Department Care Team (Late st Contact Info) Description 07/27/2021 Telephone [facility] [address] [place] [address] Lee Mendez MD [address] OF ALLERGY/[place] [address] Social History Tobacco Use Types Packs/Day Years Used Date Smoking Tobacco: Every Day Cigarettes Smokeless Tobacco: Current Alcohol Use Standard Drinks/Week Comments No 0 (1 standard drink = 0.6 oz pur e alcohol) PHQ-2 Answer Date Recorded PHQ2 TOTAL SCORE 0 07/27/2021 Comments Unknown Sex and Gender Information Value Date Recorded Sex Assigned at Not on file Legal Sex Female 5:13 PM SLUDGE FILTRATION ATTENDANT Gender Identity Not on file Sexual Orientation Not on file documented as of this encounter Patient Instructions * Patient Instructions* Mervat Good - 07/27/2021 12:01 PM CDT Please call patient today for her telephone appt. At [phone]. Thank you documented in this encounter Plan of Treatment Upcoming Encounters Date Type Department Care Team (Late st Contact Info) Description 2025 3:00 PM SLUDGE FILTRATION ATTENDANT Office Visit [facility] - All[facility] [address] [place] [address], [place] [address] Lee Mendez MD [address] [place] [address] DIV OF ALLERGY/[place] [address] documented as of this encounter Visit Diagnoses Not on filedocumented in this encounter Care Teams Auto Damage Trainee Relationship Specialty Start Date End Date Paulette Pedraza MD PCP - General 12/26/16 01/10/22 Angel Guerra MD [address] [place] [address] PCP - General 01/11/22 documented as of this encounter
--- OUTSIDE RECORDS SUMMARY | 2025-05-01 11:52 | XMS_ITS | Encounter Summary ---
Author Organization [facility] Address [address] [place] [place] [address] Care Team Providers Care Agricultural Service Technician Name Role Phone Paulette Pedraza MD Primary Care Provider + [phone] Angel Guerra MD Primary Care Provider + [phone] Encounter Details Date Type Department Care Team (Late st Contact Info) Description 08/09/[address] [facility] [address] [place] [address] Lee Mendez MD [facility] OF ALLERGY/[place] [address] Social History Tobacco Use Types Packs/Day Years Used Date Smoking Tobacco: Every Day Cigarettes Smokeless Tobacco: Current Alcohol Use Standard Drinks/Week Comments No 0 (1 standard drink = 0.6 oz pur e alcohol) PHQ-2 Answer Date Recorded PHQ2 TOTAL SCORE 0 07/27/2021 Comments Unknown Sex and Gender Information Value Date Recorded Sex Assigned at Not on file Legal Sex Female 5:13 PM ADHESION TESTER Gender Identity Not on file Sexual Orientation Not on file documented as of this encounter Patient Instructions * Patient Instructions* Lore Amezquita - 08/09/2021 1:14 PM CDT Patient called and would like to talk to Dr. Mendez's nurse in regards to her medication needing to be certified. Contact number is [phone]. documented in this encounter Plan of Treatment Upcoming Encounters Date Type Department Care Team (Late st Contact Info) Description 2025 3:00 PM ADHESION TESTER Office Visit [facility] - [facility] [address] [place] [address], [place] [address] Lee Mendez MD [address] [place] [address] DIV OF ALLERGY/[place] [address] documented as of this encounter Visit Diagnoses Not on filedocumented in this encounter Care Teams Agricultural Service Technician Relationship Specialty Start Date End Date Paulette Pedraza MD PCP - General 12/26/16 01/10/22 Angel Guerra MD [address] [facility] [address] [place] [address] PCP - General 01/11/22 documented as of this encounter
--- OUTSIDE RECORDS SUMMARY | 2025-05-01 11:52 | XMS_ITS | Data Portability ---
Author Organization [place] - [facility] OFFICE Address [address] [place] [address] Care Team Providers Care Oil Heater Operator Name Role Phone BROOKLYN FIGUEROA Primary Care Provider Assessment No assessment recorded. Plan of Treatment Reminders Order Date Submit Date Provider Last Modified By Organization Details Last Modified Time Details Appointments None recorded. Lab None recorded. Referral None recorded. Procedures None recorded. Surgeries None recorded. Imaging electrocar diogram 2017 018 [email or web address] Not available 9 17:12:22 Medication Orders furosemide 40 mg tablet 2017 018 [email or web address] [facility]67290, [address], [place], [id number], 0 12:38:49 potassium chloride ER 10 mEq tablet,ext ended release 2017 018 INTERFACE [facility] #23455, [address] [place] [address], [place], [id number], 8 17:58:14 nitroglyce rin 0.4 mg sublingual tablet 2017 018 [email or web address] Not available 8 10:50:12 metoprolol tartrate 50 mg tablet 2017 018 INTERFACE [facility] #70317, [address], [place], [id number], 8 17:57:45 atorvastat in 40 mg tablet 2017 018 INTERFACE [facility] #[id number], [address] [facility], [place], [place], [id number], 8 17:55:31 fenofibrat e 160 mg tablet 2017 INTERFACE [facility] #16928, [address] [facility], [place], [place], [id number], 8 17:57:46 Patient TargetsNo targets recorded. Patient Instructions Encounter Date Encounter Id Patient Instructions Last Modified By Organization Details Last Modified Time 06/11/2018 [id number] sleep apnea: car e instructions [email or web address] Not available 06/11/2018 17:55:27 learning about low-fat eating [email or web address] Not available 06/11/2018 17:55:27 Scribed by Ronel Su [employer] lsenci Not available 06/11/2018 17:59:45 05/04/2020 [id number] sleep apnea: car e instructions [email or web address] Not available 05/04/2020 13:28:27 learning about low-fat eating [email or web address] Not available 05/04/2020 13:28:27 05/04/2020 Advise d to go to the ER from the office. Pt. verbalized understanding and states she will go to [facility] from the office. Pt took her own transportation to the ER. Weight loss, Exercise advised Education on smoking. Reports a decrease in use to 4-5 per day from 1ppd. Low cholesterol diet advised Low sodium diet advised. [email or web address] Not available 05/04/2020 13:26:21 Scribed by Nicci Bernard, MSN, HARNESS TIER, [employer] [email or web address] Not available 05/04/2020 12:48:14 04/04/2021 [id number] sleep apnea: car e instructions [email or web address] Not available 04/04/2021 21:37:57 learning about low-fat eating [email or web address] Not available 04/04/2021 21:37:57 Exercise advised Low cholesterol diet advised Low sodium diet advised [email or web address] Not available 04/04/2021 21:37:07 Scribed by Bhavik Galloway [employer] [email or web address] Not available 04/04/2021 21:37:20 10/18/2021 [id number] sleep apnea: car e instructions [email or web address] Not available 10/18/2021 16:10:56 learning about low-fat eating [email or web address] Not available 10/18/2021 16:10:56 Exercise advised Low cholesterol diet advised Low sodium diet advised. [email or web address] Not available 10/18/2021 16:11:04 12/21/2022 [id number] Exercise advised Low cholesterol diet advised Low [...] Name and Address Organization Details Recorded Time Palpitatio ns 67003322 Active 2015 [place] [facility] 6 01:56:30 Benign hypertensi on 08745810 Active 2015 [place] [facility] 4 06:54:58 Disorder of coronary artery 024992704 Active 2015 [place] [facility] 6 01:57:10 Diabetes mellitus 66837774 Active 2015 Insulin dependent Cindy Gutier[place]carissa [place] - [facility] 4 06:55:06 Moderate chronic obstructiv e pulmonary disease 267141317 Active 2015 [place] [facility] 6 01:58:18 Asthma 820563613 Active 2015 C[place] [facility] 4 06:55:01 Bronchitis 14747727 Active 2015 [place] [facility] 6 01:58:37 Pneumonia 334605505 Active 2015 Har[place] [facility] 6 01:58:49 Obstructiv e sleep apnea syndrome 36772422 Active 2015 [place] [facility] 4 06:55:17 Hypothyroi dism 37008792 Active 2015 [place] [facility] 4 06:55:12 Cerebrovas cular accident 855781209 Active 2015 [place] [facility] 6 01:59:26 History of depression 075808282 Active 2015 [place] [facility] 6 01:59:37 Gastroesop hageal reflux disease 556897982 Active 2015 [place] [facility] 6 01:59:48 Degenerati on of interverte bral disc 41700707 Active 2015 [place] [facility] 6 02:00:46 Anxiety 51405141 Active 2015 [place] [facility] 6 02:00:57 Hyperlipid emia 62105767 Active 2016 [place] [facility] 4 06:55:10 Edema of lower extremity 380737548 Active 2016 [place] [facility] 7 15:09:10 Problem Notes None recorded. Medical Equipment None Reported. Allergies Allergen ID Allergen Name Allergen Category Reaction Reaction Severity Criticality Documentation Date Start Date Code Code System Note Provider Name and Address Organization Details Recorded Time 851 Substance with sulfonami de structure and antibacte rial mechanism of action (substanc e) medicatio n Not available Not available Not available 02/10/2016 32644 8003 SNOMED Statu s- Activ e Type- Drug Intol eranc e Xu [place] [facility], [place] - [facility] 6 [...] 12/21/22 Not Available Not Available Not Available omeprazole [...] with needle 1 mL 31 gauge x 5/16 active Not Available Not Available Not Available [...] Ultra-Fine Mini Pen Needle 31 gauge x 3/16 active Not Available Not Available Not Available [...] blood by Pulse oximetry Heart rate Systolic And Diastolic Provider Name and Address Organization Details Last Updated DateTime 2 21569.5 1 g 95 % 95 % 78 /min 142/80 mm[Hg] [facility] 2 15:53:53 Date Recorded Body height Body mass index (BMI) Body weight Body weight Oxygen saturation Oxygen saturation in Arterial blood by Pulse oximetry Heart rate Systolic And Diastolic Provider Name and Address Organization Details Last Updated DateTime 3 160.02 cm 27.9 kg/m2 54255.5 2 g 38369.8 6 g 90 % 90 % 62 /min 122/62 mm[Hg] ONEIL ARMSTRONG [facility] 3 17:29:12 Date Recorded Body weight Heart rate Respiratory rate Oxygen saturation Oxygen saturation in Arterial blood by Pulse oximetry Systolic And Diastolic Provider Name and Address Organization Details Last Updated DateTime 1 98885.5 9 g 79 /min 16 /min 97 % 97 % 104/62 mm[Hg] Christal Galloway [facility] 1 16:08:54 Date Recorded Body weight Heart rate Oxygen saturation Oxygen saturation in Arterial blood by Pulse oximetry Systolic And Diastolic Provider Name and Address Organization Details Last Updated DateTime 0 38416.1 4 g 87 /min 88 % 88 % 128/75 mm[Hg] Fuentes Betancourt [facility] 0 12:31:53 Date Recorded Body height Body mass index (BMI) Body weight Provider Name and Address Organization Details Last Updated DateTime 06/11/2018 160.02 cm 32.1 kg/m2 15271.22 g Mariluz Purcell [facility] 06/11/2018 17:26:23 Social History None [...] Code Diagnosis Note [id number] Fuentes Bell MD [place] [facility] [address] [place] [address] 02/18/2016 12:00:26 02/18/2016 13:17:22 Hyperlipidemia 25076177 E78.5 Needs to keep LDL less than 70, and HDL more than 40 Disorder o f coronary artery 718854910 I77.9 Diabetes mellitus 842772 09 E11.9 Obstructiv e sleep apnea syndrome 99237677 G47.33 Atypical chest pain 1025 27537 R07.89 Treadmill Myoview Stress test, has high [place] Risk score. Has Known CAD, or CAD risk equivalent . To look for any ischemia. Carotid bruit 404183086 R09.89 8895 Fuentes Bell MD [place] [facility] [address] [place] [address] 11/21/2016 09:40:06 11/22/2016 10:41:10 Benign hypertension 37649207 I10 Now well controlled Disorder o f coronary artery 949765022 I77.9 stable no new angina Palpitations 46729505 R0 0.2 Atypical chest pain 1025 90428 R07.89 Hyperlipidemia 74052733 E78.5 Needs to keep LDL less than 70, and HDL more than 40 Diabetes mellitus 317562 09 E11.9 with fair control Obstructiv e sleep apnea syndrome 26591068 G47.33 Carotid bruit 158659800 R09.89 Edema of l ower extremity 202343785 R60.0 Dyslipidemia 634201521 E 78.5 21718 Fuentes Bell MD [place] OFF[facility] [place] [address] 02/06/2017 14:39:27 02/07/2017 12:40:08 Benign hypertension 06059748 I10 Now well controlled Disorder o f coronary artery 593064180 I77.9 stable angina Dobutamine Myoview stress test, pt can not walk. Has known coronary artery disease, with atypical symptoms now Palpitations 51858776 R0 0.2 Atypical chest pain 1025 03715 R07.89 Hyperlipidemia 43998587 E78.5 Needs to keep LDL less than 70, and HDL more than 40 Diabetes mellitus 662757 09 E11.9 with fair control Obstructiv e sleep apnea syndrome 52813397 G47.33 Carotid bruit 576429335 R09.89 Edema of l ower extremity 637718878 R60.0 Dyslipidemia 087364892 E 78.5 Needs to keep LDL less than 70, and HDL more than 40Will [place] [address] Fuentes Bell MD [place] OFF[facility] [address] [place] [address] 05/21/2018 15:57:23 05/21/2018 17:01:21 Benign hypertension 38974465 I10 Now well controlled Disorder o f coronary artery 502947768 I77.9 stable angina The patient will be scheduled for left heart catheteriz ation, with coronary angiogram, and possible PTCA/Stent . The procedure was discussed with the patient, and risks, benefits, and alternativ e options were explained. The patient was given informatio n about heart catheteriz ation and interventi onal procedures . The patient agrees to proceed. Palpitations 57166150 R0 0.2 Atypical chest pain 1025 38837 R07.89 Hyperlipidemia 66530344 E78.5 Needs to keep LDL less than 70, and HDL more than 40 Diabetes mellitus 172009 09 E11.9 with fair control Obstructiv e sleep apnea syndrome 41819384 G47.33 Carotid bruit 588106585 R09.89 Edema of l ower extremity 475990025 R60.0 On Lasix Dyslipidemia 270984566 E 78.5 Needs to keep LDL less than 70, and HDL more than 40Will [place] [id number] Fuentes Bell MD [place] OFF[facility] [address] [place] [address] 06/11/2018 16:37:18 10/21/2018 17:12:22 Benign hypertension 55662817 I10 Now well controlled Disorder o f coronary artery 124595793 I77.9 stable angina Had Cardiac cath on 05/27/18 that mild to moderate coronary artery disease. Maximal medical treatment. Atypical chest pain 1025 04015 R07.89 Occasional , but feels that it is related to asthma. Hyperlipidemia 98990885 E78.5 Needs to keep LDL less than 70, and HDL more than 40. 06/11/18 Discontinu ed Simvastati n 20 mg and started Atorvastat in 40 mg.Continu e Fenofibrat e. Diabetes mellitus 972750 09 E11.9 with fair control Obstructiv e sleep apnea syndrome 95896210 G47.33 Wears CPAP machine. Edema of l ower extremity 783254116 R60.0 On Lasix Benign ess ential hypertension 1922564 I10 Well controlled . [address] Fuentes Bell MD [place] OFF[facility] [place] [address] 05/04/2020 12:06:21 05/04/2020 13:28:36 Disorder of coronary artery 658484939 I77.9 05/04/2020 stable angina Had Cardiac cath on 05/27/18 that mild to moderate coronary artery disease. Maximal medical treatment. Atypical chest pain 1025 84388 R07.89 05/04/2020S OB, Wheezing, coughing. Advised to go to ER.Occasio nal, but feels that it is related to asthma. Hyperlipidemia 01372700 E78.5 05/04/2020L ast LDL on 12/05/2019 71, Continue Atorvastat inTri 192Continu e Fenofibrat e.Needs to keep LDL less than 70, and HDL more than 40. 06/11/18 Discontinu ed Simvastati n 20 mg and started Atorvastat in 40 mg.Continu e Fenofibrat e. Diabetes mellitus 620434 09 E11.9 05/04/2020L ast A1C 8.9 manage per PCP Obstructiv e sleep apnea syndrome 44012299 G47.33 05/04/2020W ears CPAP machine. Edema of l ower extremity 618852947 R60.0 05/04/2020E maria de jesus noted to the lower extremitie s. Is not taking her lasix Benign ess ential hypertension 4705447 I10 05/04/2020W ell controlled . 21266 Fuentes Bell MD [place] Office [address] [place] [address] 04/04/2021 16:02:07 04/04/2021 16:58:51 Atypical chest pain 503948445 R07.89 Dobutamine Stress test, has high [place] Risk score. Has Known CAD, or CAD risk equivalent . To look for any ischemia. Hyperlipidemia 80833260 E78.5 Needs to keep LDL less than 70, and HDL more than 40. 020 LDL 42Continue Lipitor 40 mg Diabetes mellitus 402554 E11.9 Treatment and evaluation by primary care doctor Discussed importance of adequate glycemic control to minimize cardiovasc ular disease progressio n, A1C goal of < 7% for type 2 DM. Obstructiv e sleep apnea syndrome 82845181 G47.33 Compliant with nightly CPAP use Edema of l ower extremity 859270079 R60.0 Stable on Lasix Benign ess ential hypertension 0656971 I10 Well controlled on current regimen Dizziness 761869373 R42 Obtain echo to evaluate for structural /[place] [address] Fuentes Bell MD [place] OFF[facility] [address] [place] [address] 10/18/2021 15:28:55 10/18/2021 16:18:34 Atypical chest pain 437825392 R07.89 Lexiscan Stress test, has high [place] Risk score. Unable to walk a treadmill due to exercise induced chest pain and increased fall risk due to dizziness. Has Known CAD, or CAD risk equivalent . To look for any ischemia. Hyperlipidemia 78153944 E78.5 Needs to keep LDL less than 70, and HDL more than 40.2 020 LDL 42Continue Lipitor 40 mg Diabetes mellitus 825606 E11.9 Treatment and evaluation by primary care doctor Discussed importance of adequate glycemic control to minimize cardiovasc ular disease progressio n, A1C goal of < 7% for type 2 DM. Obstructiv e sleep apnea syndrome 93448243 G47.33 Compliant with nightly CPAP use Edema of l ower extremity 649514940 R60.0 Stable on LasixLeg elevationO btain echo to evaluate for structural /functiona l disease. Benign ess ential hypertension 6221615 I10 Well controlled on current regimen Dizziness 151548288 R42 Obtain echo to evaluate for structural /[place] [address] Fuentes Bell MD [place] [facility] [address] [place] [address] 12/21/2022 16:52:03 12/21/2022 17:58:03 Atypical chest pain 827605417 R07.89 Hyperlipidemia 40236061 E78.5 Needs to keep LDL less than 70, and HDL more than 40. 020 LDL 42Continue Lipitor 40 mg Diabetes mellitus 611144 09 E11.9 Treatment and evaluation by primary care doctor Discussed importance of adequate glycemic control to minimize cardiovasc ular disease progressio n, A1C goal of < 7% for type 2 DM. Obstructiv e sleep apnea syndrome 90557869 G47.33 Compliant with nightly CPAP use Edema of l ower extremity 800879088 R60.0 Stable on LasixLeg elevationO btain echo to evaluate for structural /functiona l disease. Benign ess ential hypertension 0439380 I10 Well controlled on current regimen Dizziness 192522100 R42 24 Hour Holter, to evaluate arrhythmia [...] Truong Member ID Guarantor Name 11/13/2024 1 [facility] - DOS ON OR AFTER 21 (MEDICAID REPLACEMENT - HMO) Alma Anderson [id number] Alma Anderson 06/07/2021 1 [facility] - DOS PRIOR TO 2021 (MEDICAID REPLACEMENT - HMO) Alma Anderson [id number] Alma Anderson Notes Date Note Type Note [...] is normal. EF=>55%. Fuentes Bell MD [address] [place], [address], [facility] 06/11/2018 18:28:12 05/04/2020 [...] is normal. EF=>55%. Fuentes Bell MD [address] [place], [address], [facility] 05/04/2020 13:28:33 04/04/2021 text/html [...] : Right atrial enlargement, probably old anterior ID EKG 05/21/18 : Left posterior hemiblock. Possibly [...] ischemia nuclear portion is pending. [place] [facility] 04/11/2021 14:34:35 10/18/2021 text/html 10/18/20CC : Car diac follow up, chest [id number] white woman with a PMH of CAD, [...] : Right atrial enlargement, probably old anterior ID EKG 05/21/18 : Left posterior hemiblock. Possibly [...] for ischemia nuclear portion is pending. Alayna Olivo [facility] 10/29/2021 19:15:52 12/21/2022 text/html 12/21/22CC : Car diac follow up, [id number] white woman with a PMH of CAD, [...] : Right atrial enlargement, probably old anterior ID EKG 05/21/18 : Left posterior hemiblock. Possibly [...] nuclear portion is pending. Fuentes Bell MD [address] [place], [address], [place] [facility] 12/21/2022 17:53:36 OBGyn Episode No OBEpisode recorded.
--- OUTSIDE RECORDS SUMMARY | 2025-05-01 11:52 | XMS_ITS | Encounter Summary ---
Author Organization [facility] Address [address] [facility] [place] [address] Care Team Providers Care Electrical Logging Operator Name Role Phone Angel Guerra MD Primary Care Provider Reason for Visit * Reason Onset Date Comments Results 10/01/2023 Encounter Details Date Type Department Care Team (Late st Contact Info) Description 10/01/2023 Telephone [facility] [address] [facility], [place] [address] Trisha Bray MD [address] [place] [address] Results Social History Tobacco Use Types Packs/Day [...] on file Legal Sex Female 5:13 PM COPRA PROCESSOR Gender Identity Not on file Sexual Orientation [...] mg/dL 302 272 R, CM Resulting Agency [facility] Parameters Male Ref. Range Female Ref. Range 09/26/23 WBC [id number] 2600-07259 8200 Lymphocytes % 21-48 18-54 19 Lymphocytes 3930-5802 5260-3875 1558 CD3+ % 75-80 76-78 65 CD3 2469-8076 2097-9741 1013 CD3+CD4+ % (CD4 T cells) 34-61 26-62 38 CD3+CD4+ 564-2667 757-5325 592 CD3+CD8+ % (CD8 T cells) 16-38 14-44 27 CD3+CD8+ 314-145 014-9870 421 CD4:CD8 Ratio 0.97-3.71 0.6-4.4 1.41 CD19 [...] cell maturation subsets in adults of [facility]. Immunobiology, 219(7), 487-496. Matheus Randle, Matheus Ceja, [...] Trisha Bray MD Allergy & Immunology Fellow A PROCESSOR documented in this encounter Plan of Treatment Upcoming Encounters Date Type Department Care Team (Late st Contact Info) Description 2025 3:00 PM COPRA PROCESSOR Office Visit [facility] [address] [place] [address], [place] [address] Lee Mendez MD [address] [place] [address] DIV OF ALLERGY/[place] [address] documented as of this encounter Visit Diagnoses Not on filedocumented in this encounter Care Teams Electrical Logging Operator Relationship Specialty Start Date End Date Angel Guerra MD [address] [place] [address] PCP - General 01/11/22 documented as of this encounter
--- OUTSIDE RECORDS SUMMARY | 2025-05-01 11:52 | XMS_ITS | Encounter Summary ---
Author Organization [facility] Address [address] [facility] [place] [address] Care Team Providers Care Regulatory Affairs Analyst Name Role Phone Paulette Pedraza MD Primary Care Provider + [phone] Angel Guerra MD Primary Care Provider + [phone] Encounter Details Date Type Department Care Team (Late st Contact Info) Description 08/05/2021 Telephone [facility] [address] [place] [address] Lee Mendez MD [facility] [address] OF ALLERGY/[place] [address] Social History Tobacco Use Types Packs/Day Years Used Date Smoking Tobacco: Every Day Cigarettes Smokeless Tobacco: Current Alcohol Use Standard Drinks/Week Comments No 0 (1 standard drink = 0.6 oz pur e alcohol) PHQ-2 Answer Date Recorded PHQ2 TOTAL SCORE 0 07/27/2021 Comments Unknown Sex and Gender Information Value Date Recorded Sex Assigned at Not on file Legal Sex Female 5:13 PM INSPECTOR PURCHASED PARTS Gender Identity Not on file Sexual Orientation Not on file documented as of this encounter Patient Instructions * Patient Instructions* Jessica Armijo - 08/05/2021 11:44 AM CDT Pt is calling to get her Gamunex re certified by Dr Mendez documented in this encounter Plan of Treatment Upcoming Encounters Date Type Department Care Team (Late st Contact Info) Description 2025 3:00 PM INSPECTOR PURCHASED PARTS Office Visit [facility] [address] [place] [address], [place] [address] Lee Mendez MD [address] [place] [address] [address] DIV OF ALLERGY/[place] [address] documented as of this encounter Visit Diagnoses Not on filedocumented in this encounter Care Teams Regulatory Affairs Analyst Relationship Specialty Start Date End Date Paulette Pedraza MD PCP - General 12/26/16 01/10/22 Angel Guerra MD [address] [place] [address] PCP - General 01/11/22 documented as of this encounter
--- OUTSIDE RECORDS SUMMARY | 2025-05-01 11:52 | XMS_ITS | Encounter Summary ---
Author Organization [facility] Address [address] [facility] [place] [address] Care Team Providers Care Port Purser Name Role Phone Angel Guerra MD Primary Care Provider Reason for Visit * Reason Onset Date Comments Medication Problem 10/04/2023 Encounter Details Date Type Department Care Team (Late st Contact Info) Description 10/04/2023 Telephone [facility] [address] [facility], [place] [address] Trisha Bray MD [address] [place] [address] Medication Problem Social History Tobacco Use Types [...] on file Legal Sex Female 5:13 PM NEEDLE LOOM TENDER Gender Identity Not on file Sexual Orientation Not on file documented as of this encounter Miscellaneous Notes * Telephone Encounter - Trisha Bray MD - 10/04/2023 2:44 PM CST Wrote medical appeal letter to approve gamunex for hypogammaglobulinemia Trisha Bray MD Allergy & Immunology Fellow LE LOOM TENDER documented in this encounter Plan of Treatment Upcoming Encounters Date Type Department Care Team (Late st Contact Info) Description 2025 3:00 PM NEEDLE LOOM TENDER Office Visit [facility] [address] [place] [address], [place] [address] Lee Mendez MD [address] [place] [address] DIV OF ALLERGY/[place] [address] documented as of this encounter Visit Diagnoses Not on filedocumented in this encounter Care Teams Port Purser Relationship Specialty Start Date End Date Angel Guerra MD [address] [place] [address] PCP - General 01/11/22 documented as of this encounter
--- OUTSIDE RECORDS SUMMARY | 2025-05-01 11:52 | XMS_ITS | Encounter Summary ---
Author Organization [facility] Address [address] [place] [address] Care Team Providers Care Butcher Apprentice Name Role Phone Paulette Pedraza MD Primary Care Provider + [phone] Angel Guerra MD Primary Care Provider + [phone] Reason for Visit * Reason Onset Date Comments Results 01/15/2019 Encounter Details Date Type Department Care Team (Late st Contact Info) Description 01/15/2019 Telephone [facility] [address] [place] [address] Js Dubon DO [address] [place] [address] Results Social History Tobacco Use Types Packs/Day Years Used Date Smoking Tobacco: Every Day Cigarettes Smokeless Tobacco: Current Alcohol Use Standard Drinks/Week Comments No 0 (1 standard drink = 0.6 oz pur e alcohol) Comments Unknown Sex and Gender Information Value Date Recorded Sex Assigned at Not on file Legal Sex Female 5:13 PM BSA/AML COMPLIANCE OFFICER Gender Identity Not on file Sexual Orientation Not on file documented as of this encounter Miscellaneous Notes * Telephone Encounter - Js Dubon DO - 01/15/2019 5:07 PM CDT Received lab results from [facility]. 01/06/2019 IgG 642, Creatine 0.62, [...] st Contact Info) Description 2025 3:00 PM BSA/AML COMPLIANCE OFFICER Office Visit [facility] - Allergy [address] [place] [address], [place] [address] Lee Mendez MD [address] [place] [address] OF ALLERGY/[place] [address] documented as of this encounter Visit Diagnoses Diagnosis Hypogammaglobulinemia (HCC)- Primary Hypogammaglobulinaemia, unspecified documented in this encounter Care Teams Butcher Apprentice Relationship Specialty Start Date End Date Paulette Pedraza MD PCP - General 12/26/16 01/10/22 Angel Guerra MD [address] [place] [address] PCP - General 01/11/22 documented as of this encounter
--- OUTSIDE RECORDS SUMMARY | 2025-05-01 11:52 | XMS_ITS | Encounter Summary ---
Author Organization [facility] Address [address] [place] [address] Care Team Providers Care Material Assembler Name Role Phone Paulette Pedraza MD Primary Care Provider + [phone] Angel Guerra MD Primary Care Provider + [phone] Reason for Visit * Reason Onset Date Comments Refill Request 07/25/2018 Encounter Details Date Type Department Care Team (Late st Contact Info) Description 07/25/2018 Telephone [facility] [address] [place] [address] Js Khan DO [address] [place] [address] Refill Request Social History Tobacco Use Types Packs/Day Years Used Date Smoking Tobacco: Every Day Cigarettes Smokeless Tobacco: Current Alcohol Use Standard Drinks/Week Comments No 0 (1 standard drink = 0.6 oz pur e alcohol) Comments Unknown Sex and Gender Information Value Date Recorded Sex Assigned at Not on file Legal Sex Female 5:13 PM AMUSEMENT RIDE INSPECTOR Gender Identity Not on file Sexual Orientation Not on file documented as of this encounter Miscellaneous Notes * Telephone Encounter - Js Khan DO - 07/25/2018 11:11 AM CDT Received home certification request from [facility]. documented in this encounter Plan of Treatment Upcoming Encounters Date Type Department Care Team (Late st Contact Info) Description 2025 3:00 PM AMUSEMENT RIDE INSPECTOR Office Visit [facility] [address] [place] [address], [place] [address] Lee Mendez MD [address] [place] [address] 2L DIV OF ALLERGY/[place] [address] documented as of this encounter Visit Diagnoses Not on filedocumented in this encounter Care Teams Material Assembler Relationship Specialty Start Date End Date Paulette Pedraza MD PCP - General 12/26/16 01/10/22 Angel Guerra MD [address] [place] [address] PCP - General 01/11/22 documented as of this encounter
--- OUTSIDE RECORDS SUMMARY | 2025-05-01 11:52 | XMS_ITS | Encounter Summary ---
Author Organization [facility] Address [address] [facility] [place] [address] Care Team Providers Care Custom Bookbinder Name Role Phone Angel Guerra MD Primary Care Provider Reason for Visit * Reason Onset Date Comments Refill Request 09/26/2023 Encounter Details Date Type Department Care Team (Late st Contact Info) Description 09/26/2023 Telephone [facility] [address] [facility], [place] [address] Trisha Bray MD [address] [place], [place] [id number] Refill Request Social History Tobacco Use Types [...] on file Legal Sex Female 5:13 PM OUTREACH ASSISTANT Gender Identity Not on file Sexual [...] hopeless Not at all 09/26/2023 2:48 PM OUTREACH ASSISTANT Nelida Carrasco RN Patient Health Questionnaire -2 Score 0 09/26/2023 2:48 PM OUTREACH ASSISTANT Nelida Carrasco RN documented as of this encounter Miscellaneous Notes * Telephone Encounter - Trisha Bray MD - 09/26/2023 4:40 PM CST Spoke with [facility]. Gave verbal order to renew gamunex C 50g [id number], and add 500cc NS bolus Trisha Bray MD Allergy & Immunology Fellow EACH ASSISTANT documented in this encounter Plan of Treatment Upcoming Encounters Date Type Department Care Team (Late st Contact Info) Description 2025 3:00 PM OUTREACH ASSISTANT Office Visit [facility] [address] [place] [address], [place] [address] Lee Mendez MD [address] [place] [address] 2L DIV OF ALLERGY/[place] [address] documented as of this encounter Visit Diagnoses Not on filedocumented in this encounter Care Teams Custom Bookbinder Relationship Specialty Start Date End Date Angel Guerra MD [address] [place] [address] PCP - General 01/11/22 documented as of this encounter
--- OUTSIDE RECORDS SUMMARY | 2025-05-01 11:52 | XMS_ITS | Encounter Summary ---
Author Organization [facility] Address [address] [place] [address] Care Team Providers Care Scaffolding Helper Name Role Phone Paulette Pedraza MD Primary Care Provider + [phone] Angel Guerra MD Primary Care Provider + [phone] Encounter Details Date Type Department Care Team (Late st Contact Info) Description 06/15/2020 Telephone [facility] [address] [place] [address] Lee Mendez MD [address] OF ALLERGY/[place] [address] Social History Tobacco Use Types Packs/Day Years Used Date Smoking Tobacco: Every Day Cigarettes Smokeless Tobacco: Current Alcohol Use Standard Drinks/Week Comments No 0 (1 standard drink = 0.6 oz pur e alcohol) Comments Unknown Sex and Gender Information Value Date Recorded Sex Assigned at Not on file Legal Sex Female 5:13 PM ENVIRONMENTAL DEPARTMENT MANAGER Gender Identity Not on file Sexual [...] Please call. Thanks. Patiient Call Back number: [phone] documented in this encounter Plan of Treatment Upcoming Encounters Date Type Department Care Team (Late st Contact Info) Description 2025 3:00 PM ENVIRONMENTAL DEPARTMENT MANAGER Office Visit [facility] [address] [place] [address], [place] [address] Lee Mendez MD [address] [place] [address] DIV OF ALLERGY/[place] [address] documented as of this encounter Visit Diagnoses Not on filedocumented in this encounter Care Teams Scaffolding Helper Relationship Specialty Start Date End Date Paulette Pedraza MD PCP - General 12/26/16 01/10/22 Angel Guerra MD [address] [place] [address] PCP - General 01/11/22 documented as of this encounter
--- NOTE | 2025-05-01 11:59 | ED_ITS ---
HPI - Extremity Injury (Upper) General Chief Complaint: Extremity Injury, Lower Stated Complaint: hand/wrist injury Time Seen by Provider: 05/01/25 11:59 Source: patient, RN notes reviewed and old records reviewed Mode of arrival: ambulatory Limitations: no limitations History of Present Illness HPI narrative: 64-year-old female with a significant past history of COPD blood pressure diabetes, thyroid disease presents with left wrist pain, volar aspect. Patient states that on Sunday she went to stop a box from falling, moved wrong and now has bruising to the right left volar wrist. Swelling is noted. Tender to palpation Decreased range of motion secondary to pain. Positive radial pulse, capillary refill under 2 seconds. Has taken ibuprofen Does have Percocet 10 mg prescribed Onset (ago): day(s) (4) Treatments prior to arrival: NSAIDS Related Data Home Medications ?Medication ?Instructions ?Recorded ?Confirmed ?Last Taken ?Type atorvastatin 40 mg tablet 40 mg PO HS 09/18/19 03/28/25 03/26/25 21:00 History famotidine 40 mg tablet 40 mg PO DAILY 09/18/19 03/28/25 03/26/25 08:00 History fenofibrate 160 mg tablet 160 mg PO HS 09/18/19 03/28/25 03/26/25 21:00 History levothyroxine 50 mcg tablet 50 mcg PO DAILY 09/18/19 03/28/25 03/27/25 08:00 History metoprolol tartrate 50 mg tablet 25 mg PO BID 09/18/19 03/28/25 03/27/25 08:00 History aspirin 81 mg tablet,delayed 81 mg PO HS 11/25/19 03/28/25 03/26/25 21:00 History release estradiol 1 mg tablet 0.5 mg PO HS 05/04/20 03/28/25 03/26/25 21:00 History potassium chloride 10 mEq 10 meq PO DAILY 05/04/20 03/28/25 03/27/25 08:00 History tablet,extended release ropinirole 0.5 mg tablet 0.5 mg PO TID 05/04/20 03/28/25 03/26/25 21:00 History immune glob G 40 gram/400 500 ml IV MONTHLY 06/26/22 03/28/25 03/04/25 History mL(10%)-gly-IgA ave 46 mcg/mL injection soln (Gamunex-C) fluoxetine 20 mg tablet 20 mg PO HS 01/27/23 03/28/25 03/26/25 21:00 History gabapentin 400 mg capsule 400 mg PO BID 01/27/23 03/28/25 03/26/25 08:00 History (Neurontin) liraglutide 0.6 mg/0.1 mL (18 mg/3 1.8 mg subcut DAILY 08/23/23 03/28/25 03/25/25 12:00 History mL) subcutaneous pen injector (Victoza 2-Sean) trazodone 100 mg tablet 100 mg PO HS 10/11/23 03/28/25 03/26/25 21:00 History ipratropium 0.5 mg-albuterol 3 mg 3 ml inhalation Q6H PRN shortness 11/07/24 03/28/25 03/27/25 12:00 History (2.5 mg base)/3 mL nebulization of breath or wheezing soln glimepiride 2 mg tablet 2 mg PO DAILY 03/28/25 03/28/25 03/27/25 08:00 History Allergies Allergy/AdvReac Type Severity Reaction Status Date / Time Sulfa (Sulfonamide AdvReac Unknown Nausea and Verified 05/01/25 12:01 Antibiotics) Vomiting Review of Systems Review of Systems: All systems reviewed & are unremarkable except as noted in HPI and below Constitutional: Constitutional: Reports no additional constitutional complaints Musculoskeletal: Musculoskeletal: Reports as per HPI, Reports arthralgias and Reports joint swelling Integumentary/Breasts: Skin/Breast: Reports system reviewed and no additional complaints, except as docu PMFSH Past Medical History Medical History Stroke ~14 mon ago Hyperlipidemia Hypertension Thyroid disease Anxiety Diabetes mellitus Asthma RLS (restless legs syndrome) CVID (common variable immunodeficiency) Allergic rhinitis Asthma TATUM (obstructive sleep apnea) Tobacco abuse Surgical History Surgical History History of incisional hernia repair Laparoscopic 5 cm reducible recurrent incisional hernia repair with mesh, da Kiko assisted on 08/29/23 [facility] H/O hemicolectomy 01/08/2022 Family History Family History Sibling Cancer Mother Cancer of kidney Other Cerebrovascular accident Diabetes mellitus Heart disease Hypertension Social History Social History Smoking packs per day: 0.25 Smoking cigarettes per day: 5.0 Years smoked: 45 Smoking pack-years: 11.25 Smoking status: Current every day smoker Tobacco type: cigarettes Second hand tobacco smoke exposure: No Additional smoking assessment comments: Smoking 0.5ppd now. Alcohol intake: never Drinks per week: 0 Substance use: current Substance use type: marijuana Other substance usage details: gummies once in awhile Last use: 12/04/24 Do You Feel Safe in your Home?: No Lack of Transportation: No Lack of Food: Never True Current Housing: I Have Housing Concerned About Future Housing: No Difficulty Paying Gas/Electric Bills: No Difficulty Paying for Meds: No Currently Unemployed: No Education: Associate Degree Difficulty w/ Childcare or Family Care: No Living arrangements: alone Gender identity (if verbalized by the patient): Female Spiritual care concerns: No Comments At the time of my signature, I reviewed and agree with the nursing past medical, surgical, social, and family history. There is no relevant family history pertinent to the patient complaint. Exam Const: General: cooperative, no acute distress, well developed, alert, ill appearing chronically; not acutely and well nourished Nutritional Appearance: well nourished Orientation/consciousness: patient oriented x3 Limitations: no limitations HENMT: Head: normal to inspection Eyes: General: appearance normal, both eyes and all related structures Alignment and Position: alignment normal Neck: Neck: normal visual inspection, full ROM, no lymphadenopathy and no meningeal signs Chest: Chest palpation & inspection: normal inspection of the chest Resp: Effort & Inspection: normal respiratory effort and able to speak in complete sentences Cardio: Rate: regular rate Neuro: General: patient oriented x3, gait normal, moves all extremities and no meningeal signs Cognition (Neuro): normal cognition Speech: normal speech Gait exam (Neuro): Normal gait present Extrem: General: normal to inspection, full ROM, capillary refill normal and normal gait Left upper extremity: wrist tenderness, swelling, abnormal ROM pain with active ROM, ecchymosis, normal vascular exam and radial pulse present; no unusual warmth, no abrasions, no foreign bodies and no penetrating wound and hand normal to inspection, normal capillary refill, neuromotor exam normal Details: thumb opposition normal, thumb IP flexion normal, thumb ADduction normal and fingers 2-5 ABduction normal, normal ROM of fingers and swelling (Proximal hand) Psych: Appearance: grossly normal and well kempt Mental Status: mental status grossly normal Speech and movement: Normal speech and movement present and Clear speech present Affect: normal affect Attitude: cooperative Course Course Level of Care: Express Care Visit Vital Signs Vital signs: Vital Signs Temperature 98.4 F 05/01/25 12:01 Pulse Rate 66 05/01/25 12:01 Respiratory Rate 14 05/01/25 12:01 Blood Pressure 136/61 05/01/25 12:01 Pulse Oximetry 98 05/01/25 12:01 Oxygen Delivery Room Air 05/01/25 12:01 Temperature 98.4 F 05/01/25 12:01 Pulse Rate 66 05/01/25 12:01 Respiratory Rate 14 05/01/25 12:01 Blood Pressure 136/61 05/01/25 12:01 Pulse Oximetry 98 05/01/25 12:01 Oxygen Delivery Room Air 05/01/25 12:01 Reviewed MDM - Extremity Injury (Upper) MDM Narrative Medical decision making narrative: Patient sitting in exam room. Patient is nontoxic, vitals are stable. Patient presents with 4 day history of left wrist pain, swelling with bruising. Decreased range of motion secondary to pain. Capillary refill under 2 seconds. Sensation intact. Positive radial pulses. X-rays negative for fracture. Discussed [id number] treatments, Peter wrap applied Patient appropriate for outpatient treatment and follow-up Discharge instructions reviewed with patient, as well as provided in writing per nursing staff. The instructions also include specific and strict return/GO TO THE ER as well as f/u information. All questions have been answered, and the patient deny any further questions with discharge and discharge plan. Some parts of this dictation were generated by voice recognition software and may contain typographical and/or grammatical inaccuracies. Differential Diagnosis Differential diagnosis: Likely sprain and strain of wrist, fracture of wrist and other (Wrist contusion) Imaging Data Radiologist's impression: Left wrist Technique: PA, oblique, lateral, and ulnar deviation views were obtained. Clinical History: Injury Findings: No acute fracture or dislocation is seen. Osseous alignment is anatomic. Joint spaces are preserved. Soft tissues are unremarkable. Impression: Unremarkable left wrist radiographs. Critical Care Time Critical Care Time Critical Care Time: No Discharge Plan Discharge Clinical Impression: Contusion of left wrist, initial encounter Patient Disposition: Home Condition: Stable Instructions: Contusion in Adults (ED) Additional Instructions: Your Xray did not show a fracture. Ice should be applied to help reduce swelling. It can be used for 20 to 30 minutes, every 2-3 hours while awake. Do not apply ice directly to your skin. Wear the Peter wrap for additional support. You can alternate ibuprofen 600mg 3 times a day as needed Please schedule a follow-up visit with your personal physician for further evaluation and treatment within 2 weeks especially if symptoms persist. For new or worsening symptoms go directly to the emergency room Patient Language: Gabonese Prescriptions: No Action ipratropium-albuterol 0.5 mg-3 mg(2.5 mg base)/3 mL solution for nebulization 3 ml inhalation Q6H PRN (Reason: shortness of breath or wheezing) atorvastatin 40 mg tablet 40 mg PO HS famotidine 40 mg tablet 40 mg PO DAILY fenofibrate 160 mg tablet 160 mg PO HS levothyroxine 50 mcg tablet 50 mcg PO DAILY metoprolol tartrate 50 mg tablet 25 mg PO BID Rx Instructions: pt stats, takes half in the morning and half at night. aspirin 81 mg tablet,delayed release (DR/EC) 81 mg PO HS Gamunex-C 40 gram/400 mL (10 %) solution 500 ml IV MONTHLY Patient Comments: Pt to verify date of last dose belived schedule for next week Rx Instructions: 50g q28 days Airsupra 90-80 mcg/actuation HFA aerosol inhaler 2 inh inhalation DIRECTED Qty: 10.7 5RF Rx Instructions: as a single dose; may repeat up to 6 doses per day (12 inhalations) roflumilast [Daliresp] 500 mcg tablet See Rx Instructions .ROUTE .COMPLEX 90 Days Qty: 90 3RF Dose Instruction: TAKE 1 TABLET BY MOUTH DAILY Rx Instructions: TAKE 1 TABLET BY MOUTH DAILY. Breztri Aerosphere 160-9-4.8 mcg/actuation HFA aerosol inhaler 2 inh INHALATION BID Qty: 10.7 11RF Rx Instructions: rinse and spit potassium chloride 10 mEq tablet extended release 10 meq PO DAILY estradiol 1 mg tablet 0.5 mg PO HS ropinirole 0.5 mg Tablet 0.5 mg PO TID gabapentin [Neurontin] 400 mg capsule 400 mg PO BID fluoxetine 20 mg tablet 20 mg PO HS glimepiride 2 mg tablet 2 mg PO DAILY liraglutide [Victoza 2-Sean] 0.6 mg/0.1 mL (18 mg/3 mL) Pen Injector 1.8 mg SUBCUT DAILY oxycodone-acetaminophen [Percocet] 10-325 mg tablet 1 - 2 tablet PO Q4H PRN (Reason: pain) Qty: 30 0RF trazodone 100 mg tablet 100 mg PO HS Follow-up/Referrals: Angel Guerra MD [Primary Care Provider] - 2 Weeks ([facility] care follow up ) Time of Disposition: 12:53
[2025-05-01 12:01] VITALS: BP 136/61; PULSE 66; RESP 14; TEMP 36.9; O2SAT 98
== END 2025-05-01 12:56 | disposition home or self-care (01) ==
PROVIDERS: Emergency Provider Nurse Practitioner; PCP Family Medicine
DX: S60.212A Contusion of left wrist, initial encounter (principal); X50.9XXA Other and unspecified overexertion or strenuous movements or postures, initial encounter; I10 Essential (primary) hypertension; E11.9 Type 2 diabetes mellitus without complications; Z79.84 Long term (current) use of oral hypoglycemic drugs; Z79.85 Long-term (current) use of injectable non-insulin antidiabetic drugs; E78.5 Hyperlipidemia, unspecified; J44.9 Chronic obstructive pulmonary disease, unspecified; D83.9 Common variable immunodeficiency, unspecified; G25.81 Restless legs syndrome; E07.9 Disorder of thyroid, unspecified; F41.9 Anxiety disorder, unspecified; F17.210 Nicotine dependence, cigarettes, uncomplicated; Z86.73 Personal history of transient ischemic attack (TIA), and cerebral infarction without residual deficits; Z79.82 Long term (current) use of aspirin
CPT/HCPCS: 73110; 99213; G0463

== ENCOUNTER 2025-07-13 12:57 | Outpatient (CLI) | payer OTHER, SELFPAY ==
--- NOTE | ~2025-07-13 | XR_ITS ---
Examination: XR chest 2V Clinical History: COUGH,WHEEZING Comparison: 03/27/2025 Technique: PA and Lateral Findings: Cardiomediastinal silhouette normal size and configuration. Extensive aortic calcified atherosclerotic disease. Lungs clear. Mild hyperinflation. A few calcified granulomata. No acute bony abnormality. IMPRESSION: 1. No acute cardiopulmonary findings. Reviewed, dictated and finalized at location R.
--- OUTSIDE RECORDS SUMMARY | 2025-07-13 13:11 | XMS_ITS | Encounter Summary ---
Author Organization [facility] Address [address] [facility] [place] [address] Care Team Providers Care Health And Fitness Professor Name Role Phone Angel Guerra MD Primary Care Provider [phone] Reason for Visit * Reason Onset Date Comments Results 10/01/2023 Encounter Details Date Type Department Care Team (Late st Contact Info) Description 10/01/2023 Telephone [facility] [address] [facility], [place] [address] Trisha Bray MD [address] [place] [address] Results Social History Tobacco Use Types Packs/Day [...] on file Legal Sex Female 5:13 PM TEST LEAD Gender Identity Not on file Sexual Orientation [...] mg/dL 302 272 R, CM Resulting Agency [facility] Parameters Male Ref. Range Female Ref. Range 09/26/23 WBC [id number] [id number] 8200 Lymphocytes % 21-48 18-54 19 Lymphocytes [id number] 0750-8768 1558 CD3+ % 75-80 76-78 65 CD3 6105-1741 7855-2446 1013 CD3+CD4+ % (CD4 T cells) 34-61 26-62 38 CD3+CD4+ 564-8197 067-2761 592 CD3+CD8+ % (CD8 T cells) 16-38 14-44 27 CD3+CD8+ 314-145 659-7369 421 CD4:CD8 Ratio 0.97-3.71 0.6-4.4 1.41 CD19 [...] maturation subsets in adults of [facility]. Immunobiology, 219(7), 487-496. Matheus Randle, Matheus Ceja, [...] Trisha Bray MD Allergy & Immunology Fellow LEAD documented in this encounter Plan of Treatment Upcoming Encounters Date Type Department Care Team (Late st Contact Info) Description 2025 3:00 PM TEST LEAD Office Visit [facility] [address] [place] [address], [place] [address] Lee Mendez MD [address] [place] [address] DIV OF ALLERGY/[place] [address] documented as of this encounter Visit Diagnoses Not on filedocumented in this encounter Care Teams Health And Fitness Professor Relationship Specialty Start Date End Date Angel Guerra MD [address] [place] [address] PCP - General 01/11/22 documented as of this encounter
--- OUTSIDE RECORDS SUMMARY | 2025-07-13 13:11 | XMS_ITS | Encounter Summary ---
Author Organization [facility] Address [address] [facility] [place] [address] Care Team Providers Care Independent Jeweler Name Role Phone Paulette Pedraza MD Primary Care Provider + [phone] Angel Guerra MD Primary Care Provider + [phone] Encounter Details Date Type Department Care Team (Late st Contact Info) Description 08/09/2021 Telephone [facility] [address] [place] [address] Lee Mendez MD [facility] OF ALLERGY[place] [address] Social History Tobacco Use Types Packs/Day Years Used Date Smoking Tobacco: Every Day Cigarettes Smokeless Tobacco: Current Alcohol Use Standard Drinks/Week Comments No 0 (1 standard drink = 0.6 oz pur e alcohol) PHQ-2 Answer Date Recorded PHQ2 TOTAL SCORE 0 07/27/2021 Comments Unknown Sex and Gender Information Value Date Recorded Sex Assigned at Not on file Legal Sex Female 5:13 PM VICE PRESIDENT QUALITY Gender Identity Not on file Sexual Orientation Not on file documented as of this encounter Patient Instructions * Patient Instructions* Lore Amezquita - 08/09/2021 1:14 PM CDT Patient called and would like to talk to Dr. Mendez's nurse in regards to her medication needing to be certified. Contact number is [phone]. documented in this encounter Plan of Treatment Upcoming Encounters Date Type Department Care Team (Late st Contact Info) Description 2025 3:00 PM VICE PRESIDENT QUALITY Office Visit [facility] [address] [place] [address], [place] [address] Lee Mendez MD [address] [place] [address] DIV OF ALLERGY/[place] [address] documented as of this encounter Visit Diagnoses Not on filedocumented in this encounter Care Teams Independent Jeweler Relationship Specialty Start Date End Date Paulette Pedraza MD PCP - General 12/26/16 01/10/22 Angel Guerra MD [address] [facility] [address] [place] [address] PCP - General 01/11/22 documented as of this encounter
--- OUTSIDE RECORDS SUMMARY | 2025-07-13 13:11 | XMS_ITS | Data Portability ---
Author Organization [place] [facility] OFFICE Address [address] [place] [address] Care Team Providers Care Residential Specialist Name Role Phone BROOKLYN FIGUEROA Primary Care Provider Assessment No assessment recorded. Plan of Treatment Reminders Order Date Submit Date Provider Last Modified By Organization Details Last Modified Time Details Appointments None recorded. Lab None recorded. Referral None recorded. Procedures None recorded. Surgeries None recorded. Imaging electrocar diogram 2017 018 [email or web address] Not available 9 17:12:22 Medication Orders furosemide 40 mg tablet 2017 018 [email or web address] [facility] #88952, [address], [place], [id number], 0 12:38:49 potassium chloride ER 10 mEq tablet,ext ended release 2017 018 INTERFACE [facility] #[id number], [address], [place], [id number], 8 17:58:14 nitroglyce rin 0.4 mg sublingual tablet 2017 018 Not available 8 10:50:12 metoprolol tartrate 50 mg tablet 2017 018 INTERFACE [facility] #[id number], [address], [place], [id number], 8 17:57:45 atorvastat in 40 mg tablet 2017 018 INTERFACE [facility] #[id number], [address] [facility], [place], [place], [id number], 8 17:55:31 fenofibrat e 160 mg tablet 2017 INTERFACE [facility] #94563, [address] [facility], [place], [place], [id number], 8 17:57:46 Patient TargetsNo targets recorded. Patient Instructions Encounter Date Encounter Id Patient Instructions Last Modified By Organization Details Last Modified Time 06/11/2018 [id number] sleep apnea: car e instructions [email or web address] Not available 06/11/2018 17:55:27 learning about low-fat eating [email or web address] Not available 06/11/2018 17:55:27 Scribed by Ronel Su ESTIMATOR LUMBER-C lsenci Not available 06/11/2018 17:59:45 05/04/2020 [id number] sleep apnea: car e instructions [email or web address] Not available 05/04/2020 13:28:27 learning about low-fat eating [email or web address] Not available 05/04/2020 13:28:27 05/04/2020 Advise d to go to the ER from the office. Pt. verbalized understanding and states she will go to [facility] from the office. Pt took her own transportation to the ER. Weight loss, Exercise advised Education on smoking. Reports a decrease in use to 4-5 per day from 1ppd. Low cholesterol diet advised Low sodium diet advised. [email or web address] Not available 05/04/2020 13:26:21 Scribed by Nicci Bernard, MSN, VACUUM CLEANER OPERATOR, ESTIMATOR LUMBER-C Not available 05/04/2020 12:48:14 04/04/2021 [id number] sleep apnea: car e instructions [email or web address] Not available 04/04/2021 21:37:57 learning about low-fat eating [email or web address] Not available 04/04/2021 21:37:57 Exercise advised Low cholesterol diet advised Low sodium diet advised [email or web address] Not available 04/04/2021 21:37:07 Scribed by Bhavik Galloway ESTIMATOR LUMBER-BC [email or web address] Not available 04/04/2021 21:37:20 10/18/2021 [id number] sleep apnea: car e instructions [email or web address] Not available 10/18/2021 16:10:56 learning about low-fat eating [email or web address] Not available 10/18/2021 16:10:56 Exercise advised Low cholesterol diet advised Low sodium diet advised. [email or web address] Not available 10/18/2021 16:11:04 12/21/2022 [id number] Exercise advised Low cholesterol diet advised Low [...] Address Organization Details Recorded Time Palpitatio ns 41662431 Active 2015 [place] [facility] 6 01:56:30 Benign hypertensi on 47743552 Active 2015 [place] [facility] 4 06:54:58 Disorder of coronary artery 927312609 Active 2015 [place] [facility] 6 01:57:10 Diabetes mellitus 67885541 Active 2015 Insulin dependent Cindy Gutierrezcarissa [place], [place] - [facility] 4 06:55:06 Moderate chronic obstructiv e pulmonary disease 953291036 Active 2015 [place] [facility] 6 01:58:18 Asthma 586952958 Active 2015 Cindy [place] [facility] 4 06:55:01 Bronchitis 99161865 Active 2015 [place] [facility] 6 01:58:37 Pneumonia 254327141 Active 2015 Har[place] [facility] 6 01:58:49 Obstructiv e sleep apnea syndrome 24436876 Active 2015 [place] [facility] 4 06:55:17 Hypothyroi dism 20825632 Active 2015 Cindy [place] [facility] 4 06:55:12 Cerebrovas cular accident 483443797 Active 2015 [place] [facility] 6 01:59:26 History of depression 512714146 Active 2015 [place] [facility] 6 01:59:37 Gastroesop hageal reflux disease 341576814 Active 2015 [place] [facility] 6 01:59:48 Degenerati on of interverte bral disc 57729198 Active 2015 [place] [facility] 6 02:00:46 Anxiety 82351074 Active 2015 [place] [facility] 6 02:00:57 Hyperlipid emia 50264759 Active 2016 C[place] [facility] 4 06:55:10 Edema of lower extremity 368936646 Active 2016 Cindy [place], [place] - [...] Not available Not available Not available 02/10/2016 [id number] SNOMED Statu s- Activ e Type- Drug Intol eranc e Xu Murray [facility], [place] - [facility] 6 [...] Address Organization Details Last Updated DateTime 2 82110.5 1 g 95 % 95 % 78 /min 142/80 mm[Hg] [facility] 15:53:53 Date Recorded Body height Body mass index (BMI) Body weight Body weight Oxygen saturation Oxygen saturation in Arterial blood by Pulse oximetry Heart rate Systolic And Diastolic Provider Name and Address Organization Details Last Updated DateTime 3 160.02 cm 27.9 kg/m2 54930.5 2 g 72910.8 6 g 90 % 90 % 62 /min 122/62 mm[Hg] ONEIL ARMSTRONG [facility] 3 17:29:12 Date Recorded Body weight Heart rate Respiratory rate Oxygen saturation Oxygen saturation in Arterial blood by Pulse oximetry Systolic And Diastolic Provider Name and Address Organization Details Last Updated DateTime 1 64878.5 9 g 79 /min 16 /min 97 % 97 % 104/62 mm[Hg] Christal Galloway [facility] 1 16:08:54 Date Recorded Body weight Heart rate Oxygen saturation Oxygen saturation in Arterial blood by Pulse oximetry Systolic And Diastolic Provider Name and Address Organization Details Last Updated DateTime 0 21483.1 4 g 87 /min 88 % 88 % 128/75 mm[Hg] Fuentes Betancourt [facility] 0 12:31:53 Date Recorded Body height Body mass index (BMI) Body weight Provider Name and Address Organization Details Last Updated DateTime 06/11/2018 160.02 cm 32.1 kg/m2 85871.22 g Mariluz Purcell [facility] 06/11/2018 17:26:23 Social History None recorded. Functional Status None recorded. Mental Status None recorded. Family History Nothing Reported. Medical History Condition Response Depression Y COPD Y Diabetes Y Stroke Y Asthma Y Sleep Apnea Y GERD/Reflux Y Hypertension Y Gynecological HistoryNo gynecological history recorded. Obstetrics History GPAL:G 0 P 0 0 0 0 Past Encounters Encounter ID Performer Location Encounter Start Date Encounter Closed Date Diagnosis/Indication Diagnosis SNOMED-CT Code Diagnosis ICD10 Code Diagnosis IMO Codes Diagnosis Note [id number] Fuentes Bell MD [facility] [address] [place] [address] 02/18/2016 12:00:26 02/18/2016 13:17:22 Hyperlipidemia 44350101 E78.5 Needs to keep LDL less than 70, and HDL more than 40 Disorder o f coronary artery 883680107 I77.9 Diabetes mellitus 399610 09 E11.9 Obstructiv e sleep apnea syndrome 58746212 G47.33 Atypical chest pain 1025 75185 R07.89 Treadmill Myoview Stress test, has high [place] Risk score. Has Known CAD, or CAD risk equivalent . To look for any ischemia. Carotid bruit 192559434 R09.89 [id number] Fuentes Bell MD [facility] [place] [address] 11/21/2016 09:40:06 11/22/2016 10:41:10 Benign hypertension 91320659 I10 Now well controlled Disorder o f coronary artery 444723538 I77.9 stable no new angina Palpitations 49822984 R0 0.2 Atypical chest pain 1025 95452 R07.89 Hyperlipidemia 96212936 E78.5 Needs to keep LDL less than 70, and HDL more than 40 Diabetes mellitus 621705 09 E11.9 with fair control Obstructiv e sleep apnea syndrome 21818792 G47.33 Carotid bruit 331943535 R09.89 Edema of l ower extremity 456322688 R60.0 Dyslipidemia 803924052 E 78.5 [id number] Fuentes Bell MD [facility] [address] [place] [address] 02/06/2017 14:39:27 02/07/2017 12:40:08 Benign hypertension 15462572 I10 Now well controlled Disorder o f coronary artery 154396194 I77.9 stable angina Dobutamine Myoview stress test, pt can not walk. Has known coronary artery disease, with atypical symptoms now Palpitations 46837121 R0 0.2 Atypical chest pain 1025 75978 R07.89 Hyperlipidemia 30763864 E78.5 Needs to keep LDL less than 70, and HDL more than 40 Diabetes mellitus 874238 09 E11.9 with fair control Obstructiv e sleep apnea syndrome 51476633 G47.33 Carotid bruit 564782825 R09.89 Edema of l ower extremity 530535291 R60.0 Dyslipidemia 837614866 E 78.5 Needs to keep LDL less than 70, and HDL more than 40Will [place] [id number] Fuentes Bell MD [facility] [address] [place] [address] 05/21/2018 15:57:23 05/21/2018 17:01:21 Benign hypertension 62792389 I10 Now well controlled Disorder o f coronary artery 497895085 I77.9 stable angina The patient will be scheduled for left heart catheteriz ation, with coronary angiogram, and possible PTCA/Stent . The procedure was discussed with the patient, and risks, benefits, and alternativ e options were explained. The patient was given informatio n about heart catheteriz ation and interventi onal procedures . The patient agrees to proceed. Palpitations 07394699 R0 0.2 Atypical chest pain 1025 08728 R07.89 Hyperlipidemia 62320049 E78.5 Needs to keep LDL less than 70, and HDL more than 40 Diabetes mellitus 216523 09 E11.9 with fair control Obstructiv e sleep apnea syndrome 34443180 G47.33 Carotid bruit 675003006 R09.89 Edema of l ower extremity 168628585 R60.0 On Lasix Dyslipidemia 828914750 E 78.5 Needs to keep LDL less than 70, and HDL more than 40Will [place] [id number] Fuentes Bell MD [facility] [address] [place] [address] 06/11/2018 16:37:18 10/21/2018 17:12:22 Benign hypertension 43891487 I10 Now well controlled Disorder o f coronary artery 345127767 I77.9 stable angina Had Cardiac cath on 05/27/18 that mild to moderate coronary artery disease. Maximal medical treatment. Atypical chest pain 1025 37234 R07.89 Occasional , but feels that it is related to asthma. Hyperlipidemia 00132875 E78.5 Needs to keep LDL less than 70, and HDL more than 40. 06/11/18 Discontinu ed Simvastati n 20 mg and started Atorvastat in 40 mg.Continu e Fenofibrat e. Diabetes mellitus 369706 09 E11.9 with fair control Obstructiv e sleep apnea syndrome 27854665 G47.33 Wears CPAP machine. Edema of l ower extremity 818357035 R60.0 On Lasix Benign ess ential hypertension 6698351 I10 Well controlled . [id number] Fuentes Bell MD [facility] [address] [place] [address] 05/04/2020 12:06:21 05/04/2020 13:28:36 Disorder of coronary artery 081111653 I77.9 05/04/2020 stable angina Had Cardiac cath on 05/27/18 that mild to moderate coronary artery disease. Maximal medical treatment. Atypical chest pain 1025 78197 R07.89 05/04/2020S OB, Wheezing, coughing. Advised to go to ER.Occasio nal, but feels that it is related to asthma. Hyperlipidemia 39751243 E78.5 05/04/2020L ast LDL on 12/05/2019 71, Continue Atorvastat inTri 192Continu e Fenofibrat e.Needs to keep LDL less than 70, and HDL more than 40. 06/11/18 Discontinu ed Simvastati n 20 mg and started Atorvastat in 40 mg.Continu e Fenofibrat e. Diabetes mellitus 968462 09 E11.9 05/04/2020L ast A1C 8.9 manage per PCP Obstructiv e sleep apnea syndrome 11421358 G47.33 05/04/2020W ears CPAP machine. Edema of l ower extremity 897190854 R60.0 05/04/2020E maria de jesus noted to the lower extremitie s. Is not taking her lasix Benign ess ential hypertension 1508726 I10 05/04/2020W ell controlled . [id number] Fuentes Bell MD [facility] [place] [address] 04/04/2021 16:02:07 04/04/2021 16:58:51 Atypical chest pain 205131570 R07.89 Dobutamine Stress test, has high [place] Risk score. Has Known CAD, or CAD risk equivalent . To look for any ischemia. Hyperlipidemia 17940191 E78.5 Needs to keep LDL less than 70, and HDL more than 40. 020 LDL 42Continue Lipitor 40 mg Diabetes mellitus 809615 E11.9 Treatment and evaluation by primary care doctor Discussed importance of adequate glycemic control to minimize cardiovasc ular disease progressio n, A1C goal of < 7% for type 2 DM. Obstructiv e sleep apnea syndrome 29321701 G47.33 Compliant with nightly CPAP use Edema of l ower extremity 278466126 R60.0 Stable on Lasix Benign ess ential hypertension 4228867 I10 Well controlled on current regimen Dizziness 295154388 R42 Obtain echo to evaluate for structural [place] [id number] Fuentes Bell MD [facility] [address] [place] [address] 10/18/2021 15:28:55 10/18/2021 16:18:34 Atypical chest pain 708996664 R07.89 Lexiscan Stress test, has high [place] Risk score. Unable to walk a treadmill due to exercise induced chest pain and increased fall risk due to dizziness. Has Known CAD, or CAD risk equivalent . To look for any ischemia. Hyperlipidemia 64622711 E78.5 Needs to keep LDL less than 70, and HDL more than 40.2 020 LDL 42Continue Lipitor 40 mg Diabetes mellitus 861109 E11.9 Treatment and evaluation by primary care doctor Discussed importance of adequate glycemic control to minimize cardiovasc ular disease progressio n, A1C goal of < 7% for type 2 DM. Obstructiv e sleep apnea syndrome 74538322 G47.33 Compliant with nightly CPAP use Edema of l ower extremity 874330821 R60.0 Stable on LasixLeg elevationO btain echo to evaluate for structural /functiona l disease. Benign ess ential hypertension 3284816 I10 Well controlled on current regimen Dizziness 935017851 R42 Obtain echo to evaluate for structural [place] [id number] Fuentes Bell MD [facility] [address] [place] [address] 12/21/2022 16:52:03 12/21/2022 17:58:03 Atypical chest pain 083765759 R07.89 Hyperlipidemia 78670009 E78.5 Needs to keep LDL less than 70, and HDL more than 40. 020 LDL 42Continue Lipitor 40 mg Diabetes mellitus 319860 09 E11.9 Treatment and evaluation by primary care doctor Discussed importance of adequate glycemic control to minimize cardiovasc ular disease progressio n, A1C goal of < 7% for type 2 DM. Obstructiv e sleep apnea syndrome 49694899 G47.33 Compliant with nightly CPAP use Edema of l ower extremity 967635072 R60.0 Stable on LasixLeg elevationO btain echo to evaluate for structural /functiona l disease. Benign ess ential hypertension 8590437 I10 Well controlled on current regimen Dizziness 958105512 R42 24 Hour Holter, to evaluate arrhythmia [...] AFTER 21 (MEDICAID REPLACEMENT - HMO) Alma Anedrson [id number] Alma Anderson 06/07/2021 1 [facility] - DOS PRIOR TO 2021 (MEDICAID REPLACEMENT - HMO) Alma Anderson [id number] Alma Anderson Notes Date Note Type Note [...] is normal. EF=>55%. Fuentes Bell MD [address] [place], [address], [facility] 06/11/2018 18:28:12 [...] function is normal. EF=>55%. Fuentes Bell MD [address] [place], [address], [facility] 05/04/2020 13:28:33 04/04/2021 text/html [...] : Right atrial enlargement, probably old anterior RI EKG 05/21/18 : Left posterior hemiblock. Possibly [...] ischemia nuclear portion is pending. [place] [facility] 04/11/2021 14:34:35 10/18/2021 text/html 10/18/20CC : Cardiac follow up, chest [id number] white woman with a PMH of CAD, [...] : Right atrial enlargement, probably old anterior RI EKG 05/21/18 : Left posterior hemiblock. Possibly [...] ischemia nuclear portion is pending. [place] [facility] 10/29/2021 19:15:52 12/21/2022 text/html 12/21/22CC : Cardiac follow up, [id number]-[id number]-hnt white woman with a PMH of CAD, [...] : Right atrial enlargement, probably old anterior RI EKG 05/21/18 : Left posterior hemiblock. Possibly [...] nuclear portion is pending. Fuentes Bell MD [address] [place], [address], [place] [facility] 12/21/2022 17:53:36 OBGyn Episode No OBEpisode recorded.
--- OUTSIDE RECORDS SUMMARY | 2025-07-13 13:11 | XMS_ITS | Encounter Summary ---
Author Organization [facility] Address [address] [facility] [place] [address] Care Team Providers Care Floor Press Operator Name Role Phone Paulette Pedraza MD Primary Care Provider + [phone] Angel Guerra MD Primary Care Provider + [phone] Reason for Visit * Reason Onset Date Comments Refill Request 07/25/2018 Encounter Details Date Type Department Care Team (Late st Contact Info) Description 07/25/2018 Telephone [facility] [address] [place] [address] Js Khan DO [address] [place] [address] Refill Request Social History Tobacco Use Types Packs/Day Years Used Date Smoking Tobacco: Every Day Cigarettes Smokeless Tobacco: Current Alcohol Use Standard Drinks/Week Comments No 0 (1 standard drink = 0.6 oz pur e alcohol) Comments Unknown Sex and Gender Information Value Date Recorded Sex Assigned at Not on file Legal Sex Female 5:13 PM COMMISSIONER PUBLIC WORKS Gender Identity Not on file Sexual Orientation Not on file documented as of this encounter Miscellaneous Notes * Telephone Encounter - Js Khan DO - 07/25/2018 11:11 AM CDT Received home certification request from [facility]. documented in this encounter Plan of Treatment Upcoming Encounters Date Type Department Care Team (Late st Contact Info) Description 2025 3:00 PM COMMISSIONER PUBLIC WORKS Office Visit [facility] [address] [place] [address], [place] [address] Lee Mendez MD [address] [place] [address] [address] DIV OF ALLERGY/[place] [address] documented as of this encounter Visit Diagnoses Not on filedocumented in this encounter Care Teams Floor Press Operator Relationship Specialty Start Date End Date Paulette Pedraza MD PCP - General 12/26/16 01/10/22 Angel Guerra MD [address] [place] [address] PCP - General 01/11/22 documented as of this encounter
--- OUTSIDE RECORDS SUMMARY | 2025-07-13 13:11 | XMS_ITS | Encounter Summary ---
Author Organization [facility] Address [address] [facility] [place] [address] Care Team Providers Care Child Center Assistant Name Role Phone Paulette Pedraza MD Primary Care Provider + [phone] Angel Guerra MD Primary Care Provider + [phone] Encounter Details Date Type Department Care Team (Late st Contact Info) Description 07/27/2021 Telephone [facility] [address] [place] [address] Lee Mendez MD [facility] OF ALLERGY/[place] [address] Social History Tobacco Use Types Packs/Day Years Used Date Smoking Tobacco: Every Day Cigarettes Smokeless Tobacco: Current Alcohol Use Standard Drinks/Week Comments No 0 (1 standard drink = 0.6 oz pur e alcohol) PHQ-2 Answer Date Recorded PHQ2 TOTAL SCORE 0 07/27/2021 Comments Unknown Sex and Gender Information Value Date Recorded Sex Assigned at Not on file Legal Sex Female 5:13 PM STONE BANKER Gender Identity Not on file Sexual Orientation Not on file documented as of this encounter Patient Instructions * Patient Instructions* Mervat Good - 07/27/2021 12:01 PM CDT Please call patient today for her telephone appt. At [phone]. Thank you documented in this encounter Plan of Treatment Upcoming Encounters Date Type Department Care Team (Late st Contact Info) Description 2025 3:00 PM STONE BANKER Office Visit [facility] [address] [place] [address], [place] [address] Lee Mendez MD [address] [place] [address] DIV OF ALLERGY/[place]OLOG[place] [address] documented as of this encounter Visit Diagnoses Not on filedocumented in this encounter Care Teams Child Center Assistant Relationship Specialty Start Date End Date Paulette Pedraza MD PCP - General 12/26/16 01/10/22 Angel Guerra MD [address] [place] [address] PCP - General 01/11/22 documented as of this encounter
--- OUTSIDE RECORDS SUMMARY | 2025-07-13 13:11 | XMS_ITS | Encounter Summary ---
Author Organization [facility] Address [address] [facility] [place] [address] Care Team Providers Care Nurse Clinical Name Role Phone Paulette Pedraza MD Primary Care Provider + [phone] Angel Guerra MD Primary Care Provider + [phone] Encounter Details Date Type Department Care Team (Late st Contact Info) Description 06/15/2020 Telephone [facility] [address] [place] [address] Lee Mendez MD [address] OF ALLERGY/[place] [address] Social History Tobacco Use Types Packs/Day Years Used Date Smoking Tobacco: Every Day Cigarettes Smokeless Tobacco: Current Alcohol Use Standard Drinks/Week Comments No 0 (1 standard drink = 0.6 oz pur e alcohol) Comments Unknown Sex and Gender Information Value Date Recorded Sex Assigned at Not on file Legal Sex Female 5:13 PM RAIL SPECIALIST Gender Identity Not on file Sexual [...] Please call. Thanks. Patiient Call Back number: [phone] documented in this encounter Plan of Treatment Upcoming Encounters Date Type Department Care Team (Late st Contact Info) Description 2025 3:00 PM RAIL SPECIALIST Office Visit [facility] [address] [place] [address], [place] [address] Lee Mendez MD [address] [place] [address] DIV OF ALLERGY/[place] [address] documented as of this encounter Visit Diagnoses Not on filedocumented in this encounter Care Teams Nurse Clinical Relationship Specialty Start Date End Date Paulette Pedraza MD PCP - General 12/26/16 01/10/22 Angel Guerra MD [address] [place] [address] PCP - General 01/11/22 documented as of this encounter
--- OUTSIDE RECORDS SUMMARY | 2025-07-13 13:11 | XMS_ITS | Encounter Summary ---
Author Organization [facility] Address [address] [facility] [place] [place] [address] Care Team Providers Care Radio Time Sales Supervisor Name Role Phone Angel Guerra MD Primary Care Provider Reason for Visit * Reason Onset Date Comments Medication Problem 10/04/2023 Encounter Details Date Type Department Care Team (Late st Contact Info) Description 10/04/2023 Telephone [facility] [address] [facility], [facility] [place] [address] Trisha Bray MD [address] [place] [address] Medication Problem Social History Tobacco Use Types [...] on file Legal Sex Female 5:13 PM NOCTURNIST PHYSICIAN Gender Identity Not on file Sexual Orientation Not on file documented as of this encounter Miscellaneous Notes * Telephone Encounter - Trisha Bray MD - 10/04/2023 2:44 PM CST Wrote medical appeal letter to approve gamunex for hypogammaglobulinemia Trisha Bray MD Allergy & Immunology Fellow URNIST PHYSICIAN documented in this encounter Plan of Treatment Upcoming Encounters Date Type Department Care Team (Late st Contact Info) Description 2025 3:00 PM NOCTURNIST PHYSICIAN Office Visit [facility] [address] [place] [address], [place] [address] Lee Mendez MD [address] [place] [address] DIV OF ALLERGY/[place] [address] documented as of this encounter Visit Diagnoses Not on filedocumented in this encounter Care Teams Radio Time Sales Supervisor Relationship Specialty Start Date End Date Angel Guerra MD [address] [place] [address] PCP - General 01/11/22 documented as of this encounter
--- OUTSIDE RECORDS SUMMARY | 2025-07-13 13:11 | XMS_ITS | Encounter Summary ---
Author Organization [facility] Address [address] [place] [address] Care Team Providers Care Ingredient Specialist Name Role Phone Paulette Pedraza MD Primary Care Provider + [phone] Angel Guerra MD Primary Care Provider + [phone] Encounter Details Date Type Department Care Team (Late st Contact Info) Description 08/05/2021 Telephone [facility] [address] [place] [address] Lee Mendez MD [facility] OF ALLERGY/[place] [address] Social History Tobacco Use Types Packs/Day Years Used Date Smoking Tobacco: Every Day Cigarettes Smokeless Tobacco: Current Alcohol Use Standard Drinks/Week Comments No 0 (1 standard drink = 0.6 oz pur e alcohol) PHQ-2 Answer Date Recorded PHQ2 TOTAL SCORE 0 07/27/2021 Comments Unknown Sex and Gender Information Value Date Recorded Sex Assigned at Not on file Legal Sex Female 5:13 PM VETERANS ADVISER Gender Identity Not on file Sexual Orientation Not on file documented as of this encounter Patient Instructions * Patient Instructions* Jessica Armijo - 08/05/2021 11:44 AM CDT Pt is calling to get her Gamunex re certified by Dr Mendez documented in this encounter Plan of Treatment Upcoming Encounters Date Type Department Care Team (Late st Contact Info) Description 2025 3:00 PM VETERANS ADVISER Office Visit [facility] - Allergy [address] [place] [address], [place] [address] Lee Mendez MD [address] [place] [address] 2L DIV OF ALLERGY/[place] [address] documented as of this encounter Visit Diagnoses Not on filedocumented in this encounter Care Teams Ingredient Specialist Relationship Specialty Start Date End Date Paulette Pedraza MD PCP - General 12/26/16 01/10/22 Angel Guerra MD [address] [place] [address] PCP - General 01/11/22 documented as of this encounter
--- OUTSIDE RECORDS SUMMARY | 2025-07-13 13:11 | XMS_ITS | Encounter Summary ---
Author Organization [facility] Address [address] [place] [address] Care Team Providers Care Pourer Off Name Role Phone Paulette Pedraza MD Primary Care Provider + [phone] Angel Guerra MD Primary Care Provider + [phone] Reason for Visit * Reason Onset Date Comments Results 01/15/2019 Encounter Details Date Type Department Care Team (Late st Contact Info) Description 01/15/2019 Telephone [facility] [address] [place] [address] Js Dubon DO [address] [place] [address] Results Social History Tobacco Use Types Packs/Day Years Used Date Smoking Tobacco: Every Day Cigarettes Smokeless Tobacco: Current Alcohol Use Standard Drinks/Week Comments No 0 (1 standard drink = 0.6 oz pur e alcohol) Comments Unknown Sex and Gender Information Value Date Recorded Sex Assigned at Not on file Legal Sex Female 5:13 PM SEISMOGRAPH RECORDER Gender Identity Not on file Sexual Orientation Not on file documented as of this encounter Miscellaneous Notes * Telephone Encounter - Js Dubon DO - 01/15/2019 5:07 PM CDT Received lab results from [facility]. 01/06/2019 IgG 642, Creatine 0.62, eGFR [...] st Contact Info) Description 2025 3:00 PM SEISMOGRAPH RECORDER Office Visit [facility] - Allergy [address] [place] [address], [place] [address] Lee Mendez MD [address] [place] [address] OF ALLERGY/[place] [address] documented as of this encounter Visit Diagnoses Diagnosis Hypogammaglobulinemia (HCC)- Primary Hypogammaglobulinaemia, unspecified documented in this encounter Care Teams Pourer Off Relationship Specialty Start Date End Date Paulette Pedraza MD PCP - General 12/26/16 01/10/22 Angel Guerra MD [address] [place] [address] PCP - General 01/11/22 documented as of this encounter
--- OUTSIDE RECORDS SUMMARY | 2025-07-13 13:11 | XMS_ITS | Clinical Summary ---
Author Organization [facility] [employer] Address [address] [facility] [place] [address] Care Team Providers Care Fish Liver Sorter Name Role Phone Angel Guerra MD Primary Care Provider Source Comments [facility],non-owned Affiliates and Associated Physician Practices is amultiple site organization consisting of ambulatory clinics and hospital sitesin [place], [place], [place] and [place]. This disclosure is being madepursuant to the Care Everywhere program and may not contain all information available regarding this patient. Last updated 18.[facility] [employer] Allergies Active Allergy Reactions Criticality Noted Date [...] 11 4 Active Blood Glucose Monitoring Suppl (Backspaces Verio Flex System) w/Device KIT USE TO [...] capsule by mouth 3 times daily Active Backspaces Verio test strip TEST BLOOD SUGARS THREE TIMES DAILY 4 Active TRUEplus 5-Bevel Pen [place] 32G X 4 MM [facility] USE TO INJECT VICTOZA EVERY DAY 4 Active albuterol-iprat ropium (Duo-Neb) 0.5-2.5 (3) MG/3ML nebulizer solution USE 1 VIAL VIA NEBULIZER FOUR TIMES DAILY FOR SHORTNESS OF BREATH Active Lancets (MamayaTOUCH DELICA PLUS 33G EXTRA FINE LANCET) USE TO CHECK BLOOD GLUCOSE THREE TIMES DAILY 3 Active Victoza 18 MG/3ML pen ADMINISTER 1.8 MG UNDER THE SKIN EVERY DAY Active traZODone (Desyrel) 100 MG tablet Take 1 (one) tablet by mouth at bedtime Active azelastine (Astelin) 0.1 % nasal spray [place] 2 (two) sprays into each nostril 2 [...] Encounters Date Type Department Care Team Description 05/08/2025 Telephone [facility] [address] [place] [address], [facility] [place] [address] Lee Mendez MD Refill Request (IVIG) from Last 3 Months Social History [...] on file Legal Sex Female 5:13 PM DIRECTOR WHOLESALE Gender Identity Not on file Sexual Orientation Not on file Last Filed Vital Signs Vital Sign Reading Time Taken Comments Blood Pressure 114/70 08/29/2024 10:52 AM DIRECTOR WHOLESALE Pulse 58 08/29/2024 10:52 AM DIRECTOR WHOLESALE Temperature 36.3 C (97.4 F) 08/29/2024 10:52 AM DIRECTOR WHOLESALE Respiratory Rate 18 09/26/2023 2:53 PM DIRECTOR WHOLESALE Oxygen Saturation 93% 08/29/2024 10:52 AM DIRECTOR WHOLESALE Inhaled Oxygen Concentration - - Weight 62.3 kg (137 lb 6.4 oz) 08/29/2024 10:52 AM DIRECTOR WHOLESALE Height 160 cm (5' 3) 08/29/2024 10:52 AM DIRECTOR WHOLESALE Body Mass Index 24.34 08/29/2024 10:52 AM DIRECTOR WHOLESALE Plan of Treatment Upcoming Encounters Date Type Department Care Team (Late st Contact Info) Description 2025 3:00 PM DIRECTOR WHOLESALE Office Visit [facility] [address] [place] [address], [place] [address] Lee Mendez MD [address] [place] [address] OF ALLERGY/[place] [address] Health Maintenance Due Date Last Done Comments [...] - Risk 60-74 years 1-dose series) 2022 DEPRESSION SCREENING 10/15/2024 09/26/2023, 06/07/20 22 COVID-19 VACCINE ( season) 2025 INFLUENZA VACCINE (#1) 2025 9, 07/25/2018, 08/01/2017, [...] patient's age to complete this topic Insurance [facility] Care Teams Fish Liver Sorter Relationship Specialty Start Date End Date Angel Guerra MD [address] [place] [address] PCP - General 01/11/22
--- OUTSIDE RECORDS SUMMARY | 2025-07-13 13:11 | XMS_ITS | Encounter Summary ---
Author Organization [facility] Address [address] [place] [address] Care Team Providers Care Pit Hand Name Role Phone Angel Guerra MD Primary Care Provider Reason for Visit * Reason Onset Date Comments Refill Request 09/26/2023 Encounter Details Date Type Department Care Team (Late st Contact Info) Description 09/26/2023 Telephone [facility] [address] [facility], [place] [address] Trisha Bray MD [address] [place], [place] [id number] Refill Request Social History Tobacco Use Types [...] on file Legal Sex Female 5:13 PM COLD MILL SUPERVISOR Gender Identity Not on file Sexual [...] hopeless Not at all 09/26/2023 2:48 PM COLD MILL SUPERVISOR Nelida Carrasco RN Patient Health Questionnaire -2 Score 0 09/26/2023 2:48 PM COLD MILL SUPERVISOR Nelida Carrasco RN documented as of this encounter Miscellaneous Notes * Telephone Encounter - Trisha Bray MD - 09/26/2023 4:40 PM CST Spoke with [facility]. Gave verbal order to renew gamunex C 50g [id number], and add 500cc NS bolus Trisha Bray MD Allergy & Immunology Fellow MILL SUPERVISOR documented in this encounter Plan of Treatment Upcoming Encounters Date Type Department Care Team (Late st Contact Info) Description 2025 3:00 PM COLD MILL SUPERVISOR Office Visit [facility] [address] [place] [address], [place] [address] Lee Mendez MD [address] [place] [address] 2L DIV OF ALLERGY/[place] [address] documented as of this encounter Visit Diagnoses Not on filedocumented in this encounter Care Teams Pit Hand Relationship Specialty Start Date End Date Angel Guerra MD [address] [place] [address] PCP - General 01/11/22 documented as of this encounter
== END 2025-07-13 12:58 | disposition home or self-care (01) ==
PROVIDERS: PCP Family Medicine; Visit Provider Nurse Practitioner Family
DX: R06.02 Shortness of breath (principal); R06.2 Wheezing
CPT/HCPCS: 71046

== ENCOUNTER 2025-09-02 10:12 | Outpatient (CLI) | payer OTHER, SELFPAY ==
[2025-09-02 10:50] LABS: Hematocrit 45.4 % (37.0-47.0); Hemoglobin 14.8 g/dL (12.0-15.0); Mean Corpuscular HGB Conc 32.6 g/dl (32-36); Mean Corpuscular Hemoglobin 27.7 pg (26-34); Mean Corpuscular Volume 84.9 fl (80-100); Platelet Count Result 192 k/mm3 (150-375); Red Blood Count 5.35 M/mm3 (4.2-5.4); White Blood Count 6.2 K/mm3 (4.5-10.0)
[2025-09-02 11:03] LABS: Hemoglobin A1C 7.2 % (<5.7)
[2025-09-02 11:12] LABS: Alanine Aminotransferase 20 U/L (6-35); Albumin Level 4.2 g/dL (3.5-5.1); Alkaline Phosphatase 81 U/L (38-126); Anion Gap 8 mmol/L (4-12); Aspartate Amino Transferase 29 U/L (14-36); Bilirubin,Total 0.4 mg/dL (0.2-1.3); Blood Urea Nitrogen 8 mg/dL (7-17); Calcium 9.1 mg/dL (8.4-10.2); Carbon Dioxide 24 mmol/L (22-30); Chloride 100 mmol/L (98-107); Cholesterol 165 mg/dL (0-200); Estimated Glomerular Filt Rate > 60; Glucose 134 mg/dL (65-110); HDL Direct 55 mg/dL; Magnesium 1.5 mg/dL (1.6-2.3); Potassium 4.5 mmol/L (3.4-5.0); Sodium 132 mmol/L (137-145); Total Protein 7.8 g/dL (6.3-8.2); Triglycerides 97 mg/dL (<150)
[2025-09-02 11:47] LABS: Thyroid Stimulating Hormone 0.991 uIU/mL (0.465-4.680)
[2025-09-02 12:25] LABS: Vitamin B12 > 1000.0 pg/mL (239-931)
--- OUTSIDE RECORDS SUMMARY | 2025-09-02 14:18 | XMS_ITS | Clinical Summary ---
Author Organization [facility] Address [address] [place] [address] Care Team Providers Care Lamp Shade Joiner Name Role Phone Angel Guerra MD Primary Care Provider Source Comments [facility],non-owned Affiliates and Associated Physician Practices is amultiple site organization consisting of ambulatory clinics and hospital sitesin [place], [place], [place] and [place]. This disclosure is being madepursuant to the Care Everywhere program and may not contain all information available regarding this patient. Last updated 18.[facility] Allergies Active Allergy Reactions Criticality Noted Date [...] 11 4 Active Blood Glucose Monitoring Suppl (HBCS Verio Flex System) w/Device KIT USE TO [...] capsule by mouth 3 times daily Active HBCS Verio test strip TEST BLOOD SUGARS THREE TIMES DAILY 4 Active TRUEplus 5-Bevel Pen [place] 32G X 4 MM [facility] USE TO INJECT VICTOZA EVERY DAY 4 Active albuterol-iprat ropium (Duo-Neb) 0.5-2.5 (3) MG/3ML nebulizer solution USE 1 VIAL VIA NEBULIZER FOUR TIMES DAILY FOR SHORTNESS OF BREATH Active Lancets (CommScopeTOUCH DELICA PLUS 33G EXTRA FINE LANCET) USE TO CHECK BLOOD GLUCOSE THREE TIMES DAILY 3 Active Victoza 18 MG/3ML pen ADMINISTER 1.8 MG UNDER THE SKIN EVERY DAY Active traZODone (Desyrel) 100 MG tablet Take 1 (one) tablet by mouth at bedtime Active azelastine (Astelin) 0.1 % nasal spray [place] 2 (two) sprays into each nostril 2 [...] on file Legal Sex Female 5:13 PM PERSONAL DEVELOPMENT MENTOR Gender Identity Not on file Sexual Orientation Not on file Last Filed Vital Signs Vital Sign Reading Time Taken Comments Blood Pressure 114/70 08/29/2024 10:52 AM PERSONAL DEVELOPMENT MENTOR Pulse 58 08/29/2024 10:52 AM PERSONAL DEVELOPMENT MENTOR Temperature 36.3 C (97.4 F) 08/29/2024 10:52 AM PERSONAL DEVELOPMENT MENTOR Respiratory Rate 18 09/26/2023 2:53 PM PERSONAL DEVELOPMENT MENTOR Oxygen Saturation 93% 08/29/2024 10:52 AM PERSONAL DEVELOPMENT MENTOR Inhaled Oxygen Concentration - - Weight 62.3 kg (137 lb 6.4 oz) 08/29/2024 10:52 AM PERSONAL DEVELOPMENT MENTOR Height 160 cm (5' 3) 08/29/2024 10:52 AM PERSONAL DEVELOPMENT MENTOR Body Mass Index 24.34 08/29/2024 10:52 AM PERSONAL DEVELOPMENT MENTOR Plan of Treatment Upcoming Encounters Date Type Department Care Team (Late st Contact Info) Description 2025 3:00 PM PERSONAL DEVELOPMENT MENTOR Office Visit [facility] [address] [place] [address], [place] [phone] Lee Mendez MD [facility] OF ALLERGY[place] [address] Health Maintenance Due Date Last Done Comments COLON MONITORING 1962 COLONOSCOPY - COLON CA SCREENING 1962 CT COLONOGRAPHY - COLON CA SCREENING 1962 FIT - COLON CA SCREENING 1962 FLEX SIG - COLON CA SCREENING 1962 MAMMOGRAM 1962 HIV SCREENING 1977 HEPATITIS C SCREENING 08/28/1980 DTAP/TDAP/TD VACCINES (1 - Tdap) 1981 PNEUMOCOCCAL VACCINE 50+ (1 of 2 - PCV) 1981 Cervical Cancer Screening 1983 PAP SMEAR 1983 PAP with HPV 1992 Respiratory Syncytial Virus (RSV) Vaccine Pt: or over 60 yrs (1 - Risk 50-74 years 1-dose series) 2012 ZOSTER VACCINE (1 of 2) 2012 DEPRESSION SCREENING 10/15/2024 09/26/2023, 06/07/20 22 COVID-19 VACCINE ( - season) 2025 10/19/2021, 01/07/2021, 12/10/2020 INFLUENZA VACCINE (#1) 2025 4, 07/12/2023, 07/23/2022, Additional history exists COLOGUARD (AGES 45-75) - COLON CA SCREENING 08/22/2028 08/22/2025 Colorectal Cancer Screening 08/22/2028 HEPATITIS B VACCINE Aged Out No longe [...] to complete this topic Insurance Care Teams Lamp Shade Joiner Relationship Specialty Start Date End Date Angel Guerra MD [address] [place] [address] PCP - General 01/11/22
--- OUTSIDE RECORDS SUMMARY | 2025-09-02 14:18 | XMS_ITS | Encounter Summary ---
Author Organization [facility] Address [address] [place] [address] Care Team Providers Care Biomedical Repair Technician Name Role Phone Angel Guerra MD Primary Care Provider [phone] Reason for Visit * Reason Onset Date Comments Refill Request 09/26/2023 Encounter Details Date Type Department Care Team (Late st Contact Info) Description 09/26/2023 Telephone [facility] [address] [facility], [place] [address] Trisha Bray MD [address] [place], [place] [id number] Refill Request Social History Tobacco Use Types [...] on file Legal Sex Female 5:13 PM STATISTICAL CONSULTANT Gender Identity Not on file Sexual [...] hopeless Not at all 09/26/2023 2:48 PM STATISTICAL CONSULTANT Nelida Carrasco RN Patient Health Questionnaire -2 Score 0 09/26/2023 2:48 PM STATISTICAL CONSULTANT Nelida Carrasco RN documented as of this encounter Miscellaneous Notes * Telephone Encounter - Trisha Bray MD - 09/26/2023 4:40 PM CST Spoke with [facility]. Gave verbal order to renew gamunex C 50g [id number], and add 500cc NS bolus Trisha Bray MD Allergy & Immunology Fellow ISTICAL CONSULTANT documented in this encounter Plan of Treatment Upcoming Encounters Date Type Department Care Team (Late st Contact Info) Description 2025 3:00 PM STATISTICAL CONSULTANT Office Visit [facility] [address] [place] [address], [place] [address] Lee Mendez MD [address] [place] [address] 2L DIV [place]ERGY[place] [address] documented as of this encounter Visit Diagnoses Not on filedocumented in this encounter Care Teams Biomedical Repair Technician Relationship Specialty Start Date End Date Angel Guerra MD [address] [place] [address] PCP - General 01/11/22 documented as of this encounter
--- OUTSIDE RECORDS SUMMARY | 2025-09-02 14:18 | XMS_ITS | Encounter Summary ---
Author Organization [facility] Address [address] [facility] [place] [address] Care Team Providers Care Nanotechnology Engineering Technologist Name Role Phone Paulette Pedraza MD Primary Care Provider + [phone] Angel Guerra MD Primary Care Provider + [phone] Encounter Details Date Type Department Care Team (Late st Contact Info) Description 08/09/2021 Telephone [facility] [address] [place] [address] Lee Mendez MD [facility] OF ALLERGY/[place] [address] Social History Tobacco Use Types Packs/Day Years Used Date Smoking Tobacco: Every Day Cigarettes Smokeless Tobacco: Current Alcohol Use Standard Drinks/Week Comments No 0 (1 standard drink = 0.6 oz pur e alcohol) PHQ-2 Answer Date Recorded PHQ2 TOTAL SCORE 0 07/27/2021 Comments Unknown Sex and Gender Information Value Date Recorded Sex Assigned at Not on file Legal Sex Female 5:13 PM LINEN CLERK Gender Identity Not on file Sexual Orientation Not on file documented as of this encounter Patient Instructions * Patient Instructions* Lore Amezquita - 08/09/2021 1:14 PM CDT Patient called and would like to talk to Dr. Mendez's nurse in regards to her medication needing to be certified. Contact number is [phone]. documented in this encounter Plan of Treatment Upcoming Encounters Date Type Department Care Team (Late st Contact Info) Description 2025 3:00 PM LINEN CLERK Office Visit [facility] [address] [place] [address], [place] [address] Lee Mendez MD [address] [place] [address] DIV OF ALLERGY/[place] [address] documented as of this encounter Visit Diagnoses Not on filedocumented in this encounter Care Teams Nanotechnology Engineering Technologist Relationship Specialty Start Date End Date Paulette Pedraza MD PCP - General 12/26/16 01/10/22 Angel Guerra MD [address] [facility] [address] [place] [address] PCP - General 01/11/22 documented as of this encounter
--- OUTSIDE RECORDS SUMMARY | 2025-09-02 14:18 | XMS_ITS | Encounter Summary ---
Author Organization [facility] Address [address] [place] [address] Care Team Providers Care Yard Engineer Name Role Phone Angel Guerra MD Primary Care Provider Reason for Visit * Reason Onset Date Comments Results 10/01/2023 Encounter Details Date Type Department Care Team (Late Contact Info) Description 10/01/2023 Telephone [facility] [address] [facility], [place] [address] Trisha Bray MD [address] [place] [address] Results Social History Tobacco Use Types Packs/Day [...] on file Legal Sex Female 5:13 PM LICENSED OCCUPATIONAL THERAPY ASSISTANT Gender Identity Not on file [...] mg/dL 302 272 R, CM Resulting Agency [facility] Parameters Male Ref. Range Female Ref. Range 09/26/23 WBC [phone] 8200 Lymphocytes % 21-48 18-54 19 Lymphocytes [id number] 7375-8486 1558 CD3+ % 75-80 76-78 65 CD3 0517-7257 4250-9244 1013 CD3+CD4+ % (CD4 T cells) 34-61 26-62 38 CD3+CD4+ 564-0961 733-0962 592 CD3+CD8+ % (CD8 T cells) 16-38 14-44 27 CD3+CD8+ 314-950 238-8322 421 CD4:CD8 Ratio 0.97-3.71 0.6-4.4 1.41 CD19 [...] T cell maturation subsets in adults of [facility] [place]. Immunobiology, 219(7), 487-496. Matheus Randle, Matheus Ceja, [...] Trisha Bray MD Allergy & Immunology Fellow NSED OCCUPATIONAL THERAPY ASSISTANT documented in this encounter Plan of Treatment Upcoming Encounters Date Type Department Care Team (Late st Contact Info) Description 2025 3:00 PM LICENSED OCCUPATIONAL THERAPY ASSISTANT Office Visit [facility] [address] [place] [address], [place] [address] Lee Mendez MD [address] [place] [address] DIV OF ALLERGY/[place] [address] documented as of this encounter Visit Diagnoses Not on filedocumented in this encounter Care Teams Yard Engineer Relationship Specialty Start Date End Date Angel Guerra MD [address] [place] [address] PCP - General 01/11/22 documented as of this encounter
--- OUTSIDE RECORDS SUMMARY | 2025-09-02 14:18 | XMS_ITS | Encounter Summary ---
Author Organization [facility] Address [address] [place] [address] Care Team Providers Care Loss Prevention Representative Name Role Phone Paulette Pedraza MD Primary Care Provider + [phone] Angel Guerra MD Primary Care Provider + [phone] Encounter Details Date Type Department Care Team (Late st Contact Info) Description 06/15/2020 Telephone [facility] [address] [place] [address] Lee Mendez MD [address] OF ALLERGY[place] [address] Social History Tobacco Use Types Packs/Day Years Used Date Smoking Tobacco: Every Day Cigarettes Smokeless Tobacco: Current Alcohol Use Standard Drinks/Week Comments No 0 (1 standard drink = 0.6 oz pur e alcohol) Comments Unknown Sex and Gender Information Value Date Recorded Sex Assigned at Not on file Legal Sex Female 5:13 PM BAKERY WORKER CONVEYOR LINE Gender Identity Not on file Sexual Orientation [...] Please call. Thanks. Patiient Call Back number: [phone] documented in this encounter Plan of Treatment Upcoming Encounters Date Type Department Care Team (Late st Contact Info) Description 2025 3:00 PM BAKERY WORKER CONVEYOR LINE Office Visit [facility] [address] [place] [address], [place] [address] Lee Mendez MD [address] [place] [address] DIV OF ALLERGY/[place] [address] documented as of this encounter Visit Diagnoses Not on filedocumented in this encounter Care Teams Loss Prevention Representative Relationship Specialty Start Date End Date Paulette Pedraza MD PCP - General 12/26/16 01/10/22 Angel Guerra MD [address] [place] [address] PCP - General 01/11/22 documented as of this encounter
--- OUTSIDE RECORDS SUMMARY | 2025-09-02 14:19 | XMS_ITS | Encounter Summary ---
Author Organization [facility] Address [address] [facility] [place] [address] Care Team Providers Care Advanced Practice Registered Nurse Name Role Phone Angel Guerra MD Primary Care Provider [phone] Reason for Visit * Reason Onset Date Comments Medication Problem 10/04/2023 Encounter Details Date Type Department Care Team (Late st Contact Info) Description 10/04/2023 Telephone [facility] [address] [facility], [facility] [place] [address] Trisha Bray MD [address] [place] [address] Medication Problem Social History Tobacco Use Types [...] on file Legal Sex Female 5:13 PM FURNITURE UPHOLSTERER Gender Identity Not on file Sexual Orientation Not on file documented as of this encounter Miscellaneous Notes * Telephone Encounter - Trisha Bray MD - 10/04/2023 2:44 PM CST Wrote medical appeal letter to approve gamunex for hypogammaglobulinemia Trisha Bray MD Allergy & Immunology Fellow ITURE UPHOLSTERER documented in this encounter Plan of Treatment Upcoming Encounters Date Type Department Care Team (Late st Contact Info) Description 2025 3:00 PM FURNITURE UPHOLSTERER Office Visit [facility] [address] [place] [address], [place] [address] Lee Mendez MD [address] [place] [address] DIV OF ALLERGY/[place] [address] documented as of this encounter Visit Diagnoses Not on filedocumented in this encounter Care Teams Advanced Practice Registered Nurse Relationship Specialty Start Date End Date Angel Guerra MD [address] [place] [address] PCP - General 01/11/22 documented as of this encounter
--- OUTSIDE RECORDS SUMMARY | 2025-09-02 14:19 | XMS_ITS | Encounter Summary ---
Author Organization [facility] Health Address [address] [facility] [place] [address] Care Team Providers Care Charge Gang Weigher Name Role Phone Paulette Pedraza MD Primary Care Provider + [phone] Angel Guerra MD Primary Care Provider + [phone] Encounter Details Date Type Department Care Team (Late st Contact Info) Description 08/05/2021 Telephone [facility] [address] [place] [address] Lee Mendez MD [facility] OF ALLERGY/[place] [address] Social History Tobacco Use Types Packs/Day Years Used Date Smoking Tobacco: Every Day Cigarettes Smokeless Tobacco: Current Alcohol Use Standard Drinks/Week Comments No 0 (1 standard drink = 0.6 oz pur e alcohol) PHQ-2 Answer Date Recorded PHQ2 TOTAL SCORE 0 07/27/2021 Comments Unknown Sex and Gender Information Value Date Recorded Sex Assigned at Not on file Legal Sex Female 5:13 PM BILLIARD TABLE MECHANIC Gender Identity Not on file Sexual Orientation Not on file documented as of this encounter Patient Instructions * Patient Instructions* Jessica Armijo - 08/05/2021 11:44 AM CDT Pt is calling to get her Gamunex re certified by Dr Mendez documented in this encounter Plan of Treatment Upcoming Encounters Date Type Department Care Team (Late st Contact Info) Description 2025 3:00 PM BILLIARD TABLE MECHANIC Office Visit [facility] - [facility] [address] [place] [address], [place] [address] Lee Mendez MD [address] [place] [address] [address] DIV OF ALLERGY/[place] [address] documented as of this encounter Visit Diagnoses Not on filedocumented in this encounter Care Teams Charge Gang Weigher Relationship Specialty Start Date End Date Paulette Pedraza MD PCP - General 12/26/16 01/10/22 Angel Guerra MD [address] [place] [address] PCP - General 01/11/22 documented as of this encounter
--- OUTSIDE RECORDS SUMMARY | 2025-09-02 14:19 | XMS_ITS | Encounter Summary ---
Author Organization [facility] Address [address] [facility] [place] [address] Care Team Providers Care Production Assembly Supervisor Name Role Phone Paulette Pedraza MD Primary Care Provider + [phone] Angel Guerra MD Primary Care Provider + [phone] Reason for Visit * Reason Onset Date Comments Results 01/15/2019 Encounter Details Date Type Department Care Team (Late st Contact Info) Description 01/15/2019 Telephone [facility] [address] [place] [address] Js Dubon DO [address] [place] [address] Results Social History Tobacco Use Types Packs/Day Years Used Date Smoking Tobacco: Every Day Cigarettes Smokeless Tobacco: Current Alcohol Use Standard Drinks/Week Comments No 0 (1 standard drink = 0.6 oz pur e alcohol) Comments Unknown Sex and Gender Information Value Date Recorded Sex Assigned at Not on file Legal Sex Female 5:13 PM AERIAL SURVEY TECHNICIAN Gender Identity Not on file Sexual Orientation Not on file documented as of this encounter Miscellaneous Notes * Telephone Encounter - Js Dubon DO - 01/15/2019 5:07 PM CDT Received lab results from [facility]. 01/06/2019 IgG 642, Creatine 0.62, eGFR [...] st Contact Info) Description 2025 3:00 PM AERIAL SURVEY TECHNICIAN Office Visit [facility] - Allergy [address] [place] [address], [place] [address] Lee Mendez MD [address] [place] [address] OF ALLERGY/[place] [address] documented as of this encounter Visit Diagnoses Diagnosis Hypogammaglobulinemia (HCC)- Primary Hypogammaglobulinaemia, unspecified Hypogammaglobulinemia (HCC)- Primary Hypogammaglobulinaemia, unspecified Asthma-COPD overlap syndrome (HCC) Tobacco abuse Tobacco use disorder Nonallergic vasomotor rhinitis Allergic rhinitis, cause unspecified Obstructive sleep apnea Obstructive sleep apnea (adult) (pediatric) documented in this encounter Care Teams Production Assembly Supervisor Relationship Specialty Start Date End Date Paulette Pedraza MD PCP - General 12/26/16 01/10/22 Angel Guerra MD [address] [place] [address] PCP - General 01/11/22 documented as of this encounter
--- OUTSIDE RECORDS SUMMARY | 2025-09-02 14:19 | XMS_ITS | Data Portability ---
Author Organization [place] [facility] OFFICE Address [address] [place] [address] Care Team Providers Care Emulsion Coater Name Role Phone BROOKLYN FIGUEROA Primary Care Provider [phone] Assessment No assessment recorded. Plan of Treatment Reminders Order Date Submit Date Provider Last Modified By Organization Details Last Modified Time Details Appointments None recorded. Lab None recorded. Referral None recorded. Procedures None recorded. Surgeries None recorded. Imaging electrocar diogram 2017 018 Not available 9 17:12:22 Medication Orders furosemide 40 mg tablet 2017 018 [email or web address] [facility] #53288, [address] [place], [place], [id number], 0 12:38:49 potassium chloride ER 10 mEq tablet,ext ended release 2017 018 INTERFACE [facility] #[id number], [address] [place], [place], [id number], 8 17:58:14 nitroglyce rin 0.4 mg sublingual tablet 2017 018 [email or web address] Not available 8 10:50:12 metoprolol tartrate 50 mg tablet 2017 018 INTERFACE [facility] #67484, [address] [place], [place], [id number], 8 17:57:45 atorvastat in 40 mg tablet 2017 018 INTERFACE [facility] #[id number], [address] [facility], [place], [id number], 8 17:55:31 fenofibrat e 160 mg tablet 2017 INTERFACE [facility] #29319, [address] [facility], [place], [id number], 8 17:57:46 Patient TargetsNo targets recorded. Patient Instructions Encounter Date Encounter Id Patient Instructions Last Modified By Organization Details Last Modified Time 06/11/2018 [id number] sleep apnea: car e instructions [email or web address] Not available 06/11/2018 17:55:27 learning about low-fat eating [email or web address] Not available 06/11/2018 17:55:27 Scribed by Ronel Su PAPER FINISHER-C lsenci Not available 06/11/2018 17:59:45 05/04/2020 [id number] sleep apnea: car e instructions [email or web address] Not available 05/04/2020 13:28:27 learning about low-fat eating [email or web address] Not available 05/04/2020 13:28:27 05/04/2020 Advise d to go to the ER from the office. Pt. verbalized understanding and states she will go to [facility] from the office. Pt took her own transportation to the ER. Weight loss, Exercise advised Education on smoking. Reports a decrease in use to 4-5 per day from 1ppd. Low cholesterol diet advised Low sodium diet advised. [email or web address] Not available 05/04/2020 13:26:21 Scribed by Nicci Bernard, MSN, FLORAL DESIGNER, PAPER FINISHER-C [email or web address] Not available 05/04/2020 12:48:14 04/04/2021 [id number] sleep apnea: car e instructions [email or web address] Not available 04/04/2021 21:37:57 learning about low-fat eating [email or web address] Not available 04/04/2021 21:37:57 Exercise advised Low cholesterol diet advised Low sodium diet advised [email or web address] Not available 04/04/2021 21:37:07 Scribed by Bhavik Galloway PAPER FINISHER-BC [email or web address] Not available 04/04/2021 21:37:20 10/18/2021 [id number] sleep apnea: car e instructions [email or web address] Not available 10/18/2021 16:10:56 learning about low-fat eating [email or web address] Not available 10/18/2021 16:10:56 Exercise advised Low cholesterol diet advised Low sodium diet advised. [email or web address] Not available 10/18/2021 16:11:04 12/21/2022 [id number] Exercise advised Low cholesterol diet advised Low [...] Address Organization Details Recorded Time Palpitatio ns 65039462 Active 2015 [place] [facility] 6 01:56:30 Benign hypertensi on 55027902 Active 2015 [place] [facility] 4 06:54:58 Disorder of coronary artery 909963581 Active 2015 [place] [facility] 6 01:57:10 Diabetes mellitus 71487052 Active 2015 Insulin dependent [place]indy [place] - [facility] 4 06:55:06 Moderate chronic obstructiv e pulmonary disease 048264176 Active 2015 [place] [facility] 6 01:58:18 Asthma 520082412 Active 2015 [place] [facility] 4 06:55:01 Bronchitis 09899536 Active 2015 [place] [facility] 6 01:58:37 Pneumonia 935320425 Active 2015 [place] [facility] 6 01:58:49 Obstructiv e sleep apnea syndrome 11763225 Active 2015 [place] [facility] 4 06:55:17 Hypothyroi dism 46651120 Active 2015 [place] [facility] 4 06:55:12 Cerebrovas cular accident 176025502 Active 2015 [place] [facility] 6 01:59:26 History of depression 591842458 Active 2015 [place] [facility] 6 01:59:37 Gastroesop hageal reflux disease 985213344 Active 2015 [place] [facility] 6 01:59:48 Degenerati on of interverte bral disc 42991313 Active 2015 [place] [facility] 6 02:00:46 Anxiety 06763145 Active 2015 [place] [facility] 6 02:00:57 Hyperlipid emia 19289935 Active 2016 [place] [facility] 4 06:55:10 Edema of lower extremity 204287398 Active 2016 [place] - [...] Not available Not available Not available 02/10/2016 72461 8003 SNOMED Statu s- Activ e Type- Drug Intol eranc e Xu [place] [facility], [place] - [facility] 6 [...] Address Organization Details Last Updated DateTime 2 75098.5 1 g 95 % 95 % 78 /min 142/80 mm[Hg] [facility] 2 15:53:53 Date Recorded Body height Body mass index (BMI) Body weight Body weight Oxygen saturation Oxygen saturation in Arterial blood by Pulse oximetry Heart rate Systolic And Diastolic Provider Name and Address Organization Details Last Updated DateTime 3 160.02 cm 27.9 kg/m2 34950.5 2 g 93408.8 6 g 90 % 90 % 62 /min 122/62 mm[Hg] ONE[facility] 3 17:29:12 Date Recorded Body weight Heart rate Respiratory rate Oxygen saturation Oxygen saturation in Arterial blood by Pulse oximetry Systolic And Diastolic Provider Name and Address Organization Details Last Updated DateTime 1 23429.5 9 g 79 /min 16 /min 97 % 97 % 104/62 mm[Hg] Christal Galloway [facility] 1 16:08:54 Date Recorded Body weight Heart rate Oxygen saturation Oxygen saturation in Arterial blood by Pulse oximetry Systolic And Diastolic Provider Name and Address Organization Details Last Updated DateTime 0 79359.1 4 g 87 /min 88 % 88 % 128/75 mm[Hg] Fuentes Betancourt [facility] 0 12:31:53 Date Recorded Body height Body mass index (BMI) Body weight Provider Name and Address Organization Details Last Updated DateTime 06/11/2018 160.02 cm 32.1 kg/m2 91339.22 g Mariluz Purcell [facility] 06/11/2018 17:26:23 Social History None [...] Codes Diagnosis Note 1180 Fuentes Bell MD [facility] [address] [place] [address] 02/18/2016 12:00:26 02/18/2016 13:17:22 Hyperlipidemia 23777041 E78.5 Needs to keep LDL less than 70, and HDL more than 40 Disorder o f coronary artery 008726794 I77.9 Diabetes mellitus 070480 09 E11.9 Obstructiv e sleep apnea syndrome 02982697 G47.33 Atypical chest pain 1025 40536 R07.89 Treadmill Myoview Stress test, has high [place] Risk score. Has Known CAD, or CAD risk equivalent . To look for any ischemia. Carotid bruit 801193722 R09.89 8895 Fuentes Bell MD [facility] [place] [address] 11/21/2016 09:40:06 11/22/2016 10:41:10 Benign hypertension 40127822 I10 Now well controlled Disorder o f coronary artery 850701050 I77.9 stable no new angina Palpitations 39485859 R0 0.2 Atypical chest pain 1025 63605 R07.89 Hyperlipidemia 88327814 E78.5 Needs to keep LDL less than 70, and HDL more than 40 Diabetes mellitus 215517 09 E11.9 with fair control Obstructiv e sleep apnea syndrome 32153151 G47.33 Carotid bruit 753567686 R09.89 Edema of l ower extremity 335393382 R60.0 Dyslipidemia 692520842 E 78.5 26822 Fuentes Bell MD [facility] [address] [place] [address] 02/06/2017 14:39:27 02/07/2017 12:40:08 Benign hypertension 03021270 I10 Now well controlled Disorder o f coronary artery 517596208 I77.9 stable angina Dobutamine Myoview stress test, pt can not walk. Has known coronary artery disease, with atypical symptoms now Palpitations 11580346 R0 0.2 Atypical chest pain 1025 96446 R07.89 Hyperlipidemia 01439661 E78.5 Needs to keep LDL less than 70, and HDL more than 40 Diabetes mellitus 557907 09 E11.9 with fair control Obstructiv e sleep apnea syndrome 08905833 G47.33 Carotid bruit 281911595 R09.89 Edema of l ower extremity 566989754 R60.0 Dyslipidemia 559862297 E 78.5 Needs to keep LDL less than 70, and HDL more than 40Will [place] [address] Fuentes Bell MD [facility] [address] [place] [address] 05/21/2018 15:57:23 05/21/2018 17:01:21 Benign hypertension 17615842 I10 Now well controlled Disorder o f coronary artery 436420359 I77.9 stable angina The patient will be scheduled for left heart catheteriz ation, with coronary angiogram, and possible PTCA/Stent . The procedure was discussed with the patient, and risks, benefits, and alternativ e options were explained. The patient was given informatio n about heart catheteriz ation and interventi onal procedures . The patient agrees to proceed. Palpitations 54999109 R0 0.2 Atypical chest pain 1025 31637 R07.89 Hyperlipidemia 66800065 E78.5 Needs to keep LDL less than 70, and HDL more than 40 Diabetes mellitus 368491 09 E11.9 with fair control Obstructiv e sleep apnea syndrome 60413956 G47.33 Carotid bruit 364624465 R09.89 Edema of l ower extremity 341805129 R60.0 On Lasix Dyslipidemia 702053269 E 78.5 Needs to keep LDL less than 70, and HDL more than 40Will [place] [address] Fuentes Bell MD [facility] [address] [place] [address] 06/11/2018 16:37:18 10/21/2018 17:12:22 Benign hypertension 68805153 I10 Now well controlled Disorder o f coronary artery 461790652 I77.9 stable angina Had Cardiac cath on 05/27/18 that mild to moderate coronary artery disease. Maximal medical treatment. Atypical chest pain 1025 64797 R07.89 Occasional , but feels that it is related to asthma. Hyperlipidemia 13155243 E78.5 Needs to keep LDL less than 70, and HDL more than 40. 06/11/18 Discontinu ed Simvastati n 20 mg and started Atorvastat in 40 mg.Continu e Fenofibrat e. Diabetes mellitus 353998 09 E11.9 with fair control Obstructiv e sleep apnea syndrome 87124121 G47.33 Wears CPAP machine. Edema of l ower extremity 574242396 R60.0 On Lasix Benign ess ential hypertension 3189093 I10 Well controlled . [address]15[address] Fuentes Bell MD [facility] [address] [place] [address] 05/04/2020 12:06:21 05/04/2020 13:28:36 Disorder of coronary artery 539334308 I77.9 05/04/2020 stable angina Had Cardiac cath on 05/27/18 that mild to moderate coronary artery disease. Maximal medical treatment. Atypical chest pain 1025 82381 R07.89 05/04/2020S OB, Wheezing, coughing. Advised to go to ER.Occasio nal, but feels that it is related to asthma. Hyperlipidemia 47875693 E78.5 05/04/2020L ast LDL on 12/05/2019 71, Continue Atorvastat inTri 192Continu e Fenofibrat e.Needs to keep LDL less than 70, and HDL more than 40. 06/11/18 Discontinu ed Simvastati n 20 mg and started Atorvastat in 40 mg.Continu e Fenofibrat e. Diabetes mellitus 444492 09 E11.9 05/04/2020L ast A1C 8.9 manage per PCP Obstructiv e sleep apnea syndrome 27862352 G47.33 05/04/2020W ears CPAP machine. Edema of l ower extremity 393497816 R60.0 05/04/2020E maria de jesus noted to the lower extremitie s. Is not taking her lasix Benign ess ential hypertension 6162535 I10 05/04/2020W ell controlled . [address] Fuentes Bell MD [facility] [place] [address] 04/04/2021 16:02:07 04/04/2021 16:58:51 Atypical chest pain 813729230 R07.89 Dobutamine Stress test, has high [place] Risk score. Has Known CAD, or CAD risk equivalent . To look for any ischemia. Hyperlipidemia 90827073 E78.5 Needs to keep LDL less than 70, and HDL more than 40. 020 LDL 42Continue Lipitor 40 mg Diabetes mellitus 014413 E11.9 Treatment and evaluation by primary care doctor Discussed importance of adequate glycemic control to minimize cardiovasc ular disease progressio n, A1C goal of < 7% for type 2 DM. Obstructiv e sleep apnea syndrome 74408168 G47.33 Compliant with nightly CPAP use Edema of l ower extremity 821340485 R60.0 Stable on Lasix Benign ess ential hypertension 1448288 I10 Well controlled on current regimen Dizziness 804436651 R42 Obtain echo to evaluate for structural [place] [address] Fuentes Bell MD [facility] [address] [place] [address] 10/18/2021 15:28:55 10/18/2021 16:18:34 Atypical chest pain 692943060 R07.89 Lexiscan Stress test, has high [place] Risk score. Unable to walk a treadmill due to exercise induced chest pain and increased fall risk due to dizziness. Has Known CAD, or CAD risk equivalent . To look for any ischemia. Hyperlipidemia 29555634 E78.5 Needs to keep LDL less than 70, and HDL more than 40.2 020 LDL 42Continue Lipitor 40 mg Diabetes mellitus 503341 E11.9 Treatment and evaluation by primary care doctor Discussed importance of adequate glycemic control to minimize cardiovasc ular disease progressio n, A1C goal of < 7% for type 2 DM. Obstructiv e sleep apnea syndrome 59966453 G47.33 Compliant with nightly CPAP use Edema of l ower extremity 647517490 R60.0 Stable on LasixLeg elevationO btain echo to evaluate for structural /functiona l disease. Benign ess ential hypertension 1058443 I10 Well controlled on current regimen Dizziness 187143513 R42 Obtain echo to evaluate for structural [place] [address] Fuentes Bell MD [facility] [address] [place] [address] 12/21/2022 16:52:03 12/21/2022 17:58:03 Atypical chest pain 313297649 R07.89 Hyperlipidemia 74153577 E78.5 Needs to keep LDL less than 70, and HDL more than 40. 020 LDL 42Continue Lipitor 40 mg Diabetes mellitus 478250 09 E11.9 Treatment and evaluation by primary care doctor Discussed importance of adequate glycemic control to minimize cardiovasc ular disease progressio n, A1C goal of < 7% for type 2 DM. Obstructiv e sleep apnea syndrome 73864927 G47.33 Compliant with nightly CPAP use Edema of l ower extremity 523390579 R60.0 Stable on LasixLeg elevationO btain echo to evaluate for structural /functiona l disease. Benign ess ential hypertension 8962949 I10 Well controlled on current regimen Dizziness 638150594 R42 24 Hour Holter, to evaluate arrhythmia [...] Truong Member ID Guarantor Name 11/13/2024 1 [facility] - DOS ON OR AFTER 21 (MEDICAID REPLACEMENT - HMO) Alma Anderson [id number] Alma Anderson 06/07/2021 1 [facility] - DOS PRIOR TO 2021 (MEDICAID REPLACEMENT - HMO) Alma Anderson [id number] Alma Anderson Notes Date Note Type Note [...] is normal. EF=>55%. Fuentes Bell MD [address] [place], [address], [facility] 06/11/2018 18:28:12 05/04/2020 text/html [...] get the flu, worse with walking. Has ATTUM on nightly CPAP therapy. She had a [...] function is normal. EF=>55%. Fuentes Bell MD [address] [place], [address], [facility] 05/04/2020 13:28:33 04/04/2021 text/html [...] : Right atrial enlargement, probably old anterior [place] EKG 05/21/18 : Left posterior hemiblock. Possibly [...] [place] [facility] 04/11/2021 14:34:35 10/18/2021 text/html 10/18/20CC : Cardiac follow up, chest [id number] white woman with a PMH of CAD, [...] : Right atrial enlargement, probably old anterior ME EKG 05/21/18 : Left posterior hemiblock. Possibly [...] portion is pending. [place] [facility] 10/29/2021 19:15:52 12/21/2022 text/html 12/21/22CC : Cardiac follow up, [id number] white woman with a PMH of CAD, [...] : Right atrial enlargement, probably old anterior [place] EKG 05/21/18 : Left posterior hemiblock. Possibly [...] nuclear portion is pending. Fuentes Bell MD [address] [place], [address], [place] [facility] 12/21/2022 17:53:36 OBGyn Episode No OBEpisode recorded.
--- OUTSIDE RECORDS SUMMARY | 2025-09-02 14:19 | XMS_ITS | Encounter Summary ---
Author Organization [facility] Health Address [address] [place] [address] Care Team Providers Care Tire Rebuilder Name Role Phone Paulette Pedraza MD Primary Care Provider [phone] Angel Guerra MD Primary Care Provider + [phone] Encounter Details Date Type Department Care Team (Late st Contact Info) Description 07/27/2021 Telephone [facility] [address] [place] [address] Lee Mendez MD [facility] OF ALLERGY/[place] [address] Social History Tobacco Use Types Packs/Day Years Used Date Smoking Tobacco: Every Day Cigarettes Smokeless Tobacco: Current Alcohol Use Standard Drinks/Week Comments No 0 (1 standard drink = 0.6 oz pur e alcohol) PHQ-2 Answer Date Recorded PHQ2 TOTAL SCORE 0 07/27/2021 Comments Unknown Sex and Gender Information Value Date Recorded Sex Assigned at Not on file Legal Sex 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 At [phone]. Thank you documented in this encounter Plan of Treatment Upcoming Encounters Date Type Department Care Team (Late st Contact Info) Description 2025 3:00 PM ARMORED CAR GUARD AND DRIVER Office Visit [facility] [address] [place] [address], [place] [address] Lee Mendez MD [address] [place] [address] DIV OF ALLERGY/[place] [address] documented as of this encounter Visit Diagnoses Not on filedocumented in this encounter Care Teams Tire Rebuilder Relationship Specialty Start Date End Date Paulette Pedraza MD PCP - General 12/26/16 01/10/22 Angel Guerra MD [address] [place] [address] PCP - General 01/11/22 documented as of this encounter
== END 2025-09-02 10:13 | disposition home or self-care (01) ==
LOC: ANHLAB 10:13
PROVIDERS: PCP Family Medicine; Visit Provider Nurse Practitioner Family
DX: R53.83 Other fatigue (principal); E11.9 Type 2 diabetes mellitus without complications; E78.5 Hyperlipidemia, unspecified; E03.9 Hypothyroidism, unspecified
CPT/HCPCS: 36415; 80053; 80061; 82306; 82607; 82746; 83036; 83735; 84443; 85027

== ENCOUNTER 2025-09-13 11:43 | Outpatient (CLI) | payer OTHER, SELFPAY ==
--- NOTE | ~2025-09-13 | XR_ITS ---
EXAMINATION: XR chest 2V DATE: 09/13/2025 12:02 INDICATION: Shortness of breath, cough and congestion TECHNIQUE: PA and lateral views of the chest were obtained. COMPARISON: Chest radiograph date FINDINGS: Calcified right middle lobe nodule consistent with old granulomatous disease. Minimal streaky bibasilar atelectasis/scarring. No other airspace opacities, pulmonary edema, pleural effusion or pneumothorax. The cardiomediastinal silhouette is normal. Mild upper thoracic dextrocurvature with mild to moderate spondylosis. Lower cervical anterior spinal fusion with plate and screw fixation likely at C5-C6. IMPRESSION: 1. Minimal streaky atelectasis/scarring at the bilateral lung bases. No other acute cardiopulmonary disease. Reviewed, dictated and finalized at location A. NICAL SOLUTIONS DIRECTOR IMPRESSION: 1. Minimal streaky atelectasis/scarring at the bilateral lung bases. No other a cute cardiopulmonary disease.
--- OUTSIDE RECORDS SUMMARY | 2025-09-13 11:47 | XMS_ITS | Encounter Summary ---
Author Organization [facility] Address [address] [facility] [place] [address] Care Team Providers Care Slurry Plant Operator Name Role Phone Paulette Pedraza MD Primary Care Provider + [phone] Angel Guerra MD Primary Care Provider + [phone] Encounter Details Date Type Department Care Team (Late st Contact Info) Description 08/09/2021 Telephone [facility] [address] [place] [address] Lee Mendez MD [facility] OF ALLERGY/[place] [address] Social History Tobacco Use Types Packs/Day Years Used Date Smoking Tobacco: Every Day Cigarettes Smokeless Tobacco: Current Alcohol Use Standard Drinks/Week Comments No 0 (1 standard drink = 0.6 oz pur e alcohol) PHQ-2 Answer Date Recorded PHQ2 TOTAL SCORE 0 07/27/2021 Comments Unknown Sex and Gender Information Value Date Recorded Sex Assigned at Not on file Legal 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 Mendez's nurse in regards to her medication needing to be certified. Contact number is [phone]. documented in this encounter Plan of Treatment Not on file documented as of this encounter Visit Diagnoses Not on filedocumented in this encounter Care Teams Slurry Plant Operator Relationship Specialty Start Date End Date Paulette Pedraza MD PCP - General 12/26/16 01/10/22 Angel Guerra MD [address] [place] [address] PCP - General 01/11/22 documented as of this encounter
--- OUTSIDE RECORDS SUMMARY | 2025-09-13 11:47 | XMS_ITS | Encounter Summary ---
Author Organization [facility] Address [address] [facility] [place] [address] Care Team Providers Care Vp Software Support Name Role Phone Angel Guerra MD Primary Care Provider [phone] Reason for Visit * Reason Onset Date Comments Medication Problem 10/04/2023 Encounter Details Date Type Department Care Team (Late st Contact Info) Description 10/04/2023 Telephone [facility] - Allergy [address] 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
--- OUTSIDE RECORDS SUMMARY | 2025-09-13 11:47 | XMS_ITS | Encounter Summary ---
Author Organization [facility] Address [address] [facility] [place] [address] Care Team Providers Care Wafer Substrate Tester Name Role Phone Paulette Pedraza MD Primary Care Provider + [phone] Agnel Guerra MD Primary Care Provider + [phone] Encounter Details Date Type Department Care Team (Late st Contact Info) Description 08/05/2021 Telephone 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
--- OUTSIDE RECORDS SUMMARY | 2025-09-13 11:47 | XMS_ITS | Encounter Summary ---
Author Organization [facility] Address [address] [facility] [place] [address] Care Team Providers Care Science Center Display Builder Name Role Phone Paulette Pedraza MD Primary Care Provider + [phone] Angel Guerra MD Primary Care Provider + [phone] Encounter Details Date Type Department Care Team (Late st Contact Info) Description 06/15/2020 Telephone [facility] [address] [place] [address] Lee Mendez MD [address] OF ALLERGY/[place] [address] Social History Tobacco Use Types Packs/Day Years Used Date Smoking Tobacco: Every Day Cigarettes Smokeless Tobacco: Current Alcohol Use Standard Drinks/Week Comments No 0 (1 standard drink = 0.6 oz pur e alcohol) Comments Unknown Sex and Gender Information Value Date Recorded Sex Assigned at Not on file Legal 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 Thanks. Patiient Call Back number: [phone] documented in this encounter Plan of Treatment Not on file documented as of this encounter Visit Diagnoses Not on filedocumented in this encounter Care Teams Science Center Display Builder Relationship Specialty Start Date End Date Paulette Pedraza MD PCP - General 12/26/16 01/10/22 Angel Guerra MD [address] [place] [address] PCP - General 01/11/22 documented as of this encounter
--- OUTSIDE RECORDS SUMMARY | 2025-09-13 11:47 | XMS_ITS | Clinical Summary ---
Author Organization [facility] Address [address] [place] [address] Care Team Providers Care Vocational Rehab Consultant Name Role Phone Angel Guerra MD Primary Care Provider [phone] Source Comments [facility],non-owned Affiliates and Associated Physician Practices is amultiple site organization consisting of ambulatory clinics and hospital sitesin [place], [place], [place] and [place]. This disclosure is being madepursuant to the Care Everywhere program and may not contain all information available regarding this patient. Last updated 18.[facility] Allergies Active Allergy Reactions Criticality Noted Date [...] 11 4 Active Blood Glucose Monitoring Suppl ([employer] Verio Flex System) w/Device KIT USE TO [...] capsule by mouth 3 times daily Active [employer] Verio test strip TEST BLOOD SUGARS THREE TIMES DAILY 4 Active TRUEplus 5-Bevel Pen [place] 32G X 4 MM [facility] USE TO INJECT VICTOZA EVERY DAY 4 Active albuterol-iprat ropium (Duo-Neb) 0.5-2.5 (3) MG/3ML nebulizer solution USE 1 VIAL VIA NEBULIZER FOUR TIMES DAILY FOR SHORTNESS OF BREATH Active Lancets (FarelogixTOUCH DELICA PLUS 33G EXTRA FINE LANCET) USE TO CHECK BLOOD GLUCOSE THREE TIMES DAILY 3 Active Victoza 18 MG/3ML pen ADMINISTER 1.8 MG UNDER THE SKIN EVERY DAY Active traZODone (Desyrel) 100 MG tablet Take 1 (one) tablet by mouth at bedtime Active azelastine (Astelin) 0.1 % nasal spray [place] 2 (two) sprays into each nostril 2 [...] on file Legal Sex Female 5:13 PM REPAIRER VENEER SHEET Gender Identity Not on file Sexual Orientation Not on file Last Filed Vital Signs Vital Sign Reading Time Taken Comments Blood Pressure 114/70 08/29/2024 10:52 AM REPAIRER VENEER SHEET Pulse 58 08/29/2024 10:52 AM REPAIRER VENEER SHEET Temperature 36.3 C (97.4 F) 08/29/2024 10:52 AM REPAIRER VENEER SHEET Respiratory Rate 18 09/26/2023 2:53 PM REPAIRER VENEER SHEET Oxygen Saturation 93% 08/29/2024 10:52 AM REPAIRER VENEER SHEET Inhaled Oxygen Concentration - - Weight 62.3 kg (137 lb 6.4 oz) 08/29/2024 10:52 AM REPAIRER VENEER SHEET Height 160 cm (5' 3) 08/29/2024 10:52 AM REPAIRER VENEER SHEET Body Mass Index 24.34 08/29/2024 10:52 AM REPAIRER VENEER SHEET Plan of Treatment Health Maintenance Due Date [...] 2) 2012 DEPRESSION SCREENING 10/15/2024 09/26/2023, 06/07/20 COVID-19 VACCINE ( season) 2025 10/19/2021, 01/07/2021, 12/10/2020 INFLUENZA VACCINE (#1) 2025 , 07/12/2023, 07/23/2022, Additional history exists COLOGUARD (AGES [...] patient's age to complete this topic Insurance [facility] Care Teams Vocational Rehab Consultant Relationship Specialty Start Date End Date Angel Guerra MD [address] [place] [address] PCP - General 01/11/22
--- OUTSIDE RECORDS SUMMARY | 2025-09-13 11:47 | XMS_ITS | Encounter Summary ---
Author Organization [facility] Address [address] [facility] [place] [address] Care Team Providers Care Automobile Or Truck Rental Dispatcher Name Role Phone Paulette Pedraza MD Primary Care Provider + [phone] Angel Guerra MD Primary Care Provider + [phone] Reason for Visit * Reason Onset Date Comments Refill Request 07/25/2018 Encounter Details Date Type Department Care Team (Late st Contact Info) Description 07/25/2018 Telephone [facility] [address] [place] [address] Js Khan DO [address] [place] [address] Refill Request Social History Tobacco Use Types Packs/Day Years Used Date Smoking Tobacco: Every Day Cigarettes Smokeless Tobacco: Current Alcohol Use Standard Drinks/Week Comments No 0 (1 standard drink = 0.6 oz pur e alcohol) Comments Unknown Sex and Gender Information Value Date Recorded Sex Assigned at Not on file Legal Sex Female 5:13 PM TWISTHAND Gender Identity Not on file Sexual Orientation Not on file documented as of this encounter Miscellaneous Notes * Telephone Encounter - Js Khan DO - 07/25/2018 11:11 AM CDT Received home certification request from [facility]. documented in this encounter Plan of Treatment Not on file documented as of this encounter Visit Diagnoses Not on filedocumented in this encounter Care Teams Automobile Or Truck Rental Dispatcher Relationship Specialty Start Date End Date Paulette Pedraza MD PCP - General 12/26/16 01/10/22 Angel Guerra MD [address] [facility] [address] [place] [address] PCP - General 01/11/22 documented as of this encounter
--- OUTSIDE RECORDS SUMMARY | 2025-09-13 11:47 | XMS_ITS | Encounter Summary ---
Author Organization [facility] Address [address] [facility] [place] [address] Care Team Providers Care Qa Specialist Name Role Phone Paulette Pedraza MD Primary Care Provider [phone] Angel Guerra MD Primary Care Provider + [phone] Encounter Details Date Type Department Care Team (Late st Contact Info) Description 07/27/2021 Telephone [facility] [address] [place] [address] Lee Mendez MD [facility] OF ALLERGY[place] [address] Social History Tobacco Use Types Packs/Day Years Used Date Smoking Tobacco: Every Day Cigarettes Smokeless Tobacco: Current Alcohol Use Standard Drinks/Week Comments No 0 (1 standard drink = 0.6 oz pur e alcohol) PHQ-2 Answer Date Recorded PHQ2 TOTAL SCORE 0 07/27/2021 Comments Unknown Sex and Gender Information Value Date Recorded Sex Assigned at Not on file Legal Sex Female 5:13 PM 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 At [phone]. Thank you documented in this encounter Plan of Treatment Not on file documented as of this encounter Visit Diagnoses Not on filedocumented in this encounter Care Teams Qa Specialist Relationship Specialty Start Date End Date Paulette Pedraza MD PCP - General 12/26/16 01/10/22 Angel Guerra MD [address] [facility] [address] [place] [address] PCP - General 01/11/22 documented as of this encounter
--- OUTSIDE RECORDS SUMMARY | 2025-09-13 11:47 | XMS_ITS | Encounter Summary ---
Author Organization [facility] Address [address] [facility] [place] [address] Care Team Providers Care Circular Sawyer Stone Name Role Phone Paulette Pedraza MD Primary Care Provider + [phone] Angel Guerra MD Primary Care Provider + [phone] Reason for Visit * Reason Onset Date Comments Results 01/15/2019 Encounter Details Date Type Department Care Team (Late st Contact Info) Description 01/15/2019 Telephone [facility] [address] [place] [address] Js Dubon DO [address] [place] [address] Results Social History Tobacco Use Types Packs/Day Years Used Date Smoking Tobacco: Every Day Cigarettes Smokeless Tobacco: Current Alcohol Use Standard Drinks/Week Comments No 0 (1 standard drink = 0.6 oz pur e alcohol) Comments Unknown Sex and Gender Information Value Date Recorded Sex Assigned at Not on file Legal Sex Female 5:13 PM 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 01/06/2019 IgG 642, Creatine 0.62, eGFR [...] unspecified documented in this encounter Care Teams Circular Sawyer Stone Relationship Specialty Start Date End Date Paulette Pedraza MD PCP - General 12/26/16 01/10/22 Angel Guerra MD [address] [place] [address] PCP - General 01/11/22 documented as of this encounter
--- OUTSIDE RECORDS SUMMARY | 2025-09-13 11:47 | XMS_ITS | Data Portability ---
Author Organization [place] - [facility] OFFICE Address [address] [place] [address] Care Team Providers Care Personnel Administrator Name Role Phone BROOKLYN FIGUEROA Primary Care Provider Assessment No assessment recorded. Plan of Treatment Reminders Order Date Submit Date Provider Last Modified By Organization Details Last Modified Time Details Appointments None recorded. Lab None recorded. Referral None recorded. Procedures None recorded. Surgeries None recorded. Imaging electrocar diogram 2017 018 [email or web address] Not available 9 17:12:22 Medication Orders furosemide 40 mg tablet 2017 018 [email or web address] [facility] #[id number], [address], [place], [id number], 0 12:38:49 potassium chloride ER 10 mEq tablet,ext ended release 2017 018 INTERFACE [facility] #[id number], [address], [place], [id number], 8 17:58:14 nitroglyce rin 0.4 mg sublingual tablet 2017 018 Not available 8 10:50:12 metoprolol tartrate 50 mg tablet 2017 018 INTERFACE [facility] #87063, [address], [place], [id number], 8 17:57:45 atorvastat in 40 mg tablet [address] [facility] #05309, [address] [facility], [place], [place], [id number], 8 17:55:31 fenofibrat e 160 mg tablet [address] [facility] #[id number], [address] [facility], [place], [place], [id number], 8 17:57:46 Patient TargetsNo targets recorded. Patient Instructions Encounter Date Encounter Id Patient Instructions Last Modified By Organization Details Last Modified Time 06/11/2018 [id number] sleep apnea: car e instructions [email or web address] Not available 06/11/2018 17:55:27 learning about low-fat eating [email or web address] Not available 06/11/2018 17:55:27 Scribed by Ronel Su DEPORTATION EXAMINER-C lsenci Not available 06/11/2018 17:59:45 05/04/2020 [id number] sleep apnea: car e instructions [email or web address] Not [...] cholesterol diet advised Low sodium diet advised. [email or web address] Not available 05/04/2020 13:26:21 Scribed by Nicci Bernard, MSN, [employer], DEPORTATION EXAMINER-C [email or web address] Not available 05/04/2020 12:48:14 04/04/2021 [id number] sleep apnea: car e instructions [email or web address] Not available 04/04/2021 21:37:57 learning about low-fat eating [email or web address] Not available 04/04/2021 21:37:57 Exercise advised Low cholesterol diet advised Low sodium diet advised [email or web address] Not available 04/04/2021 21:37:07 Scribed by Bhavik Galloway DEPORTATION EXAMINER-BC [email or web address] Not available 04/04/2021 21:37:20 10/18/2021 [id number] sleep apnea: car e instructions [email or web address] Not available 10/18/2021 16:10:56 learning about low-fat eating [email or web address] Not available 10/18/2021 16:10:56 Exercise advised Low cholesterol diet advised Low sodium diet advised. [email or web address] Not available 10/18/2021 16:11:04 12/21/2022 [id number] Exercise advised Low cholesterol diet advised Low [...] Address Organization Details Recorded Time Palpitatio ns 75595416 Active 2015 [place] [facility] 6 01:56:30 Benign hypertensi on 16594818 Active 2015 [place] - [facility] 4 06:54:58 Disorder of coronary artery 745698335 Active 2015 [place] [facility] 6 01:57:10 Diabetes mellitus 35060250 Active 2015 Insulin dependent Cindy [place]issa [place], [place] - [facility] 4 06:55:06 Moderate chronic obstructiv e pulmonary disease 904383659 Active 2015 [place] [facility] 6 01:58:18 Asthma 866173372 Active 2015 [place] [facility] 4 06:55:01 Bronchitis 61082808 Active 2015 [place] [facility] 6 01:58:37 Pneumonia 153097910 Active 2015 [place] [facility] 6 01:58:49 Obstructiv e sleep apnea syndrome 18160181 Active 2015 [place] [facility] 4 06:55:17 Hypothyroi dism 83195458 Active 2015 [place] [facility] 4 06:55:12 Cerebrovas cular accident 543900035 Active 2015 [place] [facility] 6 01:59:26 History of depression 169230237 Active 2015 [place] [facility] 6 01:59:37 Gastroesop hageal reflux disease 699655634 Active 2015 [place] [facility] 6 01:59:48 Degenerati on of interverte bral disc 03181282 Active 2015 [place] [facility] 6 02:00:46 Anxiety 87542676 Active 2015 [place] [facility] 6 02:00:57 Hyperlipid emia 71035824 Active 2016 [place] [facility] 4 06:55:10 Edema of lower extremity 568694572 Active 2016 C[place], [place] - [...] Not available Not available Not available 02/10/2016 [id number] 8003 SNOMED Statu s- Activ e Type- Drug Intol eranc e Xu Murray [facility], [place] - [facility] 6 [...] Vitals Date Recorded Body weight Oxygen saturation Heart rate Systolic And Diastolic Provider Name and Address Organization Details Last Updated DateTime 10/18/2021 65951.51 g 95 % 78 /min 142/80 mm[Hg] ONEIL ARMSTRONG [facility] 10/18/2021 15:53:53 Date Recorded Body height Body mass index (BMI) Body weight Body weight Oxygen saturation Heart rate Systolic And Diastolic Provider Name and Address Organization Details Last Updated DateTime 3 160.02 cm 27.9 kg/m2 78070.5 2 g 10014.8 6 g 90 % 62 /min 122/62 mm[Hg] ONEIL ARMSTRONG [facility] 3 17:29:12 Date Recorded Body weight Heart rate Respiratory rate Oxygen saturation Systolic And Diastolic Provider Name and Address Organization Details Last Updated DateTime 1 23822.5 9 g 79 /min 16 /min 97 % 104/62 mm[Hg] Christal Galloway [facility] 1 16:08:54 Date Recorded Body weight Heart rate Oxygen saturation Systolic And Diastolic Provider Name and Address Organization Details Last Updated DateTime 05/04/2020 32691.14 g 87 /min 88 % 128/75 mm[Hg] Fuentes Betancourt [facility] 05/04/2020 12:31:53 Date Recorded Body height Body mass index (BMI) Body weight Provider Name and Address Organization Details Last Updated DateTime 06/11/2018 160.02 cm 32.1 kg/m2 58582.22 g Mariluz Purcell [facility] 06/11/2018 17:26:23 Social History [...] Codes Diagnosis Note [id number] Fuentes Bell MD [place] OFF[facility] [place] [address] 02/18/2016 12:00:26 02/18/2016 13:17:22 Hyperlipidemia 01639537 E78.5 Needs to keep LDL less than 70, and HDL more than 40 Disorder o f coronary artery 248709229 I77.9 Diabetes mellitus 371336 09 E11.9 Obstructiv e sleep apnea syndrome 17380803 G47.33 Atypical chest pain 1025 10269 R07.89 Treadmill Myoview Stress test, has high [place] Risk score. Has Known CAD, or CAD risk equivalent . To look for any ischemia. Carotid bruit 039227457 R09.89 [id number] Fuentes Bell MD [place] OFFICE [address] [place] [address] 11/21/2016 09:40:06 11/22/2016 10:41:10 Benign hypertension 82557579 I10 Now well controlled Disorder o f coronary artery 831450477 I77.9 stable no new angina Palpitations 43882652 R0 0.2 Atypical chest pain 1025 66557 R07.89 Hyperlipidemia 78280751 E78.5 Needs to keep LDL less than 70, and HDL more than 40 Diabetes mellitus 056181 09 E11.9 with fair control Obstructiv e sleep apnea syndrome 57191555 G47.33 Carotid bruit 144095724 R09.89 Edema of l ower extremity 764369067 R60.0 Dyslipidemia 572797330 E 78.5 [id number] Fuentes Bell MD [place] OFF[facility] [place] [address] 02/06/2017 14:39:27 02/07/2017 12:40:08 Benign hypertension 10487360 I10 Now well controlled Disorder o f coronary artery 781907997 I77.9 stable angina Dobutamine Myoview stress test, pt can not walk. Has known coronary artery disease, with atypical symptoms now Palpitations 93562023 R0 0.2 Atypical chest pain 1025 00481 R07.89 Hyperlipidemia 47411122 E78.5 Needs to keep LDL less than 70, and HDL more than 40 Diabetes mellitus 164256 09 E11.9 with fair control Obstructiv e sleep apnea syndrome 70029433 G47.33 Carotid bruit 947156513 R09.89 Edema of l ower extremity 753971058 R60.0 Dyslipidemia 653253839 E 78.5 Needs to keep LDL less than 70, and HDL more than 40Will [place] [id number] Fuentes Bell MD [place] OFF[facility] [address] [place] [address] 05/21/2018 15:57:23 05/21/2018 17:01:21 Benign hypertension 16827917 I10 Now well controlled Disorder o f coronary artery 213662191 I77.9 stable angina The patient will be scheduled for left heart catheteriz ation, with coronary angiogram, and possible PTCA/Stent . The procedure was discussed with the patient, and risks, benefits, and alternativ e options were explained. The patient was given informatio n about heart catheteriz ation and interventi onal procedures . The patient agrees to proceed. Palpitations 95054504 R0 0.2 Atypical chest pain 1025 09253 R07.89 Hyperlipidemia 51983105 E78.5 Needs to keep LDL less than 70, and HDL more than 40 Diabetes mellitus 692838 09 E11.9 with fair control Obstructiv e sleep apnea syndrome 42539951 G47.33 Carotid bruit 215606972 R09.89 Edema of l ower extremity 849961020 R60.0 On Lasix Dyslipidemia 699265575 E 78.5 Needs to keep LDL less than 70, and HDL more than 40Will [place] [id number] Fuentes Bell MD [place] OFFICE [address] [place] [address] 06/11/2018 16:37:18 10/21/2018 17:12:22 Benign hypertension 79700181 I10 Now well controlled Disorder o f coronary artery 151003356 I77.9 stable angina Had Cardiac cath on 05/27/18 that mild to moderate coronary artery disease. Maximal medical treatment. Atypical chest pain 1025 27013 R07.89 Occasional , but feels that it is related to asthma. Hyperlipidemia 20361468 E78.5 Needs to keep LDL less than 70, and HDL more than 40. 06/11/18 Discontinu ed Simvastati n 20 mg and started Atorvastat in 40 mg.Continu e Fenofibrat e. Diabetes mellitus 628740 09 E11.9 with fair control Obstructiv e sleep apnea syndrome 32929684 G47.33 Wears CPAP machine. Edema of l ower extremity 253088006 R60.0 On Lasix Benign ess ential hypertension 2915185 I10 Well controlled . [id number] Fuentes Bell MD [place] OFFICE [address] [place] [address] 05/04/2020 12:06:21 05/04/2020 13:28:36 Disorder of coronary artery 145974585 I77.9 05/04/2020 stable angina Had Cardiac cath on 05/27/18 that mild to moderate coronary artery disease. Maximal medical treatment. Atypical chest pain 1025 50127 R07.89 05/04/2020S OB, Wheezing, coughing. Advised to go to ER.Petra soto, but feels that it is related to asthma. Hyperlipidemia 40629811 E78.5 05/04/2020L ast LDL on 12/05/2019 71, Continue Atorvastat inTri 192Continu e Fenofibrat e.Needs to keep LDL less than 70, and HDL more than 40. 06/11/18 Discontinu ed Simvastati n 20 mg and started Atorvastat in 40 mg.Continu e Fenofibrat e. Diabetes mellitus 465658 09 E11.9 05/04/2020L ast A1C 8.9 manage per PCP Obstructiv e sleep apnea syndrome 91814567 G47.33 05/04/2020W ears CPAP machine. Edema of l ower extremity 943206660 R60.0 05/04/2020E maria de jesus noted to the lower extremitie s. Is not taking her lasix Benign ess ential hypertension 4166135 I10 05/04/2020W ell controlled . [id number] Fuentes Bell MD [place] [facility] [address] [place] [address] 04/04/2021 16:02:07 04/04/2021 16:58:51 Atypical chest pain 708381245 R07.89 Dobutamine Stress test, has high [place] Risk score. Has Known CAD, or CAD risk equivalent . To look for any ischemia. Hyperlipidemia 01962591 E78.5 Needs to keep LDL less than 70, and HDL more than 40. 020 LDL 42Continue Lipitor 40 mg Diabetes mellitus 640339 09 E11.9 Treatment and evaluation by primary care doctor Discussed importance of adequate glycemic control to minimize cardiovasc ular disease progressio n, A1C goal of < 7% for type 2 DM. Obstructiv e sleep apnea syndrome 13577112 G47.33 Compliant with nightly CPAP use Edema of l ower extremity 901859249 R60.0 Stable on Lasix Benign ess ential hypertension 8105109 I10 Well controlled on current regimen Dizziness 971664664 R42 Obtain echo to evaluate for structural [place] [id number] Fuentes Bell MD [place] [facility] [address] [place] [address] 10/18/2021 15:28:55 10/18/2021 16:18:34 Atypical chest pain 329183716 R07.89 Lexiscan Stress test, has high [place] Risk score. Unable to walk a treadmill due to exercise induced chest pain and increased fall risk due to dizziness. Has Known CAD, or CAD risk equivalent . To look for any ischemia. Hyperlipidemia 87990640 E78.5 Needs to keep LDL less than 70, and HDL more than 40. 020 LDL 42Continue Lipitor 40 mg Diabetes mellitus 793572 09 E11.9 Treatment and evaluation by primary care doctor Discussed importance of adequate glycemic control to minimize cardiovasc ular disease progressio n, A1C goal of < 7% for type 2 DM. Obstructiv e sleep apnea syndrome 98847190 G47.33 Compliant with nightly CPAP use Edema of l ower extremity 404536159 R60.0 Stable on LasixLeg elevationO btain echo to evaluate for structural /functiona l disease. Benign ess ential hypertension 3000513 I10 Well controlled on current regimen Dizziness 949117105 R42 Obtain echo to evaluate for structural [place] [id number] Fuentes Bell MD [place] OFFICE [address] [place] [address] 12/21/2022 16:52:03 12/21/2022 17:58:03 Atypical chest pain 640958449 R07.89 Hyperlipidemia 75072311 E78.5 Needs to keep LDL less than 70, and HDL more than 40. 020 LDL 42Continue Lipitor 40 mg Diabetes mellitus 897108 09 E11.9 Treatment and evaluation by primary care doctor Discussed importance of adequate glycemic control to minimize cardiovasc ular disease progressio n, A1C goal of < 7% for type 2 DM. Obstructiv e sleep apnea syndrome 09138789 G47.33 Compliant with nightly CPAP use Edema of l ower extremity 009864927 R60.0 Stable on LasixLeg elevationO btain echo to evaluate for structural /functiona l disease. Benign ess ential hypertension 7788421 I10 Well controlled on current regimen Dizziness 038726234 R42 24 Hour Holter, to evaluate arrhythmia [...] Truong Member ID Guarantor Name 11/13/2024 1 [facility] ON OR AFTER 04/14/21 (MEDICAID REPLACEMENT - HMO) Alma Anderson [id number] Alma Anderson 06/07/2021 1 [facility] PRIOR TO 04/14/2021 (MEDICAID REPLACEMENT - HMO) Alma Anderson [id number] Alma Anderson Notes Date Note Type Note [...] function is normal. EF=>55%. Fuentes Bell MD [address] [place], [address], [facility] 06/11/2018 18:28:12 05/04/2020 text/html [...] is normal. EF=>55%. Fuentes Bell MD [address] [place], [address], [facility] 05/04/2020 13:28:33 04/04/2021 [...] : Right atrial enlargement, probably old anterior HI EKG 05/21/18 : Left posterior hemiblock. Possibly [...] text/html 10/18/20CC : Cardiac follow up, chest [id number] white woman with a PMH of CAD, [...] : Right atrial enlargement, probably old anterior HI EKG 05/21/18 : Left posterior hemiblock. Possibly [...] ischemia nuclear portion is pending. Alayna Olivo [facility], [place] - [facility] 10/29/2021 19:15:52 12/21/2022 text/html 12/21/22CC : Cardiac follow up, [id number] white woman with a PMH of CAD, [...] : Right atrial enlargement, probably old anterior HI EKG 05/21/18 : Left posterior hemiblock. Possibly [...] nuclear portion is pending. Fuentes Bell MD [address] [place], [address], [place] [facility] 12/21/2022 17:53:36 OBGyn Episode No OBEpisode recorded.
--- OUTSIDE RECORDS SUMMARY | 2025-09-13 11:47 | XMS_ITS | Encounter Summary ---
Author Organization [facility] Address [address] [facility] [place] [address] Care Team Providers Care Automobile Upholsterer Name Role Phone Angel Guerra MD Primary Care Provider Reason for Visit * Reason Onset Date Comments Refill Request 09/26/2023 Encounter Details Date Type Department Care Team (Late st Contact Info) Description 09/26/2023 Telephone [facility] - Allergy [address] [facility] [place] [address] Trisha Bray MD [address] [place], [place] [id number] Refill Request Social History Tobacco Use Types [...] on file Legal Sex Female 5:13 PM [employer] Gender Identity Not on file Sexual Orientation [...] hopeless Not at all 09/26/2023 2:48 PM [employer] Nelida Carrasco RN Patient Health Questionnaire -2 Score 0 09/26/2023 2:48 PM [employer] Nelida Carrasco RN documented as of this encounter Miscellaneous Notes * Telephone Encounter - Trisha Bray MD - 09/26/2023 4:40 PM CST Spoke with [facility]. Gave verbal order to renew gamunex C 50g [id number], and add 500cc NS bolus Trisha Bray MD Allergy & Immunology Fellow [facility] documented in this encounter Plan of Treatment Not on file documented as of this encounter Visit Diagnoses Not on filedocumented in this encounter Care Teams Automobile Upholsterer Relationship Specialty Start Date End Date Angel Guerra MD [address] [place] [address] PCP - General 01/11/22 documented as of this encounter
--- OUTSIDE RECORDS SUMMARY | 2025-09-13 11:47 | XMS_ITS | Encounter Summary ---
Author Organization [facility] Address [address] [facility] [place] [address] Care Team Providers Care Environmental Health And Safety Leader Name Role Phone Angel Guerra MD Primary Care Provider [phone] Reason for Visit * Reason Onset Date Comments Results 10/01/2023 Encounter Details Date Type Department Care Team (Late Contact Info) Description 10/01/2023 Telephone [facility] - [facility] [address] [facility] [place] [address] Trisha Bray MD [address] [place] [address] Results Social History Tobacco Use Types Packs/Day [...] on file 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 Range Female Ref. Range 09/26/23 WBC [id number] 2600-73483 8200 Lymphocytes % 21-48 18-54 19 Lymphocytes 5492-6792 0363-1998 1558 CD3+ % 75-80 76-78 65 CD3 2774-8078 0388-8819 1013 CD3+CD4+ % (CD4 T cells) 34-61 26-62 38 CD3+CD4+ 564-4684 445-3801 592 CD3+CD8+ % (CD8 T cells) 16-38 14-44 27 CD3+CD8+ 314-059 614-4306 421 CD4:CD8 Ratio 0.97-3.71 0.6-4.4 1.41 CD19 [...] T cell maturation subsets in adults of [facility]. Immunobiology, 219(7), 487-496. Matheus Randle, [...] Trisha Bray MD Allergy & Immunology Fellow K POWDER GLAZING OPERATOR documented in this encounter Plan of Treatment Not on file documented as of this encounter Visit Diagnoses Not on filedocumented in this encounter Care Teams Environmental Health And Safety Leader Relationship Specialty Start Date End Date Angel Guerra MD [address] [facility] [address] [place] [address] PCP - General 01/11/22 documented as of this encounter
== END 2025-09-13 11:44 | disposition home or self-care (01) ==
PROVIDERS: PCP Family Medicine; Visit Provider Nurse Practitioner Family
DX: R06.02 Shortness of breath (principal); R05.9 Cough, unspecified
CPT/HCPCS: 71046